=== PATIENT | male | born 1955 | race Caucasian/White ===

== ENCOUNTER 2020-04-18 08:20 | Outpatient (REF) | payer MEDICARE, SELFPAY ==
--- NOTE | 2020-04-18 13:24 | MHC.AU.P13 ---
Adult Audiological Evaluation Date of Visit: 04/18/20 Reason for Appointment: Audiological evaluation due to concerns for decreased hearing, particularly in the right ear. He feels that he is able to hear well most of the time, but notes that he turns the TV louder than his family members and noticed the right ear doesn't hear as well when he's wearing a headset. He also notes concerns for his balance which has been worsening over the past 5 years. Mr. Lee reports that he has been experiencing occasional tinnitus over the past year. Does patient feel they have a hearing loss?: Yes If Yes, Which Ear?: Right Ear When Was Hearing Difficulty First Noticed?: ~ 1 year ago Has hearing been tested previously?: Yes Previous Hearing Test Results: Several years ago, results not available to be reviewed today. He believes his hearing was normal at that time. Hearing Handicap Inventory: HHIE SCORE: 6 Based on HHIE score, patient has: No perceived hearing handicap Ear History: Family History of Hearing Loss?: Yes History of Ear Wax Buildup: Both Ears Bothersome Tinnitus/Ringing/Noises in Ears: Both ears, intermittent, sounds like insect buzzing, happens ~2x per week Medical History: Medical History: Cancer Medical History (Other): Skin cancer removed surgically, Skull fracture at age 3, TURP surgery, neuropathy of the lower extremities. He reports that he has been experiencing in some balance problems and frequently trips, which has resulted in a few falls. Otoscopy: Right Ear: Unremarkable Left Ear: Unremarkable Tympanometry: Right Ear: Hypercompliant Middle Ear System (Type Ad) Left Ear: Could Not Obtain Seal Hearing Evaluation: Transducer(s) Used: Insert Earphones, Bone Conduction Method: Conventional Audiometry Stimuli Used: Pure Tones Right Ear: Description of Hearing: Mild to moderate conductive hearing loss from 250-1000 Hz, mild sensorineural hearing loss at 1500 Hz, normal hearing at 2000 Hz, normal hearing with a 15 dBHL air-bone gap at 3000 Hz, mild conductive hearing loss at 4000 Hz, and a mild hearing loss at 8000 Hz. Left Ear: Description of Hearing: Normal hearing from 250-2000 with a 10-15 dBHL air-bone gap at 250-1000 Hz, sloping to a mild mixed hearing loss at 3000 Hz, a mild conductive hearing loss at 4000 Hz, and a moderate hearing loss at 8000 Hz. Speech Recognition Threshold (SRT): Method Used: Monitored Live Voice Stimuli Used: Spondee Words Right Ear: 30 dBHL Left Ear: 10 dBHL Word Discrimination: Method: Recorded Lists Word Lists Used: NU-6 Right Ear: 92% at 70 dBHL Left Ear: 88% at 50 dBHL Recommendations: Recommendations: Audiological re-evaluation if changes are noted. Audiological re-evaluation in one year. Referral to Ear, Nose, and Throat is recommended. Recommendations (Other): Given asymmetric, conductive hearing loss, recommend a referral to ENT to evaluate. Diagnosis: Primary Diagnosis: H90.6 Mixed Hearing Loss, Bilateral Services Performed: Services Performed: Comprehensive Audiological Evaluation (CPT 82554) Tympanometry (CPT 02717) Signature: Provider: Richard Pinto, CCC-A
== END 2020-04-18 08:21 | disposition home or self-care (01) ==
LOC: HO.SH 08:20
PROVIDERS: PCP Internal Medicine; Visit Provider Internal Medicine
DX: H90.6 Mixed conductive and sensorineural hearing loss, bilateral (principal)
CPT/HCPCS: 92557; 92567

== ENCOUNTER → 2021-06-10 11:28 | Outpatient (BNVA) | payer MEDICARE, SELFPAY | PROVIDERS: PCP Family Medicine; Visit Provider Psychiatry & Neurology Neurology | DX: G20 Parkinson's disease (principal); G25.81 Restless legs syndrome; R26.9 Unspecified abnormalities of gait and mobility; R20.0 Anesthesia of skin; R20.2 Paresthesia of skin | CPT/HCPCS: 99212 ==

== ENCOUNTER 2021-07-08 13:56 | Outpatient (REF) | payer MEDICARE, SELFPAY ==
--- NOTE | ~2021-07-08 | XR_ITS ---
EXAMINATION: XR CERVICAL SPINE CLINICAL INFORMATION: Fall. Pain. COMPARISON: None TECHNIQUE: 3 views of the cervical spine were obtained. FINDINGS: Bone alignment is normal. No fracture or dislocation is seen. There is multilevel degenerative spondylosis and degenerative disc disease from C3-4 to C7-T1, greatest at C4-C5, C5-C6 and C6-C7. There is degenerative spondylosis at C2-C3. There is bilateral facet arthritis. Prevertebral soft tissues are normal. XR/XR cervical spine 3V IMPRESSION: Severe degenerative changes. No fracture or dislocation seen.
--- NOTE | ~2021-07-08 | XR_ITS ---
EXAMINATION: XR LUMBOSACRAL SPINE CLINICAL INFORMATION: Pain. History of fall. COMPARISON: None TECHNIQUE: Three views of the lumbosacral spine. FINDINGS: Bone alignment is normal. No fracture or dislocation is seen. There is multilevel degenerative spondylosis. There is degenerative disc disease at L4-L5 and L5-S1. There is lower lumbar spine facet arthritis. XR/XR lumbar spine 2-3V IMPRESSION: Degenerative changes.
== END 2021-07-08 13:57 | disposition home or self-care (01) ==
LOC: HO.XRAY 13:56
PROVIDERS: Visit Provider Psychiatry & Neurology Neurology
DX: R26.9 Unspecified abnormalities of gait and mobility (principal); R20.0 Anesthesia of skin
CPT/HCPCS: 72040; 72100

== ENCOUNTER 2021-08-29 08:41 | Outpatient (REF) | payer MEDICARE, SELFPAY ==
--- NOTE | 2021-08-29 08:45 | EMG_ITS ---
Bilateral tibial and prone peroneal motor studies were performed. Bilateral superficial peroneal and sural sensory studies were performed. Tibial H reflexes were obtained and paraspinal muscles were tested with a needle. IMPRESSION: This study was quite abnormal suggestive of severe sensorimotor peripheral neuropathy that is likely demyelinating to start with. This type of pattern can be seen in later stages of chronic inflammatory demyelinating polyneuropathy. Appropriate investigations and management are recommended. MD ANA Gonzalez/MARISOL / [id number]
== END 2021-08-29 08:42 | disposition home or self-care (01) ==
LOC: HO.NEURO 08:41
PROVIDERS: Visit Provider Psychiatry & Neurology Neurology
DX: R20.0 Anesthesia of skin (principal); R20.2 Paresthesia of skin; R26.9 Unspecified abnormalities of gait and mobility
CPT/HCPCS: 95886; 95911

== ENCOUNTER → 2021-09-02 09:24 | Outpatient (BNVA) | payer MEDICARE, SELFPAY | PROVIDERS: PCP Family Medicine; Visit Provider Psychiatry & Neurology Neurology | DX: G20 Parkinson's disease (principal); G25.81 Restless legs syndrome; G62.89 Other specified polyneuropathies; R26.9 Unspecified abnormalities of gait and mobility | CPT/HCPCS: 99212 ==

== ENCOUNTER 2021-09-09 11:07 | Outpatient (REF) | payer MEDICARE, SELFPAY ==
[2021-09-09 11:42] LABS: MANUAL DIFF FLAG NO
[2021-09-09 12:23] LABS: Basophils Percent Auto 0.2 % (0-2); Eosinophils Absolute Auto 0.1 X10*3/uL (0.0-0.4); Eosinophils Percent Auto 1.1 % (0-4); Hematocrit 42.1 % (42.0-52.0); Hemoglobin 14.2 g/dl (14.0-18.0); Imm Gran Abs Auto 0.01 X10*3/uL (0.00-0.03); Imm Gran Pct Auto 0.2 % (0.0-0.4); Lymphocytes Absolute Auto 1.7 X10*3/uL (1.2-4.9); Mean Corpuscular HGB Conc 33.7 g/dl (31.0-36.0); Mean Corpuscular Hemoglobin 30.8 pg (27.0-33.0); Mean Corpuscular Volume 91.3 fL (80.0-98.0); Mean Platelet Volume 10.2 fL (9.4-12.4); Monocytes Absolute Auto 0.6 X10*3/uL (0.1-1.2); Monocytes Percent Auto 10.8 % (2-11); Neutrophils Absolute Auto 2.9 x10*3/uL (2.0-8.3); Neutrophils Percent Auto 55.7 % (45-73); Platelet Count 203 X10*3/uL (160-400); Red Blood Count 4.61 X10*6/uL (4.60-5.80); Red Cell Distribution Width 12.8 % (11.0-16.0); White Blood Count 5.3 X10*3/uL (4.8-10.8)
[2021-09-09 13:02] LABS: Alanine Aminotransferase 16 U/L (0-40); Albumin Level 4.1 g/dL (3.5-5.0); Alkaline Phosphatase 61 U/L (39-117); Anion Gap 13 (12-20); Aspartate Amino Transferase 14 U/L (5-37); Bilirubin Total 0.6 mg/dL (0.0-1.0); Blood Urea Nitrogen 15 mg/dL (9-16); C Reactive Protein 0.04 mg/dL (< or = 0.50); Calcium 9.2 mg/dL (8.4-10.2); Carbon Dioxide 27 mmol/L (22-29); Chloride 107 mmol/L (96-108); Estimated Glomerular Filt Rate > 60; Glucose Random 85 mg/dL (60-115); Potassium 4.2 mmol/L (3.3-5.1); Sodium 143 mmol/L (135-145); Total Protein 6.7 g/dL (6.5-8.0)
[2021-09-09 13:26] LABS: Thyroid Stimulating Hormone 1.01 uIU/mL (0.32-4.0)
[2021-09-09 13:29] LABS: Vitamin B12 227 pg/mL (200-900)
[2021-09-10 04:38] LABS: HBS Num1 9.69 mIU/mL (0-7.99); HBc Num1 0.05 S/CO (0.00-0.79); HBsAGNum1 0.21 S/CO (0.00-0.99); Hepatitis B Core Antibody Nonreactive (Nonreactive); Hepatitis B Surface Antigen Negative (Negative); ~HepC Num1 0.09 S/CO (0.00-0.79); ~Hepatitis C Antibody Nonreactive (Nonreactive)
[2021-09-10 05:20] LABS: ~Hepatitis B Surface Antibody GRAYZONE (Nonreactive)
[2021-09-10 21:17] LABS: Lyme Abs Screen <0.90 index
[2021-09-11 04:11] LABS: Hepatitis A Antibody IgM 0.26 Index (0-0.79); ~Hepatitis A Antibody IgM Nonreactive (Nonreactive)
[2021-09-11 23:32] LABS: Anti Nuclear Antibody Pattern Nuclear, Homogeneous; Anti Nuclear Antibody Screen POSITIVE (NEGATIVE); Anti Nuclear Antibody Titer 1:40 titer
[2021-09-12 15:11] LABS: Angiotensin Converting Enzyme 21.4 U/L (9-67)
[2021-09-18 16:51] LABS: Mercury, serum/plasma None Detected mcg/L
== END 2021-09-09 11:08 | disposition home or self-care (01) ==
LOC: HO.LAB 11:07
PROVIDERS: PCP Family Medicine; Visit Provider Psychiatry & Neurology Neurology
DX: G62.89 Other specified polyneuropathies (principal)
CPT/HCPCS: 36415; 80053; 82164; 82607; 82746; 83825; 84443; 85025; 86038; 86039; 86140; 86617; 86618; 86704; 86706; 86709; 86803; 87340

== ENCOUNTER → 2021-11-15 13:24 | Outpatient (BNVA) | payer MEDICARE, SELFPAY | PROVIDERS: PCP Family Medicine; Visit Provider Psychiatry & Neurology Neurology | DX: G20 Parkinson's disease (principal); R26.9 Unspecified abnormalities of gait and mobility; G25.81 Restless legs syndrome; G62.89 Other specified polyneuropathies | CPT/HCPCS: 99212 ==

== ENCOUNTER 2022-01-07 12:03 | Outpatient (REF) | payer MEDICARE, SELFPAY ==
--- NOTE | 2022-01-07 12:09 | ECG_ITS ---
Test Reason : circular symptoms r09.89 Blood Pressure : / mmHG Vent. Rate : 065 BPM Atrial Rate : 065 BPM P-R Int : 174 ms QRS Dur : 098 ms QT Int : 414 ms P-R-T Axes : 079 078 063 degrees QTc Int : 430 ms Sinus rhythm with marked sinus arrhythmia with occasional Premature ventricular complexes Otherwise normal ECG No previous ECGs available Referred By: Aba Soto Electronically Signed By:YOLANDE GONZALEZ
[2022-01-07 13:56] LABS: C Reactive Protein 0.07 mg/dL (< or = 0.50)
[2022-01-07 15:05] LABS: Appearance Urine Cloudy; Color Urine Yellow; Glucose Urine UA Negative (Negative); Leukocyte Esterase Urine Small (1+) (Negative); Nitrite Urine Positive (Negative); Urine Blood Negative (Negative); Urine Ketones Trace mg/dL (Negative); Urine Protein Trace mg/dL (Neg-Trace)
[2022-01-07 15:10] LABS: Bacteria Urine 4+ (None Seen); Hyaline Casts Urine 0-2 /LPF (0-2); RBC Urine 0-2 /HPF (0-2); Squamous Epithelial Cell Urine 0-2 /HPF (0-2)
[2022-01-07 15:28] LABS: Creatinine Urine 123.65 mg/dL; Protein/Creatinine Ratio, Ur 0.12 (<0.2); Total Protein Urine Random 15 mg/dL (<12)
[2022-01-08 12:47] LABS: Anti DNA DS Antibody <1 IU/mL; SM/Ribonucleoprotein Ab <1.0 NEG AI (<1.0 NEG); Smith Protein <1.0 NEG AI (<1.0 NEG)
== END 2022-01-07 12:04 | disposition home or self-care (01) ==
LOC: HO.LAB 12:03
PROVIDERS: PCP Family Medicine; Visit Provider Internal Medicine Rheumatology
DX: G62.89 Other specified polyneuropathies (principal); R09.89 Other specified symptoms and signs involving the circulatory and respiratory systems; R76.8 Other specified abnormal immunological findings in serum
CPT/HCPCS: 36415; 81001; 84156; 86140; 86225; 86235; 93005; 99202

== ENCOUNTER → 2022-02-14 15:27 | Outpatient (BNVA) | payer MEDICARE, SELFPAY | PROVIDERS: PCP Family Medicine; Visit Provider Psychiatry & Neurology Neurology | DX: G20 Parkinson's disease (principal); R26.9 Unspecified abnormalities of gait and mobility; G25.81 Restless legs syndrome; G62.89 Other specified polyneuropathies | CPT/HCPCS: 99212 ==

== ENCOUNTER → 2022-05-19 09:30 | Outpatient (BNVA) | payer MEDICARE, SELFPAY | PROVIDERS: PCP Family Medicine; Visit Provider Psychiatry & Neurology Neurology | DX: G20 Parkinson's disease (principal); R26.9 Unspecified abnormalities of gait and mobility; G25.81 Restless legs syndrome; G61.81 Chronic inflammatory demyelinating polyneuritis | CPT/HCPCS: 99212 ==

== ENCOUNTER 2022-06-09 07:46 | Outpatient (REF) | payer MEDICARE, SELFPAY | END 2022-06-09 07:47 | disposition home or self-care (01) | LOC: HO.MDS 07:46 | PROVIDERS: Visit Provider Psychiatry & Neurology Neurology | DX: G61.81 Chronic inflammatory demyelinating polyneuritis (principal) | CPT/HCPCS: 96365; 96366; J1569 ==

== ENCOUNTER 2022-06-11 07:56 | Outpatient (REF) | payer MEDICARE, SELFPAY | END 2022-06-11 07:57 | disposition home or self-care (01) | LOC: HO.MDS 07:56 | PROVIDERS: Visit Provider Psychiatry & Neurology Neurology | DX: G61.81 Chronic inflammatory demyelinating polyneuritis (principal) | CPT/HCPCS: 96365; 96366; J1569 ==

== ENCOUNTER 2022-06-13 08:04 | Outpatient (REF) | payer MEDICARE, SELFPAY | END 2022-06-13 08:05 | disposition home or self-care (01) | LOC: HO.MDS 08:04 | PROVIDERS: Visit Provider Psychiatry & Neurology Neurology | DX: G61.81 Chronic inflammatory demyelinating polyneuritis (principal) | CPT/HCPCS: 96365; 96366; J1569 ==

== ENCOUNTER 2022-06-18 08:00 | Outpatient (REF) | payer MEDICARE, SELFPAY | END 2022-06-18 08:01 | disposition home or self-care (01) | LOC: HO.MDS 08:00 | PROVIDERS: Visit Provider Psychiatry & Neurology Neurology | DX: G61.81 Chronic inflammatory demyelinating polyneuritis (principal) | CPT/HCPCS: 96365; 96366; J1569 ==

== ENCOUNTER 2022-06-20 08:06 | Outpatient (REF) | payer MEDICARE, SELFPAY | END 2022-06-20 08:07 | disposition home or self-care (01) | LOC: HO.MDS 08:06 | PROVIDERS: Visit Provider Psychiatry & Neurology Neurology | DX: G61.81 Chronic inflammatory demyelinating polyneuritis (principal) | CPT/HCPCS: 96365; 96366; J1569 ==

== ENCOUNTER 2022-07-14 08:06 | Outpatient (REF) | payer MEDICARE, SELFPAY | END 2022-07-14 08:07 | disposition home or self-care (01) | LOC: HO.MDS 08:06 | PROVIDERS: Visit Provider Psychiatry & Neurology Neurology | DX: G61.81 Chronic inflammatory demyelinating polyneuritis (principal) | CPT/HCPCS: 96365; 96366; J1569 ==

== ENCOUNTER 2022-07-16 08:34 | Outpatient (REF) | payer MEDICARE, SELFPAY | END 2022-07-16 08:35 | disposition home or self-care (01) | LOC: HO.MDS 08:34 | PROVIDERS: Visit Provider Psychiatry & Neurology Neurology | DX: G61.81 Chronic inflammatory demyelinating polyneuritis (principal) | CPT/HCPCS: 96365; 96366; J1569 ==

== ENCOUNTER 2022-07-18 08:25 | Outpatient (REF) | payer MEDICARE, SELFPAY | END 2022-07-18 08:26 | disposition home or self-care (01) | LOC: HO.MDS 08:25 | PROVIDERS: Visit Provider Psychiatry & Neurology Neurology | DX: G61.81 Chronic inflammatory demyelinating polyneuritis (principal) | CPT/HCPCS: 96365; 96366; J1569 ==

== ENCOUNTER 2022-07-21 08:36 | Outpatient (REF) | payer MEDICARE, SELFPAY | END 2022-07-21 08:37 | disposition home or self-care (01) | LOC: HO.MDS 08:36 | PROVIDERS: Visit Provider Psychiatry & Neurology Neurology | DX: G61.81 Chronic inflammatory demyelinating polyneuritis (principal) | CPT/HCPCS: 96365; 96366; J1569 ==

== ENCOUNTER 2022-07-25 08:30 | Outpatient (REF) | payer MEDICARE, SELFPAY | END 2022-07-25 08:31 | disposition home or self-care (01) | LOC: HO.MDS 08:30 | PROVIDERS: Visit Provider Psychiatry & Neurology Neurology | DX: G61.81 Chronic inflammatory demyelinating polyneuritis (principal) | CPT/HCPCS: 96365; 96366; J1569 ==

== ENCOUNTER 2022-08-11 08:33 | Outpatient (REF) | payer MEDICARE, SELFPAY | END 2022-08-11 08:34 | disposition home or self-care (01) | LOC: HO.MDS 08:33 | PROVIDERS: Visit Provider Psychiatry & Neurology Neurology | DX: G61.81 Chronic inflammatory demyelinating polyneuritis (principal) | CPT/HCPCS: 96365; 96366; J1569 ==

== ENCOUNTER 2022-08-15 08:34 | Outpatient (REF) | payer MEDICARE, SELFPAY | END 2022-08-15 08:35 | disposition home or self-care (01) | LOC: HO.MDS 08:34 | PROVIDERS: Visit Provider Psychiatry & Neurology Neurology | DX: G61.81 Chronic inflammatory demyelinating polyneuritis (principal) | CPT/HCPCS: 96365; 96366; J1569 ==

== ENCOUNTER 2022-08-22 08:37 | Outpatient (REF) | payer MEDICARE, SELFPAY | END 2022-08-22 08:38 | disposition home or self-care (01) | LOC: HO.MDS 08:37 | PROVIDERS: Visit Provider Psychiatry & Neurology Neurology | DX: G61.81 Chronic inflammatory demyelinating polyneuritis (principal) | CPT/HCPCS: 96365; 96366; 96367; J1569 ==

== ENCOUNTER → 2022-09-01 08:13 | Outpatient (BNVA) | payer MEDICARE, SELFPAY | PROVIDERS: PCP Family Medicine; Visit Provider Psychiatry & Neurology Neurology | DX: G20 Parkinson's disease (principal); R26.9 Unspecified abnormalities of gait and mobility; G25.81 Restless legs syndrome; G62.89 Other specified polyneuropathies | CPT/HCPCS: 99212 ==

== ENCOUNTER 2022-10-06 09:01 | Outpatient (REF) | payer MEDICARE, SELFPAY | END 2022-10-06 09:02 | disposition home or self-care (01) | LOC: HO.MDS 09:01 | PROVIDERS: Visit Provider Psychiatry & Neurology Neurology | DX: G61.81 Chronic inflammatory demyelinating polyneuritis (principal) | CPT/HCPCS: 96365; 96366; J1569 ==

== ENCOUNTER 2022-10-10 08:08 | Outpatient (REF) | payer MEDICARE, SELFPAY | END 2022-10-10 08:09 | disposition home or self-care (01) | LOC: HO.MDS 08:08 | PROVIDERS: Visit Provider Psychiatry & Neurology Neurology | DX: G61.81 Chronic inflammatory demyelinating polyneuritis (principal) | CPT/HCPCS: 96365; 96366; J1569 ==

== ENCOUNTER 2022-10-17 08:04 | Outpatient (REF) | payer MEDICARE, SELFPAY | END 2022-10-17 08:05 | disposition home or self-care (01) | LOC: HO.MDS 08:04 | PROVIDERS: Visit Provider Psychiatry & Neurology Neurology | DX: G61.81 Chronic inflammatory demyelinating polyneuritis (principal) | CPT/HCPCS: 96365; 96366; J1569 ==

== ENCOUNTER 2022-11-11 08:05 | Outpatient (REF) | payer MEDICARE, SELFPAY | END 2022-11-11 08:06 | disposition home or self-care (01) | LOC: HO.MDS 08:05 | PROVIDERS: Visit Provider Psychiatry & Neurology Neurology | DX: G61.81 Chronic inflammatory demyelinating polyneuritis (principal) | CPT/HCPCS: 96365; 96366; J1569 ==

== ENCOUNTER 2022-11-12 08:03 | Outpatient (REF) | payer MEDICARE, SELFPAY | END 2022-11-12 08:04 | disposition home or self-care (01) | LOC: HO.MDS 08:03 | PROVIDERS: Visit Provider Psychiatry & Neurology Neurology | DX: G61.81 Chronic inflammatory demyelinating polyneuritis (principal) | CPT/HCPCS: 96365; 96366; J1569 ==

== ENCOUNTER 2022-11-18 08:08 | Outpatient (REF) | payer MEDICARE, SELFPAY | END 2022-11-18 08:09 | disposition home or self-care (01) | LOC: HO.MDS 08:08 | PROVIDERS: Visit Provider Psychiatry & Neurology Neurology | DX: G61.81 Chronic inflammatory demyelinating polyneuritis (principal) | CPT/HCPCS: 96365; 96366; J1569 ==

== ENCOUNTER 2022-11-19 08:06 | Outpatient (REF) | payer MEDICARE, SELFPAY | END 2022-11-19 08:07 | disposition home or self-care (01) | LOC: HO.MDS 08:06 | PROVIDERS: Visit Provider Psychiatry & Neurology Neurology | DX: G61.81 Chronic inflammatory demyelinating polyneuritis (principal) | CPT/HCPCS: 96365; 96366; J1569 ==

== ENCOUNTER 2022-11-20 07:01 | Outpatient (REF) | payer MEDICARE, SELFPAY | END 2022-11-20 07:02 | disposition home or self-care (01) | LOC: HO.MDS 07:01 | PROVIDERS: Visit Provider Psychiatry & Neurology Neurology | DX: G61.81 Chronic inflammatory demyelinating polyneuritis (principal) | CPT/HCPCS: 96365; 96366; J1569 ==

== ENCOUNTER 2022-12-19 07:59 | Outpatient (REF) | payer MEDICARE, SELFPAY | END 2022-12-19 08:00 | disposition home or self-care (01) | LOC: HO.MDS 07:59 | PROVIDERS: Visit Provider Psychiatry & Neurology Neurology | DX: G61.81 Chronic inflammatory demyelinating polyneuritis (principal) | CPT/HCPCS: 96365; 96366; J1569 ==

== ENCOUNTER 2022-12-23 07:00 | Outpatient (REF) | payer MEDICARE, SELFPAY | END 2022-12-23 07:01 | disposition home or self-care (01) | LOC: HO.MDS 07:00 | PROVIDERS: Visit Provider Psychiatry & Neurology Neurology | DX: G61.81 Chronic inflammatory demyelinating polyneuritis (principal) | CPT/HCPCS: 96365; 96366; J1569 ==

== ENCOUNTER 2022-12-24 08:03 | Outpatient (REF) | payer MEDICARE, SELFPAY | END 2022-12-24 08:04 | disposition home or self-care (01) | LOC: HO.MDS 08:03 | PROVIDERS: Visit Provider Psychiatry & Neurology Neurology | DX: G61.81 Chronic inflammatory demyelinating polyneuritis (principal) | CPT/HCPCS: 96365; 96366; J1569 ==

== ENCOUNTER 2022-12-26 08:00 | Outpatient (REF) | payer MEDICARE, SELFPAY | END 2022-12-26 08:01 | disposition home or self-care (01) | LOC: HO.MDS 08:00 | PROVIDERS: Visit Provider Psychiatry & Neurology Neurology | DX: G61.81 Chronic inflammatory demyelinating polyneuritis (principal) | CPT/HCPCS: 96365; 96366; J1569 ==

== ENCOUNTER 2022-12-30 06:56 | Outpatient (REF) | payer MEDICARE, SELFPAY | END 2022-12-30 06:57 | disposition home or self-care (01) | LOC: HO.MDS 06:56 | PROVIDERS: Visit Provider Psychiatry & Neurology Neurology | DX: G61.81 Chronic inflammatory demyelinating polyneuritis (principal) | CPT/HCPCS: 96365; 96366; J1569 ==

== ENCOUNTER 2023-02-13 07:34 | Outpatient (AMB) | payer MEDICARE, SELFPAY ==
--- NOTE | 2023-02-13 07:38 | A.OFFVIS_ITS ---
Intake Vital Signs 02/13/23 07:42 Weight 178 lb 2 oz BP 130/92 H Blood Pressure Location Rt brachial Position Sitting Pulse 69 Pulse Source Pulse Oximeter Pulse Oximetry (%) 100 Oxygen Delivery Method Room Air Intake Visit Reasons: 4m follow up Parkinson Intake Note: F/U for Parkinsons, patient states he has been tripping more. 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 He is tripping a lot more now and had a few falls. He tripped over a root.Most falls are when he is rushing. His main concern is his leg symptoms , twitching at night. Ropinirole helps but sometimes he has breakthrough episodes at night.He has 2 good nights s a week.He reports muscle spasms.They wake him up and worse in evenings, rest. He did well with IV IG but holding on treatments as he a developed a skin rash- after 12 treatment of Iv Ig . It is mild and recovering. Personal Care Assistant did not think it was IV IG.His last treatment was 2 months ago and he feels an abnormal sensation in his hawa feet. His GERMAN showed hawa basal ganglia decreased uptake c/w Parkinsonism His Parkinsonism is stable. He sees a psyhciatrist. Mood is OK. He reports increased numbness and tingling in hawa feet and left UE when he wakes up. 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 No back pain now. He has h/o chronic constipation- managing . He also reports lightheadedness on climbing stairs . No falls. Memory is OK Neuropsych testing was normal [facility] Medical History Cognitive disorder Back pain Anxiety Depression Hyperlipidemia Non-melanoma skin cancer Surgical History History of ear surgery Family History Father Myocardial infarction Family/Other Cancer Family/Other Breast cancer Mother Skin cancer Social History Household Members: Spouse Housing: House Alcohol intake: current Alcohol intake frequency: holidays/special occasions only Alcohol type: beer and hard liquor Patient Tobacco Use Status: Never used Tobacco e-Cigarette/Vaping Use: Never Used service: No Current occupational status: employed 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 FFM decreased hawa Foot taps decreased hawa DTR 1-2/5 gait , rushes , mild off balance General: patient oriented x3 Assessment & Plan Assessment & Plan (1) Parkinson's disease: Code(s): G20 - Parkinson's disease (2) Gait disorder: Code(s): R26.9 - Unspecified abnormalities of gait and mobility (3) Restless legs syndrome: Code(s): G25.81 - Restless legs syndrome (4) Peripheral demyelinating neuropathy: Comment: CIDP Code(s): G62.89 - Other specified polyneuropathies Plan Switch to Ropinirole XR 2 mg qhs and use ropinirole 0.5 mg 1/2 as needed Vit B 12 and vit D supplementation Orders: Orders NE electromyogram (EMG) Today G62.89 - Other specified polyneuropathies Medications: New ropinirole ER 2 mg PO BEDTIME 30 tabs 6RF ropinirole ER 2 mg PO BEDTIME 30 tabs 6RF Coding Level of Care Code Est Pt Level 4 (09718) Diagnoses Parkinson's disease G20 Gait disorder R26.9 Restless legs syndrome G25.81 Peripheral demyelinating neuropathy G62.89
[2023-02-13 07:42] VITALS: BP 130/92; PULSE 69; O2SAT 100
== END 2023-02-13 08:05 | disposition home or self-care (01) ==
PROVIDERS: Visit Provider Psychiatry & Neurology Neurology
DX: G20.C Parkinsonism, unspecified (principal); R26.9 Unspecified abnormalities of gait and mobility; G25.81 Restless legs syndrome; G62.89 Other specified polyneuropathies
CPT/HCPCS: 99214

== ENCOUNTER → 2023-02-13 07:34 | Outpatient (BNVA) | payer MEDICARE, SELFPAY | PROVIDERS: Visit Provider Psychiatry & Neurology Neurology | DX: G20.A1 Parkinson's disease without dyskinesia, without mention of fluctuations (principal); R26.9 Unspecified abnormalities of gait and mobility; G25.81 Restless legs syndrome; G62.89 Other specified polyneuropathies | CPT/HCPCS: 99212 ==

== ENCOUNTER 2023-02-18 08:38 | Outpatient (REF) | payer MEDICARE, SELFPAY ==
--- NOTE | 2023-02-18 08:41 | EMG_ITS ---
Please see scanned EMG / Nerve Conduction Report. MTDD
== END 2023-02-18 08:39 | disposition home or self-care (01) ==
LOC: HO.NEURO 08:38
PROVIDERS: PCP Family Medicine; Visit Provider Psychiatry & Neurology Neurology
DX: G62.89 Other specified polyneuropathies (principal)
CPT/HCPCS: 95885; 95911

== ENCOUNTER 2024-11-17 08:35 | Outpatient (AMB) | payer MEDICARE, SELFPAY ==
--- OUTSIDE RECORDS SUMMARY | 2024-11-17 08:42 | XMS_ITS | Data Portability ---
Author Organization [facility], Main Office Address [address] [facility] [address] [place] [id number] Care Team Providers Care Skin Toggler Name Role Phone THANIA RODRIGUEZ Media Planner RANDAL MILLARD Primary Care Provider KAREEM HERNANDEZ General Surgeon [phone] Assessment No assessment recorded. Plan of Treatment Reminders Order Date Submit Date Provider Last Modified By Organization Details Last Modified Time Details Appointments None recorded. Lab lipid panel, serum 2017 018 [id number], [address] [place], [address], 8 22:33:50 ALT (alanine aminotrans ferase), serum or plasma 2017 018 [id number], [address] [place], [address], 8 22:33:47 AST/SGOT (aspartate aminotrans ferase), serum or plasma 2017 018 [id number], [address] [place], [address], 8 22:33:48 BMP, serum or plasma 2017 018 [id number], [address] [place], [address], 8 22:33:49 Referral general surgeon referral 2018 019 martina [facility], [address], [address], [place], [address], 9 16:06:43 general surgeon referral - pt wants lipoma removed from upper back 2017 018 rosanne Cronin MD, [address], [address], [place], [address], 8 15:30:07 general surgeon referral - pt has lipoma on left interspina l area and wants it removed 2016 017 rosanne Cronin MD, [address], [address], [place], [address], 7 10:01:34 neurologis t referral - pt notes worsening sx in terms of plantar feet sensitivit y/ and he has noted balance problems/ pt wants to know if he has any other options like Phys tx 2016 017 martina Stephens MD, [address] [place] [address] Dr, [facility] [address], [address], 7 19:42:45 Procedures None recorded. Surgeries None recorded. Imaging None recorded. Medication Orders tadalafil 20 mg tablet 2018 019 [id number], [address] [place], [place], [id number], 9 09:37:27 lovastatin 20 mg tablet 2018 019 [id number], [address] [place], [place], [id number], 9 09:37:27 Bactrim DS 800 mg-160 mg tablet 2017 018 [id number], [address], [place], [id number], 9 08:43:15 Bactrim DS 800 mg-160 mg tablet 2016 017 [facility] 3, [address] [place] [address], [address], 9 08:43:15 Patient TargetsNo targets recorded. Patient Instructions Encounter Date Encounter Id Patient Instructions Last Modified By Organization Details Last Modified Time 08/22/2016 [id number] Medications (OTC, herbal therapies, supplements) reviewed and reconciled with patient and or caregiver, including potential side effects, drug interactions, instructions, and the consequences of not taking medication. Reviewed potential barriers to medication adherence, such as side effects from medication or cost of medication. claritza Not available 08/22/2016 15:01:07 01/28/2017 [id number] rec. take probiotic supplement or saudi arabian yogurt while on abx pmadden Not available 01/28/2017 10:16:38 Follow up if no improvement or if symptoms worsen. I have reviewed the note and agree with the assessment and plan of care. arslan Not available 01/28/2017 10:39:29 04/09/2018 [id number] sitz bath info awychowski Not available 04/09/2018 09:50:36 skin abscess: care instructions awychowski Not available 04/09/2018 09:50:36 cellulitis: care instructions awychowski Not available 04/09/2018 09:50:36 Please apply a warm compress for 20min 4 times daily. awychowski Not available 04/09/2018 09:53:48 05/31/2018 [id number] Medications (OTC, herbal therapies, supplements) reviewed and reconciled with patient and or caregiver, including potential side effects, drug interactions, instructions, and the consequences of not taking medication. Reviewed potential barriers to medication adherence, such as side effects from medication or cost of medication. 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 pt notes worsening sx in terms of plantar feet sensitivity/ and he has noted balance problems/ pt wants to know if he has any other options like Phys tx Referring Physician: Damian Lind, Internal Medicine, Encounter Date: 08/22/2016 General Surgeon Referral for Lipoma of back pt wants lipoma removed from upper back Referring Physician: Damian Lind, Internal Medicine, Encounter Date: 05/28/2017 General Surgeon Referral for Lipoma of back Referring Physician: Randal Millard, Internal Medicine, Encounter Date: 05/31/2018 Results Created Date Observation Date Name Description Value Unit Range Abnormal Flag Note LastModifiedBy Organization Detail LastModifiedTime 01/28/2001/27/2017 BMP, serum or plasm a glucose 100 mg/dL (70-99 ) high Not Available [facility] (Centralized Electronic Ordering - All Locations) Patient Can Go To The Location Of Their Choice, 01/27/2017 11:19:45 01/28/2001/27/2017 BMP, serum or plasm a BUN 11 mg/dL (8-23) Not Available [facility] (Centralized Electronic Ordering - All Locations) Patient Can Go To The Location Of Their Choice, 01/27/2017 11:19:45 01/28/2001/27/2017 BMP, serum or plasm a creatinine 0.9 mg/dL (0.7-1 .2) Not Available [facility] (Centralized Electronic Ordering - All Locations) Patient Can Go To The Location Of Their Choice, 01/27/2017 11:19:45 01/28/2001/27/2017 BMP, serum or plasm a sodium 139 mmol/ L (133-1 45) Not Available [facility] (Centralized Electronic Ordering - All Locations) Patient Can Go To The Location Of Their Choice, 01/27/2017 11:19:45 01/28/2001/27/2017 BMP, serum or plasm a potassium 4.4 mmol/ L (3.6-5 .2) Not Available [facility] (Centralized Electronic Ordering - All Locations) Patient Can Go To The Location Of Their Choice, 01/27/2017 11:19:45 01/28/2001/27/2017 BMP, serum or plasm a chloride 102 mmol/ L (98-10 7) Not Available [facility] (Centralized Electronic Ordering - All Locations) Patient Can Go To The Location Of Their Choice, 01/27/2017 11:19:45 01/28/2001/27/2017 BMP, serum or plasm a bicarbonate 25 mmol/ L (22-29 ) Not Available [facility] (Centralized Electronic Ordering - All Locations) Patient Can Go To The Location Of Their Choice, 01/27/2017 11:19:45 01/28/2001/27/2017 BMP, serum or plasm a anion gap 12 (4-17) Not Available [facility] (Centralized Electronic Ordering - All Locations) Patient Can Go To The Location Of Their Choice, 01/27/2017 11:19:45 01/28/2001/27/2017 BMP, serum or plasm a calcium 8.8 mg/dL (8.6-1 0.5) Not Available [facility] (Centralized Electronic Ordering - All Locations) Patient Can Go To The Location Of Their Choice, 01/27/2017 11:19:45 01/28/2001/27/2017 BMP, serum or plasm a est GFR non 91 mL/mi n/1.7 3_M2 The CKD-E PI creat inine equat ion has not been valid ated in child kailee (<18 years ), pregn ant women , in some racia l or ethni c subgr oups other than Cauca sians and Afric an Ameri cans. Not Available [facility] (Centralized Electronic Ordering - All Locations) Patient Can Go To The Location Of Their Choice, 01/27/2017 11:19:45 01/28/2001/27/2017 BMP, serum or plasm a est GFR 106 mL/mi n/1.7 3_M2 The CKD-E PI creat inine equat ion has not been valid ated in child kailee (<18 years ), pregn ant women , in some racia l or ethni c subgr oups other than Cauca sians and Afric an Ameri cans. Not Available [facility] (Centralized Electronic Ordering - All Locations) Patient Can Go To The Location Of Their Choice, 01/27/2017 11:19:45 01/28/2001/27/2017 corti denzel, serum or plasm a cortisol 14.2 ug/dL Refer ence Range : 6-10 am: 6.0-1 8.4 ug/dL 4-8 pm: 2.7-1 0.5 ug/dL Not Available [facility] (Centralized Electronic Ordering - All Locations) Patient Can Go To The Location Of Their Choice, 01/27/2017 11:32:35 01/28/20 17 01/27/2017 insul in, serum insulin 11.3 uIU/m L (2.6-2 4.9) Not Available [facility] (Centralized Electronic Ordering - All Locations) Patient Can Go To The Location Of Their Choice, 01/27/2017 11:32:36 01/28/20 17 01/27/2017 HbA1c (hemo globi n A1c), blood hemoglobin A1C 5.4 % (4-6) HEMOG LOBIN A1C(% ) GLUCO SE CONTR OL INDEX <6% EXCEL LENT 6-7% VERY GOOD 7-8% GOOD 8-10% FAIR >10% POOR Hemog lobin (Hb) A1c testi ng is perfo rmed by Maira Elidia- quant immun oassa y. Any cause of short ened eryth rocyt e survi pawan will reduc e expos ure of eryth rocyt es to gluco se with a conse quent decre ase in Hb A1c (%). Not Available [facility] (Centralized Electronic Ordering - All Locations) Patient Can Go To The Location Of Their Choice, 01/27/2017 13:26:01 01/28/20 17 01/27/2017 vitam in D, 25-hy droxy , total , serum 25OH vitamin D 33.7 NG/mL (20-50 ) SERUM 25OHD : 20 TO 50 NG/ML : SUFFI CIENT IN VITAM IN D. Refer ence: [facility] Data Brief : No.59 July: Vitam in D Statu s: Unite d State s: 2000- 2005 Not Available [facility] (Centralized Electronic Ordering - All Locations) Patient Can Go To The Location Of Their Choice, 01/27/2017 14:12:33 09/02/19 18 09/01/2017 ALT ([place] ine amino trans feras e), serum or plasm a ALT 21 U/L (0-41) Not Available [facility] (Centralized Electronic Ordering - All Locations) Patient Can Go To The Location Of Their Choice, 09/01/2017 22:33:46 09/02/1909/01/2017 AST/S GOT (aspa rtate amino trans feras e), serum or plasm a AST 15 U/L (0-38) Not Available [facility] (Centralized Electronic Ordering - All Locations) Patient Can Go To The Location Of Their Choice, 09/01/2017 22:33:48 09/02/1909/01/2017 BMP, serum or plasm a glucose 94 mg/dL (70-99 ) Not Available [facility] (Centralized Electronic Ordering - All Locations) Patient Can Go To The Location Of Their Choice, 09/01/2017 22:33:49 09/02/1909/01/2017 BMP, serum or plasm a BUN 12 mg/dL (8-23) Not Available [facility] (Centralized Electronic Ordering - All Locations) Patient Can Go To The Location Of Their Choice, 09/01/2017 22:33:49 09/02/1909/01/2017 BMP, serum or plasm a creatinine 0.9 mg/dL (0.7-1 .2) Not Available [facility] (Centralized Electronic Ordering - All Locations) Patient Can Go To The Location Of Their Choice, 09/01/2017 22:33:49 09/02/1909/01/2017 BMP, serum or plasm a sodium 142 mmol/ L (133-1 45) Not Available [facility] (Centralized Electronic Ordering - All Locations) Patient Can Go To The Location Of Their Choice, 09/01/2017 22:33:49 09/02/1909/01/2017 BMP, serum or plasm a potassium 4.2 mmol/ L (3.6-5 .2) Not Available [facility] (Centralized Electronic Ordering - All Locations) Patient Can Go To The Location Of Their Choice, 09/01/2017 22:33:49 09/02/1909/01/2017 BMP, serum or plasm a chloride 103 mmol/ L (98-10 7) Not Available [facility] (Centralized Electronic Ordering - All Locations) Patient Can Go To The Location Of Their Choice, 09/01/2017 22:33:49 09/02/1909/01/2017 BMP, serum or plasm a bicarbonate 26 mmol/ L (22-29 ) Not Available [facility] (Centralized Electronic Ordering - All Locations) Patient Can Go To The Location Of Their Choice, 09/01/2017 22:33:49 09/02/1909/01/2017 BMP, serum or plasm a anion gap 13 (4-17) Not Available [facility] (Centralized Electronic Ordering - All Locations) Patient Can Go To The Location Of Their Choice, 09/01/2017 22:33:49 09/02/1909/01/2017 BMP, serum or plasm a calcium 8.7 mg/dL (8.6-1 0.5) Not Available [facility] (Centralized Electronic Ordering - All Locations) Patient Can Go To The Location Of Their Choice, 09/01/2017 22:33:49 09/02/1909/01/2017 BMP, serum or plasm a est GFR non 91 mL/mi n/1.7 3_M2 Creat inine based estim ated glome rular filtr ation rate (eGFR ) is calcu lated using the Chron ic Kidne y Disea se Epide miolo gy Colla borat ion (CKD- EPI). The CKD-E PI creat inine equat ion has not been valid ated in child kailee (<18 years ), pregn ant women or in some racia l or ethni c subgr oups other than Cauca sians and Afric an Ameri cans. Not Available [facility] (Centralized Electronic Ordering - All Locations) Patient Can Go To The Location Of Their Choice, 09/01/2017 22:33:49 09/02/1909/01/2017 BMP, serum or plasm a est GFR 106 mL/mi n/1.7 3_M2 Creat inine based estim ated glome rular filtr ation rate (eGFR ) is calcu lated using the Chron ic Kidne y Disea se Epide miolo gy Colla borat ion (CKD- EPI). The CKD-E PI creat inine equat ion has not been valid ated in child kailee (<18 years ), pregn ant women or in some racia l or ethni c subgr oups other than Cauca sians and Afric an Ameri cans. Not Available [facility] (Centralized Electronic Ordering - All Locations) Patient Can Go To The Location Of Their Choice, 09/01/2017 22:33:49 09/02/1909/01/2017 lipid panel , serum cholesterol, total 163 mg/dL (<200) Not Available [facility] (Central[facility] Ordering - All Locations) Patient Can Go To The Location Of Their Choice, 09/01/2017 22:33:50 09/02/1909/01/2017 lipid panel , serum triglyceride 102 mg/dL (<150) Not Available [facility] ([facility] Order[facility] - All Locations) Patient Can Go To The Location Of Their Choice, 09/01/2017 22:33:50 09/02/1909/01/2017 lipid panel , serum HDL chol 62 mg/dL (>39) Not Available [facility] (Centralized Electronic Ordering - All Locations) Patient Can Go To The Location Of Their Choice, 09/01/2017 22:33:50 09/02/1909/01/2017 lipid panel , serum LDL cholesterol, calculated 81 mg/dL (0-130 ) Not Available [facility] (Centralized Electronic Ordering - All Locations) Patient Can Go To The Location Of Their Choice, 09/01/2017 22:33:50 09/02/1909/01/2017 lipid panel , serum non HDL cholesterol (calc) 101 mg/dL (<160) Not Available [facility] ([facility] Ordering - All Locations) Patient Can Go To The Location Of Their Choice, 09/01/2017 22:33:50 05/25/1905/25/2018 CBC w/ auto diff WBC 4.2 K/mm3 (4.0-1 1.0) Not Available [facility] (Centralized Electronic Ordering - All Locations) Patient Can Go To The Location Of Their Choice, 05/25/2018 14:30:08 05/25/1905/25/2018 CBC w/ auto diff RBC 4.59 M/mm3 (4.70- 6.10) low Not Available [facility] (Centralized Electronic Ordering - All Locations) Patient Can Go To The Location Of Their Choice, 05/25/2018 14:30:08 05/25/1905/25/2018 CBC w/ auto diff HGB 13.8 gm/dL (13.7- 16.5) Not Available [facility] (Centralized Electronic Ordering - All Locations) Patient Can Go To The Location Of Their Choice, 05/25/2018 14:30:05/25/1905/25/2018 CBC w/ auto diff HCT 42.2 % (40.5- 48.5) Not Available [facility] (Centralized Electronic Ordering - All Locations) Patient Can Go To The Location Of Their Choice, 05/25/2018 14:30:05/25/1905/25/2018 CBC w/ auto diff MCV 91.9 fL (80.0- 94.0) Not Available [facility] (Centralized Electronic Ordering - All Locations) Patient Can Go To The Location Of Their Choice, 05/25/2018 14:30:05/25/1905/25/2018 CBC w/ auto diff MCH 30.1 pg (27.0- 34.0) Not Available [facility] (Centralized Electronic Ordering - All Locations) Patient Can Go To The Location Of Their Choice, 05/25/2018 14:30:05/25/1905/25/2018 CBC w/ auto diff MCHC 32.7 g/dL (33.0- 37.0) low Not Available [facility] (Centralized Electronic Ordering - All Locations) Patient Can Go To The Location Of Their Choice, 05/25/2018 14:30:05/25/1905/25/2018 CBC w/ auto diff plt 168 K/mm3 (150-4 60) Not Available [facility] (Centralized Electronic Ordering - All Locations) Patient Can Go To The Location Of Their Choice, 05/25/2018 14:30:05/25/1905/25/2018 CBC w/ auto diff RDW-SD 46.1 fL (<47.0 ) Not Available [facility] (Centralized Electronic Ordering - All Locations) Patient Can Go To The Location Of Their Choice, 05/25/2018 14:30:05/25/1905/25/2018 CBC w/ auto diff MPV 11.6 fL (9.4-1 2.4) Not Available [facility] (Centralized Electronic Ordering - All Locations) Patient Can Go To The Location Of Their Choice, 05/25/2018 14:30:08 05/25/19 19 05/25/2018 CBC w/ auto diff automated NRBC 0.0 #/100 _WBC' s Not Available [facility] (Centralized Electronic Ordering - All Locations) Patient Can Go To The Location Of Their Choice, 05/25/2018 14:30:08 05/25/19 19 05/25/2018 CBC w/ auto diff abs. NRBC 0.0 K/mm3 Not Available [facility] (Centralized Electronic Ordering - All Locations) Patient Can Go To The Location Of Their Choice, 05/25/2018 14:30:08 05/25/1905/25/2018 TSH, serum or plasm a TSH 1.56 mIU/m L (0.40- 4.00) Not Available [facility] (Centralized Electronic Ordering - All Locations) Patient Can Go To The Location Of Their Choice, 05/25/2018 17:09:27 05/25/1905/25/2018 CMP, serum or plasm a glucose 104 mg/dL (70-99 ) high Not Available [facility] (Centralized Electronic Ordering - All Locations) Patient Can Go To The Location Of Their Choice, 05/25/2018 17:13:35 05/25/1905/25/2018 CMP, serum or plasm a BUN 12 mg/dL (8-23) Not Available [facility] (Centralized Electronic Ordering - All Locations) Patient Can Go To The Location Of Their Choice, 05/25/2018 17:13:35 05/25/1905/25/2018 CMP, serum or plasm a creatinine 0.9 mg/dL (0.7-1 .2) Not Available [facility] (Centralized Electronic Ordering - All Locations) Patient Can Go To The Location Of Their Choice, 05/25/2018 17:13:35 05/25/1905/25/2018 CMP, serum or plasm a sodium 142 mmol/ L (133-1 45) Not Available [facility] (Centralized Electronic Ordering - All Locations) Patient Can Go To The Location Of Their Choice, 05/25/2018 17:13:35 05/25/1905/25/2018 CMP, serum or plasm a potassium 4.2 mmol/ L (3.6-5 .2) Not Available [facility] (Centralized Electronic Ordering - All Locations) Patient Can Go To The Location Of Their Choice, 05/25/2018 17:13:35 05/25/1905/25/2018 CMP, serum or plasm a chloride 102 mmol/ L (98-10 7) Not Available [facility] (Centralized Electronic Ordering - All Locations) Patient Can Go To The Location Of Their Choice, 05/25/2018 17:13:35 05/25/1905/25/2018 CMP, serum or plasm a bicarbonate 27 mmol/ L (22-29 ) Not Available [facility] (Centralized Electronic Ordering - All Locations) Patient Can Go To The Location Of Their Choice, 05/25/2018 17:13:35 05/25/1905/25/2018 CMP, serum or plasm a anion gap 13 (4-17) Not Available [facility] (Centralized Electronic Ordering - All Locations) Patient Can Go To The Location Of Their Choice, 05/25/2018 17:13:35 05/25/1905/25/2018 CMP, serum or plasm a albumin 4.5 gm/dL (3.4-4 .8) Not Available [facility] (Centralized Electronic Ordering - All Locations) Patient Can Go To The Location Of Their Choice, 05/25/2018 17:13:35 05/25/1905/25/2018 CMP, serum or plasm a calcium 8.8 mg/dL (8.6-1 0.5) Not Available [facility] (Centralized Electronic Ordering - All Locations) Patient Can Go To The Location Of Their Choice, 05/25/2018 17:13:35 05/25/1905/25/2018 CMP, serum or plasm a bilirubin,to swapnil 0.6 mg/dL (0-1.2 ) Not Available [facility] (Centralized Electronic Ordering - All Locations) Patient Can Go To The Location Of Their Choice, 05/25/2018 17:13:35 05/25/1905/25/2018 CMP, serum or plasm a total protein 6.8 gm/dL (6.2-8 .2) Not Available [facility] (Centralized Electronic Ordering - All Locations) Patient Can Go To The Location Of Their Choice, 05/25/2018 17:13:35 05/25/1905/25/2018 CMP, serum or plasm a Ag ratio 2.0 Not Available [facility] (Centralized Electronic Ordering - All Locations) Patient Can Go To The Location Of Their Choice, 05/25/2018 17:13:35 05/25/1905/25/2018 CMP, serum or plasm a AST 20 U/L (0-38) Not Available [facility] (Centralized Electronic Ordering - All Locations) Patient Can Go To The Location Of Their Choice, 05/25/2018 17:13:35 05/25/1905/25/2018 CMP, serum or plasm a alk phos 62 U/L (40-12 9) Not Available [facility] (Centralized Electronic Ordering - All Locations) Patient Can Go To The Location Of Their Choice, 05/25/2018 17:13:35 05/25/1905/25/2018 CMP, serum or plasm a ALT 23 U/L (0-41) Not Available [facility] (Centralized Electronic Ordering - All Locations) Patient Can Go To The Location Of Their Choice, 05/25/2018 17:13:35 05/25/1905/25/2018 CMP, serum or plasm a est GFR non 91 mL/mi n/1.7 3_M2 Creat inine based estim ated glome rular filtr ation rate (eGFR ) is calcu lated using the Chron ic Kidne y Disea se Epide miolo gy Colla borat ion (CKD- EPI). The CKD-E PI creat inine equat ion has not been valid ated in child kailee (<18 years ), pregn ant women or in some racia l or ethni c subgr oups other than Cauca sians and Afric an Ameri cans. Not Available [facility] (Centralized Electronic Ordering - All Locations) Patient Can Go To The Location Of Their Choice, 05/25/2018 17:13:35 05/25/1905/25/2018 CMP, serum or plasm a est GFR 105 mL/mi n/1.7 3_M2 Creat inine based estim ated glome rular filtr ation rate (eGFR ) is calcu lated using the Chron ic Kidne y Disea se Epide miolo gy Colla borat ion (CKD- EPI). The CKD-E PI john blakely ion has not been valid ated in child kailee (<18 years ), pregn ant women or in some racia l or ethni c subgr oups other than Rachael atwood and Afric an Joseeri cans. Not Available [facility] (Centralized Electronic Ordering - All Locations) Patient Can Go To The Location Of Their Choice, [id number] 05/25/2018 17:13:35 05/25/1905/25/2018 lipid panel , serum cholesterol, total 167 mg/dL (<200) Not Available [facility] ([facility] Ordering - All Locations) Patient Can Go To The Location Of Their Choice, 05/25/2018 17:13:37 05/25/1905/25/2018 lipid panel , serum triglyceride 129 mg/dL (<150) Not Available [facility] Order[facility] - All Locations) Patient Can Go To The Location Of Their Choice, 05/25/2018 17:13:37 05/25/1905/25/2018 lipid panel , serum HDL chol 60 mg/dL (>39) Not Available [facility] (Centralized Electronic Ordering - All Locations) Patient Can Go To The Location Of Their Choice, 05/25/2018 17:13:37 05/25/1905/25/2018 lipid panel , serum LDL cholesterol, calculated 81 mg/dL (0-130 ) Not Available [facility] (Centralized Electronic Ordering - All Locations) Patient Can Go To The Location Of Their Choice, 05/25/2018 17:13:37 05/25/1905/25/2018 lipid panel , serum non HDL cholesterol (calc) 107 mg/dL (<160) Not Available [facility] ([facility] Ordering - All Locations) Patient Can Go To The Location Of Their Choice, 05/25/2018 17:13:37 05/25/1905/25/2018 vitam in D, 25-hy droxy , total , serum 25OH vitamin D 27.9 NG/mL (20-50 ) Serum 25OHD : 20 to 50 ng/mL : suffi cient in vitam in D. Refer ence: [facility] Data Brief : No.59 July: Vitam in D Statu s: Unite d State s: [address] As of , Vitam in D, 25-Hy droxy assay has been [facility]. [facility], the new assay may yield a highe r value (up to 15% incre ase) in dinorah rison to the old assay . These incre ases would mainl y be notic eable at value s of great er than 50 ng/ml . Not Available [facility] (Centralized Electronic Ordering - All Locations) Patient Can Go To The Location Of Their Choice, [id number] 05/25/2018 17:17:43 05/25/1905/25/2018 HbA1c (hemo globi n A1c), blood hemoglobin A1C, (diagnostic) 5.5 % (0-5.6 ) RENATO L TEST DIABE [facility], VOLUM E 33, SUPPL EMENT 1, JANLORENZA RY,20 10 Hemog lobin (Hb) A1c testi ng is perfo rmed by Maira Elidia- quant immun oassa y. Any cause of short ened eryth rocyt e survi pawan will reduc e expos ure of eryth rocyt es to gluco se with a conse quent decre ase in Hb A1c (%). Cause s of short ened eryth rocyt e lifet kinjal might be hemol ytic anemi a or other hemol ytic disea ses, prese nce of homoz ygous forms of abnor mal Hb (eg, SS, CC, SC), pregn vu, or recen t signi fican t or chron ic blood loss. Speci mens conta ining Hb F highe r than 10 perce nt of total Hb may resul t in lower than expec leola % Hb A1c. Not Available [facility] (Centralized Electronic Ordering - All Locations) Patient Can Go To The Location Of Their Choice, [id number] 05/25/2018 20:55:44 05/25/1905/26/2018 hepat itis C virus Ab, serum anti-hepatit is C NEGAT ANAM Refer ence range : Negat anam This test was perfo rmed on the Abbot t Archi tect immun oassa y syste m. Not Available [facility] (Centralized Electronic Ordering - All Locations) Patient Can Go To The Location Of Their Choice, [id number] 05/26/2018 08:07:52 08/26/19 17 08/16/2016 XR, cervi kerry spine No observ ation record ed. [email or web address] [address] , [place], [address], 08/25/2016 12:27:16 Result Notes None recorded. 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 Liseth regalado [facility] 6 09:16:08 Infectiv e hepatiti s immuniza tion Completed 200811/15/2013 RECORDED 05/24/19 09 9:24AM BY DAYNA RIOS, NURSE VISIT Liseth regalado [facility] 6 09:16:09 Infectiv e hepatiti s immuniza tion Completed 200812/08/2013 RECORDED 05/24/19 09 9:24AM BY DAYNA RIOS, NURSE VISIT Liseth regalado [facility] 6 09:16:09 Infectiv e hepatiti s immuniza tion Completed 200812/09/2013 RECORDED 05/24/19 09 9:24AM BY DAYNA RIOS, NURSE VISIT Liseth regalado [facility] 6 09:16:09 Influenz a vaccine needed [id number] 06 Completed 200811/15/2013 RECORDED 10/19/19 09 10:09AM BY YUAN GORDILLO MD, ANNOTATI ON/ADDEN DUM Liseth regalado [facility] 6 09:16:08 General examinat ion of patient Completed 200811/15/2013 RECORDED 10/19/19 09 10:09AM BY YUNA GORDILLO MD, ANNOTATI ON/ADDEN DUM Liseth Hooks null, [facility] 6 09:16:09 Influenz a vaccine needed 24184468419 06 Completed 200812/08/2013 RECORDED 10/19/19 09 10:09AM BY YUAN GORDILLO MD, ANNOTATI ON/ADDEN DUM Liseth Hooks null, [facility] 6 09:16:08 General examinat ion of patient Completed 200812/08/2013 RECORDED 10/19/19 09 10:09AM BY YUAN GORDILLO MD, ANNOTATI ON/ADDEN DUM Liseth Hooks null, [facility] 6 09:16:09 Screenin g for malignan t neoplasm of colon Completed 200812/08/2013 RECORDED 10/19/19 09 10:09AM BY YUAN GORDILLO MD, ANNOTATI ON/ADDEN DUM Leslie Ervin [facility] 7 10:10:53 Influenz a vaccine needed 74337056341 06 Completed 200812/09/2013 RECORDED 10/19/19 09 10:09AM BY YUAN GORDILLO MD, ANNOTATI ON/ADDEN DUM Liseth Hooks null, [facility] 6 09:16:09 General examinat ion of patient Completed 200812/09/2013 RECORDED 10/19/19 09 10:09AM BY YUAN GORDILLO MD, ANNOTATI ON/ADDEN DUM Liseth Hooks null, [facility] 6 09:16:09 Screenin g for malignan t neoplasm of colon Completed 200812/09/2013 RECORDED 10/19/19 09 10:09AM BY YUAN GORDILLO MD, ANNOTATI ON/ADDEN DUM Leslie Ervin MA null, [facility] 7 10:10:53 Hyperlip idemia 45009095 Completed 200911/15/2013 RECORDED 09/07/19 10 1:34PM BY ELIANE RIOS MA, ANNOTATI ON/ADDEN DUM Liseth Hooks null, [facility] 6 09:16:08 Acute upper respirat ory infectio n 48523541 Completed 201211/15/2013 RECORDED 07/31/19 13 9:55AM BY KENDRICK HIGHTOWER MA, ANNOTATI ON/ADDEN DUM Leslie Ervin MA null, [facility] 7 10:11:22 Chest pain 74273266 Completed 201211/15/2013 RECORDED 07/31/19 13 9:54AM BY KENDRICK HIGHTOWER MA, ANNOTATI ON/ADDEN DUM Liseth Hooks null, [facility] 6 09:16:08 Screenin g for malignan t neoplasm of colon Completed 201211/15/2013 RECORDED 07/31/19 13 9:55AM BY KENDRICK HIGHTOWER MA, ANNOTATI ON/ADDEN DUM Leslie Ervin MA null, [facility] 7 10:10:53 Risk of exposure to communic able disease 658893394 Completed 201211/15/2013 RECORDED 07/31/19 13 9:55AM BY KENDRICK HIGHTOWER MA, ANNOTLISA ON/ADDEN DUM Liseth Hooks null, [facility] 6 09:16:08 Dysuria 08597454 Completed 201211/15/2013 RECORDED 07/31/19 13 9:55AM BY KENDRICK HIGHTOWER MA, ANNOTATI ON/ADDEN DUM Liseth Hooks null, [facility] 6 09:16:08 Enthesop athy of knee 54180469 Completed 201211/15/2013 RECORDED 07/31/19 13 9:55AM BY KENDRICK HIGHTOWER MA, ANNOTATI ON/ADDEN DUM Liseth Hooks null, [facility] 6 09:16:08 Blood in urine 19938936 Completed 201211/15/2013 RECORDED 07/31/19 13 9:54AM BY KENDRICK HIGHTOWER MA, ANNOTATI ON/ADDEN DUM Liseth Hooks null, [facility] 6 09:16:08 Malaise and fatigue 889486247 Completed 201211/15/2013 RECORDED 07/31/19 13 9:55AM BY KENDRICK HIGHTOWER MA, ANNOTATI ON/ADDEN DUM Liseth Hooks null, [facility] 6 09:16:08 Administ ration of diphther ia and tetanus vaccine Completed 201211/15/2013 RECORDED 07/31/19 13 9:55AM BY KENDRICK HIGHTOWER MA, ANNOTATI ON/ADDEN DUM Liseth Hooks null, [facility] 6 09:16:09 Disorder of skin 13883824 Completed 201211/15/2013 RECORDED 07/31/19 13 9:55AM BY KENDRICK HIGHTOWER MA, ANNOTATI ON/ADDEN DUM Liseth Hooks null, [facility] 6 09:16:08 Sprain of spinal ligament 526546114 Completed 201211/15/2013 RECORDED 07/31/19 13 9:55AM BY KENDRICK HIGHTOWER MA, ANNOTATI ON/ADDEN DUM Liseth Hooks null, [facility] 6 09:16:08 Acute upper respirat ory infectio n 61087778 Completed 201212/08/2013 RECORDED 07/31/19 13 9:55AM BY KENDRICK HIGHTOWER MA, ANNOTATI ON/ADDEN DUM Leslie Bigby WILLY null, [facility] 7 10:11:22 Chest pain 02199852 Completed 201212/08/2013 RECORDED 07/31/19 13 9:54AM BY KENDRICK HIGHTOWER MA, ANNOTATI ON/ADDEN DUM Liseth Hooks null, [facility] 6 09:16:08 Risk of exposure to communic able disease 657187865 Completed 201212/08/2013 RECORDED 07/31/19 13 9:55AM BY KENDRICK HIGHTOWER MA, JEREMIAHATI ON/ADDEN DUM Liseth Hooks null, [facility] 6 09:16:08 Dysuria 53484233 Completed 201212/08/2013 RECORDED 07/31/19 13 9:55AM BY KENDRICK HIGHTOWER MA, ANNOTATI ON/ADDEN DUM Liseth Hooks null, [facility] 6 09:16:08 Enthesop athy of knee 18804872 Completed 201212/08/2013 RECORDED 07/31/19 13 9:55AM BY KENDRICK HIGHTOWER MA, ERMA ON/ADDEN DUM Liseth Hooks null, [facility] 6 09:16:08 Blood in urine 67863811 Completed 201212/08/2013 RECORDED 07/31/19 13 9:54AM BY KENDRICK HIGHTOWER MA, ERMA ON/ADDEN DUM Liseth Hooks null, [facility] 6 09:16:08 Malaise and fatigue 238669609 Completed 201212/08/2013 RECORDED 07/31/19 13 9:55AM BY KENDRICK HIGHTOWER MA, ERMA ON/ADDEN DUM Liseth Hooks null, [facility] 6 09:16:08 Administ ration of diphther ia and tetanus vaccine Completed 201212/08/2013 RECORDED 07/31/19 13 9:55AM BY KENDRICK HIGHTOWER MA, ERMA ON/ADDEN DUM Liseth Hooks null, [facility] 6 09:16:09 Disorder of skin 52634532 Completed 201212/08/2013 RECORDED 07/31/19 13 9:55AM BY KENDRICK HIGHTOWER MA, ANNOTATI ON/ADDEN DUM Liseth Hooks null, [facility] 6 09:16:08 Adult health examinat ion Completed 201212/08/2013 RECORDED 07/31/19 13 9:54AM BY KENDRICK HIGHTOWER MA, ANNOTATI ON/ADDEN DUM Leslie Ervin MA null, [facility] 7 10:10:49 Sprain of spinal ligament 383864689 Completed 201212/08/2013 RECORDED 07/31/19 13 9:55AM BY KENDRICK HIGHTOWER MA, ANNOTATI ON/ADDEN DUM Liseth Hooks null, [facility] 6 09:16:08 Acute upper respirat ory infectio n 02907529 Completed 201212/09/2013 RECORDED 07/31/19 13 9:55AM BY KENDRICK HIGHTOWER MA, ANNOTATI ON/ADDEN DUM Leslie Ervin MA null, [facility] 7 10:11:22 Chest pain 80927873 Completed 201212/09/2013 RECORDED 07/31/19 13 9:54AM BY KENDRICK HIGHTOWER MA, ERMA ON/ADDEN DUM Liseth Jessee null, [facility] 6 09:16:08 Risk of exposure to communic able disease 280172523 Completed 201212/09/2013 RECORDED 07/31/19 13 9:55AM BY KENDRICK HIGHTOWER MA, ANNOTATI ON/ADDEN DUM Liseth Hooks null, [facility] 6 09:16:08 Dysuria 35213496 Completed 201212/09/2013 RECORDED 07/31/19 13 9:55AM BY KENDRICK HIGHTOWER MA, ANNOTATI ON/ADDEN DUM Liseth Hooks null, [facility] 6 09:16:08 Enthesop athy of knee 72884360 Completed 201212/09/2013 RECORDED 07/31/19 13 9:55AM BY KENDRICK HIGHTOWER MA, ANNOTATI ON/ADDEN DUM Liseth Hooks null, [facility] 6 09:16:08 Blood in urine 62679731 Completed 201212/09/2013 RECORDED 07/31/19 13 9:54AM BY KENDRICK HIGHTOWER MA, ANNOTATI ON/ADDEN DUM Liseth Hooks null, [facility] 6 09:16:08 Malaise and fatigue 066595243 Completed 201212/09/2013 RECORDED 07/31/19 13 9:55AM BY KENDRICK HIGHTOWER MA, JEREMIAHATI ON/ADDEN DUM Lisethakshat Hooks null, [facility] 6 09:16:08 Administ ration of diphther ia and tetanus vaccine Completed 201212/09/2013 RECORDED 07/31/19 13 9:55AM BY KENDRICK HIGHTOWER MA, ERMA ON/ADDEN DUM Liseth Hooks null, [facility] 6 09:16:09 Disorder of skin 22151661 Completed 201212/09/2013 RECORDED 07/31/19 13 9:55AM BY KENDRICK HIGHTOWER MA, JEREMIAHATI ON/ADDEN DUM Liseth Hooks null, [facility] 6 09:16:08 Adult health examinat ion Completed 201212/09/2013 RECORDED 07/31/19 13 9:54AM BY KENDRICK HIGHTOWER MA, JEREMIAHATI ON/ADDEN DUM Leslie Ervin MA null, [facility] 7 10:10:49 Sprain of spinal ligament 777994518 Completed 201212/09/2013 RECORDED 07/31/19 13 9:55AM BY KENDRICK HIGHTOWER MA, ANNOTATI ON/ADDEN DUM Liseth Hooks null, [facility] 6 09:16:08 Cellulit is of digit 65455985 Completed 201211/15/2013 IMPRESSI ON: [place]. NEW RX SENT; RECORDED 01/12/20 13 3:25PM BY KENDRICK HIGHTOWER MA, ANNOTATI ON/ADDEN DUM Liseth Hooksakshat regalado, [facility] 6 09:16:08 Cellulit is of digit 48144962 Completed 201212/08/2013 IMPRESSI ON: [place]. NEW RX SENT; RECORDED 01/12/20 13 3:25PM BY KENDRICK HIGHTOWER MA, ANNOTLISA ON/ADDEN DUM Liseth Hooks null, [facility] 6 09:16:08 Cellulit is of digit 60664086 Completed 201212/09/2013 IMPRESSI ON: [place]Y [place]. NEW RX SENT; RECORDED 01/12/20 13 3:25PM BY KENDRICK HIGHTOWER MA, ANNOTATI ON/ADDEN DUM Liseth Hooksakshat regalado, [facility] 6 09:16:08 Conjunct ivitis 4325441 Completed 201211/15/2013 RECORDED 02/02/20 13 11:08AM BY INNA BURCH MA, ANNOTATI ON/ADDEN DUM Lisethakshat regalado [facility] 6 09:16:08 Benign prostati c hyperpla kaela 228516477 Active 2012 Lisethakshat regalado [facility] 6 09:16:09 Lower urinary tract symptoms 553118277 Completed 201205/16/2016 Leslie regalado [facility] 7 10:10:45 Adult health examinat ion Completed 201211/15/2013 RECORDED 02/02/20 13 11:07AM BY INNA BURCH MA, ANNOTATI ON/ADDEN DUM Leslie regalado [facility] 7 10:10:49 Hearing loss 78550426 Completed 201211/15/2013 RECORDED 02/02/20 13 11:08AM BY INNA BURCH MA, ANNOTATI ON/ADDEN DUM Leslie regalado, [facility] 7 10:10:31 Patient status finding 800113027 Completed 201211/15/2013 RECORDED 02/02/20 13 11:07AM BY INNA BURCH MA, ANNOTATI ON/ADDEN DUM Leslie regalado, [facility] 7 10:10:25 Acute upper respirat ory infectio n 53288660 Completed 201205/16/2016 IMPRESSI ON: NORMAL EXAM, REC. SYMPTOMA TIC TX, IBUPROFE N PRN PAIN. RTC IF PERSISTE NT OR WORSENIN G SYMPTOMS .; RECORDED 02/02/20 13 3:56PM BY BK PABLO PA-C, OFFICE VISIT Leslie regalado [facility] 7 10:11:22 Conjunct ivitis 2583835 Completed 201212/08/2013 RECORDED 02/02/20 13 11:08AM BY INNA BURCH MA, ANNOTATI ON/ADDEN DUM Liseth Jessee regalado [facility] 6 09:16:08 Conjunct ivitis 2059945 Completed 201212/09/2013 RECORDED 02/02/20 13 11:08AM BY INNA BURCH MA, ANNOTATI ON/ADDEN DUM Lisethakshat regalado [facility] 6 09:16:08 Patient status finding 276913061 Completed 201305/16/2016 Leslie regalado [facility] 7 10:10:25 Depressi ve disorder 68410442 Active 2013 Leslie regalado [facility] 7 09:13:24 Urinary tract obstruct ion 9877603 Completed 201308/22/2016 Leslie regalado [facility] 7 09:13:25 Hyperlip idemia 51620000 Active 2013 Liseth regalado [facility] 6 09:16:09 Palpitat ions 29418758 Completed 201305/16/2016 Leslie regalado [facility] 7 10:11:12 Sciatica 14073583 Completed 201305/16/2016 STORY: RIGHT LEG PAIN/SAMANTHA ERABLE.; RECORDED 11/15/19 3:03PM BY INNA BURCH MA, OFFICE VISIT Leslie regalado [facility] 7 10:10:28 Vitamin D deficien cy 37070209 Active 2013 Liseth regalado [facility] 6 09:16:09 Screenin g for malignan t neoplasm of colon Completed 201305/16/2016 Leslie regalado [facility] 7 10:10:53 Adult health examinat ion Completed 201305/16/2016 Leslie regalado [facility] 7 10:10:49 Hearing loss 77899784 Completed 201305/16/2016 IMPRESSI ON: AUDIOMET RY ABNORMAL , HE WILL SELF REFER TO ENT; RECORDED 11/15/19 14 11:01PM BY MATTHEW LOVE, OFFICE VISIT Leslie regalado [facility] 7 10:10:31 Skin sensatio n disturba kye 88252546 Completed 201305/16/2016 Leslie regalado [facility] 7 10:11:16 Administ ration of diphther ia, pertussi s, and tetanus vaccine Completed 201305/16/2016 Leslie regalado [facility] 7 10:11:06 Ganglion and cyst of synovium , tendon and bursa Active 2013 Leslie Ervin MA [facility] 7 09:13:16 Primary erectile dysfunct ion 598092450 Active 2016 Damian JimMaiakenna blum [facility] 7 09:06:12 Problem Notes None recorded. Procedures Surgical History Date Name Laterality Status Provider Name and Address Organization Details Recorded Time 9 excision of lipoma of back completed Gloria Money [facility] 04/22/2019 10:32:24 5 Colonoscopy completed Randal Millard PA-C [address] [address], [place], [address], [facility] 05/31/2018 09:23:54 2 Prostate Surgery completed Lesliekristi Lorenzoisidro AGUILERA [facility] 05/16/2016 10:09:36 0 Cancer Surgery completed Leslie Ervin MA [facility] 05/16/2016 10:09:36 3 Orthopedic Surgery completed Lesliekristi Ervin MA [facility] 05/16/2016 10:09:36 Imaging Results None recorded. Procedure Notes None recorded. Medical Equipment None Reported. Allergies No known drug allergies Medications Name Sig Start Date Stop Date Status Note LastModified by Organization Details LastModified Time amphetami ne/dextro amphetami ne 10 mg tabs 05/16 completed Not Available Not Available Not Available bupropion hcl xl 300 mg tb24 05/16 completed Not Available Not Available Not Available ofloxacin 0.3 % soln active Not Available Not Available Not Available bupropion hcl xl 150 mg tb24 05/16 completed Not Available Not Available Not Available lamotrigi ne 200 mg tabs 05/16 completed Not Available Not Available Not Available lamotrigi ne 200 mg tablet TK 1 T PO BID active Not Available Not Available No t Available ibuprofen 800 mg tablet active Not Available Not Available Not Available methylphe nidate 5 mg tablet NEEDED active RECORDED 11/15/19 14 3:33PM BY MATTHEW LOVE, ANNOTATI ON/ADDEN DUM; Not Available Not Available Not Available dextroamp hetamine- amphetami ne 10 mg tablet Take 30 mg every day by oral route. 01/28 completed Not Available Not Available Not Available sildenafi l 100 mg tablet TAKE 1 TABLET BY MOUTH NEEDED active Not Available Not Available No t Available lamotrigi ne 25 mg tablet active Not Available Not Available Not Available ofloxacin 0.3 % ear drops INSTILL 10 DROPS (1.5 MG) INTO AFFECTED EAR BY OTIC ROUTE 2 TIMES PER DAY X 7-10 Days 2014 active Not Available Not Available Not Avai lable gentamici n 0.3 % eye drops TID 04/14 completed RECORDED 06/01/19 08 2:49PM BY DENNIS JADE, MEDICATI ON AUTO-KARRI CTIVATIO N; Not Available Not Available Not Available cephalexi n 500 mg capsule THREE TIMES DAILY active Not Available Not Available No t Available dextroamp hetamine- amphetami ne 20 mg tablet TK 1 T PO BID active Not Available Not Available No t Available polymyxin B sulfate 10,000 unit-trim ethoprim 1 mg/mL eye drops THREE TIMES DAILY 11/13 completed RECORDED 11/14/19 14 10:21PM BY MATTHEW LOVE, ANNOTATI ON/ADDEN DUM; Not Available Not Available Not Available cefadroxi l 1 gram tablet TWO TIMES DAILY 08/06 completed RECORDED 01/09/20 13 11:58AM BY MATTHEW LOVE, MEDICATI ON AUTO-KARRI CTIVATIO N; Not Available Not Available Not Available ergocalci ferol (vitamin D2) 1,250 mcg (50,000 unit) capsule DIRECTED 04/21 completed RECORDED 04/21/20 09 1:21PM BY DAMIAN MESA MD, REFILL REQUEST; THIS ORDER DISCONTI NUED PER [facility]. Not Available Not Available Not Available lovastati n 20 mg tablet TAKE 1 TABLET BY MOUTH EVERY DAY IN THE EVENING active Not Available Not Available No t Available Amphetami ne Salt Combo 10 mg tablet active Not Available Not Available No t Available Bactrim DS 800 mg-160 mg tablet Take 1 tablet every 12 hours by oral route for 7 days. 05/31 completed Not Available Not Available Not Available Vitamin D 50,000 unit capsule ONCE A WEEK 09/06 completed RECORDED 09/07/19 11 8:44AM BY ERMA WEBBER ON/JENSEN DUM;THIS ORDER DISCONTI NUED PER [facility]-SP[facility] N. Not Available Not Available Not Available escitalop hernán 10 mg tablet QD 09/10 completed RECORDED 09/11/19 11 8:36AM BY ELIANE RIOS MA, OFFICE VISIT; Not Available Not Available Not Available bupropion HCl XL 300 mg 24 hr tablet, extended release active Not Available Not Available Not Available bupropion HCl XL 150 mg 24 hr tablet, extended release QD active Not Available Not Available Not Available tadalafil 20 mg tablet Take 1 tablet every day by oral route. active Not Available Not Available No t Available bupropion HCl XL 450 mg 24 hr tablet, extended release Take 450 mg every day by oral route. 04/09 completed Not Available Not Available Not Available Shingrix (PF) 50 mcg/0.5 mL intramusc ular suspensio n, kit active Not Available Not Available Not Available Afluria Qd 2018- (36 mos up)(PF)60 mcg (15 mcg x4)/0.5 mL IM syringe active Not Available Not Available Not Available Vitals Date Recorded Body height Body mass index (BMI) Body weight Oxygen saturation Oxygen saturation in Arterial blood by Pulse oximetry Heart rate Body temperature Provider Name and Address Organization Details Last Updated DateTime 8 182.88 cm 23.9 kg/m2 98312.9 6 g 99 % 99 % 72 /min 98.3 [degF] Leslie Ervin [facility] [place] 8 15:59:46 Date Recorded Body height Body mass index (BMI) Body weight Oxygen saturation Oxygen saturation in Arterial blood by Pulse oximetry Heart rate Body temperature Systolic And Diastolic Provider Name and Address Organization Details Last Updated DateTime 9 182.88 cm 24.4 kg/m2 41159.6 3 g 98 % 98 % 75 /min 97.1 [degF] 107/67 mm[Hg] Leslie Ervin [facility] 9 08:51:16 Date Recorded Body height Body weight Body mass index (BMI) Oxygen saturation Oxygen saturation in Arterial blood by Pulse oximetry Heart rate Body temperature Provider Name and Address Organization Details Last Updated DateTime 7 182.88 cm 52981.9 8 g 14.6 kg/m2 98 % 98 % 73 /min 98.1 [degF] Leslie Ervin [facility] 7 14:25:01 Date Recorded Body height Body mass index (BMI) Body weight Oxygen saturation Oxygen saturation in Arterial blood by Pulse oximetry Heart rate Body temperature Systolic And Diastolic Provider Name and Address Organization Details Last Updated DateTime 7 182.88 cm 23.4 kg/m2 49211.3 2 g 98 % 98 % 72 /min 97.4 [degF] 110/64 mm[Hg] [facility] 7 09:46:31 Date Recorded Body height Body mass index (BMI) Body weight Heart rate Body temperature Oxygen saturation Oxygen saturation in Arterial blood by Pulse oximetry Systolic And Diastolic Provider Name and Address Organization Details Last Updated DateTime 8 182.88 cm 24.4 kg/m2 71478.6 3 g 55 /min 97.1 [degF] 98 % 98 % 103/57 mm[Hg] Leny Herrera MA [facility] 8 09:15:56 Social History Question Answer Notes LastModified by Organizat ion Details LastModified Time Tobacco Smoking Status Never Smoker WILLY Alfredo [facility] 09/26/2014 16:35:57 Do You Have An Advance Directive? Yes Information not available 05/16/2016 Is Blood Transfusion Acceptable In An Emergency? Yes Information not available 11/16/2014 What Is Your Level Of Caffeine Consumption? Moderate Coffee Information not available 11/16/2014 What Type Of Diet Are You Following? VEGETARIAN Information not available 11/16/2014 Which Illicit Or Recreational Drugs Have You Used? N/A Information not available 11/16/2014 Are There Any Guns Present In Your Home? No Information not available 11/16/2014 Live Alone Or With Others? With Others Family/ Lynne Pérez-14 ( Yuliana Age 15 Foster Child Currently Living With Family-2018) Information not available 11/16/2014 Do You Take Precautions To Prevent Distracted Driving? Yes Information not available 05/16/2016 How Often Do You Need To Have Someone Help You When You Read Instructions, Pamphlets, Or Other Written Material From Your Doctor Or Pharmacy? Never Information not available 05/16/2016 Have You Served In The ? No Information not available 05/16/2016 What Was The Date Of Your Most Recent Tobacco Screening? 05/31/2018 Information not available 11/25/2018 How Many Children Do You Have? 1 Information not available 11/16/2014 Do You Use Protection During Sex? No Information not available 05/16/2016 Seat Belts Used Routinely Yes Information not available 11/16/2014 Are You Sexually Active? Yes Information not available 05/16/2016 Smoke Alarm In Home Yes Information not available 05/16/2016 Are You Passively Exposed To Smoke? No Information not available 11/16/2014 How Much Tobacco Do You Smoke? No Information not available 05/16/2016 Do You Use Sunscreen Routinely? Yes Information not available 11/16/2014 Sex: Unknown Functional Status Question Answer Note LastModified by Organizat ion Details LastModified Time What is your level of alcohol consumption? Occasional Information not available 11/16/2014 Are you currently employed? Yes Information not available 11/16/2014 Are you able to care for yourself? 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 Moderate stays active Information not available 11/16/2014 Mental Status None recorded. Family History Relationship Description Onset Age of this Age Resolved Age Notes LastModified by Organization Details LastModified Time Mother Scoliosis deformity of spine 90 [email or web address] Not available 2018 08:42:14 Mother Depressive disorder 46 [email or web address] Not available 2016 10:09:00 Father Coronary arterioscler osis abigby Not available 2018 08:42:14 Father Myocardial infarction 47 [email or web address] Not available 05/31 08:42:14 Father Hypercholest erolemia 42 [email or web address] Not available 2016 10:09:00 Father Heart disease 42 47 [email or web address] Not available 2016 10:09:00 Father Hypertensive disorder 42 [email or web address] Not available 2016 10:09:00 Paternal Grandfather Coronary arterioscler osis 56 [email or web address] Not available 2018 08:42:14 Paternal Grandfather Heart disease abigby Not available 2016 10:09:00 Sister Carcinoma in situ of breast 54 [email or web address] Not available 2018 08:42:14 Sister Depressive disorder 54 [email or web address] Not available 2016 10:09:00 Sister Malignant tumor of breast 54 [email or web address] Not available 2016 10:09:00 Brother Foot-drop 64 periph neuro abigby Not available 05/31/2018 08:42:14 Medical History Condition Response Gout N Other N Kidney Stones N Blood Diseases N Hyperthyroidism N Breast Cancer N COPD N Depression Y Lung Disease N Hypothyroidism N Defects or Inherited Disease N Anesthesia Complications N Headaches/Migraines N Anxiety Disorder N Varicose Veins N Obesity N Vision or Eye Problems N Arthritis N Head Injury/Concussion N Polyps N Infertility N Congenital Anomalies N Acid Reflux (GERD) N Cancer N Stroke N ADHD N Endometriosis N High Cholesterol Y Liver Disease N Fibromyalgia N Kidney Disease N Heart Problems N Ear or Hearing Problems N Hospitalizations N Thyroid Problems N GI Problems N Acne N Eating Disorder N Skin Problems N Anemia N Constipation N Bladder Problems N Mental Illness N Diabetes N Ovarian Cancer N Blood Transfusions N Seizures/Epilepsy N Tuberculosis N AIDS/HIV N Congestive Heart Failure (CHF) N Eczema N Abuse/Domestic Violence N Diverticulitis N Asthma N Allergies N Reflux/GERD N Hepatitis N Pulmonary Embolism N Hypertension N Chicken Pox N Autism Spectrum Disorder (ASD) N Osteoporosis N Immunizations Vaccine Type Date Status Note Provider Nam e and Address Organization Details Recorded Time Tdap 4 completed Not Available [facility] 12/15/2013 08:31:42 Td (adult) 6 completed Liseth Hooks null, [facility] 07/31/2014 11:00:07 zoster live 6 completed Liseth regalado [facility] 10/23/2015 09:16:09 Influenza, split virus, quadrivalent, preservative 8 completed [place] Alfredo, [facility] 04/09/2018 09:14:42 Influenza, split virus, trivalent, preservative 7 completed Not Available [facility] 11/15/2013 13:23:27 Hep B, adult 8 completed Not Available [facility] 11/15/2013 13:23:27 Hep B, adult 8 completed Not Available [facility] 11/15/2013 13:23:27 Hep B, adult 9 completed Not Available [facility] 11/15/2013 13:23:27 Novel [id number] , all formulations 0 completed Not Available [facility] 11/15/2013 13:23:27 Past Encounters Encounter ID Performer Location Encounter Start Date Encounter Closed Date Diagnosis/Indication Diagnosis SNOMED-CT Code Diagnosis ICD10 Code Diagnosis Note [id number] auto[facility]Comm erce [address] [facility] [place] [address] 12/18/2006 00:00:00 [id number] autoEComm erce [address] [facility] [place] [address] 03/18/2007 00:00:00 [id number] autoEComm erce [address] [facility] [place] [address] 04/07/2007 00:00:00 [id number] autoEComm erce [address] [facility] [place] [address] 08/07/2008 00:00:00 [id number] autoEComm erce [address] [facility] [place] [address] 10/18/2008 00:00:00 [id number] autoEComm erce [address] [facility] [place] [address] 09/06/2009 00:00:00 [id number] autoEComm erce [address] [facility] [place] [address] 09/10/2010 00:00:00 [id number] autoEComm erce [address]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
--- NOTE | 2024-11-17 08:47 | A.OFFVIS_ITS ---
Vital Signs 11/17/24 08:59 Height 6 ft Weight 180 lb 1.883 oz BMI 24.4 BP 92/60 Blood Pressure Location Lt brachial Pulse 78 Pulse Source Pulse Oximeter Pulse Oximetry (%) 98 Oxygen Delivery Method Room Air Intake Visit Reasons: JACOB+ Intake Note: Patient presents for JACOB+ follow up. Allergies No Known Allergies Allergy (Verified 11/17/24 08:50) HPI Comments Details: Patient is a 69 y.o. male with hyperlipidemia, Parkinson's disease, anxiety/depression, CIDP, restless legs syndrome and a positive JACOB here today for follow up Interval History: Patient last seen 01/07/22 - Evaluating positive JACOB - No evidence of an autoimmune disease at that time Returns today, - Continues to have neuropathic symptoms - Sees neurology and neuromuscular specialty at [facility] in [place] - Current working diagnosis is CIDP, but according to patient he does not fit the full clinical criteria - Repeat blood work again shows positive JACOB, now 1:80 Denies rashes, photosensitivity, alopecia, oral/nasal ulcers, sicca symptoms, lymphadenopathy, chest pain/shortness of breath, inflammatory type joint pain, foamy urine, lower extremity edema, muscle weakness, Raynaud's Also denies history of seizure, CVA, psychosis, history of kidney problems, history of cytopenias, history of VTE including PE or DVTs Rheumatologic History: Initial history: The patient is seen for evaluation of a positive JACOB. The test was drawn because the patient apparently has been diagnosed with CIDP. He has been occasionally falling over the last few years. There has been intermittent numbness in the feet. He says he is also thought to have Parkinson's disease and possibly multisystem failure. He recent had EMG's done that seem to indicate a severe peripheral neuropathy. 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 He has been running about 3 miles every other day with longer runs on weekends. He had some right knee pain recently and has not run in about a week. There has also been occasio nal pain in the left lateral foot. He thinks this is because of pressure over that area. He does not have any skin rashes although has a history of a basal cell carcinoma removed from the left ear. He has occasional dry eyes for which he uses [id number]-[id number] ocular lubricants. Last year he had lost his sense of smell for about 6 months but it came back. There is no sun sensitivity or Raynaud's symptoms. Current Rheumatology Medication(s): [facility] Medical History Cognitive disorder Back pain Anxiety Depression Hyperlipidemia Non-melanoma skin cancer Surgical History H/O cervical spine surgery History of ear surgery Family History Father Myocardial infarction Family/Other Cancer Family/Other Breast cancer Mother Skin cancer Social History Household Members: Spouse Housing: House Alcohol intake: current Alcohol intake frequency: holidays/special occasions only Alcohol type: beer and hard liquor Patient Tobacco Use Status: Never used Tobacco e-Cigarette/Vaping Use: Never Used service: No Current occupational status: employed 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 Review of Systems Const Details: Review of Systems Constitutional: Denies fever, chills, weight loss ENT: Denies vision changes, eye pain or eye redness, dental caries, dry mouth GI: Denies nausea, vomiting, diarrhea, abdominal pain, change in BM Pulm: Denies SOB, REID, hemoptysis, wheezing Cards: Denies chest pain, palpitations Skin: Denies Raynaud's, rash, nail changes, photosensitivity, NATUROPATHIC DOCTOR: Denies headaches, weakness, paresthesias, recurrent falls MSK: as per HPI All other systems reviewed and are unremarkable except noted above Physical Exam Vital Signs: Last Vital Signs Pulse 78 11/17/24 08:59 BP 92/60 11/17/24 08:59 Pulse Ox 98 11/17/24 08:59 Oxygen Delivery Method Room Air 11/17/24 08:59 BMI result Body Mass Index 24.4 Vital signs reviewed Physical Examination CONSTITUITIONAL Patient alert and cooperative. Well appearing and in no apparent painful distress HEENT Conjunctiva and sclera clear. No lymphadenopathy. CHEST/RESPIRATORY SYSTEM Normal respiratory effort and able to speak in complete sentences. Clear to auscultation bilaterally. No crackles, rales, rhonchi, wheezes heard. CARDIAC SYSTEM Regular rate and rhythm. S1 and S2 heard no murmurs. Radial pulses intact bilaterally MSK Hands * Right Hand: Able to make a fist. No swelling or tenderness to palpation of these joints. * Left Hand: Able to make a fist. No swelling or tenderness to palpation of thes e joints. * OA changes to hands noted Wrists * Right Wrist: Full ROM. 70 degrees of wrist flexion, 80 degrees of wrist extension. No swelling or TTP * Left Wrist: Full ROM. 70 degrees of wrist flexion, 80 degrees of wrist extension. No swelling or TTP Elbows * Right Elbow: Full ROM. No swelling or TTP. No TTP of the medial and lateral epicondyles * Left Elbow: Full ROM. No swelling or TTP. No TTP of the medial and lateral epicondyles Shoulders * Right shoulder: Full ROM. No swelling noted. No TTP of the AC joint, subacromial bursa or posterior shoulder * Left shoulder: Full ROM. No swelling noted. No TTP of the AC joint, subacromial bursa or posterior shoulder Knees * Right knee: Full ROM. No swelling noted. No TTP of the knee joint lie or pes anserine bursa * Left knee: Full ROM. No swelling noted. No TTP of the knee joint lie or pes anserine bursa. Ankles * Right ankle: Good ankle dorsiflexion and plantar flexion. No swelling. No TTP of the ankle joint * Left ankle: Good ankle dorsiflexion and plantar flexion. No swelling. No TTP of the ankle joint Feet * Right foot: Negative squeeze test * Left foot: Negative squeeze test Tender points? * No tenderness to palpation of the bilateral trapezius, supraspinatus, anterior costochondral junctions, bilateral suboccipital muscle insertions SKIN No rashes Results Reviewed Results Reviewed: Laboratory Tests 11/17/24 09:44 WBC 5.1 RBC 4.58 L Hgb 14.0 Hct 40.9 L Plt Count 194 ESR 5 Sodium 145 Potassium 4.3 Chloride 109 H Carbon Dioxide 28 BUN 14 Creatinine 0.97 AST 20 ALT 30 Alkaline Phosphatase 77 C-Reactive Protein < 0.10 Laboratory Tests 09/09/21 01/07/22 11:41 12:35 Angiotensin Convert Enz 21.4 JACOB Screen POSITIVE A JACOB Titer 1:40 H JACOB Pattern Nuclear, Homogeneous A Sm (Hernandez) Antibody <1.0 NEG SM/ENGINEERING DESIGN SUPERVISOR IgG Antibody <1.0 NEG Double Strand DNA Ab <1 Assessment & Plan Assessment & Plan (1) JACOB positive: Code(s): R76.8 - Other specified abnormal immunological findings in serum Category: Medical Plan: #Positive JACOB in the setting of neuropathy Patient is a 69-year-old male with lower extremity neuropathy and a positive JACOB here today for re-evaluation. His review of systems is not consistent with an underlying connective tissue disease with no history of inflammatory arthritis, photosensitivity, oral/nasal ulcers, alopecia or any other concerning connective tissue disease type symptoms. You can have neuropathy in the setting of a diagnosis of Sjogren's although patient denies dry eyes and dry mouth. We will given the concern about an underlying autoimmune phenomenon we will check Sjogren's antibodies, vasculitis antibodies, scleroderma antibodies and complement. If he does have positive SSA/SSB the next step would be to get a sural nerve biopsy to confirm diagnosis of vasculitis secondary to Sjogren's or any other vasculitic or autoimmune disease. Very low suspicion for lupus in his patient. It would be unusual for patient to have peripheral neuropathy in the setting of lupus without any other manifesting symptoms. Discussed with patient that having a low titer JACOB is normal and would not necessarily explain the cause of his neuropathy. We will follow up with patient after we receive the results. Plan I spent 46 minutes reviewing the record and labs, taking a history, examining the patient, discussing the treatment plan, ordering diagnostic work up and documenting in the medical record Orders: Orders Complement C3 Today R76.8 - Other specified abnormal immunological findings in serum Complement C4 Today R76.8 - Other specified abnormal immunological findings in serum Scleroderma 70 Antibody Today R76.8 - Other specified abnormal immunological findings in serum Sjogren's Antibodies Today R76.8 - Other specified abnormal immunological findings in serum Comprehensive Met. Panel Today R76.8 - Other specified abnormal immunological findings in serum ANCA Vasculitides Today R76.8 - Other specified abnormal immunological findings in serum Sm Sm/ENGINEERING DESIGN SUPERVISOR Antibodies Today R76.8 - Other specified abnormal immunological f indings in serum Anti DNA DS Antibody Today R76.8 - Other specified abnormal immunological findings in serum Complete Blood Count Auto Diff Today R76.8 - Other specified abnormal immunological findings in serum C Reactive Protein Today R76.8 - Other specified abnormal immunological findings in serum Erythrocyte Sedimentation Rate Today R76.8 - Other specified abnormal immunological findings in serum Coding Level of Care Code New Pt Level 4 (12371) Complex EM visit Add On G2211 Diagnoses JACOB positive R76.8
[2024-11-17 08:59] VITALS: BP 92/60; PULSE 78; O2SAT 98; BMI 24.4
== END 2024-11-17 09:59 | disposition home or self-care (01) ==
PROVIDERS: PCP Family Medicine; Visit Provider Student in an Organized Health Care Education/Training Program
DX: R76.8 Other specified abnormal immunological findings in serum (principal)
CPT/HCPCS: 99204; G2211

== ENCOUNTER 2024-11-17 08:35 | Outpatient (REF) | payer MEDICARE, SELFPAY ==
[2024-11-17 09:46] LABS: MANUAL DIFF FLAG NO
[2024-11-17 10:41] LABS: Hematocrit 40.9 % (42.0-52.0); Hemoglobin 14.0 g/dl (14.0-18.0); Imm Gran Abs Auto 0.01 X10*3/uL (0.00-0.03); Imm Gran Pct Auto 0.2 % (0.0-0.4); Lymphocytes Absolute Auto 1.8 X10*3/uL (1.2-4.9); Mean Corpuscular HGB Conc 34.2 g/dl (31.0-36.0); Mean Corpuscular Hemoglobin 30.6 pg (27.0-33.0); Mean Corpuscular Volume 89.3 fL (80.0-98.0); NRBC Abs Auto 0.000 X10*3/uL (0.0-0.012); NRBC Pct Auto 0.0 /100WBC (0.0-0.2); Platelet Count 194 X10*3/uL (160-400); Red Blood Count 4.58 X10*6/uL (4.60-5.80); White Blood Count 5.1 X10*3/uL (4.8-10.8)
[2024-11-17 11:39] LABS: Alanine Aminotransferase 30 U/L (0-40); Albumin Level 4.5 g/dL (3.5-5.0); Alkaline Phosphatase 77 U/L (39-117); Anion Gap 12 (12-20); Aspartate Amino Transferase 20 U/L (5-37); Blood Urea Nitrogen 14 mg/dL (9-16); Calcium 9.1 mg/dL (8.4-10.2); Carbon Dioxide 28 mmol/L (22-29); Chloride 109 mmol/L (96-108); Estimated Glomerular Filt Rate > 60; Potassium 4.3 mmol/L (3.3-5.1); Sodium 145 mmol/L (135-145); Total Protein 7.0 g/dL (6.5-8.0)
[2024-11-23 13:33] LABS: Antibody to SS-A Antigen <1.0 NEG AI (<1.0 NEG); Antibody to SS-B Antigen <1.0 NEG AI (<1.0 NEG); Proteinase 3 PR3 Antibodies <1.0 AI; SM/Ribonucleoprotein Ab <1.0 NEG AI (<1.0 NEG); Smith Protein <1.0 NEG AI (<1.0 NEG)
== END 2024-11-17 08:36 | disposition home or self-care (01) ==
LOC: HO.LAB 08:35
PROVIDERS: PCP Family Medicine; Visit Provider Student in an Organized Health Care Education/Training Program
DX: R76.8 Other specified abnormal immunological findings in serum (principal)
CPT/HCPCS: 36415; 80053; 85025; 85652; 86021; 86140; 86160; 86225; 86235; 99202

== ENCOUNTER 2025-01-14 06:06 | Emergency (ER) | payer MEDICARE, SELFPAY ==
--- OUTSIDE RECORDS SUMMARY | 2025-01-12 10:40 | XMS_ITS | Encounter Summary ---
Author Organization [facility] Address [address] [facility] [address] [address] Phone Care Team Providers Care Oyster Farmer Name Role Phone Khadra Romo MD Primary Care Provider [phone] John Chopra MD Unavailable [phone] Lenny Pendleton MD Unavailable Encounter Details Date Type Department Care Team (Latest Contact Info) Description 01/12/2025 10:40 AM EDT Telemedicine [facility] Primary [facility] [address] [facility] [address] [place] [address] Khadra Romo MD 15 [facility] 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 It is intended primarily as jydo-ir-hfra communication. It is written in medical language [...] Description 01/18/2025 1:30 PM EDT Office Visit [facility] 8 [place] [address] Analia Acuña, FELIZ [address] [address] [email or web address] Baxter, PT 8 [place] [address] 03/01/2025 Procedure Pass [facility] Endoscopy Admitting Dept Virtual Department [address] [place] [address] 03/01/2025 9:30 AM EDT Hospital Encounter [facility] Endoscopy Admitting Dept Virtual Department [address] [place] [address] Shai Ayon MD [address] [place] [address] 03/01/2025 9:30 AM EDT - 03/01/2025 10:00 AM EDT Surgery [facility] Endoscopy Admitting Dept Virtual Department 30 [place] [address] Shai Ayon MD 10 [facility] 2 [place] [address] COLONOSCOPY 04/10/2025 11:00 AM EST Office [place] [facility] [place] Neuromuscular [place] [address] [facility], [address] [place] [address] Lenny Pendleton MD [address] [facility] [address] [place] [address] [email or web address] 06/09/2025 1:00 PM EST Office [place] [facility] [place] of Neurology [address] [facility], 8th Floor, [address] [place] [address] John Chopra MD 55 [place] [address] [email or web address] 07/21/2025 8:40 AM EDT Office [facility] Primary Care [address] [facility] [address] [place] [address] Khadra Romo MD 15 [facility] [address] [place] [address] 08/25/2025 11:00 AM EDT Office [place] [facility] [place] 52 [facility], [address] [place] [address] Clementine Brower MD [address] [place] [address] [email or web address] Scheduled Orders Name Type Priority Associated Diagnoses [...] documented as of this encounter Care Teams Oyster Farmer Relationship Specialty Start Date End Date Khadra Romo MD [address] [address] [email or web address] PCP - General Family Medicine 06/12/21 John Chopra MD 55 [place] [address] [email or web address] Neurology 06/17/23 Rai Pendleton-Alonzo Zelaya MD 165 [facility] 820 [place] [address] [email or web address] Neurology 06/17/23 documented as of this encounter Additional Source Comments The information contained in this document represents components of the legal health record. It is not the complete legal health record.[facility]
--- NOTE | ~2025-01-14 | XR_ITS ---
CLINICAL HISTORY: cp sob 2 view chest x-ray Comparison: None provided Findings: Nodular opacities are seen in the lower lung zones symmetrically likely representing nipple shadows. The lungs are otherwise clear. Normal size heart. No acute fracture. IMPRESSION: 1. No acute findings. 2. Likely nipple shadows. Please repeat with nipple markers. This document has been electronically signed by: Lavell Gallegos MD on 01/14/2025 07:15:57
--- NOTE | ~2025-01-14 | XR_ITS ---
CLINICAL HISTORY: ?nipple shadows --- Additional Notes or Special Instructions: please repeat CXR and place nipple markers 1 view chest x-ray Comparison: 01/14/2025 Findings: Study is repeated with nipple markers. No lung nodules are seen. No consolidation or effusion. Normal size heart. No acute fracture. IMPRESSION: 1. No acute findings. No lung nodules noted. This document has been electronically signed by: Lavell Gallegos MD on 01/14/2025 12:56:53
--- NOTE | 2025-01-14 06:10 | ECG_ITS ---
Test Reason : CHEST PAIN Blood Pressure : */* mmHG Vent. Rate : 71 BPM Atrial Rate : 71 BPM P-R Int : 174 ms QRS Dur : 86 ms QT Int : 382 ms P-R-T Axes : 71 53 52 degrees QTcB Int : 415 ms Sinus rhythm with marked sinus arrhythmia Possible Acute pericarditis Abnormal ECG When compared with ECG of 07-Jan-2022 12:09, Premature ventricular complexes are no longer Present ST elevation now present in Inferior leads ST elevation now present in Anterolateral leads Referred By: Generic ED Physician Electronically Signed By: ARMANDO ANDREA MD
[2025-01-14 06:14] VITALS: BP 136/61; PULSE 70; RESP 18; TEMP 36.7; O2SAT 98; BMI 24.2
--- OUTSIDE RECORDS SUMMARY | 2025-01-14 06:30 | XMS_ITS | Encounter Summary ---
Author Organization [facility] Address [address] [facility] [address] [place] [address] Phone Care Team Providers Care Clinical Implementation Specialist Name Role Phone Khadra Romo MD Primary Care Provider [phone] John Chopra MD Unavailable [phone] Lenny Pendleton MD Unavailable Encounter Details Date Type Department Care Team (Late st Contact Info) Description 01/21/2024 Transcribe Orders [facility] Specimen Processing 30 [place] [address] Khadra Romo MD 15 [facility] [address] [place] [address] Social History Tobacco Use Types Packs/Day Years Used Date Smoking Tobacco: Never Smokeless Tobacco: Never Alcohol Use Standard Drinks/Week Comments Yes 0 (1 standard drink = 0.6 oz pure alcohol) only at special events/socially Child or Family Care Answer Date Record ed Do you have problems with on e of the following making it difficult for you to work, study, or receive health care? No 06/17/2023 Education Answer Date Recorded Are you interested in help w ith more adult education (for example, completing high school, GED, job training, learning the Austrian language, technical skills, or developing parenting skills)? No 06/15/2022 Food Answer Date Recorded Within the past 6 months we worried whether our food would run out before we got money to buy more. Never True 06/17/2023 Within the past 6 months the food we bought just didn't last and we didn't have enough money to get more. Never True Residential Stability Answer Date Recor ded What is your housing situation today? I have moise sing 06/17/2023 How many times have you move d in the past 12 months? Zero (I did not move) 06/17/2023 Paying for Meds Answer Date Recorded Do you have trouble paying for medicines? No 06/17/2023 Paying Utility Bills Answer Date Record ed Do you have trouble paying your heating or elect ricity bill? No 06/17/2023 Transportation Answer Date Recorded Has the lack of transportati on kept you from medical appointments or from getting medications? No 06/15/2022 Unemployment Answer Date Recorded Are you currently unemployed or working on a part-time or temporary basis, and looking for work? No 06/15/2022 Digital Access Answer Date Recorded No 06/17/2023 Yes 06/17/2023 Do you have reliable internet access at home? Ye s 06/17/2023 Do you have a device (e.g., phone, tablet, computer) with a working camera? Yes 06/17/2023 Intimate Partner Violence Answer Date R ecorded Are you denied basic needs s uch as food, clothing, or medical care? No 06/17/2023 In the past 12 months have y ou been in a relationship with a person who hurts, threatens, or tries to control you? No 06/17/2023 Are you denied basic needs s uch as food, clothing, or medical care? No 06/17/2023 In the past 12 months have y ou been in a relationship with a person who hurts, threatens, or tries to control you? No 06/17/2023 Sex and Gender Information Value Date Recorded Sex Assigned at Male 06/12/2021 8:00 AM EST Legal Sex Male 11:53 AM EDT Gender Identity Male 06/12/2021 8:00 AM EST Sexual Orientation Bisexual 06/12/2021 8: 00 AM EST documented as of this encounter Plan of Treatment Upcoming Encounters Date Type Department Care Team (Late st Contact Info) Description 01/18/2025 1:30 PM EDT Office Visit [facility] 8 [place] [address] Analia Acuña, BISCUIT MAKER [address] [address] [email or web address] Ariadne Greene, PT 8 [place] [address] 03/01/2025 Procedure Pass [facility] Endoscopy Admitting Dept Virtual Department [address] [place] [address] 03/01/2025 9:30 AM EDT Hospital Encounter [facility] Endoscopy Admitting Dept Virtual Department [address] [place] [address] Shai Ayon MD [address] [address] 03/01/2025 9:30 AM EDT - 03/01/2025 10:00 AM EDT Surgery [facility] Endoscopy Admitting Dept Virtual Department [address] [place] [address] Shai Ayon MD [address] [address] COLONOSCOPY 04/10/2025 11:00 AM EST Office Visit [facility] Neurology Neuromuscular [address], [address] [place] [address] Lenny Pendleton MD [address] [place] [address] 820 [place] [address] [email or web address] 06/09/2025 1:00 PM EST Office Visit [facility] Department of Neurology [address] [facility], 8th Floor, [address] [place] [address] John Chopra MD 55 [place] [address] [email or web address] 07/21/2025 8:40 AM EDT Office Visit [facility] [place] [facility] 15 [facility] [address] [place] [address] Khadra Romo MD 15 [facility] [address] [place] [address] [email or web address] 08/25/2025 11:00 AM EDT Office Visit [facility] Cardiology [facility] [address] [facility], [address] [place] [address] Clementine Brower MD [address] [place] [address] [email or web address] Scheduled Procedures Name Priority Associated Diagnoses Date/Ti la COLONOSCOPY Screen for colon cancer 03/01/2025 9:30 AM EDT documented as of this encounter Visit Diagnoses Not on filedocumented in this encounter Additional Health Concerns Assessment Noted Time PHQ-9 Depression Total Score: 12 024 3:46 PM EST PHQ-2 Depression Total Score: 4 06/23/19 24 11:49 PM EST documented as of this encounter Care Teams Clinical Implementation Specialist Relationship Specialty Start Date End Date Khadra Romo MD 15 [facility] [address] [place] [address] [email or web address] PCP - General Family Medicine 06/12/21 John Chopra MD [address] [place] [address] [email or web address] Neurology 2/14/24 Lenny Pendleton MD [address] [place], [place] [address] [place] [address] [email or web address] Neurology 06/17/23 documented as of this encounter Additional Source Comments The information contained in this document represents components of the legal health record. It is not the complete legal health record.[facility]
--- OUTSIDE RECORDS SUMMARY | 2025-01-14 06:30 | XMS_ITS | Clinical Summary ---
Author Organization [facility] Address [address] [address] Phone Care Team Providers Care Manager Insurance Name Role Phone Khadra Romo MD Primary Care Provider [phone] John Chopra MD Unavailable [phone] Lenny Pendleton MD Unavailable Allergies No known active allergies Medications lamoTRIgine (LAMICTAL) 200 MG IMMEDIATE release tablet Take 200 mg by mouth. 300 mg in the morning and 200 mg bedtime 5 Active sildenafiL (VIAGRA) 100 mg tablet Take 1 tablet (100 mg total) by mouth daily as needed. 30 tablet 2 4 Active dextroamphetamin e-amphetamine (ADDERALL) 20 mg Tab tablet Take 1 tablet by mouth 2 (two) times a day. Active melatonin [address] 1 tablet (5 mg total) under the tongue nightly at bedtime as needed (insomnia). 90 tablet 1 5 03/11/20 25 Active lovastatin (MEVACOR) 20 MG tablet Take 1 tablet (20 mg total) by mouth nightly at bedtime. 90 tablet 3 5 Active rOPINIRole (REQUIP) 2 MG tablet Take 2 mg by mouth nightly at bedtime. Active therapeutic multivitamin tablet Take 1 tablet by mouth daily. Active dextroamphetamin e-amphetamine (ADDERALL) 10 mg Tab tablet 01/13/20 Discontinu ed(No CancelRX) omega-3s/dha/epa /fish oil/D3 (VITAMIN-D + OMEGA-3 ORAL) 01/13/20 25 Discontinu ed(No CancelRX) ergocalciferol (VITAMIN D2) 50,000 unit capsule Take by mouth. 4 01/13/20 25 Discontinu ed(No longer taking) gabapentin (NEURONTIN) 300 MG capsule Take 3 capsules (900 mg total) by mouth nightly at bedtime. 180 capsule 1 5 01/13/20 25 Discontinu ed(No longer taking) Active Problems Problem Noted Date Diagnosed Date Lightheadedness 12/20/2024 Assessment & Plan (12/20/2024 1:53 PM EDT): Still does get lightheaded with exertion from time to time, this does not happen reliably however. When he does have exertional lightheadedness the sensation is transient, he will pause activity for a minute or so, this sensation will pass and then can typically resume activity without any further issues. He has not had any dizziness to the point of being presyncopal he says. His blood pressure responded appropriately to exercise on his exercise stress test. No additional testing at this time. Cold feet 12/20/2024 Assessment & Plan (12/20/2024 2:07 PM EDT): ABIs were normal bilaterally Per Dr. Perry's note he did suspect some element of possible Raynaud's. Given his orthostatic hypotension would be cautious with adding any sort of calcium channel no. No medication changes at this time. Orthostatic hypotension 09/23/2024 Assessment & Plan (12/20/2024 2:06 PM EDT): Endorses a long history of positional orthostatic hypotension with which he he been asymptomatic. Orthostatic vital signs checked in office today as outlined above and were positive however blood pressure did recover very quickly. Again he was completely asymptomatic with this. We discussed that in the future if he were to develop symptoms with his orthostasis he could try counterpressure maneuvers and start using compression devices. Could consider medical therapy such as midodrine if needed. It looks like his neurologist has placed a referral to autonomic cardiology for him to see Dr. Brower in [place] Cervical myelopathy 05/27/2024 Assessment & Plan (01/12/2025 1:21 PM EDT): Urinary incontinence 06/24/2023 Mild neurocognitive disorder 05/04/2023 Overview (06/24/2023): recommend repeat testing 12-18 mos and formal driving eval now Assessment & Plan (06/29/2024 3:18 PM EST): Labs ordered as recommended by the psychologist who performed neurocognitive testing. I do not recommend treating to a vitamin D level of 50. I am not aware of any evidence to support this. I reviewed his prior records which demonstrate that he has already had his B12 level tested a couple of years ago and it was well over 700. I do not see any need to repeat this Orders: 25-OH vitamin D; Future Homocysteine; Future Methylmalonic acid, serum; Future Assessment & Plan (06/24/2023 2:12 PM EST): Encouraged to pursue the driving evaluation as recommended; it can be difficult to know when driving is no longer safe and it is best to find this out before an MVA occurs. Seborrheic dermatitis 06/17/2022 Foot pain, right 11/12/2021 Assessment & Plan (11/12/2021 3:01 PM EDT): R foot pain has been relieved by rest. However, pt is avid runner. Order for x- ray and referral to podiatry placed. Onychomycosis 06/13/2021 Assessment & Plan (06/13/2021 3:59 PM EST): Looks like a fungal infection. Discussed treatment options. He would like to try a topical medication. Parkinsonian syndrome Overview (06/13/2021): Probable PD: new change in sense of taste, very longstanding balance problems, abnormal MRI & GERMAN scan, EMG pending. Neuro Dr Stephens Assessment & Plan (01/12/2025 1:21 PM EDT): Assessment & Plan (10/30/2023 3:14 PM EDT): Given his long quest for a diagnosis which remains outstanding, further follow- up on this reported myelomalacia of the spinal cord is clearly necessary. I am not sure why additional imaging would be needed if it is already imaged and I will leave that decision to his neurologists but I would like him to make sure to bring this to his neurologists' attention Erectile dysfunction Assessment & Plan (06/13/2021 3:59 PM EST): Medications refilled. Restless leg syndrome Overview (06/13/2021): Longstanding, but suddenly much worse in Hyperlipidemia Overview (06/13/2021): Pretreatment LDL 200-250 Assessment & Plan (06/29/2024 3:18 PM EST): His cholesterol looks excellent on his statin. We discussed indications for primary prevention. I suspect his LDL will not be all that high without it but given his age and gender, there is a good chance that his cardiac risk will still be elevated enough that I would recommend a statin anyway. However, he can certainly try coming off it to see if it affects his symptoms at all and we agreed to repeat a lipid panel in 6 weeks Orders: Lipid panel; Future Assessment & Plan (06/13/2021 3:59 PM EST): Due for lipid panel to monitor statin use. Major depression, recurrent, full remission Overview (06/13/2021): Followed by psychiatry Attention deficit hyperactivity disorder (ADHD) Assessment & Plan (04/19/2024 1:02 PM EST): EKG will be faxed to his psychiatrist Orders: ECG 12-LEAD Resolved Problems Problem Noted Date Diagnosed Date Resolved Date Effects of high altitude 10/30/2023 Assessment & Plan (10/30/2023 3:17 PM EDT): I am not entirely sure what happened but it sounds like it was a combination of cerebral edema and hypoxia due to altitude. I strongly recommend against hiking at that altitude ever again for him and, if he chooses to go hiking at elevation in the future, such as a planned trip to [place] that he mentioned, he should make his ascent very slowly and carefully. Clearly he received excellent and appropriate treatment as his new neurologic symptoms have resolved. I explained the pathophysiology of stroke and TIA and that he did not have a stroke as none was visualized on imaging, and he did not have a TIA because the effects lasted much too long. Travel advice encounter 06/24/202306/05 Pilonidal cyst 11/12/2021 06/17/2022 Assessment & Plan (11/12/2021 3:00 PM EDT): No acute infection at today's visit. Likely needs surgical intervention. Referral placed Encounters Date Type Department Care Team Description 01/12/2025 10:40 AM EDT Telemedicine [facility] [address] [place] [address] Khadra Romo MD Hypermagnesemia (Primary Dx); Parkinsonism, unspecified Parkinsonism type; Cervical myelopathy 12/23/2024 Telephone [facility] [address] [place] [address] Khadra Romo MD Labs Only 12/20/2024 1:30 PM EDT Office Visit [facility] [address] Floor, [address] [place] [address] Laura Ayala CNP Orthostatic hypotension (Primary Dx); Lightheadedness; Cold feet 12/08/2024 3:30 PM EDT Telemedicine [facility] Department of Neurology [address] [place] [address], 8th Floor, [address] [place] [address] John Chopra MD Dysautonomia (Primary Dx); Cognitive decline; Restless leg syndrome; REM sleep behavior disorder; Orthostatic hypotension 11/24/2024 Orders Only [facility] [address] [place] [address] Unknown, Unknown, 11/22/2024 7:40 AM EDT - 11/22/2024 11:59 PM EDT Hospital Encounter [facility] [address] [place] [address] Aryan Perry MD Discharge Disposition: Home or Self Care 11/18/2024 Orders Only [facility] [address] [address] Unknown, Unknown, 11/08/2024 8:30 AM EDT Office Visit [facility] [address] [place] [address] Analia Acuña FNP Johndrow, Jennifer, PT Neck pain (Primary Dx) 11/02/2024 1:20 PM EDT - 11/02/2024 11:59 PM EDT Hospital Encounter Non-Invasive Cardiology [address] [place] [address] Aryan Perry MD Discharge Disposition: Home or Self Care 10/21/2024 11:45 AM EDT Office Visit [facility] [address] [place] [address] Analia Acuña FNP Johndrow, Jennifer, PT Neck pain (Primary Dx) 10/14/2024 7:15 AM EDT Office Visit [facility] [address] [place] [address] Analia Acuña FNP Johndrow, Jennifer, PT Neck pain (Primary Dx) from Last 3 Months Immunizations Immunization Administration Dates Next Due [id number] FORMULATION 05/28/2009 Hepatitis A, Adult 08/19/2023 Hepatitis B Adult 05/24/2008,11/22/2007,10/22/19 08 Hepatitis B CpG 09/23/2024 INFLUENZA, SPLIT VIRUS, TRIVALENT PF 12/22/2014 INFLUENZA, SPLIT VIRUS, TRIV ALENT W/ PRESERVATIVE IM 02/16/2014,05/17/2012,03/18/2007 Influenza High-Dose Quadriva lent Preservative Free IM 03/05/2022 Influenza Quadrivalent Adjuv anted Preservative Free IM 02/18/2023,02/28/2021 Influenza Quadrivalent Preservative Free IM 02/01,02/10/2017 Influenza Quadrivalent w/ Preservative IM 2017 Influenza Trivalent Adjuvant ed Preservative free IM 01/27/2024 Pneumococcal conjugate PCV20 06/16/2022 RSV Vaccine (bivalent) 02/18/2023 Td (adult), not adsorbed 05/04/2005 Td (adult),2 Lf Tetanus Toxo id, PF, Adsorbed 06/24/2023 Tdap 11/14/2013 Typhoid, ViCPs 08/18/2023 Zoster live 10/19/2015 Zoster recombinant 09/29/2020,04/18/2020 Family History Medical History Relation Comments Sleep apnea Brother Coronary artery disease Father Depression Mother Skin cancer Mother NOS Coronary artery disease Paternal Grandfather Breast cancer Sister Depression Sister Breast cancer Unspecified Aunt Depression Unspecified Psychiatric disorder Unspecified Substance a buse Colon cancer Neg Hx Diabetes Neg Hx Prostate cancer Neg Hx Relation Status Comments Brother Father (Age 47) Mother Paternal Grandfather (Age fifties) Sister (Age 53) Unspecified Social History Tobacco Use Types Packs/Day Years Used Date Smoking Tobacco: Never Smokeless Tobacco: Never Tobacco Cessation:Counseling Given: Not Answered Alcohol Use Standard Drinks/Week Comments Yes 0 [...] Orientation Bisexual 06/12/2021 8: 00 AM EST Last Filed Vital Signs Vital Sign Reading Time Taken Comments Blood Pressure 128/50 12/20/2024 1:48 PM EDT Pulse 51 12/20/2024 1:25 PM EDT Temperature 36.6 C (97.8 F) 06/10/2024 3:15 AM EST Respiratory Rate 14 06/10/2024 3:15 AM EST Oxygen Saturation 99% 12/20/2024 1:25 PM EDT Inhaled Oxygen Concentration - - Weight 81.6 kg (180 lb) 12/20/2024 1:25 PM EDT Height 182.9 cm (6' 0.01 ) 12/20/2024 1:25 PM ED T Body Mass Index 24.41 12/20/2024 1:25 PM EDT Plan of Treatment Upcoming Encounters Date Type Department Care Team (Late st Contact Info) Description 01/18/2025 1:30 PM EDT Office Visit [facility] [address] [place] [address] Analia Acuña, FELIZ [address] [place] [phone] [email or web address] [place] [address] 03/01/2025 Procedure [facility] Admitting Dept Virtual Department [address] [place] [id number] 03/01/2025 9:30 AM EDT Hospital Encounter [facility] Virtual Department [address] [place] [address] Shai Ayon MD [address] [place] [address] 03/01/2025 9:30 AM EDT - 03/01/2025 10:00 AM EDT Surgery [facility] Admitting Dept Virtual Department [address] [place] [address] Shai Ayon MD 10 [facility] 2 [place] [address] [email or web address] COLONOSCOPY 04/10/2025 11:00 AM EST Office Visit [facility] Neurology Neuromuscular [place] [address] [facility], [address] [place] [address] Lenny Pendleton MD [address] [facility] [address] [place] [address] [email or web address] 06/09/2025 1:00 PM EST Office Visit [facility] Department of Neurology [address] [facility], 8th Floor, [address] [place] [address] John Chopra MD [address] [place] [address] [email or web address] 07/21/2025 8:40 AM EDT Office Visit [facility] [facility] [address] [facility] [address] [place] [address] Khadra Romo MD [address] [facility] [address] [place] [address] 08/25/2025 11:00 AM EDT Office Visit [facility] Cardiology [facility] [address] [facility], [address] [place] [address] Clementine Brower MD [address] [place] [id number] [email or web address] Scheduled Procedures Name Priority Associated Diagnoses Date/Ti me COLONOSCOPY Screen for colon cancer 03/01/2025 9:30 AM EDT Health Maintenance Due Date Last Done Comments COLOGUARD 09/14/1999 COLONOSCOPY 09/14/1999 COLORECTAL CANCER SCREENING 09/14/1999 FIT TEST 09/14/1999 FOBT 09/14/1999 SIGMOIDOSCOPY 09/14/1999 VIRTUAL COLONOSCOPY 09/14/1999 INFLUENZA VACCINE (#1) 2024 , 02/18/2023, 03/05/2022, Additional history exists COVID-19 VACCINE ( season) 2025 01/27/2024, 02/18/2023, 03/05/2022, Additional history exists DEPRESSION SCREENING 06/28/2025 06/28/2024, 06/17/19 24 LIPID PANEL 09/09/2029 09/09/2024, 10/02, 06/16/2022, Additional history exists Adult Td,Tdap Booster 06/24/2033 06/24/2023 , 11/14/2013, 05/04/2005 ZOSTER VACCINES Completed 09/29/2020, 04/03, 10/19/2015 HEPATITIS C SCREENING Completed 06/12/2021 PNEUMOCOCCAL VACCINES (50+ years) Completed 06/16/2022 RSV VACCINE Completed 02/18/2023 HEPATITIS A VACCINES Aged Out 08/19/2023 No long er eligible based on patient's age to complete this topic SMOKING STATUS SCREENING (Once After 26 Yrs) Completed 01/12/2025 HIB VACCINES Aged Out No longer eligi ble based on patient's age to complete this topic MENINGOCOCCAL VACCINES (ACWY) Aged Out No longer eligible based on patient's age to complete this topic MENINGOCOCCAL VACCINES (B) Aged Out N o longer eligible based on patient's age to complete this topic Medical Devices Implanted Type Area [employer] Device Identifier Shelf Expiration Date Model / Serial / Lot Cranial Plate [id number] 20 Hole Bone Mandibular Trauma Adaption Straight Titanium - [id number] Implanted:Qty: 1 on 05/27/2024 by Margoth Velásquez MD at [facility] N/A: Posterior Cervical [employer] 449.020 / / Screw Bone 2x5mm Cortex Titanium Self Drilling Plusdrive Recess Single - [id number] Implanted:Qty: 3 on 05/27/2024 by Margoth Velásquez MD at [facility] N/A: Posterior Cervical [employer] [id number] / / Screw Bone 2x6mm Cranial Cortex Titanium Self Tapping Cruciform Recess [facility] - [id number] Implanted:Qty: 8 on 05/27/2024 by Margoth Velásquez MD at [facility] N/A: Posterior Cervical [employer] 401.063E / / Procedures Procedure Name Priority Date/Time Associated Diagnosis Comments US LOWER EXTREMITY ARTERIES (BEL) PHYSIO COMPLETE BILAT Routine 11/22/2024 8:09 AM EDT Pure hypercholesterolemia Orthostatic hypotension OUTSIDE LAB Routine 11/17/2024 12:28 PM EDT OUTSIDE LAB Routine 11/17/2024 12:02 PM EDT STRESS TEST EXERCISE Routine 11/02/2024 2:21 PM EDT Pure hypercholesterolemia Orthostatic hypotension LIPID PANEL Routine 09/09/2024 10:06 AM EDT Familial hypercholesterolemia HEPATITIS C ANTIBODY, QUALITATIVE Routine 06/12/2021 8:53 AM EST Need for hepatitis C screening test from Last 3 Months or Most Recently Relevant to Health Maintenance Results * US Lower Extremity Arteries (BEL) Physio Complete Bilat (11/22/2024 8:09 AM EDT) Arm 138 mmHg Posterior Tibial 162 mmHg Posterior Tibial Index 1.17 Dorsalis Pedis 158 mmHg Dorsalis Pedis Index 1.14 Posterior Tibial 168 mmHg Posterior Tibial Index 1.22 Dorsalis Pedis 162 mmHg Dorsalis Pedis Index 1.17 Anatomical Region Laterality Modality Ultrasound Narrative 11/22/2024 8:47 AM EDT Impression: Right Side: Ankle/Brachial index on the right side is 1.17, normal indice with a triphasic Doppler waveform. Left Side: Ankle/Brachial index on the left side is 1.21, normal indice with a triphasic Doppler waveform. No prior exam for comparison. Introductory Comments Techniques used for this study included: spectral waveform Doppler. Aryan Perry MD US VASCULAR Final Resul t * Outside Lab (11/17/2024 12:28 PM EDT) Only the most recent of2 resultswithin the time period is included. us Unknown Unknown LAB BLOOD ORDERABLES Edited R esult - Final * STRESS TEST EXERCISE (11/02/2024 2:21 PM EDT) Max Predicted Heart Rate 150 bpm Anatomical Region Laterality Modality Heart Ultrasound Narrative 11/03/2024 4:30 PM EDT ECG Report Pt exercised for 8:13 min on a DONOVAN protocol achieving 10.10 METS. Test terminated due to balance concerns and safety concerns. Baseline resting HR was 63 bpm. Max heart rate achieved was 105 bpm. (MPHR 70%). 1. ECG: Baseline ECG showed sinus arrhythmia. EKGs nondiagnostic due to patient unable to reach 85% MPHR. However there were no ECG changes meeting strict criteria for ischemia. 2. SYMPTOMS: No chest pain and no symptoms concerning for angina. 3. EXERCISE PHYSIOLOGY: High functional capacity for age. Blood pressure: 134/80 at rest, 162/80 with exercise, and 152/78 on discharge from stress lab. 4. ARRHYTHMIAS: Sinus arrhythmia. Occasional isolated PVCs. Occasional isolated PACs. Conclusion: There were no symptoms concerning for angina. There was no EKG changes suggestive for ischemia. Due to Parkinson's disease, the patient was unsteady on the treadmill and the test had to be terminated before they met diagnostic criteria (85% MPHR). Patient's heart rate and blood pressure increased with exercise. His blood pressure did take some time to come down after exercise. Clinical recommendation- correlate clinically if nuclear stress testing is warranted. See attached stress report for full details. Sandra Bentley NP us Aryan Perry MD CV STRESS ORDERABLES Final Result * (ABNORMAL) Lipid panel (09/09/2024 10:06 AM EDT) HDL 54 mg/dL [facility] Comment: Interpretation <40 mg/dL: Low HDL cholesterol (major risk factor for CHD) Greater than or equal to 60 mg/dL: High HDL cholesterol ( negative risk factor for CHD) HDL - cholesterol is affected by a number of factors, e.g. smoking, excerise, hormones, sex and age. CHOLESTEROL 216 0 - 240 mg/dL [facility] TRIGLYCERIDES 142 30 - 160 mg/dL [facility] LDL 134(H) 50 - 129 mg/dL [facility] Comment: LDL levels in terms of risk for coronary heart disease: <100 mg/dL: Optimal 100-129 mg/dL: Near or above optimal 130-159 mg/dL: Borderline high 160-189 mg/dL: High >190 mg/dL: Very High CARDIAC RISK RATIO 4.0 3.4 - 5.0 C [facility] Blood 09/09/2024 10:0 6 AM EDT 09/09/2024 10:13 AM EDT Khadra Romo MD LAB BLOOD ORDERABLES Final R esult Performing Organization Address City/[facility]/ZIP Co de Phone Number [address] [address] * Hepatitis C antibody, qualitative (06/12/2021 8:53 AM EST) HCV NON-REACTIV E NON-REACTI VE [facility] Blood 06/12/2021 8:53 AM EST 06/12/2021 8:54 AM EST Khadra Romo MD LAB BLOOD ORDERABLES Final R esult Performing Organization Address City/[facility] Co de Phone Number [address] [address] from Last 3 Months or Most Recently Relevant to Health Maintenance Insurance [employer] Advance Directives For more information, please contact: [phone] (9AM - 5PM [facility], Thursday-Thursday) Documents on File Type Date Recorded Patient 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 07/22/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 MOLST 06/29/2024 * Full Code (Latest Code Status on File) Date Activated Date Inactivated Comments 05/27/2024 11:53 AM Question Answer Comments Code Status Confirmed With: Other (specify below ) Code Discussion Comments: periop Care Teams Manager Insurance Relationship Specialty Start Date End Date Khadra Romo MD [address] [place] [phone] [email or web address] PCP - General Family Medicine 06/12/21 John Chopra MD [address] [place] [address] [email or web address] 06/17/23 Rai Pendleton-Alonzo Zelaya MD [address] [place] [address] [place] [phone] [email or web address] 06/17/23 Additional Source Comments The information contained in this document represents components of the legal health record. It is not the complete legal health record.[facility]
--- OUTSIDE RECORDS SUMMARY | 2025-01-14 06:30 | XMS_ITS | Encounter Summary ---
Author Organization [facility] Address [address] [place] [address] Phone Care Team Providers Care Sr. Logistics Analyst Name Role Phone Khadra Romo MD Primary Care Provider [phone] John Chopra MD Unavailable [phone] Lneny Pendleton MD Unavailable Encounter Details Date Type Department Care Team (Late st Contact Info) Description 05/27/2024 Procedure Pass [facility] PERIOPERATIVE DEPT [address] [place] [phone] Social History Tobacco Use Types Packs/Day Years Used Date Smoking Tobacco: Never Smokeless Tobacco: Never Alcohol Use Standard Drinks/Week Comments Yes 0 (1 standard drink = 0.6 oz pur e alcohol) Do not drink every week Home Health Assessment: Transportation Answer Date Recorded Lack of Transportation (Medical) No 05/30/2024 Lack of Transportation (Non-Medical) No 05/30/2024 Patient Unable or Declines to Respond No 05/30/2024 Child or Family Care Answer Date Record ed Do you have problems with on e of the following making it difficult for you to work, study, or receive health care? No 06/17/2023 Education Answer Date Recorded Are you interested in help w ith more adult education (for example, completing high school, GED, job training, learning the Vietnamese language, technical skills, or developing parenting skills)? [...] as food, clothing, or medical care? No 05/27/2024 In the past 12 months have y ou been in a relationship with a person who hurts, threatens, or tries to control you? No 05/27/2024 Are you denied basic needs s uch as food, clothing, or medical care? No 05/27/2024 In the past 12 months have y ou been in a relationship with a person who hurts, threatens, or tries to control you? No 05/27/2024 Sex and Gender Information Value Date Recorded Sex Assigned at Male 06/12/2021 8:00 AM EST Legal Sex Male 11:53 AM EDT Gender Identity Male 06/12/2021 8:00 AM EST Sexual Orientation Bisexual 06/12/2021 8: 00 AM EST documented as of this encounter Functional Status * Calculated C-SSRS Risk Score (Lifetime/Recent) Answer Date of Assessment Author No Risk Indicated 05/27/2024 1:00 PM Vonnie Kim RN * [place] Suicide Severity Rating Scale (Screener/Recent Self-Report) Question Answer Date of Assessment Author 1. Wish to be (Past 1 Month) No 05/27/2024 1:00 PM Vonnie Kim RN 2. Non-Specific Active Suici osman Thoughts (Past 1 Month) No 05/27/2024 1:00 PM Jo Kim RN 6. Suicidal Behavior (Lifetime) No 1:00 PM Vonnie Kim RN documented as of this encounter Plan of Treatment Upcoming Encounters Date Type Department Care Team (Late st Contact Info) Description 01/18/2025 1:30 PM EDT Office Visit [facility] Rehabilitation Services 8 [place] [address] Analia Acuña, FELIZ [address] [place] [address] [email or web address] Baxter, PT 8 [place] [address] 03/01/2025 Procedure Pass [facility] Virtual Department [address] [place] [address] 03/01/2025 9:30 AM EDT Hospital Encounter [facility] Virtual Department [address] [place] [address] Shai Ayon MD [address] [place] [address] 03/01/2025 9:30 AM EDT - 03/01/2025 10:00 AM EDT Surgery [facility] Endoscopy Admitting Dept Virtual Department [address] [place] [address] Shai Ayon MD 10 [facility] 2 [place] [address] [email or web address] COLONOSCOPY 04/10/2025 11:00 AM EST Office Visit [facility] Neurology Neuromuscular [address], [address] [place] [address] Lenny Pendleton MD [address] [facility] [address] [place] [address] [email or web address] 06/09/2025 1:00 PM EST Office Visit [facility] Department of Neurology 55 [facility], 8th Floor, [address] [place] [address] John Chopra MD 55 [place] [address] [email or web address] 07/21/2025 8:40 AM EDT Office Visit [facility] [place] [facility] 15 [facility] [address] [place] [address] Khadra Romo MD 15 [facility] Sonny[address] [place] [address] [email or web address] 08/25/2025 11:00 AM EDT Office Visit [facility] Cardiology [facility] [address] [facility], [address] [place] [address] Clementine Brower MD [address] [place] [address] [email or web address] Scheduled Procedures Name Priority Associated Diagnoses Date/Ti tx COLONOSCOPY Screen for colon cancer 03/01/2025 9:30 AM EDT documented as of this encounter Visit Diagnoses Not on filedocumented in this encounter Additional Health Concerns Assessment Noted Time PHQ-9 Depression Total Score: 12 024 3:46 PM EST PHQ-2 Depression Total Score: 4 06/23/19 24 11:49 PM EST documented as of this encounter Care Teams Sr. Logistics Analyst Relationship Specialty Start Date End Date Khadra Romo MD 15 [facility] 201 [place] [address] [email or web address] PCP - General Family Medicine 06/12/21 John Chopra MD [address] [place] [address] [email or web address] Neurology 06/17/23 Rai Pendleton-Alonzo Zelaya MD [address] [place] [address] 820 [place] [address] [email or web address] Neurology 06/17/23 documented as of this encounter Additional Source Comments The information contained in this document represents components of the legal health record. It is not the complete legal health record.[facility]
--- OUTSIDE RECORDS SUMMARY | 2025-01-14 06:30 | XMS_ITS | Encounter Summary ---
Author Organization [facility] Address [address] [facility] [address] [place] [address] Phone Care Team Providers Care Property Claim Rep Name Role Phone Khadra Romo MD Primary Care Provider [phone] John Chopra MD Unavailable [phone] Lenny Pendleton MD Unavailable Reason for Visit * Reason Onset Date Comments Labs Only 12/23/2024 Encounter Details Date Type Department Care Team (Late st Contact Info) Description 12/23/2024 Telephone 80/20 [facility] Primary Care 15 [facility] [address] [place] [address] Khadra Romo MD 15 [facility] [address]ny[address] [place] [address] [email or web address] Labs Only Social History Tobacco Use Types Packs/Day Years [...] Progress Notes * Khadra Romo MD - 01/03/2025 4:33 PM EDT Yes please * Afia Valnecia RN - 12/23/2024 10:[address] Simons psych provider from [facility] stating he has abnormal labs he wants to fax to PCP ( elevated Mg). Looking for fax number which was provided. FYI to PCP re labs documented in this encounter Plan of Treatment Upcoming Encounters Date Type Department Care Team (Late st Contact Info) Description 01/18/2025 1:30 PM EDT Office Visit [facility] Rehabilitation Services 8 [place] [address] Analia Acuña, SETTER [employer] [address] [address] [email or web address] Baxter, PT 8 [place] [address] 03/01/2025 Procedure Pass [facility] Admitting [facility] Virtual Department [address] [place] [address] 03/01/2025 9:30 AM EDT Hospital Encounter [facility] Endoscopy Admitting Dept Virtual Department [address] [place] [address] Shai Ayon MD [address] [place] [address] 03/01/2025 9:30 AM EDT - 03/01/2025 10:00 AM EDT Surgery [facility] Endoscopy Admitting Dept Virtual Department 30 [place] [address] Shai Ayon MD 10 [facility] 2 [place] [address] COLONOSCOPY 04/10/2025 11:00 AM EST Office Visit [facility] Neurology Neuromuscular [place] 52 [facility], [address] [place] [address] Rai Pendleton-Alonzo Zelaya MD 165 [facility] [address] [place] [address] [email or web address] 06/09/2025 1:00 PM EST Office Visit [facility] Department of Neurology 55 [facility], 8th Floor, [address] [place] [address] John Chopra MD 55 [place] [address] [email or web address] 07/21/2025 8:40 AM EDT Office Visit [facility] [place] Primary [facility] 15 [facility] [address] [place] [address] Khadra Romo MD 15 [facility] [address]ny[address] [place] [address] [email or web address] 08/25/2025 11:00 AM EDT Office Visit [facility] Cardiology [facility] 52 [facility], [address] [place] [address] Clementine Brower MD [address] [place] [place] [address] [email or web address] Scheduled Procedures Name Priority Associated Diagnoses Date/Ti ks COLONOSCOPY Screen for colon cancer 03/01/2025 9:30 AM EDT documented as of this encounter Visit Diagnoses Not on filedocumented in this encounter Additional Health Concerns Assessment Noted Time PHQ-9 Depression Total Score: 12 024 3:46 PM EST PHQ-2 Depression Total Score: 1 06/28/19 25 2:08 PM EST documented as of this encounter Care Teams Property Claim Rep Relationship Specialty Start Date End Date Khadra Romo MD 15 [facility] 201 [place] [address] [email or web address] PCP - General Family Medicine 06/12/21 John Chopra MD 55 [place] [address] [email or web address] Neurology 06/17/23 Rai Pendleton-Alonzo Zelaya MD 165 [facility] 820 [place] [address] [email or web address] [email or web address] 06/17/23 documented as of this encounter Additional Source Comments The information contained in this document represents components of the legal health record. It is not the complete legal health record.[facility]
--- OUTSIDE RECORDS SUMMARY | 2025-01-14 06:30 | XMS_ITS | Encounter Summary ---
Author Organization [facility] Address [address] [place] [address] Phone Care Team Providers Care Combiner Name Role Phone Khadra Romo MD Primary Care Provider John Chopra MD Unavailable [phone] Rai Pendleton-Alonzo Zelaya MD Unavailable Encounter Details Date Type Department Care Team (Late st Contact Info) Description 01/06/2024 Procedure Pass [facility] Ct Scan - [address] [address] Social History Tobacco Use Types Packs/Day Years [...] high school, GED, job training, learning the Chilean language, technical skills, or developing parenting skills)? [...] your housing situation today? I have moise zhao 06/17/2023 How many times have you move [...] Description 01/18/2025 1:30 PM EDT Office Visit [facility] [address] [place] [address] [place] [address] Analia Acuña, SUPERVISORY LIFEGUARD 15 [facility] [address] [place] [address] [email or web address] Ramona Ariadne, PT 8 [place] [address] 03/01/2025 Procedure Pass [facility] Admitting [facility] Virtual Department [address] [place] [address] 03/01/2025 9:30 AM EDT Hospital Encounter [facility] Endoscopy Admitting Dept Virtual Department [address] [place] [address] Shai Ayon MD [address] [address] 03/01/2025 9:30 AM EDT - 03/01/2025 10:00 AM EDT Surgery [facility] Endoscopy Admitting Dept Virtual Department [address] [place] [address] Shai Ayon MD [address] [place] [address] [email or web address] COLONOSCOPY 04/10/2025 11:00 AM EST Office [place] [facility] [place] Neuromuscular [address], [address] [place] [address] Lenny Pendleton MD 165 [facility] [address] [place] [address] [email or web address] 06/09/2025 1:00 PM EST Office Visit [facility] Department of Neurology [address] [place] [address], 8th Floor, [address] [place] [address] John Chopra MD 55 [place] [address] [email or web address] 07/21/2025 8:40 AM EDT Office Visit [facility] [place] [facility] 15 [facility] [address] [place] [address] Khadra Romo MD 15 [facility] Sonny. 201 [place] [address] 08/25/2025 11:00 AM EDT Office Visit [facility] [place]iology [address], [address] [place] [address] Clementine Brower MD [address] [place] [address] [email or web address] Scheduled Procedures Name Priority Associated Diagnoses Date/Ti me COLONOSCOPY Screen for colon cancer 03/01/2025 9:30 AM EDT documented as of this encounter Visit Diagnoses Not on filedocumented in this encounter Additional Health Concerns Assessment Noted Time PHQ-9 Depression Total Score: 12 024 3:46 PM EST PHQ-2 Depression Total Score: 4 06/23/19 24 11:49 PM EST documented as of this encounter Care Teams Combiner Relationship Specialty Start Date End Date Khadra Romo MD 15 [facility] [address]ny[address] [place] [address] [email or web address] PCP - General Family Medicine 06/12/21 John Chopra MD 55 [place] [address] [email or web address] Neurology 06/17/23 Lenny Pendleton MD [address] [place] [address] [address] [place] [address] [email or web address] Neurology 06/17/23 documented as of this encounter Additional Source Comments The information contained in this document represents components of the legal health record. It is not the complete legal health record.[facility]
--- OUTSIDE RECORDS SUMMARY | 2025-01-14 06:30 | XMS_ITS | Encounter Summary ---
Author Organization [facility] Address [address] [facility] [address] [place] [address] Phone Care Team Providers Care Sales Promoter Name Role Phone Khadra Romo MD Primary Care Provider [phone] Pcp, Unknown Unavailable Unavailable John Chopar MD Unavailable [phone] Lenny Pendleton MD Unavailable Encounter Details Date Type Department Care Team (Late st Contact Info) Description 11/22/2022 Procedure Pass [facility], [address] [address] Social History Tobacco Use Types Packs/Day Years Used Date Smoking Tobacco: Never Smokeless Tobacco: Never Alcohol Use Standard Drinks/Week Comments Yes 0 (1 standard drink = 0.6 oz pur e alcohol) Child or Family Care Answer Date Record ed Do you have problems with on e of the following making it difficult for you to work, study, or receive health care? No 06/15/2022 Education Answer Date Recorded Are you interested in help w ith more adult education (for example, completing high school, GED, job training, learning the Estonian language, technical skills, or developing parenting skills)? No 06/15/2022 Food Answer Date Recorded Within the past 6 months we worried whether our food would run out before we got money to buy more. Never True 06/15/2022 Within the past 6 months the food we bought just didn't last and we didn't have enough money to get more. Never True Residential Stability Answer Date Recor ded What is your housing situation today? I have moise zhao 06/15/2022 How many times have you move d in the past 12 months? Zero (I did not move) 06/15/2022 Paying for Meds Answer Date Recorded Do you have trouble paying for medicines? No 06/15/2022 Paying Utility Bills Answer Date Record ed Do you have trouble paying your heating or elect ricity bill? No 06/15/2022 Transportation Answer Date Recorded Has the lack of transportati on kept you from medical appointments or from getting medications? No 06/15/2022 Unemployment Answer Date Recorded Are you currently unemployed or working on a part-time or temporary basis, and looking for work? No 06/15/2022 Digital Access Answer Date Recorded No 09/30/2022 No 09/30/2022 Reliable internet access at home? Not on file 09/30/2022 Device with a working camera? Not on file Sex and Gender Information Value Date Recorded Sex Assigned at Male 06/12/2021 8:00 AM EST Legal Sex Male 11:53 AM EDT Gender Identity Male 06/12/2021 8:00 AM EST Sexual Orientation Bisexual 06/12/2021 8: 00 AM EST documented as of this encounter Plan of Treatment Upcoming Encounters Date Type Department Care Team (Late st Contact Info) Description 01/18/2025 1:30 PM EDT Office Visit [facility] Rehabilitation Services [address] [place] [address] Analia Acuña, FELIZ [address] [address] [email or web address] Baxter, PT 8 [place] [address] 03/01/2025 Procedure Pass [facility] Endoscopy Admitting Dept Virtual Department [address] [place] [address] 03/01/2025 9:30 AM EDT Hospital Encounter [facility] Endoscopy Admitting Dept Virtual Department 30 [place] [address] Shai Ayon MD 10 [facility] 2 [place] [address] 03/01/2025 9:30 AM EDT - 03/01/2025 10:00 AM EDT Surgery [facility] Endoscopy Admitting Dept Virtual Department 30 [place] [address] Shai Ayon MD 10 [facility] 2 [place] [address] COLONOSCOPY 04/10/2025 11:00 AM EST Office Visit [facility] Neurology Neuromuscular [address], [address] [place] [address] Rai Pendleton-Alonzo Zelaya MD [address] [place] [address] [address] [place] [address] [email or web address] 06/09/2025 1:00 PM EST Office Visit [facility] Department of Neurology 55 [facility], 8th Floor, [address] [place] [address] John Chopra MD 55 [place] [address] [email or web address] 07/21/2025 8:40 AM EDT Office Visit [facility] [place] [facility] 15 [facility] [address] [place] [address] Khadra Romo MD 15 [facility] [address]ny. 201 [place] [address] 08/25/2025 11:00 AM EDT Office Visit [facility] Cardiology [facility] 52 [facility], [address] [place] [address] Clementine Brower MD [address] [place] [address] [email or web address] Scheduled Procedures Name Priority Associated Diagnoses Date/Ti me COLONOSCOPY Screen for colon cancer 03/01/2025 9:30 AM EDT documented as of this encounter Visit Diagnoses Not on filedocumented in this encounter Additional Health Concerns Assessment Noted Time PHQ-9 Depression Total Score: 13 023 11:10 PM EST PHQ-2 Depression Total Score: 4 06/15/19 23 11:10 PM EST documented as of this encounter Care Teams Sales Promoter Relationship Specialty Start Date End Date Khadra Romo MD [address] [address] [email or web address] PCP - General Family Medicine 06/12/21 Pcp, Unknown 01/28/21 06/16/23 John Chopra MD 55 [place] [address] [email or web address] Neurology 06/17/23 Rai Pendleton-Alonzo Zelaya MD [address] [place] [address] 820 [place] [address] [email or web address] Neurology 06/17/23 documented as of this encounter Additional Source Comments The information contained in this document represents components of the legal health record. It is not the complete legal health record.[facility]
--- OUTSIDE RECORDS SUMMARY | 2025-01-14 06:30 | XMS_ITS | Encounter Summary ---
Author Organization [facility] Address [address] [facility] [address] [place] [address] Phone Care Team Providers Care Package Checker Name Role Phone Khadra Romo MD Primary Care Provider John Chopra MD Unavailable [phone] Lenny Pendleton MD Unavailable Encounter Details Date Type Department Care Team (Late st Contact Info) Description 11/10/2023 Procedure Pass [facility], [address] [address] Social History Tobacco Use Types Packs/Day Years [...] high school, GED, job training, learning the Arabic language, technical skills, or developing parenting skills)? [...] Description 01/18/2025 1:30 PM EDT Office Visit [facility] [address] [place] [address] [place] [address] Analia Acuña, TRAP SETTER 15 [facility] [address] [place] [address] [email or web address] TobiasAriadne horvath, PT 8 [place] [address] 03/01/2025 Procedure Pass [facility] Endoscopy Admitting Dept Virtual Department [address] [place] [address] 03/01/2025 9:30 AM EDT Hospital Encounter [facility] Endoscopy Admitting Dept Virtual Department [address] [place] [address] Shai Ayon MD [address] [address] 03/01/2025 9:30 AM EDT - 03/01/2025 10:00 AM EDT Surgery [facility] Endoscopy Admitting Dept Virtual Department [address] [place] [address] Shai Ayon MD [address] [address] [email or web address] COLONOSCOPY 04/10/2025 11:00 AM EST Office Visit [facility] Neurology Neuromuscular [address], [address] [place] [address] Lenny Pendleton MD [address] [place] [address] [address] [place] [address] [email or web address] 06/09/2025 1:00 PM EST Office Visit [facility] Department of Neurology 55 [facility], 8th Floor, [address] [place] [address] John Chopra MD 55 [place] [address] [email or web address] 07/21/2025 8:40 AM EDT Office Visit [facility] [place] [facility] 15 [facility] [address] [place] [address] Khadra Romo MD 15 [facility] [address]ny. [address] [place] [address] 08/25/2025 11:00 AM EDT Office Visit [facility] Cardiology [address], [address] [place] [address] Clementine Brower MD [address] [place] [address] [email or web address] Scheduled Procedures Name Priority Associated [...] documented as of this encounter Care Teams Package Checker Relationship Specialty Start Date End Date Khadra Romo MD 15 [facility] [address] [place] [address] [email or web address] PCP - General Family Medicine 06/12/21 John Chopra MD 55 [place] [address] [email or web address] Neurology 06/17/23 Lenny Pendleton MD [address] [place] [address] 820 [place] [address] [email or web address] Neurology 06/17/23 documented as of this encounter Additional Source Comments The information contained in this document represents components of the legal health record. It is not the complete legal health record.[facility]
[2025-01-14 06:39] LABS: Hematocrit 39.7 % (42.0-52.0); Hemoglobin 13.7 g/dl (14.0-18.0); Imm Gran Abs Auto 0.05 X10*3/uL (0.00-0.03); Imm Gran Pct Auto 0.4 % (0.0-0.4); Lymphocytes Absolute Auto 2.2 X10*3/uL (1.2-4.9); MANUAL DIFF FLAG SCAN; Mean Corpuscular HGB Conc 34.5 g/dl (31.0-36.0); Mean Corpuscular Hemoglobin 30.4 pg (27.0-33.0); Mean Corpuscular Volume 88.2 fL (80.0-98.0); NRBC Abs Auto 0.000 X10*3/uL (0.0-0.012); NRBC Pct Auto 0.0 /100WBC (0.0-0.2); Platelet Count 161 X10*3/uL (160-400); Red Blood Count 4.50 X10*6/uL (4.60-5.80); SCAN SMEAR FLAG 1; White Blood Count 11.9 X10*3/uL (4.8-10.8)
[2025-01-14 06:53] LABS: Anion Gap 13 (12-20); Blood Urea Nitrogen 12 mg/dL (9-16); Calcium 8.6 mg/dL (8.4-10.2); Carbon Dioxide 24 mmol/L (22-29); Chloride 107 mmol/L (96-108); Creatinine Clr Calc Pharmacy 95.4; Estimated Glomerular Filt Rate > 60; Potassium 4.1 mmol/L (3.3-5.1); Sodium 140 mmol/L (135-145)
[2025-01-14 07:01] LABS: Troponin-I High Sensitivity 5.0 ng/L (<3.5-35.0)
[2025-01-14 07:06] VITALS: BP 118/68; PULSE 66; RESP 18; O2SAT 98
--- NOTE | 2025-01-14 07:37 | ED.CHESTPAIN ---
HPI - Chest Pain General Chief Complaint: Chest Pain Stated Complaint: SOB, chest pain Time Seen by Provider: 01/14/25 07:06 Source: patient, RN notes reviewed and old records reviewed Mode of arrival: ambulatory Limitations: no limitations History of Present Illness ED Provider: CHRISTAL Trinh HPI narrative: 69-year-old male with medical history of anxiety, depression, HLD, synucleinopathy seeing neurologist in [place], orthostatic hypotension, presents to the ED due to 2 days of chest pain. Patient reports yesterday he began noticing right-sided chest pain that developed gradually throughout the day and has been progressively worsening over the past 2 days. Patient states the night before the onset of chest pain you had a difficult time sleeping and did some extensive yoga stretching and thought he may have pulled a muscle in his chest. Patient reports last night the chest pain had expanded from the right into the left side and is in a bandlike pattern located under the nipple line which is worse when patient changes position, and with deep inspiration. Feels as if he has to breath shallowly to prevent pain. Reports experiencing chills last night with an oral TMax of 99.7. Patient reports the pain does not radiate, was not associated with nausea or vomiting, diaphoresis, dizziness, or exertion. Denies recent illness, sick contacts, recent travel, SOB, dizziness, cough, Related Data Home Medications ?Medication ?Instructions ?Recorded ?Confirmed bupropion HCl 300 mg 24 hr tablet, 300 mg PO DAILY 06/10/21 02/13/23 extended release lovastatin 20 mg tablet 20 mg PO DAILY 06/10/21 02/13/23 lamotrigine 250 mg tablet,extended 500 mg PO DAILY 01/07/22 02/13/23 release 24 hr sildenafil 100 mg tablet 100 mg PO DAILY PRN 02/14/22 02/13/23 gabapentin 300 mg capsule 300 mg PO BID 11/17/24 Previous Rx's ?Medication ?Instructions ?Recorded ropinirole 0.5 mg tablet 0.5 mg PO BEDTIME #90 tabs 12/24/22 ropinirole 2 mg tablet,extended 2 mg PO BEDTIME #30 tabs 02/13/23 release 24 hr cholecalciferol (vitamin D3) 50 50 mcg PO DAILY 90 days #90 caps 04/02/23 mcg (2,000 unit) capsule cyanocobalamin (vitamin B-12) 2,500 mcg PO DAILY 90 days #90 tabs 04/02/23 2,500 mcg tablet colchicine 0.6 mg capsule 0.6 mg PO DAILY 6 months #180 caps 01/14/25 colchicine 0.6 mg tablet 0.6 mg PO DAILY 6 months #180 tabs 01/14/25 ibuprofen 800 mg tablet 800 mg PO TID 14 days #42 tabs 01/14/25 omeprazole 20 mg capsule,delayed 20 mg PO BID 2 weeks #28 caps 01/14/25 release Allergies Allergy/AdvReac Type Severity Reaction Status Date / Time No Known Allergies Allergy Verified 01/14/25 06:16 Review of Systems Review of Systems: CONST: Negative for fever, body aches and chills. HENT: Negative for neck pain/stiffness, headache, congestion, sore throat, swelling. EYES: Negative for discharge/pain or vision changes. RESP: Negative for cough/hemoptysis and shortness of breath. POS SOB with inspiration CV: Negative difficulty breathing, palpitations. POS chest pain ABD: Negative pain, nausea, vomiting. : Negative increase frequency, dysuria, blood in urine or stool. MUSC: Negative for muscle aches, edema. SKIN: Negative rash, lesions/sores. NEURO: Negative headache, dizziness, weakness. Yes all other systems are reviewed and are negative PMFSH Past Medical History Attestation statement: The following information was validated with the patient. Source: old records reviewed, obtained from family ( at bedside corroborating history) and nursing notes reviewed Medical History Cognitive disorder Back pain Anxiety Depression Hyperlipidemia Non-melanoma skin cancer Surgical History H/O cervical spine surgery History of ear surgery Family History Family History Father Myocardial infarction Family/Other Cancer Family/Other Breast cancer Mother Skin cancer Social History Social History Household Members: Spouse Housing: House Alcohol intake: current Alcohol intake frequency: holidays/special occasions only Alcohol type: beer and hard liquor Patient Tobacco Use Status: Never used Tobacco e-Cigarette/Vaping Use: Never Used service: No Current occupational status: employed 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 HEENT: ?NC, AT. MMM. EOMI, clear conjunctiva, oropharynx clear. NECK: ?Supple without lymphadenopathy.? No stiffness or restricted ROM. HEART:? Normal rate and regular rhythm, normal S1/S2, no m/r/g, unable to reproduce chest pain when palpating the chest wall LUNGS:? CTAB, moving air well. No crackles or wheezes are heard. ABDOMEN: ?Soft, nontender, nondistended with good bowel sounds heard. BACK: No CVAT, no obvious deformity. EXTREMITIES: ?Without cyanosis, clubbing or edema. NEUROLOGICAL: ?Grossly nonfocal. Alert and oriented, moving all 4 extremities. Observed to ambulate with normal gait. Skin: ?Warm and dry without any rash. Course Course Course Narrative: Attending note, : The patient is a 69-year-old male. His physical appearance is that of a fit looking 69-year-old he is not tachycardic, tachypneic, or hypoxic. He has EKG changes suggestive of pericarditis. His primary symptoms seems to be chest discomfort which has a pleuritic quality and which is also positional. He says the pain was much worse with lying down. The patient had complete relief of symptoms following a dose of ketorolac. Based on his description of the symptoms and his EKG findings I think pericarditis is the likely diagnosis in his case. His previous EKG was normal compared to today's EKG and the difference between the EKGs is consistent with new pericarditis. Although he has pleuritic chest pain my suspicion for a pulmonary embolism in his case would be very low given his normal heart rate, normal respiratory rate, normal oxygen saturation. The physician mailing machine assistant discussed the case with Cardiology and we have followed through with recommendations from Cardiology. Medications Administered Discontinued Medications Generic Name Dose Route Start Last Admin Trade Name Rossy PRN Reason Stop Dose Admin Acetaminophen 1,000 mg in 100 mls @ 400 mls/hr 01/14/25 08:14 01/14/25 08:19 Ofirmev IV 01/14/25 08:28 400 mls/hr ONCE ONE Administration Ketorolac Tromethamine 15 mg 01/14/25 08:14 01/14/25 08:21 Ketorolac Tromethamine 15 Mg/Ml Vial IVPUSH 01/14/25 08:15 15 mg ONCE ONE Administration Procedures Procedure Narrative Procedure Narrative: I was asked to participate in this patient's care only to review and supervise point of care ultrasound echo see the report below. EMERGENCY ULTRASOUND INTERPRETATION-Limited Echocardiography [This study was ordered, performed, and interpreted by myself. The study reveals: Impression: NORMAL LV FUNCTION, NO RV DYSFUNCTION, NO PERICARDIAL EFFUSION] [Emergent Cardiac for Indication: Views Used: PLAX, PSSA, A4, SX, IVC Pericardial Effusion/Tamponade Findings: NONE RV Dilation (> LV diam in 4ch apical): NONE Global LV Fxn: NORMAL Performed by: MD Maya Images were stored CPT:55505] Medical Decision Making Medical Decision Making MDM Narrative: 69-year-old male with medical history of anxiety, depression, HLD, synucleinopathy seeing neurologist in [place], orthostatic hypotension presenting to ED with 2 days of progressively worsening chest pain that started on the right side and has now expanded to the left side in the bandlike pattern, that is worse with deep inspiration, lying down flat, and moving from left to right. Chest pain does not radiate, is not associated with nausea, vomiting, diaphoresis, lightheadedness, exertion. Shortness of breath is due to not being able to take a deep breath in whithout eliciting pain. No recent illnesses or sick contacts, no history of IVDU VS on initial observation-BP 118/68, pulse rate of 66, respiratory rate of 18, afebrile with oral temp of 98?, O2 saturation 98% on room air. On physical exam lungs clear to auscultation bilaterally, cardiac exam reveals normal rate and rhythm without murmurs/rubs/gallops, no distant heart sounds, unable to reproduce chest pain when palpating the chest wall, no overlying skin changes or rashes. Plan: Labs, CXR, EKG, Course 11:47- EKG reveals VA depressions, ST elevations in inferior and anterolateral leads consistent with acute pericarditis, initial troponin WNL at 5, 2nd troponin WNL at 3.9 without delta. Labs revealed leukocytosis of 11.9, H and H stable however slightly decreased with HGB of 13.7, and HCT of 39.7, random serum glucose of 134, no electrolyte abnormality. CRP is elevated at 4.83, ESR WNL at 6. Viral serology negative. CXR negative for acute cardiopulmonary processes. I did reach out to buckle assembler Dr. Putnam who recommended Ibuprofen 800mg TID, and Colchicine 0.6 daily for 6 months for treatment. I will also place cardiology referral. Patient with 2 days of gradually worsening chest pain that is worse when lying flat, when moving onto left or right side, has been feeling ?run down? last 2 days with difficulty sleeping. EKG with VA depressions, ST elevations in inferior and anterolateral leads. Troponins x2 WNL negative for delta changes. Patient was medicated with 1 g IV Tylenol, 15 mg IV Toradol while in department with good effect on his chest pain. Will discharge with treatment for pericarditis and follow up with [facility] [place] cardiology. Patient vital signs have remained stable with BP of 109/63, pulse rate of 60, respiratory rate of 14, afebrile with oral temp of 97.7, O2 saturation 97% on room air. Patient states when he got up to go the bathroom he did have an episode of watery diarrhea, and has a mild headache. I do think patient has viral syndrome due to these symptoms, and 2 days of feeling run down with fatigue. I counseled patient to stay hydrated with sports drinks, Pedialyte, good nutrition, and to follow up with Cardiology and his primary care doctor. Patient feels well enough to go home for self-care, patient and his are in agreement with the plan. Differential Diagnosis Differential Diagnoses: The differential diagnosis associated with the presentation includes ACS Pneumothorax Viral illness Pneumonia Pericarditis Chest wall muscle strain Atypical chest pain Admission/Observation Consideration of admission/observation: Escalation of care including admission/observation considered Lab Data MDM Lab Attestation statement: I reviewed the patient's lab results. 01/14/25 06:32 09/13/25 06:32 Labs: Lab Results 01/14/25 01/14/25 Range/Units 06:32 08:28 WBC 11.9 H (4.8-10.8) X10*3/uL RBC 4.50 L (4.60-5.80) X10*6/uL Hgb 13.7 L (14.0-18.0) g/dl Hct 39.7 L (42.0-52.0) % MCV 88.2 (80.0-98.0) fL MCH 30.4 (27.0-33.0) pg MCHC 34.5 (31.0-36.0) g/dl RDW 13.4 (11.0-16.0) % Plt Count 161 (160-400) X10*3/uL MPV 10.7 (9.4-12.4) fL Immature Gran % (Auto) 0.4 (0.0-0.4) % Neut % (Auto) 67.5 (45-73) % Lymph % (Auto) 18.3 L (20-40) % [place] % (Auto) 13.5 H (2-11) % Eos % (Auto) 0.1 (0-4) % Baso % (Auto) 0.2 (0-2) % Lymph # (Auto) 2.2 (1.2-4.9) X10*3/uL [place] # (Auto) 1.6 H (0.1-1.2) X10*3/uL Eos # (Auto) 0.0 (0.0-0.4) X10*3/uL Baso # (Auto) 0.0 (0.0-0.2) X10*3/uL Abs Immat Gran (auto) 0.05 H (0.00-0.03) X10*3/uL Absolute Neuts (auto) 8.0 (2.0-8.3) x10*3/uL Absolute Nucleated RBC 0.000 (0.0-0.012) X10*3/uL Nucleated RBC % (auto) 0.0 (0.0-0.2) /100WBC Smear Tech's Comments VERIFIED ESR 6 (0-15) MM/HR Sodium 140 (135-145) mmol/L Potassium 4.1 (3.3-5.1) mmol/L Chloride 107 (96-108) mmol/L Carbon Dioxide 24 (22-29) mmol/L Anion Gap 13 (12-20) BUN 12 (9-16) mg/dL Creatinine 0.79 (0.5-1.4) mg/dL Estim Creat Clear Calc 95.4 Estimated GFR > 60 Random Glucose 134 H (60-115) mg/dL Calcium 8.6 (8.4-10.2) mg/dL Troponin I High Sens 5.0 3.9 (<3.5-35.0) ng/L C-Reactive Protein 4.83 H (< or = 0.50) mg/dL COVID-19 ([facility]) Negative (Negative) COVID-19 Clin Com See Note Influenza Type A ([facility]) Negative (Negative) Influenza Type B ([facility]) Negative (Negative) Influenza A & B Note See Note Independent Interpretation I performed an independent interpretation of an: EKG and Plain X-Ray Interpretation: I personally interpreted the EKG which reveals VA depression, ST-elevation in inferior and anterior lateral leads consistent with acute pericarditis Vent. Rate : 71 BPM Atrial Rate : 71 BPM P-R Int : 174 ms QRS Dur : 86 ms QT Int : 382 ms P-R-T Axes : 71 53 52 degrees QTcB Int : 415 ms Sinus rhythm with marked sinus arrhythmia Possible Acute pericarditis Abnormal ECG When compared with ECG of 07-Jan-2022 12:09, Premature ventricular complexes are no longer Present ST elevation now present in Inferior leads ST elevation now present in Anterolateral leads I personally interpreted the CXR which was negative for cardiomegaly, infiltrates, consolidations, does reveal nodular opacities, is probable nipple shadow I agree with the radiologist's interpretation Radiology Impression Discussion of test interpretation with radiology: I have reviewed the radiologist's reading. Radiologist Impression: CXR Findings: Nodular opacities are seen in the lower lung zones symmetrically likely representing nipple shadows. The lungs are otherwise clear. Normal size heart. No acute fracture. IMPRESSION: 1. No acute findings. 2. Likely nipple shadows. Please repeat with nipple markers. This document has been electronically signed by: Lavell Gallegos MD on 01/14/2025 07:15:57 Independent Historian Clinical information obtained from an independent historian. History obtained from or confirmed by: Spouse ( at bedside) External Record Review External record reviewed: Inpatient record, Office record and Outpatient record Chronic Conditions Patient?s care impacted by: Other (Anxiety, depression, HLD, synucleinopathy) Discharge Plan Discharge Clinical Impression: Pericarditis, Viral illness Patient Disposition: Home, Self-Care Instructions: Acute Pericarditis (ED), Viral Syndrome (ED) Additional Instructions: You were evaluated in the ED today due to chest pain, and shortness of breath. Your lab work is significant for a mild increased white blood cell count of 11.9, without electrolyte abnormality your CRP which is an inflammatory marker was elevated at 4.83 this is most likely due to pericarditis, you had a very mild anemia with a hemoglobin of 13.7 and a hematocrit of 39.7. This is nonemergent however you should discuss these findings with your primary care doctor. Your EKG showed evidence of acute pericarditis today. Your troponins which is an enzyme that is elevated in the heart is under damage or stress were both within normal limits. I did speak with the buckle assembler today who agreed on starting you on high dose NSAID therapy and colchicine for treatment of pericarditis, with referral to his office. You need to call their office as they will not call you. Additionally, I believe you have some sort of viral illness, your COVID and flu were negative today however you stated you had an episode of diarrhea with headache while in the department today and have been feeling ?run down? for the past 2 days. You will be discharged with a 2 week course of 800 mg ibuprofen that you will take 3 times daily, and a six-month course of colchicine that you will take daily to control the inflammation of the sac around your heart causing pericarditis. Additionally, you can take 500 mg of Tylenol every 6 hours for pain management. You will also be prescribed a 2 week course of omeprazole that you will take twice daily to protect her stomach while on ibuprofen therapy. DO NOT TAKE ANY OTHER NSAIDS including ibuprofen, Motrin, Aleve, Naprosyn, while on this course of ibuprofen. Please return to the emergency department if you experience fevers over 100.4?, that are not managed by Tylenol, worsening chest pain, shortness of breath, nausea, vomiting or any new/worsening/concerning symptoms. Prescriptions: New ibuprofen 800 mg tablet 800 mg PO TID 14 Days Qty: 42 0RF colchicine 0.6 mg tablet 0.6 mg PO DAILY 180 Days Qty: 180 0RF omeprazole 20 mg capsule,delayed release(DR/EC) 20 mg PO BID 14 Days Qty: 28 0RF colchicine 0.6 mg capsule 0.6 mg PO DAILY 180 Days Qty: 180 0RF No Action ropinirole 0.5 mg tablet 0.5 mg PO BEDTIME Qty: 90 2RF cholecalciferol (vitamin D3) 50 mcg (2,000 unit) capsule 50 mcg PO DAILY 90 Days Qty: 90 1RF cyanocobalamin (vitamin B-12) 2,500 mcg tablet 2,500 mcg PO DAILY 90 Days Qty: 90 1RF bupropion HCl 300 mg tablet extended release 24 hr 300 mg PO DAILY lovastatin 20 mg tablet 20 mg PO DAILY lamotrigine 250 mg tablet extended release 24hr 500 mg PO DAILY sildenafil 100 mg tablet 100 mg PO DAILY PRN ropinirole 2 mg tablet extended release 24 hr 2 mg PO BEDTIME Qty: 30 6RF gabapentin 300 mg capsule 300 mg PO BID Referrals: [facility] [place] [facility] [Provider Group] Referral Note: acute pericarditis Interventions: ED Discharge Assessment Last Done: 01/14/25 13:34 Discharge Date/Time: 01/14/25 13:40 Print Language: Sammarinese
[2025-01-14 09:09] LABS: COVID-19 Test Negative (Negative); IDNOW Serial# 55D5AD1C; IDNOW Serial# 58CA691E; Influenza B2 Negative (Negative)
[2025-01-14 09:21] LABS: Troponin-I High Sensitivity 3.9 ng/L (<3.5-35.0)
[2025-01-14 12:06] VITALS: BP 109/63; PULSE 60; RESP 14; TEMP 36.5; O2SAT 97
[2025-01-14 13:34] VITALS: BP 109/63; PULSE 60; RESP 14; TEMP 36.5; O2SAT 97
== END 2025-01-14 13:40 | disposition home or self-care (01) ==
PROVIDERS: Emergency Provider Emergency Medicine; PCP Family Medicine
DX: I31.9 Disease of pericardium, unspecified (principal); B34.9 Viral infection, unspecified; R07.9 Chest pain, unspecified; R06.02 Shortness of breath; Z79.899 Other long term (current) drug therapy; Z03.818 Encounter for observation for suspected exposure to other biological agents ruled out
CPT/HCPCS: 36415; 71045; 71046; 80048; 84484; 85025; 85652; 86140; 87502; 87635; 93005; 96374; 96375; 99284; 99285; J0131; J1885

== ENCOUNTER → 2025-01-14 06:10 | Outpatient (BNV) | payer MEDICARE, SELFPAY | PROVIDERS: Emergency Provider Emergency Medicine; PCP Family Medicine; Visit Provider Internal Medicine Cardiovascular Disease | DX: I49.9 Cardiac arrhythmia, unspecified (principal) | CPT/HCPCS: 93010 ==

== ENCOUNTER → 2025-01-14 06:41 | Outpatient (BNV) | payer MEDICARE, SELFPAY | PROVIDERS: Emergency Provider Emergency Medicine; PCP Family Medicine; Visit Provider Radiology Diagnostic Radiology | DX: R06.02 Shortness of breath (principal); R07.9 Chest pain, unspecified | CPT/HCPCS: 71045; 71046 ==

== ENCOUNTER 2025-01-17 10:01 | Inpatient (IN) | payer MEDICARE, SELFPAY ==
--- OUTSIDE RECORDS SUMMARY | 2025-01-12 10:40 | XMS_ITS | Encounter Summary ---
Author Organization [facility] Address [address] [place] [address] Phone Care Team Providers Care Bridge Instructor Name Role Phone Khadra Romo MD Primary Care Provider [phone] John Chopra MD Unavailable [phone] Lenny Pendleton MD Unavailable Encounter Details Date Type Department Care Team (Latest Contact Info) Description 01/12/2025 10:40 AM EDT Telemedicine [facility] [address] [facility] [address] [place] [address] Khadra Romo MD 15 [facility] [address] [place] [address] [email or web address] Hypermagnesemia (Primary Dx); Parkinsonism, unspecified Parkinsonism type; Cervical myelopathy Social History Tobacco Use Types Packs/Day Years Used Date Smoking Tobacco: Never Smokeless Tobacco: Never Alcohol Use Standard Drinks/Week Comments Yes 0 (1 standard drink = 0.6 oz pur e alcohol) Do not drink every week Home Health Assessment: Transportation Answer Date Recorded Lack of Transportation (Medical) No 06/10/2024 Lack of Transportation (Non-Medical) No 06/10/2024 Patient Unable or Declines to Respond No 06/10/2024 Child or Family Care Answer Date Record ed Do you have problems with on e of the following making it difficult for you to work, study, or receive health care? No 06/17/2023 Education Answer Date Recorded Are you interested in more education? Not on moshe e 06/15/2024 Are you concerned about learning? Not on file 06/15/2024 No 06/15/2024 No 06/15/2024 Food Answer Date Recorded Within the past 6 months we worried whether our food would run out before we got money to buy more. Never True 05/28/2024 Within the past 6 months the food we bought just didn't last and we didn't have enough money to get more. Never True Residential Stability Answer Date Recor ded What is your housing situation today? I have moise sing 05/28/2024 How many times have you move d in the past 12 months? Zero (I did not move) 05/28/2024 Paying for Meds Answer Date Recorded Do you have trouble paying for medicines? No 05/28/2024 Paying Utility Bills Answer Date Record ed Do you have trouble paying your heating or elect ricity bill? No 05/28/2024 Transportation Answer Date Recorded Has the lack of transportati on kept you from medical appointments or from getting medications? No 05/28/2024 Unemployment Answer Date Recorded Are you currently unemployed or working on a part-time or temporary basis, and looking for work? No 06/15/2022 Digital Access Answer Date Recorded No 05/28/2024 Yes 05/28/2024 Do you have reliable internet access at home? Ye s 05/28/2024 Do you have a device (e.g., phone, tablet, computer) with a working camera? Yes 05/28/2024 Intimate Partner Violence Answer Date R ecorded Are you denied basic needs s uch as food, clothing, or medical care? No 06/28/2024 In the past 12 months have y ou been in a relationship with a person who hurts, threatens, or tries to control you? No 06/28/2024 Are you denied basic needs s uch as food, clothing, or medical care? No 06/28/2024 In the past 12 months have y ou been in a relationship with a person who hurts, threatens, or tries to control you? No 06/28/2024 Sex and Gender Information Value Date Recorded Sex Assigned at Male 06/12/2021 8:00 AM EST Legal Sex Male 11:53 AM EDT Gender Identity Male 06/12/2021 8:00 AM EST Sexual Orientation Bisexual 06/12/2021 8: 00 AM EST documented as of this encounter Progress Notes * Khadra Romo MD - 01/12/2025 10:40 AM EDT Chilo Lee is a 69 y.o. 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 OPERATOR of vit D as well as some magnesium Reports he failed autonomic testing - will see neuro next month to discuss this, meaning that he has insufficient sweating (he is not aware of this) and orthostatic hypotension (definitely this is feeling worse, but he is able to function) Has a referral to a senior commissary agent who specializes in this but not until August Current Outpatient Medications on File Prior to Visit Medication Sig Dispense Refill Last Dispense dextroamphetamine-amphetamine (ADDERALL) 10 mg Tab tablet (Patient not taking: Reported on 12/20/2024) Unknown (patient-reported) dextroamphetamine-amphetamine (ADDERALL) 20 mg Tab tablet Take 1 tablet by mouth 2 (two) times a day. Unknown (patient-reported) ergocalciferol (VITAMIN D2) 50,000 unit capsule Take by mouth. (Patient not taking: Reported on 12/20/2024) Unknown (patient-reported) gabapentin (NEURONTIN) 300 MG capsule Take 3 capsules (900 mg total) by mouth nightly at bedtime. (Patient not taking: Reported on 01/04/2025) 180 capsule 1 Unknown (outside pharmacy) lamoTRIgine (LAMICTAL) 200 MG IMMEDIATE release tablet Take 200 mg by mouth 2 (two) times a day. 300 mg in the morning and 200 mg bedtime Unknown (patient-reported) lovastatin (MEVACOR) 20 MG tablet Take 1 tablet (20 mg total) by mouth nightly at bedtime. 90 tablet 3 Unknown (outside pharmacy) melatonin [address] 1 tablet (5 mg total) under the tongue nightly at bedtime as needed (insomnia). 90 tablet 1 Unknown (outside pharmacy) omega-3s/dha/epa/fish oil/D3 (VITAMIN-D + OMEGA-3 ORAL) (Patient not taking: Reported on 12/20/2024)Unknown (patient-reported) rOPINIRole (REQUIP) 2 MG tablet Take 2 mg by mouth nightly at bedtime. Unknown (patient-reported) sildenafiL (VIAGRA) 100 mg tablet Take 1 tablet (100 mg total) by mouth daily as needed. 30 tablet 2 Unknown (outside pharmacy) No current facility-administered medications on file prior to visit. Review of Systems See HPI Physical Exam: This was a video-only visit. Assessment & Plan Hypermagnesemia Discussed potential clinical impllications including abnormal bone metabolism, cardiac conduction, neuromuscular weakness (this last one already of grave concern for Chilo given known comorbidities). His vit D level was 57 and my guess is these are connected. I question whether he needs supplementation at all. We discussed how easy it can be to accidentally take too much vit D from multiple different supplements. It's also possible he has a parathyroid disorder. I asked him to stop his MVI for 2weeks and then get the below labs drawn. If he wants to take a B complex, I have no objections, although his B12 level is just over 400 which should be perfectly adequate. Orders: Basic metabolic panel; Future Magnesium; Future Parathyroid hormone (PTH); Future Parkinsonism, unspecified Parkinsonism type Cervical myelopathy I have maintained a long-term, longitudinal relationship with this patient, overseeing care of chronic conditions, including the above conditions. This care relationship has significantly influenced my decision-making and treatment plans during today's encounter. A portion of this note may have been written with voice dictation. Please excuse any resulting typographical errors. Note to patient: The Century Cures Act makes medical notes like these available to patients inthe interest of transparency. However, be advised this is a medical document. It is intended primarily as nivq-ys-nlcx communication. It is written in medical language and may contain abbreviations or verbiage that are unfamiliar. It may appear blunt or direct. This is because medical documents areintended to carry relevant information, facts as evident, and the clinical opinion of the practitioner only as of the time of writing. documented in this encounter Miscellaneous Notes * Assessment & Plan Note - Khadra Romo MD - 01/12/2025 10:40 AM EDT Associated Problem(s): Parkinsonian syndrome * Assessment & Plan Note - Khadra Romo MD - 01/12/2025 10:40 AM EDT Associated Problem(s): Cervical myelopathy documented in this encounter Plan of Treatment Upcoming Encounters Date Type Department Care Team (Late st Contact Info) Description 01/18/2025 1:30 PM EDT Office Visit [facility] [address] [place] [address] Analia Acuña, SHACTOR [address] [place] [address] [email or web address] Baxter, PT 8 [place] [address] 01/19/2025 10:40 AM EDT Office Visit [facility] [address] [facility] [address] [place] [address] Khadra Romo MD 15 [facility] [address] [place] [address] 03/01/2025 Procedure Pass [facility] Endoscopy Admitting Dept Virtual Department 30 [place] [address] 03/01/2025 9:30 AM EDT Hospital Encounter [facility] Endoscopy Admitting Dept Virtual Department 30 [place] [address] Shai Ayon MD [address] [address] 03/01/2025 9:30 AM EDT - 03/01/2025 10:00 AM EDT Surgery [facility] Endoscopy Admitting Dept Virtual Department 30 [place] [address] Shai Ayon MD [address] [address] COLONOSCOPY 04/10/2025 11:00 AM EST Office Visit [facility] [place] Neuromuscular [address], [address] [place] [address] Lenny Pendleton MD [address] [place] [address] [address] [place] [address] [email or web address] 06/09/2025 1:00 PM EST Office Visit [facility] [place] Department of Neurology [address] [facility], 8th Floor, [address] [place] [address] John Chopra MD 55 [place] [address] [email or web address] 07/21/2025 8:40 AM EDT Office Visit [facility] [place] [facility] [address] [facility] [address] [place] [address] Khadra Romo MD 15 [facility] [address] [place] [address] 08/25/2025 11:00 AM EDT Office Visit [facility] [place] Cardiology [address], [address] [place] [address] Clementine Brower MD [address] [place] [address] [email or web address] Scheduled Orders Name Type Priority Associated Diagnoses Orde r Schedule Basic metabolic panel Lab Routine Hypermagnesemia Expected: 01/26/2025, Expires: 02/23/2025 Magnesium Lab Routine Hypermagnesemia Expected: 01/26/2025, Expires: 02/23/2025 Parathyroid hormone (PTH) Lab Routine Hypermagnesemia Expected: 01/26/2025, Expires: 02/23/2025 Scheduled Procedures Name Priority Associated Diagnoses Date/Ti me COLONOSCOPY Screen for colon cancer 03/01/2025 9:30 AM EDT documented as of this encounter Visit Diagnoses Diagnosis Hypermagnesemia- Primary Disorders of magnesium metabolism Parkinsonism, unspecified Parkinsonism type Cervical myelopathy Cervical spondylosis with myelopathy Screen for colon cancer Special screening for malignant neoplasms, colon documented in this encounter Additional Health Concerns Assessment Noted Time PHQ-9 Depression Total Score: 12 024 3:46 PM EST PHQ-2 Depression Total Score: 1 06/28/19 25 2:08 PM EST documented as of this encounter Care Teams Bridge Instructor Relationship Specialty Start Date End Date Khadra Romo MD [address] [place] [address] [email or web address] PCP - General Family Medicine 06/12/21 John Chopra MD 55 [place] [address] [email or web address] Neurology 06/17/23 Rai Pendleton-Alonzo Zelaya MD [address] [place] [address] 820 [place] [address] [email or web address] Neurology 06/17/23 documented as of this encounter Additional Source Comments The information contained in this document represents components of the legal health record. It is not the complete legal health record.[facility]
--- NOTE | ~2025-01-17 | MR_ITS ---
CLINICAL HISTORY: TIA MR Brain without gadolinium Comparison: CT/SR - CT HEAD WITHOUT IV CONTRAST STROKE - 01/17/25 10:28 EDT Findings: No significant atrophy. The ventricles are normal in position with no midline shift or herniation. Solitary very small focus of restricted diffusion involving left posterior frontal cortex close to the posterior aspect of left sylvian fissure. Otherwise normal signal brain parenchyma. No territorial infarct. No intra-axial or extra-axial hemorrhage. No focal mass lesion or mass effect on this unenhanced study. Midline structures are grossly normal. Flow voids are maintained within the major vessels of the base of the brain. Orbital contents are unremarkable. The sinuses and mastoid air cells are clear. No focal bone lesion. IMPRESSION: 1. Solitary very small focus of cortical restricted diffusion in posterior aspect left frontal lobe as described consistent with minimal focal acute ischemia. 2. Otherwise no acute intracranial findings. This document has been electronically signed by: Lucrecia Akins MD on 01/17/2025 19:09:29
--- NOTE | ~2025-01-17 | CT_ITS ---
EXAMINATION: CT HEAD WITHOUT CONTRAST CLINICAL INFORMATION: Stroke protocol COMPARISON: None available. TECHNIQUE: Contiguous axial imaging was performed from the skull base to vertex without intravenous administration of contrast. This CT examination was performed using dose optimization techniques as appropriate, variously including the following: *Automated exposure control *Adjustment of mA and/or kV according to patient size (this includes techniques or standardized protocols for targeted exams where dose is matched to indication/reason for exam; i.e. extremities or head) *Use of iterative reconstruction technique DLP: 739 mGY*cm FINDINGS: There is no acute ischemic change. There is no intracranial hemorrhage. There is no mass-effect or midline shift. Basal cisterns and ventricles are within normal limits for age/cerebral volume. Orbits are symmetrical and unremarkable. Paranasal sinuses and mastoid air cells are pneumatized. There are no bony abnormalities. CT/CT head for STROKE IMPRESSION: No acute intracranial abnormality. This critical result was delivered via [facility] text to IBRAHIMA Silva at 10:51 AM eastern time Electronically signed by: Derek Tristan MD 01/17/2025 10:52 AM EDT
--- NOTE | ~2025-01-17 | CT_ITS ---
EXAMINATION: CT ANGIOGRAM HEAD AND NECK CLINICAL INFORMATION: Stroke protocol. COMPARISON: None available. TECHNIQUE: Noncontrast axial imaging of the head was performed. This was followed by test bolus sequences and head and neck intravenous bolus administration 70mL of Omnipaque 350. Helical imaging was performed in the axial plane from the aortic arch to the skull vertex. The data was processed at the computer engineering technologist's workstation for generation of MIP sequences. Angled MIPs and volume rendered reformatted images were also generated at an offline 3D workstation. Stenoses are assessed in accordance with NASCET criteria unless otherwise indicated. This CT examination was performed using dose optimization techniques as appropriate, variously including the following: *Automated exposure control *Adjustment of mA and/or kV according to patient size (this includes techniques or standardized protocols for targeted exams where dose is matched to indication/reason for exam; i.e. extremities or head) *Use of iterative reconstruction technique DLP: 796 mGy*cm FINDINGS: NECK CTA: -AORTIC ARCH: Normal in caliber. Three-vessel branching pattern. -GREAT VESSEL ORIGINS: Widely patent. No stenosis. -RIGHT COMMON CAROTID ARTERY: Normal in course and caliber to the level of the bifurcation. -CERVICAL RIGHT INTERNAL CAROTID ARTERY: Normal opacification without focal stenosis or occlusion. -LEFT COMMON CAROTID ARTERY: Normal in course and caliber to the level of the bifurcation. -CERVICAL LEFT INTERNAL CAROTID ARTERY: Normal opacification without focal stenosis or occlusion. -CERVICAL RIGHT VERTEBRAL ARTERY: Codominant. Normal in course and caliber into the skull base. -CERVICAL LEFT VERTEBRAL ARTERY: Codominant. Normal in course and caliber into the skull base. OTHER, SOFT TISSUES: -No lymphadenopathy or mass. No abnormal fluid collection or soft tissue swelling. -Normal thyroid. -Imaged superior mediastinal structures normal. -Imaged lung apices clear. 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 CTA OF THE BRAIN: -INTRACRANIAL INTERNAL CAROTID ARTERIES: No focal stenosis or occlusion. Mild atherosclerotic calcifications are present in the right greater than left carotid siphon. -RIGHT ANTERIOR CEREBRAL ARTERY: Normal A1 segment.. Normal arborization of the distal segments. -LEFT ANTERIOR CEREBRAL ARTERY: Normal A1 segment.. Normal arborization of the distal segments. -ANTERIOR COMMUNICATING ARTERY: Normal. -RIGHT MIDDLE CEREBRAL ARTERY: Normal M1 segment of the MCA without focal stenosis or occlusion. Normal bifurcation. Normal arborization of the distal segments. -LEFT MIDDLE CEREBRAL ARTERY: Normal M1 segment of the MCA without focal stenosis or occlusion. Normal bifurcation. Normal arborization of the distal segments. -RIGHT VERTEBRAL ARTERY V4: Normal in course and caliber. Normal PICA branch. -LEFT VERTEBRAL ARTERY V4: Normal in course and caliber. Normal PICA branch. -BASILAR ARTERY: Normal without focal stenosis or occlusion. Normal appearance of the proximal superior cerebellar arteries. Normal basilar tip. -RIGHT POSTERIOR CEREBRAL ARTERY: Normal P1 segment. Normal opacification of the distal VIOLIN TUTOR segments. -LEFT POSTERIOR CEREBRAL ARTERY: Normal P1 segment. Normal opacification of the distal VIOLIN TUTOR segments. -POSTERIOR COMMUNICATING ARTERIES: The right is small but present. Left is not clearly identified. Normal opacification of the superior sagittal, straight, transverse, and sigmoid sinuses. No venous thrombosis. No space-occupying hemorrhage or definite evolving infarct. CT/CT angio head neck STROKE IMPRESSION: CTA NECK: No hemodynamically significant stenosis. CTA HEAD: No hemodynamically significant stenosis. Result delivered via [place] text at 11:07 AM Eastern Time to IBRAHIMA Silva Electronically signed by: Derek Tristan MD 01/17/2025 11:08 AM EDT
[2025-01-17 10:14] VITALS: BP 159/74; PULSE 56; RESP 16; TEMP 36.3; O2SAT 96; BMI 26.2
--- NOTE | 2025-01-17 10:24 | ED.NEUROSD ---
HPI - Neuro Symptoms/Deficit General Chief Complaint: Neuro Symptoms/Deficit Stated Complaint: R arm numbness, disoriented Time Seen by Provider: 01/17/25 10:27 Source: patient and old records reviewed Mode of arrival: ambulatory Limitations: no limitations History of Present Illness ED Provider: JANESSA RIVAS Narrative: 69 yo male with PMH of some form of parkinsons, anxiety, depression, HLD, cognitive disorder, peripheral LE demyelinating neuropathy, here with c/o waking up normal at 630am and then around 8am noting that he felt his R arm wasn't working the way it should. He states he couldn't figure out how to tell him to move his R arm and he couldn't work things like his car browne fob and couldn't figure out how to start the car. He denies anyone seeing him and reporting these symptoms. They have resolved. He has never had a stroke before. He states he was just started on colchicine and ibuprofen after treatment for pericarditis on 01/14. He states he is doing better. He denies any other neuro deficits. Onset (ago): hour(s) (8am today) Time: 08:00 Last Observed Normal: 08:00 Timing confirmed by: other Location: right arm History of same: No Quality: improving Relieving factors: none Exacerbating factors: none Context: sudden onset On Anticoagulants: No Associated symptoms: denies other symptoms Treatments Prior to Arrival: none Related Data Home Medications ?Medication ?Instructions ?Recorded ?Confirmed bupropion HCl 300 mg 24 hr tablet, 300 mg PO DAILY 06/10/21 02/13/23 extended release lovastatin 20 mg tablet 20 mg PO DAILY 06/10/21 02/13/23 lamotrigine 250 mg tablet,extended 500 mg PO DAILY 01/07/22 02/13/23 release 24 hr sildenafil 100 mg tablet 100 mg PO DAILY PRN 02/14/22 02/13/23 gabapentin 300 mg capsule 300 mg PO BID 11/17/24 Previous Rx's ?Medication ?Instructions ?Recorded ropinirole 0.5 mg tablet 0.5 mg PO BEDTIME #90 tabs 12/24/22 ropinirole 2 mg tablet,extended 2 mg PO BEDTIME #30 tabs 02/13/23 release 24 hr cholecalciferol (vitamin D3) 50 50 mcg PO DAILY 90 days #90 caps 04/02/23 mcg (2,000 unit) capsule cyanocobalamin (vitamin B-12) 2,500 mcg PO DAILY 90 days #90 tabs 04/02/23 2,500 mcg tablet colchicine 0.6 mg capsule 0.6 mg PO DAILY 6 months #180 caps 01/14/25 colchicine 0.6 mg tablet 0.6 mg PO DAILY 6 months #180 tabs 01/14/25 ibuprofen 800 mg tablet 800 mg PO TID 14 days #42 tabs 01/14/25 omeprazole 20 mg capsule,delayed 20 mg PO BID 2 weeks #28 caps 01/14/25 release Allergies Allergy/AdvReac Type Severity Reaction Status Date / Time No Known Allergies Allergy Verified 01/17/25 10:19 Review of Systems Review of Systems: Constitutional : No Fever, No Chills, No Fatigue ENT/Mouth : No sore throat, No Rhinorrhea Eyes: No Eye Pain, No Swelling, No Redness Cardiovascular : No Chest Pain, No SOB, No Dyspnea on Exertion Respiratory : No Cough, No Sputum Gastrointestinal : No Nausea, No Vomiting, No Diarrhea, No abdominal Pain Genitourinary : No Dysuria, No Urinary Frequency, No Hematuria, Musculoskeletal : No joint pain, No Myalgias, No Joint Swelling Skin : No Skin Lesions, No rash Neuro : No Weakness, No Numbness, No Dizziness, no Headache Psych : No Anxiety/Panic, No Depression All other systems reviewed and are negative [facility] Past Medical History Attestation statement: The following information was validated with the patient. Source: old records reviewed Medical History Cognitive disorder Back pain Anxiety Depression Hyperlipidemia Non-melanoma skin cancer Surgical History H/O cervical spine surgery History of ear surgery Family History Family History Father Myocardial infarction Family/Other Cancer Family/Other Breast cancer Mother Skin cancer Social History Social History Household Members: Spouse Housing: House Alcohol intake: current Alcohol intake frequency: holidays/special occasions only Alcohol type: beer and hard liquor Patient Tobacco Use Status: Never used Tobacco e-Cigarette/Vaping Use: Never Used Advance Directives: No Advance Directives Information Provided: Yes service: No Current occupational status: employed 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 Oriented X3. No acute distress. Eyes: Pupils equal, round and reactive to light. ENT: Pharynx normal. Neck: Normal inspection. Neck supple. CVS: Normal heart rate and rhythm. Pulses normal. Respiratory: No respiratory distress. Breath sounds normal. Abdomen: Soft and nontender. Skin: Skin warm and dry. Normal skin color. Normal skin turgor. Extremities: No lower extremity edema. No calf ttp Neuro: Oriented X 3. No motor deficit. No sensory deficit. CN2-12 intact Course Course Course Narrative: This is an RME: Additional HPI, ROS, PE not included below will be deferred to primary provider. 10:29 AM 01/17/2025 (Sepiedh Thakkar PA-C): RME assessment and note performed by: Sepideh Thakkar PA-C This is a [id number], with a hx of HLD, orthostatic hypotension, peripheral demyelinating neuropathy, who presents to the ED with concerns of episode of weakness to his right arm which started at 8am this morning. Patient states that while he was walking around this morning he felt sudden heaviness to his right arm, and weakness to his right arm, states that he did not know had to use his keep up, and had difficulty getting into his car. He states that the episode lasted for approximately an hour. He states that he is feeling as though he is back to his baseline. No history of TIA or strokes in the past. No recent head trauma. He is not on anticoagulation. NIH stroke scale 0 Plan: Stroke protocol initiated, patient brought back to the main Medications Administered Discontinued Medications Generic Name Dose Route Start Last Admin Trade Name Rolandq PRN Reason Stop Dose Admin Aspirin 81 mg 01/17/25 11:26 01/17/25 12:18 Aspirin 81 Mg Tab.Chew PO 01/17/25 11:27 81 mg ONCE ONE Administration Medical Decision Making Medical Decision Making MDM Narrative: 69 yo male with PMH of some form of parkinsons, anxiety, depression, HLD, cognitive disorder, peripheral LE demyelinating neuropathy, here with c/o resolved R arm inability to use it and felt like he couldn't get his R arm to do what he needed. On arrival NIH 0 and he has no symptoms. He received stroke protocol will start on aspirin and admit. NIH is 0 he is not a candidate for TNK. Differential Diagnosis Differential Diagnoses: The differential diagnosis associated with the presentation includes TIA Admission/Observation Consideration of admission/observation: Escalation of care including admission/observation considered admit for TIA work pu Consult Healthcare Provider Management of the patient was discussed with: Hospitalist (will admit) Lab Data [facility] Lab Attestation statement: I reviewed the patient's lab results. 01/17/25 10:53 01/17/25 10:53 Labs: Lab Results 01/17/25 01/17/25 01/17/25 Range/Units 10:53 11:25 13:03 WBC 5.2 (4.8-10.8) X10*3/uL RBC 3.89 L (4.60-5.80) X10*6/uL Hgb 12.0 L (14.0-18.0) g/dl Hct 34.9 L (42.0-52.0) % MCV 89.7 (80.0-98.0) fL MCH 30.8 (27.0-33.0) pg MCHC 34.4 (31.0-36.0) g/dl RDW 13.8 (11.0-16.0) % Plt Count 167 (160-400) X10*3/uL MPV 10.7 (9.4-12.4) fL Immature Gran % (Auto) 0.2 (0.0-0.4) % Neut % (Auto) 58.3 (45-73) % Lymph % (Auto) 28.0 (20-40) % [place] % (Auto) 10.8 (2-11) % Eos % (Auto) 2.5 (0-4) % Baso % (Auto) 0.2 (0-2) % Lymph # (Auto) 1.5 (1.2-4.9) X10*3/uL [place] # (Auto) 0.6 (0.1-1.2) X10*3/uL Eos # (Auto) 0.1 (0.0-0.4) X10*3/uL Baso # (Auto) 0.0 (0.0-0.2) X10*3/uL Abs Immat Gran (auto) 0.01 (0.00-0.03) X10*3/uL Absolute Neuts (auto) 3.0 (2.0-8.3) x10*3/uL Absolute Nucleated RBC 0.000 (0.0-0.012) X10*3/uL Nucleated RBC % (auto) 0.0 (0.0-0.2) /100WBC PT 11.4 (10.9-12.4) SEC INR 1.0 (0.9-1.1) APTT 27.2 (26.7-34.1) SEC Sodium 143 (135-145) mmol/L Potassium 3.8 (3.3-5.1) mmol/L Chloride 111 H (96-108) mmol/L Carbon Dioxide 25 (22-29) mmol/L Anion Gap 11 L (12-20) BUN 13 (9-16) mg/dL Creatinine 0.90 (0.5-1.4) mg/dL Estim Creat Clear Calc 83.8 Estimated GFR > 60 Random Glucose 86 (60-115) mg/dL Estimat Average Glucose 117 mg/dL Hemoglobin A1c % 5.7 (<6.0) % Calcium 8.5 (8.4-10.2) mg/dL Troponin I High Sens 60.7 H D 56.9 H (<3.5-35.0) ng/L Triglycerides 85 (<150) mg/dL Cholesterol 138 (<200) mg/dL LDL Cholesterol, Calc 75 (<100) mg/dL HDL Cholesterol 46 (>40) mg/dL Urine Color Yellow Urine Appearance Clear Urine pH 7.5 (5.0-9.0) Ur Specific [place] 1.020 (1.005-1.025) Urine Protein Negative (Neg-Trace) mg/dL Urine Glucose (UA) Negative (Negative) mg/dL Urine Ketones Negative (Negative) mg/dL Urine Blood Negative (Negative) Urine Nitrite Negative (Negative) Ur Leukocyte Esterase Negative (Negative) Independent Interpretation I performed an independent interpretation of an: EKG and CT Scan (normal ) Interpretation: Rate: 53 Rhythm: sinus bradycardia [place]: normal Normal P waves. Normal NAILA. Normal QRS complex. ST T wave : qTC: prior studies: The study has been interpreted contemporaneously by me. . Radiology Impression Discussion of test interpretation with radiology: I have reviewed the radiologist's reading. External Record Review External record reviewed: Outpatient record Discharge Plan Discharge Clinical Impression: Transient cerebral ischemia Qualifiers: Transient cerebral ischemia type: unspecified Qualified Code(s): G45.9 - Transient cerebral ischemic attack, unspecified Patient Disposition: Admitted As Inpatient Print Language: Austrian
--- NOTE | 2025-01-17 10:25 | ECG_ITS ---
Test Reason : ?STROKE Blood Pressure : */* mmHG Vent. Rate : 53 BPM Atrial Rate : 53 BPM P-R Int : 156 ms QRS Dur : 86 ms QT Int : 440 ms P-R-T Axes : 81 66 62 degrees QTcB Int : 412 ms Sinus bradycardia Otherwise normal ECG When compared with ECG of 14-Jan-2025 06:16, ST no longer elevated in Anterior leads Referred By: Sepideh Thakkar Electronically Signed By: GARY TAVERAS
[2025-01-17 11:04] LABS: MANUAL DIFF FLAG NO
[2025-01-17 11:07] VITALS: BP 152/71; PULSE 53; RESP 17; TEMP 36.7; O2SAT 99
[2025-01-17 11:11] LABS: Hematocrit 34.9 % (42.0-52.0); Hemoglobin 12.0 g/dl (14.0-18.0); Imm Gran Abs Auto 0.01 X10*3/uL (0.00-0.03); Imm Gran Pct Auto 0.2 % (0.0-0.4); Lymphocytes Absolute Auto 1.5 X10*3/uL (1.2-4.9); Mean Corpuscular HGB Conc 34.4 g/dl (31.0-36.0); Mean Corpuscular Hemoglobin 30.8 pg (27.0-33.0); Mean Corpuscular Volume 89.7 fL (80.0-98.0); NRBC Abs Auto 0.000 X10*3/uL (0.0-0.012); NRBC Pct Auto 0.0 /100WBC (0.0-0.2); Platelet Count 167 X10*3/uL (160-400); Red Blood Count 3.89 X10*6/uL (4.60-5.80); White Blood Count 5.2 X10*3/uL (4.8-10.8)
[2025-01-17 11:26] LABS: INTERNATIONAL NORM RATIO 1.0 (0.9-1.1); Prothrombin Time 11.4 SEC (10.9-12.4)
[2025-01-17 11:29] LABS: Partial Thromboplastin Time 27.2 SEC (26.7-34.1)
[2025-01-17 11:32] LABS: Appearance Urine Clear; Glucose Urine UA Negative (Negative); PH 7.5 (5.0-9.0); Specific Gravity - Urine 1.020 (1.005-1.025)
[2025-01-17 11:35] LABS: Stroke Lab Use COMPLETE
[2025-01-17 11:46] LABS: Troponin-I High Sensitivity 60.7 ng/L (<3.5-35.0)
[2025-01-17 11:59] LABS: Anion Gap 11 (12-20); Blood Urea Nitrogen 13 mg/dL (9-16); Calcium 8.5 mg/dL (8.4-10.2); Carbon Dioxide 25 mmol/L (22-29); Chloride 111 mmol/L (96-108); Cholesterol 138 mg/dL (<200); Creatinine Clr Calc Pharmacy 83.8; Estimated Glomerular Filt Rate > 60; HDL Cholesterol 46 mg/dL (>40); Potassium 3.8 mmol/L (3.3-5.1); Sodium 143 mmol/L (135-145); Triglycerides 85 mg/dL (<150)
[2025-01-17 12:14] LABS: Hemoglobin A1C 125.1009 umol/L; Total Hemoglobin (HGBA1C) 3181.2252 umol/L
[2025-01-17 13:28] VITALS: BP 149/72; PULSE 51; RESP 18; TEMP 36.5; O2SAT 97
[2025-01-17 13:31] LABS: Troponin-I High Sensitivity 56.9 ng/L (<3.5-35.0)
--- NOTE | 2025-01-17 14:52 | PM.IMHP ---
History of Present Illness Date of Service: 01/17/25 Chief Complaint: Weakness 69-year-old man presented to the ER with complaints of confusion and difficulty using his right arm. He reported he went to see his in-laws and suddenly looked at his right arm and right leg and felt like they were not his. He reported that he could still move them but he had this feeling that the arms and not belong to him. He walked to his car and stated that he was fumbling with the browne fob and had trouble remembering what to do. He reported he wanted to call his but he could not remember how to dial his phone. Upon arrival to the ER head CT was negative for any acute abnormality. All vital stable, labs within acceptable limits, negative UA. Plan will be to place patient on observation for further management of possible TIA. Review of Systems Review of Systems: Denies any recent fever chills or decrease in appetite respiratory denies any shortness of breath or cough cardiovascular denies chest pain gastrointestinal denies any dysphagia abdominal pain nausea vomiting or diarrhea genitourinary denies any dysuria frequency or hematuria musculoskeletal denies any joint pain or swelling neuropsych denies any weakness or seizures all other systems reviewed are negative [facility] Medical History Cognitive disorder Back pain Anxiety Depression Hyperlipidemia Non-melanoma skin cancer Family History Father Myocardial infarction Family/Other Cancer Family/Other Breast cancer Mother Skin cancer Surgical History H/O cervical spine surgery History of ear surgery Social History Household Members: Spouse Housing: House Alcohol intake: current Alcohol intake frequency: holidays/special occasions only Alcohol type: beer and hard liquor Patient Tobacco Use Status: Never used Tobacco e-Cigarette/Vaping Use: Never Used Advance Directives: No Advance Directives Information Provided: Yes service: No Current occupational status: employed 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 Allergies Allergy/AdvReac Type Severity Reaction Status Date / Time No Known Allergies Allergy Verified 01/17/25 10:19 Active Medications: Current Medications Acetaminophen (Acetaminophen 325 Mg Tablet) 650 mg PO Q6H PRN PRN Reason: Pain, Mild 1-3,fever,headache Calcium Carbonate (Calcium Carbonate 750 Mg Tab.Chew) 750 mg PO Q4H PRN PRN Reason: Heartburn Magnesium Hydroxide (Milk Of Magnesia 30 Ml Oral.Susp) 30 ml PO DAILY PRN PRN Reason: Constipation Melatonin (Melatonin 3 Mg Tablet) 6 mg PO BEDTIME PRN PRN Reason: Insomnia Home Medications ?Medication ?Instructions ?Recorded ?Confirmed ?Last Taken ?Type lovastatin 20 mg tablet 20 mg PO DAILY 06/10/21 01/17/25 01/17/25 History dextroamphetamine-amphetamine 20 1 tab PO BID@0800,1200 01/17/25 01/17/25 Unknown History mg tablet lamotrigine 100 mg tablet 300 mg PO DAILY 01/17/25 01/17/25 01/17/25 History lamotrigine 200 mg tablet 200 mg PO BEDTIME 01/17/25 01/17/25 01/16/25 History (Lamictal) melatonin 5 mg disintegrating 5 mg PO BEDTIME PRN insomnia 01/17/25 01/17/25 Unknown History tablet omeprazole 20 mg capsule,delayed 20 mg PO BID@0630,1630 01/17/25 01/17/25 01/17/25 History release Physical Exam Vital Signs and Narrative: Vital Signs: Last Vital Signs Temp 97.7 F 01/17/25 13:28 Pulse 51 01/17/25 13:28 Resp 18 01/17/25 13:28 BP 149/72 H 01/17/25 13:28 Pulse Ox 97 01/17/25 13:28 O2 Del Method Room Air 01/17/25 13:28 BMI result Body Mass Index 26.2 Appearing in no acute distress head is normocephalic atraumatic eyes pupils are PERRLA sclera is anicteric mouth throat mucous membranes are intact and moist neck is supple no lymphadenopathy, no JVD noted lung sounds are clear to auscultation heart regular rate rhythm, clear S1, S2 positive bowel sounds, abdomen is soft, nontender neuro patient is alert x3, no focal deficits Results Labs 01/17/25 10:53 01/17/25 10:53 Labs: Laboratory Results - last 24 hr 01/17/25 01/17/25 01/17/25 10:53 11:25 13:03 MCV 89.7 MCH 30.8 MCHC 34.4 RDW 13.8 Plt Count 167 MPV 10.7 Immature Gran % (Auto) 0.2 Neut % (Auto) 58.3 Lymph % (Auto) 28.0 [place] % (Auto) 10.8 Eos % (Auto) 2.5 Baso % (Auto) 0.2 Lymph # (Auto) 1.5 [place] # (Auto) 0.6 Eos # (Auto) 0.1 Baso # (Auto) 0.0 Abs Immat Gran (auto) 0.01 Absolute Neuts (auto) 3.0 Absolute Nucleated RBC 0.000 Nucleated RBC % (auto) 0.0 PT 11.4 INR 1.0 APTT 27.2 Anion Gap 11 L Estim Creat Clear Calc 83.8 Estimated GFR > 60 Random Glucose 86 Estimat Average Glucose 117 Hemoglobin A1c % 5.7 Calcium 8.5 Troponin I High Sens 60.7 H D 56.9 H Triglycerides 85 Cholesterol 138 LDL Cholesterol, Calc 75 HDL Cholesterol 46 Urine Color Yellow Urine Appearance Clear Urine pH 7.5 Ur Specific [place] 1.020 Urine Protein Negative Urine Glucose (UA) Negative Urine Ketones Negative Urine Blood Negative Urine Nitrite Negative Ur Leukocyte Esterase Negative Imaging Radiologist's Impressions: Impressions Head/Neck CTA 01/17/25 10:27 IMPRESSION: CTA NECK: No hemodynamically significant stenosis. CTA HEAD: No hemodynamically significant stenosis. Result delivered via [place] text at 11:07 AM Eastern Time to Sepideh Thakkar PAC Electronically signed by: Derek Tristan MD 01/17/2025 11:08 AM EDT RP Head CT 01/17/25 10:28 IMPRESSION: No acute intracranial abnormality. This critical result was delivered via [place] text to Sepideh Thakkar PAC at 10:51 AM eastern time Electronically signed by: Derek Tristan MD 01/17/2025 10:52 AM EDT RP Assessment and Plan (1) Transient cerebral ischemia: Qualifiers: Transient cerebral ischemia type: unspecified Qualified Code(s): G45.9 - Transient cerebral ischemic attack, unspecified Status: Acute Plan 69 year old man placed on observation for TIA symptoms Arm weakness Possible TIA Head and neck CTA negative for any significant stenosis Monitor on telemetry Neurology consultation Echo, PT/PT, MRI Pericarditis Diagnosed 01/14/2025 Treated with colchicine and ibuprofen echo Parkinson's disease Supportive care GERD Continue PPI Mental health Continue home medications Restless leg syndrome Continue home medications DVT prophylaxis with Lovenox Full code Quality Stroke Does the patient have a stroke diagnosis?: No VTE Prior VTE?: No VTE Risk Level:: Medical - moderate - high VTE Device Contraindication: Treatment Not Indicated VTE Drug Contraindication: N/A - Med Ordered
--- NOTE | 2025-01-17 15:00 | PC.NURSE ---
Patient ambulated out of bed with steady gait. mission coordinator (Roseanne Montenegro) at bedside with patient at this time. Pt denies complaints at this time.
--- NOTE | 2025-01-17 15:14 | MHC.STROKE ---
met with patient in bed 21. Pt awake, alert and oriented x 4 Denies any symptoms presently. Ambulatory to Br, gait steady Stroke Education reviewed Pamphlet provided. All questions answered. Reviewed medical hx, social hx, medications. Awaiting bed assignment Will Assist as needed.
--- OUTSIDE RECORDS SUMMARY | 2025-01-17 15:49 | XMS_ITS | Encounter Summary ---
Author Organization [facility] Address [address] [facility] [address] [place] [phone] Phone Care Team Providers Care Hotel Night Auditor Name Role Phone Khadra Romo MD Primary Care Provider John Chopra MD Unavailable [phone] Lenny Pendleton MD Unavailable Encounter Details Date Type Department Care Team (Late st Contact Info) Description 11/10/2023 Procedure Pass [facility], [address] [address] Social History Tobacco Use Types Packs/Day Years [...] high school, GED, job training, learning the Spanish language, technical skills, or developing parenting skills)? [...] Description 01/18/2025 1:30 PM EDT Office Visit [facility] [address] [place] [address] [place] [address] Analia Acuña, CPC CODER [address] [facility] [address] [place] [address] [email or web address], [email or web address] [address] [place] [address] 01/19/2025 10:40 AM EDT Office Visit [facility] [place] [facility] [address] [facility] [address] [place] [address] Khadra Romo MD 15 [facility] [address] [place] [address] 03/01/2025 Procedure Pass [facility] Admitting Dept Virtual Department [address] [place] [address] 03/01/2025 9:30 AM EDT Hospital Encounter [facility] Admitting [facility] Virtual Department [address] [place] [address] Shai Ayon MD [address] [address] 03/01/2025 9:30 AM EDT - 03/01/2025 10:00 AM EDT Surgery [facility]oscopy Admitting Dept Virtual Department [address] [place] [address] Shai Ayon MD [address] [address] COLONOSCOPY 04/10/2025 11:00 AM EST Office Visit [facility] Neurology Neuromuscular [address], [address] [place] [address] Lenny Pendleton MD [address] [place] [address] [address] [place] [address] [email or web address] 06/09/2025 1:00 PM EST Office Visit [facility] [place] Department of Neurology [address] [facility] 8th Floor, [address] [place] [address] John Chopra MD [address] [place] [address] [email or web address] 07/21/2025 8:40 AM EDT Office Visit [facility] [place] [facility] [address] [facility] [address] [place] [address] Khadra Romo MD 15 [facility] [address] [place] [address] [email or web address] 08/25/2025 11:00 AM EDT Office Visit [facility] [place] Cardiology [facility] [address] [facility], [address] [place] [address] Clementine Brower MD [address] [place] [phone] [email or web address] Scheduled Procedures Name Priority Associated Diagnoses Date/Ti me COLONOSCOPY Screen for colon cancer 03/01/2025 9:30 AM EDT documented as of this encounter Visit Diagnoses Not on filedocumented in this encounter Additional Health Concerns Assessment Noted Time PHQ-9 Depression Total Score: 12 024 3:46 PM EST PHQ-2 Depression Total Score: 4 06/23/19 24 11:49 PM EST documented as of this encounter Care Teams Hotel Night Auditor Relationship Specialty Start Date End Date Khadra Romo MD 15 [facility] [address] [place] [address] [email or web address] PCP - General Family Medicine 06/12/21 John Chopra MD [address] [place] [address] [email or web address] 06/17/23 Lenny Pendleton MD [address] [place] [address] [address] [place] [address] [email or web address] 06/17/23 documented as of this encounter Additional Source Comments The information contained in this document represents components of the legal health record. It is not the complete legal health record.[facility]
--- OUTSIDE RECORDS SUMMARY | 2025-01-17 15:49 | XMS_ITS | Encounter Summary ---
Author Organization [facility] Address [address] [facility] [address] [place] [address] Phone Care Team Providers Care Ginning Operator Name Role Phone Khadra Romo MD Primary Care Provider John Chopra MD Unavailable [phone] Rai Pendleton-Alonzo Zelaya MD Unavailable Encounter Details Date Type Department Care Team (Late st Contact Info) Description 01/16/2025 Orders Only [facility] Family Medicine [address] [place] [address] Unknown, Unknown, Social History Tobacco Use Types Packs/Day Years [...] Visit [facility] 8 [place] [address] Analia Acuña, AUTOMOTIVE DIAGNOSTIC TECHNICIAN [address] [address] [email or web address] Baxter, PT 8 [place] [address] 01/19/2025 10:40 AM EDT Office Visit [facility] [place] Primary [facility] 15 [facility] [address] [place] [address] Khadra Romo MD 15 [facility] [address] [place] [address] 03/01/2025 Procedure Pass [facility] Endoscopy Admitting Dept Virtual Department [address] [place] [address] 03/01/2025 9:30 AM EDT Hospital Encounter [facility] Endoscopy Admitting Dept Virtual Department [address] [place] [address] Shai Ayon MD [address] [address] 03/01/2025 9:30 AM EDT - 03/01/2025 10:00 AM EDT Surgery [facility] Endoscopy Admitting Dept Virtual Department [address] [place] [address] Shai Ayon MD [address] [address] COLONOSCOPY 04/10/2025 11:00 AM EST Office Visit [facility] Neurology Neuromuscular [place] 52 [facility], [address] [place] [address] Lenny Pendleton MD 165 [facility] [address] [place] [address] [email or web address] 06/09/2025 1:00 PM EST Office Visit [facility] Department of Neurology 55 [facility], 8th Floor, [address] [place] [address] John Chopra MD 55 [place] [address] [email or web address] 07/21/2025 8:40 AM EDT Office Visit [facility] Primary Care 15 [facility] [address] [place] [address] Khadra Romo MD 15 [facility] [address] [place] [address] [email or web address] 08/25/2025 11:00 AM EDT Office Visit [facility] Cardiology [facility] 52 [facility], [address] [place] [address] Clementine Brower MD [address] [place] [address] [email or web address] Scheduled Procedures Name Priority Associated Diagnoses Date/Ti me COLONOSCOPY Screen for colon cancer 03/01/2025 9:30 AM EDT documented as of this encounter Procedures Procedure Name Priority Date/Time Associated Diagnosis Comments OUTSIDE IMAGING Routine 01/14/2025 9:50 AM EDT OUTSIDE IMAGING Routine 01/14/2025 9:47 AM EDT documented in this encounter Results * Outside Imaging Report Only (01/14/2025 9:50 AM EDT) us Unknown Unknown MD IMG XR CHEST Edited Result - Final * Outside Imaging Report Only (01/14/2025 9:47 AM EDT) us Unknown Unknown IMG XR CHEST Edited Result - Final documented in this encounter Visit Diagnoses Not on filedocumented in this encounter Additional Health Concerns Assessment Noted Time PHQ-9 Depression Total Score: 12 06/17/ 024 3:46 PM EST PHQ-2 Depression Total Score: 1 06/28/19 25 2:08 PM EST documented as of this encounter Care Teams Ginning Operator Relationship Specialty Start Date End Date Khadra Romo MD 15 [facility] 201 [place] [address] [email or web address] PCP - General Family Medicine 06/12/21 John Chopra MD 55 [place] [address] [email or web address] 06/17/23 Lneny Pendleton MD 165 [facility] 820 [place] [address] [email or web address] [email or web address] 06/17/23 documented as of this encounter Additional Source Comments The information contained in this document represents components of the legal health record. It is not the complete legal health record.[facility]
--- OUTSIDE RECORDS SUMMARY | 2025-01-17 15:49 | XMS_ITS | Encounter Summary ---
Author Organization [facility] Address [address] [facility] [address] [place] [address] Phone Care Team Providers Care Tax Manager Public Name Role Phone Khadra Romo MD Primary Care Provider [phone] John Chopra MD Unavailable [phone] Lenny Pendleton MD Unavailable Reason for Visit * Reason Onset Date Comments Red Call Sudden Altered mental status 01/17/2025 Encounter Details Date Type Department Care Team (Late st Contact Info) Description 01/17/2025 Telephone [employer] [facility] Primary Care 15 [facility] [address] [place] [address] Khadra Romo MD 15 [facility] [address]ny[address] [place] [address] [email or web address] Red Call Sudden Altered mental status Social History Tobacco Use Types Packs/Day Years [...] as of this encounter Progress Notes * Afia Valencia RN - 01/17/2025 11:05 AM EDT Received callback from Ольга GARLAND. Pt is at the [facility] ED at this time. * Afia Valencia RN - 01/17/2025 11:02 AM EDT Received callback from Ольга GARLAND. They have ambulance and cruiser on scene but nobody is answeringthe door. They requested pt and 's phone number, which were provided. * Afia Valencia RN - 01/17/2025 10:37 AM EDT Called pt. Call went directly to voicemail. Advised pt to call 911 immediately as he could be experiencing a stroke. Advised pt not to drive. Also left pt gateway message. Called Ольга GARLAND at [phone]. Unable to determine correct dept. Called 911. Dispatcher transferred t/w to correct department. Advised of below and requested safetycheck. They will check on pt. FYI to PCP. * Jazmin Mark - 01/17/2025 10:30 AM EDT PT lvm on the triage line reports that today he had a sudden onset altermed mental status where he forgot how to use his keys to get in the door, and also has some numbness on his r arm it felt like it was not his arm and hand. Please advise. CSS Agent (Please do not reply to this user, as this inbox is not monitored. Thank you.) Thank you. documented in this encounter Plan of Treatment Upcoming Encounters Date Type Department Care Team (Late st Contact Info) Description 01/18/2025 1:30 PM EDT Office Visit [facility] Rehabilitation Services 8 [place] [address] Analia Acuña, ASSISTANT TO THE PRESIDENT [address] [address] [email or web address] Baxter, PT 8 [place] [address] 01/19/2025 10:40 AM EDT Office Visit [facility] [place] Primary Care 15 [facility] [address] [place] [address] Khadra Romo MD 15 [facility] Sonny. [address] [place] [address] 03/01/2025 Procedure Pass [facility] Endoscopy Admitting Dept Virtual Department [address] [place] [address] 03/01/2025 9:30 AM EDT Hospital Encounter [facility] Endoscopy Admitting Dept Virtual Department 30 [place] [address] Shai Ayon MD [address] [id number] 03/01/2025 9:30 AM EDT - 03/01/2025 10:00 AM EDT Surgery [facility] Endoscopy Admitting Dept Virtual Department [address] [place] [address] Shai Ayon MD 10 [facility] 2 [place] [address] [email or web address] COLONOSCOPY 04/10/2025 11:00 AM EST Office Visit [facility] Neurology Neuromuscular [place] 52 [facility], [address] [place] [address] Lenny Pendleton MD 165 [facility] [address] [place] [address] [email or web address] 06/09/2025 1:00 PM EST Office Visit [facility] Department of Neurology 55 [facility], 8th Floor, [address] [place] [address] John Chopra MD 55 [place] [address] [email or web address] 07/21/2025 8:40 AM EDT Office Visit [facility] [place] Primary Care 15 [facility] [address] [place] [address] Khadra Romo MD 15 [facility] [address]ny[address] 201 [place] [address] 08/25/2025 11:00 AM EDT Office Visit [facility] Cardiology [facility] 52 [facility], [address] [place] [address] Clementine Brower MD [address] [place] [address] [email or web address] Scheduled Procedures Name Priority Associated Diagnoses Date/Ti wi COLONOSCOPY Screen for colon cancer 03/01/2025 9:30 AM EDT documented as of this encounter Visit Diagnoses Not on filedocumented in this encounter Additional Health Concerns Assessment Noted Time PHQ-9 Depression Total Score: 12 06/17/ 024 3:46 PM EST PHQ-2 Depression Total Score: 1 06/28/19 25 2:08 PM EST documented as of this encounter Care Teams Tax Manager Public Relationship Specialty Start Date End Date Khadra Romo MD 15 [facility] 201 [place] [address] [email or web address] PCP - General Family Medicine 06/12/21 John Chopra MD [address] [place] [address] [email or web address] Neurology 06/17/23 Rai Pendleton-Alonzo Zelaya MD [address] [place] [address] 820 [place] [address] [email or web address] 06/17/23 documented as of this encounter Additional Source Comments The information contained in this document represents components of the legal health record. It is not the complete legal health record.[facility]
--- OUTSIDE RECORDS SUMMARY | 2025-01-17 15:49 | XMS_ITS | Encounter Summary ---
Author Organization [facility] Address [address] [facility] [address] [place] [address] Phone Care Team Providers Care Production Control Coordinator Name Role Phone Khadra Romo MD Primary Care Provider [phone] John Chopra MD Unavailable [phone] Lenny Pendleton MD Unavailable Reason for Visit * Reason Onset Date Comments Patient Returned Call 01/16/2025 Encounter Details Date Type Department Care Team (Late st Contact Info) Description 01/16/2025 Telephone [facility] SUPPORT 2 [place], [place] [phone] Maddison Irizarry CNP 2 [place] [address] [email or web address] Patient Returned Call Social History Tobacco Use Types Packs/Day Years [...] as of this encounter Progress Notes * Bev Park LPN - 01/16/2025 2:44 PM EDT S/W Chilo, he is feeling fine currently, no concerns. Has called [facility] cardiology to request appointment, has not heard back yet. Was not happy with [facility] and would like to proceed with [facility]. F/U appt scheduled for 01/19 with PCP. ED notes in Media. * Jazmin Mark - 01/16/2025 2:25 PM EDT PT lvm on the triage line returning phone call to RN CSS Agent (Please do not reply to this user, as this inbox is not monitored. Thank you.) Thank you. * Maddison Irizarry CNP - 01/16/2025 11:52 AM EDT Pt seen in the ED for pericarditis. He was given referral to cardiology at that time, but he shouldalso follow-up with PCP. Can you please schedule follow-up visit for patient over the next week? Thanks, Maddison Irizarry NP Virtual Clinic Support 01/16/25 11:52 AM documented in this encounter Plan of Treatment Upcoming Encounters Date Type Department Care Team (Late st Contact Info) Description 01/18/2025 1:30 PM EDT Office Visit [facility] [address] [place] [address] [place] [address] Analia Acuña FNP [address] [place] [address] [email or web address] Baxter, PT 8 [place] [address] 01/19/2025 10:40 AM EDT Office Visit [facility] [place] Primary Care 15 [facility] [address] [place] [address] Khadra Romo MD 15 [facility] [address]ny. 201 [place] [address] 03/01/2025 Procedure Pass [facility] Endoscopy Admitting Dept Virtual Department [address] [place] [address] 03/01/2025 9:30 AM EDT Hospital Encounter [facility] Endoscopy Admitting Dept Virtual Department [address] [place] [address] Shai Ayon MD [address] [address] 03/01/2025 9:30 AM EDT - 03/01/2025 10:00 AM EDT Surgery [facility] Endoscopy Admitting Dept Virtual Department [address] [place] [address] Shai Ayon MD [address] [address] COLONOSCOPY 04/10/2025 11:00 AM EST Office Visit [facility] Neurology Neuromuscular [address], [address] [place] [address] Lenny Pendleton MD [address] [place] [address] [address] [place] [address] [email or web address] 06/09/2025 1:00 PM EST Office Visit [facility] Department of Neurology 55 [facility], 8th Floor, [address] [place] [address] John Chopra MD 55 [place] [address] [email or web address] 07/21/2025 8:40 AM EDT Office Visit [facility] [place] Primary Care 15 [facility] [address] [place] [address] Khadra Romo MD 15 [facility] [address]ny[address] 201 [place] [address] [email or web address] 08/25/2025 11:00 AM EDT Office Visit [facility] Cardiology [facility] [address] [facility], [address] [place] [address] Clementine Brower MD [address] [place] [address] [email or web address] Scheduled Procedures Name Priority Associated Diagnoses Date/Ti me COLONOSCOPY Screen for colon cancer 03/01/2025 9:30 AM EDT documented as of this encounter Visit Diagnoses Not on filedocumented in this encounter Additional Health Concerns Assessment Noted Time PHQ-9 Depression Total Score: 12 06/17/ 024 3:46 PM EST PHQ-2 Depression Total Score: 1 06/28/19 25 2:08 PM EST documented as of this encounter Care Teams Production Control Coordinator Relationship Specialty Start Date End Date Khadra Romo MD 15 [facility] [address] [place] [address] [email or web address] PCP - General Family Medicine 06/12/21 John Chopra MD 55 [place] [address] [email or web address] [email or web address] 06/17/23 Lenny Pendleton MD [address] [place] [address] [address] [place] [phone] [email or web address] [email or web address] 06/17/23 documented as of this encounter Additional Source Comments The information contained in this document represents components of the legal health record. It is not the complete legal health record.[facility]
--- OUTSIDE RECORDS SUMMARY | 2025-01-17 15:50 | XMS_ITS | Encounter Summary ---
Author Organization [facility] Address 399 [facility] [address] [place] [address] Phone Care Team Providers Care Superintendent Drivers Name Role Phone Khadra Romo MD Primary Care Provider [phone] John Chopra MD Unavailable [phone] Lenny Pendleton MD Unavailable Reason for Visit * Reason Onset Date Comments Labs Only 12/23/2024 Encounter Details Date Type Department Care Team (Late st Contact Info) Description 12/23/2024 Telephone [facility] Primary Care 15 [facility] [address] [place] [address] Khadra Romo MD 15 [facility] [address] [place] [address] [email or web address] Labs Only Social History Tobacco Use Types [...] 4:33 PM EDT Yes please * Afia Valencia RN - 12/23/2024 10:[address] Simons psych provider from [facility] stating he has abnormal labs he wants to fax to PCP ( elevated Mg). Looking for fax number which was provided. FYI to PCP re labs documented in this encounter Plan of Treatment Upcoming Encounters Date Type Department Care Team (Late st Contact Info) Description 01/18/2025 1:30 PM EDT Office Visit [facility] Rehabilitation Services 8 [place] [address] Analia Acuña, GRADE TEACHER [address] [address] [email or web address] Ariadne Greene, PT 8 [place] [address] 01/19/2025 10:40 AM EDT Office Visit [facility] [place] Primary Care 15 [facility] [address] [place] [address] Khadra Romo MD 15 [facility] [address] [place] [address] 03/01/2025 Procedure Pass [facility] Endoscopy Admitting Dept Virtual Department 30 [place] [address] 03/01/2025 9:30 AM EDT Hospital Encounter [facility] Endoscopy Admitting Dept Virtual Department 30 [place] [address] Shai Ayon MD [address] [address] 03/01/2025 9:30 AM EDT - 03/01/2025 10:00 AM EDT Surgery [facility] Endoscopy Admitting Dept Virtual Department 30 [place] [address] Shai Ayon MD [address] [address] COLONOSCOPY 04/10/2025 11:00 AM EST Office Visit [facility] Neurology Neuromuscular [address], [address] [place] [address] Lenny Pendleton MD [address] [place] [address] [address] [place] [address] [email or web address] 06/09/2025 1:00 PM EST Office Visit [facility] Department of Neurology 55 [facility], 8th Floor, [address] [place] [address] John Chopra MD 55 [place] [address] [email or web address] 07/21/2025 8:40 AM EDT Office Visit [facility] [place] Primary Care 15 [facility] [address] [place], [place] [address] Khadra Romo MD 15 [facility] [address] [place] [address] [email or web address] 08/25/2025 11:00 AM EDT Office Visit [facility] Cardiology [facility] 52 [facility], [address] [place] [address] Clementine Brower MD [address] [place] [address] [email or web address] Scheduled Procedures [...] documented as of this encounter Care Teams Superintendent Drivers Relationship Specialty Start Date End Date Khadra Romo MD [address] [place] [address] [address] [place] [address] [email or web address] PCP - General Family Medicine 06/12/21 John Chopra MD 55 [place] [address] [email or web address] Neurology 06/17/23 Lenny Pendleton MD [address] [place] [address] 820 [place] [address] [email or web address] Neurology 06/17/23 documented as of this encounter Additional Source Comments The information contained in this document represents components of the legal health record. It is not the complete legal health record.[facility]
--- OUTSIDE RECORDS SUMMARY | 2025-01-17 15:50 | XMS_ITS | Encounter Summary ---
Author Organization [facility] Address 399 [facility] [address] [place] [address] Phone Care Team Providers Care Online Content Editor Name Role Phone Khadra Romo MD Primary Care Provider [phone] John Chopra MD Unavailable [phone] Lenny Pendleton MD Unavailable Encounter Details Date Type Department Care Team (Late st Contact Info) Description 01/21/2024 Transcribe Orders [facility] Specimen Processing 30 [place] [address] Khadra Romo MD 15 [facility] [address]ny[address] [place] [address] Social History Tobacco Use Types Packs/Day Years [...] high school, GED, job training, learning the Belgian language, technical skills, or developing parenting skills)? [...] Description 01/18/2025 1:30 PM EDT Office Visit [facility] Rehabilitation Services 8 [place] [address] Analia Acuña, FELIZ [address] [address] [email or web address] Baxter, PT 8 [place] [address] 01/19/2025 10:40 AM EDT Office Visit [facility] [place] Primary Care 15 [facility] [address] [place] [address] Khadra Romo MD 15 [facility] [address] [place] [address] 03/01/2025 Procedure Pass [facility] Endoscopy Admitting Dept Virtual Department [address] [place] [address] 03/01/2025 9:30 AM EDT Hospital Encounter [facility] Endoscopy Admitting Dept Virtual Department 30 [place] [address] Shai Ayon MD [address] [address] 03/01/2025 9:30 AM EDT - 03/01/2025 10:00 AM EDT Surgery [facility] Endoscopy Admitting Dept Virtual Department [address] [place] [address] Shai Ayon MD [address] [address] COLONOSCOPY 04/10/2025 11:00 AM EST Office Visit [facility] Neurology Neuromuscular [address] [place] [address] Lenny Pendleton MD 165 [facility] [address] [place] [address] [email or web address] 06/09/2025 1:00 PM EST Office Visit [facility] Department of Neurology 55 [facility], 8th Floor, [address] [place] [address] John Chopra MD 55 [place] [address] [email or web address] 07/21/2025 8:40 AM EDT Office Visit [facility] [place] Primary Care [address] [place] [address] 201 [place] [address] Khdara Romo MD [address] [place] [address] 201 [place] [address] [email or web address] 08/25/2025 11:00 AM EDT Office Visit [facility] Cardiology [facility] 52 [facility], [address] [place] [address] Clementine Brower MD [address] [place] [address] [email or web address] Scheduled Procedures Name Priority Associated Diagnoses Date/Ti ri COLONOSCOPY Screen for colon cancer 03/01/2025 9:30 AM EDT documented as of this encounter Visit Diagnoses Not on filedocumented in this encounter Additional Health Concerns Assessment Noted Time PHQ-9 Depression Total Score: 12 024 3:46 PM EST PHQ-2 Depression Total Score: 4 06/23/19 24 11:49 PM EST documented as of this encounter Care Teams Online Content Editor Relationship Specialty Start Date End Date Khadra Romo MD [address] [place] [address]. 201 [place] [address] [email or web address] PCP - General Family Medicine 06/12/21 John Chopra MD 55 [place] [address] [email or web address] [email or web address] 06/17/23 Rai Pendleton-Alonzo Zelaya MD [address] [place] [address] 820 [place] [address] [email or web address] [email or web address] 06/17/23 documented as of this encounter Additional Source Comments The information contained in this document represents components of the legal health record. It is not the complete legal health record.[facility]
--- OUTSIDE RECORDS SUMMARY | 2025-01-17 15:50 | XMS_ITS | Encounter Summary ---
Author Organization [facility] Address [address] [place] [address] Phone Care Team Providers Care Security Researcher Name Role Phone Khadra Romo MD Primary Care Provider [phone] John Chopra MD Unavailable [phone] Lenny Pendleton MD Unavailable Encounter Details Date Type Department Care Team (Late st Contact Info) Description 05/27/2024 Procedure Pass [facility] PERIOPERATIVE DEPT [address] [place] [phone] Social History Tobacco Use Types Packs/Day Years [...] high school, GED, job training, learning the Serbian language, technical skills, or developing parenting skills)? [...] 05/27/2024 1:00 PM Vonnie Kim RN * [place] Suicide Severity Rating Scale (Screener/Recent Self-Report) Question [...] Description 01/18/2025 1:30 PM EDT Office Visit [facility] Services 8 [place] [address] Analia Acuña FNP [address] [place] [address] [email or web address] Ariadne Greene, PT 8 [place] [address] 01/19/2025 10:40 AM EDT Office Visit [facility] [place] [facility] 15 [facility] [address] [place] [address] Khadra Romo MD 15 [facility] Sonny. [address] [place] [address] 03/01/2025 Procedure Pass [facility] Admitting Dept Virtual Department [address] [place] [address] 03/01/2025 9:30 AM EDT Hospital Encounter [facility] Endoscopy Admitting Dept Virtual Department 30 [place] [address] Shai Ayon MD [address] [place] [address] 03/01/2025 9:30 AM EDT - 03/01/2025 10:00 AM EDT Surgery [facility] Endoscopy Admitting Dept Virtual Department 30 [place] [address] Shai Ayon MD 10 [facility] 2 [place] [address] COLONOSCOPY 04/10/2025 11:00 AM EST Office Visit [facility] Neurology Neuromuscular [address], [address] [place] [address] Lenny Pendleton MD 165 [facility] [address] [place] [address] [email or web address] 06/09/2025 1:00 PM EST Office Visit [facility] Department of Neurology 55 [facility], 8th Floor, [address] [place] [address] John Chopra MD 55 [place] [address] [email or web address] 07/21/2025 8:40 AM EDT Office Visit [facility] [place] [facility] 15 [facility] [address] [place] [address] Khadra Romo MD 15 [facility] Sonny. 201 [place] [address] [email or web address] 08/25/2025 11:00 AM EDT Office Visit [facility] Cardiology [facility] [address] [facility], [address] [place] [address] Clementine Brower MD [address] [place] [address] [email or web address] Scheduled Procedures Name Priority Associated Diagnoses Date/Ti sd COLONOSCOPY Screen for colon cancer 03/01/2025 9:30 AM EDT documented as of this encounter Visit Diagnoses Not on filedocumented in this encounter Additional Health Concerns Assessment Noted Time PHQ-9 Depression Total Score: 12 024 3:46 PM EST PHQ-2 Depression Total Score: 4 06/23/19 24 11:49 PM EST documented as of this encounter Care Teams Security Researcher Relationship Specialty Start Date End Date Khadra Romo MD [address] [address] [email or web address] PCP - General Family Medicine 06/12/21 John Chopra MD 55 [place] [address] [email or web address] 06/17/23 Lenny Pendleton MD [address] [place] [address] [address] [place] [address] [email or web address] 06/17/23 documented as of this encounter Additional Source Comments The information contained in this document represents components of the legal health record. It is not the complete legal health record.[facility]
--- OUTSIDE RECORDS SUMMARY | 2025-01-17 15:50 | XMS_ITS | Encounter Summary ---
Author Organization [employer] [facility] Address [address] [employer] [address] [facility] [place] [address] [place] [address] Phone Care Team Providers Care Heel Pricker Name Role Phone Khadra Romo MD Primary Care Provider [phone] Pcp, Unknown Unavailable Unavailable John Chopra MD Unavailable [phone] Lenny Pendleton MD Unavailable Encounter Details Date Type Department Care Team (Late st Contact Info) Description 11/22/2022 Procedure Pass [facility], [address] [address] Social History Tobacco Use Types Packs/Day Years [...] high school, GED, job training, learning the Mauritian language, technical skills, or developing parenting skills)? [...] Description 01/18/2025 1:30 PM EDT Office Visit [facility] Rehabilitation Services 8 [place] [address] nAalia Acuña, BANQUET CHEF [address] [address] [email or web address] Riley, PT 8 [place] [address] 01/19/2025 10:40 AM EDT Office Visit [facility] [place] [facility] 15 [facility] [address] [place] [address] Khadra Romo MD 15 [facility] Sonny. 201 [place] [address] 03/01/2025 Procedure Pass [facility] Endoscopy Admitting Dept Virtual Department [address] [place] [address] 03/01/2025 9:30 AM EDT Hospital Encounter [facility] Endoscopy Admitting Dept Virtual Department [address] [place] [address] Shai Ayon MD [address] [address] 03/01/2025 9:30 AM EDT - 03/01/2025 10:00 AM EDT Surgery [facility] Endoscopy Admitting Dept Virtual Department [address] [place] [address] Shai Ayon MD [address] [place] [address] [email or web address] COLONOSCOPY 04/10/2025 11:00 AM EST Office Visit [facility] Neurology Neuromuscular [address], [address] [place] [address] Lenny Pendleton MD [address] [place] [address] [address] [place] [address] [email or web address] 06/09/2025 1:00 PM EST Office Visit [facility] Department of Neurology 55 [facility], 8th Floor, [address] [place] [address] John Chopra MD 55 [place] [address] [email or web address] 07/21/2025 8:40 AM EDT Office Visit [facility] [place] [facility] 15 [facility] [address] [place] [address] Khadra Romo MD 15 [facility] 201 [place] [address] [email or web address] 08/25/2025 11:00 AM EDT Office Visit [facility] Cardiology [address], [address] [place] [address] Clementine Brower MD [address] [place] [address] [email or web address] Scheduled Procedures Name Priority [...] documented as of this encounter Care Teams Heel Pricker Relationship Specialty Start Date End Date Khadra Romo MD 15 [facility]. 201 [place] [address] [email or web address] PCP - General Family Medicine 06/12/21 Pcp, Unknown 01/28/21 06/16/23 John Chopra MD [address] [place] [address] [email or web address] Neurology 06/17/23 Rai Pendleton-Alonzo Zelaya MD [address] [place] [address] 820 [place] [address] [email or web address] [email or web address] 06/17/23 documented as of this encounter Additional Source Comments The information contained in this document represents components of the legal health record. It is not the complete legal health record.[facility]
--- OUTSIDE RECORDS SUMMARY | 2025-01-17 15:50 | XMS_ITS | Clinical Summary ---
Author Organization [facility] Address [address] [address] Phone Care Team Providers Care Iron Miner Blasting Name Role Phone Khadra Romo MD Primary Care Provider [phone] John Chopra MD Unavailable [phone] Lenny Pendleton MD Unavailable Allergies No known [...] for him to see Dr. Brower in [place] Cervical myelopathy 05/27/2024 Assessment & Plan (01/12/2025 [...] future, such as a planned trip to [place] that he mentioned, he should make his [...] Encounters Date Type Department Care Team Description 01/17/2025 Telephone [facility] Primary Care [address] [place] [address] [address] [place] [address] Khadra Romo MD Red Call Sudden Altered mental status 01/16/2025 Telephone [facility] SUPPORT 2 [place] [address] Maddison Irizarry, LINDA Patient Returned Call 01/16/2025 Orders Only [facility] Family Medicine [address] [place] [address] [place] [address] Unknown, Unknown, 01/12/2025 10:40 AM EDT Telemedicine [facility] Primary Care [address] [place] [address] [address] [place] [address] Khadra Romo MD Hypermagnesemia (Primary Dx); Parkinsonism, unspecified Parkinsonism type; Cervical myelopathy 12/23/2024 Telephone [facility] Primary Care [address] [place] [address] [address] [place] [address] Khadra Romo MD Labs Only 12/20/2024 1:30 PM EDT Office Visit [facility] [address] 3rd Floor, [address] [place] [address] Laura Ayala CNP Orthostatic hypotension (Primary Dx); Lightheadedness; Cold feet 12/08/2024 3:30 PM EDT Telemedicine [facility] Department of Neurology [address] [facility], 8th Floor, [address] [place] [address] John Chopra MD Dysautonomia (Primary Dx); Cognitive decline; Restless leg syndrome; REM sleep behavior disorder; Orthostatic hypotension 11/24/2024 Orders Only [facility] [address] [place] [address] Unknown, Unknown, 11/22/2024 7:40 AM EDT - 11/22/2024 11:59 PM EDT Hospital Encounter [facility] [address] [place] [address] [place] [address] Aryan Perry MD Discharge Disposition: Home or Self Care 11/18/2024 Orders Only [address] [place] [address] Unknown, Unknown, 11/08/2024 8:30 AM EDT Office Visit [facility] [address] [place] [address] Analia Acuña FNP Johndrow, Jennifer, SIENA Neck pain (Primary Dx) 11/02/2024 1:20 PM EDT - 11/02/2024 11:59 PM EDT Hospital Encounter Non-Invasive Cardiology [address] [place] [address] Aryan Perry MD Discharge Disposition: Home or Self Care 10/21/2024 11:45 AM EDT Office Visit [facility] [address] [place] [address] Analia Acuña FNP Johndrow, Jennifer, PT Neck pain (Primary Dx) from Last 3 Months Immunizations Immunization Administration Dates Next Due [id number] FORMULATION 05/28/2009 Hepatitis A, Adult 08/19/2023 Hepatitis [...] Description 01/18/2025 1:30 PM EDT Office Visit [facility] Rehabilitation Services 8 [place] [address] Analia Acuña, FELIZ [address] [place] [address] [email or web address] Baxter, PT 8 [place] [address] 01/19/2025 10:40 AM EDT Office Visit [facility] [place] [facility] [address] [facility] [address] [place] [address] Khadra Romo MD 15 [facility] Sonny. [address] [place] [address] 03/01/2025 Procedure Pass [facility] Endoscopy Admitting Dept Virtual Department 30 [place] [address] 03/01/2025 9:30 AM EDT Hospital Encounter [facility] Endoscopy Admitting Dept Virtual Department 30 [place] [address] Shai Ayon MD [address] [address] 03/01/2025 9:30 AM EDT - 03/01/2025 10:00 AM EDT Surgery [facility] Endoscopy Admitting Dept Virtual Department 30 [place] [address] Shai Ayon MD [address] [address] COLONOSCOPY 04/10/2025 11:00 AM EST Office Visit [facility] Neurology Neuromuscular [address], [address] [place] [address] Lenny Pendleton MD [address] [place] [address] [address] [place] [address] [email or web address] 06/09/2025 1:00 PM EST Office Visit [facility] Department of Neurology [address] [facility], 8th Floor, [address] [place] [address] John Chopra MD 55 [place] [address] [email or web address] 07/21/2025 8:40 AM EDT Office Visit [facility] [place] [facility] [address] [facility] [address] [place] [address] Khadra Romo MD 15 [facility] Sonny. 201 [place] [address] 08/25/2025 11:00 AM EDT Office Visit [facility] Cardiology [facility] 52 [facility], [address] [place] [address] Clementine Brower MD [address] [place] [address] [email or web address] Scheduled Procedures Name Priority Associated Diagnoses Date/Ti [...] this topic Medical Devices Implanted Type Area Class C Truck Driver Device Identifier Shelf Expiration Date Model / Serial / Lot Cranial Plate [id number] 20 Hole Bone Mandibular Trauma Adaption Straight Titanium - [id number] Implanted:Qty: 1 on 05/27/2024 by Margoth Velásquez MD at [facility] N/A: Posterior Cervical [employer] 449.020 / / Screw Bone 2x5mm Cortex Titanium Self Drilling Plusdrive Recess Single - [id number] Implanted:Qty: 3 on 05/27/2024 by Margoth Velásquez MD at [facility] N/A: Posterior Cervical [employer] 401.062E / / Screw Bone 2x6mm Cranial Cortex Titanium Self Tapping Cruciform Recess Gold - [id number] Implanted:Qty: 8 on 05/27/2024 by Margoth Velásquez MD at [facility] N/A: Posterior Cervical [employer] 401.063E / / Procedures Procedure Name Priority Date/Time Associated Diagnosis Comments OUTSIDE IMAGING Routine 01/14/2025 9:50 AM EDT OUTSIDE IMAGING Routine 01/14/2025 9:47 AM EDT US LOWER EXTREMITY ARTERIES (BEL) PHYSIO COMPLETE [...] Recently Relevant to Health Maintenance Results * Outside Imaging Report Only (01/14/2025 9:50 AM EDT) us Unknown Unknown MD NAVAS XR CHEST Edited Result - Final * Outside Imaging Report Only (01/14/2025 9:47 AM EDT) us Unknown Unknown MD IMG XR CHEST Edited Result - Final * US Lower Extremity Arteries (BEL) Physio [...] for this study included: spectral waveform Doppler. us Aryan Perry MD CV US VASCULAR Final Resul t * Outside Lab (11/17/2024 12:28 PM EDT) Only the most recent of2 resultswithin the time period is included. us Unknown Unknown MD LAB BLOOD ORDERABLES Edited R esult - [...] (09/09/2024 10:06 AM EDT) HDL 54 mg/dL [facility] Comment: Interpretation <40 mg/dL: Low HDL cholesterol (major risk factor for CHD) Greater than or equal to 60 mg/dL: High HDL cholesterol ( negative risk factor for CHD) HDL - cholesterol is affected by a number of factors, e.g. smoking, excerise, hormones, sex and age. CHOLESTEROL 216 0 - 240 mg/dL [facility] TRIGLYCERIDES 142 30 - 160 mg/dL [facility] LDL 134(H) 50 - 129 mg/dL [facility] Comment: LDL levels in terms of risk for coronary heart disease: <100 mg/dL: Optimal 100-129 mg/dL: Near or above optimal 130-159 mg/dL: Borderline high 160-189 mg/dL: High >190 mg/dL: Very High CARDIAC RISK RATIO 4.0 3.4 - 5.0 [facility] Blood 09/09/2024 10:0 6 AM EDT 09/09/2024 10:13 AM EDT us Khadra Romo MD LAB BLOOD ORDERABLES Final R esult [address] [address] * Hepatitis C antibody, qualitative (06/12/2021 8:53 AM EST) HCV NON-REACTIV E NON-REACTI VE [facility] Blood 06/12/2021 8:53 AM EST 06/12/2021 8:54 AM EST us Khadra Romo MD LAB BLOOD ORDERABLES Final R esult Performing Organization Address City/[facility]/ZIP Co de Phone Number [address] [address] from Last 3 Months or Most Recently [...] Advance Directives For more information, please contact: [phone] (9AM - 5PM [place], Thursday-Thursday) Documents on File Type Date Recorded 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 07/22/2024 MOLST 06/29/2024 * Full Code (Latest Code Status on File) Date Activated Date Inactivated Comments 05/27/2024 11:53 AM Question Answer Comments Code Status Confirmed With: Other (specify below ) Code Discussion Comments: periop Care Teams Iron Miner Blasting Relationship Specialty Start Date End Date Khadra Romo MD [address] [address] [email or web address] PCP - General Family Medicine 06/12/21 John Chopra MD 55 [place] [address] [email or web address] Neurology 06/17/23 Lenny Pendleton MD 165 [facility] 820 [place] [address] [email or web address] Neurology 06/17/23 Additional Source Comments The information contained in this document represents components of the legal health record. It is not the complete legal health record.[facility]
--- OUTSIDE RECORDS SUMMARY | 2025-01-17 15:50 | XMS_ITS | Encounter Summary ---
Author Organization [facility] Address [address] [place] [address] Phone Care Team Providers Care Slip Bridge Operator Name Role Phone Khadra Romo MD Primary Care Provider [phone] John Chopra MD Unavailable [phone] Rai Pendleton-Alonzo Zelaya MD Unavailable Encounter Details Date Type Department Care Team (Late st Contact Info) Description 01/06/2024 Procedure Pass [facility], Ct Scan - [address] [address] Social History Tobacco Use Types Packs/Day Years [...] high school, GED, job training, learning the Gibraltarian language, technical skills, or developing parenting skills)? [...] Description 01/18/2025 1:30 PM EDT Office Visit [facility] Services [address] [place] [address] [place] [id number] Analia Acuña, COMPRESSOR HOUSE OPERATOR 15 [facility] [address] [place] [address] [email or web address] Baxternifer, PT 8 [place] [address] 01/19/2025 10:40 AM EDT Office Visit [facility] [place] [facility] [address] [facility] [address] [place] [address] Khadra Romo MD 15 [facility] Sonny. 201 [place] [address] 03/01/2025 Procedure Pass [facility] Admitting Dept Virtual Department [address] [place] [address] 03/01/2025 9:30 AM EDT Hospital Encounter [facility] Endoscopy Admitting Dept Virtual Department [address] [place] [address] Shai Ayon MD [address] [address] 03/01/2025 9:30 AM EDT - 03/01/2025 10:00 AM EDT Surgery [facility] Endoscopy Admitting Dept Virtual Department [address] [place] [address] Shai Ayon MD [address] [address] COLONOSCOPY 04/10/2025 11:00 AM EST Office Visit [facility] Neurology Neuromuscular [address], [address] [place] [address] Lenny Pendleton MD [address] [place] [address] [address] [place] [address] [email or web address] 06/09/2025 1:00 PM EST Office Visit [facility] Department of Neurology 55 [facility], 8th Floor, [address] [place] [address] John Chopra MD 55 [place] [address] [email or web address] 07/21/2025 8:40 AM EDT Office Visit [facility] [place] [facility] 15 [facility] [address] [place] [address] Khadra Romo MD 15 [facility] 201 [place] [address] [email or web address] 08/25/2025 11:00 AM EDT Office Visit [facility] Cardiology [facility] [address] [facility], [address] [place] [address] Clementine Brower MD [address] [place] [address] [email or web address] Scheduled Procedures Name Priority Associated Diagnoses Date/Ti me COLONOSCOPY Screen for colon cancer 03/01/2025 9:30 AM EDT documented as of this encounter Visit Diagnoses Not on filedocumented in this encounter Additional Health Concerns Assessment Noted Time PHQ-9 Depression Total Score: 12 024 3:46 PM EST PHQ-2 Depression Total Score: 4 06/23/19 24 11:49 PM EST documented as of this encounter Care Teams Slip Bridge Operator Relationship Specialty Start Date End Date Khadra Romo MD 15 [facility] Sonny. [address] [place] [address] PCP - General Family Medicine 06/12/21 John Chopra MD 55 [place] [address] [email or web address] Neurology 06/17/23 Lenny Pendleton MD [address] [place] [address] 820 [place] [address] [email or web address] 06/17/23 documented as of this encounter Additional Source Comments The information contained in this document represents components of the legal health record. It is not the complete legal health record.[facility]
--- NOTE | 2025-01-17 15:52 | PHA.MEDREC ---
Addendum entered by Rhonda Pike RPh 01/17/25 16:50: [facility] reviewed Original Note: Pharmacy Consult ? Medication Reconciliation Pharmacy has completed the medication reconciliation. Patient states he is no longer taking Burpropion 300 mg, Vitamin D3 50 mcg, Colchicine 0.6 mg Vitamin B-12, Gabapentin 300 mg and Sildenafil 100 mg. Patient confirmed Lamotrigine 300 mg every morning and 200 mg every evening. Patient had all his morning medications today.
[2025-01-17 16:44] VITALS: BP 137/68; PULSE 50; RESP 18; TEMP 36.8; O2SAT 98
--- NOTE | 2025-01-17 17:33 | PC.NURSE ---
Away for MRI.
[2025-01-17 17:48] VITALS: BMI 25.7
[2025-01-17 19:58] VITALS: BP 138/65; PULSE 46; RESP 20; TEMP 36.8; O2SAT 99
[2025-01-17 23:45] VITALS: BP 148/70; PULSE 55; RESP 20; TEMP 36.6; O2SAT 97
[2025-01-18] VITALS (8 sets, daily range): BP systolic 110–144; BP diastolic 63–74; PULSE 50–60; RESP 16–20; TEMP 36.3–36.6; O2SAT 97–99
--- NOTE | 2025-01-18 07:00 | CA_ITS ---
Transthoracic Echocardiogram Patient (Last, First, Middle): Chilo Lee, Gender: M Date of : 1955 Age: 69 Procedure Date: 01/18/2025 Procedure Type: Transthoracic Echocardiogram Location: [facility] Height: 182.88 cm Weight: 85.73 kg BSA: 2.08 m2 Heart Rate: 56 bpm BP: 142 / 70 mmHg Professional Architect: SB Referring MD: Malou Storey NP Symptoms: possible TIA/recent pericarditis Study Quality: Adequate ECG Rhythm: Bradycardia Conclusions: - The left ventricular systolic function is normal. The calculated ejection fraction is 65% by biplane method. - No obvious valvular pathology seen on this study. Findings Left Ventricle Normal left ventricular cavity size. There is normal left ventricular wall thickness. The left ventricular systolic function is normal. The calculated ejection fraction is 65% by biplane method. There is no evidence of regional wall motion abnormalities. Right Ventricle Normal right ventricular cavity size and systolic function. Atria Both atria are normal in size. Aortic Valve There is a normal trileaflet aortic valve. There is no aortic valve stenosis. There is trace (trivial) aortic valve regurgitation. Mitral Valve The mitral valve appears normal. There is trace mitral valve regurgitation. There is no mitral valve stenosis. Pulmonic Valve The pulmonic valve is likely normal. Tricuspid Valve There is no tricuspid valve regurgitation. Tricuspid regurgitation envelope is inadequate for calculation of right ventricular systolic pressure. Great Vessels The asc aorta is normal in size. Venous The inferior vena cava is normal in size and collapses greater than 50% with inspiration. Pericardium/Pleural There is no evidence of pericardial effusion. Prior Study Comparison No prior study available for comparison. Recommendations, Care & Conclusions No obvious valvular pathology seen on this study. Measurements 2D Linear Measurements IVSd: 0.57 0.6-0.9/0.6-1.0 cm LVIDd: 5.48 3.9-5.3/4.2-5.9 cm LVIDd Index: 2.63 2.4-3.2/2.2-3.1 cm/m2 LVIDs: 3.57 2.0-3.6 cm LVPWd: 0.78 0.7-1.1 cm LA Diam: 3.50 2.7-3.8/3.0-4.0 cm LAIDs Index: 1.68 1.5-2.3 cm/m2 LV Mass: 159.63 67-162/88-224 g LV Mass Index: 76.74 43-95/49-115 g/m2 LVOT Diam: 2.40 3.0+(-)1.3 cm 2D Systolic Function EF 4C: 64.90 >55% EF 2C: 65.40 >55% EF BiP: 65.20 >55% Mitral Valve MV Pk E: 0.70 MV PK A: 0.45 MV Decel Time: 301.00 E/A: 1.60 E'Lateral: 12.00 E'Medial: 9.79 E/E' Med: 7.10 E/E' Lat: 5.80 PHT: 88.00 MVA PHT: 2.50 Decel [place]: 2.32 Aortic Valve AoV Pk Hector: 1.13 AoV Pk Grad: 5.00 ANTHONY: 4.15 LVOT LVOT Pk Hector: 0.96 LVOT Mn Hector: 0.67 LVOT VTI: 0.20 LVOT Pk Grad: 4.00 LVOT Mn Grad: 2.00 LVOT Diam: 2.40 LVOT Area: 4.52 Diastolic Function MV Pk E: 0.70 MV Pk A: 0.45 E/A: 1.60 E'Medial: 9.79 E/E' Med: 7.10 E' Laterial: 12.00 E/E' Lat: 5.80 Right Ventricle TAPSE (mm): 19.40 TVS' Hector: 12.30 Tricuspid Valve RA Press: 3.00 Great Vessels Aorta Sinus of Valsalva: 3.50 2.0-3.5 cm Ao Asc: 3.20 2.1-3.4 cm Pulmonary Veins Pulm Vein S/D 1.40 Pulmonary Valve PV Pk Hector: 0.96 Peak PV Grad: 4.00 RI Pk Hector: 1.76 Updated in Other Vendor System with Status of Final Michael Osorio MD electronically signed on 01/18/2025 11:53:06 AM with status of Final
[2025-01-18 07:18] LABS: MANUAL DIFF FLAG NO
[2025-01-18 07:24] LABS: Hematocrit 36.0 % (42.0-52.0); Hemoglobin 12.5 g/dl (14.0-18.0); Imm Gran Abs Auto 0.01 X10*3/uL (0.00-0.03); Imm Gran Pct Auto 0.2 % (0.0-0.4); Lymphocytes Absolute Auto 1.4 X10*3/uL (1.2-4.9); Mean Corpuscular HGB Conc 34.7 g/dl (31.0-36.0); Mean Corpuscular Hemoglobin 30.7 pg (27.0-33.0); Mean Corpuscular Volume 88.5 fL (80.0-98.0); NRBC Abs Auto 0.000 X10*3/uL (0.0-0.012); NRBC Pct Auto 0.0 /100WBC (0.0-0.2); Platelet Count 175 X10*3/uL (160-400); Red Blood Count 4.07 X10*6/uL (4.60-5.80); White Blood Count 4.6 X10*3/uL (4.8-10.8)
[2025-01-18 07:42] LABS: Anion Gap 11 (12-20); Blood Urea Nitrogen 14 mg/dL (9-16); Calcium 8.7 mg/dL (8.4-10.2); Carbon Dioxide 26 mmol/L (22-29); Chloride 110 mmol/L (96-108); Creatinine Clr Calc Pharmacy 75.4; Estimated Glomerular Filt Rate > 60; Potassium 3.7 mmol/L (3.3-5.1); Sodium 143 mmol/L (135-145)
[2025-01-18 07:44] LABS: Cholesterol 139 mg/dL (<200); HDL Cholesterol 39 mg/dL (>40); Triglycerides 108 mg/dL (<150)
[2025-01-18] MEDS: Amphetamine Mixed Salts 20 MG TABLET PO (09:02)
--- NOTE | 2025-01-18 09:04 | HO.PM.IMPN ---
Subjective Subjective Date of Service: 01/18/25 Interval History: Patient has no new complaints today. Denies paresthesia, numbness, hemiplegia, slurred speech, vision changes. Reports that he feels well, and back to baseline. MRI results reviewed from yesterday, revealing a small CVA of the left frontal lobe; etiology at undetermined. The patient was recently started on high-dose ibuprofen 800 mg t.i.d. for pericarditis. The patient denies palpitations, history of atrial fibrillation. 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 Undetermined etiology at this time. Undergoing workup. We will obtain documentation and notes. The patient's is by bedside, and she was updated on the patient's clinical status, and further workup. Review of Systems Review of Systems: Yes all other systems are reviewed and are negative Physical Exam Exam: Exam: General: A&O x3, oriented to time place person and situation, comfortable, no pain Cardiac: S1, S2 auscultated with no S3/4, no MRG. Well perfused. Respiratory: Normal breath sounds auscultated throughout all lung zones, without wheezing, rales. Normal rate. GI/ : No abdominal pain on palpation, no masses or distentions. MSK: Normal ambulation without pain at bony prominences or musculature Neurological: Normal neurological examination on overview, without obvious CN II-XII abnormalities. Strength 5/5 in upper and lower extremities bilaterally, no new paresthesias. Vital Signs: Vital Signs: Last Vital Signs Temp 97.9 F 01/18/25 04:00 Pulse 55 01/18/25 04:00 Resp 16 01/18/25 04:00 BP 142/70 H 01/18/25 04:00 Pulse Ox 97 01/18/25 04:00 O2 Del Method Room Air 01/18/25 04:00 BMI result Body Mass Index 25.7 Objective Data Active Medications Acetaminophen (Acetaminophen 325 Mg Tablet) 650 mg PO Q6H PRN PRN Reason: Pain, Mild 1-3,fever,headache Amphetamine/Dextroamphetamine (Amphetamine Mixed Salts 20 Mg Tablet) 20 mg PO BID@0800,1200 [facility] Last Admin: 01/18/25 09:02 Dose: 20 mg Documented By: DEONNA Aspirin (Aspirin 81 Mg Tab.Chew) 81 mg PO DAILY [facility] Last Admin: 01/18/25 09:02 Dose: 81 mg Documented By: DEONNA Calcium Carbonate (Calcium Carbonate 750 Mg Tab.Chew) 750 mg PO Q4H PRN PRN Reason: Heartburn Colchicine (Colchicine 0.6 Mg Tablet) 0.6 mg PO DAILY [facility] Last Admin: 01/18/25 09:02 Dose: 0.6 mg Documented By: DEONNA Enoxaparin Sodium (Enoxaparin Sodium 40 Mg/0.4 Ml Syringe) 40 mg SUBCUT Q24H [facility] Last Admin: 01/17/25 19:52 Dose: 40 mg Documented By: EVA Lamotrigine (Lamotrigine 100 Mg Tablet) 200 mg PO BEDTIME [facility] Last Admin: 01/17/25 21:15 Dose: 200 mg Documented By: EVA Lamotrigine (Lamotrigine 100 Mg Tablet) 300 mg PO DAILY [facility] Last Admin: 01/18/25 09:02 Dose: 300 mg Documented By: DEONNA Magnesium Hydroxide (Milk Of Magnesia 30 Ml Oral.Susp) 30 ml PO DAILY PRN PRN Reason: Constipation Melatonin (Melatonin 3 Mg Tablet) 6 mg PO BEDTIME PRN PRN Reason: Insomnia Non-Formulary Medication (Ropinirole) 2 mg PO BEDTIME [facility] Omeprazole (Omeprazole 20 Mg Capsule.Dr) 20 mg PO BID@0630,1630 [facility] Last Admin: 01/18/25 06:36 Dose: 20 mg Documented By: EVA Ondansetron HCl (Ondansetron Hcl 4 Mg/2 Ml Vial) 4 mg IVPUSH Q8H PRN PRN Reason: Nausea and Vomiting Pravastatin Sodium (Pravastatin Sodium 20 Mg Tablet) 20 mg PO DAILY [facility] Last Admin: 01/18/25 09:02 Dose: 20 mg Documented By: DEONNA Labs 01/18/25 06:48 01/18/25 06:48 Labs: Laboratory Results - last 24 hr 01/17/25 01/17/25 01/17/25 10:53 11:25 13:03 MCV 89.7 MCH 30.8 MCHC 34.4 RDW 13.8 Plt Count 167 MPV 10.7 Immature Gran % (Auto) 0.2 Neut % (Auto) 58.3 Lymph % (Auto) 28.0 [place] % (Auto) 10.8 Eos % (Auto) 2.5 Baso % (Auto) 0.2 Lymph # (Auto) 1.5 [place] # (Auto) 0.6 Eos # (Auto) 0.1 Baso # (Auto) 0.0 Abs Immat Gran (auto) 0.01 Absolute Neuts (auto) 3.0 Absolute Nucleated RBC 0.000 Nucleated RBC % (auto) 0.0 PT 11.4 INR 1.0 APTT 27.2 Anion Gap 11 L Estim Creat Clear Calc 83.8 Estimated GFR > 60 Random Glucose 86 Estimat Average Glucose 117 Hemoglobin A1c % 5.7 Calcium 8.5 Troponin I High Sens 60.7 H D 56.9 H Triglycerides 85 Cholesterol 138 LDL Cholesterol, Calc 75 HDL Cholesterol 46 Urine Color Yellow Urine Appearance Clear Urine pH 7.5 Ur Specific Reserve 1.020 Urine Protein Negative Urine Glucose (UA) Negative Urine Ketones Negative Urine Blood Negative Urine Nitrite Negative Ur Leukocyte Esterase Negative 01/18/25 06:48 MCV 88.5 MCH 30.7 MCHC 34.7 RDW 13.2 Plt Count 175 MPV 10.7 Immature Gran % (Auto) 0.2 Neut % (Auto) 54.5 Lymph % (Auto) 29.8 [place] % (Auto) 10.9 Eos % (Auto) 4.4 H Baso % (Auto) 0.2 Lymph # (Auto) 1.4 [place] # (Auto) 0.5 Eos # (Auto) 0.2 Baso # (Auto) 0.0 Abs Immat Gran (auto) 0.01 Absolute Neuts (auto) 2.5 Absolute Nucleated RBC 0.000 Nucleated RBC % (auto) 0.0 PT INR APTT Anion Gap 11 L Estim Creat Clear Calc 75.4 Estimated GFR > 60 Random Glucose 103 Estimat Average Glucose Hemoglobin A1c % Calcium 8.7 Troponin I High Sens Triglycerides 108 Cholesterol 139 LDL Cholesterol, Calc 79 HDL Cholesterol 39 L Urine Color Urine Appearance Urine pH Ur Specific Reserve Urine Protein Urine Glucose (UA) Urine Ketones Urine Blood Urine Nitrite Ur Leukocyte Esterase Assessment and Plan (1) CVA (cerebral vascular accident): Status: Acute (2) JACOB positive: Status: Acute (3) Hyperlipidemia: Status: Acute (4) Peripheral demyelinating neuropathy: Status: Acute (5) Restless legs syndrome: Status: Acute (6) Orthostatic hypertension: Status: Acute Plan 6-year-old male, with a background history of HLD, depression, anxiety, orthostatic hypo/HTN, CIDP, recently diagnosed pericarditis started on high-dose NSAIDs/colchicine, presents with right upper extremity paresthesia and depersonalization with weakness, admitted for acute left frontal lobe CVA identified on MRI. Acute Left frontal lobe CVA HLD Head CT performed without concerning findings MRI brain was performed 01/17 19:00, revealing posterior left frontal lobe small CVA. PLAN - continue aspirin 81mg - permissive HTN - discontinue pravastatin 20 mg and start atorvastatin 80 mg - cardiac telemetry - neurology consultation - echocardiography repeat - ultrasound carotid arteries - neuro checks q.4 hourly Pericarditis Orthostatic hypotension Orthostatic hypotension PLAN - hold Adderall - HOLD IBUPROFEN given increased risk of neurovascular instability - repeat echocardiography - colchicine 0.6 mg OD p.o. - consider cardiology consultation for recommendations post obtaining notes from [facility] regarding pericarditis management CIDP Being evaluated for CIDP by Neurology at [facility]. Obtaining documentation from hospital for consolidation of medical problems. GERD - continue omeprazole 20 mg OD p.o. CHRONIC MEDICAL ISSUES - Restless leg syndrome : Continue ropinirole - ADHD: Hold Adderall [employer] - VTE: Enoxaparin - CODE STATUS: Full code - DIET: Regular diet - DISPOSITION: 1-2 days admission - DC home without services. Total time managing care of this patient today: 45 minutes. Quality Stroke Does the patient have a stroke diagnosis?: No VTE Prior VTE?: No VTE Risk Level:: Medical - moderate - high VTE Device Contraindication: Treatment Not Indicated VTE Drug Contraindication: N/A - Med Ordered
--- NOTE | 2025-01-18 10:40 | PM.NEUROCN ---
History of Present Illness Data of Consult Service Date: 01/18/25 Primary Care Provider: Khadra Romo MD [facility] Reason for consult: Stroke Chilo is a 69-year-old male patient with a past medical history of GERD, ADHD and restless legs syndrome also being followed at [facility] for possible dysautonomia 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 The patient also notes potential for a synuclenopathy though does not have a formal diagnosis that he is aware of. He was also most recently diagnosed with pericarditis and was recently started on high-dose ibuprofen 800 mg 3 times daily and colchicine. He originally presented to the emergency department for reports of awakening with sensation that his right arm was not working ?should?. He felt that his fine motor skills were impaired and he could not figure out how to start the car. These symptoms fully resolved and he was asymptomatic upon arrival to the emergency room. He denies a known history of atrial fibrillation. His workup was significant for an MRI of the brain which showed a small left frontal lobe CVA. He does note that he felt as though his symptoms have returned last night when getting ready for his MRI scan. He had a very brief sensation that his right arm motor skills had diminished while getting his pants on. This lasted less than minute and resolved on its own. He has not had any further recurrence of symptoms. He denies any residual weakness, paresthesias, loss of sensation, visual changes, changes to cognition or speech. Review of Systems Review of Systems: Yes all other systems are reviewed and are negative Neurologic: Denies Sensory deficit (Neuro) PMFSH Past Medical History Medical History Cognitive disorder Back pain Anxiety Depression Hyperlipidemia Non-melanoma skin cancer Family History Family History Father Myocardial infarction Family/Other Cancer Family/Other Breast cancer Mother Skin cancer Surgical History Surgical History H/O cervical spine surgery History of ear surgery Social History Social History Household Members: Spouse Housing: House Do you presently have visiting nurse or other home services: No Alcohol intake: current Alcohol intake frequency: holidays/special occasions only Alcohol type: beer and hard liquor Patient Tobacco Use Status: Never used Tobacco e-Cigarette/Vaping Use: Never Used Have you been hit, kicked, punched, or otherwise hurt by someone within the past year? 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 Allergies Allergy/AdvReac Type Severity Reaction Status Date / Time No Known Allergies Allergy Verified 01/17/25 10:19 Active Medications: Current Medications Acetaminophen (Acetaminophen 325 Mg Tablet) 650 mg PO Q6H PRN PRN Reason: Pain, Mild 1-3,fever,headache Amphetamine/Dextroamphetamine (Amphetamine Mixed Salts 20 Mg Tablet) 20 mg PO BID@0800,1200 [facility] On Hold: 01/18/25 09:15 Last Admin: 01/18/25 09:02 Dose: 20 mg Aspirin (Aspirin 81 Mg Tab.Chew) 81 mg PO DAILY [facility] Last Admin: 01/18/25 09:02 Dose: 81 mg Atorvastatin Calcium (Atorvastatin Calcium 80 Mg Tablet) 80 mg PO BEDTIME JERRY Calcium Carbonate (Calcium Carbonate 750 Mg Tab.Chew) 750 mg PO Q4H PRN PRN Reason: Heartburn Colchicine (Colchicine 0.6 Mg Tablet) 0.6 mg PO DAILY [facility] Last Admin: 01/18/25 09:02 Dose: 0.6 mg Enoxaparin Sodium (Enoxaparin Sodium 40 Mg/0.4 Ml Syringe) 40 mg SUBCUT Q24H [facility] Last Admin: 01/17/25 19:52 Dose: 40 mg Lamotrigine (Lamotrigine 100 Mg Tablet) 200 mg PO BEDTIME [facility] Last Admin: 01/17/25 21:15 Dose: 200 mg Lamotrigine (Lamotrigine 100 Mg Tablet) 300 mg PO DAILY [facility] Last Admin: 01/18/25 09:02 Dose: 300 mg Magnesium Hydroxide (Milk Of Magnesia 30 Ml Oral.Susp) 30 ml PO DAILY PRN PRN Reason: Constipation Melatonin (Melatonin 3 Mg Tablet) 6 mg PO BEDTIME PRN PRN Reason: Insomnia Non-Formulary Medication (Ropinirole) 2 mg PO BEDTIME [facility] Omeprazole (Omeprazole 20 Mg Capsule.) 20 mg PO BID@0630,1630 [facility] Last Admin: 01/18/25 06:36 Dose: 20 mg Ondansetron HCl (Ondansetron Hcl 4 Mg/2 Ml Vial) 4 mg IVPUSH Q8H PRN PRN Reason: Nausea and Vomiting Home Medications ?Medication ?Instructions ?Recorded ?Confirmed ?Last Taken ?Type lovastatin 20 mg tablet 20 mg PO DAILY 06/10/21 01/17/25 01/17/25 History colchicine 0.6 mg tablet 0.6 mg PO DAILY 01/17/25 01/17/25 01/17/25 09:00 History dextroamphetamine-amphetamine 20 1 tab PO BID@0800,1200 01/17/25 01/17/25 Unknown History mg tablet lamotrigine 100 mg tablet 300 mg PO DAILY 01/17/25 01/17/25 01/17/25 History lamotrigine 200 mg tablet 200 mg PO BEDTIME 01/17/25 01/17/25 01/16/25 History (Lamictal) melatonin 5 mg disintegrating 5 mg PO BEDTIME PRN insomnia 01/17/25 01/17/25 Unknown History tablet omeprazole 20 mg capsule,delayed 20 mg PO BID@0630,1630 01/17/25 01/17/25 01/17/25 History release Physical Exam Vital Signs: Vital Signs: Last Vital Signs Temp 97.8 F 01/18/25 08:00 Pulse 60 01/18/25 08:00 Resp 20 01/18/25 08:00 BP 110/66 01/18/25 08:00 Pulse Ox 99 01/18/25 08:00 O2 Del Method Room Air 01/18/25 08:00 BMI result Body Mass Index 25.7 Const: General: cooperative, healthy appearing, comfortable and no acute distress Orientation/consciousness: patient oriented x3 Eyes: Pupils: Equal, round and reactive pupils present Neuro: General: patient oriented x3 and Unable to assess gait Cranial nerves: Yes CN's II-XII intact bilaterally, Yes Equal, round and reactive pupils present, Yes Normal accommodation reflex present, Yes Bilaterally intact EOM present and Yes Nystagmus not present Cognition (Neuro): normal cognition Gait exam (Neuro): Unable to assess gait Motor exam (neuro): 5/5 motor strength present throughout, Pronator motor function not present and no tremor noted Sensory Exam: No Sensory deficit (Neuro) Coordination: pnjblq-[id number] test normal Results Labs 01/18/25 06:48 01/18/25 06:48 Labs: Short CBC 01/17/25 01/18/25 Range/Units 10:53 06:48 WBC 5.2 4.6 L (4.8-10.8) X10*3/uL Hgb 12.0 L 12.5 L (14.0-18.0) g/dl Hct 34.9 L 36.0 L (42.0-52.0) % Plt Count 167 175 (160-400) X10*3/uL BMP 01/17/25 01/18/25 10:53 06:48 Sodium 143 143 Potassium 3.8 3.7 Chloride 111 H 110 H Carbon Dioxide 25 26 BUN 13 14 Creatinine 0.90 1.00 Calcium 8.5 8.7 Urine 01/17/25 Range/Units 11:25 Urine Color Yellow Urine Appearance Clear Urine pH 7.5 (5.0-9.0) Ur Specific [place] 1.020 (1.005-1.025) Urine Protein Negative (Neg-Trace) mg/dL Urine Glucose (UA) Negative (Negative) mg/dL Assessment and Plan (1) CVA (cerebral vascular accident): Status: Acute Plan Chilo is a 69-year-old male patient with a past medical history of GERD, ADHD and restless legs syndrome also being followed at [facility] for possible dysautonomia 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 The patient also notes potential for a synuclenopathy though does not have a formal diagnosis that he is aware of. He was also more recently was diagnosed with pericarditis and was recently started on high-dose ibuprofen 800 mg 3 times daily and colchicine for treatment. His acute symptoms included transient disruption to right upper extremity motor skills. He is currently asymptomatic. MRI findings did reveal a small left frontal lobe CVA with an undetermined etiology. Recent repeat echocardiogram obtained and awaiting results. In the meantime, I agree with continuation of aspirin 81 mg, permissive hypertension, repeat echocardiogram, carotid Doppler, cardiac telemetry, and discontinuation of pravastatin 20 mg and start on atorvastatin 80 mg initiated. Outpatient follow-up with Cardiology should be arranged. He should also follow[facility] with [facility] for his ongoing neurological care, though we are happy to see him outpatient at the [facility] for stroke follow-up. Procedures Date of Service Date of Service: 01/18/25
--- NOTE | 2025-01-18 13:50 | MHC.CM.PN ---
IMM given 01/18. Pt self-care, lives at home with his . Pt will transport himself home at discharge (car is in lot). Pts is his HCP, copy requested. PCP: Dr. Khadra Romo
[2025-01-19 03:45] VITALS: BP 119/61; PULSE 49; RESP 18; TEMP 36.4; O2SAT 97
--- OUTSIDE RECORDS SUMMARY | 2025-01-19 07:42 | XMS_ITS | Encounter Summary ---
Author Organization [facility] Address [address] [facility] [address] [place] [address] Phone Care Team Providers Care Eligibility Worker Name Role Phone Khadra Romo MD Primary Care Provider John Chopra MD Unavailable [phone] Lenny Pendleton MD Unavailable Encounter Details Date Type Department Care Team (Late st Contact Info) Description 11/10/2023 Procedure Pass [facility], [address] [address] Social History Tobacco Use Types Packs/Day Years [...] high school, GED, job training, learning the Tajik language, technical skills, or developing parenting skills)? [...] Care Team (Late st Contact Info) Description 03/01/2025 Procedure Pass [facility] Admitting [facility] Virtual Department [address] [place] [address] 03/01/2025 9:30 AM EDT Hospital Encounter [facility] Virtual Department 30 [place] [address] Shai Ayon MD 10 [facility] 2 [place] [address] 03/01/2025 9:30 AM EDT - 03/01/2025 10:00 AM EDT Surgery [facility] Admitting Dept Virtual Department 30 [place] [address] Shai Ayon MD [address] [address] COLONOSCOPY 04/10/2025 11:00 AM EST Office Visit [facility] Neurology Neuromuscular [address], [address] [place] [address] Lenny Pendleton MD [address] [place] [address] [address] [place] [address] [email or web address] 06/09/2025 1:00 PM EST Office Visit [facility] Department of Neurology [address] [facility], 8th Floor, [address] [place] [address] John Chopra MD 55 [place] [address] [email or web address] 07/21/2025 8:40 AM EDT Office Visit [facility] [address] [facility] [address] [place] [address] Khadra Romo MD 15 [facility] [address] [place] [address] 08/25/2025 11:00 AM EDT Office Visit [facility]iology [facility] [address] [facility], [address] [place] [address] Clementine Brower MD [address] [place] [address] [email or web address] Scheduled Procedures Name Priority Associated Diagnoses Date/Ti me COLONOSCOPY Screen for colon cancer 03/01/2025 9:30 AM EDT documented as of this encounter Visit Diagnoses Not on filedocumented in this encounter Additional Health Concerns Assessment Noted Time PHQ-9 Depression Total Score: 12 024 3:46 PM EST PHQ-2 Depression Total Score: 4 06/23/19 24 11:49 PM EST documented as of this encounter Care Teams Eligibility Worker Relationship Specialty Start Date End Date Khadra Romo MD [address] [address] [email or web address] PCP - General Family Medicine 06/12/21 John Chopra MD 55 [place] [address] [email or web address] 06/17/23 Lenny Pendleton MD [address] [place] [address] 820 [place] [address] [email or web address] 06/17/23 documented as of this encounter Additional Source Comments The information contained in this document represents components of the legal health record. It is not the complete legal health record.[facility]
--- OUTSIDE RECORDS SUMMARY | 2025-01-19 07:42 | XMS_ITS | Encounter Summary ---
Author Organization [facility] Address [address] [facility] [address] [place] [address] Phone Care Team Providers Care Processing Talc And Borate Supervisor Name Role Phone Khadra Romo MD Primary Care Provider Pcp, Unknown Unavailable Unavailable John Chopra MD Unavailable [phone] Lenny Pendleton MD Unavailable Encounter Details Date Type Department Care Team (Late st Contact Info) Description 11/22/2022 Procedure Pass , [address] [address] Social History Tobacco Use Types Packs/Day Years [...] high school, GED, job training, learning the Panamanian language, technical skills, or developing parenting skills)? [...] [facility] Admitting Dept Virtual Department [address] [place] [address] 03/01/2025 9:30 AM EDT Hospital Encounter [facility] Admitting Dept Virtual Department [address] [place] [address] Shai Ayon MD [address] [place] [address] 03/01/2025 9:30 AM EDT - 03/01/2025 10:00 AM EDT Surgery [facility] Endoscopy Admitting Dept Virtual Department [address] [place] [address] Shai Ayon MD 10 [facility] 2 [place] [address] [email or web address] COLONOSCOPY 04/10/2025 11:00 AM EST Office [place] [facility] [place] Neuromuscular [place] [address] [facility], [address] [place] [address] Lenny Pendleton MD [address] [facility] [address] [place] [address] [email or web address] 06/09/2025 1:00 PM EST Office Visit [facility] Department of Neurology [address] [facility], 8th Floor, [address] [place] [address] John Chopra MD 55 [place] [address] [email or web address] 07/21/2025 8:40 AM EDT Office Visit [facility] [address] [facility] [address] [place] [address] Khadra Romo MD 15 [facility] [address] [place] [address] [email or web address] 08/25/2025 11:00 AM EDT Office Visit [facility] [place] [address] [facility], [address] [place] [address] Clementine Brower MD [address] [place] [address] [email or web address] Scheduled Procedures Name Priority Associated Diagnoses Date/Ti mn COLONOSCOPY Screen for colon cancer 03/01/2025 9:30 AM EDT documented as of this encounter Visit Diagnoses Not on filedocumented in this encounter Additional Health Concerns Assessment Noted Time PHQ-9 Depression Total Score: 13 023 11:10 PM EST PHQ-2 Depression Total Score: 4 06/15/19 23 11:10 PM EST documented as of this encounter Care Teams Processing Talc And Borate Supervisor Relationship Specialty Start Date End Date Khadra Romo MD 15 [facility] [address] [place] [address] [email or web address] PCP - General Family Medicine 06/12/21 Pcp, Unknown 01/28/21 06/16/23 John Chopra MD [address] [place] [address] [email or web address] [email or web address] 06/17/23 Rai Pendleton-Alonzo Zelaya MD [address] [place] [address] 820 [place] [address] [email or web address] Neurology 06/17/23 documented as of this encounter Additional Source Comments The information contained in this document represents components of the legal health record. It is not the complete legal health record.[facility]
--- OUTSIDE RECORDS SUMMARY | 2025-01-19 07:42 | XMS_ITS | Encounter Summary ---
Author Organization [facility] Address [address] [facility] [address] [place] [address] Phone Care Team Providers Care Chief Catalyst Operator Name Role Phone Khadra Romo MD Primary Care Provider John Chopra MD Unavailable [phone] Rai Pendleton-Alonzo Zelaya MD Unavailable Encounter Details Date Type Department Care Team (Late st Contact Info) Description 01/16/2025 Orders Only [facility] Family Medicine [address] [place] [address] Unknown, Unknown, Social History Tobacco Use Types [...] Pass [facility] Endoscopy Admitting Dept Virtual Department [address] [place] [address] 03/01/2025 9:30 AM EDT Hospital Encounter [facility] Endoscopy Admitting Dept Virtual Department [address] [place] [address] Shai Ayon MD 10 [facility] 2 [place] [address] 03/01/2025 9:30 AM EDT - 03/01/2025 10:00 AM EDT Surgery [facility] Endoscopy Admitting Dept Virtual Department [address] [place] [address] Shia Ayon MD [address] [address] COLONOSCOPY 04/10/2025 11:00 AM EST Office [place] [facility] [place] Neuromuscular [address], [address] [place] [address] Rai Pendleton-Alonzo Zelaya MD [address] [place] [address] [address] [place] [address] [email or web address] 06/09/2025 1:00 PM EST Office Visit [facility] Department of Neurology [address] [facility], 8th Floor, [address] [place] [address] John Chopra MD 55 [place] [address] [email or web address] 07/21/2025 8:40 AM EDT Office Visit [facility] [address] [facility] [address] [place] [address] Khadra Romo MD 15 [facility] 201 [place] [address] [email or web address] 08/25/2025 11:00 AM EDT Office [place] [facility] [place] [facility] [address] [place] [address], [address] [place] [address] Clementine Brower MD [address] [place] [address] [email or web address] Scheduled Procedures Name Priority Associated Diagnoses Date/Ti [...] documented as of this encounter Care Teams Chief Catalyst Operator Relationship Specialty Start Date End Date Khadra Romo MD 15 [facility] 201 [place] [address] [email or web address] PCP - General Family Medicine 06/12/21 John Chopra MD [address] [place] [address] [email or web address] [email or web address] 06/17/23 Lenny Pendleton MD [address] [place] [address] [address] [place] [address] [email or web address] 06/17/23 documented as of this encounter Additional Source Comments The information contained in this document represents components of the legal health record. It is not the complete legal health record.[facility]
--- OUTSIDE RECORDS SUMMARY | 2025-01-19 07:42 | XMS_ITS | Clinical Summary ---
Author Organization [facility] Address [address] [address] Phone Care Team Providers Care Photovoltaic Installation Technician Name Role Phone Khadra Romo MD Primary Care Provider John Chopra MD Unavailable [phone] Lenny Pendleton MD Unavailable Allergies No known [...] for him to see Dr. Brower in [place] Cervical myelopathy 05/27/2024 Assessment & Plan (01/12/2025 [...] future, such as a planned trip to [place] that he mentioned, he should make his [...] Encounters Date Type Department Care Team Description 01/18/2025 Orders Only [facility] [address] [place] [address] Unknown, MD Beatriz 01/17/2025 Telephone [facility] Primary Care [address] [place] [address] Khadra Romo MD [place] Call Sudden Altered mental status 01/16/2025 Telephone [facility] VIRTUAL CLINIC SUPPORT [address] [place] [address] Maddison Irizarry CNP Patient Returned Call 01/16/2025 Orders Only [facility] [address] [place] [address] Unknown, MD Beatriz 01/12/2025 10:40 AM EDT Telemedicine [facility] Primary Care [address] [place] [address] Khadra Romo MD Hypermagnesemia (Primary Dx); Parkinsonism, unspecified Parkinsonism type; Cervical myelopathy 12/23/2024 Telephone [facility] [address] [place] [address] Khadra Romo MD Labs Only 12/20/2024 1:30 PM EDT Office Visit [facility] [address] 3rd Floor, [address] [place] [address] Laura Ayala CNP Orthostatic hypotension (Primary Dx); Lightheadedness; Cold feet 12/08/2024 3:30 PM EDT Telemedicine [facility] Department of Neurology [address] [facility], 8th Floor, [address] [place] [address] John Chopra MD Dysautonomia (Primary Dx); Cognitive decline; Restless leg syndrome; REM sleep behavior disorder; Orthostatic hypotension 11/24/2024 Orders Only [facility] [address] [place] [address] Unknown, Unknown, 11/22/2024 7:40 AM EDT - 11/22/2024 11:59 PM EDT Hospital Encounter [facility] [address]rd [place] [address] Aryan Perry MD Discharge Disposition: Home or Self Care 11/18/2024 Orders Only [facility] [address] [place] [address] Unknown, Unknown, 11/08/2024 8:30 AM EDT Office Visit [facility] [address] [place] [address] Analia Acuña, MEAT TEAM LEAD Ariadne Greene, PT Neck pain (Primary Dx) 11/02/2024 1:20 PM EDT - 11/02/2024 11:59 PM EDT Hospital Encounter Non-Invasive Cardiology [address] [place] [address] Aryan Perry MD Discharge Disposition: Home or Self Care 10/21/2024 11:45 AM EDT Office Visit [facility] [address] [place] [address] Analia Acuña, MEAT TEAM LEAD Ariadne Greene, PT Neck pain (Primary Dx) from Last 3 Months Immunizations Immunization Administration Dates Next Due [id number] FORMULATION 05/28/2009 Hepatitis A, Adult 08/19/2023 Hepatitis [...] [facility] End[facility] Admitting Dept Virtual Department [address] [place] [address] 03/01/2025 9:30 AM EDT Hospital Encounter [facility] Admitting [facility] Virtual Department [address] [place] [address] Shai Ayon MD [address] [place] [address] 03/01/2025 9:30 AM EDT - 03/01/2025 10:00 AM EDT Surgery [facility] Endoscopy Admitting Dept Virtual Department [address] [place] [address] Shai Ayon MD [address] [place] [address] COLONOSCOPY 04/10/2025 11:00 AM EST Office Visit [facility] Neurology Neuromuscular [place] [address] [facility], [address] [place] [address] Lenny Pendleton MD [address] [facility] [address] [place] [address] [email or web address] 06/09/2025 1:00 PM EST Office Visit [facility] Department of Neurology [address] [facility], 8th Floor, [address] [place] [address] John Chopra MD 55 [place] [address] [email or web address] [email or web address] 07/21/2025 8:40 AM EDT Office Visit [facility] [address] [facility] [address] [place] [address] Khadra Romo MD [address] [facility] [address] [place] [address] 08/25/2025 11:00 AM EDT Office Visit [facility] Cardiology [facility] [address] [facility], [address] [place] [address] Clementine Brower MD [address] [place] [address] [email or web address] Scheduled Procedures Name Priority [...] history exists DEPRESSION SCREENING 06/28/2025 06/28/2024, 06/17/19 LIPID PANEL 09/09/2029 09/09/2024, 10/02, 06/16/2022, Additional [...] this topic Medical Devices Implanted Type Area Medical Donation Professional Device Identifier Shelf Expiration Date Model / Serial / Lot Cranial Plate [id number] 20 Hole Bone Mandibular Trauma Adaption Straight Titanium - [id number] Implanted:Qty: 1 on 05/27/2024 by Margoth Velásquez MD at [facility] N/A: Posterior Cervical [employer] 449.020 / / Screw Bone 2x5mm Cortex Titanium Self Drilling Plusdrive Recess Single - [id number] Implanted:Qty: 3 on 05/27/2024 by Margoth Velásquez MD at [facility] N/A: Posterior Cervical [employer] [id number] / / Screw Bone 2x6mm Cranial Cortex Titanium Self Tapping Cruciform Recess Gold - [id number] Implanted:Qty: 8 on 05/27/2024 by Margoth Velásquez MD at [facility] N/A: Posterior Cervical [employer] [id number] / / Procedures Procedure Name Priority Date/Time Associated Diagnosis Comments OUTSIDE IMAGING Routine 01/17/2025 8:07 AM EDT OUTSIDE IMAGING Routine 01/14/2025 9:50 AM EDT [...] Maintenance Results * Outside Imaging Report Only (01/17/2025 8:07 AM EDT) us Unknown Unknown MD IMG XR CHEST Edited Result - Final * Outside Imaging Report Only (01/14/2025 9:50 [...] report for full details. Sandra Bentley NP Aryan Perry MD CV STRESS ORDERABLES Final Result * (ABNORMAL) Lipid panel (09/09/2024 10:06 AM EDT) Pathologist [facility] HDL 54 mg/dL [facility] Comment: Interpretation <40 mg/dL: Low HDL cholesterol (major risk factor for CHD) Greater than or equal to 60 mg/dL: High HDL cholesterol ( negative risk factor for CHD) HDL - cholesterol is affected by a number of factors, e.g. smoking, excerise, hormones, sex and age. CHOLESTEROL 216 0 - 240 mg/dL [facility] TRIGLYCERIDES 142 30 - 160 mg/dL [facility] LDL 134(H) 50 - 129 mg/dL [facility] Comment: LDL levels in terms of risk for coronary heart disease: <100 mg/dL: Optimal 100-129 mg/dL: Near or above optimal 130-159 mg/dL: Borderline high 160-189 mg/dL: High >190 mg/dL: Very High CARDIAC RISK RATIO 4.0 3.4 - 5.0 C [facility] Blood 09/09/2024 10:0 6 AM EDT 09/09/2024 10:13 AM EDT Khadra Romo MD LAB BLOOD ORDERABLES Final R esult [address] [address] * Hepatitis C antibody, qualitative (06/12/2021 8:53 AM EST) [facility] HCV NON-REACTIV E NON-REACTI VE [facility] Blood 06/12/2021 8:53 AM EST 06/12/2021 8:54 AM EST Khadra Romo MD LAB BLOOD ORDERABLES Final R esult [facility] [address] [place] [address] from Last 3 Months or Most Recently [...] Advance Directives For more information, please contact: [phone] (9AM - 5PM [place], Thursday-Thursday) Documents on File Type Date Recorded Patient Fourdrinier Machine Operator Expl anation Healthcare Proxy 07/22/2024 MOLST 06/29/2024 * Full Code (Latest Code Status on File) Date Activated Date Inactivated Comments 05/27/2024 11:53 AM Question Answer Comments Code Status Confirmed With: Other (specify below ) Code Discussion Comments: periop Care Teams Photovoltaic Installation Technician Relationship Specialty Start Date End Date Khadra Romo MD [address] [address] [email or web address] PCP - General Family Medicine 06/12/21 John Chopra MD [address] [place] [address] [email or web address] [email or web address] 06/17/23 Rai Pendleton-Alonzo Zelaya MD [address] [place] [address] [address] [place] [address] [email or web address] [email or web address] 06/17/23 Additional Source Comments The information contained in this document represents components of the legal health record. It is not the complete legal health record.[facility]
--- OUTSIDE RECORDS SUMMARY | 2025-01-19 07:42 | XMS_ITS | Encounter Summary ---
Author Organization [facility] Address [address] [place] [address] Phone Care Team Providers Care Digital Asset Coordinator Name Role Phone Khadra Romo MD Primary Care Provider John Chopra MD Unavailable [phone] Rai Pendleton-Alonzo Zelaya MD Unavailable Encounter Details Date Type Department Care Team (Late st Contact Info) Description 01/06/2024 Procedure Pass [facility], Ct Scan - [address] [address] Social History Tobacco Use Types Packs/Day Years [...] high school, GED, job training, learning the Venezuelan language, technical skills, or developing parenting skills)? [...] [facility] Endoscopy Admitting Dept Virtual Department [address] [place] [address] 03/01/2025 9:30 AM EDT Hospital Encounter [facility] End[facility] Admitting Dept Virtual Department [address] [place] [address] Shai Ayon MD 10 [facility] 2 [place] [address] 03/01/2025 9:30 AM EDT - 03/01/2025 10:00 AM EDT Surgery [facility] Endoscopy Admitting Dept Virtual Department [address] [place] [address] Shai Ayon MD [address] [address] COLONOSCOPY 04/10/2025 11:00 AM EST Office Visit [facility] Neurology Neuromuscular [address], [address] [place] [address] Lenny Pendleton MD [address] [place] [address] [address] [place] [address] [email or web address] 06/09/2025 1:00 PM EST Office Visit [facility] Department of Neurology [address] [facility], 8th Floor, [address] [place] [address] John Chopra MD 55 [place] [address] [email or web address] 07/21/2025 8:40 AM EDT Office Visit [facility] [address] [facility] [address] [place] [address] Khadra Romo MD [address] [facility] [address] [place] [address] 08/25/2025 11:00 AM EDT Office Visit [facility] Cardiology [facility] [address] [facility], [address] [place] [address] Clementine Brower MD [address] [place] [address] [email or web address] Scheduled Procedures Name Priority Associated Diagnoses Date/Ti me COLONOSCOPY Screen for colon cancer 03/01/2025 9:30 AM EDT documented as of this encounter Visit Diagnoses Not on filedocumented in this encounter Additional Health Concerns Assessment Noted Time PHQ-9 Depression Total Score: 12 024 3:46 PM EST PHQ-2 Depression Total Score: 4 06/23/19 24 11:49 PM EST documented as of this encounter Care Teams Digital Asset Coordinator Relationship Specialty Start Date End Date Khadra Romo MD [address] [address] [email or web address] PCP - General Family Medicine 06/12/21 John Chopra MD 55 [place] [address] [email or web address] Neurology 06/17/23 Lenny Pendleton MD [address] [place] [address] [address] [place] [address] [email or web address] 06/17/23 documented as of this encounter Additional Source Comments The information contained in this document represents components of the legal health record. It is not the complete legal health record.[facility]
--- OUTSIDE RECORDS SUMMARY | 2025-01-19 07:42 | XMS_ITS | Encounter Summary ---
Author Organization [facility] Address [address] [place] [address] Phone Care Team Providers Care Canned Food Reconditioning Inspector Name Role Phone Khadra Romo MD Primary Care Provider [phone] John Chopra MD Unavailable [phone] Lenny Pendleton MD Unavailable Encounter Details Date Type Department Care Team (Late st Contact Info) Description 05/27/2024 Procedure Pass [facility] PERIOPERATIVE DEPT [address] [place] [phone] Social History Tobacco Use Types Packs/Day Years [...] high school, GED, job training, learning the Danish language, technical skills, or developing parenting skills)? [...] Author No Risk Indicated 05/27/2024 1:00 PM EST Vonnie Blackmon RN * [place] Suicide Severity Rating Scale (Screener/Recent Self-Report) Question Answer Date of Assessment Author 1. Wish to be (Past 1 Month) No 05/27/2024 1:00 PM EST Vonnie Blackmon RN 2. Non-Specific Active Suici osman Thoughts (Past 1 Month) No 05/27/2024 1:00 PM EST Jo Blackmon RN 6. Suicidal Behavior (Lifetime) No 1:00 PM Vonnie Kim RN documented as of this encounter Plan of Treatment Upcoming Encounters Date Type Department Care Team (Late st Contact Info) Description 03/01/2025 Procedure Pass [facility] Endoscopy Admitting Dept Virtual Department [address] [place] [address] 03/01/2025 9:30 AM EDT Hospital Encounter [facility] Endoscopy Admitting Dept Virtual Department [address] [place] [address] Shai Ayon MD [address] [address] 03/01/2025 9:30 AM EDT - 03/01/2025 10:00 AM EDT Surgery [facility] Endoscopy Admitting Dept Virtual Department [address] [place] [address] Shai Ayon MD [address] [address] COLONOSCOPY 04/10/2025 11:00 AM EST Office Visit [facility] Neurology Neuromuscular [address], [address] [place] [address] Lenny Pendleton MD [address] [place] [address] [address] [place] [address] [email or web address] 06/09/2025 1:00 PM EST Office Visit [facility] Department of Neurology [address] [facility], 8th Floor, [address] [place] [address] John Chopra MD 55 [place] [address] [email or web address] 07/21/2025 8:40 AM EDT Office Visit [facility] [address] [facility] [address] [place] [address] Khadra Romo MD 15 [facility] [address] [place] [address] [email or web address] 08/25/2025 11:00 AM EDT Office Visit [facility] Cardiology [facility] [address] [facility], [address] [place] [address] Clementine Brower MD [address] [place] [address] [email or web address] Scheduled Procedures Name Priority Associated Diagnoses Date/Ti me COLONOSCOPY Screen for colon cancer 03/01/2025 9:30 AM EDT documented as of this encounter Visit Diagnoses Not on filedocumented in this encounter Additional Health Concerns Assessment Noted Time PHQ-9 Depression Total Score: 12 024 3:46 PM EST PHQ-2 Depression Total Score: 4 06/23/19 24 11:49 PM EST documented as of this encounter Care Teams Canned Food Reconditioning Inspector Relationship Specialty Start Date End Date Khadra Romo MD 15 [facility] [place] [address] [email or web address] PCP - General Family Medicine 06/12/21 John Chopra MD [address] [place] [address] [email or web address] [email or web address] 06/17/23 Lenny Pendleton MD [address] [place] [address] [email or web address] [email or web address] 06/17/23 documented as of this encounter Additional Source Comments The information contained in this document represents components of the legal health record. It is not the complete legal health record.[facility]
--- OUTSIDE RECORDS SUMMARY | 2025-01-19 07:42 | XMS_ITS | Encounter Summary ---
Author Organization [facility] Address [address] [facility] [address] [place] [address] Phone Care Team Providers Care Grain Wafer Machine Operator Name Role Phone Khadra Romo MD Primary Care Provider [phone] John Chopra MD Unavailable Lenny Pendleton MD Unavailable Reason for Visit * Reason Onset Date Comments Labs Only 12/23/2024 Encounter Details Date Type Department Care Team (Late st Contact Info) Description 12/23/2024 Telephone [facility] [address] [facility] [address] [place] [address] Khadra Romo MD [address] [facility] [address] [place] [address] [email or web address] Labs Only Social History Tobacco Use Types [...] AM EDT Dr. Simons psych provider from [facility] stating he has abnormal labs he wants to fax to PCP ( elevated Mg). Looking for fax number which was provided. FYI to PCP re labs documented in this encounter Plan of Treatment Upcoming Encounters Date Type Department Care Team (Late st Contact Info) Description 03/01/2025 Procedure Pass [facility] Admitting [facility] Virtual Department [address] [place] [address] 03/01/2025 9:30 AM EDT Hospital Encounter [facility] Endoscopy Admitting Dept Virtual Department [address] [place] [address] Shai Ayon MD [address] [place] [address] 03/01/2025 9:30 AM EDT - 03/01/2025 10:00 AM EDT Surgery [facility] Endoscopy Admitting Dept Virtual Department [address] [place] [address] Shai Ayon MD [address] [place] [address] COLONOSCOPY 04/10/2025 11:00 AM EST Office [place] [facility] [place] Neuromuscular [place] [address] [facility], [address] [place] [address] Lenny Pendleton MD [address] [facility] [address] [place] [address] [email or web address] 06/09/2025 1:00 PM EST Office Visit [facility] Department of Neurology [address] [facility], 8th Floor, [address] [place] [address] oJhn Chopra MD 55 [place] [address] [email or web address] 07/21/2025 8:40 AM EDT Office Visit [facility] [place] [facility] [address] [facility] [address] [place] [address] Khadra Romo MD 15 [facility] [address] [place] [address] [email or web address] 08/25/2025 11:00 AM EDT Office Visit [facility] 52 [facility], [address] [place] [address] Clementine Brower MD [address] [place] [address] [email or web address] Scheduled Procedures Name Priority Associated Diagnoses Date/Ti me COLONOSCOPY Screen for colon cancer 03/01/2025 9:30 AM EDT documented as of this encounter Visit Diagnoses Not on filedocumented in this encounter Additional Health Concerns Assessment Noted Time PHQ-9 Depression Total Score: 12 06/17/ 024 3:46 PM EST PHQ-2 Depression Total Score: 1 06/28/19 25 2:08 PM EST documented as of this encounter Care Teams Grain Wafer Machine Operator Relationship Specialty Start Date End Date Khadra Romo MD [address] [address] [email or web address] PCP - General Family Medicine 06/12/21 John Chopra MD [address] [place] [address] [email or web address] Neurology 06/17/23 Rai Pendleton-Alonzo Zelaya MD [address] [place] [address] [address] [place] [address] [email or web address] [email or web address] 06/17/23 documented as of this encounter Additional Source Comments The information contained in this document represents components of the legal health record. It is not the complete legal health record.[facility]
--- OUTSIDE RECORDS SUMMARY | 2025-01-19 07:42 | XMS_ITS | Encounter Summary ---
Author Organization [facility] Address [address] [facility] [address] [place] [address] Phone Care Team Providers Care Metal Molder Name Role Phone Khadra Romo MD Primary Care Provider [phone] John Chopra MD Unavailable [phone] Lenny Pendleton MD Unavailable Reason for Visit * Reason Onset Date Comments Patient Returned Call 01/16/2025 Encounter Details Date Type Department Care Team (Late st Contact Info) Description 01/16/2025 Telephone [facility] SUPPORT 2 [place], [place] [id number] Maddison Irizarry CNP 2 [place] [address] [email or web address] Patient Returned Call Social History Tobacco Use [...] feeling fine currently, no concerns. Has called [facility] cardiology to request appointment, has not heard back yet. Was not happy with [facility] and would like to proceed with [facility]. F/U appt scheduled for 01/19 with PCP. [...] Pass [facility] Endoscopy Admitting Dept Virtual Department [address] [place] [address] 03/01/2025 9:30 AM EDT Hospital Encounter [facility] Endoscopy Admitting Dept Virtual Department 30 [place] [address] Shai Ayon MD 10 [facility] 2 [place] [address] [email or web address] 03/01/2025 9:30 AM EDT - 03/01/2025 10:00 AM EDT Surgery [facility] Endoscopy Admitting Dept Virtual Department 30 [place] [address] Shai Ayon MD [address] [address] [email or web address] COLONOSCOPY 04/10/2025 11:00 AM EST Office Visit [facility] Neurology Neuromuscular Platter 52 [facility], [address] [place] [address] Lenny Pendleton MD [address] [place] [address] [address] [place] [address] [email or web address] 06/09/2025 1:00 PM EST Office Visit [facility] Department of Neurology [address] [facility], 8th Floor, [address] [place] [address] John Chopra MD 55 [place] [address] [email or web address] 07/21/2025 8:40 AM EDT Office Visit [facility] Primary [facility] 15 [facility] [address] [place] [address] Khadra Romo MD 15 [facility] Sonny. [address] [place] [address] [email or web address] 08/25/2025 11:00 AM EDT Office Visit [facility] Cardiology [facility] 52 [facility], [address] [place] [address] Clementine Brower MD [address] [place] [address] [email or web address] Scheduled Procedures Name Priority Associated Diagnoses Date/Ti ri COLONOSCOPY Screen for colon cancer 03/01/2025 9:30 AM EDT documented as of this encounter Visit Diagnoses Not on filedocumented in this encounter Additional Health Concerns Assessment Noted Time PHQ-9 Depression Total Score: 12 024 3:46 PM EST PHQ-2 Depression Total Score: 1 06/28/19 25 2:08 PM EST documented as of this encounter Care Teams Metal Molder Relationship Specialty Start Date End Date Khadra Romo MD [address] [address] [email or web address] PCP - General Family Medicine 06/12/21 John Chopra MD 55 [place] [address] [email or web address] [email or web address] 06/17/23 Lenny Pendleton MD [address] [place] [address] 820 [place] [address] [email or web address] Neurology 06/17/23 documented as of this encounter Additional Source Comments The information contained in this document represents components of the legal health record. It is not the complete legal health record.[facility]
--- OUTSIDE RECORDS SUMMARY | 2025-01-19 07:42 | XMS_ITS | Encounter Summary ---
Author Organization [facility] Address [address] [facility] [address] [place] [address] Phone Care Team Providers Care Rn Social Work Name Role Phone Khadra Romo MD Primary Care Provider John Chopra MD Unavailable [phone] Rai Pendleton-Alonzo Zelaya MD Unavailable Encounter Details Date Type Department Care Team (Late st Contact Info) Description 01/18/2025 Orders Only [facility] Family Medicine [address] [place] [address] Unknown, Unknown, Social History Tobacco Use Types [...] Pass [facility] Endoscopy Admitting Dept Virtual Department [address] [place] [address] 03/01/2025 9:30 AM EDT Hospital Encounter [facility] Endoscopy Admitting Dept Virtual Department [address] [place] [address] Shai Ayon MD 10 [facility] 2 [place] [address] 03/01/2025 9:30 AM EDT - 03/01/2025 10:00 AM EDT Surgery [facility] Endoscopy Admitting Dept Virtual Department [address] [place] [address] Shai Ayon MD [address] [address] COLONOSCOPY 04/10/2025 11:00 AM EST Office Visit [facility] Neurology Neuromuscular [address], [address] [place] [address] Rai Pendleton-Alonzo Zelaya MD [address] [place] [address] [address] [place] [address] [email or web address] 06/09/2025 1:00 PM EST Office Visit [facility] Department of Neurology 55 [facility], 8th Floor, [address] [place] [address] John Chopra MD 55 [place] [address] [email or web address] 07/21/2025 8:40 AM EDT Office Visit [facility] Primary Care 15 [facility] [address] [place] [address] Khadra Romo MD [address] [address] [email or web address] 08/25/2025 11:00 AM EDT Office Visit [facility] Cardiology [facility] 52 [facility], [address] [place] [address] Clementine Brower MD [address] [place] [address] [email or web address] Scheduled Procedures Name Priority Associated Diagnoses Date/Ti me COLONOSCOPY Screen for colon cancer 03/01/2025 9:30 AM EDT documented as of this encounter Procedures Procedure Name Priority Date/Time Associated Diagnosis Comments OUTSIDE IMAGING Routine 01/17/2025 8:07 AM EDT documented in this encounter Results * Outside Imaging Report Only (01/17/2025 8:07 AM EDT) us Unknown Unknown IMG XR CHEST Edited Result - Final documented in this encounter Visit Diagnoses Not on filedocumented in this encounter Additional Health Concerns Assessment Noted Time PHQ-9 Depression Total Score: 12 024 3:46 PM EST PHQ-2 Depression Total Score: 1 06/28/19 25 2:08 PM EST documented as of this encounter Care Teams Rn Social Work Relationship Specialty Start Date End Date Khadra Romo MD 15 [facility] 201 [place] [address] [email or web address] PCP - General Family Medicine 06/12/21 John Chopra MD 55 [place] [address] [email or web address] Neurology 06/17/23 Lenny Pendleton MD [address] [place] [address] 820 [place] [address] [email or web address] Neurology 06/17/23 documented as of this encounter Additional Source Comments The information contained in this document represents components of the legal health record. It is not the complete legal health record.[facility]
--- OUTSIDE RECORDS SUMMARY | 2025-01-19 07:42 | XMS_ITS | Encounter Summary ---
Author Organization [facility] Address [address] [facility] [address] [place] [address] Phone Care Team Providers Care Booking Supervisor Name Role Phone Khadra Romo MD Primary Care Provider [phone] John Chopra MD Unavailable [phone] Lenny Pendleton MD Unavailable Reason for Visit * Reason Onset Date Comments Red Call Sudden Altered mental status 01/17/2025 Encounter Details Date Type Department Care Team (Late st Contact Info) Description 01/17/2025 Telephone [facility] Primary Care 15 [facility] [address] [place] [address] Khadra Romo MD 15 [facility] [address] [place] [address] [email or web address] Red Call Sudden Altered mental status Social [...] Progress Notes * Khadra Romo MD - 01/18/2025 7:51 AM EDT Can you please request records from [place]? If admitted, let's follow along to discharge; if sent home, please check in with him today. He has an appointment with me tomorrow so please assess if he will be able to keep that. Thank you * Afia Valencia RN - 01/17/2025 11:05 AM EDT Received callback from Ольга GARLAND. Pt is at the [facility] ED at this time. * Afia Valencia [...] pt gateway message. Called Ольга GARLAND at [phone]. Unable to determine correct dept. Called 911. [...] Pass [facility] Endoscopy Admitting Dept Virtual Department [address] [place] [address] 03/01/2025 9:30 AM EDT Hospital Encounter [facility] Endoscopy Admitting Dept Virtual Department [address] [place] [address] Shai Ayon MD [address] [address] 03/01/2025 9:30 AM EDT - 03/01/2025 10:00 AM EDT Surgery [facility] Endoscopy Admitting Dept Virtual Department [address] [place] [address] Shai Ayon MD [address] [address] COLONOSCOPY 04/10/2025 11:00 AM EST Office Visit [facility] Neurology Neuromuscular [address], [address] [place] [address] Lenny Pendleton MD [address] [place] [address] [address] [place] [address] [email or web address] 06/09/2025 1:00 PM EST Office Visit [facility] Department of Neurology 55 [facility], 8th Floor, [address] [place] [address] John Chopra MD 55 [place] [address] [email or web address] 07/21/2025 8:40 AM EDT Office Visit [facility] Primary Care 15 [facility] [address] [place] [address] Khadra Romo MD 15 [facility] 201 [place] [address] [email or web address] 08/25/2025 11:00 AM EDT Office Visit [facility] Cardiology [facility] 52 [facility], [address] [place] [address] Clementine Brower MD [address] [place] [address] [email or web address] Scheduled Procedures Name Priority Associated Diagnoses Date/Ti me COLONOSCOPY Screen for colon cancer 03/01/2025 9:30 AM EDT documented as of this encounter Visit Diagnoses Not on filedocumented in this encounter Additional Health Concerns Assessment Noted Time PHQ-9 Depression Total Score: 12 024 3:46 PM EST PHQ-2 Depression Total Score: 1 06/28/19 25 2:08 PM EST documented as of this encounter Care Teams Booking Supervisor Relationship Specialty Start Date End Date Khadra Romo MD 15 [facility] [address] [place] [address] [email or web address] PCP - General Family Medicine 06/12/21 John Chopra MD 55 [place] [address] [email or web address] 06/17/23 Lenny Pendleton MD [address] [place] [address] 820 [place] [address] [email or web address] 06/17/23 documented as of this encounter Additional Source Comments The information contained in this document represents components of the legal health record. It is not the complete legal health record.[facility]
--- OUTSIDE RECORDS SUMMARY | 2025-01-19 07:42 | XMS_ITS | Encounter Summary ---
Author Organization [facility] Address [address] [facility] [address] [place] [address] Phone Care Team Providers Care Medical Referral Coordinator Name Role Phone Khadra Romo MD Primary Care Provider [phone] John Chopra MD Unavailable [phone] Lenny Pendleton MD Unavailable Encounter Details Date Type Department Care Team (Late st Contact Info) Description 01/21/2024 Transcribe Orders [facility] Specimen Processing 30 [place] [address] Khadra Romo MD 15 [facility] [address]ny[address] [place] [address] Social History Tobacco Use Types Packs/Day Years [...] high school, GED, job training, learning the Colombian language, technical skills, or developing parenting skills)? [...] Pass [facility] Endoscopy Admitting Dept Virtual Department [address] [place] [address] 03/01/2025 9:30 AM EDT Hospital Encounter [facility] Endoscopy Admitting Dept Virtual Department [address] [place] [address] Shai Ayon MD 10 [facility] 2 [place] [address] 03/01/2025 9:30 AM EDT - 03/01/2025 10:00 AM EDT Surgery [facility] Endoscopy Admitting Dept Virtual Department [address] [place] [address] Shai Ayon MD [address] [address] COLONOSCOPY 04/10/2025 11:00 AM EST Office Visit [facility] Neurology Neuromuscular [address], [address] [place] [address] Lenny Pendleton MD 165 [facility] [address] [place] [address] [email or web address] 06/09/2025 1:00 PM EST Office Visit [facility] Department of Neurology 55 [facility], 8th Floor, [address] [place] [address] John Chopra MD 55 [place] [address] [email or web address] 07/21/2025 8:40 AM EDT Office Visit [facility] [address] [place] [address] Khadra Romo MD 15 [facility] [address] [place] [address] [email or web address] 08/25/2025 11:00 AM EDT Office Visit [facility] Cardiology [facility] 52 [facility], [address] [place] [address] Clementine Brower MD [address] [place] [address] [email or web address] Scheduled Procedures Name Priority Associated Diagnoses Date/Ti me COLONOSCOPY Screen for colon cancer 03/01/2025 9:30 AM EDT documented as of this encounter Visit Diagnoses Not on filedocumented in this encounter Additional Health Concerns Assessment Noted Time PHQ-9 Depression Total Score: 12 024 3:46 PM EST PHQ-2 Depression Total Score: 4 06/23/19 24 11:49 PM EST documented as of this encounter Care Teams Medical Referral Coordinator Relationship Specialty Start Date End Date Khadra Romo MD 15 [facility] [address] [place] [address] [email or web address] PCP - General Family Medicine 06/12/21 John Chopra MD 55 [place] [address] [email or web address] Neurology 06/17/23 Lenny Pendleton MD [address] [place] [address] 820 [place] [address] [email or web address] Neurology 06/17/23 documented as of this encounter Additional Source Comments The information contained in this document represents components of the legal health record. It is not the complete legal health record.[facility]
[2025-01-19 07:56] VITALS: BP 112/69; PULSE 49; RESP 20; TEMP 36.1; O2SAT 99
[2025-01-19 11:19] VITALS: BP 127/72; PULSE 51; RESP 20; TEMP 36.8; O2SAT 96
--- NOTE | 2025-01-19 12:14 | PM.DS ---
DS: Providers Provider Date of Service: 01/19/25 Date of admission: 01/18/25 09:05 Date of discharge: 01/19/25 Primary care physician: Khadra Romo MD Consults: 01/17/25 14:50 Consult to Neurology Routine Consulting Provider: Virginia Childress Reason for consultation: TIA DS: Diagnosis Discharge Diagnosis (1) CVA (cerebral vascular accident): Status: Acute DS: Summary Hospital Course Hospital Course: 69-year-old male, with a background history of HLD, depression, anxiety, orthostatic hypo/HTN, CIDP, recently diagnosed pericarditis started on high-dose NSAIDs/colchicine, presents with right upper extremity paresthesia and depersonalization with weakness, admitted for acute left frontal lobe CVA identified on MRI. Acute Left frontal lobe CVA HLD Head CT performed without concerning findings MRI brain was performed 01/17 19:00, revealing posterior left frontal lobe small CVA. Permissive HTN was allowed for 24 hours, along with optimizing medications. We continued aspirin 81 mg OD p.o., discontinue pravastatin start atorvastatin 80 mg OD p.o. Neurology was consulted, with no further recommendations for interventions. Echocardiogram was repeated, revealing normal LVEF without valvulopathy. CTA head and neck was performed, without evidence of carotid artery stenosis. Neurology has cleared patient for discharge, with close follow up in the outpatient setting. Given recent CVA, and lack of clinical data associating use of Adderall with strokes, would continue to hold for the interim, to avoid labile blood pressures. Furthermore, given his recent CVA, I recommended the patient to discontinue his ibuprofen given increased risk of neurovascular instability, and possible stroke progression. Pericarditis Orthostatic hypotension Orthostatic hypotension PLAN - hold Adderall - HOLD IBUPROFEN given increased risk of neurovascular instability - repeat echocardiography - colchicine 0.6 mg OD p.o. - follow up Cardiology outpatient setting regarding pericarditis CIDP Being evaluated for CIDP by Neurology at [facility]. Obtaining documentation from hospital for consolidation of medical problems. Status at Discharge Functional status at discharge: independent ambulation Overall status at discharge: patient is back to baseline Time Attestation Total time managing care of this patient today: 45 mintues. Discharge Coordination Time (in mins): 15 Quality: Safe Use of Opioids Does Pt have an Active Cancer Diagnosis on the Problem List?: No Quality: Stroke Does the patient have a stroke diagnosis?: Yes Reason for No Anti-thrombotic at DC: N/A - Med Ordered Reason for No Anticoagulant at DC: Not indicated Reason Not Initiating IV-Tpa: Not indicated Reason for No Anti-thrombotic by Day Two: Not indicated Reason for No Statin at DC: N/A - Med Ordered Physical Exam Exam: Exam: General: A&O x3, oriented to time place person and situation, comfortable, no pain Cardiac: S1, S2 auscultated with no S3/4, no MRG. Well perfused. Respiratory: Normal breath sounds auscultated throughout all lung zones, without wheezing, rales. Normal rate. GI/ : No abdominal pain on palpation, no masses or distentions. MSK: Normal ambulation without pain at bony prominences or musculature Neurological: Normal neurological examination on overview, without obvious CN II-XII abnormalities. Vital Signs: Vital Signs: Last Vital Signs Temp 98.2 F 01/19/25 11:19 Pulse 51 01/19/25 11:19 Resp 20 01/19/25 11:19 BP 127/72 01/19/25 11:19 Pulse Ox 96 01/19/25 11:19 O2 Del Method Room Air 01/19/25 11:19 BMI result Body Mass Index 25.7 Discharge Plan Discharge Anticipated Discharge Date/Time: 01/19/25 12:17 Patient Disposition: Home, Self-Care Discharge Diagnosis: Acute CVA Referrals: Khadra Romo MD [Primary Care Provider, [facility]] - 1 Week Discharge Medications: New aspirin 81 mg Tablet,Chewable 81 mg PO DAILY 30 Days Qty: 30 0RF atorvastatin 80 mg Tablet 80 mg PO BEDTIME 30 Days Qty: 30 0RF Continued lamotrigine [Lamictal] 200 mg tablet 200 mg PO BEDTIME lamotrigine 100 mg tablet 300 mg PO DAILY melatonin 5 mg tablet,disintegrating 5 mg PO BEDTIME PRN (Reason: insomnia) omeprazole 20 mg capsule,delayed release(DR/EC) 20 mg PO BID@0630,1630 colchicine 0.6 mg tablet 0.6 mg PO DAILY ropinirole 2 mg tablet extended release 24 hr 2 mg PO BEDTIME Qty: 30 6RF Discontinued ibuprofen 800 mg tablet 800 mg PO TID 14 Days Qty: 42 0RF dextroamphetamine-amphetamine 20 mg tablet 1 tab PO BID@0800,1200 lovastatin 20 mg tablet 20 mg PO DAILY Discharge Orders: Discharge Order (Routine); Ordered 01/19/25 Ordered By: Fani Turpin Diet: Advance to usual diet Activity on Discharge: As tolerated Stand Alone Forms: Patient Portal Discharge page Print Language: Nepalese Care Plan Goals: As above Health Concerns: As above Plan of Treatment: - follow up Neurology outpatient setting - follow up PCP within 1 week of discharge - continue aspirin - continue atorvastatin 80 mg - stop pravastatin - stop Adderall - stop ibuprofen - continue colchicine - follow up outpatient Cardiology for management of pericarditis within 1 week of discharge - follow up PCP within 1 week of discharge Assessment: Patient is hemodynamically stable with no persistent focal neurological deficits, or evidence of acute indicators for continued inpatient admission. Shared decision-making to discharge patient home, with close follow up
--- NOTE | 2025-01-19 12:54 | MHC.CM.PN ---
Patient is discharged to home self care. His car is in the [facility] lot. He states that he feels safe to drive himself home.
== END 2025-01-19 13:15 | disposition home or self-care (01) | DRG 65 ==
LOC: HO.ED 11:37 → HO.IMC 17:09 → HO.EDOVER 01-19 07:40
PROVIDERS: Physician Assistant Medical; Admitting Provider Nurse Practitioner Acute Care; Emergency Provider Emergency Medicine; PCP Family Medicine; Visit Provider Hospitalist
DX: I63.89 Other cerebral infarction (principal); G61.81 Chronic inflammatory demyelinating polyneuritis; G81.91 Hemiplegia, unspecified affecting right dominant side; I31.9 Disease of pericardium, unspecified; K21.9 Gastro-esophageal reflux disease without esophagitis; G25.81 Restless legs syndrome; F90.9 Attention-deficit hyperactivity disorder, unspecified type; I95.1 Orthostatic hypotension; R20.2 Paresthesia of skin; G90.9 Disorder of the autonomic nervous system, unspecified; R29.700 NIHSS score 0; Z79.899 Other long term (current) drug therapy
CPT/HCPCS: 36415; 70450; 70496; 70498; 70551; 80048; 80061; 81003; 83036; 84484; 85025; 85610; 85730; 93005; 93306; 97161; 97165; 99222; 99285; J1650

== ENCOUNTER → 2025-01-17 10:25 | Outpatient (BNV) | payer MEDICARE, SELFPAY | PROVIDERS: Emergency Provider Emergency Medicine; Visit Provider Radiology Diagnostic Radiology | DX: R20.2 Paresthesia of skin (principal); I63.81 Other cerebral infarction due to occlusion or stenosis of small artery | CPT/HCPCS: 70450; 70496; 70498; 70551 ==

== ENCOUNTER → 2025-01-17 10:25 | Outpatient (BNV) | payer MEDICARE, SELFPAY | PROVIDERS: Admitting Provider Nurse Practitioner Acute Care; Emergency Provider Emergency Medicine; PCP Family Medicine; Visit Provider Internal Medicine | DX: R00.1 Bradycardia, unspecified (principal) | CPT/HCPCS: 93010 ==

== ENCOUNTER 2025-01-17 13:55 | Outpatient (BNV) | payer MEDICARE, SELFPAY | END 2025-01-18 07:00 | PROVIDERS: Admitting Provider Nurse Practitioner Acute Care; Emergency Provider Emergency Medicine; PCP Family Medicine; Visit Provider Internal Medicine | DX: R94.31 Abnormal electrocardiogram [ECG] [EKG] (principal) | CPT/HCPCS: 93306 ==

== ENCOUNTER → 2025-01-17 13:55 | Outpatient (BNV) | payer MEDICARE, SELFPAY | PROVIDERS: Admitting Provider Nurse Practitioner Acute Care; Emergency Provider Emergency Medicine; PCP Family Medicine; Visit Provider Nurse Practitioner Acute Care | DX: I63.9 Cerebral infarction, unspecified (principal); R76.8 Other specified abnormal immunological findings in serum; E78.5 Hyperlipidemia, unspecified; G62.89 Other specified polyneuropathies; G25.81 Restless legs syndrome; I10 Essential (primary) hypertension; G45.9 Transient cerebral ischemic attack, unspecified | CPT/HCPCS: 99223; 99233 ==

== ENCOUNTER 2025-02-02 16:59 | Inpatient (IN) | payer MEDICARE, SELFPAY ==
--- NOTE | ~2025-02-02 | CT_ITS ---
CLINICAL HISTORY: ? pe sob no iv 20:10 CT angiography chest with contrast. 3D Postprocessing. Comparison: None provided Findings: Heart size within normal limits. Moderate pericardial effusion up to 1.5 cm in thickness posteriorly. The thoracic aorta is normal caliber. No acute pulmonary embolus. The visualized thyroid and mediastinum are unremarkable. Small bilateral pleural effusions with mild dependent atelectasis both lungs. Trace perisplenic ascites. The bones are intact. IMPRESSION: 1. No acute pulmonary embolus. 2. Small bilateral pleural effusions, moderate pericardial effusion, and trace perisplenic ascites of uncertain etiology. Follow-up as needed. This document has been electronically signed by: Navin Hagan MD on 02/03/2025 00:42:10
--- NOTE | ~2025-02-02 | XR_ITS ---
CLINICAL HISTORY: chest pain 1 view chest x-ray. Comparison: 01/14/2025 Findings: No consolidation No pneumothorax. Heart size normal. No acute fracture. Impression: Lungs are clear. This document has been electronically signed by: Ant Tinsley MD on 02/02/2025 19:04:44
[2025-02-02 17:04] VITALS: BP 158/88; PULSE 89; RESP 20; TEMP 37; O2SAT 99; BMI 24.6
--- NOTE | 2025-02-02 17:10 | ECG_ITS ---
Test Reason : CP Blood Pressure : */* mmHG Vent. Rate : 87 BPM Atrial Rate : 87 BPM P-R Int : 168 ms QRS Dur : 86 ms QT Int : 314 ms P-R-T Axes : 95 70 53 degrees QTcB Int : 377 ms Normal sinus rhythm Nonspecific ST and T wave abnormality Abnormal ECG When compared with ECG of 17-Jan-2025 10:57, Vent. rate has increased by [address] no longer elevated in Lateral leads Nonspecific T wave abnormality, worse in Inferior leads T wave inversion now evident in Lateral leads Referred By: Tj Castañeda Electronically Signed By: GARY TAVERAS
--- NOTE | 2025-02-02 17:12 | ED.GENADULT ---
HPI - General Adult General Chief complaint: General Medical Stated complaint: not feeling well here x2 this wk Time Seen by Provider: 02/02/25 18:25 History of Present Illness HPI narrative: Patient is a 69-year-old male with a history of CVA history of pericarditis the pericarditis was on January 14. The stroke was on January 17. Currently only on aspirin not on any other blood thinners. Has a history of being on colchicine and NSAID for the pericarditis. Patient complaining of generalized malaise weakness shortness of breath. The shortness of breath is worse with deep breath. Mild pain on deep breath. Patient from home. No fever no chills. No coughing or congestion or upper respiratory symptoms. No diaphoresis. Patient is from home feels very weak. Feels nauseous at time. No vomiting no diarrhea. From home. No travel history. Having a difficult time sleeping. Highly anxious. Related Data Home Medications ?Medication ?Instructions ?Recorded ?Confirmed colchicine 0.6 mg tablet 0.6 mg PO DAILY 01/17/25 01/17/25 lamotrigine 100 mg tablet 300 mg PO DAILY 01/17/25 01/17/25 lamotrigine 200 mg tablet 200 mg PO BEDTIME 01/17/25 01/17/25 (Lamictal) melatonin 5 mg disintegrating 5 mg PO BEDTIME PRN insomnia 01/17/25 01/17/25 tablet omeprazole 20 mg capsule,delayed 20 mg PO BID@0630,1630 01/17/25 01/17/25 release Previous Rx's ?Medication ?Instructions ?Recorded ropinirole 2 mg tablet,extended 2 mg PO BEDTIME #30 tabs 02/13/23 release 24 hr aspirin 81 mg chewable tablet 81 mg PO DAILY 30 days #30 tabs 01/19/25 atorvastatin 80 mg tablet 80 mg PO BEDTIME 30 days #30 tabs 01/19/25 Allergies Allergy/AdvReac Type Severity Reaction Status Date / Time No Known Allergies Allergy Verified 02/02/25 17:11 Review of Systems Review of Systems: Positive generalized malaise PMFSH Past Medical History Attestation statement: The following information was validated with the patient. Source: unable to obtain Medical History Cognitive disorder Back pain Anxiety Depression Hyperlipidemia Non-melanoma skin cancer Surgical History H/O cervical spine surgery History of ear surgery Family History Family History Father Myocardial infarction Family/Other Cancer Family/Other Breast cancer Mother Skin cancer Social History Social History Household Members: Spouse Housing: House Do you presently have visiting nurse or other home services: No Alcohol intake: current Alcohol intake frequency: holidays/special occasions only Alcohol type: beer and hard liquor Patient Tobacco Use Status: Never used Tobacco Smoked in Last 30 Days: No e-Cigarette/Vaping Use: Never Used Use of substances other than those prescribed or required for medical reasons: No Advance Directives: No Advance Directives Information Provided: No service: No Current occupational status: employed 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 Oriented X3. No acute distress. Eyes: Pupils equal, round and reactive to light. ENT: Pharynx normal. Neck: Normal inspection. Neck supple. No lymph nodes noted. No crepitus CVS: Normal heart rate and rhythm. Pulses normal. Normal S1 and S2 Respiratory: No respiratory distress. Breath sounds normal. No Wheezing. No rales Abdomen: Soft and nontender. No rigidity. No distention. good BS x4 Skin: Skin warm and dry. Normal skin color. Normal skin turgor. Extremities: No lower extremity edema. Neurovascular intact to all extremities. No Lacerations. No Rash Neuro: Oriented X 3. No motor deficit. No sensory deficit. Moving all extermities. No slurred speech Vital Signs: Vital Signs - 24 hr 02/02/25 17:04 02/02/25 19:32 02/02/25 21:24 Temperature 98.6 F 99.1 F 99.2 F Pulse Rate 89 82 82 Respiratory Rate 20 18 16 Blood Pressure 158/88 H 104/72 136/87 Pulse Oximetry 99 97 97 Oxygen Delivery Method Room Air Room Air Room Air 02/03/25 00:16 Temperature 99.4 F Pulse Rate 72 Respiratory Rate 18 Blood Pressure 105/73 Pulse Oximetry 97 Oxygen Delivery Method Room Air BMI result Body Mass Index 24.6 Course Course Course Narrative: RmE: 69-year-old male with pmh presents to the ED chest pain and not feeling well. had pericarditits two weeks ago. Also stroke two weeks ago. NIH score 0. Labs, EkG ordered. patient denies any neuro symptmos. Medications Administered Discontinued Medications Generic Name Dose Route Start Last Admin Trade Name Rolandq PRN Reason Stop Dose Admin Iohexol 65 ml 02/02/25 23:19 02/02/25 23:19 Iohexol 350 Mg/Ml 100 Ml Infus..Btl IV 02/02/25 23:20 65 ml ONCE ONE Administration Medical Decision Making Medical Decision Making [facility] Narrative: My interpretation patient's EKG shows sinus rhythm heart rate is 70 DC QRS QTC normal there is T-wave inversion over the lateral leads this is new when compared to previous EKGs. Patient troponin is normal. Has a history of pericarditis. CRP and sed rate are elevated. Sed rate at 25 CRP at 17.39. BNP is normal at 231 no signs of failure patient claims his pain is worse with deep breath. No leg swelling no history of blood clots. Will get a CT angio of the chest. Patient's hemoglobin is 13 there is no evidence for anemia. Kidney function is normal creatinine is 0.92. LFTs are normal COVID flu RSV were all negative. My interpretation patient's chest x-ray is grossly negative there is no pneumonia no pneumothorax. CTA of the chest was done. CTA of the chest today per radiology's showed signs of pericardial effusion. There is no evidence for pulmonary emboli there is no pneumonia no pneumothorax. Will review patient's previous cardiology's report including echo done on January 18 at that time there was no pericardial effusion. Will admit for further evaluation likely echo in a.m.. Differential Diagnosis Differential Diagnoses: The differential diagnosis associated with the presentation includes PE, pericardial effusion, pericarditis, myocarditis Admission/Observation Consideration of admission/observation: Escalation of care including admission/observation considered Consult Healthcare Provider Management of the patient was discussed with: Hospitalist and Camp Program Director (Cardiology) Lab Data [facility] Lab Attestation statement: I reviewed the patient's lab results. 02/02/25 17:23 02/02/25 17:23 Labs: Lab Results 02/02/25 Range/Units 17:23 WBC 8.9 (4.8-10.8) X10*3/uL RBC 4.24 L (4.60-5.80) X10*6/uL Hgb 13.1 L (14.0-18.0) g/dl Hct 37.4 L (42.0-52.0) % MCV 88.2 (80.0-98.0) fL MCH 30.9 (27.0-33.0) pg MCHC 35.0 (31.0-36.0) g/dl RDW 13.2 (11.0-16.0) % Plt Count 212 (160-400) X10*3/uL MPV 10.3 (9.4-12.4) fL Immature Gran % (Auto) 0.2 (0.0-0.4) % Neut % (Auto) 73.3 H (45-73) % Lymph % (Auto) 18.6 L (20-40) % Hamblen % (Auto) 7.5 (2-11) % Eos % (Auto) 0.3 (0-4) % Baso % (Auto) 0.1 (0-2) % Lymph # (Auto) 1.7 (1.2-4.9) X10*3/uL Hamblen # (Auto) 0.7 (0.1-1.2) X10*3/uL Eos # (Auto) 0.0 (0.0-0.4) X10*3/uL Baso # (Auto) 0.0 (0.0-0.2) X10*3/uL Abs Immat Gran (auto) 0.02 (0.00-0.03) X10*3/uL Absolute Neuts (auto) 6.5 (2.0-8.3) x10*3/uL Absolute Nucleated RBC 0.000 (0.0-0.012) X10*3/uL Nucleated RBC % (auto) 0.0 (0.0-0.2) /100WBC ESR 25 H (0-15) MM/HR Sodium 133 L (135-145) mmol/L Potassium 4.2 (3.3-5.1) mmol/L Chloride 99 (96-108) mmol/L Carbon Dioxide 26 (22-29) mmol/L Anion Gap 12 (12-20) BUN 17 H (9-16) mg/dL Creatinine 0.92 (0.5-1.4) mg/dL Estim Creat Clear Calc 82.0 Estimated GFR > 60 Random Glucose 167 H (60-115) mg/dL Calcium 8.7 (8.4-10.2) mg/dL Total Bilirubin 1.0 (0.0-1.0) mg/dL AST 17 (5-37) U/L ALT 22 (0-40) U/L Alkaline Phosphatase 63 (39-117) U/L Troponin I High Sens 4.0 D (<3.5-35.0) ng/L C-Reactive Protein 17.39 H (< or = 0.50) mg/dL NT-Pro-B Natriuret Pep 231.0 (<300) pg/mL Total Protein 7.0 (6.5-8.0) g/dL Albumin 4.3 (3.5-5.0) g/dL COVID-19 (LISSETH) Negative (Negative) COVID-19 Clin Com See Note Influenza Type A (KAITLIN) Negative (Negative) Influenza Type B (KAITLIN) Negative (Negative) Influenza A & B Note See Note Independent Interpretation I performed an independent interpretation of an: EKG (Patient's EKG showed a sinus pattern heart rate is 70 DC QRS QTC normal limits there is T-wave inversion over the lateral leads which is new when compared to a previous EKG from 2 weeks ago) and CT Scan (CTA showed no large PE no pneumonia) Radiology Impression Discussion of test interpretation with radiology: I have reviewed the radiologist's reading. External Record Review External record reviewed: Inpatient record Previous echo report Chronic Conditions History of pericarditis history of TIA Social Determinants Patient?s care significantly limited by Social Determinants of Health including: Problems related to primary support group Critical Care Time Critical Care Time Critical Care Time: Yes Total Critical Care Time: 40 Attestation: I have personally provided 40 minutes of critical care time exclusive of time spent on separately billable procedures. ?Time includes review of lab data, radiology results, discussion with consultants, and monitoring for potential decompensation. ?Interventions were performed as documented above Discharge Plan Discharge Clinical Impression: Acute pericardial effusion Patient Disposition: Admitted As Inpatient Print Language: Bulgarian
[2025-02-02 17:28] LABS: MANUAL DIFF FLAG NO
[2025-02-02 17:32] LABS: Hematocrit 37.4 % (42.0-52.0); Hemoglobin 13.1 g/dl (14.0-18.0); Imm Gran Abs Auto 0.02 X10*3/uL (0.00-0.03); Imm Gran Pct Auto 0.2 % (0.0-0.4); Lymphocytes Absolute Auto 1.7 X10*3/uL (1.2-4.9); Mean Corpuscular HGB Conc 35.0 g/dl (31.0-36.0); Mean Corpuscular Hemoglobin 30.9 pg (27.0-33.0); Mean Corpuscular Volume 88.2 fL (80.0-98.0); NRBC Abs Auto 0.000 X10*3/uL (0.0-0.012); NRBC Pct Auto 0.0 /100WBC (0.0-0.2); Platelet Count 212 X10*3/uL (160-400); Red Blood Count 4.24 X10*6/uL (4.60-5.80); White Blood Count 8.9 X10*3/uL (4.8-10.8)
[2025-02-02 17:46] LABS: COVID-19 Test Negative (Negative); IDNOW Serial# 6674DD1D
[2025-02-02 17:52] LABS: Alanine Aminotransferase 22 U/L (0-40); Albumin Level 4.3 g/dL (3.5-5.0); Alkaline Phosphatase 63 U/L (39-117); Anion Gap 12 (12-20); Aspartate Amino Transferase 17 U/L (5-37); Blood Urea Nitrogen 17 mg/dL (9-16); Calcium 8.7 mg/dL (8.4-10.2); Carbon Dioxide 26 mmol/L (22-29); Chloride 99 mmol/L (96-108); Creatinine Clr Calc Pharmacy 82.0; Estimated Glomerular Filt Rate > 60; Potassium 4.2 mmol/L (3.3-5.1); Sodium 133 mmol/L (135-145); Total Protein 7.0 g/dL (6.5-8.0)
[2025-02-02 17:56] LABS: NT Pro B Type Natriuretic Pept 231.0 pg/mL (<300); Troponin-I High Sensitivity 4.0 ng/L (<3.5-35.0)
[2025-02-02 18:05] LABS: IDNOW Serial# 55D5AD1C; Influenza B2 Negative (Negative)
--- OUTSIDE RECORDS SUMMARY | 2025-02-02 18:28 | XMS_ITS | Encounter Summary ---
Author Organization [facility] Address [address] [facility] [address] [place] [address] Phone Care Team Providers Care Gamma Facilities Operator Name Role Phone Khadra Romo MD Primary Care Provider [phone] John Chopra MD Unavailable [phone] Rai Pendleton-Alonzo Zelaya MD Unavailable Encounter Details Date Type Department Care Team (Late st Contact Info) Description 01/21/2024 Transcribe Orders [facility] Specimen Processing 30 [place] [address] Khadra Romo MD 15 [facility] [address] [place] [address] Social History Tobacco Use Types Packs/Day Years [...] [facility] Endoscopy Admitting Dept Virtual Department [address] [place] [address] 03/01/2025 9:30 AM EDT Hospital Encounter [facility] Endoscopy Admitting Dept Virtual Department [address] [place] [address] Shai Ayon MD 10 [facility] 2 [place] [address] 03/01/2025 9:30 AM EDT - 03/01/2025 10:00 AM EDT Surgery [facility] Endoscopy Admitting Dept Virtual Department [address] [place] [address] Shai Ayon MD [address] [address] COLONOSCOPY 04/10/2025 11:00 AM EST Office [place] [facility] [place] Neuromuscular [address], [address] [place] [address] Lenny Pendleton MD [address] [place] [address] [address] [place] [address] [email or web address] 06/09/2025 1:00 PM EST Office Visit [facility] Department of Neurology [address] [facility], 8th Floor, [address] [place] [address] John Chopra MD 55 [facility] 835 [place] [phone] [email or web address] 07/21/2025 8:40 AM EDT Office Visit [facility] Primary Care [address] [facility] [address] [place] [address] Khadra Romo MD 15 [facility] 201 [place] [address] [email or web address] 08/25/2025 11:00 AM EDT Office [place] [facility] [place] [facility] [address] [facility], [address] [place] [address] Clementine Brower MD [address] [place] [address] [email or web address] Scheduled Procedures Name Priority Associated Diagnoses Date/Ti vt COLONOSCOPY Screen for colon cancer 03/01/2025 9:30 AM EDT documented as of this encounter Visit Diagnoses Not on filedocumented in this encounter Additional Health Concerns Assessment Noted Time PHQ-9 Depression Total Score: 12 024 3:46 PM EST PHQ-2 Depression Total Score: 4 06/23/19 24 11:49 PM EST documented as of this encounter Care Teams Gamma Facilities Operator Relationship Specialty Start Date End Date Khadra Romo MD 15 [facility] 201 [place] [address] [email or web address] PCP - General Family Medicine 06/12/21 John Chopra MD [address] [place] [phone] [email or web address] [email or web address] 06/17/23 Lenny Pendleton MD [address] [place] [address] [address] [place] [address] [email or web address] [email or web address] 06/17/23 documented as of this encounter Additional Source Comments The information contained in this document represents components of the legal health record. It is not the complete legal health record.[facility]
--- OUTSIDE RECORDS SUMMARY | 2025-02-02 18:28 | XMS_ITS | Encounter Summary ---
Author Organization [facility] Address [address] [employer] [facility] [address] [place] [address] Phone Care Team Providers Care Kitchen Lead Name Role Phone Khadra Romo MD Primary Care Provider [phone] John Chopra MD Unavailable [phone] Lenny Pendleton MD Unavailable Reason for Visit * Reason Onset Date Comments Patient Returned Call 01/16/2025 Encounter Details Date Type Department Care Team (Late st Contact Info) Description 01/16/2025 Telephone [facility] SUPPORT 2 [place], [place] [phone] Maddison Irizarry CNP 2 [place] [phone] [email or web address] Patient Returned Call Social History Tobacco Use [...] feeling fine currently, no concerns. Has called [facility] cardiology to request appointment, has not heard back yet. Was not happy with [facility] and would like to proceed with [facility]. F/U appt scheduled for 01/19 with PCP. [...] Pass [facility] Endoscopy Admitting Dept Virtual Department [address] [place] [address] 03/01/2025 9:30 AM EDT Hospital Encounter [facility] Endoscopy Admitting Dept Virtual Department 30 [place] [address] Shai Ayon MD 10 [facility] 2 [place] [address] 03/01/2025 9:30 AM EDT - 03/01/2025 10:00 AM EDT Surgery [facility] Endoscopy Admitting Dept Virtual Department 30 [place] [address] Shai Ayon MD [address] [address] [email or web address] COLONOSCOPY 04/10/2025 11:00 AM EST Office Visit [facility] [place] Neuromuscular [place] [address] [facility], [address] [place] [address] Lenny Pendleton MD [address] [place] [address] [address] [place] [address] [email or web address] 06/09/2025 1:00 PM EST Office Visit [facility] Department of Neurology [address] [facility], 8th Floor, [address] [place] [address] John Chopra MD 55 [facility] 835 [place] [address] [email or web address] 07/21/2025 8:40 AM EDT Office Visit [facility] [place] Primary Care [address] [facility] [address] [place] [address] Khadra Romo MD 15 [facility] [address] [place] [address] [email or web address] 08/25/2025 11:00 AM EDT Office Visit [facility] [address] [facility], [address] [place] [address] Clementine Brower MD [address] [place] [phone] [email or web address] Scheduled Procedures Name Priority Associated Diagnoses Date/Ti me COLONOSCOPY Screen for colon cancer 03/01/2025 9:30 AM EDT documented as of this encounter Visit Diagnoses Not on filedocumented in this encounter Additional Health Concerns Assessment Noted Time PHQ-9 Depression Total Score: 12 024 3:46 PM EST PHQ-2 Depression Total Score: 1 06/28/19 25 2:08 PM EST documented as of this encounter Care Teams Kitchen Lead Relationship Specialty Start Date End Date Khadra Romo MD [address] [address] [email or web address] PCP - General Family Medicine 06/12/21 John Chopra MD [address] [place] [phone] [email or web address] 06/17/23 Lenny Pendleton MD [address] [place] [address] [address] [place] [address] [email or web address] 06/17/23 documented as of this encounter Additional Source Comments The information contained in this document represents components of the legal health record. It is not the complete legal health record.[facility]
--- OUTSIDE RECORDS SUMMARY | 2025-02-02 18:28 | XMS_ITS | Encounter Summary ---
Author Organization [facility] Address [address] [facility] [address] [place] [address] Phone Care Team Providers Care Musical Performer Name Role Phone Khadra Romo MD Primary Care Provider [phone] John Chopra MD Unavailable Lenny Pendleton MD Unavailable Encounter Details Date Type Department Care Team (Late st Contact Info) Description 11/10/2023 Procedure Pass [facility], [address] [address] Social History Tobacco Use Types Packs/Day Years [...] high school, GED, job training, learning the Yakut language, technical skills, or developing parenting skills)? [...] [facility] Endoscopy Admitting Dept Virtual Department [address] [place] [address] 03/01/2025 9:30 AM EDT Hospital Encounter [facility] Endoscopy Admitting Dept Virtual Department 30 [place] [address] Shai Ayon MD 10 [facility] 2 [place] [address] 03/01/2025 9:30 AM EDT - 03/01/2025 10:00 AM EDT Surgery [facility] Endoscopy Admitting Dept Virtual Department 30 [place] [address] Shai Ayon MD [address] [address] COLONOSCOPY 04/10/2025 11:00 AM EST Office Visit [facility] [place]rology Neuromuscular [address], [address] [place] [address] Lenny Pendleton MD [address] [place] [address] [address] [place] [address] [email or web address] 06/09/2025 1:00 PM EST Office Visit [facility] Department of Neurology [address] [place] [address], 8th Floor, [address] [place] [address] John Chopra MD 55 [facility] 835 [place] [phone] [email or web address] 07/21/2025 8:40 AM EDT Office [facility] [place] [facility] [address] [facility] [address] [place] [address] Khadra Romo MD 15 [facility] [address] [place] [address] 08/25/2025 11:00 AM EDT Office Visit [facility] [address] [facility], [address] [place] [address] Clementine Brower MD [address] [place] [address] [email or web address] Scheduled Procedures Name Priority Associated Diagnoses Date/Ti id COLONOSCOPY Screen for colon cancer 03/01/2025 9:30 AM EDT documented as of this encounter Visit Diagnoses Not on filedocumented in this encounter Additional Health Concerns Assessment Noted Time PHQ-9 Depression Total Score: 12 024 3:46 PM EST PHQ-2 Depression Total Score: 4 06/23/19 24 11:49 PM EST documented as of this encounter Care Teams Musical Performer Relationship Specialty Start Date End Date Khadra Romo MD [address] [address] [email or web address] PCP - General Family Medicine 06/12/21 John Chopra MD [address] [place] [phone] [email or web address] Neurology 06/17/23 Lenny Pendleton MD [address] [place] [address] [address] [place] [address] [email or web address] 06/17/23 documented as of this encounter Additional Source Comments The information contained in this document represents components of the legal health record. It is not the complete legal health record.[facility]
--- OUTSIDE RECORDS SUMMARY | 2025-02-02 18:28 | XMS_ITS | Encounter Summary ---
Author Organization [facility] Address [address] [facility] [address] [place] [address] Phone Care Team Providers Care Housekeeping Assistant Name Role Phone Khadra Romo MD Primary Care Provider [phone] John Chopra MD Unavailable [phone] Lenny Pendleton MD Unavailable Reason for Visit * Reason Onset Date Comments Labs Only 12/23/2024 Encounter Details Date Type Department Care Team (Late st Contact Info) Description 12/23/2024 Telephone [email or web address] [facility] Primary Care 15 [facility] [address] [place] [address] Khadra Romo MD 15 [facility] [address] [place] [address] [email or web address] Labs Only Social History Tobacco Use Types [...] EDT Dr. Simons psych provider from [facility] stating he has abnormal labs he wants to fax to PCP ( elevated Mg). Looking for fax number which was provided. FYI to PCP re labs documented in this encounter Plan of Treatment Upcoming Encounters Date Type Department Care Team (Late st Contact Info) Description 03/01/2025 Procedure Pass [facility] Admitting Dept Virtual Department [address] [place] [address] 03/01/2025 9:30 AM EDT Hospital Encounter [facility] End[facility] Admitting Dept Virtual Department [address] [place] [address] Shai Ayon MD [address] [place] [address] 03/01/2025 9:30 AM EDT - 03/01/2025 10:00 AM EDT Surgery [facility] Endoscopy Admitting Dept Virtual Department [address] [place] [address] Shai Ayon MD [address] [place] [address] COLONOSCOPY 04/10/2025 11:00 AM EST Office Visit [facility] Neurology Neuromuscular [place] [address] [facility], [address] [place] [address] Lenny Pendleton MD [address] [facility] [address] [place] [address] [email or web address] 06/09/2025 1:00 PM EST Office Visit [facility] Department of Neurology 55 [facility], 8th Floor, [address] [place] [address] John Chopra MD 55 [facility] 835 [place] [phone] [email or web address] 07/21/2025 8:40 AM EDT Office Visit [facility] Primary Care 15 [facility] [address] [place] [address] Khadra Romo MD 15 [facility] [address] [place] [address] [email or web address] 08/25/2025 11:00 AM EDT Office Visit [facility] Cardiology [facility] [address] [facility], [address] [place] [address] Clementine Brower MD 40 [facility], [address] [place] [address] [email or web address] Scheduled Procedures [...] documented as of this encounter Care Teams Housekeeping Assistant Relationship Specialty Start Date End Date Khadra Romo MD 15 [facility] [address] [place] [address] [email or web address] PCP - General Family Medicine 06/12/21 John Chopra MD 55 [facility] [address] [place] [phone] [email or web address] Neurology 06/17/23 Rai Pendleton-Alonzo Zelaya MD 165 [facility] [address] [place] [address] [email or web address] [email or web address] 06/17/23 documented as of this encounter Additional Source Comments The information contained in this document represents components of the legal health record. It is not the complete legal health record.[facility]
--- OUTSIDE RECORDS SUMMARY | 2025-02-02 18:28 | XMS_ITS | Encounter Summary ---
Author Organization [facility] Address [address] [place] [address] Phone Care Team Providers Care Pharmacovigilance Specialist Name Role Phone Khadra Romo MD Primary Care Provider John Chopra MD Unavailable [phone] Lenny Pendleton MD Unavailable Encounter Details Date Type Department Care Team (Late st Contact Info) Description 02/02/2025 Orders Only [facility] Department of Neurology [address] [place] [address], 8th Floor, [address] [place] [address] Debra Stapleton, RN 165 [place] [address] [email or web address] REM sleep behavior disorder (Primary Dx) Social History Tobacco Use Types Packs/Day Years [...] Pass [facility] Endoscopy Admitting Dept Virtual Department [address] [place] [address] 03/01/2025 9:30 AM EDT Hospital Encounter [facility] Endoscopy Admitting Dept Virtual Department [address] [place] [address] Shai Ayon MD [address] [address] 03/01/2025 9:30 AM EDT - 03/01/2025 10:00 AM EDT Surgery [facility] Endoscopy Admitting Dept Virtual Department [address] [place] [address] Shai Ayon MD [address] [place] [address] COLONOSCOPY 04/10/2025 11:00 AM EST Office Visit [facility] Neurology Neuromuscular [address], [address] [place] [address] Lenny Pendleton MD [address] [place] [address] [address] [place] [address] [email or web address] 06/09/2025 1:00 PM EST Office Visit [facility] Department of Neurology 55 [facility], 8th Floor, [address] [place] [address] John Chopra MD 55 [facility] 835 [place] [phone] [email or web address] 07/21/2025 8:40 AM EDT Office Visit [facility] [place] Primary Care 15 [facility] [address] [place] [address] Khadra Romo MD [address] [address] 08/25/2025 11:00 AM EDT Office Visit [facility] Cardiology [facility] 52 [facility], [address] [place] [address] Clementine Brower MD 40 [facility], [address] [place] [phone] [email or web address] Scheduled Procedures Name Priority Associated Diagnoses Date/Ti me COLONOSCOPY Screen for colon cancer 03/01/2025 9:30 AM EDT documented as of this encounter Visit Diagnoses Diagnosis REM sleep behavior disorder- Primary Screen for colon cancer Special screening for malignant neoplasms, colon documented in this encounter Additional Health Concerns Assessment Noted Time PHQ-9 Depression Total Score: 12 024 3:46 PM EST PHQ-2 Depression Total Score: 1 06/28/19 25 2:08 PM EST documented as of this encounter Care Teams Pharmacovigilance Specialist Relationship Specialty Start Date End Date Khadra Romo MD [address] [address] [email or web address] PCP - General Family Medicine 06/12/21 John Chopra MD [address] [place] [address] 835 [place] [address] [email or web address] Neurology 06/17/23 Lenny Pendleton MD [address] [place] [address] 820 [place] [address] [email or web address] Neurology 06/17/23 documented as of this encounter Additional Source Comments The information contained in this document represents components of the legal health record. It is not the complete legal health record.[facility]
--- OUTSIDE RECORDS SUMMARY | 2025-02-02 18:28 | XMS_ITS | Encounter Summary ---
Author Organization [facility] Address [address] [facility] [address] [place] [phone] Phone Care Team Providers Care Clam Digger Name Role Phone Khadra Romo MD Primary Care Provider John Chopra MD Unavailable [phone] Rai Pendleton-Alonzo Zelaya MD Unavailable Encounter Details Date Type Department Care Team (Late st Contact Info) Description 01/16/2025 Orders Only [facility] [place] [address] Unknown, Unknown, Social History Tobacco Use Types [...] Pass [facility] Endoscopy Admitting Dept Virtual Department [address] [place] [address] 03/01/2025 9:30 AM EDT Hospital Encounter [facility] Endoscopy Admitting Dept Virtual Department [address] [place] [address] Shai Ayon MD 10 [facility] 2 [place] [address] 03/01/2025 9:30 AM EDT - 03/01/2025 10:00 AM EDT Surgery [facility] Endoscopy Admitting Dept Virtual Department [address] [place] [address] Shai Ayon MD [address] [address] COLONOSCOPY 04/10/2025 11:00 AM EST Office [facility] Neurology Neuromuscular [address], [address] [place] [address] Rai Pendleton-Alonzo Zelaya MD [address] [place] [address] [address] [place] [address] [email or web address] 06/09/2025 1:00 PM EST Office Visit [facility] Department of Neurology 55 [facility], 8th Floor, [address] [place] [address] John Chopra MD 55 [facility] 835 [place] [phone] [email or web address] 07/21/2025 8:40 AM EDT Office Visit [facility] [place] Primary Care 15 [facility] [address] [place] [address] Khadra Romo MD 15 [facility] 201 [place] [address] [email or web address] 08/25/2025 11:00 AM EDT Office Visit [facility] Cardiology [facility] [address] [facility], [address] [place] [address] Clementine Brower MD [address], [address] [place] [address] [email or web address] Scheduled Procedures Name Priority [...] (01/14/2025 9:50 AM EDT) us Unknown Unknown IMG XR [...] documented as of this encounter Care Teams Clam Digger Relationship Specialty Start Date End Date Khadra Romo MD 15 [facility] 201 [place] [address] [email or web address] PCP - General Family Medicine 06/12/21 John Chopra MD [address] [place] [phone] [email or web address] Neurology 06/17/23 Lenny Pendleton MD [address] [place] [address] 820 [place] [address] [email or web address] Neurology 06/17/23 documented as of this encounter Additional Source Comments The information contained in this document represents components of the legal health record. It is not the complete legal health record.[facility]
--- OUTSIDE RECORDS SUMMARY | 2025-02-02 18:28 | XMS_ITS | Encounter Summary ---
Author Organization [facility] Address [address] [place] [address] Phone Care Team Providers Care Remote Pilot Operator Name Role Phone Khadra Romo MD Primary Care Provider [phone] John Chopra MD Unavailable [phone] Lenny Pendleton MD Unavailable Encounter Details Date Type Department Care Team (Late st Contact Info) Description 05/27/2024 Procedure Pass [facility] PERIOPERATIVE DEPT [address] [place] [phone] Social History Tobacco Use Types Packs/Day Years [...] 1:00 PM EST Vonnie Blackmon RN * [place] Suicide Severity Rating Scale (Screener/Recent Self-Report) Question [...] st Contact Info) Description 03/01/2025 Procedure Pass [facility] Endoscopy Admitting Dept Virtual Department [address] [place] [address] 03/01/2025 9:30 AM EDT Hospital Encounter [facility] Endoscopy Admitting Dept Virtual Department [address] [place] [address] Shai Ayon MD [address] [address] 03/01/2025 9:30 AM EDT - 03/01/2025 10:00 AM EDT Surgery [facility] Endoscopy Admitting Dept Virtual Department [address] [place] [address] Shai Ayon MD [address] [address] COLONOSCOPY 04/10/2025 11:00 AM EST Office Visit [facility] Neurology Neuromuscular [address], [address] [place] [address] Lenny Pendleton MD [address] [place] [address] [address] [place] [address] [email or web address] 06/09/2025 1:00 PM EST Office Visit [facility] Department of Neurology 55 [facility], 8th Floor, [address] [place] [address] John Chopra MD [address] [place] [phone] [email or web address] 07/21/2025 8:40 AM EDT Office Visit [facility] [place] Primary Care 15 [facility] [address] [place] [address] Khadra Romo MD 15 [facility] 201 [place] [address] [email or web address] 08/25/2025 11:00 AM EDT Office Visit [facility] Cardiology [facility] 52 [facility], [address] [place] [address] Clementine Brower MD 40 [facility], [address] [place] [address] [email or web address] Scheduled Procedures Name Priority Associated Diagnoses Date/Ti me COLONOSCOPY Screen for colon cancer 03/01/2025 9:30 AM EDT documented as of this encounter Visit Diagnoses Not on filedocumented in this encounter Additional Health Concerns Assessment Noted Time PHQ-9 Depression Total Score: 12 024 3:46 PM EST PHQ-2 Depression Total Score: 4 06/23/19 24 11:49 PM EST documented as of this encounter Care Teams Remote Pilot Operator Relationship Specialty Start Date End Date Khadra Romo MD 15 [facility] [address] [place] [address] [email or web address] PCP - General Family Medicine 06/12/21 John Chopra MD [address] [place] [address] [place] [phone] [email or web address] Neurology 06/17/23 Lenny Pendleton MD 165 [facility] 820 [place] [address] [email or web address] Neurology 06/17/23 documented as of this encounter Additional Source Comments The information contained in this document represents components of the legal health record. It is not the complete legal health record.[facility]
--- OUTSIDE RECORDS SUMMARY | 2025-02-02 18:28 | XMS_ITS | Encounter Summary ---
Author Organization [facility] Address [address] [facility] [address] [place] [address] Phone Care Team Providers Care Retort Condenser Attendant Name Role Phone Khadra Romo MD Primary Care Provider Pcp, Unknown Unavailable Unavailable John Chopra MD Unavailable [phone] Lenny Pendleton MD Unavailable Encounter Details Date Type Department Care Team (Late st Contact Info) Description 11/22/2022 Procedure Pass [facility], [address] [address] Social History Tobacco Use Types Packs/Day Years [...] high school, GED, job training, learning the [place]ese language, technical skills, or developing parenting skills)? [...] Pass [facility] Endoscopy Admitting Dept Virtual Department [address] [place] [address] 03/01/2025 9:30 AM EDT Hospital Encounter [facility] Endoscopy Admitting Dept Virtual Department [address] [place] [address] Shai Ayon MD [address] [place] [address] 03/01/2025 9:30 AM EDT - 03/01/2025 10:00 AM EDT Surgery [facility] Endoscopy Admitting Dept Virtual Department [address] [place] [address] Shai Ayon MD 10 [facility] 2 [place] [address] [email or web address] COLONOSCOPY 04/10/2025 11:00 AM EST Office Visit [facility] Neurology Neuromuscular [place] [address] [facility], [address] [place] [address] Lenny Pendleton MD 165 [facility] [address] [place] [address] [email or web address] 06/09/2025 1:00 PM EST Office Visit [facility] Department of Neurology 55 [facility], 8th Floor, [address] [place] [address] John Chopra MD 55 [facility] [place] [facility] [address] [place] [phone] [email or web address] 07/21/2025 8:40 AM EDT Office Visit [facility] [place] Primary Care 15 [facility] [address] [place] [address] Khadra Romo MD 15 [facility] [address] [place] [address] [email or web address] 08/25/2025 11:00 AM EDT Office Visit [facility] Cardiology [facility] [address] [facility], [address] [place] [address] Clementine Brower MD [address], [address] [place] [address] [email or web address] Scheduled Procedures Name Priority Associated Diagnoses Date/Ti ky COLONOSCOPY Screen for colon cancer 03/01/2025 9:30 AM EDT documented as of this encounter Visit Diagnoses Not on filedocumented in this encounter Additional Health Concerns Assessment Noted Time PHQ-9 Depression Total Score: 13 023 11:10 PM EST PHQ-2 Depression Total Score: 4 06/15/19 23 11:10 PM EST documented as of this encounter Care Teams Retort Condenser Attendant Relationship Specialty Start Date End Date Khadra Romo MD 15 [facility] [address] [place] [address] [email or web address] PCP - General Family Medicine 06/12/21 Pcp, Unknown 01/28/21 06/16/23 John Chopra MD [address] [place] [phone] [email or web address] Neurology 06/17/23 Lenny Pendleton MD 165 [facility] [address] [place] [address] [email or web address] [email or web address] 06/17/23 documented as of this encounter Additional Source Comments The information contained in this document represents components of the legal health record. It is not the complete legal health record.[facility]
--- OUTSIDE RECORDS SUMMARY | 2025-02-02 18:28 | XMS_ITS | Encounter Summary ---
Author Organization [facility] Address [address] [facility] [address] [place] [address] Phone Care Team Providers Care Systems Manager Name Role Phone Khadra Romo MD Primary Care Provider [phone] John Chopra MD Unavailable Lenny Pendleton MD Unavailable Reason for Visit * Reason Onset Date Comments TCM Visit 01/19/2025 Encounter Details Date Type Department Care Team (Late st Contact Info) Description 01/19/2025 Telephone [facility] [address] [place] [address] [email or web address] TCM Visit Social History Tobacco Use Types Packs/Day Years [...] of this encounter Progress Notes * Bev ParkRUBIA - 01/23/2025 3:26 PM EDT Post Discharge Summary: S/W Chilo, he was discharged from [facility] for CVA on 01/19. He is feeling well with no residual effects. Discharged with no services or devices but is advised to follow up with cardiology for pericarditis and neurology for CVA. He has a cardiology appointment but it isn't scheduled until August 2023, he is waiting to hear back from [facility] neurology re: appointment. He had several med changes including starting ASA and colchicine, changing statin, stopping Adderall and ibuprofen for the time being. He wasable to fruit or nut picker all new medications and has no questions at this time. TCM appointment scheduled for 01/27 with PCP. He will call sooner with any questions or concerns. Post discharge call documentation: Is a post discharge call required?: Yes Please indicate post discharge status: 1st attempt not reached, 2nd attempt not reached, Patient reached - post discharge complete Patient eligible for TCM billing (reached or two unsuccessful attempts within two business days post discharge)?: Yes General: Discharge information: Admit date: 01/18/25 Discharge date: 01/19/25 Discharge from: [facility] Reason for hospitalization: CVA Discharge disposition: Home with outpatient follow up How is the patient feeling since discharge (pain level and other considerations)?: Improving Safety and self care: Does the patient/caregiver have any safety concerns (falls, transfers, stairs, abuse, etc.)?: Yes Is the patient/caregiver able to take care of post discharge needs at home (wound care, medication(s), etc)?: Yes Assistive devices/equipment and home services: Was the patient sent home with any assistive devicesor equipment?: No Was the patient sent home with home services?: No Medication review: Were you able to review the medication list with the patient/caregiver?: Yes Were there any medication changes while the patient was in the hospital (such as anticoagulant dosechanges, insulin, etc)?: Yes What changes?: add ASA, colchicine, change statin to atorvastatin 80mg, stop adderall and ibuprofen Were there any discrepancies during medication review?: No Was the patient/caregiver able to fruit or nut picker all new prescriptions?: Yes Does the patient need any other medications renewed/refilled?: No Does the patient/caregiver have questions regarding their medications or side effects?: No Follow up/conclusion: Was a follow up appointment scheduled with the patient's PCP office?: Yes Date of next appointment with the PCP: 01/27/25 * Jazmin Mark - 01/23/2025 2:42 PM EDT PT lvm on the triage line states that he should be available for the remainder of the day for a call back. CSS Agent (Please do not reply to this user, as this inbox is not monitored. Thank you.) Thank you. * Jazmin Mark - 01/20/2025 4:41 PM EDT PT lvm on the triage line returning phone call to RN. CSS Agent (Please do not reply to this user, as this inbox is not monitored. Thank you.) Thank you. * Bev Park LPN - 01/20/2025 12:59 PM EDT 1ST attempt, patient not reached. Left message requesting call back. Medications in chart reconciled with D/C Summary. TCM put in for 01/27 at 11:20am, will need to confirm with patient. * Kelley Rubio - 01/19/2025 3:46 PM EDT [facility] PEN Top Smart Phrases: Transitional Care Management New Patient: YES/NO: no Hospitalization Name: [facility] Discharge Date: 01/19/25 Reason for Visit+ Diagnosis: Stroke Is the discharge summary in patient chart:YES/NO: no If not did you inform the patient/patient advocate to fax it to the office: YES/NO: yes Please inform the patient/patient advocate to fax and bring a copy to the appt. Appointment Date: N/A Is the appt: N/A Awareness: Appt need to be schedule with in 2 to 14 calendar days from discharge date Additional Note (if applicable): [facility] Call Center CSS Agent (Please do not reply to this user, as this inbox is not monitored. Thank you.) Thank you. documented in this encounter Plan of Treatment Upcoming Encounters Date Type Department Care Team (Late st Contact Info) Description 03/01/2025 Procedure Pass [facility] Endoscopy Admitting Dept Virtual Department [address] [place] [address] 03/01/2025 9:30 AM EDT Hospital Encounter [facility] Endoscopy Admitting Dept Virtual Department [address] [place] [address] Shai Ayon MD [address] [place] [address] [email or web address] 03/01/2025 9:30 AM EDT - 03/01/2025 10:00 AM EDT Surgery [facility] Endoscopy Admitting Dept Virtual Department [address] [place] [address] Shai Ayon MD [address] [place] [address] COLONOSCOPY 04/10/2025 11:00 AM EST Office Visit [facility] Neurology Neuromuscular [address], [address] [place] [address] Lenny Pendleton MD [address] [place] [address] [address] [place] [address] [email or web address] 06/09/2025 1:00 PM EST Office Visit [facility] Department of Neurology [address] [facility], 8th Floor, [address] [place] [address] John Chopra MD [address] [place] [phone] [email or web address] 07/21/2025 8:40 AM EDT Office Visit [facility] [address] [facility] [address] [place] [address] Khadra Romo MD 15 [facility] [address] [place] [address] [email or web address] 08/25/2025 11:00 AM EDT Office Visit [facility] Cardiology [facility] [address] [facility], [address] [place] [address] Clementine Brower MD 40 [facility], [address] [place] [phone] [email or web address] Scheduled Procedures Name Priority [...] documented as of this encounter Care Teams Systems Manager Relationship Specialty Start Date End Date Khadra Romo MD 15 [facility] [address] [place] [address] [email or web address] PCP - General Family Medicine 06/12/21 John Chopra MD [address] [place] [address] [place] [phone] [email or web address] Neurology 06/17/23 Lenny Pendleton MD 165 [facility] [address] [place] [address] [email or web address] Neurology 06/17/23 documented as of this encounter Additional Source Comments The information contained in this document represents components of the legal health record. It is not the complete legal health record.[facility]
--- OUTSIDE RECORDS SUMMARY | 2025-02-02 18:28 | XMS_ITS | Clinical Summary ---
Author Organization [facility] Address [address] [address] Phone Care Team Providers Care Drafting Layout Man Name Role Phone Khadra Romo MD Primary Care Provider John Chopra MD Unavailable Lenny Pendleton MD Unavailable Allergies No known [...] 90 tablet 1 5 03/11/20 25 Active therapeutic multivitamin tablet Take 1 tablet by mouth daily. Active rOPINIRole (REQUIP) 2 MG tablet Take 1 tablet (2 mg total) by mouth nightly at bedtime. 90 tablet 1 5 07/20/19 26 Active colchicine (COLCRYS) 0.6 mg tablet Take 1 tablet by mouth every morning. 5 Active atorvastatin (LIPITOR) 80 MG tablet Take 80 mg by mouth nightly at bedtime. Active aspirin 81 mg chewable tablet Take 81 mg by mouth daily. Active omeprazole (PRILOSEC) 20 MG capsule Take 1 capsule by mouth 2 (two) times a day. 5 Active dextroamphetamin e-amphetamine (ADDERALL) 10 mg Tab tablet 01/13/20 Discontinu ed(No CancelRX) omega-3s/dha/epa /fish oil/D3 (VITAMIN-D + OMEGA-3 ORAL) 01/13/20 Discontinu ed(No CancelRX) ergocalciferol (VITAMIN D2) 50,000 unit capsule Take by mouth. 4 01/13/20 Discontinu ed(No longer taking) lovastatin (MEVACOR) 20 MG tablet Take 1 tablet (20 mg total) by mouth nightly at bedtime. 90 tablet 3 5 01/28/20 Discontinu ed(No longer taking) gabapentin (NEURONTIN) 300 MG capsule Take 3 capsules (900 mg total) by mouth nightly at bedtime. 180 capsule 1 5 01/13/20 Discontinu ed(No longer taking) rOPINIRole (REQUIP) 2 MG tablet Take 2 mg by mouth nightly at bedtime. 01/14/20 Discontinu ed(Reorder ) Active Problems Problem Noted Date Diagnosed Date Ischemic stroke of frontal lobe 01/27/2025 Overview (01/27/2025): L frontal lobe, presented with R arm weakness, cognitive impairment. Sx resolved w/in few hours Assessment & Plan (01/27/2025 2:48 PM EDT): Reports no residual deficits now and had none at time of hospital discharge. Continue baby aspirin, aggressive statin therapy. Referred to neurologist Dr. Jimenes at [facility], whom patient has seen before. Recommend discussing an alert button with his local other services organization Orders: External Referral to Neurology ([facility]) Acute idiopathic pericarditis 01/27/2025 Assessment & Plan (01/27/2025 2:48 PM EDT): - Currently on colchicine for treatment, no issues reported. Okay to engage in physical activity that causes mild discomfort Follow-up with cardiology as planned Lightheadedness 12/20/2024 Assessment & Plan (12/20/2024 1:53 [...] time. Orthostatic hypotension 09/23/2024 Assessment & Plan (01/27/2025 2:48 PM EDT): Rx compression stockings. Explained mechanics of blood pressure and why these are useful. Continue careful attention to hydration and electrolytes. Be sure to have something available to hold onto when rising from a seated position. Follow-up with neurologist who specializes in dysautonomia Orders: Compression stockings Assessment & Plan (12/20/2024 2:06 PM EDT): [...] for him to see Dr. Brower in [place] Cervical myelopathy 05/27/2024 Assessment & Plan (01/12/2025 [...] & GERMAN scan, EMG pending. Neuro Dr Athreya Assessment & Plan (01/12/2025 1:21 PM EDT): [...] future, such as a planned trip to [place] that he mentioned, he should make his [...] Encounters Date Type Department Care Team Description 02/02/2025 Orders Only [facility] Department of Neurology [address] [place] [address], 8th Floor, [address] [place] [phone] Debra Stapleton RN REM sleep behavior disorder (Primary Dx) 01/27/2025 11:20 AM EDT Office Visit [facility] [address] [place] [address] Khadra Romo MD Ischemic stroke of frontal lobe (Primary Dx); Orthostatic hypotension; Acute idiopathic pericarditis 01/19/2025 Telephone [facility] [address] [place] [address] Kelley Rubio TCM Visit 01/18/2025 Orders Only [facility] [address] [place] [address] Unknown, Beatriz, 01/17/2025 Telephone [facility] [address] [place] [address] Khadra Romo MD [place] Sudden Altered mental status 01/16/2025 Telephone [facility] SUPPORT [address] [place] [address] Maddison Irizarry CNP Patient Returned Call 01/16/2025 Orders Only [facility] [address] [place] [address] Unknown, MD Beatriz 01/12/2025 10:40 AM EDT Telemedicine [facility] [address] [place] [address] Khadra Romo MD Hypermagnesemia (Primary Dx); Parkinsonism, unspecified Parkinsonism type; Cervical myelopathy 12/23/2024 Telephone [facility] Primary [address] [place] [address] Khadra Romo MD Labs Only 12/20/2024 1:30 PM EDT Office Visit [facility] [address] [place] [address] 3rd Floor, [address] [place] [address] Laura Ayala CNP Orthostatic hypotension (Primary Dx); Lightheadedness; Cold feet 12/08/2024 3:30 PM EDT Telemedicine [facility] Department of Neurology [address] [facility], 8th Floor, [address] [place] [address] John Chopra MD Dysautonomia (Primary Dx); Cognitive decline; Restless leg syndrome; REM sleep behavior disorder; Orthostatic hypotension 11/24/2024 Orders Only [address] [place] [address] Unknown, MD Beatriz 11/22/2024 7:40 AM EDT - 11/22/2024 11:59 PM EDT Hospital Encounter [facility] [address] 3rd [place] [address] Aryan Perry MD Discharge Disposition: Home or Self Care 11/18/2024 Orders Only [address] [place] [address] Unknown, MD Beatriz 11/08/2024 8:30 AM EDT Office Visit [facility] [address] [place] [address] Analia Acuña, Ariadne Franks, SIENA Neck pain (Primary Dx) 11/02/2024 1:20 PM EDT - 11/02/2024 11:59 PM EDT Hospital Encounter Non-Invasive Cardiology [address] [place] [address] Aryan Peryr MD Discharge Disposition: Home or Self Care from Last 3 Months Immunizations Immunization Administration Dates Next Due [id number] FORMULATION 05/28/2009 Hepatitis A, Adult 08/19/2023 Hepatitis B Adult 05/24/2008,11/22/2007,10/22/19 08 Hepatitis B CpG 09/23/2024 INFLUENZA, SPLIT VIRUS, TRIVALENT PF 12/22/2014 INFLUENZA, SPLIT VIRUS, TRIV ALENT W/ PRESERVATIVE IM 02/16/2014,05/17/2012,03/18/2007 Influenza High-Dose Quadriva lent Preservative Free IM 03/05/2022 Influenza High-Dose Trivalen t Preservative Free IM 01/27/2025 Influenza Quadrivalent Adjuv anted Preservative Free IM [...] Sign Reading Time Taken Comments Blood Pressure 106/64 01/27/2025 11:26 AM EDT Pulse 61 01/27/2025 11:26 AM EDT Temperature 36.3 C (97.3 F) 01/27/2025 11:26 AM EDT Respiratory Rate 14 06/10/2024 3:15 AM EST Oxygen Saturation 97% 01/27/2025 11:26 AM EDT Inhaled Oxygen Concentration - - Weight 80.4 kg (177 lb 3.2 oz) 01/27/2025 11:26 AM EDT Height 182.9 cm (6' 0.01 ) 12/20/2024 1:25 PM ED T Body Mass Index 24.03 12/20/2024 1:25 PM EDT Plan of Treatment Upcoming Encounters Date Type Department Care Team (Late st Contact Info) Description 03/01/2025 Procedure Pass [facility] Endoscopy Admitting Dept Virtual Department [address] [place] [address] 03/01/2025 9:30 AM EDT Hospital Encounter [facility] Endoscopy Admitting Dept Virtual Department [address] [place] [address] Shai Ayon MD [address] [place] [address] 03/01/2025 9:30 AM EDT - 03/01/2025 10:00 AM EDT Surgery [facility] Endoscopy Admitting Dept Virtual Department [address] [place] [address] Shai Ayon MD [address] [address] COLONOSCOPY 04/10/2025 11:00 AM EST Office Visit [facility] Neurology Neuromuscular [place] [address] [facility], [address] [place] [address] Lenny Pendleton MD [address] [facility] [address] [place] [address] [email or web address] 06/09/2025 1:00 PM EST Office Visit [facility] Department of Neurology [address] [facility], 8th Floor, [address] [place] [address] John Chopra MD 55 [facility] [address] [place] [phone] [email or web address] 07/21/2025 8:40 AM EDT Office Visit [facility] [address] [facility] [address] [place] [address] Khadra Romo MD 15 [facility] [address] [place] [address] [email or web address] 08/25/2025 11:00 AM EDT Office Visit [facility] Cardiology [facility] [address] [facility], [address] [place] [address] Clementine Brower MD [address] [place] [phone] [email or web address] Scheduled Procedures Name Priority Associated Diagnoses Date/Ti me COLONOSCOPY Screen for colon cancer 03/01/2025 9:30 AM EDT Health Maintenance Due Date Last Done Comments COLOGUARD 09/14/1999 COLONOSCOPY 09/14/1999 COLORECTAL CANCER SCREENING 09/14/1999 FIT TEST 09/14/1999 FOBT 09/14/1999 SIGMOIDOSCOPY 09/14/1999 VIRTUAL COLONOSCOPY 09/14/1999 COVID-19 VACCINE ( season) 2025 01/27/2024, 02/18/2023, 03/05/2022, Additional history exists DEPRESSION SCREENING 06/28/2025 06/28/2024, 06/17/19 24 Adult Td,Tdap Booster 06/24/2033 06/24/2023 , 11/14/2013, 05/04/2005 ZOSTER VACCINES Completed 09/29/2020, 04/03, 10/19/2015 HEPATITIS C SCREENING Completed 06/12/2021 PNEUMOCOCCAL VACCINES (50+ years) Completed 06/16/2022 RSV VACCINE Completed 02/18/2023 HEPATITIS A VACCINES Aged Out 08/19/2023 No long er eligible based on patient's age to complete this topic INFLUENZA VACCINE Completed 01/27/2025, , 02/18/2023, Additional history exists SMOKING STATUS SCREENING (Once After 26 Yrs) Completed 01/27/2025 HIB VACCINES Aged Out No longer eligi ble based on patient's age to complete this topic MENINGOCOCCAL VACCINES (ACWY) Aged Out No longer eligible based on patient's age to complete this topic MENINGOCOCCAL VACCINES (B) Aged Out N o longer eligible based on patient's age to complete this topic Medical Devices Implanted Type Area Loan Representative Device Identifier Shelf Expiration Date Model / Serial / Lot Cranial Plate [id number] 20 Hole Bone Mandibular Trauma Adaption Straight Titanium - [id number] Implanted:Qty: 1 on 05/27/2024 by Margoth Velásquez MD at [facility] N/A: Posterior Cervical Fwd: [employer] [id number] / / Screw Bone 2x5mm Cortex Titanium Self Drilling Plusdrive Recess Single - [id number] Implanted:Qty: 3 on 05/27/2024 by Margoth Velásquez MD at [facility] N/A: Posterior Cervical DEPUY SY[employer]ES [employer] [id number] / / Screw Bone 2x6mm Cranial Cortex Titanium Self Tapping Cruciform Recess Gold - [id number] Implanted:Qty: 8 on 05/27/2024 by Margoth Velásquez MD at [facility] N/A: Posterior Cervical DEPUY SYNTHES SALES [...] 2:21 PM EDT Pure hypercholesterolemia Orthostatic hypotension HEPATITIS C ANTIBODY, QUALITATIVE Routine 06/12/2021 8:53 [...] MD CV STRESS ORDERABLES Final Result * Hepatitis C antibody, qualitative (06/12/2021 8:53 AM EST) HCV NON-REACTIV E NON-REACTI VE [facility] Blood 06/12/2021 8:53 AM EST 06/12/2021 8:54 AM EST Khadra Romo MD LAB BLOOD ORDERABLES Final R esult [facility] [address] [place], [place] [id number] from Last 3 Months or Most Recently Relevant to Health Maintenance Insurance [employer] REPLACEMENT [employer] [employer] PREFERRED HMO REPLACEMENT [employer] RE[employer] REPLAC[employer] REPLACEMENT [employer] P[employer] REPLACEMENT [employer] REPLAC[employer] REPLAC[employer]ACEMENT Advance Directives For more information, please contact: [phone] (9AM - 5PM [facility], Thursday-Thursday) Documents on File Type Date Recorded Patient Call Center Manager Expl anation Healthcare Proxy 07/22/2024 MOLST 06/29/2024 * Full Code (Latest Code Status on File) Date Activated Date Inactivated Comments 05/27/2024 11:53 AM Question Answer Comments Code Status Confirmed With: Other (specify below ) Code Discussion Comments: periop Care Teams Drafting Layout Man Relationship Specialty Start Date End Date Khadra Romo MD [address] [place] [phone] PCP - General Family Medicine 06/12/21 John Chopra MD [address] [place] [phone] [email or web address] Neurology 06/17/23 Lenny Pendletonwu, MD 165 [facility] [address] [place] [address] [email or web address] [email or web address] 06/17/23 Additional Source Comments The information contained in this document represents components of the legal health record. It is not the complete legal health record.[facility]
--- OUTSIDE RECORDS SUMMARY | 2025-02-02 18:28 | XMS_ITS | Encounter Summary ---
Author Organization [facility] Address [address] [place] [address] Phone Care Team Providers Care Wire Rope Fabrication Supervisor Name Role Phone Khadra Romo MD Primary Care Provider [phone] John Chopra MD Unavailable [phone] Rai Pendleton-Alonzo Zelaya MD Unavailable Encounter Details Date Type Department Care Team (Late st Contact Info) Description 01/06/2024 Procedure Pass [facility], Ct Scan - [address] [address] Social History Tobacco Use Types Packs/Day Years [...] [facility] End[facility] Admitting Dept Virtual Department [address] [place] [address] 03/01/2025 9:30 AM EDT Hospital Encounter [facility] Admitting Dept Virtual Department [address] [place] [address] Shai Ayon MD 10 [facility] 2 [place] [address] [email or web address] 03/01/2025 9:30 AM EDT - 03/01/2025 10:00 AM EDT Surgery [facility] Endoscopy Admitting Dept Virtual Department 30 [place] [address] Shai Ayon MD [address] [address] [email or web address] COLONOSCOPY 04/10/2025 11:00 AM EST Office Visit [facility] Neurology Neuromuscular [address], [address] [place] [address] Lenny Pendleton MD [address] [place] [address] [address] [place] [address] [email or web address] 06/09/2025 1:00 PM EST Office Visit [facility] Department of Neurology [address] [place] [address], 8th Floor, [address] [place] [address] John Chopra MD 55 [facility] 835 [place] [phone] [email or web address] 07/21/2025 8:40 AM EDT Office Visit [facility] [address] [facility] [address] [place] [address] Khadra Romo MD 15 [facility] [address]. [address] [place] [address] 08/25/2025 11:00 AM EDT Office Visit [facility] Cardiology [facility] [address] [facility], [address] [place] [address] Clementine Brower MD [address] [place] [address] [email or web address] Scheduled Procedures Name Priority Associated Diagnoses Date/Ti ar COLONOSCOPY Screen for colon cancer 03/01/2025 9:30 AM EDT documented as of this encounter Visit Diagnoses Not on filedocumented in this encounter Additional Health Concerns Assessment Noted Time PHQ-9 Depression Total Score: 12 024 3:46 PM EST PHQ-2 Depression Total Score: 4 06/23/19 24 11:49 PM EST documented as of this encounter Care Teams Wire Rope Fabrication Supervisor Relationship Specialty Start Date End Date Khadra Romo MD [address] [address] [email or web address] PCP - General Family Medicine 06/12/21 John Chopra MD [address] [phone] [email or web address] 06/17/23 Lenny Pendleton MD [address] [place] [address] 820 [place] [address] [email or web address] 06/17/23 documented as of this encounter Additional Source Comments The information contained in this document represents components of the legal health record. It is not the complete legal health record.[facility]
--- OUTSIDE RECORDS SUMMARY | 2025-02-02 18:29 | XMS_ITS | Encounter Summary ---
Author Organization [facility] Address [address] [facility] [address] [place] [address] Phone Care Team Providers Care Base Filler Name Role Phone Khadra Romo MD Primary Care Provider John Chopra MD Unavailable [phone] Rai Pendleton-Alonzo Zelaya MD Unavailable Encounter Details Date Type Department Care Team (Late st Contact Info) Description 01/18/2025 Orders Only [facility] [place] [address] Unknown, Unknown, Social History Tobacco Use Types [...] Pass [facility] Endoscopy Admitting Dept Virtual Department [address] [place] [address] 03/01/2025 9:30 AM EDT Hospital Encounter [facility] Endoscopy Admitting Dept Virtual Department [address] [place] [address] Shai Ayon MD 10 [facility] 2 [place] [address] 03/01/2025 9:30 AM EDT - 03/01/2025 10:00 AM EDT Surgery [facility] Endoscopy Admitting Dept Virtual Department [address] [place] [address] Shai Ayon MD [address] [address] COLONOSCOPY 04/10/2025 11:00 AM EST Office Visit [facility] [place] Neuromuscular [address], [address] [place] [address] Rai Pendleton-Alonzo Zelaya MD [address] [place] [address] [address] [place] [address] [email or web address] 06/09/2025 1:00 PM EST Office Visit [facility] Department of Neurology [address] [facility], 8th Floor, [address] [place] [address] John Chopra MD 55 [facility] 835 [place] [phone] [email or web address] 07/21/2025 8:40 AM EDT Office Visit [facility] [address] [facility] [address] [place] [address] Khadra Romo MD [address] [address] [email or web address] 08/25/2025 11:00 AM EDT Office Visit [facility] Card[facility] [address] [facility], [address] [place] [address] Clementine Brower MD [address], [address] [place] [address] [email or web address] Scheduled Procedures Name Priority Associated Diagnoses Date/Ti [...] documented as of this encounter Care Teams Base Filler Relationship Specialty Start Date End Date Khadra Romo MD 15 [facility] 201 [place] [address] [email or web address] PCP - General Family Medicine 06/12/21 John Chopra MD [address] [place] [phone] [email or web address] Neurology 06/17/23 Lenny Pendleton MD 165 [facility] 820 [place] [address] [email or web address] Neurology 06/17/23 documented as of this encounter Additional Source Comments The information contained in this document represents components of the legal health record. It is not the complete legal health record.[facility]
--- OUTSIDE RECORDS SUMMARY | 2025-02-02 18:29 | XMS_ITS | Data Portability ---
Author Organization [facility], Main Office Address [address] [facility] [address] [place] [address] Care Team Providers Care Housecleaner Name Role Phone THANIA RODRIGUEZ Pharmacist In Charge Owner JUANCARLOS MILLARD Primary Care Provider KAREEM HERNANDEZ General Surgeon [phone] Assessment No assessment recorded. Plan of Treatment Reminders Order Date Submit Date Provider Last Modified By Organization Details Last Modified Time Details Appointments None recorded. Lab lipid panel, serum 2017 018 [id number], [address] [place], [address], 8 22:33:50 ALT (alanine aminotrans ferase), serum or plasma 2017 018 [id number], [address] [place], [address], 8 22:33:47 AST/SGOT (aspartate aminotrans ferase), serum or plasma 2017 018 [id number], [address] [place], [address], 8 22:33:48 BMP, serum or plasma 2017 018 [id number], [address] [place], [address], 8 22:33:49 Referral general surgeon referral 2018 019 [facility], [address], [address], [place], [address], 9 16:06:43 general surgeon referral - pt wants lipoma removed from upper back 2017 018 rosanne Cronin MD, [address], [address], [place], [address], 8 15:30:07 general surgeon referral - pt has lipoma on left interspina l area and wants it removed 2016 017 rosanne Cronin MD, [address], [address], [place], [address], 7 10:01:34 neurologis t referral - pt notes worsening sx in terms of plantar feet sensitivit y/ and he has noted balance problems/ pt wants to know if he has any other options like Phys tx 2016 017 martina Stephens MD, [address] [place] [address] Dr, [facility] [address], [place], [address], 7 19:42:45 Procedures None recorded. Surgeries None recorded. Imaging None recorded. Medication Orders tadalafil 20 mg tablet 2018 019 [id number], [address], [place], [id number], 9 09:37:27 lovastatin 20 mg tablet 2018 019 [id number], [address], [place], [id number], 9 09:37:27 Bactrim DS 800 mg-160 mg tablet 2017 018 [facility], [address], [place], [id number], 9 08:43:15 Bactrim DS 800 mg-160 mg tablet 2016 017 [facility] 3, [address] [place] [address], [address], 9 08:43:15 Patient TargetsNo targets recorded. Patient Instructions Encounter Date Encounter Id Patient Instructions Last Modified By Organization Details Last Modified Time 08/22/2016 [id number] Medications (OTC, herbal therapies, supplements) reviewed and reconciled with patient and or caregiver, including potential side effects, drug interactions, instructions, and the consequences of not taking medication. Reviewed potential barriers to medication adherence, such as side effects from medication or cost of medication. claritza Not available 08/22/2016 15:01:07 01/28/2017 [id number] rec. take probiotic supplement or ivorian yogurt while on abx pmadden Not available 01/28/2017 10:16:38 Follow up if no improvement or if symptoms worsen. I have reviewed the note and agree with the assessment and plan of care. arslan Not available 01/28/2017 10:39:29 04/09/2018 [id number] sitz bath info awychowski Not available 04/09/2018 09:50:36 skin abscess: care instructions awychowski Not available 04/09/2018 09:50:36 cellulitis: care instructions awychowski Not available 04/09/2018 09:50:36 Please apply a warm compress for 20min 4 times daily. awychowski Not available 04/09/2018 09:53:48 05/31/2018 [id number] Medications (OTC, herbal therapies, supplements) reviewed and [...] Referral for Lipoma of back Referring Physician: Juancarlos Millard, Internal Medicine, Encounter Date: 05/31/2018 Results [...] CIENT IN VITAM IN D. Refer ence: [facility] Data Brief : No.59 July: Vitam in [...] Go To The Location Of Their Choice, [id number] 05/25/2018 17:13:35 05/25/1905/25/2018 lipid panel , serum [...] cient in vitam in D. Refer ence: [facility] Data Brief : No.59 July: Vitam in D Statu s: Unite d [place] s: [id number] As of , Vitam in D, 25-Hy droxy assay has been [facility]. In some [email or web address]a nces, the new assay may yield a highe r value (up to 15% incre ase) in dinorah rison to the old assay . These incre ases would mainl y be notic eable at value s of great er than 50 ng/ml . Not Available [facility] (Centralized Electronic Ordering - All Locations) Patient Can Go To The Location Of Their Choice, [id number] 05/25/2018 17:17:43 05/25/1905/25/2018 HbA1c (hemo globi n [...] Go To The Location Of Their Choice, [id number] 05/25/2018 20:55:44 05/25/1905/26/2018 hepat itis C virus Ab, serum anti-hepatit is C NEGAT ANAM Refer ence range : Negat anam This test was perfo rmed on the Abbot t Archi tect immun oassa y syste m. Not Available [facility] (Centralized Electronic Ordering - All Locations) Patient Can Go To The Location Of Their Choice, [id number] 05/26/2018 08:07:52 08/26/19 17 08/16/2016 XR, cervi kerry spine No observ ation record ed. [facility]dal[facility] [address] , [place], [address], 08/25/2016 12:27:16 Result Notes None recorded. Problems Name Problem SNOMED Code Status Onset Date Resolution Date Notes Provider Name and Address Organization Details Recorded Time Vitamin B12 deficien cy (non anemic) 22073896 Active Liseth regalado [facility] 6 09:16:08 Impacted cerumen 66751569 Completed 05/16/[address] [facility] 7 10:10:34 Otitis externa 7795617 Completed 05/16/[address] 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 6 09:16:08 Infectiv e hepatiti s immuniza tion Completed 200811/15/2013 RECORDED 05/24/19 09 9:24AM BY DAYNA RIOS, NURSE VISIT Liseth regalado [facility] 6 09:16:09 Infectiv e hepatiti s immuniza tion Completed 200812/08/2013 RECORDED 05/24/19 09 9:24AM BY DAYNA RIOS, NURSE VISIT Liseth regalado [facility] 6 09:16:09 Infectiv e hepatiti s immuniza tion Completed 200812/09/2013 RECORDED 05/24/19 09 9:24AM BY DAYNA RIOS, NURSE VISIT Liseth regalado [facility] 6 09:16:09 Influenz a vaccine needed 23538947079 06 Completed 200811/15/2013 RECORDED 10/19/19 09 10:09AM BY RICKI GORDILLO MD, ANNOTATI ON/ADDEN DUM Liseth regalado [facility] 6 09:16:08 General examinat ion of patient Completed 200811/15/2013 RECORDED 10/19/19 09 10:09AM BY RICKI GORDILLO MD, ANNOTATI ON/ADDEN DUM Liseth Hooks null, [facility] 6 09:16:09 Influenz a vaccine needed 29689556174 06 Completed 200812/08/2013 RECORDED 10/19/19 09 10:09AM BY RICKI GORDILLO MD, ANNOTATI ON/ADDEN DUM Liseth Hooks null, [facility] 6 09:16:08 General examinat ion of patient Completed 200812/08/2013 RECORDED 10/19/19 09 10:09AM BY RICKI GORDILLO MD, ANNOTATI ON/ADDEN DUM Liseth Hooks null, [facility] 6 09:16:09 Screenin g for malignan t neoplasm of colon Completed 200812/08/2013 RECORDED 10/19/19 09 10:09AM BY RICKI GORDILLO MD, ANNOTATI ON/ADDEN DUM Leslie Ervin [facility] 7 10:10:53 Influenz a vaccine needed 68395341074 06 Completed 200812/09/2013 RECORDED 10/19/19 09 10:09AM BY RICKI GORDILLO MD, ANNOTATI ON/ADDEN DUM Liseth Hooks null, [facility] 6 09:16:09 General examinat ion of patient Completed 200812/09/2013 RECORDED 10/19/19 09 10:09AM BY RICKI GORDILLO MD, ANNOTATI ON/ADDEN DUM Liseth Hooks null, [facility] 6 09:16:09 Screenin g for malignan t neoplasm of colon Completed 200812/09/2013 RECORDED 10/19/19 09 10:09AM BY RICKI GORDILLO MD, ANNOTATI ON/ADDEN DUM Leslie Ervin MA null, [facility] 7 10:10:53 Hyperlip idemia 33182507 Completed 200911/15/2013 RECORDED 09/07/19 10 1:34PM BY ELIANE RIOS MA, ANNOTATI ON/ADDEN DUM Liseth Hooks null, [facility] 6 09:16:08 Acute upper respirat ory infectio n 30967025 Completed 201211/15/2013 RECORDED 07/31/19 13 9:55AM BY KENDRICK HIGHTOWER MA, ANNOTATI ON/ADDEN DUM Leslie Ervin MA null, [facility] 7 10:11:22 Chest pain 62918476 Completed 201211/15/2013 RECORDED 07/31/19 13 9:54AM BY KENDRICK HIGHTOWER MA, ANNOTATI ON/ADDEN DUM Liseth Hooks null, [facility] 6 09:16:08 Screenin g for malignan t neoplasm of colon Completed 201211/15/2013 RECORDED 07/31/19 13 9:55AM BY KENDRICK HIGHTOWER MA, ANNOTATI ON/ADDEN DUM Leslie Ervin MA null, [facility] 7 10:10:53 Risk of exposure to communic able disease 335991604 Completed 201211/15/2013 RECORDED 07/31/19 13 9:55AM BY KENDRICK HIGHTOWER MA, ANNOTLISA ON/ADDEN DUM Liseth Hooks null, [facility] 6 09:16:08 Dysuria 27967510 Completed 201211/15/2013 RECORDED 07/31/19 13 9:55AM BY KENDRICK HIGHTOWER MA, ANNOTATI ON/ADDEN DUM Liseth Hooks null, [facility] 6 09:16:08 Enthesop athy of knee 87615199 Completed 201211/15/2013 RECORDED 07/31/19 13 9:55AM BY KENDRICK HIGHTOWER MA, ANNOTATI ON/ADDEN DUM Liseth Hooks null, [facility] 6 09:16:08 Blood in urine 83727413 Completed 201211/15/2013 RECORDED 07/31/19 13 9:54AM BY KENDRICK HIGHTOWER MA, ANNOTATI ON/ADDEN DUM Liseth Hooks null, [facility] 6 09:16:08 Malaise and fatigue 906847431 Completed 201211/15/2013 RECORDED 07/31/19 13 9:55AM BY KENDRICK HIGHTOWER MA, ANNOTATI ON/ADDEN DUM Liseth Hooks null, [facility] 6 09:16:08 Administ ration of diphther ia and tetanus vaccine Completed 201211/15/2013 RECORDED 07/31/19 13 9:55AM BY KENDRICK HIGHTOWER MA, ANNOTATI ON/ADDEN DUM Liseth Hooks null, [facility] 6 09:16:09 Disorder of skin 66149350 Completed 201211/15/2013 RECORDED 07/31/19 13 9:55AM BY KENDRICK HIGHTOWER MA, ANNOTATI ON/ADDEN DUM Liseth Hooks null, [facility] 6 09:16:08 Sprain of spinal ligament 527567155 Completed 201211/15/2013 RECORDED 07/31/19 13 9:55AM BY KENDRICK HIGHTOWER MA, ANNOTATI ON/ADDEN DUM Liseth Hooks null, [facility] 6 09:16:08 Acute upper respirat ory infectio n 89640407 Completed 201212/08/2013 RECORDED 07/31/19 13 9:55AM BY KENDRICK HIGHTOWER MA, ANNOTATI ON/ADDEN DUM Leslie Bigby WILLY null, [facility] 7 10:11:22 Chest pain 17841689 Completed 201212/08/2013 RECORDED 07/31/19 13 9:54AM BY KENDRICK HIGHTOWER MA, ANNOTATI ON/ADDEN DUM Liseth Hooks null, [facility] 6 09:16:08 Risk of exposure to communic able disease 869292929 Completed 201212/08/2013 RECORDED 07/31/19 13 9:55AM BY KENDRICK HIGHTOWER MA, JEREMIAHATI ON/ADDEN DUM Liseth Hooks null, [facility] 6 09:16:08 Dysuria 54446204 Completed 201212/08/2013 RECORDED 07/31/19 13 9:55AM BY KENDRICK HIGHTOWER MA, ANNOTATI ON/ADDEN DUM Liseth Hooks null, [facility] 6 09:16:08 Enthesop athy of knee 34044050 Completed 201212/08/2013 RECORDED 07/31/19 13 9:55AM BY KENDRICK HIGHTOWER MA, ERMA ON/ADDEN DUM Liseth Hooks null, [facility] 6 09:16:08 Blood in urine 73261425 Completed 201212/08/2013 RECORDED 07/31/19 13 9:54AM BY KENDRICK HIGHTOWER MA, ERMA ON/ADDEN DUM Liseth Hooks null, [facility] 6 09:16:08 Malaise and fatigue 299268713 Completed 201212/08/2013 RECORDED 07/31/19 13 9:55AM BY KENDRICK HIGHTOWER MA, ERMA ON/ADDEN DUM Liseth Hooks null, [facility] 6 09:16:08 Administ ration of diphther ia and tetanus vaccine Completed 201212/08/2013 RECORDED 07/31/19 13 9:55AM BY KENDRICK HIGHTOWER MA, ERMA ON/ADDEN DUM Liseth Hooks null, [facility] 6 09:16:09 Disorder of skin 17475884 Completed 201212/08/2013 RECORDED 07/31/19 13 9:55AM BY KENDRICK HIGHTOWER MA, ANNOTATI ON/ADDEN DUM Liseth Hooks null, [facility] 6 09:16:08 Adult health examinat ion Completed 201212/08/2013 RECORDED 07/31/19 13 9:54AM BY KENDRICK HIGHTOWER MA, ANNOTATI ON/ADDEN DUM Leslie Ervin MA null, [facility] 7 10:10:49 Sprain of spinal ligament 610626476 Completed 201212/08/2013 RECORDED 07/31/19 13 9:55AM BY KENDRICK HIGHTOWER MA, ANNOTATI ON/ADDEN DUM Liseth Hooks null, [facility] 6 09:16:08 Acute upper respirat ory infectio n 23599149 Completed 201212/09/2013 RECORDED 07/31/19 13 9:55AM BY KENDRICK HIGHTOWER MA, ANNOTATI ON/ADDEN DUM Leslie Ervin MA null, [facility] 7 10:11:22 Chest pain 15841926 Completed 201212/09/2013 RECORDED 07/31/19 13 9:54AM BY KENDRICK HIGHTOWER MA, ERMA ON/ADDEN DUM Liseth Jessee null, [facility] 6 09:16:08 Risk of exposure to communic able disease 853699182 Completed 201212/09/2013 RECORDED 07/31/19 13 9:55AM BY KENDRICK HIGHTOWER MA, ANNOTATI ON/ADDEN DUM Liseth Hooks null, [facility] 6 09:16:08 Dysuria 81148034 Completed 201212/09/2013 RECORDED 07/31/19 13 9:55AM BY KENDRICK HIGHTOWER MA, ANNOTATI ON/ADDEN DUM Liseth Hooks null, [facility] 6 09:16:08 Enthesop athy of knee 27819598 Completed 201212/09/2013 RECORDED 07/31/19 13 9:55AM BY KENDRICK HIGHTOWER MA, ANNOTATI ON/ADDEN DUM Liseth Hooks null, [facility] 6 09:16:08 Blood in urine 37155617 Completed 201212/09/2013 RECORDED 07/31/19 13 9:54AM BY KENDRICK HIGHTOWER MA, ANNOTATI ON/ADDEN DUM Liseth Hooks null, [facility] 6 09:16:08 Malaise and fatigue 158779439 Completed 201212/09/2013 RECORDED 07/31/19 13 9:55AM BY KENDRICK HIGHTOWER MA, JEREMIAHATI ON/ADDEN DUM Lisethakshat Hooks null, [facility] 6 09:16:08 Administ ration of diphther ia and tetanus vaccine Completed 201212/09/2013 RECORDED 07/31/19 13 9:55AM BY KENDRICK HIGHTOWER MA, ERMA ON/ADDEN DUM Liseth Hooks null, [facility] 6 09:16:09 Disorder of skin 63236789 Completed 201212/09/2013 RECORDED 07/31/19 13 9:55AM BY KENDRICK HIGHTOWER MA, JEREMIAHATI ON/ADDEN DUM Liseth Hooks null, [facility] 6 09:16:08 Adult health examinat ion Completed 201212/09/2013 RECORDED 07/31/19 13 9:54AM BY KENDRICK HIGHTOWER MA, JEREMIAHATI ON/ADDEN DUM Leslie Ervin MA null, [facility] 7 10:10:49 Sprain of spinal ligament 604658988 Completed 201212/09/2013 RECORDED 07/31/19 13 9:55AM BY KENDRICK HIGHTOWER MA, ANNOTATI ON/ADDEN DUM Liseth Hooks null, [facility] 6 09:16:08 Cellulit is of digit 55624088 Completed 201211/15/2013 IMPRESSI ON: [place] NEW RX SENT; RECORDED 01/12/20 13 3:25PM BY KENDRICK HIGHTOWER MA, ANNOTATI ON/ADDEN DUM Liseth Hooksakshat regalado, [facility] 6 09:16:08 Cellulit is of digit 67561444 Completed 201212/08/2013 IMPRESSI ON: [place] NEW RX SENT; RECORDED 01/12/20 13 3:25PM BY KENDRICK HIGHTOWER MA, ANNOTLISA ON/ADDEN DUM Liseth Hooks null, [facility] 6 09:16:08 Cellulit is of digit 71207691 Completed 201212/09/2013 IMPRESSI ON: [place] NEW RX SENT; RECORDED 01/12/20 13 3:25PM BY KENDRICK HIGHTOWER MA, ANNOTATI ON/ADDEN DUM Liseth Hooksakshat regalado, [facility] 6 09:16:08 Conjunct ivitis 5970168 Completed 201211/15/2013 RECORDED 02/02/20 13 11:08AM BY INNA BURCH MA, ANNOTATI ON/ADDEN DUM Lisethakshat regalado [facility] 6 09:16:08 Benign prostati c hyperpla kaela 817318175 Active [address] [facility] 6 09:16:09 Lower urinary tract symptoms 495912932 Completed 201205/16/[address] [facility] 7 10:10:45 Adult health examinat ion Completed 201211/15/2013 RECORDED 02/02/20 13 11:07AM BY INNA BURCH MA, ANNOTATI ON/ADDEN DUM Leslie regalado [facility] 7 10:10:49 Hearing loss 00752198 Completed 201211/15/2013 RECORDED 02/02/20 13 11:08AM BY INNA BURCH MA, ANNOTATI ON/ADDEN DUM Leslie regalado, [facility] 7 10:10:31 Patient status finding 100108568 Completed 201211/15/2013 RECORDED 02/02/20 13 11:07AM BY INNA BURCH MA, ANNOTATI ON/ADDEN DUM Leslie regalado, [facility] 7 10:10:25 Acute upper respirat ory infectio n 33000264 Completed 201205/16/2016 IMPRESSI ON: NORMAL EXAM, REC. SYMPTOMA TIC TX, IBUPROFE N PRN PAIN. RTC IF PERSISTE NT OR WORSENIN G SYMPTOMS .; RECORDED 02/02/20 13 3:56PM BY BK PABLO PA-C, OFFICE VISIT Leslie regalado [facility] 7 10:11:22 Conjunct ivitis 1554422 Completed 201212/08/2013 RECORDED 02/02/20 13 11:08AM BY INNA BURCH MA, ANNOTATI ON/ADDEN DUM Liseth Jessee regalado [facility] 6 09:16:08 Conjunct ivitis 5169586 Completed 201212/09/2013 RECORDED 02/02/20 13 11:08AM BY INNA BUCRH MA, ANNOTATI ON/ADDEN DUM Lisethakshat regalado [facility] 6 09:16:08 Patient status finding 089220996 Completed 201305/16/[address] [facility] 7 10:10:25 Depressi ve disorder 07124923 Active [address] [facility] 7 09:13:24 Urinary tract obstruct ion 5508022 Completed 201308/22/[address] [facility] 7 09:13:25 Hyperlip idemia 47160665 Active [address] [facility] 6 09:16:09 Palpitat ions 12155575 Completed 201305/16/[address] [facility] 7 10:11:12 Sciatica 94622668 Completed 201305/16/2016 STORY: RIGHT LEG PAIN/SAMANTHA ERABLE.; RECORDED 11/15/19 3:03PM BY INNA BURCH MA, OFFICE VISIT Leslie regalado [facility] 7 10:10:28 Vitamin D deficien cy 58710311 Active [address] [facility] 6 09:16:09 Screenin g for malignan t neoplasm of colon Completed 201305/16/[address] [facility] 7 10:10:53 Adult health examinat ion Completed 201305/16/[address] [facility] 7 10:10:49 Hearing loss 00304731 Completed 201305/16/2016 IMPRESSI ON: AUDIOMET RY ABNORMAL , HE WILL SELF REFER TO ENT; RECORDED 11/15/19 14 11:01PM BY MATTHEW LOVE, OFFICE VISIT Leslie regalado [facility] 7 10:10:31 Skin sensatio n disturba ale 27849389 Completed 201305/16/[address] [facility] 7 10:11:16 Administ ration of diphther ia, pertussi s, and tetanus vaccine Completed 201305/16/[address] [facility] 7 10:11:06 Ganglion and cyst of synovium , tendon and bursa Active 2013 Leslie Ervin [place] [facility] 7 09:13:16 Primary erectile dysfunct ion 447923157 Active 2016 Damian JimMaiakenna blum [facility] 7 09:06:12 Problem Notes None recorded. Procedures Surgical History Date Name Laterality Status Provider Name and Address Organization Details Recorded Time 9 excision of lipoma of back completed Gloria Money [facility] 04/22/2019 10:32:24 5 Colonoscopy completed Juancarlos Millard PA-C [address] [address], [place], [address], [facility] 05/31/2018 09:23:54 2 Prostate Surgery completed Lesliekristi Lorenzoisidro AGUILERA [facility] 05/16/2016 10:09:36 0 Cancer Surgery completed Leslie Ervin MA [facility] 05/16/2016 10:09:36 3 Orthopedic Surgery completed Lesliekristi Ervin MA [facility] 05/16/2016 10:09:36 Imaging Results None recorded. Procedure [...] REFILL REQUEST; THIS ORDER DISCONTI NUED PER [facility]. Not Available Not Available Not Available [...] Updated DateTime 8 182.88 cm 23.9 kg/m2 50608.9 6 g 99 % 99 % 72 /min 98.3 [degF] Leslie Ervin [facility] [place] 8 15:59:46 Date Recorded Body height Body mass index (BMI) Body weight Oxygen saturation Oxygen saturation in Arterial blood by Pulse oximetry Heart rate Body temperature Systolic And Diastolic Provider Name and Address Organization Details Last Updated DateTime 9 182.88 cm 24.4 kg/m2 86353.6 3 g 98 % 98 % 75 /min 97.1 [degF] 107/67 mm[Hg] Leslie Ervin [facility] 9 08:51:16 Date Recorded Body height Body weight Body mass index (BMI) Oxygen saturation Oxygen saturation in Arterial blood by Pulse oximetry Heart rate Body temperature Provider Name and Address Organization Details Last Updated DateTime 7 182.88 cm 71505.9 8 g 14.6 kg/m2 98 % 98 % 73 /min 98.1 [degF] Leslie Ervin [facility] 7 14:25:01 Date Recorded Body height Body mass index (BMI) Body weight Oxygen saturation Oxygen saturation in Arterial blood by Pulse oximetry Heart rate Body temperature Systolic And Diastolic Provider Name and Address Organization Details Last Updated DateTime 7 182.88 cm 23.4 kg/m2 76231.3 2 g 98 % 98 % 72 /min 97.4 [degF] 110/64 mm[Hg] [facility] 7 09:46:31 Date Recorded Body height Body mass index (BMI) Body weight Heart rate Body temperature Oxygen saturation Oxygen saturation in Arterial blood by Pulse oximetry Systolic And Diastolic Provider Name and Address Organization Details Last Updated DateTime 8 182.88 cm 24.4 kg/m2 86927.6 3 g 55 /min 97.1 [degF] 98 % 98 % 103/57 mm[Hg] Leny Herrera MA [facility] 8 09:15:56 Social History Question Answer Notes LastModified by Organizat ion Details LastModified Time Tobacco Smoking Status Never Smoker WILLY Alfredo [facility] 09/26/2014 16:35:57 Do You Have An [...] 11/16/2014 Are you able to care for yourself independently ? Yes Information not available 11/16/2014 What is [...] abigby Not available 2016 10:09:00 Sister Malignant neoplasm of breast 54 abigby Not available 2016 10:09:00 Brother Foot-drop 63 periph neuro abigby Not available 05/31/2018 08:42:14 Medical History Condition Response Other N Gout N Kidney Stones N Blood Diseases N Hyperthyroidism N Breast Cancer N Depression Y COPD N Lung Disease N Hypothyroidism N Defects or Inherited Disease N Anesthesia Complications N Headaches/Migraines N Varicose Veins N Anxiety Disorder N Obesity N Vision or Eye Problems [...] N Bladder Problems N Mental Illness N Ovarian Cancer N Diabetes N Blood Transfusions N Seizures/Epilepsy N Tuberculosis N AIDS/HIV N Congestive Heart Failure (CHF) N Eczema N Diverticulitis N Abuse/Domestic Violence N Asthma N Allergies N Reflux/GERD N Hepatitis N Pulmonary Embolism N Hypertension N Chicken Pox N Autism Spectrum Disorder (ASD) N Osteoporosis N Immunizations Vaccine Type Date Status Note Provider Nam e and Address Organization Details Recorded Time Tdap 4 completed Not Available [facility] 12/15/2013 08:31:42 Td (adult) 6 completed Liseth Hooks null, [facility] 07/31/2014 11:00:07 zoster live [address] [facility] 10/23/2015 09:16:09 Influenza, split virus, quadrivalent, preservative 8 completed WILLY Alfredo, [facility] 04/09/2018 09:14:42 Influenza, split virus, trivalent, preservative 7 completed Not Available [facility] 11/15/2013 13:23:27 Hep B, adult 8 completed Not Available [facility] 11/15/2013 13:23:27 Hep B, adult 8 completed Not Available [facility] 11/15/2013 13:23:27 Hep B, adult 9 completed Not Available [facility] 11/15/2013 13:23:27 Novel [id number] , all formulations 0 completed Not Available [facility] 11/15/2013 13:23:27 Past Encounters Encounter ID Performer Location Encounter Start Date Encounter Closed Date Diagnosis/Indication Diagnosis SNOMED-CT Code Diagnosis ICD10 Code Diagnosis IMO Codes Diagnosis Note [id number] [employer] er[facility] [address] [facility] [place] [address] 12/18/2006 00:00:00 [id number] autoEComm erce [address] [facility] [place] [address] 03/18/2007 00:00:00 [id number] [employer]Comm erce [address] [facility] [place] [address] 04/07/2007 00:00:00 [id number] autoEComm erce [address] [facility] [place] [address] 08/07/2008 00:00:00 [id number] autoEComm erce [address] [facility] [place] [address] 10/18/2008 00:00:00 [id number] autoEComm erce [address] [facility] [place] [address] 09/06/2009 00:00:00 [id number] autoEComm erce [address] [facility] [place], [place] [address] 09/10/2010 00:00:00 [id number] autoEComm erce [address] [facility] [place], [place] [address] 07/14/2011 00:00:00 [id number] autoEComm erce [address] [facility] [place], [place] [address] 10/13/2011 00:00:00 [id number] autoEComm erce [address] [facility] [place], [place] [address] 07/30/2012 00:00:00 [id number] autoEComm erce [address] [facility] [place] [address] 01/11/2013 00:00:00 [id number] autoEComm erce [address] [facility] [place] [address] 02/01/2013 00:00:00 [id number] autoEComm erce [address] [facility] [place] [address] 11/14/2013 00:00:00 [id number] GUNNAR Horowitz Main Office [address] [address] [place] [address] 09/26/2014 16:26:37 09/26/2014 17:03:32 Impacted cerumen [id number] May use debrox or OTC equivalent weekly to prevent buildup of wax. Otitis externa 1404358 Marnie tis externa left ear, ofloxacin as prescribed x 7-10 days, avoid swimming/ getting water in ear until sx have resolved. 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 see Dr Stephens note from last year [id number] Juancarlos Millard PA-C Main Office [address] [address] [place] [address] 01/28/2017 09:33:38 01/28/2017 10:22:47 Cellulitis of forearm 02462440 L03.114 mild but getting progressiv goldie slightly worse at 1 month out - no h/o DM - also has some occ pus dc - ? mrsa - will rx c bactrim as dir, f/u if no better [id number] Damian blum MD Main Office [address] [address] [place] [address] 05/28/2017 15:53:32 05/28/2017 16:42:45 Adult health examination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
[2025-02-02 19:32] VITALS: BP 104/72; PULSE 82; RESP 18; TEMP 37.3; O2SAT 97
[2025-02-02 21:24] VITALS: BP 136/87; PULSE 82; RESP 16; TEMP 37.3; O2SAT 97
[2025-02-02] MEDS: iohexoL 350 MG/ML 100 ML INFUS..BTL 65 ML IV (23:19)
[2025-02-03] VITALS (28 sets, daily range): BP systolic 79–122; BP diastolic 50–76; PULSE 63–134; RESP 11–22; TEMP 36.1–37.4; O2SAT 95–100; BMI 25.3
--- NOTE | 2025-02-03 | ECG_ITS ---
Test Reason : tachycardic Blood Pressure : */* mmHG Vent. Rate : 133 BPM Atrial Rate : 133 BPM P-R Int : 146 ms QRS Dur : 84 ms QT Int : 272 ms P-R-T Axes : 139 64 242 degrees QTcB Int : 404 ms Probable atrial flutter with rapid rate Abnormal ECG When compared with ECG of 02-Feb-2025 17:16, Rhythm change Vent. rate has increased by 46 bpm Referred By: Fani Turpin Electronically Signed By: GARY TAVERAS
--- NOTE | 2025-02-03 | ECG_ITS ---
Test Reason : change in rhythm Blood Pressure : */* mmHG Vent. Rate : 70 BPM Atrial Rate : 70 BPM P-R Int : 158 ms QRS Dur : 82 ms QT Int : 346 ms P-R-T Axes : 87 68 116 degrees QTcB Int : 373 ms Normal sinus rhythm Nonspecific ST and T wave abnormality Abnormal ECG When compared with ECG of 03-Feb-2025 07:29, Sinus rhythm has replaced Ectopic atrial rhythm Vent. rate has decreased by 63 bpm Referred By: Fani Turpin Electronically Signed By: GARY TAVERAS
--- NOTE | 2025-02-03 02:53 | PM.IMHP ---
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 Patient was diagnosed with an acute CVA and pericarditis previous admission from 01/14 and was discharged on 01/19. Patient was started on aspirin 81 mg daily and his pravastatin was changed to atorvastatin 80 mg at bedtime. Patient was not started on Plavix. Patient also currently complaining of internal chest pain, chest hurting most when laughing or deep breathing. Patient states he just does not feel right and has not again for the last 5 days. Patient was actually scared to be home alone while his was at work during the day. Patient does have CIDP in continues to work with neurologist in the [place] area. This can result in spontaneous falls and patient denies any recent falls or injuries. Patient currently denying any chest pain at rest, shortness of breath at rest or with exertion, dysphagia, abdominal pain, nausea or vomiting. Patient is not having any issues with diarrhea and was experiencing some mild constipation and finally had a bowel movement earlier today. Patient states he is very weak in the lower extremities and denies any myalgias. Patient stated upon arrival to the ED, patient barely made it into the entrance of the ED with walking. Patient is not using an assistive device currently. Workup in the ED included chest x-ray which was negative for acute findings and a chest CTA to rule out PE as patient indicated he was experienced shortness breath to the emergency room provider. CTA negative for PE. Small bilateral pleural effusions with a moderate pericardial effusion and trace perisplenic ascites of uncertain etiology were noted. No evidence of pneumonia noted. Patient has no leukocytosis but a very 0 fever 99.4 max. CRP and sed rate both elevated. UA pending. Patient's COVID, RSV and flu testing were all negative. EKG normal sinus rhythm with no diffuse ST changes. Patient currently hemodynamically stable without evidence of tamponade. Troponins negative and BNP 231. Patient's total CK level was normal at 98. Magnesium 2.3 TSH also normal at 1.84. Emergency room provider reviewed case with Cardiology and recommendation made for admission for pericardial effusion and workup. Review of Systems Review of Systems: Patient currently denies any chest pain at rest, but is having some chest discomfort with laughing or movement. Patient denies any shortness of breath at rest or with exertion currently. Patient is reporting profound weakness in the lower extremities but no myalgia. Patient denies any recent falls. Patient is not having any nausea, vomiting, abdominal pain, constipation or diarrhea. Yes all other systems are reviewed and are negative [facility] Medical History (Updated 02/03/25 @ 03:36 by DEREJE Ng) Pericarditis Peripheral demyelinating neuropathy JACOB positive Orthostatic hypertension Restless legs syndrome CVA (cerebral vascular accident) Cognitive disorder Back pain Anxiety Depression Hyperlipidemia Non-melanoma skin cancer Cognitive capacity: Alert and orientated x3 Functional capacity: independent ambulation (Patient reports muscle fatigue and difficulty walking) Family History Father Myocardial infarction Family/Other Cancer Family/Other Breast cancer Mother Skin cancer Surgical History H/O cervical spine surgery History of ear surgery Social History Household Members: Spouse Housing: House Do you presently have visiting nurse or other home services: No Alcohol intake: current Alcohol intake frequency: holidays/special occasions only Alcohol type: beer and hard liquor Patient Tobacco Use Status: Never used Tobacco Smoked in Last 30 Days: No e-Cigarette/Vaping Use: Never Used Use of substances other than those prescribed or required for medical reasons: No Advance Directives: No Advance Directives Information Provided: No Nutrition Risks: No Nutritional Risk service: No Current occupational status: employed 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 Ebola Risk: Travel/Contact With Anyone From Affected Area/s: No Has Patient Experienced Ebola Symptoms: No Meds Allergies Allergy/AdvReac Type Severity Reaction Status Date / Time No Known Allergies Allergy Verified 02/02/25 17:11 Active Medications: Current Medications Acetaminophen (Acetaminophen 325 Mg Tablet) 650 mg PO Q6H PRN PRN Reason: Pain, Mild 1-3,fever,headache Albuterol/Ipratropium (Albuterol/Iprat 2.5/0.5mg 3 Ml Ampul.Neb) 3 ml INHALE Q4H PRN PRN Reason: Shortness of Breath/Wheezing Calcium Carbonate (Calcium Carbonate 750 Mg Tab.Chew) 750 mg PO Q4H PRN PRN Reason: Heartburn Sodium Chloride (Ns) 1,000 mls @ 100 mls/hr IVCONT .Q10H JERRY Magnesium Hydroxide (Milk Of Magnesia 30 Ml Oral.Susp) 30 ml PO DAILY PRN PRN Reason: Constipation Melatonin (Melatonin 3 Mg Tablet) 6 mg PO BEDTIME PRN PRN Reason: Insomnia Ondansetron HCl (Ondansetron Hcl 4 Mg/2 Ml Vial) 4 mg IVPUSH Q8H PRN PRN Reason: Nausea and Vomiting Polyethylene Glycol (Polyethylene Glycol 3350 17 Gm Powd.Pack) 17 gm PO DAILY PRN PRN Reason: Constipation Senna (Sennosides 8.6 Mg Tablet) 17.2 mg PO BEDTIME JERRY Sodium Chloride (0.9 % Sodium Chloride Flush 3 Ml Syringe) 3 ml IVFLUSH QSHIFT JERRY Home Medications ?Medication ?Instructions ?Recorded ?Confirmed ?Last Taken ?Type colchicine 0.6 mg tablet 0.6 mg PO DAILY 01/17/25 01/17/25 01/17/25 09:00 History lamotrigine 100 mg tablet 300 mg PO DAILY 01/17/25 01/17/25 01/17/25 History lamotrigine 200 mg tablet 200 mg PO BEDTIME 01/17/25 01/17/25 01/16/25 History (Lamictal) melatonin 5 mg disintegrating 5 mg PO BEDTIME PRN insomnia 01/17/25 01/17/25 Unknown History tablet omeprazole 20 mg capsule,delayed 20 mg PO BID@0630,1630 01/17/25 01/17/25 01/17/25 History release Physical Exam Vital Signs and Narrative: Vital Signs: Last Vital Signs Temp 99.4 F 02/03/25 00:16 Pulse 72 02/03/25 00:16 Resp 18 02/03/25 00:16 BP 105/73 02/03/25 00:16 Pulse Ox 97 02/03/25 00:16 O2 Del Method Room Air 02/03/25 00:16 BMI result Body Mass Index 24.6 Alert and orientated X3, able to give good history. Patient in good spirits, Neuro: CN II-X11 intact, no deficits, visual acuity intact EYES: PERRLA, EOM intact, sclerae nonicteric, conjunctiva pink ENT: hearing intact, no issues with swallowing, uvula midline, lips moist, nares patent no epistaxis Cardiac: S1 S2 RRR, no murmur, no JVD, no edema in Lower ext Pulmonary: lungs clear to auscultation B Abdominal: BS active in all 4 quadrants, no guarding, tenderness, rebounding MSK: strength 5/5 upper and lower extremities : no CVA tenderness no bladder distension Extremities: no edema in lower extremities, PT and DP pulses palpable +2 Psych: mood stable, judgement and insight good Skin: No new rashes or lesions Results Labs 02/02/25 17:23 02/02/25 17:23 Labs: Laboratory Results - last 24 hr 02/02/25 17:23 MCV 88.2 MCH 30.9 MCHC 35.0 RDW 13.2 Plt Count 212 MPV 10.3 Immature Gran % (Auto) 0.2 Neut % (Auto) 73.3 H Lymph % (Auto) 18.6 L Childress % (Auto) 7.5 Eos % (Auto) 0.3 Baso % (Auto) 0.1 Lymph # (Auto) 1.7 Childress # (Auto) 0.7 Eos # (Auto) 0.0 Baso # (Auto) 0.0 Abs Immat Gran (auto) 0.02 Absolute Neuts (auto) 6.5 Absolute Nucleated RBC 0.000 Nucleated RBC % (auto) 0.0 ESR 25 H Anion Gap 12 Estim Creat Clear Calc 82.0 Estimated GFR > 60 Random Glucose 167 H Calcium 8.7 Total Bilirubin 1.0 AST 17 ALT 22 Alkaline Phosphatase 63 Troponin I High Sens 4.0 D C-Reactive Protein 17.39 H NT-Pro-B Natriuret Pep 231.0 Total Protein 7.0 Albumin 4.3 COVID-19 ([facility]) Negative COVID-19 Clin Com See Note Influenza Type A ([facility]) Negative Influenza Type B ([facility]) Negative Influenza A & B Note See Note ECG Attestation: I personally reviewed and interpreted this ECG as follows: (Normal sinus rhythm no diffuse ST changes ) Prior ECG tracings: available for review Imaging Radiologist's Impressions: CIMPRESSION: 1. No acute pulmonary embolus. 2. Small bilateral pleural effusions, moderate pericardial effusion, and trace perisplenic ascites of uncertain etiology. 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 Patient found to have a moderate pericardial effusion via CTA. Case reviewed with Cardiology in the ED and recommendation made for admission. Acute pericardial effusion with recent pericardiits and hx of elevated JACOB titer Cardiology consulted Echo ordered for AM Continue colchicine ESR and CRP elevated COVID, flu and RSV all negative Repeat JACOB titer Temp max 99.4, no leukocytosis No evidence of tamponade or diffuse ST changes on ECG COAGS pending Recent Acute CVA Posterior Left frontal Lobe Pt discharged 01/19 Started Atorvastatin 80 and taken off pravastatin - CK level today is normal Pt on ASA 81 mgs daily Neuro exam reassuring Persistent weakness and fatigue x5 days Noted low-grade temp 99.4 degrees PT eval recommended Consider neurological consultation if no improvement Neuro exam reassuring, no indication for further diagnostics including MRI of the brain - do not suspect acute stroke HLD Continue atorvastatin at 80 mg as CK is normal LFTs stable RLS Continue Requip CIDP Follow with specialist in the community Depression/Anxiety Continue Lamotrignine Qtc normal limits DVT prophylaxis: Held secondary to pericardial effusion Med rec pending Full Code status Quality Stroke Does the patient have a stroke diagnosis?: No Reason for No Anti-thrombotic by Day Two: Contraindicated VTE Prior VTE?: No VTE Risk Level:: Medical - moderate - high VTE Device Contraindication: N/A - Device Ordered VTE Drug Contraindication: Treatment Not Indicated
[2025-02-03 03:09] LABS: Magnesium 2.3 mg/dL (1.6-2.6)
[2025-02-03 06:15] LABS: MANUAL DIFF FLAG NO
[2025-02-03 06:24] LABS: Hematocrit 37.2 % (42.0-52.0); Hemoglobin 12.5 g/dl (14.0-18.0); Imm Gran Abs Auto 0.01 X10*3/uL (0.00-0.03); Imm Gran Pct Auto 0.2 % (0.0-0.4); Lymphocytes Absolute Auto 1.4 X10*3/uL (1.2-4.9); Mean Corpuscular HGB Conc 33.6 g/dl (31.0-36.0); Mean Corpuscular Hemoglobin 30.3 pg (27.0-33.0); Mean Corpuscular Volume 90.3 fL (80.0-98.0); NRBC Abs Auto 0.000 X10*3/uL (0.0-0.012); NRBC Pct Auto 0.0 /100WBC (0.0-0.2); Platelet Count 198 X10*3/uL (160-400); Red Blood Count 4.12 X10*6/uL (4.60-5.80); White Blood Count 6.6 X10*3/uL (4.8-10.8)
[2025-02-03 06:26] LABS: INTERNATIONAL NORM RATIO 1.2 (0.9-1.1); Prothrombin Time 13.8 SEC (10.9-12.4)
[2025-02-03 06:29] LABS: Partial Thromboplastin Time 27.6 SEC (26.7-34.1)
[2025-02-03 06:35] LABS: Anion Gap 12 (12-20); Blood Urea Nitrogen 15 mg/dL (9-16); Calcium 8.5 mg/dL (8.4-10.2); Carbon Dioxide 26 mmol/L (22-29); Chloride 104 mmol/L (96-108); Creatinine Clr Calc Pharmacy 85.7; Estimated Glomerular Filt Rate > 60; Potassium 3.8 mmol/L (3.3-5.1); Sodium 138 mmol/L (135-145)
--- NOTE | 2025-02-03 06:43 | HO.NURTONUR ---
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 Patient was diagnosed with an acute CVA and pericarditis previous admission from 01/14 and was discharged on 01/19. Patient was started on aspirin 81 mg daily and his pravastatin was changed to atorvastatin 80 mg at bedtime. Patient was not started on Plavix. Patient also currently complaining of internal chest pain, chest hurting most when laughing or deep breathing. Patient states he just does not feel right and has not again for the last 5 days. Patient was actually scared to be home alone while his was at work during the day. Patient does have CIDP in continues to work with neurologist in the [place] area. This can result in spontaneous falls and patient denies any recent falls or injuries. Patient currently denying any chest pain at rest, shortness of breath at rest or with exertion, dysphagia, abdominal pain, nausea or vomiting. Patient is not having any issues with diarrhea and was experiencing some mild constipation and finally had a bowel movement earlier today. Patient states he is very weak in the lower extremities and denies any myalgias. Patient stated upon arrival to the ED, patient barely made it into the entrance of the ED with walking. Patient is not using an assistive device currently. Workup in the ED included chest x-ray which was negative for acute findings and a chest CTA to rule out PE as patient indicated he was experienced shortness breath to the emergency room provider. CTA negative for PE. Small bilateral pleural effusions with a moderate pericardial effusion and trace perisplenic ascites of uncertain etiology were noted. No evidence of pneumonia noted. Patient has no leukocytosis but a very 0 fever 99.4 max. CRP and sed rate both elevated. UA pending. Patient's COVID, RSV and flu testing were all negative. EKG normal sinus rhythm with no diffuse ST changes. Patient currently hemodynamically stable without evidence of tamponade. Troponins negative and BNP 231. Patient's total CK level was normal at 98. Magnesium 2.3 TSH also normal at 1.84. Emergency room provider reviewed case with Cardiology and recommendation made for admission for pericardial effusion and workup. Plan: Acute pericardial effusion with recent pericardiits and hx of elevated JACOB titer Cardiology consulted Echo ordered for AM PT eval recommended Consider neurological consultation if no improvement Med rec pending
--- NOTE | 2025-02-03 07:33 | PC.NURSE ---
Assumed care of pt. On initial assessment, noted that HR was 130s. Had been in 60-80s prior. Pt denied CP/SOB. EKG obtained and admitting MD notified.
--- NOTE | 2025-02-03 07:53 | CA_ITS ---
Transthoracic Echocardiogram Patient (Last, First, Middle): Chilo Lee, Gender: Male Date of : 1955 Age: 69 Procedure Date: 02/03/2025 Procedure Type: Transthoracic Echocardiogram Location: ER Height: 182.88 cm Weight: 82.1 kg BSA: 2.04 m2 Heart Rate: 130 bpm BP: 102 / 67 mmHg Benefits Assistant: SB Referring MD: Fani Turpin MD Symptoms: tamponade physiology? tachy/ borderline hypoten. Study Quality: Adequate/limited ordered ECG Rhythm: Atrial flutter with rapid rate Conclusions: - [id number] circumferential pericardial effusion noted. No evidence of tamponade. Findings Venous The inferior vena cava is normal in size and collapses greater than 50% with inspiration. Pericardium/Pleural There are no definitive echocardiographic findings of tamponade physiology. Nekhy-bp-[id number] circumferential pericardial effusion noted. No evidence of tamponade. Measurements -upto 1.3cm over Left ventricle; 1.4cm over right ventricle. Prior Study Comparison Changes noted compared to prior study dated: 01/18/2025. Pericardial effusion noted. Measurements 2D Linear Measurements IVSd: 0.92 0.6-0.9/0.6-1.0 cm LVIDd: 3.87 3.9-5.3/4.2-5.9 cm LVIDd Index: 1.90 2.4-3.2/2.2-3.1 cm/m2 LVPWd: 1.17 0.7-1.1 cm LV Mass: 160.01 67-162/88-224 g LV Mass Index: 78.44 43-95/49-115 g/m2 LVOT Diam: 2.00 3.0+(-)1.3 cm Mitral Valve E'Lateral: 17.70 E'Medial: 14.30 LVOT LVOT Pk Hector: 0.86 LVOT Mn Hector: 0.56 LVOT VTI: 0.12 LVOT Pk Grad: 3.00 LVOT Mn Grad: 1.00 LVOT Diam: 2.00 LVOT Area: 3.14 Diastolic Function E'Medial: 14.30 E' Laterial: 17.70 Updated in Other Vendor System with Status of Final Michael Osorio MD electronically signed on 02/03/2025 11:35:25 AM with status of Final
--- NOTE | 2025-02-03 08:16 | PC.NURSE ---
Admitting MD and ED MD at bedside with US. Possible tamponade visualized. Stat bedside ECHO ordered. Pending results. Pt continues to have HR 130s, BP marginal for pt. SBP low 100s. Pt denies CP however endorses pain with deep inspiration. Shallow breathing noted. MD Turpin gave verbal order for 500ml NS bolus. Will continue to monitor closely.
--- NOTE | 2025-02-03 08:25 | P.PNIM_ITS ---
Subjective Subjective Date of Service: 02/03/25 Interval History: Contacted to bedside by RN for tachycardia 130-140 bpm. BP 100/60's Patient symptomatic with dizziness, tachypnoea and weakness. No chest pain, no diaphoresis, no retrosternal pressure, coughing or wheezing. Bedside US performed, raising concerns for possible tamponade physiology. STAT ECHO ordered to bedside for emergent formal evaluation of patient's cardiac physiology. Contacted Cardiology for further reccs and impression. Interventional Radiology was consulted for possible pericardiocentesis; Too high-risk at this time given moderate volume of pericardial effusion. Atrial flutter was addressed with diltiazem, leading to hypotension. MAP >65 Hypotension improved with IV fluid bolus Amiodarone was administered as per Cardiology recommendations 400 mg b.i.d. Review of Systems Review of Systems: Yes all other systems are reviewed and are negative Physical Exam 2 Exam: Exam: General: A&O x3, oriented to time place person and situation, comfortable, no pain Cardiac: S1, S2 auscultated with no S3/4, no MRG. Well perfused. Distant heart sounds. Respiratory: Normal breath sounds auscultated throughout all lung zones, without wheezing, rales. Normal rate. GI/ : No abdominal pain on palpation, no masses or distentions. MSK: Normal ambulation without pain at bony prominences or musculature Neurological: Normal neurological examination on overview, without obvious CN II-XII abnormalities. Vital Signs: Vital Signs: Last Vital Signs Temp 98.7 F 02/03/25 07:51 Pulse 133 H 02/03/25 07:51 Resp 17 02/03/25 07:51 BP 102/68 02/03/25 07:51 Pulse Ox 97 02/03/25 07:51 O2 Del Method Room Air 02/03/25 07:51 BMI result Body Mass Index 24.6 Objective Data Active Medications Acetaminophen (Acetaminophen 325 Mg Tablet) 650 mg PO Q6H PRN PRN Reason: Pain, Mild 1-3,fever,headache Albuterol/Ipratropium (Albuterol/Iprat 2.5/0.5mg 3 Ml Ampul.Neb) 3 ml INHALE Q4H PRN PRN Reason: Shortness of Breath/Wheezing Calcium Carbonate (Calcium Carbonate 750 Mg Tab.Chew) 750 mg PO Q4H PRN PRN Reason: Heartburn Colchicine (Colchicine 0.6 Mg Tablet) 0.6 mg PO DAILY [facility] Sodium Chloride (Ns) 1,000 mls @ 100 mls/hr IVCONT .Q10H [facility] Last Admin: 02/03/25 03:51 Dose: 100 mls/hr Documented By: SAYRA Magnesium Hydroxide (Milk Of Magnesia 30 Ml Oral.Susp) 30 ml PO DAILY PRN PRN Reason: Constipation Melatonin (Melatonin 3 Mg Tablet) 6 mg PO BEDTIME PRN PRN Reason: Insomnia Ondansetron HCl (Ondansetron Hcl 4 Mg/2 Ml Vial) 4 mg IVPUSH Q8H PRN PRN Reason: Nausea and Vomiting Polyethylene Glycol (Polyethylene Glycol 3350 17 Gm Powd.Pack) 17 gm PO DAILY PRN PRN Reason: Constipation Senna (Sennosides 8.6 Mg Tablet) 17.2 mg PO BEDTIME [facility] Sodium Chloride (0.9 % Sodium Chloride Flush 3 Ml Syringe) 3 ml IVFLUSH QSHIFT [facility] Last Admin: 02/03/25 07:40 Dose: Not Given Documented By: BRYANNA Non-Admin Reason: IV Running Labs 02/03/25 05:16 02/03/25 05:16 Labs: Laboratory Results - last 24 hr 02/02/25 02/03/25 02/03/25 17:23 05:15 05:16 MCV 88.2 90.3 MCH 30.9 30.3 MCHC 35.0 33.6 RDW 13.2 13.1 Plt Count 212 198 MPV 10.3 11.2 Immature Gran % (Auto) 0.2 0.2 Neut % (Auto) 73.3 H 57.8 Lymph % (Auto) 18.6 L 21.2 [place] % (Auto) 7.5 19.7 H Eos % (Auto) 0.3 0.9 Baso % (Auto) 0.1 0.2 Lymph # (Auto) 1.7 1.4 [place] # (Auto) 0.7 1.3 H Eos # (Auto) 0.0 0.1 Baso # (Auto) 0.0 0.0 Abs Immat Gran (auto) 0.02 0.01 Absolute Neuts (auto) 6.5 3.8 Absolute Nucleated RBC 0.000 0.000 Nucleated RBC % (auto) 0.0 0.0 ESR 25 H PT 13.8 H D INR 1.2 H APTT 27.6 Anion Gap 12 12 Estim Creat Clear Calc 82.0 85.7 Estimated GFR > 60 > 60 Random Glucose 167 H 113 Lactic Acid 1.0 Calcium 8.7 8.5 Magnesium 2.3 Total Bilirubin 1.0 AST 17 ALT 22 Alkaline Phosphatase 63 Total Creatine Kinase 98 Troponin I High Sens 4.0 D C-Reactive Protein 17.39 H NT-Pro-B Natriuret Pep 231.0 Total Protein 7.0 Albumin 4.3 TSH 1.84 COVID-19 ([facility]) Negative COVID-19 Clin Com See Note Influenza Type A ([facility]) Negative Influenza Type B ([facility]) Negative Influenza A & B Note See Note Assessment and Plan (1) Chronic pericardial effusion: Status: Acute (2) Cardiac tamponade: Status: Acute (3) Atrial flutter with rapid ventricular response: Status: Acute (4) Hypotension: Status: Acute (5) JACOB positive: Status: Acute (6) Acute pericardial effusion: Status: Acute (7) Peripheral demyelinating neuropathy: Status: Acute (8) Numbness and tingling: Status: Acute Plan 69 yo male with PMH pericarditis, recent acute stroke discharge from the hospital 01/19/2025, CIDP managed by neurologist in [place], positive JACOB titer (patient did see a side show entertainer 1 year prior with no recommendations for follow-up), hyperlipidemia, depression and anxiety, orthostatic hypotension came into the emergency department to be seen for worsening overall weakness and fatigue over the last 5 days. Patient found to have a moderate pericardial effusion via CTA. Case reviewed with Cardiology in the ED and recommendation made for admission. Acute pericardial effusion Chronic pericarditis A flutter RVR Hypotension Recent diagnosis of pericarditis, with new increase in CRP representing an acute inflammation. The patient is ibuprofen was held on previous admission 2/2 recent CVA Clinical reasoning for holding ibuprofen was 2/2 recent ischemic CVA; to prevent further plaque instability or progression of hemorrhage. Has elevated JACOB titer PLAN - cardiology recommendations greatly appreciated - amiodarone 400 mg b.i.d. - repeat echocardiography during inpatient (limited to evaluate for tamponade physiology) - IVF 100 cc/hour - bolus IVF NaCl 500 cc for hypotension - interventional Radiology was consulted: High-risk procedure, hold for now unless clinical instability presents - ibuprofen 800 mg - continue colchicine Recent Acute CVA Posterior Left frontal Lobe Pt discharged 01/19 Continue Atorvastatin 80 Pt on ASA 81 mgs daily Neuro exam reassuring Persistent weakness and fatigue x5 days Noted low-grade temp 99.4 degrees PT eval recommended Consider neurological consultation if no improvement Neuro exam reassuring, no indication for further diagnostics including MRI of the brain - do not suspect acute stroke HLD Continue atorvastatin at 80 mg as CK is normal LFTs stable RLS Continue Requip CIDP Follow with specialist in the community Depression/Anxiety Continue Lamotrignine Qtc normal limits [employer] - VTE: SCDs - CODE STATUS: Full code - DIET: Regular Total time managing care of this patient today: 60 minutes. Quality Stroke Does the patient have a stroke diagnosis?: No Reason for No Anti-thrombotic by Day Two: Contraindicated VTE Prior VTE?: No VTE Risk Level:: Medical - moderate - high VTE Device Contraindication: N/A - Device Ordered VTE Drug Contraindication: Treatment Not Indicated
--- NOTE | 2025-02-03 08:40 | PC.NURSE ---
Cardiology and admitting hospitalist at bedside for stat echo. VO from cards to give 10mg IV diltiazem. Med given while MDs at bedside. Pt's HR briefly dropped to 98 but did not sustain at lower rate. Pt became hypotensive. MD ordered 1L NS fluid bolus. C/o left sided chest pain. Denies SOB.
--- NOTE | 2025-02-03 09:24 | PHA.MEDREC ---
Addendum entered by Lucia Person RPh 02/03/25 10:40: MED REC REVIEWED BY [facility] Original Note: Pharmacy Consult ? Medication Reconciliation Pharmacy has completed the medication reconciliation. Spoke with pt and pt at bedside and pt confirmed his medication. Pt just DC'd 01/19 and confirmed the dc meds are up to date and verified the med list with me.
--- NOTE | 2025-02-03 09:59 | P.CONCA_ITS ---
History of Present Illness History of Present Illness Date of Service: 02/03/25 Chief complaint: chest pain, pericardial effusion Narrative: This is a cardiology consultation regarding congestive heart failure. Discussed with patient and and also reviewed the recent chart. Patient has many comorbidities. He has a chronic demyelinating polyneuropathy, recent pericarditis, recent stroke. It seems that he has not been feeling good since the time of discharge. He has been getting some chest pains that are quite pleuritic. Can happen with breathing, sudden body positions. He presented to the ER and found to have a pericardial effusion on CT scan. Additionally, inflammatory markers like CRP were quite high suggesting continuing pericarditis. This morning, he went into atrial fibrillation with rapid rate. Overall, he states he would just does not feel good in general but cannot pinpoint what it is. Still has a pleuritic chest pain. He cannot feel any palpitations. Review of Systems 2 Review of Systems: Yes all other systems are reviewed and are negative Constitutional: Constitutional: Reports as per HPI and Reports no additional constitutional complaints Eyes: Eyes: Reports as per HPI and Denies no additional eye complaints ENT: Denies system reviewed and no additional complaints, except as documented and Reports as per HPI Cardiovascular: Cardiovascular: Reports as per HPI, Reports no additional cardiovascular complaints, Denies acrocyanosis, Denies cool extremities, Reports chest pain, Denies leg edema, Denies lightheadedness, Denies palpitations and Denies dyspnea Respiratory: Respiratory: Reports as per HPI, Denies no additional respiratory complaints and Denies dyspnea Gastrointestinal: Gastrointestinal: Reports as per HPI and Denies no additional gastrointestinal complaints Genitourinary: Genitourinary: Reports no additional male genitourinary complaints and Reports as per HPI Musculoskeletal: Musculoskeletal: Reports no additional musculoskeletal complaints and Reports as per HPI Integumentary/Breasts: Skin/Breast: Reports system reviewed and no additional complaints, except as docu Neurologic: Reports system reviewed and no additional complaints, except as documented and Reports as per HPI Psychiatric: Psychiatric: Reports no additional psychiatric complaints and Reports as per HPI Endocrine: Endocrine: Reports no additional endocrine complaints, Reports as per HPI and Denies palpitations Hematologic/Lymphatic: Hematologic/Lymphatic: Reports no additional hematologic/lymphatic complaints and Reports as per HPI Allergic/Immunologic: Allergic/Immunologic: Reports no additional allergic/immunologic complaints and Reports as per HPI [facility] Past Medical History Medical History (Updated 02/03/25 @ 10:09 by Michael Osorio MD) Pericarditis Peripheral demyelinating neuropathy JACOB positive Orthostatic hypertension Restless legs syndrome CVA (cerebral vascular accident) Cognitive disorder Back pain Anxiety Depression Hyperlipidemia Non-melanoma skin cancer Family History Family History Father Myocardial infarction Family/Other Cancer Family/Other Breast cancer Mother Skin cancer Surgical History Surgical History H/O cervical spine surgery History of ear surgery Social History Social History Household Members: Spouse Housing: House Do you presently have visiting nurse or other home services: No Alcohol intake: current Alcohol intake frequency: holidays/special occasions only Alcohol type: beer and hard liquor Patient Tobacco Use Status: Never used Tobacco Smoked in Last 30 Days: No e-Cigarette/Vaping Use: Never Used Use of substances other than those prescribed or required for medical reasons: No Advance Directives: No Advance Directives Information Provided: No Nutrition Risks: No Nutritional Risk service: No Current occupational status: employed 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 Travel History Ebola Risk: Travel/Contact With Anyone From Affected Area/s: No Has Patient Experienced Ebola Symptoms: No Meds Allergies Allergy/AdvReac Type Severity Reaction Status Date / Time No Known Allergies Allergy Verified 02/02/25 17:11 Active Medications: Current Medications Acetaminophen (Acetaminophen 325 Mg Tablet) 650 mg PO Q6H PRN PRN Reason: Pain, Mild 1-3,fever,headache Albuterol/Ipratropium (Albuterol/Iprat 2.5/0.5mg 3 Ml Ampul.Neb) 3 ml INHALE Q4H PRN PRN Reason: Shortness of Breath/Wheezing Calcium Carbonate (Calcium Carbonate 750 Mg Tab.Chew) 750 mg PO Q4H PRN PRN Reason: Heartburn Colchicine (Colchicine 0.6 Mg Tablet) 0.6 mg PO DAILY [facility] Sodium Chloride (Ns) 1,000 mls @ 100 mls/hr IVCONT .Q10H [facility] Last Admin: 02/03/25 03:51 Dose: 100 mls/hr Ibuprofen (Ibuprofen 800 Mg Tablet) 800 mg PO TIDWM [facility] Last Admin: 02/03/25 09:18 Dose: 800 mg Magnesium Hydroxide (Milk Of Magnesia 30 Ml Oral.Susp) 30 ml PO DAILY PRN PRN Reason: Constipation Melatonin (Melatonin 3 Mg Tablet) 6 mg PO BEDTIME PRN PRN Reason: Insomnia Omeprazole (Omeprazole 40 Mg Capsule.Dr) 40 mg PO DAILY@0630 [facility] Last Admin: 02/03/25 09:18 Dose: 40 mg Ondansetron HCl (Ondansetron Hcl 4 Mg/2 Ml Vial) 4 mg IVPUSH Q8H PRN PRN Reason: Nausea and Vomiting Polyethylene Glycol (Polyethylene Glycol 3350 17 Gm Powd.Pack) 17 gm PO DAILY PRN PRN Reason: Constipation Senna (Sennosides 8.6 Mg Tablet) 17.2 mg PO BEDTIME [facility] Sodium Chloride (0.9 % Sodium Chloride Flush 3 Ml Syringe) 3 ml IVFLUSH QSHIFT [facility] Last Admin: 02/03/25 07:40 Dose: Not Given Home Medications ?Medication ?Instructions ?Recorded ?Confirmed ?Last Taken ?Type colchicine 0.6 mg tablet 0.6 mg PO DAILY 01/17/2507/2602/02/25 History lamotrigine 100 mg tablet 100 mg PO DAILY 01/17/2507/2602/02/25 History lamotrigine 200 mg tablet 200 mg PO BID 01/17/2502/0302/02/25 History (Lamictal) melatonin 5 mg disintegrating 5 mg PO BEDTIME PRN inso mnia 01/17/25 02/03/25 Unknown History tablet Physical Exam 2 Vital Signs: Vital Signs: Last Vital Signs Temp 98.7 F 02/03/25 07:51 Pulse 110 H 02/03/25 09:20 Resp 14 02/03/25 09:20 BP 94/64 02/03/25 09:20 Pulse Ox 98 02/03/25 09:20 O2 Del Method Room Air 02/03/25 09:20 BMI result Body Mass Index 24.6 Const: General: comfortable and no acute distress O rientation/consciousness: patient oriented x3 HEENT: Other: Unremarkable Head: Yes normal to inspection Neck: Neck: Yes normal visual inspection Chest: Chest palpation & inspection: normal inspection of the chest Resp: Auscultation: clear to auscultation bilaterally Cardio: Palpation: normal PMI Heart sounds: S1 normal heart sound present, S2 normal heart sound present, no gallops, no murmurs and no rubs GI: Palpation (GI): Soft to palpation Back/Spine/Pelvis: Other: unremarkable Skin: General skin exam: no rashes or lesions noted Neuro: General: patient oriented x3 Extrem: General: Yes normal to inspection Psych: Mental Status: mental status grossly normal Objective Labs and Meds 02/03/25 05:16 02/03/25 05:16 Lab results: Laboratory Results - last 24 hr 02/02/25 02/03/25 02/03/25 17:23 05:15 05:16 WBC 8.9 6.6 RBC 4.24 L 4.12 L Hgb 13.1 L 12.5 L Hct 37.4 L 37.2 L MCV 88.2 90.3 MCH 30.9 30.3 MCHC 35.0 33.6 RDW 13.2 13.1 Plt Count 212 198 MPV 10.3 11.2 Immature Gran % (Auto) 0.2 0.2 Neut % (Auto) 73.3 H 57.8 Lymph % (Auto) 18.6 L 21.2 [place] % (Auto) 7.5 19.7 H Eos % (Auto) 0.3 0.9 Baso % (Auto) 0.1 0.2 Lymph # (Auto) 1.7 1.4 [place] # (Auto) 0.7 1.3 H Eos # (Auto) 0.0 0.1 Baso # (Auto) 0.0 0.0 Abs Immat Gran (auto) 0.02 0.01 Absolute Neuts (auto) 6.5 3.8 Absolute Nucleated RBC 0.000 0.000 Nucleated RBC % (auto) 0.0 0.0 ESR 25 H PT 13.8 H D INR 1.2 H APTT 27.6 Sodium 133 L 138 Potassium 4.2 3.8 Chloride 99 104 Carbon Dioxide 26 26 Anion Gap 12 12 BUN 17 H 15 Creatinine 0.92 0.88 Estim Creat Clear Calc 82.0 85.7 Estimated GFR > 60 > 60 Random Glucose 167 H 113 Lactic Acid 1.0 Calcium 8.7 8.5 Magnesium 2.3 Total Bilirubin 1.0 AST 17 ALT 22 Alkaline Phosphatase 63 Total Creatine Kinase 98 Troponin I High Sens 4.0 D C-Reactive Protein 17.39 H NT-Pro-B Natriuret Pep 231.0 Total Protein 7.0 Albumin 4.3 TSH 1.84 COVID-19 ([facility]) Negative COVID-19 Clin Com See Note Influenza Type A ([facility]) Negative Influenza Type B ([facility]) Negative Influenza A & B Note See Note ECG Interpretation: Initial EKG shows sinus rhythm at 87/Min; inferior and anterolateral T inversions. That is new compared to the prior EKG from last month. In the repeat EKG, probable atrial flutter Assessment and Plan (1) Acute pericardial effusion: Status: Acute (2) Atrial flutter with rapid ventricular response: Status: Acute (3) Pericarditis: Status: Acute Plan In the recent echocardiogram, no evidence of pericardial effusion. However, on the CAT scan moderate pericardial effusion described with small bilateral pleural effusions. Trace perisplenic ascites. Normal thoracic aortic caliber. Heart size within normal limits. No pulmonary embolus. Bedside echocardiogram also confirms the pericardial effusion and there was no overt evidence of tamponade physiology. CRP is quite high and that is suggests inflammatory etiology for the pericardial effusion. We can start him on high-dose NSAIDs and continue the colchicine. These does not help, may need to do steroids but we will hold that for now. Can also check with Interventional Radiology if there is enough fluid to tap or not. Otherwise, with regard to atrial flutter most likely related to the ongoing inflammation. We can try some diltiazem to slow it down and possibly convert. If not, consider amiodarone. We will hold off on anticoagulation at this time due to increased risk of pericardial bleeding. Discussed with the patient and at the bedside. Discussed with . Procedures Date of Service Date of Service: 02/03/25
--- NOTE | 2025-02-03 10:37 | MHC.CM.PN ---
CM met with Patient and his /HCP/Rachel at bedside, in the ED, and addressed IMM with them, providing Patient with the ordinal and a copy will be placed on the chart. 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 Home self care is Patient's goal and CM has initiated and will follow for dc planning. PCP is Dr. Khadra Romo and Patient's car is here vs to transport at dc.
--- NOTE | 2025-02-03 16:39 | HO.NURTONUR ---
Pt 69M with PMH of pericarditis, recent CVA (no deficits), dc'd from hospital 01/19 and initially felt better at home but then started developing fatigue and weakness. Sharp chest pain with deep inspiration. Pt found to have worsening pericarditis. At the beginning of AM shift pt was found to be in new onset afib 130s-140s. Hospitalist and principal technical architect at bedside for emergent US. No tamponade appreciated however given the pericardial effusion cards recommends IR consult. Pt given diltiazem 10mg IV with some improvement of HR. Pt eventually converted back to HR 70s NSR. BP soft. Pt received 1.5L NS bolus. Afebrile. Chest pain resolved. Pt started on amiodarone PO. Resp clear. Cardiac diet ordered. 20gLFA, 20gRAC. NS@100ml/hr. Voids using urinal at bedside. at bedside. Pt alert and oriented. Calm and cooperative.
--- NOTE | 2025-02-04 00:55 | PC.NURSE ---
Pt alert oriented x4 pleasant. Pt reports bilateral lower chest pain, 1 out 0f 10 numeric pain level and reports pain has improved since given scheduled Ibuprofen. Pt repositioned in bed, heated blankets provided and pt resting comfortably. VSS.
[2025-02-04 03:22] VITALS: BP 115/65; PULSE 58; RESP 18; TEMP 36.9; O2SAT 97
[2025-02-04 03:34] LABS: Appearance Urine Clear; Glucose Urine UA Negative (Negative); PH 6.0 (5.0-9.0); Specific Gravity - Urine 1.020 (1.005-1.025)
[2025-02-04 07:15] VITALS: BP 107/61; PULSE 59; RESP 20; TEMP 36.2; O2SAT 98
--- NOTE | 2025-02-04 10:16 | P.PNCA_ITS ---
Subjective Subjective Date of Service: 02/04/25 Interval history: He looks and feels better. Review of Systems Review of Systems Yes all other systems are reviewed and are negative Constitutional: Reports as per HPI and Reports no additional constitutional complaints Eyes: Reports as per HPI and Denies no additional eye complaints Denies system reviewed and no additional complaints, except as documented and Reports as per HPI Cardiovascular: Reports as per HPI, Reports no additional cardiovascular complaints, Denies acrocyanosis, Denies cool extremities, Denies chest pain, Denies leg edema, Denies lightheadedness, Denies palpitations and Denies dyspnea Respiratory: Reports as per HPI, Denies no additional respiratory complaints and Denies dyspnea Gastrointestinal: Reports as per HPI and Denies no additional gastrointestinal complaints Genitourinary: Reports no additional male genitourinary complaints and Reports as per HPI Musculoskeletal: Reports no additional musculoskeletal complaints and Reports as per HPI Skin/Breast: Reports system reviewed and no additional complaints, except as docu Reports system reviewed and no additional complaints, except as documented and Reports as per HPI Psychiatric: Reports no additional psychiatric complaints and Reports as per HPI Endocrine: Reports no additional endocrine complaints, Reports as per HPI and Denies palpitations Hematologic/Lymphatic: Reports no additional hematologic/lymphatic complaints and Reports as per HPI Allergic/Immunologic: Reports no additional allergic/immunologic complaints and Reports as per HPI Physical Exam Const General: comfortable and no acute distress Orientation/consciousness: patient oriented x3 HEENT Other: Unremarkable Head: Yes normal to inspection Neck Neck: Yes normal visual inspection Chest Chest palpation & inspection: normal inspection of the chest Resp Auscultation: clear to auscultation bilaterally Cardio Palpation: normal PMI Heart sounds: S1 normal heart sound present, S2 normal heart sound present, no gallops, no murmurs and no rubs GI Palpation (GI): Soft to palpation Back/Spine/Pelvis Other: unremarkable Skin General skin exam: no rashes or lesions noted Neuro General: patient oriented x3 Extrem General: Yes normal to inspection Psych Mental Status: mental status grossly normal Objective Labs and Meds 02/03/25 05:16 02/03/25 05:16 Lab results: Laboratory Results - last 24 hr 02/04/25 03:23 Urine Color Yellow Urine Appearance Clear Urine pH 6.0 Ur Specific [place] 1.020 Urine Protein Negative Urine Glucose (UA) Negative Urine Ketones Negative Urine Blood Negative Urine Nitrite Negative Ur Leukocyte Esterase Negative Progress Note: A&P Assessment and plan (1) Acute pericardial effusion: Status: Acute Assessment and Plan: No evidence of any tamponade physiology. Likely all related to the pericardial information. Not enough fluid for drainage. Recheck echocardiogram Thursday. (2) Pericarditis: Status: Acute Assessment and Plan: Plan on NSAIDs/colchicine. Hopefully will resolve with the above therapy. If not, consider steroids. (3) Atrial flutter with rapid ventricular response: Status: Acute Assessment and Plan: Back to normal sinus rhythm and last only for a few hours. We can keep him on short-term amiodarone to prevent any recurring atrial flutter/fibrillation while the pericardium is inflamed. Hold off on anticoagulation as the arrhythmias brief and also to avoid any pericardial bleeding. Time Spent With Patient Time: Total time managing care of this patient today ____ minutes. Progress Note: Quality Stroke Does the patient have a stroke diagnosis?: No Reason for No Anti-thrombotic by Day Two: Contraindicated Procedures Date of Service Date of Service: 02/04/25
[2025-02-04 11:42] VITALS: BP 109/64; PULSE 55; RESP 20; TEMP 36.4; O2SAT 97
--- NOTE | 2025-02-04 14:50 | P.PNIM_ITS ---
Subjective Subjective Date of Service: 02/04/25 Interval History: Feeling overall better today. The patient was able to eat and drink well. Urinating and stooling well. Denies chest pain, palpitations, dizziness diaphoresis. Patient's blood pressure has subjectively improved as compared to yesterday. Avoiding further IV calcium channel blockers and beta blockade for the time being until objective evidence of improvement of pericardial effusion Review of Systems Review of Systems: Yes all other systems are reviewed and are negative Physical Exam 2 Exam: Exam: General: A&O x3, oriented to time place person and situation, comfortable, no pain Cardiac: S1, S2 auscultated with no S3/4, no MRG. Well perfused. Distant heart sounds. Respiratory: Normal breath sounds auscultated throughout all lung zones, without wheezing, rales. Normal rate. GI/ : No abdominal pain on palpation, no masses or distentions. MSK: Normal ambulation without pain at bony prominences or musculature Neurological: Normal neurological examination on overview, without obvious CN II-XII abnormalities. Vital Signs: Vital Signs: Last Vital Signs Temp 97.5 F 02/04/25 11:42 Pulse 55 02/04/25 11:42 Resp 20 02/04/25 11:42 BP 109/64 02/04/25 11:42 Pulse Ox 97 02/04/25 11:42 O2 Del Method Room Air 02/04/25 11:42 BMI result Body Mass Index 25.3 Objective Data Active Medications Acetaminophen (Acetaminophen 325 Mg Tablet) 650 mg PO Q6H PRN PRN Reason: Pain, Mild 1-3,fever,headache Albuterol/Ipratropium (Albuterol/Iprat 2.5/0.5mg 3 Ml Ampul.Neb) 3 ml INHALE Q4H PRN PRN Reason: Shortness of Breath/Wheezing Amiodarone HCl (Amiodarone Hcl 200 Mg Tablet) 400 mg PO BID [facility] Last Admin: 02/04/25 07:44 Dose: 400 mg Documented By: SUNNY Aspirin (Aspirin 81 Mg Tab.Chew) 81 mg PO DAILY [facility] Last Admin: 02/04/25 07:44 Dose: 81 mg Documented By: SUNNY Atorvastatin Calcium (Atorvastatin Calcium 80 Mg Tablet) 80 mg PO BEDTIME [facility] Last Admin: 02/03/25 20:25 Dose: 80 mg Documented By: ALEXIA Calcium Carbonate (Calcium Carbonate 750 Mg Tab.Chew) 750 mg PO Q4H PRN PRN Reason: Heartburn Colchicine (Colchicine 0.6 Mg Tablet) 0.6 mg PO DAILY [facility] Last Admin: 02/04/25 07:45 Dose: 0.6 mg Documented By: SUNNY Sodium Chloride (Ns) 1,000 mls @ 100 mls/hr IVCONT .Q10H [facility] Last Admin: 02/04/25 06:26 Dose: 100 mls/hr Documented By: ANTRONALD Ibuprofen (Ibuprofen 800 Mg Tablet) 800 mg PO Q8H [facility] Lamotrigine (Lamotrigine 100 Mg Tablet) 200 mg PO BID [facility] Last Admin: 02/04/25 07:45 Dose: 200 mg Documented By: SUNNY Lamotrigine (Lamotrigine 100 Mg Tablet) 100 mg PO DAILY [facility] Last Admin: 02/04/25 07:45 Dose: 100 mg Documented By: SUNNY Magnesium Hydroxide (Milk Of Magnesia 30 Ml Oral.Susp) 30 ml PO DAILY PRN PRN Reason: Constipation Melatonin (Melatonin 3 Mg Tablet) 6 mg PO BEDTIME PRN PRN Reason: Insomnia Omeprazole (Omeprazole 40 Mg Capsule.Dr) 40 mg PO DAILY@0630 [facility] Last Admin: 02/04/25 06:25 Dose: 40 mg Documented By: JO Ondansetron HCl (Ondansetron Hcl 4 Mg/2 Ml Vial) 4 mg IVPUSH Q8H PRN PRN Reason: Nausea and Vomiting Polyethylene Glycol (Polyethylene Glycol 3350 17 Gm Powd.Pack) 17 gm PO DAILY PRN PRN Reason: Constipation Ropinirole HCl (Ropinirole Hcl 2 Mg Tablet) 2 mg PO BEDTIME [facility] Last Admin: 02/03/25 20:24 Dose: 2 mg Documented By: ALEXIA Senna (Sennosides 8.6 Mg Tablet) 17.2 mg PO BEDTIME [facility] Last Admin: 02/03/25 21:03 Dose: Not Given Documented By: ALEXIA Non-Admin Reason: Patient Refused Sodium Chloride (0.9 % Sodium Chloride Flush 3 Ml Syringe) 3 ml IVFLUSH QSHIFT [facility] Last Admin: 02/04/25 07:46 Dose: Not Given Documented By: HO.ARTING Non-Admin Reason: IV Running Labs 02/03/25 05:16 02/03/25 05:16 Labs: Laboratory Results - last 24 hr 02/04/25 03:23 Urine Color Yellow Urine Appearance Clear Urine pH 6.0 Ur Specific [place] 1.020 Urine Protein Negative Urine Glucose (UA) Negative Urine Ketones Negative Urine Blood Negative Urine Nitrite Negative Ur Leukocyte Esterase Negative Assessment and Plan (1) Hypotension: Status: Acute (2) Cardiac tamponade: Status: Acute (3) Atrial flutter with rapid ventricular response: Status: Acute (4) Pericarditis: Status: Acute (5) Acute pericardial effusion: Status: Acute (6) Chronic pericardial effusion: Status: Acute (7) Hyperlipidemia: Status: Acute (8) JACOB positive: Status: Acute (9) Peripheral demyelinating neuropathy: Status: Acute (10) Numbness and tingling: Status: Acute Plan 69 yo male with PMH pericarditis, recent acute stroke discharge from the hospital 01/19/2025, 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 Patient found to have a moderate pericardial effusion via CTA. Case reviewed with Cardiology in the ED and recommendation made for admission. Acute pericardial effusion Chronic pericarditis A flutter RVR Hypotension Recent diagnosis of pericarditis, with new increase in CRP representing an acute inflammation. The patient is ibuprofen was held on previous admission 2/2 recent CVA Clinical reasoning for holding ibuprofen was 2/2 recent ischemic CVA; to prevent further plaque instability or progression of hemorrhage. Has elevated JACOB titer PLAN - cardiology recommendations greatly appreciated - amiodarone 400 mg b.i.d. - repeat echocardiography during inpatient (limited to evaluate for tamponade physiology) - IVF 100 cc/hour - bolus IVF NaCl 500 cc for hypotension - interventional Radiology was consulted: High-risk procedure, hold for now unless clinical instability presents - ibuprofen 800 mg - continue colchicine Recent Acute CVA Posterior Left frontal Lobe Pt discharged 01/19 Continue Atorvastatin 80 Pt on ASA 81 mgs daily Neuro exam reassuring Persistent weakness and fatigue x5 days Noted low-grade temp 99.4 degrees PT eval recommended Consider neurological consultation if no improvement Neuro exam reassuring, no indication for further diagnostics including MRI of the brain - do not suspect acute stroke HLD Continue atorvastatin at 80 mg as CK is normal LFTs stable RLS Continue Requip CIDP Follow with specialist in the community Depression/Anxiety Continue Lamotrignine Qtc normal limits [employer] [employer] - VTE: SCDs - CODE STATUS: Full code - DIET: Regular Total time managing care of this patient today: 35 minutes. Quality Stroke Does the patient have a stroke diagnosis?: No Reason for No Anti-thrombotic by Day Two: Contraindicated VTE Prior VTE?: No VTE Risk Level:: Medical - moderate - high VTE Device Contraindication: N/A - Device Ordered VTE Drug Contraindication: Treatment Not Indicated
--- NOTE | 2025-02-04 14:55 | MHC.CM.PN ---
Pt. provided HCP form, naming Rachel and Brittney, and MOLST form, full code status. Both were uploaded to EMR and hard copies added to chart.
[2025-02-04 15:41] VITALS: BP 116/68; PULSE 59; RESP 20; TEMP 36.2; O2SAT 99
[2025-02-04 19:59] VITALS: BP 119/68; PULSE 59; RESP 18; TEMP 36.3; O2SAT 97
[2025-02-04 20:45] VITALS: PULSE 67
[2025-02-05] VITALS (7 sets, daily range): BP systolic 101–146; BP diastolic 59–76; PULSE 54–59; RESP 17–18; TEMP 36.2–36.6; O2SAT 96–98
[2025-02-05] MEDS: 0.9 % Sodium Chloride Flush 3 ML SYRINGE IVFLUSH ×3 (08:47→21:41)
[2025-02-05 09:29] LABS: MANUAL DIFF FLAG NO
[2025-02-05 09:36] LABS: Hematocrit 34.3 % (42.0-52.0); Hemoglobin 11.1 g/dl (14.0-18.0); Imm Gran Abs Auto 0.01 X10*3/uL (0.00-0.03); Imm Gran Pct Auto 0.2 % (0.0-0.4); Lymphocytes Absolute Auto 1.1 X10*3/uL (1.2-4.9); Mean Corpuscular HGB Conc 32.4 g/dl (31.0-36.0); Mean Corpuscular Hemoglobin 29.7 pg (27.0-33.0); Mean Corpuscular Volume 91.7 fL (80.0-98.0); NRBC Abs Auto 0.000 X10*3/uL (0.0-0.012); NRBC Pct Auto 0.0 /100WBC (0.0-0.2); Platelet Count 191 X10*3/uL (160-400); Red Blood Count 3.74 X10*6/uL (4.60-5.80); White Blood Count 4.7 X10*3/uL (4.8-10.8)
[2025-02-05 09:59] LABS: Alanine Aminotransferase 29 U/L (0-40); Albumin Level 3.7 g/dL (3.5-5.0); Alkaline Phosphatase 65 U/L (39-117); Anion Gap 10 (12-20); Aspartate Amino Transferase 25 U/L (5-37); Blood Urea Nitrogen 12 mg/dL (9-16); Calcium 8.2 mg/dL (8.4-10.2); Carbon Dioxide 25 mmol/L (22-29); Chloride 109 mmol/L (96-108); Creatinine Clr Calc Pharmacy 92.0; Estimated Glomerular Filt Rate > 60; Potassium 3.8 mmol/L (3.3-5.1); Sodium 140 mmol/L (135-145); Total Protein 6.0 g/dL (6.5-8.0)
--- NOTE | 2025-02-05 10:53 | PM.PNCARD ---
Subjective Subjective Date of Service: 02/05/25 Interval history: He states he is feeling much better. Review of Systems Review of Systems Yes all other systems are reviewed and are negative Constitutional: Reports as per HPI and Reports no additional constitutional complaints Eyes: Reports as per HPI and Denies no additional eye complaints Denies system reviewed and no additional complaints, except as documented and Reports as per HPI Cardiovascular: Reports as per HPI, Reports no additional cardiovascular complaints, Denies acrocyanosis, Denies cool extremities, Denies chest pain, Denies leg edema, Denies lightheadedness, Denies palpitations and Denies dyspnea Respiratory: Reports as per HPI, Denies no additional respiratory complaints and Denies dyspnea Gastrointestinal: Reports as per HPI and Denies no additional gastrointestinal complaints Genitourinary: Reports no additional male genitourinary complaints and Reports as per HPI Musculoskeletal: Reports no additional musculoskeletal complaints and Reports as per HPI Skin/Breast: Reports system reviewed and no additional complaints, except as docu Reports system reviewed and no additional complaints, except as documented and Reports as per HPI Psychiatric: Reports no additional psychiatric complaints and Reports as per HPI Endocrine: Reports no additional endocrine complaints, Reports as per HPI and Denies palpitations Hematologic/Lymphatic: Reports no additional hematologic/lymphatic complaints and Reports as per HPI Allergic/Immunologic: Reports no additional allergic/immunologic complaints and Reports as per HPI Physical Exam Vital Signs: Last Vital Signs Temp 97.5 F 02/05/25 07:33 Pulse 54 02/05/25 07:33 Resp 17 02/05/25 07:33 BP 111/61 02/05/25 07:33 Pulse Ox 97 02/05/25 07:33 O2 Del Method Room Air 02/05/25 07:33 BMI result Body Mass Index 25.3 Const General: comfortable and no acute distress Orientation/consciousness: patient oriented x3 HEENT Other: Unremarkable Head: Yes normal to inspection Neck Neck: Yes normal visual inspection Chest Chest palpation & inspection: normal inspection of the chest Resp Auscultation: clear to auscultation bilaterally Cardio Palpation: normal PMI Heart sounds: S1 normal heart sound present, S2 normal heart sound present, no gallops, no murmurs and no rubs GI Palpation (GI): Soft to palpation Back/Spine/Pelvis Other: unremarkable Skin General skin exam: no rashes or lesions noted Neuro General: patient oriented x3 Extrem General: Yes normal to inspection Psych Mental Status: mental status grossly normal Objective Labs and Meds 02/05/25 09:04 02/05/25 09:04 Lab results: Laboratory Results - last 24 hr 02/05/25 09:04 WBC 4.7 L RBC 3.74 L Hgb 11.1 L Hct 34.3 L MCV 91.7 MCH 29.7 MCHC 32.4 RDW 13.2 Plt Count 191 MPV 11.0 Immature Gran % (Auto) 0.2 Neut % (Auto) 61.9 Lymph % (Auto) 22.5 [place] % (Auto) 13.3 H Eos % (Auto) 1.9 Baso % (Auto) 0.2 Lymph # (Auto) 1.1 L [place] # (Auto) 0.6 Eos # (Auto) 0.1 Baso # (Auto) 0.0 Abs Immat Gran (auto) 0.01 Absolute Neuts (auto) 2.9 Absolute Nucleated RBC 0.000 Nucleated RBC % (auto) 0.0 Sodium 140 Potassium 3.8 Chloride 109 H Carbon Dioxide 25 Anion Gap 10 L BUN 12 Creatinine 0.82 Estim Creat Clear Calc 92.0 Estimated GFR > 60 Random Glucose 101 Calcium 8.2 L Total Bilirubin 0.6 AST 25 ALT 29 Alkaline Phosphatase 65 Total Protein 6.0 L Albumin 3.7 Progress Note: A&P Assessment and plan (1) Acute pericardial effusion: Status: Acute Assessment and Plan: No evidence of any tamponade physiology. Likely all related to the pericardial inflammation. Hopefully, should have improved with the NSAIDs. We will recheck echocardiogram, limited study Thursday. (2) Pericarditis: Status: Acute Assessment and Plan: Plan on NSAIDs/colchicine. Hopefully will resolve with the above therapy. If not, consider steroids. (3) Atrial flutter with rapid ventricular response: Status: Acute Assessment and Plan: Back to normal sinus rhythm and last only for a few hours. Short-term amiodarone for loading dose only should be okay. Most likely because of the pericardial information. Hold off any anticoagulation. Time Spent With Patient Time: Total time managing care of this patient today ____ minutes. Progress Note: Quality Stroke Does the patient have a stroke diagnosis?: No Reason for No Anti-thrombotic by Day Two: Contraindicated Procedures Date of Service Date of Service: 02/05/25
--- NOTE | 2025-02-05 11:21 | P.PNIM_ITS ---
Subjective Subjective Date of Service: 02/05/25 Interval History: Feels well today. Patient and the family were updated by bedside. No new complaints overall, except for persistent dizziness. This has improved and is relatively subsided compared to yesterday Review of Systems Review of Systems: Yes all other systems are reviewed and are negative Physical Exam 2 Exam: Exam: General: A&O x3, oriented to time place person and situation, comfortable, no pain Cardiac: S1, S2 auscultated with no S3/4, no MRG. Well perfused. Distant heart sounds. Respiratory: Normal breath sounds auscultated throughout all lung zones, without wheezing, rales. Normal rate. GI/ : No abdominal pain on palpation, no masses or distentions. MSK: Normal ambulation without pain at bony prominences or musculature Neurological: Normal neurological examination on overview, without obvious CN II-XII abnormalities. Vital Signs: Vital Signs: Last Vital Signs Temp 97.5 F 02/05/25 07:33 Pulse 54 02/05/25 07:33 Resp 17 02/05/25 07:33 BP 111/61 02/05/25 07:33 Pulse Ox 97 02/05/25 07:33 O2 Del Method Room Air 02/05/25 07:33 BMI result Body Mass Index 25.3 Objective Data Active Medications Acetaminophen (Acetaminophen 325 Mg Tablet) 650 mg PO Q6H PRN PRN Reason: Pain, Mild 1-3,fever,headache Albuterol/Ipratropium (Albuterol/Iprat 2.5/0.5mg 3 Ml Ampul.Neb) 3 ml INHALE Q4H PRN PRN Reason: Shortness of Breath/Wheezing Amiodarone HCl (Amiodarone Hcl 200 Mg Tablet) 400 mg PO BID [facility] Last Admin: 02/05/25 08:44 Dose: 400 mg Documented By: FLORIN Aspirin (Aspirin 81 Mg Tab.Chew) 81 mg PO DAILY [facility] Last Admin: 02/05/25 08:46 Dose: 81 mg Documented By: FLORIN Atorvastatin Calcium (Atorvastatin Calcium 80 Mg Tablet) 80 mg PO BEDTIME [facility] Last Admin: 02/04/25 20:42 Dose: 80 mg Documented By: ALEXIA Calcium Carbonate (Calcium Carbonate 750 Mg Tab.Chew) 750 mg PO Q4H PRN PRN Reason: Heartburn Colchicine (Colchicine 0.6 Mg Tablet) 0.6 mg PO DAILY [facility] Last Admin: 02/05/25 08:46 Dose: 0.6 mg Documented By: FLORIN Ibuprofen (Ibuprofen 800 Mg Tablet) 800 mg PO Q8H [facility] Last Admin: 02/05/25 08:45 Dose: 800 mg Documented By: FLORIN Lamotrigine (Lamotrigine 100 Mg Tablet) 200 mg PO BID [facility] Last Admin: 02/05/25 08:45 Dose: 200 mg Documented By: FLORIN Lamotrigine (Lamotrigine 100 Mg Tablet) 100 mg PO DAILY [facility] Last Admin: 02/05/25 08:45 Dose: 100 mg Documented By: FLORIN Magnesium Hydroxide (Milk Of Magnesia 30 Ml Oral.Susp) 30 ml PO DAILY PRN PRN Reason: Constipation Melatonin (Melatonin 3 Mg Tablet) 6 mg PO BEDTIME PRN PRN Reason: Insomnia Omeprazole (Omeprazole 40 Mg Capsule.Dr) 40 mg PO DAILY@0630 [facility] Last Admin: 02/05/25 05:48 Dose: 40 mg Documented By: ZOË Ondansetron HCl (Ondansetron Hcl 4 Mg/2 Ml Vial) 4 mg IVPUSH Q8H PRN PRN Reason: Nausea and Vomiting Polyethylene Glycol (Polyethylene Glycol 3350 17 Gm Powd.Pack) 17 gm PO DAILY PRN PRN Reason: Constipation Ropinirole HCl (Ropinirole Hcl 2 Mg Tablet) 2 mg PO BEDTIME [facility] Last Admin: 02/04/25 20:43 Dose: 2 mg Documented By: ALEXIA Senna (Sennosides 8.6 Mg Tablet) 17.2 mg PO BEDTIME [facility] Last Admin: 02/04/25 20:43 Dose: Not Given Documented By: ALEXIA Non-Admin Reason: Patient Refused Sodium Chloride (0.9 % Sodium Chloride Flush 3 Ml Syringe) 3 ml IVFLUSH QSHIFT [facility] Last Admin: 02/05/25 08:47 Dose: 3 ml Documented By: FLORIN Labs 02/05/25 09:04 02/05/25 09:04 Labs: Laboratory Results - last 24 hr 02/05/25 09:04 MCV 91.7 MCH 29.7 MCHC 32.4 RDW 13.2 Plt Count 191 MPV 11.0 Immature Gran % (Auto) 0.2 Neut % (Auto) 61.9 Lymph % (Auto) 22.5 [place] % (Auto) 13.3 H Eos % (Auto) 1.9 Baso % (Auto) 0.2 Lymph # (Auto) 1.1 L [place] # (Auto) 0.6 Eos # (Auto) 0.1 Baso # (Auto) 0.0 Abs Immat Gran (auto) 0.01 Absolute Neuts (auto) 2.9 Absolute Nucleated RBC 0.000 Nucleated RBC % (auto) 0.0 Anion Gap 10 L Estim Creat Clear Calc 92.0 Estimated GFR > 60 Random Glucose 101 Calcium 8.2 L Total Bilirubin 0.6 AST 25 ALT 29 Alkaline Phosphatase 65 Total Protein 6.0 L Albumin 3.7 Assessment and Plan (1) Hypotension: Status: Acute (2) Cardiac tamponade: Status: Acute (3) Atrial flutter with rapid ventricular response: Status: Acute (4) Pericarditis: Status: Acute (5) Acute pericardial effusion: Status: Acute (6) Hyperlipidemia: Status: Acute (7) Chronic pericardial effusion: Status: Acute (8) Depression: Status: Acute (9) Anxiety: Status: Acute (10) JACOB positive: Status: Acute (11) Peripheral demyelinating neuropathy: Status: Acute (12) Numbness and tingling: Status: Acute Plan 69 yo male with PMH pericarditis, recent acute stroke discharge from the hospital 01/19/2025, 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 Patient found to have a moderate pericardial effusion via CTA. Case reviewed with Cardiology in the ED and recommendation made for admission. Acute pericardial effusion Chronic pericarditis A flutter RVR Hypotension Recent diagnosis of pericarditis, with new increase in CRP representing an acute inflammation. The patient is ibuprofen was held on previous admission 2/2 recent CVA Clinical reasoning for holding ibuprofen was 2/2 recent ischemic CVA; to prevent further plaque instability or progression of hemorrhage. Has elevated JACOB titer PLAN - cardiology recommendations greatly appreciated - amiodarone 400 mg b.i.d. - repeat echocardiography during inpatient (limited to evaluate for tamponade physiology) - IVF 100 cc/hour - bolus IVF NaCl 500 cc for hypotension - interventional Radiology was consulted: High-risk procedure, hold for now unless clinical instability presents - ibuprofen 800 mg q8hrly - continue colchicine Recent Acute CVA Posterior Left frontal Lobe Pt discharged 01/19 Continue Atorvastatin 80 Pt on ASA 81 mgs daily Neuro exam reassuring Persistent weakness and fatigue x5 days Noted low-grade temp 99.4 degrees PT eval recommended Consider neurological consultation if no improvement Neuro exam reassuring, no indication for further diagnostics including MRI of the brain - do not suspect acute stroke HLD Continue atorvastatin at 80 mg as CK is normal LFTs stable RLS Continue Requip CIDP Follow with specialist in the community Depression/Anxiety Continue Lamotrignine Qtc normal limits [employer] - VTE: SCDs - CODE STATUS: Full code - DIET: Regular Total time managing care of this patient today: 35 minutes. Quality Stroke Does the patient have a stroke diagnosis?: No Reason for No Anti-thrombotic by Day Two: Contraindicated VTE Prior VTE?: No VTE Risk Level:: Medical - moderate - high VTE Device Contraindication: N/A - Device Ordered VTE Drug Contraindication: Treatment Not Indicated
[2025-02-06 03:21] VITALS: BP 115/55; PULSE 51; RESP 18; TEMP 36.6; O2SAT 94
[2025-02-06 06:53] LABS: MANUAL DIFF FLAG NO
[2025-02-06 06:55] LABS: Hematocrit 30.5 % (42.0-52.0); Hemoglobin 10.5 g/dl (14.0-18.0); Imm Gran Abs Auto 0.01 X10*3/uL (0.00-0.03); Imm Gran Pct Auto 0.2 % (0.0-0.4); Lymphocytes Absolute Auto 1.1 X10*3/uL (1.2-4.9); Mean Corpuscular HGB Conc 34.4 g/dl (31.0-36.0); Mean Corpuscular Hemoglobin 30.8 pg (27.0-33.0); Mean Corpuscular Volume 89.4 fL (80.0-98.0); NRBC Abs Auto 0.000 X10*3/uL (0.0-0.012); NRBC Pct Auto 0.0 /100WBC (0.0-0.2); Platelet Count 195 X10*3/uL (160-400); Red Blood Count 3.41 X10*6/uL (4.60-5.80); White Blood Count 4.5 X10*3/uL (4.8-10.8)
--- NOTE | 2025-02-06 07:00 | CA_ITS ---
Transthoracic Echocardiogram Patient (Last, First, Middle): Chilo Lee, Gender: Male Date of : 1955 Age: 69 Procedure Date: 02/06/2025 Procedure Type: Transthoracic Echocardiogram Location[place] [facility] [place] Height: 182.88 cm Weight: 84.37 kg BSA: 2.07 m2 Heart Rate: 51 bpm BP: 130 / 64 mmHg Equipment [employer]: SB Referring MD: Fani Turpin MD Regulatory Consultant: Don Putnam MD Symptoms: Interval evaluation of pericardial effusion Study Quality: Adequate/limited ordered ECG Rhythm: Bradycardia Conclusions: - [id number] pericardial effusion without tamponade Findings Left Ventricle Normal left ventricular size, thickness, and systolic function. Pericardium/Pleural hroul-[id number]-fuukrnjg pericardial effusion noted, circumferential without clear evidence of tamponade Prior Study Comparison No significant change compared to prior study dated: 02/03/2025. Measurements 2D Linear Measurements IVSd: 0.79 0.6-0.9/0.6-1.0 cm LVIDd: 5.07 3.9-5.3/4.2-5.9 cm LVIDd Index: 2.45 2.4-3.2/2.2-3.1 cm/m2 LVIDs: 3.24 2.0-3.6 cm LVPWd: 0.88 0.7-1.1 cm LV Mass: 182.61 67-162/88-224 g LV Mass Index: 88.22 43-95/49-115 g/m2 Mitral Valve MV Pk E: 0.89 MV PK A: 0.56 MV Decel Time: 182.00 E/A: 1.60 E'Lateral: 8.16 E'Medial: 8.27 E/E' Med: 10.80 E/E' Lat: 10.90 PHT: 53.00 MVA PHT: 4.15 Decel [place]: 4.90 Diastolic Function MV Pk E: 0.89 MV Pk A: 0.56 E/A: 1.60 E'Medial: 8.27 E/E' Med: 10.80 E' Laterial: 8.16 E/E' Lat: 10.90 Tricuspid Valve RA Press: 15.00 Updated in Other Vendor System with Status of Final Don Putnam MD electronically signed on 02/06/2025 11:48:29 AM with status of Final
[2025-02-06 07:12] LABS: Alanine Aminotransferase 25 U/L (0-40); Albumin Level 3.6 g/dL (3.5-5.0); Alkaline Phosphatase 65 U/L (39-117); Anion Gap 10 (12-20); Aspartate Amino Transferase 21 U/L (5-37); Blood Urea Nitrogen 10 mg/dL (9-16); Calcium 8.2 mg/dL (8.4-10.2); Carbon Dioxide 24 mmol/L (22-29); Chloride 111 mmol/L (96-108); Creatinine Clr Calc Pharmacy 87.7; Estimated Glomerular Filt Rate > 60; Potassium 3.9 mmol/L (3.3-5.1); Sodium 141 mmol/L (135-145); Total Protein 5.9 g/dL (6.5-8.0)
[2025-02-06 07:51] VITALS: BP 130/64; PULSE 50; RESP 16; TEMP 36.4; O2SAT 97
[2025-02-06] MEDS: 0.9 % Sodium Chloride Flush 3 ML SYRINGE IVFLUSH ×2 (07:58→15:04)
[2025-02-06 11:42] VITALS: BP 121/61; PULSE 54; RESP 16; TEMP 36.4; O2SAT 96
--- NOTE | 2025-02-06 12:30 | P.PNCA_ITS ---
Subjective Subjective Date of Service: 02/06/25 Principal diagnosis: Pericarditis, atrial flutter transient Interval history: No overnight arrhythmias. Patient says chest pain is much improved although still had chest pain when he laid on the right side and with very deep inspiration still gets some discomfort. Tolerating his medications well. He does mentioned that last month he was admitted to the ED with transient right arm weakness and subsequent MRI findings consistent with left frontotemporal ischemic area. Review of Systems Constitutional: Reports no additional constitutional complaints Cardiovascular: Reports chest pain at rest (With position), Denies leg edema, Denies lightheadedness, Denies Loss of Consciousness and Denies palpitations Respiratory: Reports pain on inspiration Gastrointestinal: Reports no additional gastrointestinal complaints Genitourinary: Reports no additional male genitourinary complaints Musculoskeletal: Reports no additional musculoskeletal complaints Endocrine: Denies palpitations Physical Exam Vital Signs: Last Vital Signs Temp 97.6 F 02/06/25 11:42 Pulse 54 02/06/25 11:42 Resp 16 02/06/25 11:42 BP 121/61 02/06/25 11:42 Pulse Ox 96 02/06/25 11:42 O2 Del Method Room Air 02/06/25 11:42 BMI result Body Mass Index 25.3 Const General: comfortable and no acute distress Orientation/consciousness: patient oriented x3 HEENT Other: Unremarkable Head: Yes normal to inspection Neck Neck: Yes normal visual inspection Chest Chest palpation & inspection: normal inspection of the chest Resp Auscultation: clear to auscultation bilaterally Cardio Palpation: normal PMI Heart sounds: S1 normal heart sound present, S2 normal heart sound present, no gallops, no murmurs and no rubs GI Palpation (GI): Soft to palpation Back/Spine/Pelvis Other: unremarkable Skin General skin exam: no rashes or lesions noted Neuro General: patient oriented x3 Extrem General: Yes normal to inspection Psych Mental Status: mental status grossly normal Objective Labs and Meds 02/06/25 06:24 02/06/25 06:24 Lab results: Laboratory Results - last 24 hr 02/06/25 06:24 WBC 4.5 L RBC 3.41 L Hgb 10.5 L Hct 30.5 L MCV 89.4 MCH 30.8 MCHC 34.4 RDW 13.0 Plt Count 195 MPV 11.0 Immature Gran % (Auto) 0.2 Neut % (Auto) 56.0 Lymph % (Auto) 24.7 [place] % (Auto) 16.5 H Eos % (Auto) 2.4 Baso % (Auto) 0.2 Lymph # (Auto) 1.1 L [place] # (Auto) 0.7 Eos # (Auto) 0.1 Baso # (Auto) 0.0 Abs Immat Gran (auto) 0.01 Absolute Neuts (auto) 2.5 Absolute Nucleated RBC 0.000 Nucleated RBC % (auto) 0.0 Sodium 141 Potassium 3.9 Chloride 111 H Carbon Dioxide 24 Anion Gap 10 L BUN 10 Creatinine 0.86 Estim Creat Clear Calc 87.7 Estimated GFR > 60 Random Glucose 99 Calcium 8.2 L Total Bilirubin 0.5 AST 21 ALT 25 Alkaline Phosphatase 65 Total Protein 5.9 L Albumin 3.6 Progress Note: A&P Assessment and plan (1) Pericarditis: Status: Acute Assessment and Plan: Acute pericarditis with a [id number] pericardial effusion which has remained stable. Continue aggressive medical therapy including nonsteroidals for 2 weeks at high dose, ibuprofen 800 mg t.i.d. or indomethacin 50 mg b.i.d. with GI prophylaxis in addition to colchicine 0.6 mg b.i.d. for 6 months. Will follow up with limited echocardiogram and inflammatory markers in near future. (2) Atrial flutter with rapid ventricular response: Status: Acute Assessment and Plan: Atrial flutter noted recently incidentally. Patient has no symptoms. About a month ago he was admitted after his 1st bout with pericarditis with ischemic event. This raises concern for possibility of atrial flutter related ischemic event. Would start on Eliquis 5 mg b.i.d.. Follow-up limited echocardiogram as above. Follow-up Holter monitor in 1 week time. Would hold off on amiodarone therapy. Will follow up in the clinic in 2 weeks time, sooner PRN. Thank you for allowing me to partake in his care Time Spent With Patient Time: Total time managing care of this patient today ____ minutes. Progress Note: Quality Stroke Does the patient have a stroke diagnosis?: No Reason for No Anti-thrombotic by Day Two: Contraindicated Procedures Date of Service Date of Service: 02/06/25
--- NOTE | 2025-02-06 13:28 | P.DS_ITS ---
DS: Providers Provider Date of Service: 02/06/25 Date of admission: 02/03/25 01:09 Date of discharge: 02/06/25 Primary care physician: Khadra Romo MD Consults: 02/03/25 02:50 Consult to Cardiology Routine Consulting Provider: [facility] Reason for consultation: new moderate pericardial effusion Has provider been notified: No DS: Diagnosis Discharge Diagnosis (1) Pericarditis: Status: Acute (2) Atrial flutter with rapid ventricular response: Status: Acute (3) Recent cerebrovascular accident: Status: Acute DS: Summary Hospital Course Hospital Course: From the history and physical by the admitting hospitalist, Keanu Andrade, 02/03/25: Pt is a 69 yo male with PMH pericarditis, recent acute stroke discharge from the hospital 01/19/2025, 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 Patient was diagnosed with an acute CVA and pericarditis previous admission from 01/14 and was discharged on 01/19. Patient was started on aspirin 81 mg daily and his pravastatin was changed to atorvastatin 80 mg at bedtime. Patient was not started on Plavix. Patient also currently complaining of internal chest pain, chest hurting most when laughing or deep breathing. Patient states he just does not feel right and has not again for the last 5 days. Patient was actually scared to be home alone while his was at work during the day. Patient does have CIDP in continues to work with neurologist in the [place] area. This can result in spontaneous falls and patient denies any recent falls or injuries. Patient currently denying any chest pain at rest, shortness of breath at rest or with exertion, dysphagia, abdominal pain, nausea or vomiting. Patient is not having any issues with diarrhea and was experiencing some mild constipation and finally had a bowel movement earlier today. Patient states he is very weak in the lower extremities and denies any myalgias. Patient stated upon arrival to the ED, patient barely made it into the entrance of the ED with walking. Patient is not using an assistive device currently. Workup in the ED included chest x-ray which was negative for acute findings and a chest CTA to rule out PE as patient indicated he was experienced shortness br eath to the emergency room provider. CTA negative for PE. Small bilateral pleural effusions with a moderate pericardial effusion and trace perisplenic ascites of uncertain etiology were noted. No evidence of pneumonia noted. Patient has no leukocytosis but a very 0 fever 99.4 max. CRP and sed rate both elevated. UA pending. Patient's COVID, RSV and flu testing were all negative. EKG normal sinus rhythm with no diffuse ST changes. Patient currently hemodynamically stable without evidence of tamponade. Troponins negative and BNP 231. Patient's total CK level was normal at 98. Magnesium 2.3 TSH also normal at 1.84. 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 Patient found to have a moderate pericardial effusion via CTA. Case reviewed with Cardiology in the ED and recommendation made for admission. He was admitted to the telemetry unit with Cardiology consultation. TTE on admission and discharge with small-moderate circumferential effusion without tamponade. Brief episode of atrial flutter with rapid ventricular response on admission and he was started on amiodarone but per Cardiology, not continued on discharge. To repeat echocardiogram, inflammatory markers, and obtain Holter monitor in 1-2 weeks with close Cardiology follow-up. Started on apixaban given the atrial flutter with recent stroke. Symptoms improved markedly with near-resolution ofdyspnea and chest pain and resolution of hypotension. Time Attestation Discharge Coordination Time (in mins): 45 Quality: Safe Use of Opioids Does Pt have an Active Cancer Diagnosis on the Problem List?: No Quality: Stroke Does the patient have a stroke diagnosis?: No Physical Exam Vital Signs: Vital Signs: Last Vital Signs Temp 97.6 F 02/06/25 11:42 Pulse 54 02/06/25 11:42 Resp 16 02/06/25 11:42 BP 121/61 02/06/25 11:42 Pulse Ox 96 02/06/25 11:42 O2 Del Method Room Air 02/06/25 11:42 BMI result Body Mass Index 25.3 Gen: in no acute distress HEENT: sclera anicteric, moist mucus membranes Neck: supple Lungs: clear to auscultation bilaterally Heart: regular rate and rhythm, no murmurs Abd: soft, non-tender, non-distended Ext: no edema Skin: warm/well-perfused Neuro: alert and oriented x3, no focal findings Psych: appropriate affect DS: Data Data Completed and Pending Completed studies during hospitalization [Text1]: Laboratory Results WBC 4.5 X10*3/uL (4.8-10.8) L 02/06/25 06:24 RBC 3.41 X10*6/uL (4.60-5.80) L 02/06/25 06:24 Hgb 10.5 g/dl (14.0-18.0) L 02/06/25 06:24 Hct 30.5 % (42.0-52.0) L 02/06/25 06:24 MCV 89.4 fL (80.0-98.0) 02/06/25 06:24 MCH 30.8 pg (27.0-33.0) 02/06/25 06:24 MCHC 34.4 g/dl (31.0-36.0) 02/06/25 06:24 RDW 13.0 % (11.0-16.0) 02/06/25 06:24 Plt Count 195 X10*3/uL (160-400) 02/06/25 06:24 MPV 11.0 fL (9.4-12.4) 02/06/25 06:24 Immature Gran % (Auto) 0.2 % (0.0-0.4) 02/06/25 06:24 Neut % (Auto) 56.0 % (45-73) 02/06/25 06:24 Lymph % (Auto) 24.7 % (20-40) 02/06/25 06:24 [place] % (Auto) 16.5 % (2-11) H 02/06/25 06:24 Eos % (Auto) 2.4 % (0-4) 02/06/25 06:24 Baso % (Auto) 0.2 % (0-2) 02/06/25 06:24 Lymph # (Auto) 1.1 X10*3/uL (1.2-4.9) L 02/06/25 06:24 [place] # (Auto) 0.7 X10*3/uL (0.1-1.2) 02/06/25 06:24 Eos # (Auto) 0.1 X10*3/uL (0.0-0.4) 02/06/25 06:24 Baso # (Auto) 0.0 X10*3/uL (0.0-0.2) 02/06/25 06:24 Abs Immat Gran (auto) 0.01 X10*3/uL (0.00-0.03) 02/06/25 06:24 Absolute Neuts (auto) 2.5 x10*3/uL (2.0-8.3) 02/06/25 06:24 Absolute Nucleated RBC 0.000 X10*3/uL (0.0-0.012) 02/06/25 06:24 Nucleated RBC % (auto) 0.0 /100WBC (0.0-0.2) 02/06/25 06:24 ESR 25 MM/HR (0-15) H 02/02/25 17:23 PT 13.8 SEC (10.9-12.4) H D 02/03/25 05:16 INR 1.2 (0.9-1.1) H 02/03/25 05:16 APTT 27.6 SEC (26.7-34.1) 02/03/25 05:16 Sodium 141 mmol/L (135-145) 02/06/25 06:24 Potassium 3.9 mmol/L (3.3-5.1) 02/06/25 06:24 Chloride 111 mmol/L (96-108) H 02/06/25 06:24 Carbon Dioxide 24 mmol/L (22-29) 02/06/25 06:24 Anion Gap 10 (12-20) L 02/06/25 06:24 BUN 10 mg/dL (9-16) 02/06/25 06:24 Creatinine 0.86 mg/dL (0.5-1.4) 02/06/25 06:24 Estim Creat Clear Calc 87.7 02/06/25 06:24 Estimated GFR > 60 02/06/25 06:24 Random Glucose 99 mg/dL (60-115) 02/06/25 06:24 Lactic Acid 1.0 mmol/L (0.5-2.0) 02/03/25 05:15 Calcium 8.2 mg/dL (8.4-10.2) L 02/06/25 06:24 Magnesium 2.3 mg/dL (1.6-2.6) 02/02/25 17:23 Total Bilirubin 0.5 mg/dL (0.0-1.0) 02/06/25 06:24 AST 21 U/L (5-37) 02/06/25 06:24 ALT 25 U/L (0-40) 02/06/25 06:24 Alkaline Phosphatase 65 U/L (39-117) 02/06/25 06:24 Total Creatine Kinase 98 U/L (38-174) 02/02/25 17:23 Troponin I High Sens 4.0 ng/L (<3.5-35.0) D 02/02/25 17:23 C-Reactive Protein 17.39 mg/dL (< or = 0.50) H 02/02/25 17:23 NT-Pro-B Natriuret Pep 231.0 pg/mL (<300) 02/02/25 17:23 Total Protein 5.9 g/dL (6.5-8.0) L 02/06/25 06:24 Albumin 3.6 g/dL (3.5-5.0) 02/06/25 06:24 TSH 1.84 uIU/mL (0.32-4.0) 02/02/25 17:23 Urine Color Yellow 02/04/25 03:23 Urine Appearance Clear 02/04/25 03:23 Urine pH 6.0 (5.0-9.0) 02/04/25 03:23 Ur Specific [place] 1.020 (1.005-1.025) 02/04/25 03:23 Urine Protein Negative mg/dL (Neg-Trace) 02/04/25 03:23 Urine Glucose (UA) Negative mg/dL (Negative) 02/04/25 03:23 Urine Ketones Negative mg/dL (Negative) 02/04/25 03:23 Urine Blood Negative (Negative) 02/04/25 03:23 Urine Nitrite Negative (Negative) 02/04/25 03:23 Ur Leukocyte Esterase Negative (Negative) 02/04/25 03:23 COVID-19 ([place]H) Negative (Negative) 02/02/25 17:23 COVID-19 Clin Com See Note 02/02/25 17:23 Influenza Type A ([place]) Negative (Negative) 02/02/25 17:23 Influenza Type B ([place]) Negative (Negative) 02/02/25 17:23 Influenza A & B Note See Note 02/02/25 17:23 Discharge Plan Discharge Anticipated Discharge Date/Time: 02/06/25 13:21 Patient Disposition: Home, Self-Care Discharge Diagnosis: pericarditis atrial fibrillation, recent stroke Referrals: Khadra Romo MD [Primary Care Provider, Family Practice] - 1 Week Michael Osorio MD [Physician, Cardiology] - 2 Weeks Discharge Medications: New omeprazole 40 mg Capsule,Delayed Release(Dr/Ec) 40 mg PO DAILY@0630 Qty: 30 0RF apixaban 5 mg tablet 5 mg PO BID Qty: 60 0RF ibuprofen 800 mg tablet 800 mg PO TID Qty: 42 0RF Continued lamotrigine [Lamictal] 200 mg tablet 200 mg PO BID lamotrigine 100 mg tablet 100 mg PO DAILY melatonin 5 mg tablet,disintegrating 5 mg PO BEDTIME PRN (Reason: insomnia) colchicine 0.6 mg tablet 0.6 mg PO DAILY atorvastatin 80 mg Tablet 80 mg PO BEDTIME 30 Days Qty: 30 0RF ropinirole 2 mg tablet 2 mg PO BEDTIME Discontinued aspirin 81 mg Tablet,Chewable 81 mg PO DAILY 30 Days Qty: 30 0RF Discharge Orders: Discharge Order (Routine); Ordered 02/06/25 Ordered By: Sole Gabriel Diet: Advance to usual diet Activity on Discharge: As tolerated Stand Alone Forms: Patient Portal Discharge page Print Language: Indonesian Other Ambulatory Orders: C Reactive Protein (Routine) Timeframe: 1 Week Facility: [facility] - Location: Laboratory Ordered By: Sole Gabriel Erythrocyte Sedimentation Rate (Routine) Timeframe: 1 Week Facility: [facility] - Location: Laboratory Ordered By: Sole Gabriel Care Plan Goals: cardiac health, stroke prevention Health Concerns: pericarditis atrial fibrillation, recent stroke Plan of Treatment: colchicine 0.6 mg daily for 6 months ibuprofen 800 mg 3x a day for 2 weeks omeprazole 40 mg daily for GI protection apixaban [Eliquis] 5 mg twice daily see Cardiology in 2 weeks; to arrange Holter monitor, repeat echocardiogram recheck ESR and CRP in 1 week Please follow up with your primary care doctor within 1 week. Return to the hospital if you experience recurrent or worsening symptoms. Assessment: See Discharge Summary.
--- NOTE | 2025-02-06 14:32 | MHC.CM.PN ---
IMM 02/06/25 DELIVERED TO BEDSIDE, PT MEDICALLY CLEARED FOR DC HOME SELF-CARE, PT'S STARTED ON ELIQUIS AND HAS BEEN PROVIDED AN ELIQUIS 30DAY COUPON CARD, PT REPORTS HIS WILL TRANSPORT HIM HOME.
--- NOTE | 2025-02-06 14:45 | MHC.CM.PN ---
EMR REVIEWED, PT W/NSTEMI, P.T. RECOMMENDING STR, PREFERRED SNF [facility] SENT UPDATED CLINICAL/PT EVAL VIA [facility] AND AWARE PT WILL LIKELY BE READY FOR DC TOMORROW 02/07, CM WILL CONT TO FOLLOW DC NEEDS.
[2025-02-13 14:13] LABS: Anti Nuclear Antibody Pattern Nuclear, Homogeneous; Anti Nuclear Antibody Screen POSITIVE (NEGATIVE); Anti Nuclear Antibody Titer 1:80 titer
== END 2025-02-06 15:37 | disposition home or self-care (01) | DRG 315 ==
LOC: HO.ED 02-03 01:12 → HO.EDOVER 02-03 01:12 → HO.IMC 02-03 16:06
PROVIDERS: Hospitalist; Nurse Practitioner Family; Physician Assistant; Admitting Provider Internal Medicine; Emergency Provider Emergency Medicine Emergency Medical Services; PCP Family Medicine; Visit Provider Family Medicine
DX: I30.9 Acute pericarditis, unspecified (principal); G61.81 Chronic inflammatory demyelinating polyneuritis; I48.92 Unspecified atrial flutter; G25.81 Restless legs syndrome; I31.9 Disease of pericardium, unspecified; Z20.822 Contact with and (suspected) exposure to COVID-19; F41.9 Anxiety disorder, unspecified; F32.A Depression, unspecified; I95.2 Hypotension due to drugs; T46.1X5A Adverse effect of calcium-channel blockers, initial encounter; Z86.73 Personal history of transient ischemic attack (TIA), and cerebral infarction without residual deficits; Z79.899 Other long term (current) drug therapy
CPT/HCPCS: 36415; 71045; 71275; 80048; 80053; 81003; 82550; 83605; 83735; 83880; 84443; 84484; 85025; 85610; 85652; 85730; 86038; 86039; 86140; 87502; 87635; 93005; 93308; 99285; J1163; Q9967

== ENCOUNTER → 2025-02-02 17:10 | Outpatient (BNV) | payer MEDICARE, SELFPAY | PROVIDERS: Emergency Provider Emergency Medicine Emergency Medical Services; PCP Family Medicine; Visit Provider Radiology Diagnostic Radiology | DX: J90 Pleural effusion, not elsewhere classified (principal); I31.39 Other pericardial effusion (noninflammatory) | CPT/HCPCS: 71045; 71275 ==

== ENCOUNTER → 2025-02-02 17:10 | Outpatient (BNV) | payer MEDICARE, SELFPAY | PROVIDERS: Admitting Provider Internal Medicine; Emergency Provider Emergency Medicine Emergency Medical Services; PCP Family Medicine; Visit Provider Internal Medicine | DX: R94.31 Abnormal electrocardiogram [ECG] [EKG] (principal); R00.0 Tachycardia, unspecified | CPT/HCPCS: 93010 ==

== ENCOUNTER 2025-02-03 01:09 | Outpatient (BNV) | payer MEDICARE, SELFPAY | END 2025-02-06 07:00 | PROVIDERS: Admitting Provider Internal Medicine; Emergency Provider Emergency Medicine Emergency Medical Services; PCP Family Medicine; Visit Provider Internal Medicine Cardiovascular Disease | DX: I31.39 Other pericardial effusion (noninflammatory) (principal) | CPT/HCPCS: 93308 ==

== ENCOUNTER → 2025-02-03 01:09 | Outpatient (BNV) | payer MEDICARE, SELFPAY | PROVIDERS: Admitting Provider Internal Medicine; Emergency Provider Emergency Medicine Emergency Medical Services; PCP Family Medicine; Visit Provider Hospitalist | DX: I31.39 Other pericardial effusion (noninflammatory) (principal); I48.92 Unspecified atrial flutter; Z86.73 Personal history of transient ischemic attack (TIA), and cerebral infarction without residual deficits | CPT/HCPCS: 99239 ==

== ENCOUNTER → 2025-02-03 01:09 | Outpatient (BNV) | payer MEDICARE, SELFPAY | PROVIDERS: Admitting Provider Internal Medicine; Emergency Provider Emergency Medicine Emergency Medical Services; PCP Family Medicine; Visit Provider Internal Medicine | DX: I30.9 Acute pericarditis, unspecified (principal); I48.92 Unspecified atrial flutter; I31.39 Other pericardial effusion (noninflammatory) | CPT/HCPCS: 93308; 99223; 99233 ==

== ENCOUNTER 2025-02-09 20:35 | Emergency (ER) | payer MEDICARE, SELFPAY ==
--- NOTE | ~2025-02-09 | XR_ITS ---
CLINICAL HISTORY: fever 2 view chest x-ray Comparison: CR - XR CHEST 1V - 02/02/25 18:09 EDT Findings: Small bilateral pleural effusions have developed, slightly larger on the left. Small patchy opacity left lower lobe posteriorly. Cardiomegaly. No acute fracture. IMPRESSION: 1. New small bilateral pleural effusions. 2. Suspected pneumonia in the left lower lobe. This document has been electronically signed by: Navin Hagan MD on 02/10/2025 00:08:53
[2025-02-09 20:46] VITALS: BP 151/70; PULSE 70; RESP 20; TEMP 37.3; O2SAT 97; BMI 22.8
[2025-02-09 21:17] LABS: MANUAL DIFF FLAG NO
[2025-02-09 21:19] LABS: Hematocrit 33.2 % (42.0-52.0); Hemoglobin 10.8 g/dl (14.0-18.0); Imm Gran Abs Auto 0.01 X10*3/uL (0.00-0.03); Imm Gran Pct Auto 0.2 % (0.0-0.4); Lymphocytes Absolute Auto 1.0 X10*3/uL (1.2-4.9); Mean Corpuscular HGB Conc 32.5 g/dl (31.0-36.0); Mean Corpuscular Hemoglobin 29.7 pg (27.0-33.0); Mean Corpuscular Volume 91.2 fL (80.0-98.0); NRBC Abs Auto 0.000 X10*3/uL (0.0-0.012); NRBC Pct Auto 0.0 /100WBC (0.0-0.2); Platelet Count 180 X10*3/uL (160-400); Red Blood Count 3.64 X10*6/uL (4.60-5.80); White Blood Count 5.7 X10*3/uL (4.8-10.8)
[2025-02-09 21:35] LABS: Alanine Aminotransferase 30 U/L (0-40); Albumin Level 3.9 g/dL (3.5-5.0); Alkaline Phosphatase 93 U/L (39-117); Anion Gap 12 (12-20); Aspartate Amino Transferase 27 U/L (5-37); Blood Urea Nitrogen 14 mg/dL (9-16); Calcium 8.4 mg/dL (8.4-10.2); Carbon Dioxide 23 mmol/L (22-29); Chloride 108 mmol/L (96-108); Creatinine Clr Calc Pharmacy 96.5; Estimated Glomerular Filt Rate > 60; Lipase 10 U/L (8-78); Potassium 3.9 mmol/L (3.3-5.1); Sodium 139 mmol/L (135-145); Total Protein 6.3 g/dL (6.5-8.0)
[2025-02-09 21:38] LABS: IDNOW Serial# 152EDE1D; Influenza B2 Negative (Negative)
[2025-02-09 21:39] LABS: COVID-19 Test Negative (Negative); IDNOW Serial# 16C4AD1C
--- NOTE | 2025-02-09 22:39 | ECG_ITS ---
Test Reason : PAIN Blood Pressure : */* mmHG Vent. Rate : 63 BPM Atrial Rate : 63 BPM P-R Int : 170 ms QRS Dur : 86 ms QT Int : 382 ms P-R-T Axes : 85 57 169 degrees QTcB Int : 390 ms Normal sinus rhythm T wave abnormality, consider lateral ischemia Abnormal ECG When compared with ECG of 03-Feb-2025 10:22, No significant change was found Referred By: Bay Parker Electronically Signed By: ARMANDO ANDREA MD
[2025-02-09 23:51] LABS: Appearance Urine Clear; Glucose Urine UA Negative (Negative); PH 7.0 (5.0-9.0); Specific Gravity - Urine 1.020 (1.005-1.025)
[2025-02-09 23:59] LABS: Other Crystals Urine Present
--- NOTE | 2025-02-10 00:28 | ED.GENADULT ---
HPI - General Adult General Chief complaint: General Medical Stated complaint: fever, chills, ?reaction to Eliquis Time Seen by Provider: 02/09/25 22:17 Source: patient, RN notes reviewed and old records reviewed Mode of arrival: ambulatory Limitations: no limitations History of Present Illness ED Provider: Keith RIVAS narrative: 69-year-old male past medical history significant for atrial flutter on Eliquis, recent CVA a month ago, pericarditis, Parkinson's disease, anxiety, depression, hyperlipidemia presents for evaluation of fevers and chills. Patient reports developing fevers and chills yesterday. He reports feeling somewhat unbalanced as well but does have a history of gait instability He denies any headache, cough, shortness of breath, chest pain pain Denies any abdominal pain, nausea vomiting. Denies any urinary complaints He has not noticed any rashes He has no other complaints or concerns at this time Related Data Home Medications ?Medication ?Instructions ?Recorded ?Confirmed colchicine 0.6 mg tablet 0.6 mg PO DAILY 01/17/25 02/03/25 lamotrigine 100 mg tablet 100 mg PO DAILY 01/17/25 02/03/25 lamotrigine 200 mg tablet 200 mg PO BID 01/17/25 02/03/25 (Lamictal) melatonin 5 mg disintegrating 5 mg PO BEDTIME PRN insomnia 01/17/25 02/03/25 tablet ropinirole 2 mg tablet 2 mg PO BEDTIME 02/03/25 02/03/25 Previous Rx's ?Medication ?Instructions ?Recorded atorvastatin 80 mg tablet 80 mg PO BEDTIME 30 days #30 tabs 01/19/25 apixaban 5 mg tablet 5 mg PO BID #60 tabs 02/06/25 ibuprofen 800 mg tablet 800 mg PO TID #42 tabs 02/06/25 omeprazole 40 mg capsule,delayed 40 mg PO DAILY@0630 #30 caps 02/06/25 release azithromycin 250 mg tablet 250 mg PO DAILY 4 days #4 tabs 02/10/25 doxycycline hyclate 100 mg tablet 100 mg PO BID #13 tabs 02/10/25 Allergies Allergy/AdvReac Type Severity Reaction Status Date / Time No Known Allergies Allergy Verified 02/09/25 20:52 Review of Systems Constitutional: Constitutional: Reports body ache(s), Reports chills, Reports fever(s) and Denies headache(s) Eyes: Eyes: Denies blurry vision ENT: Denies vertigo and Denies headache(s) Cardiovascular: Cardiovascular: Denies chest pain and Denies dyspnea on exertion Respiratory: Respiratory: Denies cough and Denies dyspnea on exertion Gastrointestinal: Gastrointestinal: Denies abdominal pain, Denies nausea and Denies vomiting Musculoskeletal: Musculoskeletal: Denies back pain Integumentary/Breasts: Skin/Breast: Denies rash Neurologic: Denies vertigo and Denies headache(s) [facility] Past Medical History Medical History (Updated 02/10/25 @ 00:30 by Bay Parker) Pericarditis Peripheral demyelinating neuropathy JACOB positive Orthostatic hypertension Restless legs syndrome CVA (cerebral vascular accident) Cognitive disorder Back pain Anxiety Depression Hyperlipidemia Non-melanoma skin cancer Surgical History H/O cervical spine surgery History of ear surgery Family History Family History Father Myocardial infarction Family/Other Cancer Family/Other Breast cancer Mother Skin cancer Social History Social History Household Members: Spouse Housing: House Do you presently have visiting nurse or other home services: Yes Alcohol intake: current Alcohol intake frequency: holidays/special occasions only Alcohol type: beer and hard liquor Comment: Pt declining bed alarm at this time. 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 Physical Exam ED Vital Signs: Vital Signs - 24 hr 02/09/25 20:46 Temperature 99.2 F Pulse Rate 70 Respiratory Rate 20 Blood Pressure 151/70 H Pulse Oximetry 97 Oxygen Delivery Method Room Air BMI result Body Mass Index 22.8 Const General: healthy appearing, comfortable, no acute distress, alert and awake Nutritional Appearance: well nourished Orientation/consciousness: patient oriented x3 HENMT Head: Yes normocephalic and Yes atraumatic Eyes Eyelids: Yes eyelids normal Conjunctivae: conjunctivae normal Sclerae: sclerae normal Corneas: corneas normal Pupils: Equal, round and reactive pupils present EOM: EOMs intact bilaterally Neck Neck: Yes full ROM Resp Effort & Inspection: normal respiratory effort, able to speak in complete sentences, no audible wheezes and not labored Auscultation: clear to auscultation bilaterally Cardio Rate: regular rate Rhythm: regular rhythm GI Inspection: No distended Palpation (GI): Soft to palpation, not firm, nontender, no guarding and not rigid Skin General skin exam: no rashes or lesions noted and elasticity normal Neuro General: patient oriented x3 Cranial nerves: Yes CN's II-XII intact bilaterally, Yes Equal, round and reactive pupils present and Yes Bilaterally intact EOM present Cognition (Neuro): normal cognition Extrem Other: Moving all extremities well without any obvious deformities Medications Administered Discontinued Medications Generic Name Dose Route Start Last Admin Trade Name Freq PRN Reason Stop Dose Admin Acetaminophen 975 mg 02/09/25 22:52 02/09/25 23:21 Acetaminophen 325 Mg Tablet PO 02/09/25 22:53 975 mg ONCE ONE Administration Medical Decision Making Medical Decision Making [facility] Narrative: 69-year-old male presents for evaluation of fevers. His temp in the ER when I rechecked it was 100.3, he has no leukocytosis. He is quite well appearing, he is not tachycardic or hypotensive. He is not meet sepsis criteria. His fever may be related to his pericarditis diagnosis. We will get a chest x-ray, urinalysis. He has no abdominal tenderness on exam. Will defer CT scan at this time. Viral swabs negative. I did order blood cultures. With the patient does have a history of peritonitis, he had an echocardiogram 3 days ago that showed pericardial effusion without evidence of tamponade, I still have a low suspicion attempted on as the patient is not hypotensive, tachycardic. He has no chest pain or back pain. He is able to lie flat comfortably. Differential Diagnosis Differential Diagnoses: The differential diagnosis associated with the presentation includes Viral syndrome Pancreatitis Pneumonia UTI COVID-19 Influenza Admission/Observation Consideration of admission/observation: Escalation of care including admission/observation considered Lab Data [facility] Lab Attestation statement: I reviewed the patient's lab results. No leukocytosis. The patient has a chronic anemia. Normal platelet count. No significant electrolyte abnormalities warranting imaging. Lactic acid within normal limits 02/09/25 21:09 02/09/25 21:09 Labs: Lab Results 02/09/25 02/09/25 02/09/25 Range/Units 21:09 23:23 23:38 WBC 5.7 (4.8-10.8) X10*3/uL RBC 3.64 L (4.60-5.80) X10*6/uL Hgb 10.8 L (14.0-18.0) g/dl Hct 33.2 L (42.0-52.0) % MCV 91.2 (80.0-98.0) fL MCH 29.7 (27.0-33.0) pg MCHC 32.5 (31.0-36.0) g/dl RDW 13.1 (11.0-16.0) % Plt Count 180 (160-400) X10*3/uL MPV 10.8 (9.4-12.4) fL Immature Gran % (Auto) 0.2 (0.0-0.4) % Neut % (Auto) 65.1 (45-73) % Lymph % (Auto) 17.0 L (20-40) % [place] % (Auto) 16.6 H (2-11) % Eos % (Auto) 0.9 (0-4) % Baso % (Auto) 0.2 (0-2) % Lymph # (Auto) 1.0 L (1.2-4.9) X10*3/uL [place] # (Auto) 1.0 (0.1-1.2) X10*3/uL Eos # (Auto) 0.1 (0.0-0.4) X10*3/uL Baso # (Auto) 0.0 (0.0-0.2) X10*3/uL Abs Immat Gran (auto) 0.01 (0.00-0.03) X10*3/uL Absolute Neuts (auto) 3.7 (2.0-8.3) x10*3/uL Absolute Nucleated RBC 0.000 (0.0-0.012) X10*3/uL Nucleated RBC % (auto) 0.0 (0.0-0.2) /100WBC ESR 34 H (0-15) MM/HR Sodium 139 (135-145) mmol/L Potassium 3.9 (3.3-5.1) mmol/L Chloride 108 (96-108) mmol/L Carbon Dioxide 23 (22-29) mmol/L Anion Gap 12 (12-20) BUN 14 (9-16) mg/dL Creatinine 0.88 (0.5-1.4) mg/dL Estim Creat Clear Calc 96.5 Estimated GFR > 60 Random Glucose 135 H (60-115) mg/dL Lactic Acid 1.0 (0.5-2.0) mmol/L Calcium 8.4 (8.4-10.2) mg/dL Total Bilirubin 0.5 (0.0-1.0) mg/dL Direct Bilirubin 0.3 (0.0-0.5) mg/dL AST 27 (5-37) U/L ALT 30 (0-40) U/L Alkaline Phosphatase 93 (39-117) U/L C-Reactive Protein 10.58 H (< or = 0.50) mg/dL Total Protein 6.3 L (6.5-8.0) g/dL Albumin 3.9 (3.5-5.0) g/dL Lipase 10 (8-78) U/L Urine Color Yellow Urine Appearance Clear Urine pH 7.0 (5.0-9.0) Ur Specific [place] 1.020 (1.005-1.025) Urine Protein Trace (Neg-Trace) mg/dL Urine Glucose (UA) Negative (Negative) mg/dL Urine Ketones Negative (Negative) mg/dL Urine Blood Negative (Negative) Urine Nitrite Negative (Negative) Ur Leukocyte Esterase Negative (Negative) Urine RBC 0-2 (0-2) /HPF Urine WBC 0-5 (0-5) /HPF Ur Squamous Epith Cells 0-2 (0-2) /HPF Other Crystals Present Urine Bacteria None Seen (None Seen) Hyaline Casts 0-2 (0-2) /LPF COVID-19 (LISSETH) Negative (Negative) COVID-19 Clin Com See Note Influenza Type A (KAITLIN) Negative (Negative) Influenza Type B (KAITLIN) Negative (Negative) Influenza A & B Note See Note Independent Interpretation I performed an independent interpretation of an: EKG (Normal sinus rhythm with a rate of [address] segment elevations or depressions) and Plain X-Ray Interpretation: Agree with Radiology interpretation Radiology Impression Discussion of test interpretation with radiology: I have reviewed the radiologist's reading. Radiologist Impression: Findings: Small bilateral pleural effusions have developed, slightly larger on the left. Small patchy opacity left lower lobe posteriorly. Cardiomegaly. No acute fracture. IMPRESSION: 1. New small bilateral pleural effusions. 2. Suspected pneumonia in the left lower lobe. This document has been electronically signed by: Navin Hagan MD on 02/10/2025 00:08:53 Discharge Plan Discharge Clinical Impression: Left lower lobe pneumonia Patient Disposition: Home, Self-Care Instructions: Pneumonia (ED) Additional Instructions: Your blood tests were reassuring, there were blood cultures pending. Your x-ray shows maybe a left lower lobe pneumonia. We are going to treat this as if it is a pneumonia this to be have no other source of your fever. The pericarditis or virus that caused a pericarditis may also be contributing to your fever Take both antibiotics as prescribed. Follow up with your primary doctor, return for new or worsening symptoms Prescriptions: New azithromycin 250 mg tablet 250 mg PO DAILY 4 Days Qty: 4 0RF Rx Instructions: start on day 2 of therapy doxycycline hyclate 100 mg tablet 100 mg PO BID Qty: 13 0RF No Action lamotrigine [Lamictal] 200 mg tablet 200 mg PO BID lamotrigine 100 mg tablet 100 mg PO DAILY melatonin 5 mg tablet,disintegrating 5 mg PO BEDTIME PRN (Reason: insomnia) colchicine 0.6 mg tablet 0.6 mg PO DAILY atorvastatin 80 mg Tablet 80 mg PO BEDTIME 30 Days Qty: 30 0RF ropinirole 2 mg tablet 2 mg PO BEDTIME omeprazole 40 mg Capsule,Delayed Release(Dr/Ec) 40 mg PO DAILY@0630 Qty: 30 0RF apixaban 5 mg tablet 5 mg PO BID Qty: 60 0RF ibuprofen 800 mg tablet 800 mg PO TID Qty: 42 0RF Print Language: Jordanian
--- NOTE | 2025-02-10 00:30 | PC.NURSE ---
Assumed care of pt, presents with chills/fever and has been feeling a little off balance lately, pt was recently d/c from pericarditis, aaox4, nad, is at bedside
[2025-02-10 01:27] VITALS: BP 145/73; PULSE 75; RESP 20; TEMP 36.8; O2SAT 97
[2025-02-10 09:23] LABS: Chlamydia pneumoniae PCR Not Detected (Not Detect.); Coronavirus 229E PCR Not Detected (Not Detect.); Coronavirus HKU1 PCR Not Detected (Not Detect.); Coronavirus NL63 PCR Not Detected (Not Detect.); Coronavirus OC43 PCR Not Detected (Not Detect.); RSV PCR Not Detected (Not Detect.); Rhino/Enterovirus PCR Not Detected (Not Detect.); SARS-CoV-2 PCR Not Detected (Not Detect.)
[2025-02-10 09:42] LABS: Influenza A H1 PCR Not Detected (Not Detect.); Influenza A H1-2009 PCR Not Detected (Not Detect.); Influenza A H3 PCR Not Detected (Not Detect.)
== END 2025-02-10 01:40 | disposition home or self-care (01) ==
PROVIDERS: Physician Assistant; Emergency Provider Emergency Medicine; PCP Family Medicine
DX: J18.1 Lobar pneumonia, unspecified organism (principal); I31.9 Disease of pericardium, unspecified; I48.92 Unspecified atrial flutter; G20.A1 Parkinson's disease without dyskinesia, without mention of fluctuations; Z86.73 Personal history of transient ischemic attack (TIA), and cerebral infarction without residual deficits; Z79.01 Long term (current) use of anticoagulants
CPT/HCPCS: 36415; 71046; 80048; 80076; 81001; 83605; 83690; 85025; 85652; 86140; 87040; 87502; 87633; 87635; 93005; 99284; 99285

== ENCOUNTER → 2025-02-09 22:39 | Outpatient (BNV) | payer MEDICARE, SELFPAY | PROVIDERS: Emergency Provider Emergency Medicine; PCP Family Medicine; Visit Provider Internal Medicine Cardiovascular Disease | DX: R94.31 Abnormal electrocardiogram [ECG] [EKG] (principal) | CPT/HCPCS: 93010 ==

== ENCOUNTER → 2025-02-09 22:52 | Outpatient (BNV) | payer MEDICARE, SELFPAY | PROVIDERS: Emergency Provider Emergency Medicine; PCP Family Medicine; Visit Provider Radiology Diagnostic Radiology | DX: J90 Pleural effusion, not elsewhere classified (principal) | CPT/HCPCS: 71046 ==

== ENCOUNTER 2025-02-19 00:52 | Emergency (ER) | payer MEDICARE, SELFPAY ==
--- NOTE | ~2025-02-19 | XR_ITS ---
CLINICAL HISTORY: sob 2 view chest x-ray Comparison: CR - XR CHEST 2V - 02/09/25 23:30 EDT Findings: Small bilateral pleural effusions. Slightly increased since the prior exam. No consolidation. Cardiomegaly. No acute fracture. IMPRESSION: Slightly increased small bilateral pleural effusions. This document has been electronically signed by: Navin Hagan MD on 02/19/2025 03:37:21
--- NOTE | ~2025-02-19 | CT_ITS ---
CLINICAL HISTORY: abdominal distention, elvated LFTS CT abdomen and pelvis with contrast Comparison: None provided Findings: There are bilateral pleural effusions with lower lobe consolidation, possible pneumonia or atelectasis. There is a pericardial effusion with maximum thickness of 1.8 cm. Unremarkable gallbladder and solid organs. No urolithiasis. No bowel obstruction, pneumoperitoneum, or pneumatosis. Pelvic contents unremarkable. Normal appendix. The bones are intact. IMPRESSION: 1. Pericardial effusion. 2. Bilateral lower lobe consolidation with pleural effusions, differential considerations noted. This document has been electronically signed by: Saurav Prieto MD on 02/19/2025 09:25:44
[2025-02-19 01:12] VITALS: BP 126/63; PULSE 75; RESP 22; TEMP 36.1; O2SAT 97; BMI 24.7
--- NOTE | 2025-02-19 01:22 | ECG_ITS ---
Test Reason : SOB Blood Pressure : */* mmHG Vent. Rate : 76 BPM Atrial Rate : 76 BPM P-R Int : 142 ms QRS Dur : 92 ms QT Int : 402 ms P-R-T Axes : 90 62 216 degrees QTcB Int : 452 ms Normal sinus rhythm T wave abnormality, consider lateral ischemia Abnormal ECG When compared with ECG of 09-Feb-2025 22:51, QT has lengthened Referred By: Generic ED Physician Electronically Signed By: Seven Kapoor
[2025-02-19 01:55] LABS: MANUAL DIFF FLAG NO
[2025-02-19 02:02] LABS: Hematocrit 29.4 % (42.0-52.0); Hemoglobin 9.8 g/dl (14.0-18.0); Imm Gran Abs Auto 0.03 X10*3/uL (0.00-0.03); Imm Gran Pct Auto 0.5 % (0.0-0.4); Lymphocytes Absolute Auto 0.8 X10*3/uL (1.2-4.9); Mean Corpuscular HGB Conc 33.3 g/dl (31.0-36.0); Mean Corpuscular Hemoglobin 29.4 pg (27.0-33.0); Mean Corpuscular Volume 88.3 fL (80.0-98.0); NRBC Abs Auto 0.000 X10*3/uL (0.0-0.012); NRBC Pct Auto 0.0 /100WBC (0.0-0.2); Platelet Count 257 X10*3/uL (160-400); Red Blood Count 3.33 X10*6/uL (4.60-5.80); SCAN SMEAR FLAG 1; White Blood Count 5.9 X10*3/uL (4.8-10.8)
[2025-02-19 02:13] LABS: IDNOW Serial# 152EDE1D; Influenza B2 Negative (Negative)
[2025-02-19 02:17] LABS: COVID-19 Test Negative (Negative); IDNOW Serial# 16C4AD1C
[2025-02-19 02:23] LABS: Alanine Aminotransferase 43 U/L (0-40); Albumin Level 3.6 g/dL (3.5-5.0); Alkaline Phosphatase 153 U/L (39-117); Anion Gap 15 (12-20); Aspartate Amino Transferase 47 U/L (5-37); Blood Urea Nitrogen 16 mg/dL (9-16); Calcium 8.6 mg/dL (8.4-10.2); Carbon Dioxide 22 mmol/L (22-29); Chloride 106 mmol/L (96-108); Creatinine Clr Calc Pharmacy 92.0; Estimated Glomerular Filt Rate > 60; Lipase 34 U/L (8-78); Magnesium 2.3 mg/dL (1.6-2.6); NT Pro B Type Natriuretic Pept 448.7 pg/mL (<300); Potassium 3.7 mmol/L (3.3-5.1); Sodium 139 mmol/L (135-145); Total Protein 6.5 g/dL (6.5-8.0); Troponin-I High Sensitivity 3.0 ng/L (<3.5-35.0)
[2025-02-19 03:20] VITALS: BP 127/69; PULSE 97; RESP 18; TEMP 36.7; O2SAT 97
--- OUTSIDE RECORDS SUMMARY | 2025-02-19 03:39 | XMS_ITS | Encounter Summary ---
Author Organization [facility] Address [address] [facility] [address] [place] [phone] Phone Care Team Providers Care Configuration Consultant Name Role Phone Khadra Romo MD Primary Care Provider [phone] John Chopra MD Unavailable [phone] Rai Pendleton-Alonzo Zelaya MD Unavailable Encounter Details Date Type Department Care Team (Late st Contact Info) Description 01/16/2025 Orders Only [facility] [place] [address] Unknown, Unknown, Social History Tobacco Use Types [...] [facility] Endoscopy Admitting Dept Virtual Department [address] [place] [address] 03/01/2025 9:30 AM EDT Hospital Encounter [facility] Endoscopy Admitting Dept Virtual Department [address] [place] [address] Shai Ayon MD 10 [facility] 2 [place] [address] [email or web address] 03/01/2025 9:30 AM EDT - 03/01/2025 10:00 AM EDT Surgery [facility] Endoscopy Admitting Dept Virtual Department [address] [place] [address] Shai Ayon MD 10 [facility] 2 [place] [address] [email or web address] COLONOSCOPY 03/15/2025 3:00 PM EST Office [place] [facility] [place] [address] [facility], 8th Floor, [address] [place] [address] Luanne Rodríguez MD 55 [facility] [address] [place] [address] [email or web address] 04/10/2025 11:00 AM EST Office Visit [facility] [place]rology Neuromuscular [address], [address] [place] [address] Lenny Pendleton MD [address] [facility] [address] [place] [address] [email or web address] 06/09/2025 1:00 PM EST Office Visit [facility] [place] of [place]rology [address] [facility], 8th Floor, [address] [place] [address] John Chopra MD [address] [place] [phone] [email or web address] 07/21/2025 8:40 AM EDT Office Visit [facility] [place] [facility] [address] [facility] [address] [place] [address] Khadra Romo MD 15 [facility] [address] [place] [address] [email or web address] 08/25/2025 11:00 AM EDT Office Visit [facility] [place] [facility] [address] [facility], [address] [place] [address] Clementine Brower MD [address] [facility], [address] [place] [address] [email or web address] Scheduled Procedures [...] Noted Time PHQ-9 Depression Total Score: 12 14/2 024 3:46 PM EST PHQ-2 Depression Total Score: 1 06/28/19 25 2:08 PM EST documented as of this encounter Care Teams Configuration Consultant Relationship Specialty Start Date End Date Khadra Romo MD 15 [facility] 201 [place] [address] [email or web address] PCP - General Family Medicine 06/12/21 John Chopra MD [address] [place] [address] [place] [phone] [email or web address] 06/17/23 Rai Pendleton-Alonzo Zelaya MD 165 [facility] [address] [place] [address] [email or web address] 06/17/23 documented as of this encounter Additional Source Comments The information contained in this document represents components of the legal health record. It is not the complete legal health record.[facility]
--- OUTSIDE RECORDS SUMMARY | 2025-02-19 03:39 | XMS_ITS | Encounter Summary ---
Author Organization [facility] Address [address] [facility] [address] [place] [address] Phone Care Team Providers Care Pedodontist Name Role Phone Khadra Romo MD Primary Care Provider John Chopra MD Unavailable [phone] Rai Pendleton-Alonzo Zelaya MD Unavailable Encounter Details Date Type Department Care Team (Late st Contact Info) Description 02/03/2025 Orders Only [facility] [place] [address] Provider, MD Ramona [address] [place] [address] Social History Tobacco Use Types Packs/Day Years [...] Pass [facility] Endoscopy Admitting Dept Virtual Department [address] [place] [address] 03/01/2025 9:30 AM EDT Hospital Encounter [facility] Endoscopy Admitting Dept Virtual Department [address] [place] [address] Shai Ayon MD [address] [address] 03/01/2025 9:30 AM EDT - 03/01/2025 10:00 AM EDT Surgery [facility] Endoscopy Admitting Dept Virtual Department [address] [place] [address] Shai Ayon MD [address] [address] COLONOSCOPY 03/15/2025 3:00 PM EST Office Visit [facility] Department of Neurology [address] [place] [address], 8th Floor, [address] [place] [address] Luanne Rodríguez MD 55 [facility] 720 [place] [address] [email or web address] 04/10/2025 11:00 AM EST Office Visit [facility] Neurology Neuromuscular [address], [address] [place] [address] Lenny Pendleton MD [address] [place] [address] [address] [place] [address] [email or web address] 06/09/2025 1:00 PM EST Office Visit [facility] Department of Neurology [address] [facility], 8th Floor, [address] [place] [address] John Chopra MD 55 [facility] 835 [place] [phone] [email or web address] 07/21/2025 8:40 AM EDT Office [facility] [place] [facility] [address] [facility] [address] [place] [address] Khadra Romo MD 15 [facility] [address] [place] [address] [email or web address] 08/25/2025 11:00 AM EDT Office Visit [facility] Cardiology [facility] [address] [facility], [address] [place] [address] Clementine Brower MD 40 [facility], [address] [place] [address] [email or web address] Scheduled Procedures Name Priority Associated Diagnoses Date/Ti ny COLONOSCOPY Screen for colon cancer 03/01/2025 9:30 AM EDT documented as of this encounter Procedures Procedure Name Priority Date/Time Associated Diagnosis Comments OUTSIDE IMAGING Routine 02/02/2025 10:18 AM EDT documented in this encounter Results * Outside Imaging Report Only (02/02/2025 10:18 AM EDT) us Historical Provider MD [facility] XR CHEST Final Res ult documented in this encounter Visit Diagnoses Not on filedocumented in this encounter Additional Health Concerns Assessment Noted Time PHQ-9 Depression Total Score: 12 06/17/ 024 3:46 PM EST PHQ-2 Depression Total Score: 1 06/28/19 25 2:08 PM EST documented as of this encounter Care Teams Pedodontist Relationship Specialty Start Date End Date Khadra Romo MD 15 [facility] [address] [place] [address] [email or web address] PCP - General Family Medicine 06/12/21 Jhon Chopra MD [address] [place] [address] [place] [phone] [email or web address] 06/17/23 Rai Pendleton-Alonzo Zelaya MD [address] [place] [address] 820 [place] [address] [email or web address] 06/17/23 documented as of this encounter Additional Source Comments The information contained in this document represents components of the legal health record. It is not the complete legal health record.[facility]
--- OUTSIDE RECORDS SUMMARY | 2025-02-19 03:39 | XMS_ITS | Encounter Summary ---
Author Organization [facility] Address [address] [employer] [facility] [address] [place] [address] Phone Care Team Providers Care Lime Kiln And Recausticizing Operator Name Role Phone Khadra Romo MD Primary Care Provider [phone] John Chopra MD Unavailable [phone] Lenny Pendleton MD Unavailable Reason for Visit * Reason Onset Date Comments Patient Returned Call 01/16/2025 Encounter Details Date Type Department Care Team (Late st Contact Info) Description 01/16/2025 Telephone [facility] SUPPORT 2 [place], [place] [phone] Maddison Irizarry CNP 2 [place] [phone] [email or web address] Patient Returned Call Social History Tobacco Use [...] feeling fine currently, no concerns. Has called [facility] cardiology to request appointment, has not heard back yet. Was not happy with [facility] and would like to proceed with [facility]. F/U appt scheduled for 01/19 with PCP. [...] Pass [facility] Endoscopy Admitting Dept Virtual Department [address] [place] [address] 03/01/2025 9:30 AM EDT Hospital Encounter [facility] Endoscopy Admitting Dept Virtual Department 30 [place] [address] Shai Ayon MD 10 [facility] 2 [place] [address] [email or web address] 03/01/2025 9:30 AM EDT - 03/01/2025 10:00 AM EDT Surgery [facility] Endoscopy Admitting Dept Virtual Department 30 [place] [address] Shai Ayon MD 10 [facility] 2 [place] [address] [email or web address] COLONOSCOPY 03/15/2025 3:00 PM EST Office Visit [facility] Department of Neurology 55 [facility], 8th Floor, [address] [place] [address] Luanne Rodríguez MD [address] [address] [email or web address] 04/10/2025 11:00 AM EST Office Visit [facility] Neurology Neuromuscular [address], [address] [place] [address] Lenny Pendleton MD [address] [place] [address] [address] [place] [address] [email or web address] 06/09/2025 1:00 PM EST Office Visit [facility] Department of Neurology [address] [facility], 8th Floor, [address] [place] [address] John Chopra MD 55 [facility] 835 [place] [phone] [email or web address] 07/21/2025 8:40 AM EDT Office Visit [facility] Primary Care 15 [facility] 201 [place] [address] Khadra Romo MD [address] [address] [email or web address] 08/25/2025 11:00 AM EDT Office Visit [facility] Cardiology [facility] [address], [address] [place] [address] Clementine Brower MD [address] [place] [address] [email or web address] Scheduled Procedures Name Priority Associated Diagnoses Date/Ti me COLONOSCOPY Screen for colon cancer 03/01/2025 9:30 AM EDT documented as of this encounter Visit Diagnoses Not on filedocumented in this encounter Additional Health Concerns Assessment Noted Time PHQ-9 Depression Total Score: 12 024 3:46 PM EST PHQ-2 Depression Total Score: 1 06/28/19 25 2:08 PM EST documented as of this encounter Care Teams [employer] Recausticizing Operator Relationship Specialty Start Date End Date Khadra Romo MD [address] [address] [email or web address] PCP - General Family Medicine 06/12/21 John Chopra MD [address] [place] [address] [place] [phone] [email or web address] 06/17/23 Lenny Pendleton MD [address] [place] [address] 820 [place] [address] [email or web address] 06/17/23 documented as of this encounter Additional Source Comments The information contained in this document represents components of the legal health record. It is not the complete legal health record.[facility]
--- OUTSIDE RECORDS SUMMARY | 2025-02-19 03:40 | XMS_ITS | Encounter Summary ---
Author Organization [facility] Address [address] [facility] [address] [place] [address] Phone Care Team Providers Care Communications Senior Associate Name Role Phone Khadra Romo MD Primary Care Provider John Chopra MD Unavailable [phone] Rai Pendleton-Alonzo Zelaya MD Unavailable Encounter Details Date Type Department Care Team (Late st Contact Info) Description 02/10/2025 Orders Only [facility] [place] [id number] Provider, MD Ramona [address] [place] [address] Social History Tobacco Use Types Packs/Day [...] [facility] Endoscopy Admitting Dept Virtual Department [address] [place] [address] 03/01/2025 9:30 AM EDT Hospital Encounter [facility] End[facility] Admitting Dept Virtual Department [address] [place] [address] Shai Ayon MD [address] [address] 03/01/2025 9:30 AM EDT - 03/01/2025 10:00 AM EDT Surgery [facility] Endoscopy Admitting Dept Virtual Department [address] [place] [address] Shai Ayon MD [address] [address] COLONOSCOPY 03/15/2025 3:00 PM EST Office Visit [facility] Department of Neurology [address] [place] [address], 8th Floor, [address] [place] [address] Luanne Rodríguez MD 55 [facility] 720 [place] [address] [email or web address] 04/10/2025 11:00 AM EST Office Visit [facility] Neurology Neuromuscular [address], [address] [place] [address] Lenny Pendleton MD [address] [place] [address] [address] [place] [address] [email or web address] 06/09/2025 1:00 PM EST Office Visit [facility] Department of Neurology 55 [facility], 8th Floor, [address] [place] [address] John Chopra MD 55 [facility] 835 [place] [phone] [email or web address] 07/21/2025 8:40 AM EDT Office [facility] [address] [facility] [address] [place] [address] Khadra Romo MD [address] [facility] [address] [place] [address] [email or web address] 08/25/2025 11:00 AM EDT Office Visit [facility] [address] [facility], [address] [place] [address] Clementine Brower MD 40 [facility], [address] [place] [address] [email or web address] Scheduled Procedures Name Priority Associated Diagnoses Date/Ti nh COLONOSCOPY Screen for colon cancer 03/01/2025 9:30 AM EDT documented as of this encounter Procedures Procedure Name Priority Date/Time Associated Diagnosis Comments OUTSIDE IMAGING Routine 02/09/2025 10:51 AM EDT documented in this encounter Results * Outside Imaging Report Only (02/09/2025 10:51 AM EDT) us Historical Provider MD NAVAS XR CHEST Final Res ult documented in this encounter Visit Diagnoses Not on filedocumented in this encounter Additional Health Concerns Assessment Noted Time PHQ-9 Depression Total Score: 12 06/17/ 024 3:46 PM EST PHQ-2 Depression Total Score: 1 06/28/19 25 2:08 PM EST documented as of this encounter Care Teams Communications Senior Associate Relationship Specialty Start Date End Date Khadra Romo MD [address] [facility] [address] [place] [address] [email or web address] PCP - General Family Medicine 06/12/21 John Chopra MD [address] [place] [address] [place] [phone] [email or web address] 06/17/23 Rai Pendleton-Alonzo Zelaya MD [address] [place] [address] [address] [place] [address] [email or web address] [email or web address] 06/17/23 documented as of this encounter Additional Source Comments The information contained in this document represents components of the legal health record. It is not the complete legal health record.[facility]
--- OUTSIDE RECORDS SUMMARY | 2025-02-19 03:41 | XMS_ITS | Data Portability ---
Author Organization MATTHEW [facility] [address] Address [address] [place] [address] Assessment No assessment recorded. Plan of Treatment Reminders Order Date Submit Date Provider Last Modified By Organization Details Last Modified Time Details Appointments None recorded. Lab None recorded. Referral None recorded. Procedures removal impacted cerumen using irrigatio n/lavage (PROC) 2021 022 [email or web address] Not available 09:13:49 Surgeries None recorded. Imaging None recorded. Medication Orders None recorded. Patient TargetsNo targets recorded. Patient Instructions Encounter Date Encounter Id Patient Instructions Last Modified By Organization Details Last Modified Time 04/19/2022 [id number] earwax blockage: care instructions [email or web address] Not available 04/19/2022 16:26:46 earwax blockage: care instructions [email or web address] Not available 04/19/2022 16:26:46 You should follow-up with your PCP in days, or at any time if your condition does not improve or worsens. Any acute change should prompt a visit to the nearest Emergency Department. Increase oral fluids, rest while you are ill, ER if needed for worsening symptoms [email or web address] Not available 04/19/2022 16:35:08 Reason for Referral None Reported. Problems Name Problem SNOMED Code Status Onset Date Resolution Date Notes Provider Name and Address Organization Details Recorded Time Hyperlipidemia 65089775 Active 2021 MATTHEW Varela [facility] 2 15:42:16 Depressive disorder 57952513 Active 2021 MATTHEW Varela [facility] 2 15:43:04 Problem Notes None recorded. Procedures Surgical History Date Name Laterality Status Provider Name and Address Organization Details Recorded Time 04/19/20 Cerumen Removal by Irrigation completed NASIR HANCOCKRON PA - [facility] 04/19/2022 16:19:33 excision of basal cell carcinoma completed NASIRSHELLEY MENDEZ PA - [facility] 04/19/2022 15:44:44 transurethral prostatectomy completed NASIRSHELLEY MENDEZ PA - [facility] 04/19/2022 15:44:51 Imaging Results None recorded. Procedure Notes None recorded. Medical Equipment None Reported. Allergies No known drug allergies Medications Name Sig Start Date Stop Date Status Note LastModified by Organization Details LastModified Time lamotrigine active Not Available Not A vailable Not Available Vitamin D active Not Available Not Belgica ilable Not Available lovastatin active Not Available Not Av ailable Not Available bupropion HCl active Not Available Not Available Not Available Vitamin B12 active Not Available Not A vailable Not Available dextroamphetamine active Not Available Not Available Not Available Vitals Date Recorded Body height Body mass index (BMI) Body weight Respiratory rate Pain severity - 0-10 verbal numeric rating [Score] - Reported Oxygen saturation Oxygen saturation in Arterial blood by Pulse oximetry Heart rate Body temperature Systolic And Diastolic Provider Name and Address Organization Details Last Updated DateTime 2 182.88 cm 23.6 kg/m2 34761.0 7 g 18 /min 0 100 % 100 % 54 /min 98.8 [degF] 132/70 mm[Hg] NASIR HANCOCKRON PA - [facility] 15:45:46 Social History Question Answer Notes LastModified by [employer] Details LastModified Time Tobacco Smoking Status Never Smoker NASIR HANCOCKRON regalado PA - [facility] 04/19/2022 15:44:21 Have You Recently Traveled Abroad? No Information not available 04/19/2022 Sex: Unknown Functional Status Question Answer Note LastModified by [employer] Details LastModified Time Do you use any illicit or recreational drugs? No Information not available 04/19/2022 Do you or have you ever used any other forms of tobacco or nicotine? No Information not available 04/19/2022 What is your level of alcohol consumption? None Information not available 04/19/2022 Mental Status None recorded. Family History Relationship Description Onset Age of this Age Resolved Age Notes LastModified by Organization Details LastModified Time Father Coronary arterioscler osis [email or web address] Not available 2021 15:43:53 Sister Malignant neoplasm of breast [email or web address] Not available 2021 15:44:06 Mother Malignant neoplasm of skin [email or web address] Not available 2021 15:44:14 Medical History No medical history recorded. Immunizations Vaccine Type Date Status Note Provider Nam e and Address Organization Details Recorded Time COVID-19, mRNA, LNP-S, PF, 30 mcg/0.3 mL dose 1 completed NASIR MACHNACZ null, PA - [facility] 04/19/2022 15:41:42 Influenza, split virus, quadrivalent, PF 7 completed NASIR MACHNACZ null, PA - [facility] 04/19/2022 15:41:42 Influenza, split virus, trivalent, preservative 7 completed NASIR MACHNACZ null, PA - [facility] 04/19/2022 15:41:42 Novel Lgzyqavnb-[id number], all formulations 0 completed NASIR MACHNACZ null, PA - [facility] 04/19/2022 15:41:42 Influenza, split virus, trivalent, preservative 4 completed NASIR MACHNACZ null, PA - [facility] 04/19/2022 15:41:42 zoster recombinant 1 completed NASIR MACHNACZ null, PA - [facility] 04/19/2022 15:41:42 Tdap 4 completed NASIR MACHNACZ null, PA - [facility] 04/19/2022 15:41:42 Hep B, adult 8 completed NASIR MACHNACZ null, PA - [facility] 04/19/2022 15:41:42 zoster recombinant 0 completed NASIR MACHNACZ null, PA - [facility] 04/19/2022 15:41:42 Influenza, split virus, trivalent, PF 5 completed NASIR MACHNACZ null, PA - [facility] 04/19/2022 15:41:42 Influenza, split virus, trivalent, preservative 3 completed NASIR MACHNACZ null, PA - [facility] 04/19/2022 15:41:42 Hep B, adult 9 completed NASIR MACHNACZ null, PA - [facility] 04/19/2022 15:41:42 COVID-19, mRNA, LNP-S, PF, 100 mcg/0.5mL dose or 50 mcg/0.25mL dose 0 completed NASIR MACHNACZ null, PA - [facility] 04/19/2022 15:41:42 zoster live 6 completed NASIR MACHNACZ null, PA - [facility] 04/19/2022 15:41:42 COVID-19, mRNA, LNP-S, PF, 100 mcg/0.5mL dose or 50 mcg/0.25mL dose 1 completed NASIR MACHNACZ null, PA - [facility] 04/19/2022 15:41:42 COVID-19, mRNA, LNP-S, bivalent, PF, 50 mcg/0.5 mL or 25mcg/0.25 mL dose 2 completed NASIR MACHNACZ null, PA - [facility] 04/19/2022 15:41:42 Influenza, high-dose, quadrivalent, PF 2 completed NASIR MACHNACZ null, PA - [facility] 04/19/2022 15:41:42 Influenza, split virus, quadrivalent, PF 9 completed NASIR MACHNACZ null, PA - [facility] 04/19/2022 15:41:42 Hep B, adult 8 completed NASIR MACHNACZ null, PA - [facility] 04/19/2022 15:41:42 Influenza, adjuvanted, quadrivalent, PF 1 completed NASIR MACHNACZ null, PA - [facility] 04/19/2022 15:41:42 Influenza, split virus, quadrivalent, preservative 8 completed NASIR MACHNACZ null, PA - [facility] 04/19/2022 15:41:42 Td (adult) 6 completed NASIR MACHNACZ null, PA - [facility] 04/19/2022 15:41:42 Past Encounters Encounter ID Performer Location Encounter Start Date Encounter Closed Date Diagnosis/Indication Diagnosis SNOMED-CT Code Diagnosis ICD10 Code Diagnosis IMO Codes Diagnosis Note [id number] [facility] [address] [address] 08/16/2016 16:58:42 08/16/2016 18:27:26 [id number] Eugne[place] [address] [address] 04/19/2022 15:23:51 04/19/2022 16:28:37 Impacted cerumen of bilateral ears 7514116820 745346 H61.23 Health Concerns Section Related Observation LastModified by Organization Detai ls LastModified Time None Recorded Concern Status LastModified by Organization Details LastModified Time None Recorded Advance Directives Directive None Recorded Payers Insurance Date Sequence Insurance Name Policy Number Policy Tellez Covered Member ID Tellez Member ID Guarantor Name 04/19/2022 1 [employer] [place] [id number] Danny Lee [id number] Danny Lee 04/19/[address] [facility] - MEDICARE PREFERRED (MEDICARE REPLACEMENT HMO) [facility] Dannymurtaza Lee [id number] Danny Lee Notes Date Note Type Note Provider Name and Address Organization Details Recorded Time 04/19/20 22 text/htm l Ear problem UCReported by PatientHPIFor quality, patient reportscloggedanddecreased hearing. For severity, patient reportsmoderate. For source of patient information, patient reportsinformation obtained from patientandpatient arrived at urgent care ambulatory. For location, patient reportsbilateral. For duration, patient reports3 weeks. For context, patient reportsno sick contacts. For modifying factors, patient reportsdoes not hurt to lie on, or pull on ear,does not hurt to chew, andoften has wax accumulation. Eugenia Bearden MD [address] [place] [address] [facility] [place], [place], [address], [place] - [facility] 04/19/2022 16:36:46
--- OUTSIDE RECORDS SUMMARY | 2025-02-19 03:41 | XMS_ITS | Encounter Summary ---
Author Organization [facility] Address [email or web address] [place] [address] Phone Care Team Providers Care Audio Visual Aids Director Name Role Phone Khadra Romo MD Primary Care Provider [phone] John Chopra MD Unavailable [phone] Rai Pendleton-Alonzo Zelaya MD Unavailable Encounter Details Date Type Department Care Team (Late st Contact Info) Description 01/06/2024 Procedure Pass [facility], Ct Scan - [address] [address] Social History Tobacco Use Types Packs/Day Years [...] high school, GED, job training, learning the [place] language, technical skills, or developing parenting skills)? [...] [facility] Endoscopy Admitting Dept Virtual Department [address] [place] [address] 03/01/2025 9:30 AM EDT Hospital Encounter [facility] Endoscopy Admitting Dept Virtual Department [address] [place] [address] Shai Ayon MD [address] [address] [email or web address] 03/01/2025 9:30 AM EDT - 03/01/2025 10:00 AM EDT Surgery [facility] Endoscopy Admitting Dept Virtual Department [address] [place] [address] Shai Ayon MD [address] [address] [email or web address] COLONOSCOPY 03/15/2025 3:00 PM EST Office Visit [facility] Department of Neurology [address] [facility], 8th Floor, [address] [place] [address] Luanne Rodríguez MD 55 [facility] 720 [place] [address] [email or web address] 04/10/2025 11:00 AM EST Office Visit [facility] Neurology Neuromuscular [address], [address] [place] [address] Lenny Pendleton MD [address] [facility] [address] [place] [address] [email or web address] 06/09/2025 1:00 PM EST Office Visit [facility] Department of Neurology [address] [facility], 8th Floor, [address] [place] [address] John Chopra MD 55 [facility] [address] [place] [phone] [email or web address] 07/21/2025 8:40 AM EDT Office Visit [facility] [place] [facility] [address] [facility] [address] [place] [address] Khadra Romo MD 15 [facility] 201 [place] [address] 08/25/2025 11:00 AM EDT Office Visit [facility] Cardiology [facility] [address] [facility], [address] [place] [address] Clementine Brower MD 40 [facility], [address] [place] [phone] [email or web address] Scheduled Procedures Name Priority Associated Diagnoses Date/Ti me COLONOSCOPY Screen for colon cancer 03/01/2025 9:30 AM EDT documented as of this encounter Visit Diagnoses Not on filedocumented in this encounter Additional Health Concerns Assessment Noted Time PHQ-9 Depression Total Score: 12 024 3:46 PM EST PHQ-2 Depression Total Score: 4 06/23/19 24 11:49 PM EST documented as of this encounter Care Teams Audio Visual Aids Director Relationship Specialty Start Date End Date Khadra Romo MD 15 [facility] 201 [place] [address] [email or web address] PCP - General Family Medicine 06/12/21 John Chopra MD [address] [place] [address] [address] [place] [phone] [email or web address] Neurology 06/17/23 Rai Pendleton-Alonzo Zelaya MD [address] [place] [address] [address] [place] [address] [email or web address] 06/17/23 documented as of this encounter Additional Source Comments The information contained in this document represents components of the legal health record. It is not the complete legal health record.[facility]
--- OUTSIDE RECORDS SUMMARY | 2025-02-19 03:41 | XMS_ITS | Data Portability ---
Author Organization [place] [facility] Address [address] [place] [phone] Care Team Providers Care Morgue Librarian Name Role Phone [facility]) Primary Care Provider Assessment Encounter Date Assessment Date Assessment LastModified by Organization Details LastModified Time 01/12/2019 01/12/2019 Overview/History : 63 yo male with PMH of ADHD, depression, HLD who presents with complain for right great toe swelling, erythema, and discharge X6 days. Patient denies trauma, states that he noted small cut on the area around the nail that is swollen, red, tender to touch, with small amount of purulent discharge oozing. Patient reports soaking affected toe in warm water with vinegar and applying bacitracin. States symptoms are worsening. Denies fever, chills, or any other symptoms Exam: very pleasant older age male, well appearing, no acute distress, non-toxic appearance; alert and oriented X4; ambulates independently without difficulty Heart sounds are regular rate and rhythm; no audible murmurs, rubs, or gallops No signs of respiratory distress. Lungs are clear to auscultation in all fileds Erythema surrounding nail of the right great toe; erythema extends approximately 1cm from the nail; area in tender to touch and mildly swollen; small amount of yellow/green purulent discharge noted coming out of the small superficial open skin area DDx considered, but not limited to: paronychia of toe - most likely dx based on clinical presentation wound cellulitis gout - unlikely; pain is mild, purulent discharge is present septic joint - unlikely osteomyelitis - unlikely Work up/Results: wound culture - pending Plan/Discussion: - based on clinical presentation toe paronychia is the most likely dx at this time - symptoms are present for 6 days and are worsening with conservative tx; start keflex 500mg PO BID X5d; first dose given on scene; culture pending - continue with warm water soaks and bacitracin; keep area clen and dry - follow up with PCP as needed if symptoms worsen or do not improve with abx treatment - advised when to seek immediate medical attention/911/ED - patient expressed understanding and agreed to tx plan In order to obtain further information and compare any laboratory results/values, I have accessed patient records on the [employer]. This information was pertinent in my medical decision making today. Time On Scene with Patient: 00:16:43 carlo Not available 01/13/2019 01:50:34 Plan of Treatment Reminders Order Date Submit Date Provider Last Modified By Organization Details Last Modified Time Details Appointments None recorded. Lab culture, michelleicia l wound 2018 019 [facility] [place] [facility] (Centralized Electronic Ordering - All Locations), Patient Can Go To The Location Of Their Choice, [address] 11:21:29 Referral None recorded. Procedures None recorded. Surgeries None recorded. Imaging None recorded. Medication Orders Keflex 500 mg capsule 2018 019 INTERFACE [id number], [address] [place], [place], [id number], 19:43:24 cephalexin 500 mg capsule 2018 019 [id number], [address], [place], [phone], 19:43:14 Patient TargetsNo targets recorded. Patient Instructions Encounter Date Encounter Id Patient Instructions Last Modified By Organization Details Last Modified Time 01/12/2019 [id number] YOU WERE SEEN FOR WOUND ON YOUR TOE THE WOUND IS INFECTED ANTIBIOTICS WERE SEND TO YOUR PHARMACY, PLEASE TAKE PRESCRIBED CONTINUE WARM SOAKS EVERY NIGHT AND APPLY BACITRACIN FOLLOW UP WITH YOUR PRIMARY CARE DOCTOR NEEDED SEEK IMMEDIATE MEDICAL ATTENTION OR CALL 911 IF YOU DEVELOP ANY NEW CONCERNING SYMPTOMS Thank you for your visit with [facility] today. You were seen today for treatment of a wound. Please seek immediate medical attention if you develop increased pain, redness, or swelling of your wound. Also, you should be evaluated if the wound becomes warm to the touch, or if there is a cloudy, yellow-brown discharge from the wound. There is always the possibility of a hidden tendon injury or foreign object in the wound. If you have problems moving your arm or leg, or if you see red streaks up the arm or leg, seek immediate medical attention. If you develop any new or worsening symptoms and need after hours care, please go to nearest ER and/or call 911. If you have additional concerns or develop a change in your condition between 8am-10pm, please call [facility] at [phone] to help navigate your care. [email or web address] Not available 01/12/2019 19:43:12 Reason for Referral None Reported. Results Created Date Observation Date Name Description Value Unit Range Abnormal Flag Note LastModifiedBy Organization Detail LastModifiedTime 01/13/2001/13/2019 melody redavina ficia l wound specimen description SWAB PARONY FRANCHESCA OF TOE Not Available [facility] (Centralized Electronic Ordering - All Locations) Patient Can Go To The Location Of Their Choice, 01/15/2019 11:21:29 01/13/2001/13/2019 culttabby re super ficia l wound special requests NONE Not Available [facility] (Centralized Electronic Ordering - All Locations) Patient Can Go To The Location Of Their Choice, 01/15/2019 11:21:29 01/13/2001/13/2019 culttabby re super ficia l wound gram stain 1+ POLYM ORPHO NUCLE AR LEUKO CYTES 2+ GRAM NEGAT ANAM RODS 1+ GRAM POSIT ANAM COCCI Not Available [facility] (Centralized Electronic Ordering - All Locations) Patient Can Go To The Location Of Their Choice, 01/15/2019 11:21:29 01/13/2001/15/2019 cultu re super ficia l wound culture abnormal 4+ PSEUD OMONA S AERUG INOSA 4+ BASIL TIA JULIA SCENS Not Available [facility] (Centralized Electronic Ordering - All Locations) Patient Can Go To The Location Of Their Choice, 01/15/2019 11:21:29 01/13/2001/15/2019 culttabby re super ficia l wound report status FINAL 2018 Not Available [facility] (Centralized Electronic Ordering - All Locations) Patient Can Go To The Location Of Their Choice, 01/15/2019 11:21:29 01/13/2001/15/2019 cultu re, super ficia l wound organism ORGANI SM 4+ PSEUDO MONAS AERUGI NOSA Not Available [facility] (Centralized Electronic Ordering - All Locations) Patient Can Go To The Location Of Their Choice, 01/15/2019 11:21:29 01/13/2001/15/2019 cultu re, super ficia l wound method METHOD MIN. INHIB. CONC. (MCG/M L) Not Available [facility] (Centralized Electronic Ordering - All Locations) Patient Can Go To The Location Of Their Choice, 01/15/2019 11:21:29 01/13/2001/15/2019 cultu re, super ficia l wound cefepime CEFEPI ME SUSCEP TIBLE susceptib le Not Available [facility] (Centralized Electronic Ordering - All Locations) Patient Can Go To The Location Of Their Choice, 01/15/2019 11:21:29 01/13/2001/15/2019 cultu re, super ficia l wound ceftazidime CEFTAZ IDIME SUSCEP TIBLE susceptib le Not Available [facility] (Centralized Electronic Ordering - All Locations) Patient Can Go To The Location Of Their Choice, 01/15/2019 11:21:29 01/13/2001/15/2019 cultu re, super ficia l wound ciprofloxaci n CIPROF LOXACI N SUSCEP TIBLE susceptib le Not Available [facility] (Centralized Electronic Ordering - All Locations) Patient Can Go To The Location Of Their Choice, 01/15/2019 11:21:29 01/13/2001/15/2019 cultu re, super ficia l wound gentamicin GENTAM ICIN SUSCEP TIBLE susceptib le Not Available [facility] (Centralized Electronic Ordering - All Locations) Patient Can Go To The Location Of Their Choice, 01/15/2019 11:21:29 01/13/2001/15/2019 cultu re, super ficia l wound levofloxacin LEVOFL OXACIN SUSCEP TIBLE susceptib le Not Available [facility] (Centralized Electronic Ordering - All Locations) Patient Can Go To The Location Of Their Choice, 01/15/2019 11:21:29 01/13/2001/15/2019 cultu re, super ficia l wound meropenem MEROPE NEM SUSCEP TIBLE susceptib le Not Available [facility] (Centralized Electronic Ordering - All Locations) Patient Can Go To The Location Of Their Choice, 01/15/2019 11:21:29 01/13/2001/15/2019 cultu re, super ficia l wound piperacillin /tazobactam PIPERA CILLIN /TAZOB AC SUSCEP TIBLE susceptib le Not Available [facility] (Centralized Electronic Ordering - All Locations) Patient Can Go To The Location Of Their Choice, 01/15/2019 11:21:29 01/13/2001/15/2019 cultu re, super ficia l wound organism ORGANI SM 4+ SERRAT IA MARCES CENS Not Available [facility] (Centralized Electronic Ordering - All Locations) Patient Can Go To The Location Of Their Choice, 01/15/2019 11:21:29 01/13/2001/15/2019 cultu re, super ficia l wound method METHOD MIN. INHIB. CONC. (MCG/M L) Not Available [facility] (Centralized Electronic Ordering - All Locations) Patient Can Go To The Location Of Their Choice, 01/15/2019 11:21:29 01/13/2001/15/2019 cultu re, super ficia l wound ampicillin AMPICI LLIN RESIST ANT resistant Not Available [facility] (Centralized Electronic Ordering - All Locations) Patient Can Go To The Location Of Their Choice, 01/15/2019 11:21:29 01/13/2001/15/2019 cultu re, super ficia l wound ampicillin/s ulbactam AMPICI LLIN/S ULBACT AM RESIST ANT resistant Not Available [facility] (Centralized Electronic Ordering - All Locations) Patient Can Go To The Location Of Their Choice, 01/15/2019 11:21:29 01/13/2001/15/2019 cultu re, super ficia l wound amoxicillin/ clavulanic acid AMOXIC ILLIN/ CLAVUL AN RESIST ANT resistant Not Available [facility] (Centralized Electronic Ordering - All Locations) Patient Can Go To The Location Of Their Choice, 01/15/2019 11:21:01/13/2001/15/2019 cultu re, super ficia l wound cefazolin CEFAZO BLOSSOM RESIST ANT resistant Not Available [facility] (Centralized Electronic Ordering - All Locations) Patient Can Go To The Location Of Their Choice, 01/15/2019 11:21:29 01/13/2001/15/2019 cultu re, super ficia l wound cefepime CEFEPI ME SUSCEP TIBLE susceptib le Not Available [facility] (Centralized Electronic Ordering - All Locations) Patient Can Go To The Location Of Their Choice, 01/15/2019 11:21:29 01/13/2001/15/2019 cultu re, super ficia l wound ceftriaxone CEFTRI AXONE SUSCEP TIBLE susceptib le Not Available [facility] (Centralized Electronic Ordering - All Locations) Patient Can Go To The Location Of Their Choice, 01/15/2019 11:21:29 01/13/2001/15/2019 cultu re, super ficia l wound ciprofloxaci n CIPROF LOXACI N SUSCEP TIBLE susceptib le Not Available [facility] (Centralized Electronic Ordering - All Locations) Patient Can Go To The Location Of Their Choice, 01/15/2019 11:21:29 01/13/2001/15/2019 cultu re, super ficia l wound gentamicin GENTAM ICIN SUSCEP TIBLE susceptib le Not Available [facility] (Centralized Electronic Ordering - All Locations) Patient Can Go To The Location Of Their Choice, 01/15/2019 11:21:29 01/13/2001/15/2019 cultu re, super ficia l wound levofloxacin LEVOFL OXACIN SUSCEP TIBLE susceptib le Not Available [facility] (Centralized Electronic Ordering - All Locations) Patient Can Go To The Location Of Their Choice, 01/15/2019 11:21:29 01/13/2001/15/2019 cultu re, super ficia l wound meropenem MEROPE NEM SUSCEP TIBLE susceptib le Not Available [facility] (Centralized Electronic Ordering - All Locations) Patient Can Go To The Location Of Their Choice, 01/15/2019 11:21:29 01/13/2001/15/2019 cultu re, super ficia l wound piperacillin /tazobactam PIPERA CILLIN /TAZOB AC SUSCEP TIBLE susceptib le Not Available [facility] (Centralized Electronic Ordering - All Locations) Patient Can Go To The Location Of Their Choice, [id number] 01/15/2019 11:21:29 01/13/2001/15/2019 cultu re, super ficia l wound trimeth/sulf amethox TRIMET H/SULF AMETHO X SUSCEP TIBLE susceptib le Not Available [facility] (Centralized Electronic Ordering - All Locations) Patient Can Go To The Location Of Their Choice, 01/15/2019 11:21:29 01/13/2001/15/2019 cultu re, super ficia l wound tetracycline TETRAC YCLINE RESIST ANT resistant Not Available [facility] (Centralized Electronic Ordering - All Locations) Patient Can Go To The Location Of Their Choice, 01/15/2019 11:21:29 Result Notes None recorded. Medical Equipment None Reported. Allergies No known drug allergies Medications Name Sig Start Date Stop Date Status Note LastModified by Organization Details LastModified Time lamotrigine 200 mg tablet active Not Available Not Available Not Available sildenafil 100 mg tablet 01/12 completed Not Available Not Available Not Available cephalexin 500 mg capsule 500 mg PO administe red on scene. Time administe red: 1932018 active Not Available Not Available Not Avai lable dextroamphe tamine-amph etamine 20 mg tablet active Not Available Not Available No t Available lovastatin 20 mg tablet active Not Available Not Available Not Available bupropion HCl XL 300 mg 24 hr tablet, extended release active Not Available Not Available Not Available bupropion HCl XL 150 mg 24 hr tablet, extended release 01/12 completed Not Available Not Available Not Available tadalafil 20 mg tablet 01/12 completed Not Available Not Available Not Available Vitals Date Recorded Heart rate Oxygen saturation Oxygen saturation in Arterial blood by Pulse oximetry Body temperature Respiratory rate Systolic And Diastolic Provider Name and Address Organization Details Last Updated DateTime 9 64 /min 98 % 98 % 98.3 [degF] 16 /min 142/82 mm[Hg] Not Available [facility] 9 19:27:33 Social History None recorded. Functional Status None recorded. Mental Status None recorded. Family History Nothing Reported. Medical History Condition Response Diabetes N Coronary Artery Disease N Cancer N Stroke N Asthma N COPD N Depression Y High Cholesterol Y Pulmonary Embolism N Hypertension N Kidney Disease N Past Encounters Encounter ID Performer Location Encounter Start Date Encounter Closed Date Diagnosis/Indication Diagnosis SNOMED-CT Code Diagnosis ICD10 Code Diagnosis IMO Codes Diagnosis Note [id number] MATTHEW VENEGAS [facility] [address] [place] [address] 01/12/2019 19:26:41 01/13/2019 01:55:49 Paronychia of toe 079804215 L03.039 Wound cellulitis 1501947 03 L03.90 Health Concerns Section Related Observation LastModified by Organization Detai ls LastModified Time None Recorded Concern Status LastModified by Organization Details LastModified Time None Recorded Advance Directives Directive None Recorded Payers Insurance Date Sequence Insurance Name Policy Number Policy Tellez Covered Member ID Tellez Member ID Guarantor Name 01/13/2019 1 [facility] [id number] Chilo Lee [id number] Chilomurtaza Lee 01/10/2019 1 *SELF PAY* Chilo Lee [id number] Chilomurtaza Lee 01/13/2019 1 [facility] [id number] Chilo Lee [id number] Chilo Lee Notes Date Note Type Note Provider Name and Address Organization Details Recorded Time 01/12/2019 text/html Mr. Lee is a 63 yo male new to and this provider who presents with complain for right great toe swelling, erythema, and discharge X6 days. Patient denies trauma, states that he noted small cut on the area around the nail that is swollen, red, tender to touch, with small amount of purulent discharge oozing. Patient reports soaking affected toe in warm water with vinegar and applying bacitracin. States symptoms are worsening. Denies fever, chills, or any other symptomsComorbid ities: ADHD, depression, HLD MATTHEW VENEGAS [address], [place], [address], [place] [facility] 01/13/2019 01:50:39
--- OUTSIDE RECORDS SUMMARY | 2025-02-19 03:41 | XMS_ITS | Encounter Summary ---
Author Organization [employer] Address [address] [facility] [address] [place] [phone] Phone Care Team Providers Care Doctor Of Naturopathic Medicine Name Role Phone Khadra Romo MD Primary Care Provider [phone] Pcp, Unknown Unavailable Unavailable John Chopra MD Unavailable [phone] Lenny Pendleton MD Unavailable Encounter Details Date Type Department Care Team (Late st Contact Info) Description 11/22/2022 Procedure Pass [facility], [address] [address] Social History Tobacco Use Types Packs/Day Years [...] high school, GED, job training, learning the Congolese language, technical skills, or developing parenting skills)? [...] [facility] Endoscopy Admitting Dept Virtual Department [address] [place] [id number] 03/01/2025 9:30 AM EDT Hospital Encounter [facility]mitting [facility] Virtual Department [address] [place] [address] Shai Ayon MD [address] [place] [id number] 03/01/2025 9:30 AM EDT - 03/01/2025 10:00 AM EDT Surgery [facility] Endoscopy Admitting Dept Virtual Department [address] [place] [address] Shai Ayon MD [address] [facility] 2 [place] [address] [email or web address] COLONOSCOPY 03/15/2025 3:00 PM EST Office Visit [facility] Department of Neurology [address] [facility], 8th [address], [address] [place] [address] Luanne Rodríguez MD [address] [facility] [address] [place] [address] [email or web address] 04/10/2025 11:00 AM EST Office Visit [facility] Neurology Neuromuscular [place] [address] [facility], [address] [place] [address] Lenny Pendleton MD [address] [facility] [address] [place] [address] [email or web address] 06/09/2025 1:00 PM EST Office Visit [facility] Department of Neurology [address] [facility], 8th [address], [address] [place] [address] John Chopra MD [address] [facility] 8[address] [place] [phone] [email or web address] 07/21/2025 8:40 AM EDT Office Visit [facility] [address] [facility] [address] [place] [address] Khadra Romo MD 15 [facility]. [address] [place] [address] [email or web address] 08/25/2025 11:00 AM EDT Office Visit [facility] Cardiology [facility] [address] [facility], [address] [place] [address] Clemetnine Brower MD [address] [place] [address] [email or web address] Scheduled Procedures Name Priority Associated [...] documented as of this encounter Care Teams Doctor Of Naturopathic Medicine Relationship Specialty Start Date End Date Khadra Romo MD [address] [address] [email or web address] PCP - General Family Medicine 06/12/21 Pcp, Unknown 01/28/21 06/16/23 John Chopra MD [address] [place] [address] [address] [place] [phone] [email or web address] [email or web address] 06/17/23 Lenny Pendleton MD [address] [place] [address] 820 [place] [address] [email or web address] [email or web address] 06/17/23 documented as of this encounter Additional Source Comments The information contained in this document represents components of the legal health record. It is not the complete legal health record.[facility]
--- OUTSIDE RECORDS SUMMARY | 2025-02-19 03:41 | XMS_ITS | Encounter Summary ---
Author Organization [facility] Address [address] [facility] [address] [place] [address] Phone Care Team Providers Care Hospital Admissions Clerk Name Role Phone Khadra Romo MD Primary Care Provider [phone] John Chopra MD Unavailable [phone] Rai Pendleton-Alonzo Zelaya MD Unavailable Encounter Details Date Type Department Care Team (Late st Contact Info) Description 01/21/2024 Transcribe Orders [facility] Specimen Processing 30 [place] [address] Khadra Romo MD 15 [facility] [place] [address] Social History Tobacco Use Types Packs/Day Years [...] high school, GED, job training, learning the Swedish language, technical skills, or developing parenting skills)? [...] Pass [facility] Endoscopy Admitting Dept Virtual Department [address] [place] [address] 03/01/2025 9:30 AM EDT Hospital Encounter [facility] Endoscopy Admitting Dept Virtual Department [address] [place] [address] Shai Ayon MD 10 [facility] 2 [place] [address] 03/01/2025 9:30 AM EDT - 03/01/2025 10:00 AM EDT Surgery [facility] Endoscopy Admitting Dept Virtual Department [address] [place] [address] Shai Ayon MD [address] [address] [email or web address] COLONOSCOPY 03/15/2025 3:00 PM EST Office Visit [facility] Department of Neurology [address] [facility], 8th Floor, [address] [place] [address] Luanne Rodríguez MD [facility] [address] [place] [address] [email or web address] 04/10/2025 11:00 AM EST Office Visit [facility] Neurology Neuromuscular [address], [address] [place] [address] Lenny Pendleton MD [address] [facility] [address] [place] [address] [email or web address] 06/09/2025 1:00 PM EST Office Visit [facility] Department of Neurology [address] [facility], 8th Floor, [address] [place] [address] John Chopra MD [address] [place] [phone] [email or web address] 07/21/2025 8:40 AM EDT Office Visit [facility] 15 [facility] 201 [place] [address] Khadra Romo MD [address] [address] 08/25/2025 11:00 AM EDT Office Visit [facility] Cardiology [facility] [address] [facility], [address] [place] [address] Clementine Brower MD 40 [facility], [address] [place] [phone] [email or web address] Scheduled Procedures Name Priority Associated [...] documented as of this encounter Care Teams Hospital Admissions Clerk Relationship Specialty Start Date End Date Khadra Romo MD [address] [address] PCP - General Family Medicine 06/12/21 John Chopra MD [address] [place] [phone] [email or web address] Neurology 06/17/23 Lenny Pendleton, MD 165 [facility] [address] [place] [id number] [email or web address] [email or web address] 06/17/23 documented as of this encounter Additional Source Comments The information contained in this document represents components of the legal health record. It is not the complete legal health record.[facility]
--- OUTSIDE RECORDS SUMMARY | 2025-02-19 03:41 | XMS_ITS | Encounter Summary ---
Author Organization [facility] Address [address] [place] [phone] Phone Care Team Providers Care Director Network Development Name Role Phone Khadra Romo MD Primary Care Provider [phone] John Chopra MD Unavailable [phone] Lenny Pendleton MD Unavailable Encounter Details Date Type Department Care Team (Late st Contact Info) Description 05/27/2024 Procedure Pass [facility] PERIOPERATIVE DEPT [address] [place] [phone] Social History Tobacco Use Types Packs/Day Years [...] high school, GED, job training, learning the [place] language, technical skills, or developing parenting skills)? [...] 1:00 PM EST Vonnie Blackmon RN * Wright Suicide Severity Rating Scale (Screener/Recent Self-Report) Question [...] Info) Description 03/01/2025 Procedure Pass [facility] Endoscopy Admitting Dept Virtual Department [address] [place] [phone] 03/01/2025 9:30 AM EDT Hospital Encounter [facility] Endoscopy Admitting Dept Virtual Department [address] [place] [address] Shai Ayon MD [address] [address] [email or web address] 03/01/2025 9:30 AM EDT - 03/01/2025 10:00 AM EDT Surgery [facility] Endoscopy Admitting Dept Virtual Department [address] [place] [address] Shai Ayon MD [address] [address] COLONOSCOPY 03/15/2025 3:00 PM EST Office Visit [facility] Department of Neurology [address] [place] [address], 8th Floor, [address] [place] [address] Luanne Rodríguez MD [address] [place] [address] [address] [place] [address] [email or web address] 04/10/2025 11:00 AM EST Office Visit [facility] Neurology Neuromuscular [place] [address] [facility], [address] [place] [address] Lenny Pendleton MD [address] [facility] [address] [place] [address] [email or web address] 06/09/2025 1:00 PM EST Office Visit [facility] Department of Neurology [address] [place] [address], 8th Floor, [address] [place] [address] John Chopra MD 55 [facility] [address] [place] [phone] [email or web address] 07/21/2025 8:40 AM EDT Office Visit [facility] [place] [facility] [address] [facility] [address] [place] [address] Khadra Romo MD 15 [facility] [address] [place] [address] [email or web address] 08/25/2025 11:00 AM EDT Office Visit [facility] Cardiology [facility] [address] [facility], [address] [place] [address] Clementine Brower MD [address] [facility], [address] [place] [address] [email or web address] Scheduled Procedures Name Priority Associated Diagnoses Date/Ti ky COLONOSCOPY Screen for colon cancer 03/01/2025 9:30 AM EDT documented as of this encounter Visit Diagnoses Not on filedocumented in this encounter Additional Health Concerns Assessment Noted Time PHQ-9 Depression Total Score: 12 024 3:46 PM EST PHQ-2 Depression Total Score: 4 06/23/19 24 11:49 PM EST documented as of this encounter Care Teams Director Network Development Relationship Specialty Start Date End Date Khadra Romo MD 15 [facility] [address] [place] [address] [email or web address] PCP - General Family Medicine 06/12/21 John Chopra MD [address] [place] [address] [place] [phone] [email or web address] 06/17/23 Lenny Pendleton MD 165 [facility] [address] [place] [address] [email or web address] 06/17/23 documented as of this encounter Additional Source Comments The information contained in this document represents components of the legal health record. It is not the complete legal health record.[facility]
--- OUTSIDE RECORDS SUMMARY | 2025-02-19 03:41 | XMS_ITS | Encounter Summary ---
Author Organization [facility] Address [address] [facility] [address] [place] [phone] Phone Care Team Providers Care It Security Manager Name Role Phone Khadra Romo MD Primary Care Provider [phone] John Chopra MD Unavailable [phone] Lenny Pendleton MD Unavailable Encounter Details Date Type Department Care Team (Late st Contact Info) Description 11/10/2023 Procedure Pass [facility], [address] [address] Social History Tobacco Use Types Packs/Day Years [...] high school, GED, job training, learning the Occitan language, technical skills, or developing parenting skills)? [...] Pass [facility] Endoscopy Admitting Dept Virtual Department [address] [place] [address] 03/01/2025 9:30 AM EDT Hospital Encounter [facility] Endoscopy Admitting Dept Virtual Department [address] [place] [address] Shai Ayon MD [address] [address] [email or web address] 03/01/2025 9:30 AM EDT - 03/01/2025 10:00 AM EDT Surgery [facility] Endoscopy Admitting Dept Virtual Department [address] [place] [address] Shai Ayon MD [address] [address] [email or web address] COLONOSCOPY 03/15/2025 3:00 PM EST Office Visit [facility] Department of Neurology [address] [facility], 8th Floor, [address] [place] [address] Luanne Rodríguez MD 55 [facility] [address] [place] [address] [email or web address] 04/10/2025 11:00 AM EST Office Visit [facility] Neurology Neuromuscular [address], [address] [place] [address] Lenny Pendleton MD 165 [facility] [address] [place] [address] [email or web address] 06/09/2025 1:00 PM EST Office Visit [facility] Department of Neurology [address] [facility], 8th Floor, [address] [place] [address] John Chopra MD 55 [facility] [address] [place] [phone] [email or web address] 07/21/2025 8:40 AM EDT Office Visit [facility] [place] [facility] [address] [facility] [address] [place] [address] Khadra Romo MD 15 [facility]. [address] [place] [address] 08/25/2025 11:00 AM EDT Office Visit [facility] Cardiology [facility] [address] [facility], [address] [place] [address] Clementine Brower MD 40 [facility], [address] [place] [phone] [email or web address] Scheduled Procedures Name Priority Associated Diagnoses Date/Ti me COLONOSCOPY Screen for colon cancer 03/01/2025 9:30 AM EDT documented as of this encounter Visit Diagnoses Not on filedocumented in this encounter Additional Health Concerns Assessment Noted Time PHQ-9 Depression Total Score: 12 024 3:46 PM EST PHQ-2 Depression Total Score: 4 06/23/19 24 11:49 PM EST documented as of this encounter Care Teams It Security Manager Relationship Specialty Start Date End Date Khadra Romo MD 15 [facility] [address] [place] [address] [email or web address] PCP - General Family Medicine 06/12/21 John Chopra MD [address] [place] [address] [address] [place] [phone] [email or web address] Neurology 06/17/23 Rai Pendleton-Alonzo Zelaya MD [address] [place] [address] [address] [place] [address] [email or web address] 06/17/23 documented as of this encounter Additional Source Comments The information contained in this document represents components of the legal health record. It is not the complete legal health record.[facility]
--- OUTSIDE RECORDS SUMMARY | 2025-02-19 03:41 | XMS_ITS | Clinical Summary ---
Author Organization [facility] Address [address] [employer] [address] [address] Phone Care Team Providers Care Lapeler Name Role Phone Khadra Romo MD Primary Care Provider [phone] John Chopra MD Unavailable [phone] Rai Pendleton-Alonzo Zelaya MD Unavailable Allergies No known active allergies Medications lamoTRIgine (LAMICTAL) 200 MG IMMEDIATE release tablet Take 200 mg by mouth. 300 mg in the morning and 200 mg bedtime 5 Active sildenafiL (VIAGRA) 100 mg tablet Take 1 tablet (100 mg total) by mouth daily as needed. 30 tablet 2 4 Active melatonin [address] 1 [...] 80 mg by mouth nightly at bedtime. 5 Active omeprazole (PRILOSEC) 20 MG capsule Take 1 capsule by mouth 2 (two) times a day. Active ibuprofen (ADVIL,MOTRIN) 800 MG tablet Take 800 mg by mouth 3 (three) times a day. Active omeprazole (PRILOSEC) 40 MG capsule Take 40 mg by mouth daily. Active apixaban (ELIQUIS) 5 mg tablet Take 5 mg by mouth 2 (two) times a day. Active azithromycin (ZITHROMAX) 250 MG tablet Take 250 mg by mouth daily. Active doxycycline hyclate (DORYX) 100 MG tablet Take 100 mg by mouth 2 (two) times a day. Active dextroamphetamine -amphetamine (ADDERALL) 20 mg Tab tablet Take 1 tablet by mouth 2 (two) times a day. 02/11/20 Discontinu ed(No CancelRX) lovastatin (MEVACOR) 20 MG tablet Take 1 tablet (20 mg total) by mouth nightly at bedtime. 90 tablet 3 5 01/28/20 Discontinu ed(No longer taking) aspirin 81 mg chewable tablet Take 81 mg by mouth daily. 02/11/20 Discontinu ed(No CancelRX) Active Problems Problem Noted Date Diagnosed Date Atrial fibrillation with RVR 02/10/2025 Assessment & Plan (02/10/2025 3:22 PM EDT): I discussed the pathophysiology of A-fib and its natural history (paroxysmal versus permanent) and potential adverse outcomes. Although there is no way to know what happened in the past, I do wonder if his A-fib started earlier and was the causative agent for his recent stroke - Discussed potential need for rhythm control agents if rate control medications are not tolerated due to impact on blood pressure. - Currently on Eliquis to prevent another stroke. Holter monitor will help to identify A-fib burden and whether indefinite anticoagulation may be indicated. I do not have any particular reason to suspect this is only a temporary condition. - Appointment with associate school psychologist on 02/20/2025 for further evaluation, including blood work, echocardiogram, and Holter monitor. Discussed that ablation can sometimes obviate the need for rate or rhythm control agents. If blood thinners are not tolerated or safe (in light of his regular falls), a Watchman procedure may be indicated. I encouraged him to speak with his associate school psychologist about whether these procedures may be appropriate or indicated for him, and explained that the timeline for these would not be quick. Pneumonia of left lower lobe due to infectious o rganism 02/10/2025 Assessment & Plan (02/10/2025 3:22 PM EDT): - Prescribed antibiotics to be filled today. - Avoid strenuous activities such as hiking until fully recovered. Advised to expect that full recovery may take several weeks. Ischemic stroke of frontal lobe 01/27/2025 Overview (01/27/2025): L frontal lobe, presented with R arm weakness, cognitive impairment. Sx resolved w/in few hours Assessment & Plan (02/10/2025 3:22 PM EDT): - Ref[place] [facility] [place] appointment on 03/15/2025. - Emphasized importance of managing atrial fibrillation to prevent further cerebrovascular events. - Continuation of Eliquis to prevent another stroke. Assessment & Plan (01/27/2025 2:48 PM EDT): Reports no residual deficits now and had none at time of hospital discharge. Continue baby aspirin, aggressive statin therapy. Referred to neurologist Dr. Jimenes at [facility], whom patient has seen before. Recommend discussing an alert button with his local other services organization Orders: External Referral to Neurology ([facility]) Acute idiopathic [...] for him to see Dr. Brower in [place] Cervical myelopathy 05/27/2024 Assessment & Plan (01/12/2025 [...] future, such as a planned trip to [place] that he mentioned, he should make his [...] Encounters Date Type Department Care Team Description 02/10/2025 10:40 AM EDT Office Visit [facility] [address] [place] [address] [address] [place] [address] Khadra Romo MD Atrial fibrillation with RVR (Primary Dx); Ischemic stroke of frontal lobe; Pneumonia of left lower lobe due to infectious organism 02/10/2025 Orders Only [address] [place] [address] Ramona Rodriguez MD 02/09/2025 9:47 AM EDT - 02/09/2025 11:59 PM EDT Hospital Encounter [facility] [address] [place] [address] Khadra Romo MD Discharge Disposition: Home or Self Care 02/07/2025 Telephone [facility] [address] [place] [address] Khadra Romo MD TCM Visit ([facility] + Unable to Schedule) 02/03/2025 Telephone [facility] [address] [place] [address] [address] [place] [address] Khadra Romo MD Chest Pain 02/03/2025 Orders Only [address] [place] [address] Ramona Rodriguez MD 02/02/2025 Orders Only [facility] Department of Neurology [address] [facility], 8th Floor, [address] [place] [address] Debra Stapleton RN REM sleep behavior disorder (Primary Dx) 01/27/2025 11:20 AM EDT Office Visit [facility] [address] [place] [address] Khadra Romo MD Ischemic stroke of frontal lobe (Primary Dx); Orthostatic hypotension; Acute idiopathic pericarditis 01/19/2025 Telephone [facility] [address] [place] [address] Kelley Rubio TCM Visit 01/18/2025 Orders Only [facility] [address] [place] [address] Unknown, Unknown, 01/17/[address] [place] [address] Khadra Romo MD [place] Sudden Altered mental status 01/16/2025 Telephone [facility] [address] [place] [address] Maddison Irizarry CNP Patient Returned Call 01/16/2025 Orders Only [facility] [address] [place] [address] Unknown, Unknown, 01/12/2025 10:40 AM EDT Telemedicine [facility] [address] [place] [address] Khadra Romo MD Hypermagnesemia (Primary Dx); Parkinsonism, unspecified Parkinsonism type; Cervical myelopathy 12/23/2024 Telephone [facility] [address] [place] [address] Khadra Romo MD Labs Only 12/20/2024 1:30 PM EDT Office Visit [facility] [address] Floor, [address] [place] [address] Laura Ayala CNP Orthostatic hypotension (Primary Dx); Lightheadedness; Cold feet 12/08/2024 3:30 PM EDT Telemedicine [facility] Department of Neurology [address] [facility], 8th Floor, [address] [place] [address] John Chopra MD Dysautonomia (Primary Dx); Cognitive decline; Restless leg syndrome; REM sleep behavior disorder; Orthostatic hypotension 11/24/2024 Orders Only [facility] [address] [place] [address] Unknown, Unknown, 11/22/2024 7:40 AM EDT - 11/22/2024 11:59 PM EDT Hospital Encounter [facility] [address] 3rd [place] [address] Aryan Perry MD Discharge Disposition: Home or Self Care from Last 3 Months Immunizations Immunization Administration Dates Next Due [id number] FORMULATION 05/28/2009 Hepatitis A, Adult 08/19/2023 Hepatitis [...] Sign Reading Time Taken Comments Blood Pressure 128/66 02/10/2025 10:34 AM EDT Pulse 66 02/10/2025 10:34 AM EDT Temperature 36.3 C (97.3 F) 01/27/2025 11:26 AM EDT Respiratory Rate 14 06/10/2024 3:15 AM EST Oxygen Saturation 98% 02/10/2025 10:34 AM EDT Inhaled Oxygen Concentration - - Weight 80.4 kg (177 lb 3.2 oz) 01/27/2025 11:26 AM EDT Height 182.9 cm (6' 0.01 ) 12/20/2024 1:25 PM ED T Body Mass Index 24.03 12/20/2024 1:25 PM EDT Plan of Treatment Upcoming Encounters Date Type Department Care Team (Late st Contact Info) Description 03/01/2025 Procedure Pass [facility] Admitting Dept Virtual Department [address] [place] [address] 03/01/2025 9:30 AM EDT Hospital Encounter [facility] Admitting Dept Virtual Department [address] [place] [address] Shai Ayon MD 10 [facility] 2 [place] [address] [email or web address] 03/01/2025 9:30 AM EDT - 03/01/2025 10:00 AM EDT Surgery [facility] Admitting Dept Virtual Department [address] [place] [address] Shai Ayon MD [address] [address] [email or web address] COLONOSCOPY 03/15/2025 3:00 PM EST Office Visit [facility] Department of Neurology [address] [place] [address], 8th Floor, [address] [place] [address] Luanne Rodríguez MD [address] [place] [address] [email or web address] 04/10/2025 11:00 AM EST Office Visit [facility] Neurology Neuromuscular [address], [address] [place] [address] Lenny Pendleton MD [address] [place] [address] [address] [place] [address] [email or web address] 06/09/2025 1:00 PM EST Office Visit [facility] Department of Neurology [address] [place] [address], 8th Floor, [address] [place] [address] John Chopra MD [address] [place] [address] [address] [place] [phone] [email or web address] 07/21/2025 8:40 AM EDT Office Visit [facility] [address] [facility] [address] [place] [address] Khadra Romo MD 15 [facility] [address] [place] [address] [email or web address] 08/25/2025 11:00 AM EDT Office Visit [facility]iology [facility] [address] [facility], [address] [place] [address] Clementine Brower MD [address] [place] [address] [email or web address] Scheduled Procedures Name Priority Associated Diagnoses Date/Ti me COLONOSCOPY Screen for colon cancer 03/01/2025 9:30 AM EDT Health Maintenance Due Date Last Done Comments COLOGUARD 09/14/1999 COLONOSCOPY 09/14/1999 COLORECTAL CANCER SCREENING 09/14/1999 FIT TEST 09/14/1999 FOBT 09/14/1999 SIGMOIDOSCOPY 09/14/1999 VIRTUAL COLONOSCOPY 09/14/1999 COVID-19 VACCINE ( season) 2025 01/27/2024, 02/18/2023, 03/05/2022, Additional history exists DEPRESSION SCREENING 06/28/2025 06/28/2024, 06/17/19 24 CREATININE LEVEL 02/09/2026 02/09/2025, , 05/28/2024, Additional history exists Adult Td,Tdap Booster 06/24/2033 [...] STATUS SCREENING (Once After 26 Yrs) Completed 02/10/2025 HIB VACCINES Aged Out No longer eligi ble based on patient's age to complete this topic MENINGOCOCCAL VACCINES (ACWY) Aged Out No longer eligible based on patient's age to complete this topic MENINGOCOCCAL VACCINES (B) Aged Out N o longer eligible based on patient's age to complete this topic Medical Devices Implanted Type Area Container Washer Machine Device Identifier Shelf Expiration Date Model / Serial / Lot Cranial Plate [id number] 20 Hole Bone Mandibular Trauma Adaption Straight Titanium - [id number] Implanted:Qty: 1 on 05/27/2024 by Margoth Velásquez MD at [facility] N/A: Posterior Cervical [employer] 449.020 / / Screw Bone 2x5mm Cortex Titanium Self Drilling Plusdrive Recess Single - [id number] Implanted:Qty: 3 on 05/27/2024 by Margoth Velásquez MD at [facility] N/A: Posterior Cervical [employer] [id number] / / Screw Bone 2x6mm Cranial Cortex Titanium Self Tapping Cruciform Recess Gold - [id number] Implanted:Qty: 8 on 05/27/2024 by Margoth Velásquez MD at [facility] N/A: Posterior Cervical [employer] [id number] / / Procedures Procedure Name Priority Date/Time Associated Diagnosis Comments OUTSIDE IMAGING Routine 02/09/2025 10:51 AM EDT BASIC METABOLIC PANEL Routine 02/09/2025 10:01 AM EDT Hypermagnesemia MAGNESIUM Routine 02/09/2025 10:01 AM EDT Hypermagnesemia PARATHYROID HORMONE (PTH) Routine 02/09/2025 10:01 AM EDT Hypermagnesemia OUTSIDE IMAGING Routine 02/02/2025 10:18 AM EDT OUTSIDE IMAGING Routine 01/17/2025 8:07 AM EDT OUTSIDE IMAGING Routine 01/14/2025 9:50 AM EDT OUTSIDE IMAGING Routine 01/14/2025 9:47 AM EDT US LOWER EXTREMITY ARTERIES (BEL) PHYSIO COMPLETE BILAT Routine 11/22/2024 8:09 AM EDT Pure hypercholesterolemia Orthostatic hypotension HEPATITIS C ANTIBODY, QUALITATIVE Routine 06/12/2021 8:53 AM EST Need for hepatitis C screening test from Last 3 Months or Most Recently Relevant to Health Maintenance Results * Outside Imaging Report Only (02/09/2025 10:51 AM EDT) us Historical Provider IMG XR CHEST Final Res ult * Parathyroid hormone (PTH) (02/09/2025 10:01 AM EDT) PARATHYROID HORMONE 42 15 - 65 pg/mL [facility] Blood 02/09/2025 10:0 1 AM EDT 02/09/2025 10:06 AM EDT Khadra Romo MD LAB BLOOD ORDERABLES Final R esult Performing Organization Address City/[facility]/ZIP Co de Phone Number [address] [address] * Magnesium (02/09/2025 10:01 AM EDT) Pathologist [facility] MAGNESIUM 2.2 1.6 - 2.6 mg/dL [facility] Blood 02/09/2025 10:0 1 AM EDT 02/09/2025 10:06 AM EDT Khadra Romo MD LAB BLOOD ORDERABLES Final R esult [address] [address] * (ABNORMAL) Basic metabolic panel (02/09/2025 10:01 AM EDT) SODIUM 138 133 - 146 mmol/L [facility] CHLORIDE 103 96 - 108 mmol/L [facility] POTASSIUM 4.1 3.3 - 5.1 mmol/L [facility] CO2 24 21 - 35 mmol/L [facility] BUN 15 6 - 19 mg/dL [facility] CREATININE 0.80 0.5 - 1.5 mg/dL [facility] GLUCOSE 104(H) 70 - 99 mg/dL [facility] CALCIUM 8.2(L) 8.4 - 10.3 mg/dL [facility] EGFR 95 >59 mL/min/1.7 3m2 [facility] Comment:Estimated glomerular filtration rate calculated using the CKD-EPI refit equation. ANION GAP 15 10 - 20 mmol/L [facility] Blood 02/09/2025 10:0 1 AM EDT 02/09/2025 10:06 AM EDT us Khadra Romo MD LAB BLOOD ORDERABLES Final R esult Performing Organization Address City/State/[facility] Co de Phone Number [address] [address] * Outside Imaging Report Only (02/02/2025 10:18 AM EDT) us Historical Provider IMG XR CHEST Final Res ult * Outside Imaging Report Only (01/17/2025 8:07 [...] CV US VASCULAR Final Resul t * Hepatitis C antibody, qualitative (06/12/2021 8:53 AM EST) HCV NON-REACTIV E NON-REACTI VE [facility] Blood 06/12/2021 8:53 AM EST 06/12/2021 8:54 AM EST us Khadra Romo MD LAB BLOOD ORDERABLES Final R esult [facility] [address] [place], [place] [id number] from Last 3 Months or Most Recently [...] Advance Directives For more information, please contact: [phone] (9AM - 5PM [facility], Thursday-Thursday) Documents on File Type Date Recorded 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 MOLST 06/29/2024 * Full Code (Latest Code Status on File) Date Activated Date Inactivated Comments 05/27/2024 11:53 AM Question Answer Comments Code Status Confirmed With: Other (specify below ) Code Discussion Comments: periop Care Teams Lapeler Relationship Specialty Start Date End Date Khadra Romo MD [address] [place] [address] PCP - General Family Medicine 06/12/21 John Chopra MD [address] [place] [phone] [email or web address] Neurology 06/17/23 KeerthiLenny suarez MD [address] [facility] [address] [place] [address] [email or web address] [email or web address] 06/17/23 Additional Source Comments The information contained in this document represents components of the legal health record. It is not the complete legal health record.[facility]
--- OUTSIDE RECORDS SUMMARY | 2025-02-19 03:41 | XMS_ITS | Encounter Summary ---
Author Organization [facility] Address [address] [facility] [address] [place] [address] Phone Care Team Providers Care High School Band Teacher Name Role Phone Khadra Romo MD Primary Care Provider [phone] John Chopra MD Unavailable [phone] Lenny Pendleton MD Unavailable Reason for Visit * Reason Onset Date Comments TCM Visit 01/19/2025 Encounter Details Date Type Department Care Team (Late st Contact Info) Description 01/19/2025 Telephone [employer] [facility] [address] [place] [address] Kelley [email or web address] TCM Visit Social History Tobacco Use Types [...] Summary: S/W Chilo, he was discharged from [facility] for CVA on 01/19. He is feeling well with no residual effects. Discharged with no services or devices but is advised to follow up with cardiology for pericarditis and neurology for CVA. He has a cardiology appointment but it isn't scheduled until August 2023, he is waiting to hear back from [facility] neurology re: appointment. He had several med changes including starting ASA and colchicine, changing statin, stopping Adderall and ibuprofen for the time being. He wasable to sisal picker all new medications and has no [...] date: 01/18/25 Discharge date: 01/19/25 Discharge from: [facility] Reason for hospitalization: CVA Discharge disposition: Home [...] review?: No Was the patient/caregiver able to sisal picker all new prescriptions?: Yes Does the [...] Management New Patient: YES/NO: no Hospitalization Name: [facility] Discharge Date: 01/19/25 Reason for Visit+ Diagnosis: [...] from discharge date Additional Note (if applicable): [facility] Call Center CSS Agent (Please do not reply to this user, as this inbox is not monitored. Thank you.) Thank you. documented in this encounter Plan of Treatment Upcoming Encounters Date Type Department Care Team (Late st Contact Info) Description 03/01/2025 Procedure Pass [facility] Admitting Dept Virtual Department [address] [place] [address] 03/01/2025 9:30 AM EDT Hospital Encounter [facility] Admitting Dept Virtual Department [address] [place] [address] Shai Ayon MD [address] [address] [email or web address] 03/01/2025 9:30 AM EDT - 03/01/2025 10:00 AM EDT Surgery [facility] Admitting Dept Virtual Department [address] [place] [address] Shai Ayon MD [address] [address] [email or web address] COLONOSCOPY 03/15/2025 3:00 PM EST Office [place] [facility] [place] of Neurology [address] [place] [address], 8th Floor, [address] [place] [address] Luanne Rodríguez MD [address] [place] [address] [facility] [address] [place] [address] [email or web address] 04/10/2025 11:00 AM EST Office Visit [facility] Neurology Neuromuscular [place] [address] [facility], [address] [place] [address] Lenny Pendleton MD 165 [facility] [address] [place] [address] [email or web address] 06/09/2025 1:00 PM EST Office Visit [facility] Department of Neurology [address] [place] [address], 8th Floor, [address] [place] [address] John Chopra MD 55 [facility] [address] [place] [phone] [email or web address] 07/21/2025 8:40 AM EDT Office Visit [facility] [address] [facility] [address] [place] [address] Khadra Romo MD [address] [facility] [address] [place] [address] [email or web address] 08/25/2025 11:00 AM EDT Office Visit [facility] [place] [address] [facility], [address] [place] [address] Clementine Brower MD [address] [place] [address] [email or web address] Scheduled Procedures Name Priority Associated Diagnoses Date/Ti id COLONOSCOPY Screen for colon cancer 03/01/2025 9:30 AM EDT documented as of this encounter Visit Diagnoses Not on filedocumented in this encounter Additional Health Concerns Assessment Noted Time PHQ-9 Depression Total Score: 12 06/17/2 024 3:46 PM EST PHQ-2 Depression Total Score: 1 06/28/19 25 2:08 PM EST documented as of this encounter Care Teams High School Band Teacher Relationship Specialty Start Date End Date Khadra Romo MD 15 [facility] [address] [place] [address] [email or web address] PCP - General Family Medicine 06/12/21 John Chopra MD [address] [place] [address] [place] [phone] [email or web address] [email or web address] 06/17/23 Lenny Pendleton MD 165 [facility] [address] [place] [address] [email or web address] [email or web address] 06/17/23 documented as of this encounter Additional Source Comments The information contained in this document represents components of the legal health record. It is not the complete legal health record.[facility]
--- OUTSIDE RECORDS SUMMARY | 2025-02-19 03:42 | XMS_ITS | Encounter Summary ---
Author Organization [facility] Address [address] [facility] [address] [place] [phone] Phone Care Team Providers Care Dimethylaniline Sulfator Operator Name Role Phone Khadra Romo MD Primary Care Provider John Chopra MD Unavailable [phone] Rai Pendleton-Alonzo Zelaya MD Unavailable Encounter Details Date Type Department Care Team (Late st Contact Info) Description 01/18/2025 Orders Only [facility] [place] [address] Unknown, Unknown, Social History Tobacco Use Types [...] [facility] Endoscopy Admitting Dept Virtual Department [address] [place] [address] 03/01/2025 9:30 AM EDT Hospital Encounter [facility] Admitting [facility] Virtual Department [address] [place] [address] Shai Ayon MD 10 [facility] 2 [place] [address] [email or web address] 03/01/2025 9:30 AM EDT - 03/01/2025 10:00 AM EDT Surgery [facility] Endoscopy Admitting Dept Virtual Department [address] [place] [address] Shai Ayon MD 10 [facility] 2 [place] [address] [email or web address] 03/15/2025 3:00 PM EST Office Visit [facility] Department of Neurology [address] [facility], 8th Floor, [address] [place] [address] Luanne Rodríguez MD 55 [facility] [address] [place] [address] [email or web address] 04/10/2025 11:00 AM EST Office Visit [facility] Neurology Neuromuscular [address], [address] [place] [address] Lenny Pendleton MD [address] [facility] [address] [place] [address] [email or web address] 06/09/2025 1:00 PM EST Office Visit [facility] Department of Neurology [address] [facility], 8th Floor, [address] [place] [address] John Chopra MD [address] [place] [phone] [email or web address] 07/21/2025 8:40 AM EDT Office Visit [facility] [address] [facility] [address] [place] [address] Khadra Romo MD [address] [facility] [address] [place] [address] 08/25/2025 11:00 AM EDT Office Visit [facility] Cardiology [facility] [address] [facility], [address] [place] [address] Clementine Brower MD 40 [facility], [address] [place] [address] [email or web address] Scheduled Procedures Name Priority Associated [...] documented as of this encounter Care Teams Dimethylaniline Sulfator Operator Relationship Specialty Start Date End Date Khadra Romo MD [address] [facility] [address] [place] [address] PCP - General Family Medicine 06/12/21 John Chopra MD [address] [place] [address] [place] [phone] [email or web address] 06/17/23 Lenny Pendleton MD [address] [place] [address] [address] [place] [address] [email or web address] 06/17/23 documented as of this encounter Additional Source Comments The information contained in this document represents components of the legal health record. It is not the complete legal health record.[facility]
--- OUTSIDE RECORDS SUMMARY | 2025-02-19 03:42 | XMS_ITS | Data Portability ---
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 Plan of Treatment Reminders Order Date Submit Date Provider Last Modified By Organization Details Last Modified Time Details Appointments None recorded. Lab lipid panel, serum 2017 018 [id number], [address] [place], [address], 8 22:33:50 ALT (alanine aminotrans ferase), serum or plasma 2017 018 [id number], [address] [place], [address], 8 22:33:47 AST/SGOT (aspartate aminotrans ferase), serum or plasma 2017 018 [id number], [address] [place], [address], 8 22:33:48 BMP, serum or plasma 2017 018 [id number], [address] [place], [address], 8 22:33:49 Referral general surgeon referral 2018 019 martina [facility], [address], [address], [place], [address], 9 16:06:43 general surgeon referral - pt wants lipoma removed from upper back 2017 018 rosanne Cronin MD, [address], [address], [place], [address], 8 15:30:07 general surgeon referral - pt has lipoma on left interspina l area and wants it removed 2016 017 rosanne Cronin MD, [address], [address], [place], [address], 7 10:01:34 neurologis t referral - pt notes worsening sx in terms of plantar feet sensitivit y/ and he has noted balance problems/ pt wants to know if he has any other options like Phys tx 2016 017 martina Stephens MD, [address] [place] [address] Dr, [facility] [address], [address], 7 19:42:45 Procedures None recorded. Surgeries None recorded. Imaging None recorded. Medication Orders tadalafil 20 mg tablet 2018 019 [id number], [address] [place], [place], [id number], 9 09:37:27 lovastatin 20 mg tablet 2018 019 [id number], [address] [place], [place], [id number], 9 09:37:27 Bactrim DS 800 mg-160 mg tablet 2017 018 [id number], [address] [place], [place], [id number], 9 08:43:15 Bactrim DS 800 mg-160 mg tablet 2016 017 [facility] 3, [address] [place] [address], [address], 9 08:43:15 Patient TargetsNo targets recorded. Patient Instructions Encounter Date Encounter Id Patient Instructions Last Modified By Organization Details Last Modified Time 08/22/2016 [id number] Medications (OTC, herbal therapies, supplements) reviewed and reconciled with patient and or caregiver, including potential side effects, drug interactions, instructions, and the consequences of not taking medication. Reviewed potential barriers to medication adherence, such as side effects from medication or cost of medication. claritza Not available 08/22/2016 15:01:07 01/28/2017 [id number] rec. take probiotic supplement or south korean yogurt while on abx pmadden Not available 01/28/2017 10:16:38 Follow up if no improvement or if symptoms worsen. I have reviewed the note and agree with the assessment and plan of care. arslan Not available 01/28/2017 10:39:29 04/09/2018 [id number] sitz bath info awychowski Not available 04/09/2018 09:50:36 skin abscess: care instructions awychowski Not available 04/09/2018 09:50:36 cellulitis: care instructions awychowski Not available 04/09/2018 09:50:36 Please apply a warm compress for 20min 4 times daily. awychowski Not available 04/09/2018 09:53:48 05/31/2018 [id number] Medications (OTC, herbal therapies, supplements) reviewed and [...] CIENT IN VITAM IN D. Refer ence: [facility] Data Brief : No.59 July: Vitam in [...] Go To The Location Of Their Choice, [id number] 05/25/2018 17:13:35 05/25/1905/25/2018 lipid panel , serum [...] cient in vitam in D. Refer ence: [facility] Data Brief : No.59 July: Vitam in D Statu s: [place]ite [place] s: [id number] As of , Vitam in D, 25-Hy droxy assay has been [facility]. In some [facility], the new assay may yield a highe r value (up to 15% incre ase) in dinorah rison to the old assay . These incre ases would mainl y be notic eable at value s of great er than 50 ng/ml . Not Available [facility] (Centralized Electronic Ordering - All Locations) Patient Can Go To The Location Of Their Choice, [id number] 05/25/2018 17:17:43 05/25/1905/25/2018 HbA1c (hemo globi n [...] Go To The Location Of Their Choice, [id number] 05/25/2018 20:55:44 05/25/1905/26/2018 hepat itis C virus Ab, serum anti-hepatit is C NEGAT ANAM Refer ence range : Negat anam This test was perfo rmed on the Abbot t Archi tect immun oassa y syste m. Not Available [facility] (Centralized Electronic Ordering - All Locations) Patient Can Go To The Location Of Their Choice, [id number] 05/26/2018 08:07:52 08/26/19 17 08/16/2016 XR, cervi kerry spine No observ ation record ed. [email or web address] [facility] [address] , [place], [address], 08/25/2016 12:27:16 Result Notes None recorded. 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 Liseth regalado [facility] 6 09:16:08 Infectiv e hepatiti s immuniza tion Completed 200811/15/2013 RECORDED 05/24/19 09 9:24AM BY DAYNA RIOS, NURSE VISIT Liseth regalado [facility] 6 09:16:09 Infectiv e hepatiti s immuniza tion Completed 200812/08/2013 RECORDED 05/24/19 09 9:24AM BY DAYNA RIOS, NURSE VISIT Liseth regalado [facility] 6 09:16:09 Infectiv e hepatiti s immuniza tion Completed 200812/09/2013 RECORDED 05/24/19 09 9:24AM BY DAYNA RIOS, NURSE VISIT Liseth regalado [facility] 6 09:16:09 Influenz a vaccine needed 47938328929 06 Completed 200811/15/2013 RECORDED 10/19/19 09 10:09AM BY RICKI GORDILLO MD, ANNOTATI ON/ADDEN DUM Liseth regalado [facility] 6 09:16:08 General examinat ion of patient Completed 200811/15/2013 RECORDED 10/19/19 09 10:09AM BY RICKI GORDILLO MD, ANNOTATI ON/ADDEN DUM Liseth Hooks null, [facility] 6 09:16:09 Influenz a vaccine needed [id number] 06 Completed 200812/08/2013 RECORDED 10/19/19 09 10:09AM BY RICKI GORDILLO MD, ANNOTATI ON/ADDEN DUM Liseth Hooks null, [facility] 6 09:16:08 General examinat ion of patient Completed 200812/08/2013 RECORDED 10/19/19 09 10:09AM BY RICKI GORDILLO MD, ANNOTATI ON/ADDEN DUM Liseth Hooks null, [facility] 6 09:16:09 Screenin g for malignan t neoplasm of colon Completed 200812/08/2013 RECORDED 10/19/19 09 10:09AM BY RICKI GORDILLO MD, ANNOTATI ON/ADDEN DUM Leslie Ervin [facility] 7 10:10:53 Influenz a vaccine needed [id number] 06 Completed 200812/09/2013 RECORDED 10/19/19 09 10:09AM BY RICKI GORDILLO MD, ANNOTATI ON/ADDEN DUM Liseth Hooks null, [facility] 6 09:16:09 General examinat ion of patient Completed 200812/09/2013 RECORDED 10/19/19 09 10:09AM BY RICKI GORDILLO MD, ANNOTATI ON/ADDEN DUM Liseth Hooks null, [facility] 6 09:16:09 Screenin g for malignan t neoplasm of colon Completed 200812/09/2013 RECORDED 10/19/19 09 10:09AM BY RICKI GORDILLO MD, ANNOTATI ON/ADDEN DUM Leslie Ervin MA null, [facility] 7 10:10:53 Hyperlip idemia 83745440 Completed 200911/15/2013 RECORDED 09/07/19 10 1:34PM BY ELIANE RIOS MA, ANNOTATI ON/ADDEN DUM Liseth Hooks null, [facility] 6 09:16:08 Acute upper respirat ory infectio n 71195796 Completed 201211/15/2013 RECORDED 07/31/19 13 9:55AM BY KENDRICK HIGHTOWER MA, ANNOTATI ON/ADDEN DUM Leslie Ervin MA null, [facility] 7 10:11:22 Chest pain 86981724 Completed 201211/15/2013 RECORDED 07/31/19 13 9:54AM BY KENDRICK HIGHTOWER MA, ANNOTATI ON/ADDEN DUM Liseth Hooks null, [facility] 6 09:16:08 Screenin g for malignan t neoplasm of colon Completed 201211/15/2013 RECORDED 07/31/19 13 9:55AM BY KENDRICK HIGHTOWER MA, ANNOTATI ON/ADDEN DUM Leslie Ervin MA null, [facility] 7 10:10:53 Risk of exposure to communic able disease 114195913 Completed 201211/15/2013 RECORDED 07/31/19 13 9:55AM BY KENDRICK HIGHTOWER MA, ANNOTLISA ON/ADDEN DUM Liseth Hooks null, [facility] 6 09:16:08 Dysuria 05718673 Completed 201211/15/2013 RECORDED 07/31/19 13 9:55AM BY KENDRICK HIGHTOWER MA, ANNOTATI ON/ADDEN DUM Liseth Hooks null, [facility] 6 09:16:08 Enthesop athy of knee 55235289 Completed 201211/15/2013 RECORDED 07/31/19 13 9:55AM BY KENDRICK HIGHTOWER MA, ANNOTATI ON/ADDEN DUM Liseth Hooks null, [facility] 6 09:16:08 Blood in urine 69181660 Completed 201211/15/2013 RECORDED 07/31/19 13 9:54AM BY KENDRICK HIGHTOWER MA, ANNOTATI ON/ADDEN DUM Liseth Hooks null, [facility] 6 09:16:08 Malaise and fatigue 881322339 Completed 201211/15/2013 RECORDED 07/31/19 13 9:55AM BY KENDRICK HIGHTOWER MA, ANNOTATI ON/ADDEN DUM Liseth Hooks null, [facility] 6 09:16:08 Administ ration of diphther ia and tetanus vaccine Completed 201211/15/2013 RECORDED 07/31/19 13 9:55AM BY KENDRICK HIGHTOWER MA, ANNOTATI ON/ADDEN DUM Liseth Hooks null, [facility] 6 09:16:09 Disorder of skin 58471647 Completed 201211/15/2013 RECORDED 07/31/19 13 9:55AM BY KENDRICK HIGHTOWER MA, ANNOTATI ON/ADDEN DUM Liseth Hooks null, [facility] 6 09:16:08 Sprain of spinal ligament 547404050 Completed 201211/15/2013 RECORDED 07/31/19 13 9:55AM BY KENDRICK HIGHTOWER MA, ANNOTATI ON/ADDEN DUM Liseth Hooks null, [facility] 6 09:16:08 Acute upper respirat ory infectio n 01990193 Completed 201212/08/2013 RECORDED 07/31/19 13 9:55AM BY KENDRICK HIGHTOWER MA, ANNOTATI ON/ADDEN DUM Leslie Bigby WILLY null, [facility] 7 10:11:22 Chest pain 98298195 Completed 201212/08/2013 RECORDED 07/31/19 13 9:54AM BY KENDRICK HIGHTOWER MA, ANNOTATI ON/ADDEN DUM Liseth Hooks null, [facility] 6 09:16:08 Risk of exposure to communic able disease 821969599 Completed 201212/08/2013 RECORDED 07/31/19 13 9:55AM BY KENDRICK HIGHTOWER MA, JEREMIAHATI ON/ADDEN DUM Liseth Hooks null, [facility] 6 09:16:08 Dysuria 39260278 Completed 201212/08/2013 RECORDED 07/31/19 13 9:55AM BY KENDRICK HIGHTOWER MA, ANNOTATI ON/ADDEN DUM Liseth Hooks null, [facility] 6 09:16:08 Enthesop athy of knee 70563322 Completed 201212/08/2013 RECORDED 07/31/19 13 9:55AM BY KENDRICK HIGHTOWER MA, ERMA ON/ADDEN DUM Liseth Hooks null, [facility] 6 09:16:08 Blood in urine 33788760 Completed 201212/08/2013 RECORDED 07/31/19 13 9:54AM BY KENDRICK HIGHTOWER MA, ERMA ON/ADDEN DUM Liseth Hooks null, [facility] 6 09:16:08 Malaise and fatigue 435803075 Completed 201212/08/2013 RECORDED 07/31/19 13 9:55AM BY KENDRICK HIGHTOWER MA, ERMA ON/ADDEN DUM Liseth Hooks null, [facility] 6 09:16:08 Administ ration of diphther ia and tetanus vaccine Completed 201212/08/2013 RECORDED 07/31/19 13 9:55AM BY KENDRICK HIGHTOWER MA, ERMA ON/ADDEN DUM Liseth Hooks null, [facility] 6 09:16:09 Disorder of skin 79260683 Completed 201212/08/2013 RECORDED 07/31/19 13 9:55AM BY KENDRICK HIGHTOWER MA, ANNOTATI ON/ADDEN DUM Liseth Hooks null, [facility] 6 09:16:08 Adult health examinat ion Completed 201212/08/2013 RECORDED 07/31/19 13 9:54AM BY KENDRICK HIGHTOWER MA, ANNOTATI ON/ADDEN DUM Leslie Ervin MA null, [facility] 7 10:10:49 Sprain of spinal ligament 785124610 Completed 201212/08/2013 RECORDED 07/31/19 13 9:55AM BY KENDRICK HIGHTOWER MA, ANNOTATI ON/ADDEN DUM Liseth Hooks null, [facility] 6 09:16:08 Acute upper respirat ory infectio n 45978967 Completed 201212/09/2013 RECORDED 07/31/19 13 9:55AM BY KENDRICK HIGHTOWER MA, ANNOTATI ON/ADDEN DUM Leslie Ervin MA null, [facility] 7 10:11:22 Chest pain 02813235 Completed 201212/09/2013 RECORDED 07/31/19 13 9:54AM BY KENDRICK HIGHTOWER MA, ERMA ON/ADDEN DUM Liseth Jessee null, [facility] 6 09:16:08 Risk of exposure to communic able disease 215277608 Completed 201212/09/2013 RECORDED 07/31/19 13 9:55AM BY KENDRICK HIGHTOWER MA, ANNOTATI ON/ADDEN DUM Liseth Hooks null, [facility] 6 09:16:08 Dysuria 76254112 Completed 201212/09/2013 RECORDED 07/31/19 13 9:55AM BY KENDRICK HIGHTOWER MA, ANNOTATI ON/ADDEN DUM Liseth Hooks null, [facility] 6 09:16:08 Enthesop athy of knee 12227699 Completed 201212/09/2013 RECORDED 07/31/19 13 9:55AM BY KENDRICK HIGHTOWER MA, ANNOTATI ON/ADDEN DUM Liseth Hooks null, [facility] 6 09:16:08 Blood in urine 30204896 Completed 201212/09/2013 RECORDED 07/31/19 13 9:54AM BY KENDRICK HIGHTOWER MA, ANNOTATI ON/ADDEN DUM Liseth Hooks null, [facility] 6 09:16:08 Malaise and fatigue 423758641 Completed 201212/09/2013 RECORDED 07/31/19 13 9:55AM BY KENDRICK HIGHTOWER MA, JEREMIAHATI ON/ADDEN DUM Lisethakshat Hooks null, [facility] 6 09:16:08 Administ ration of diphther ia and tetanus vaccine Completed 201212/09/2013 RECORDED 07/31/19 13 9:55AM BY KENDRICK HIGHTOWER MA, ERMA ON/ADDEN DUM Liseth Hooks null, [facility] 6 09:16:09 Disorder of skin 65849443 Completed 201212/09/2013 RECORDED 07/31/19 13 9:55AM BY KENDRICK HIGHTOWER MA, JEREMIAHATI ON/ADDEN DUM Liseth Hooks null, [facility] 6 09:16:08 Adult health examinat ion Completed 201212/09/2013 RECORDED 07/31/19 13 9:54AM BY KENDRICK HIGHTOWER MA, JEREMIAHATI ON/ADDEN DUM Leslie Ervin MA null, [facility] 7 10:10:49 Sprain of spinal ligament 081218374 Completed 201212/09/2013 RECORDED 07/31/19 13 9:55AM BY KENDRICK HIGHTOWER MA, ANNOTATI ON/ADDEN DUM Liseth Hooks null, [facility] 6 09:16:08 Cellulit is of digit 99593033 Completed 201211/15/2013 IMPRESSI ON: [place]. NEW RX SENT; RECORDED 01/12/20 13 3:25PM BY KENDRICK HIGHTOWER MA, ANNOTATI ON/ADDEN DUM Liseth Hooksakshat regalado, [facility] 6 09:16:08 Cellulit is of digit 08817146 Completed 201212/08/2013 IMPRESSI ON: [place] NEW RX SENT; RECORDED 01/12/20 13 3:25PM BY KENDRICK HIGHTOWER MA, ANNOTLISA ON/ADDEN DUM Liseth Hooks null, [facility] 6 09:16:08 Cellulit is of digit 69069144 Completed 201212/09/2013 IMPRESSI ON: [place]. NEW RX SENT; RECORDED 01/12/20 13 3:25PM BY KENDRICK HIGHTOWER MA, ANNOTATI ON/ADDEN DUM Liseth Hooksakshat regalado, [facility] 6 09:16:08 Conjunct ivitis 5815940 Completed 201211/15/2013 RECORDED 02/02/20 13 11:08AM BY INNA BURCH MA, ANNOTATI ON/ADDEN DUM Lisethakshat regalado [facility] 6 09:16:08 Benign prostati c hyperpla kaela 003447408 Active 2012 Lisethakshat regalado [facility] 6 09:16:09 Lower urinary tract symptoms 709369538 Completed 201205/16/2016 Leslie regalado [facility] 7 10:10:45 Adult health examinat ion Completed 201211/15/2013 RECORDED 02/02/20 13 11:07AM BY INNA BURCH MA, ANNOTATI ON/ADDEN DUM Leslie regalado [facility] 7 10:10:49 Hearing loss 22033892 Completed 201211/15/2013 RECORDED 02/02/20 13 11:08AM BY INNA BURCH MA, ANNOTATI ON/ADDEN DUM Leslie regalado, [facility] 7 10:10:31 Patient status finding 766661373 Completed 201211/15/2013 RECORDED 02/02/20 13 11:07AM BY INNA BURCH MA, ANNOTATI ON/ADDEN DUM Leslie regalado, [facility] 7 10:10:25 Acute upper respirat ory infectio n 36589879 Completed 201205/16/2016 IMPRESSI ON: NORMAL EXAM, REC. SYMPTOMA TIC TX, IBUPROFE N PRN PAIN. RTC IF PERSISTE NT OR WORSENIN G SYMPTOMS .; RECORDED 02/02/20 13 3:56PM BY BK PABLO PA-C, OFFICE VISIT Leslie regalado [facility] 7 10:11:22 Conjunct ivitis 9844002 Completed 201212/08/2013 RECORDED 02/02/20 13 11:08AM BY INNA BURCH MA, ANNOTATI ON/ADDEN DUM Liseth Jessee regalado [facility] 6 09:16:08 Conjunct ivitis 3644808 Completed 201212/09/2013 RECORDED 02/02/20 13 11:08AM BY INNA BURCH MA, ANNOTATI ON/ADDEN DUM Lisethakshat rgealado [facility] 6 09:16:08 Patient status finding 165096290 Completed 201305/16/2016 Leslie regalado [facility] 7 10:10:25 Depressi ve disorder 50241218 Active 2013 Leslie regalado [facility] 7 09:13:24 Urinary tract obstruct ion 3587392 Completed 201308/22/2016 Leslie regalado [facility] 7 09:13:25 Hyperlip idemia 44242690 Active 2013 Liseth regalado [facility] 6 09:16:09 Palpitat ions 42485402 Completed 201305/16/2016 Leslie regalado [facility] 7 10:11:12 Sciatica 41092121 Completed 201305/16/2016 STORY: RIGHT LEG PAIN/SAMANTHA ERABLE.; RECORDED 11/15/19 3:03PM BY INNA BURCH MA, OFFICE VISIT Leslie regalado [facility] 7 10:10:28 Vitamin D deficien cy 43221939 Active 2013 Liseth regalado [facility] 6 09:16:09 Screenin g for malignan t neoplasm of colon Completed 201305/16/2016 Leslie regalado [facility] 7 10:10:53 Adult health examinat ion Completed 201305/16/2016 Leslie regalado [facility] 7 10:10:49 Hearing loss 68683025 Completed 201305/16/2016 IMPRESSI ON: AUDIOMET RY ABNORMAL , HE WILL SELF REFER TO ENT; RECORDED 11/15/19 14 11:01PM BY MATTHEW LOVE, OFFICE VISIT Leslie regalado [facility] 7 10:10:31 Skin sensatio n disturba mne 40578030 Completed 201305/16/2016 Leslie regalado [facility] 7 10:11:16 Administ ration of diphther ia, pertussi s, and tetanus vaccine Completed 201305/16/2016 Leslie regalado [facility] 7 10:11:06 Ganglion and cyst of synovium , tendon and bursa Active 2013 Leslie Ervin MA [facility] 7 09:13:16 Primary erectile dysfunct ion 589968907 Active 2016 Damian JimMaiakenna blum [facility] 7 09:06:12 Problem Notes None recorded. Procedures Surgical History Date Name Laterality Status Provider Name and Address Organization Details Recorded Time 9 excision of lipoma of back completed Gloria Money [facility] 04/22/2019 10:32:24 5 Colonoscopy completed Juancarlos Millard PA-C [address] [address], [place], [id number], [facility] 05/31/2018 09:23:54 2 Prostate Surgery completed Lesliekristi Lorenzoisidro AGUILERA [facility] 05/16/2016 10:09:36 0 Cancer Surgery completed Leslie Ervin MA [facility] 05/16/2016 10:09:36 3 Orthopedic Surgery completed Lesliekristi Ervin MA [facility] 05/16/2016 10:09:36 Imaging Results None recorded. Procedure [...] REFILL REQUEST; THIS ORDER DISCONTI NUED PER [facility]. Not Available Not Available Not Available [...] Updated DateTime 8 182.88 cm 23.9 kg/m2 58588.9 6 g 99 % 99 % 72 /min 98.3 [degF] Leslie Ervin [facility] [place] 8 15:59:46 Date Recorded Body height Body mass index (BMI) Body weight Oxygen saturation Oxygen saturation in Arterial blood by Pulse oximetry Heart rate Body temperature Systolic And Diastolic Provider Name and Address Organization Details Last Updated DateTime 9 182.88 cm 24.4 kg/m2 87439.6 3 g 98 % 98 % 75 /min 97.1 [degF] 107/67 mm[Hg] Leslie Ervin [facility] 9 08:51:16 Date Recorded Body height Body weight Body mass index (BMI) Oxygen saturation Oxygen saturation in Arterial blood by Pulse oximetry Heart rate Body temperature Provider Name and Address Organization Details Last Updated DateTime 7 182.88 cm 05534.9 8 g 14.6 kg/m2 98 % 98 % 73 /min 98.1 [degF] Leslie Ervin [facility] 7 14:25:01 Date Recorded Body height Body mass index (BMI) Body weight Oxygen saturation Oxygen saturation in Arterial blood by Pulse oximetry Heart rate Body temperature Systolic And Diastolic Provider Name and Address Organization Details Last Updated DateTime 7 182.88 cm 23.4 kg/m2 94851.3 2 g 98 % 98 % 72 /min 97.4 [degF] 110/64 mm[Hg] [facility] 7 09:46:31 Date Recorded Body height Body mass index (BMI) Body weight Heart rate Body temperature Oxygen saturation Oxygen saturation in Arterial blood by Pulse oximetry Systolic And Diastolic Provider Name and Address Organization Details Last Updated DateTime 8 182.88 cm 24.4 kg/m2 73801.6 3 g 55 /min 97.1 [degF] 98 % 98 % 103/57 mm[Hg] Leny Herrera MA [facility] 8 09:15:56 Social History Question Answer Notes LastModified by Organizat ion Details LastModified Time Tobacco Smoking Status Never Smoker WILLY Alfredo [facility] 09/26/2014 16:35:57 Do You Have An [...] Diseases N Hyperthyroidism N Breast Cancer N Lung Disease N COPD N Depression Y Hypothyroidism N Defects or Inherited Disease N [...] Problems N GI Problems N Acne N Skin Problems N Eating Disorder N Anemia N Constipation N Bladder Problems N Mental Illness N Ovarian Cancer N Diabetes N Blood Transfusions N Seizures/Epilepsy N Tuberculosis N AIDS/HIV N Congestive Heart Failure (CHF) N Eczema N Diverticulitis N Abuse/Domestic Violence N Asthma N Allergies N Reflux/GERD N Hepatitis N Pulmonary Embolism N Hypertension N Osteoporosis N Chicken Pox N Autism Spectrum Disorder (ASD) N Immunizations Vaccine Type Date Status Note Provider Nam e and Address Organization Details Recorded Time Tdap 4 completed Not Available [facility] 12/15/2013 08:31:42 Td (adult) 6 completed Liseth Hooks null, [facility] 07/31/2014 11:00:07 zoster live 6 completed Liseth regalado [facility] 10/23/2015 09:16:09 Influenza, split virus, quadrivalent, preservative 8 completed WILLY Alfredo, [facility] 04/09/2018 09:14:42 Influenza, split virus, trivalent, preservative 7 completed Not Available [facility] 11/15/2013 13:23:27 Hep B, adult 8 completed Not Available [facility] 11/15/2013 13:23:27 Hep B, adult 8 completed Not Available [facility] 11/15/2013 13:23:27 Hep B, adult 9 completed Not Available [facility] 11/15/2013 13:23:27 Novel [id number] , all formulations 0 completed Not Available [facility] 11/15/2013 13:23:27 Past Encounters Encounter ID Performer Location Encounter Start Date Encounter Closed Date Diagnosis/Indication Diagnosis SNOMED-CT Code Diagnosis ICD10 Code Diagnosis IMO Codes Diagnosis Note [id number] [facility] [address] [facility] [place] [address] 12/18/2006 00:00:00 [id number] auto[facility] erce [address] [facility] [place] [address] 03/18/2007 00:00:00 [id number] auto[facility] erce [address] [facility] [place] [address] 04/07/2007 00:00:00 [id number] auto[facility] erce [address] [facility] [place] [address] 08/07/2008 00:00:00 [id number] auto[facility]Comm erce [address] [facility] [place] [address] 10/18/2008 00:00:00 [id number] auto[facility] erce [address] [facility] [place] [address] 09/06/2009 00:00:00 [id number] auto[facility] erce [address] [facility] [place], [place] [address] 09/10/2010 00:00:00 [id number] auto[facility] erce [address] [facility] [place], [place] [address] 07/14/2011 00:00:00 [id number] auto[facility] erce [address] [facility] [place], [place] [address] 10/13/2011 00:00:00 [id number] auto[facility] er[facility] [address] [facility] [place] [address] 07/30/2012 00:00:00 [id number] auto[facility] erce [address] [facility] [place], [place] [address] 01/11/2013 00:00:00 [id number] auto[facility]Comm erce [address] [facility] [place] [address] 02/01/2013 00:00:00 [id number] auto[facility]Comm erce [address] [facility] [place] [address] 11/14/2013 00:00:00 [id number] GUNNAR Horowitz Main Office [address] [address] [place] [address] 09/26/2014 16:26:37 09/26/2014 17:03:32 Impacted cerumen [id number] May use debrox or OTC equivalent weekly to prevent buildup of wax. Otitis externa [id number] Marnie tis externa left ear, ofloxacin as prescribed x 7-10 days, avoid swimming/ getting water in ear until sx have resolved. 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 see Dr Stephens note from last year [id number] Juancarlos Millard PA-C Main Office [address] [address] [place] [address] 01/28/2017 09:33:38 01/28/2017 10:22:47 Cellulitis of forearm 56942066 L03.114 mild but getting progressiv goldie slightly worse at 1 month out - no h/o DM - also has some occ pus dc - ? mrsa - will rx c bactrim as dir, f/u if no better [id number] Damian blum MD Main Office [address] [address] [place] [address] 05/28/2017 15:53:32 05/28/2017 16:42:45 Adult health examination 906237744 Z00.00 Hyperlipidemia 46546853 E78.5 Lipoma of back 896291958 D17.1 [id number] Clarke Estevez MD Main Office [address] [address] [place] [address] 04/09/2018 08:52:12 04/09/2018 09:49:35 Cellulitis and abscess of buttock 550447417 L02.31 Will cover for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
[2025-02-19 06:12] VITALS: BP 114/66; PULSE 69; RESP 17; TEMP 36.8; O2SAT 92
--- NOTE | 2025-02-19 06:42 | ED.GENADULT ---
HPI - General Adult General Chief complaint: General Medical Stated complaint: sob, vomting Time Seen by Provider: 02/19/25 06:07 Source: patient Mode of arrival: ambulatory Limitations: no limitations History of Present Illness ED Provider: HPI narrative: 69-year-old male past medical history significant for atrial flutter on Eliquis, recent CVA a month ago, pericarditis, Parkinson's disease, anxiety, depression, hyperlipidemia has had few ER visits since January, had a small stroke, then diagnosed with pericarditis without tamponade, and then presumptively treated for community-acquired pneumonia, presenting with as he reports shortness of breath and abdominal distention which is intermittent, continues to take colchicine. No fevers or chills at this time, no hematuria dysuria. No obstipation reported Related Data Home Medications ?Medication ?Instructions ?Recorded ?Confirmed colchicine 0.6 mg tablet 0.6 mg PO DAILY 01/17/25 02/03/25 lamotrigine 100 mg tablet 100 mg PO DAILY 01/17/25 02/03/25 lamotrigine 200 mg tablet 200 mg PO BID 01/17/25 02/03/25 (Lamictal) melatonin 5 mg disintegrating 5 mg PO BEDTIME PRN insomnia 01/17/25 02/03/25 tablet ropinirole 2 mg tablet 2 mg PO BEDTIME 02/03/25 02/03/25 Previous Rx's ?Medication ?Instructions ?Recorded atorvastatin 80 mg tablet 80 mg PO BEDTIME 30 days #30 tabs 01/19/25 apixaban 5 mg tablet 5 mg PO BID #60 tabs 02/06/25 ibuprofen 800 mg tablet 800 mg PO TID #42 tabs 02/06/25 omeprazole 40 mg capsule,delayed 40 mg PO DAILY@0630 #30 caps 02/06/25 release azithromycin 250 mg tablet 250 mg PO DAILY 4 days #4 tabs 02/10/25 doxycycline hyclate 100 mg tablet 100 mg PO BID #13 tabs 02/10/25 Allergies Allergy/AdvReac Type Severity Reaction Status Date / Time No Known Allergies Allergy Verified 02/19/25 01:19 Review of Systems Constitutional: Constitutional: Reports as per [facility] Past Medical History Medical History (Updated 02/19/25 @ 10:38 by Kumar Jensen, ) Chronic pericardial effusion Acute pericardial effusion Numbness and tingling Pericarditis Peripheral demyelinating neuropathy JACOB positive Orthostatic hypertension Restless legs syndrome CVA (cerebral vascular accident) Cognitive disorder Back pain Anxiety Depression Hyperlipidemia Non-melanoma skin cancer Surgical History H/O cervical spine surgery History of ear surgery Family History Family History Father Myocardial infarction Family/Other Cancer Family/Other Breast cancer Mother Skin cancer Social History Social History Household Members: Spouse Housing: House Do you presently have visiting nurse or other home services: Yes Alcohol intake: current Alcohol intake frequency: holidays/special occasions only Alcohol type: beer and hard liquor Comment: Pt declining bed alarm at this time. 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 ?PERRLA, EOMI, MMM, no scleral icterus ? Neck: Supple, no LAD ? ?CV: RRR, no obvious murmurs appreciated ? ?Resp: ?No wheezing rales rhonchi no stridor moving air well ? Abd: ?Bowel sounds are present, no tenderness no rebound no rigidity ? ?MSK: FROM, strength 5/5 all extremities ? Skin: Warm, dry, intact, no jaundice ? ?Neuro: ?Alert and oriented x3, moving upper and lower extremities symmetrically, no obvious facial asymmetry noted, cranial nerves 2-12 intact Medications Administered Discontinued Medications Generic Name Dose Route Start Last Admin Trade Name Rossy PRN Reason Stop Dose Admin Iohexol 100 ml 02/19/25 08:13 02/19/25 08:13 Iohexol 350 Mg/Ml 100 Ml Infus..Btl IV 02/19/25 08:14 85 ml ONCE ONE Administration Medical Decision Making Medical Decision Making [facility] Narrative: 6:59 AM 02/19/2025 (Dr. Kumar Jensen): Patient is presenting with what he describes as abdominal distention episodes of nausea and vomiting, has fairly benign abdominal exam, blood work reveals elevations of the AST and ALT, given the fact that patient has had multiple visits and has had some acute findings on his prior workup we will obtain CT abdomen and pelvis today to evaluate for any intra-abdominal sources of infection or any findings that would necessitate further imaging such as ultrasound of the gallbladder, I suspect he is likely having symptoms to combination of factors colchicine can elevate your LFTs but also he was discharged home on antibiotics azithromycin and doxycycline this is on February 10, he was also taking 800 mg of ibuprofen 3 times daily as I am noting on the February 06 discharge instructions, all these combinations can cause intra-abdominal issues and I do not suspect this is leading to perforation, overall vital signs are reassuring he is nonfebrile we will add on inflammatory markers to see if there is any consideration that the pericarditis getting worse 10:27 AM 02/19/2025 (Dr. Kumar Jensen): I spoke with the patient regarding CT findings, he has seen welding technician and neurologist tomorrow, I noted that he is going to have echo for monitoring of pericarditis, I am going to list some of the questions to discuss with Cardiology tomorrow, wondering whether colchicine continues to be the best option with slight elevation of LFTs or at least that they need to be monitored and I did discuss this with the patient, as far as his GI upset there was no evidence for underlying infectious etiology, he continues to have CRP elevation, slight pleural effusions, and pericardial effusion it was measured 1.5 cm posteriorly on CTA it was measured 1.8 today, his BNP slightly elevated he had negative PE on CTA in the beginning of this month, he has not had any pleurisy or hemoptysis and on blood thinners, he is definitely anxious I did not note that he became slightly tachycardic, however has not been symptomatic/hypotensive and we had a lengthy discussion regarding follow up Differential Diagnosis Differential Diagnoses: The differential diagnosis associated with the presentation includes (Colchicine side effect, worsening pericardial effusion, pneumonia, SBO, cholangitis, cholecystitis, hepatitis) Admission/Observation Consideration of admission/observation: Escalation of care including admission/observation considered Lab Data MDM Lab Attestation statement: I reviewed the patient's lab results. 02/19/25 01:50 02/19/25 01:50 Labs: Lab Results 02/19/25 Range/Units 01:50 WBC 5.9 (4.8-10.8) X10*3/uL RBC 3.33 L (4.60-5.80) X10*6/uL Hgb 9.8 L (14.0-18.0) g/dl Hct 29.4 L (42.0-52.0) % MCV 88.3 (80.0-98.0) fL MCH 29.4 (27.0-33.0) pg MCHC 33.3 (31.0-36.0) g/dl RDW 13.8 (11.0-16.0) % Plt Count 257 D (160-400) X10*3/uL MPV 10.6 (9.4-12.4) fL Immature Gran % (Auto) 0.5 H (0.0-0.4) % Neut % (Auto) 63.9 (45-73) % Lymph % (Auto) 13.6 L (20-40) % [place] % (Auto) 21.4 H (2-11) % Eos % (Auto) 0.3 (0-4) % Baso % (Auto) 0.3 (0-2) % Lymph # (Auto) 0.8 L (1.2-4.9) X10*3/uL [place] # (Auto) 1.3 H (0.1-1.2) X10*3/uL Eos # (Auto) 0.0 (0.0-0.4) X10*3/uL Baso # (Auto) 0.0 (0.0-0.2) X10*3/uL Abs Immat Gran (auto) 0.03 (0.00-0.03) X10*3/uL Absolute Neuts (auto) 3.8 (2.0-8.3) x10*3/uL Absolute Nucleated RBC 0.000 (0.0-0.012) X10*3/uL Nucleated RBC % (auto) 0.0 (0.0-0.2) /100WBC Sodium 139 (135-145) mmol/L Potassium 3.7 (3.3-5.1) mmol/L Chloride 106 (96-108) mmol/L Carbon Dioxide 22 (22-29) mmol/L Anion Gap 15 (12-20) BUN 16 (9-16) mg/dL Creatinine 0.82 (0.5-1.4) mg/dL Estim Creat Clear Calc 92.0 Estimated GFR > 60 Random Glucose 122 H (60-115) mg/dL Calcium 8.6 (8.4-10.2) mg/dL Magnesium 2.3 (1.6-2.6) mg/dL Total Bilirubin 0.9 (0.0-1.0) mg/dL Direct Bilirubin 0.5 (0.0-0.5) mg/dL AST 47 H (5-37) U/L ALT 43 H (0-40) U/L Alkaline Phosphatase 153 H (39-117) U/L Troponin I High Sens 3.0 (<3.5-35.0) ng/L C-Reactive Protein 18.58 H (< or = 0.50) mg/dL NT-Pro-B Natriuret Pep 448.7 H (<300) pg/mL Total Protein 6.5 (6.5-8.0) g/dL Albumin 3.6 (3.5-5.0) g/dL Lipase 34 (8-78) U/L COVID-19 ([facility]H) Negative (Negative) COVID-19 Clin Com See Note Influenza Type A ([facility]) Negative (Negative) Influenza Type B ([facility]) Negative (Negative) Influenza A & B Note See Note Independent Interpretation I performed an independent interpretation of an: EKG (76 beats per minute otherwise normal ECG without dysrhythmia, AV emigdio blocks or new ST-T changes to suspect underlying ACS he has T-wave inversion in the lateral leads which is similar to prior, no electrical alternans noted) and Plain X-Ray (minimal effusions bilaterally) Radiology Impression Discussion of test interpretation with radiology: I have reviewed the radiologist's reading. (IMPRESSION: Slightly increased small bilateral pleural effusions.) Tests considered The following testing was considered but not selected: CT angio chest Chronic Conditions Patient?s care impacted by: Hypertension Discharge Plan Discharge Clinical Impression: Abdominal distension, Community acquired pneumonia, Pericarditis Patient Disposition: Home, Self-Care Additional Instructions: As discussed your medical therapy is fairly optimized however these of the following questions I have for cardiology when you have follow up 1. You had marginal elevation in your LFTs, we will have some abdominal discomfort, consideration to continue colchicine 0.6 mg twice a day which is fairly low or switching to steroids 2. I understand you were taking ibuprofen but you are also taking Eliquis, I am just wondering about a bleeding risk , again possibly switching to steroids may be a better option Continue antibiotics both azithromycin and doxycycline, as discussed antibiotics we will give you some stomach issues, just make sure you take these with food this may augment some of the side effects. Your BNP which has a heart failure markers also slightly elevated at 448 Your CRP which is inflammatory marker was down to 10 back up to 18, in the setting of the diagnosis and being on colchicine and anti-inflammatories I am not sure what is the clinical relevance of this as otherwise you are doing well, but these markers including heart failure marker need to be monitored Prescriptions: No Action azithromycin 250 mg tablet 250 mg PO DAILY 4 Days Qty: 4 0RF Rx Instructions: start on day 2 of therapy doxycycline hyclate 100 mg tablet 100 mg PO BID Qty: 13 0RF lamotrigine [Lamictal] 200 mg tablet 200 mg PO BID lamotrigine 100 mg tablet 100 mg PO DAILY melatonin 5 mg tablet,disintegrating 5 mg PO BEDTIME PRN (Reason: insomnia) colchicine 0.6 mg tablet 0.6 mg PO DAILY atorvastatin 80 mg Tablet 80 mg PO BEDTIME 30 Days Qty: 30 0RF ropinirole 2 mg tablet 2 mg PO BEDTIME omeprazole 40 mg Capsule,Delayed Release(Dr/Ec) 40 mg PO DAILY@0630 Qty: 30 0RF apixaban 5 mg tablet 5 mg PO BID Qty: 60 0RF ibuprofen 800 mg tablet 800 mg PO TID Qty: 42 0RF Print Language: St Helen[place]
--- NOTE | 2025-02-19 07:56 | PC.NURSE ---
Assumed care of patient. Placed 20G IV in LAC for patient to go to CT. CT notified pt is ready. No vomitting and patient sts no pain just some distention and not being able to keep food down. A+Ox4, calm, cooperative.
[2025-02-19] MEDS: iohexoL 350 MG/ML 100 ML INFUS..BTL IV (08:13)
[2025-02-19 09:21] VITALS: BP 129/83; PULSE 113; RESP 18; O2SAT 96
[2025-02-19 11:13] VITALS: BP 131/88; PULSE 100; RESP 12; O2SAT 99
[2025-02-19 11:14] VITALS: BP 131/88; PULSE 100; RESP 12; TEMP -17.7; TEMP 0; O2SAT 99
== END 2025-02-19 11:16 | disposition home or self-care (01) ==
PROVIDERS: Emergency Provider Emergency Medicine; PCP Family Medicine
DX: J18.9 Pneumonia, unspecified organism (principal); I31.9 Disease of pericardium, unspecified; R06.02 Shortness of breath; I48.92 Unspecified atrial flutter; R14.0 Abdominal distension (gaseous); Z79.01 Long term (current) use of anticoagulants; Z79.899 Other long term (current) drug therapy
CPT/HCPCS: 36415; 71046; 74177; 80053; 82248; 83690; 83735; 83880; 84484; 85025; 86140; 87502; 87635; 93005; 99284; Q9967

== ENCOUNTER → 2025-02-19 01:22 | Outpatient (BNV) | payer MEDICARE, SELFPAY | PROVIDERS: PCP Family Medicine; Visit Provider Radiology Diagnostic Radiology | DX: R14.0 Abdominal distension (gaseous) (principal); R79.89 Other specified abnormal findings of blood chemistry; I31.39 Other pericardial effusion (noninflammatory); J90 Pleural effusion, not elsewhere classified | CPT/HCPCS: 71046; 74177 ==

== ENCOUNTER → 2025-02-19 01:22 | Outpatient (BNV) | payer MEDICARE, SELFPAY | PROVIDERS: Emergency Provider Emergency Medicine; PCP Family Medicine; Visit Provider Internal Medicine Cardiovascular Disease | DX: I48.92 Unspecified atrial flutter (principal); I44.1 Atrioventricular block, second degree | CPT/HCPCS: 93010 ==

== ENCOUNTER 2025-02-20 08:31 | Outpatient (AMB) | payer MEDICARE, SELFPAY ==
--- NOTE | 2025-02-20 08:36 | MHC.OFFVIS ---
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 I saw him in the hospital on 01/18/2025 following a left frontal lobe CVA. At the time of his January admission, he had recently been diagnosed with pericarditis and was started on high-dose ibuprofen and colchicine. He had noticed his right arm had not been working as it ?should . He had difficulty with fine motor skills on the right side and had some difficulty with performing day-to-day tasks such as figuring out how to ?start the car ?. At the time, he denied any known history of atrial fibrillation. At the time of his January hospital visit, I recommended he continue with aspirin 81 mg, permissive hypertension, and repeat echocardiogram, carotid Doppler, telemetry, and escalation in statin care. He presents to the hospital again on 02/02/2025 for general malaise and shortness of breath. During this admission, cardiology notes reflect that atrial flutter has been identified incidentally during hospitalization. He has been asymptomatic at the time though because of this finding, it did raise concern for possible atrial flutter related ischemic event. The recommendation by Cardiology was to start on Eliquis 5 mg twice daily and follow-up with an echocardiogram. Findings on repeat echocardiogram on 02/06/2025 for reassuring and stable compared to prior study on 02/03/2025 notable for small to moderate pericardial effusions without evidence of tamponade. He is here today for a stroke follow up. He tells me that since the time of his last visit, he has not had any new arising neurological symptoms aside from some weakness of his lower extremities which he feels is new but has been present only since he has been acutely ill with pneumonia and pericarditis. He has been taking his Eliquis and atorvastatin as prescribed without any issues. He does note that his blood pressure and heart rate fluctuate due to his dysautonomia. He has been intermittently short of breath since his pericarditis and pneumonia diagnosis but otherwise has been doing relatively well in terms of neurological health. He does have follow up with Cardiology today for some concerns with concurrent use of Eliquis and the ibuprofen in terms of bleeding risk. He also has follow up with his Neurology team in [place] and does plan to move out to the [place] area in the coming months. He has no concerns for me today. I did answer some questions in regards to use of Eliquis and reduction in stroke risk as well as caution on bleeding risks moving forward and when to seek medical attention for example with head strikes on the anti coagulation COUNTS INCLUDE 234 BEDS AT THE [facility] Medical History (Updated 02/20/25 @ 09:03 by Leanna Catherine CNP) Recent cerebrovascular accident Chronic pericardial effusion Acute pericardial effusion Numbness and tingling Pericarditis Peripheral demyelinating neuropathy JACOB positive Orthostatic hypertension Restless legs syndrome CVA (cerebral vascular accident) Cognitive disorder Back pain Anxiety Depression Hyperlipidemia Non-melanoma skin cancer Surgical History H/O cervical spine surgery History of ear surgery Family History Father Myocardial infarction Family/Other Cancer Family/Other Breast cancer Mother Skin cancer Social History Household Members: Spouse Housing: House Do you presently have visiting nurse or other home services: Yes Alcohol intake: current Alcohol intake frequency: holidays/special occasions only Alcohol type: beer and hard liquor Comment: Pt declining bed alarm at this time. 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 Review of Systems Const All systems reviewed & are unremarkable except as noted in HPI and below Neuro Denies Sensory deficit (Neuro) Physical Exam Const General: cooperative, healthy appearing, comfortable and no acute distress Orientation/consciousness: patient oriented x3 Eyes Pupils: Equal, round and reactive pupils present Neuro General: patient oriented x3 and Unable to assess gait Cranial nerves: Yes CN's II-XII intact bilaterally, Yes Equal, round and reactive pupils present, Yes Normal accommodation reflex present, Yes Bilaterally intact EOM present and Yes Nystagmus not present Cognition (Neuro): normal cognition Gait exam (Neuro): Normal gait present and Unable to assess gait Motor exam (neuro): 5/5 motor strength present throughout, Pronator motor function not present, no tremor noted and no pronator drift noted Sensory Exam: No Sensory deficit (Neuro) Deep tendon reflexes (DTR's): Right triceps reflex intensity grade: 1+, Left triceps reflex intensity grade: 1+, Rt Biceps (C5, C6): 1+, Left biceps reflex intensity grade: 1+, Right brachioradialis reflex intensity grade: 1+, Left brachioradialis reflex intensity grade: 1+, Right patellar reflex intensity grade: 2+, Left patellar reflex intensity grade: 2+, Right ankle reflex intensity grade: 1+ and Left ankle reflex intensity grade: 1+ Coordination: [id number] test normal Assessment & Plan Assessment & Plan (1) Recent cerebrovascular accident: Code(s): Z86.73 - Personal history of transient ischemic attack (TIA), and cerebral infarction without residual deficits Category: Medical Plan Chilo is a 69-year-old male patient with a past medical history of GERD, ADHD and restless legs syndrome also being followed at [facility] for possible dysautonomia, synucleinopathy, 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 He is here today for stroke follow up. Since the time I saw him in the hospital, it was found somewhat incidentally that he has atrial fibrillation/flutter making it more likely that his ischemic event was related to his cardiac arrhythmia. He is now anticoagulated and tolerating the anticoagulation well. There was some concern with Eliquis and concurrent use of high-dose ibuprofen. He does have follow up with Cardiology today and we will discuss this. He plans to follow up with his Neurology team in [place] moving forward as he does plan to move out to the [place] area and then it coming months. He has no concerns for me today and does not have any new arising neurological symptoms. His exam was reassuring. Coding Level of Care Code Est Pt Level 3 (38872) Diagnoses Recent cerebrovascular accident Z86.73
[2025-02-20 08:46] VITALS: BP 107/74; PULSE 125; RESP 16; O2SAT 99; BMI 25.2
--- OUTSIDE RECORDS SUMMARY | 2025-02-20 09:02 | XMS_ITS | Encounter Summary ---
Author Organization [facility] Address [address] [facility] [address] [place] [address] Phone Care Team Providers Care Ladle Builder Name Role Phone Khadra Romo MD Primary Care Provider John Chopra MD Unavailable [phone] Rai Pendleton-Alonzo Zelaya MD Unavailable Encounter Details Date Type Department Care Team (Late st Contact Info) Description 01/16/2025 Orders Only [facility] [place] [address] Unknown, Unknown, Social History Tobacco Use Types [...] Pass [facility] Endoscopy Admitting Dept Virtual Department [address] [place] [address] 03/01/2025 9:30 AM EDT Hospital Encounter [facility] Endoscopy Admitting Dept Virtual Department [address] [place] [address] Shai Ayon MD 10 [facility] 2 [place] [address] [email or web address] 03/01/2025 9:30 AM EDT - 03/01/2025 10:00 AM EDT Surgery [facility] Endoscopy Admitting Dept Virtual Department [address] [place] [address] Shai Ayon MD 10 [facility] 2 [place] [address] [email or web address] COLONOSCOPY 03/15/2025 3:00 PM EST Office Visit [facility] Department of Neurology 55 [facility], 8th Floor, [address] [place] [address] Luanne Rodríguez MD 55 [facility] [address] [place] [address] [email or web address] 04/10/2025 11:00 AM EST Office Visit [facility] Neurology Neuromuscular [address], [address] [place] [address] Lenny Pendleton MD 165 [facility] [address] [place] [address] [email or web address] 06/09/2025 1:00 PM EST Office Visit [facility] Department of Neurology [address] [facility], 8th Floor, [address] [place] [address] John Chopra MD [address] [place] [phone] [email or web address] 07/21/2025 8:40 AM EDT Office Visit [facility] [address] [facility] [address] [place] [address] Khadra Romo MD 15 [facility] [address] [place] [address] [email or web address] 08/25/2025 11:00 AM EDT Office Visit [facility] Cardiology [facility] [address] [facility], [address] [place] [address] Clementine Brower MD 40 [facility], [address] [place] [address] [email or web address] Scheduled Procedures Name Priority Associated Diagnoses Date/Ti [...] documented as of this encounter Care Teams Ladle Builder Relationship Specialty Start Date End Date Khadra Romo MD 15 [facility] 201 [place] [address] [email or web address] PCP - General Family Medicine 06/12/21 John Chopra MD [address] [place] [address] [place] [phone] [email or web address] [email or web address] 06/17/23 Rai Pendleton-Alonzo Zelaya MD 165 [facility] 820 [place] [address] [email or web address] Neurology 06/17/23 documented as of this encounter Additional Source Comments The information contained in this document represents components of the legal health record. It is not the complete legal health record.[facility]
--- OUTSIDE RECORDS SUMMARY | 2025-02-20 09:02 | XMS_ITS | Encounter Summary ---
Author Organization [facility] Address [address] [facility] [address] [place] [address] Phone Care Team Providers Care Toggler Name Role Phone Khadra Romo MD Primary Care Provider [phone] John Chopra MD Unavailable [phone] Lenny Pendleton MD Unavailable Reason for Visit * Reason Onset Date Comments Patient Returned Call 01/16/2025 Encounter Details Date Type Department Care Team (Late st Contact Info) Description 01/16/2025 Telephone [facility] 2 [place], [place] [phone] Maddison Irizarry CNP 2 [place] [phone] [email or web address] Patient Returned Call Social History Tobacco Use [...] feeling fine currently, no concerns. Has called [facility] cardiology to request appointment, has not heard back yet. Was not happy with [facility] and would like to proceed with [facility]. F/U appt scheduled for 01/19 with PCP. [...] [facility] Endoscopy Admitting Dept Virtual Department [address] [place] [address] 03/01/2025 9:30 AM EDT Hospital Encounter [facility] Endoscopy Admitting Dept Virtual Department 30 [place] [address] Shai Ayon MD 10 [facility] 2 [place] [address] [email or web address] 03/01/2025 9:30 AM EDT - 03/01/2025 10:00 AM EDT Surgery [facility] Endoscopy Admitting Dept Virtual Department [address] [place] [address] Shai Ayon MD 10 [facility] 2 [place] [address] [email or web address] COLONOSCOPY 03/15/2025 3:00 PM EST Office Visit [facility] Department of Neurology [address] [facility], 8th Floor, [address] [place] [address] Luanne Rodríguez MD [address] [address] [email or web address] 04/10/2025 11:00 AM EST Office Visit [facility] Neurology Neuromuscular [address], [address] [place] [address] Lenny Pendleton MD [address] [place] [address] [address] [place] [address] [email or web address] 06/09/2025 1:00 PM EST Office Visit [facility] Department of Neurology [address] [facility], 8th Floor, [address] [place] [address] John Chopra MD 55 [facility] 835 [place] [phone] [email or web address] 07/21/2025 8:40 AM EDT Office Visit [facility] 15 [facility] 201 [place] [address] Khadra Romo MD [address] [address] [email or web address] 08/25/2025 11:00 AM EDT Office Visit [facility] Cardiology [facility] [address] [facility], [address] [place] [address] Clementine Brower MD [address], [address] [place] [address] [email or web address] Scheduled Procedures Name Priority Associated Diagnoses Date/Ti me COLONOSCOPY Screen for colon cancer 03/01/2025 9:30 AM EDT documented as of this encounter Visit Diagnoses Not on filedocumented in this encounter Additional Health Concerns Assessment Noted Time PHQ-9 Depression Total Score: 12 024 3:46 PM EST PHQ-2 Depression Total Score: 1 06/28/19 25 2:08 PM EST documented as of this encounter Care Teams Toggler Relationship Specialty Start Date End Date Khadra Romo MD [address] [address] [email or web address] PCP - General Family Medicine 06/12/21 John Chopra MD [address] [place] [address] [place] [phone] [email or web address] [email or web address] 06/17/23 Lenny Pendleton MD [address] [place] [address] 820 [place] [address] [email or web address] [email or web address] 06/17/23 documented as of this encounter Additional Source Comments The information contained in this document represents components of the legal health record. It is not the complete legal health record.[facility]
--- OUTSIDE RECORDS SUMMARY | 2025-02-20 09:03 | XMS_ITS | Encounter Summary ---
Author Organization [facility] Address [address] [facility] [address] [place] [address] Phone Care Team Providers Care Letterset Press Set Up Operator Name Role Phone Khadra Romo MD Primary Care Provider [phone] John Chopra MD Unavailable [phone] Rai Pendleton-Alonzo Zelaya MD Unavailable Encounter Details Date Type Department Care Team (Late st Contact Info) Description 01/21/2024 Transcribe Orders [facility] Specimen Processing 30 [place] [address] Khadra Romo MD 15 [facility] [address]ny[address] [place] [address] Social History Tobacco Use Types Packs/Day Years [...] high school, GED, job training, learning the Thai language, technical skills, or developing parenting skills)? [...] Pass [facility] Endoscopy Admitting Dept Virtual Department [address] [place] [address] 03/01/2025 9:30 AM EDT Hospital Encounter [facility] Endoscopy Admitting Dept Virtual Department [address] [place] [address] Shai Ayon MD 10 [facility] 2 [place] [address] 03/01/2025 9:30 AM EDT - 03/01/2025 10:00 AM EDT Surgery [facility] Endoscopy Admitting Dept Virtual Department [address] [place] [address] Shai Ayon MD [address] [address] [email or web address] COLONOSCOPY 03/15/2025 3:00 PM EST Office [place] [facility] Department of Neurology 55 [facility], 8th Floor, [address] [place] [address] Luanne Rodríguez MD [address] [facility] 720 [place] [address] [email or web address] 04/10/2025 11:00 AM EST Office Visit [facility] Neurology Neuromuscular [address], [address] [place] [address] Lenny Pendleton MD 165 [facility] [address] [place] [address] [email or web address] 06/09/2025 1:00 PM EST Office Visit [facility] Department of Neurology 55 [facility], 8th Floor, [address] [place] [address] John Chopra MD [address] [place] [phone] [email or web address] 07/21/2025 8:40 AM EDT Office Visit [facility] [place] [facility] 15 [facility] 201 [place] [address] Khadra Romo MD [address] [address] 08/25/2025 11:00 AM EDT Office Visit [facility] Card[facility] 52 [facility], [address] [place] [address] Clementine Brower MD 40 [facility], [address] [place] [phone] [email or web address] Scheduled Procedures Name Priority Associated Diagnoses Date/Ti me COLONOSCOPY Screen for colon cancer 03/01/2025 9:30 AM EDT documented as of this encounter Visit Diagnoses Not on filedocumented in this encounter Additional Health Concerns Assessment Noted Time PHQ-9 Depression Total Score: 12 024 3:46 PM EST PHQ-2 Depression Total Score: 4 06/23/19 24 11:49 PM EST documented as of this encounter Care Teams Letterset Press Set Up Operator Relationship Specialty Start Date End Date Kahdra Romo MD [address] [address] PCP - General Family Medicine 06/12/21 John Chopra MD [address] [place] [phone] [email or web address] Neurology 06/17/23 Lenny Pendleton, MD 165 [facility] 820 [place] [phone] [email or web address] [email or web address] 06/17/23 documented as of this encounter Additional Source Comments The information contained in this document represents components of the legal health record. It is not the complete legal health record.[facility]
--- OUTSIDE RECORDS SUMMARY | 2025-02-20 09:03 | XMS_ITS | Encounter Summary ---
Author Organization [facility] Address [address] [employer] [facility] [address] [place] [address] Phone Care Team Providers Care Sharebroker Name Role Phone Khadra Romo MD Primary Care Provider [phone] John Chopra MD Unavailable [phone] Lenny Pendleton MD Unavailable Encounter Details Date Type Department Care Team (Late st Contact Info) Description 11/10/2023 Procedure Pass [facility], [address] [address] Social History Tobacco Use Types Packs/Day Years [...] high school, GED, job training, learning the Korean language, technical skills, or developing parenting skills)? [...] [facility] Endoscopy Admitting Dept Virtual Department [address] [place] [address] 03/01/2025 9:30 AM EDT Hospital Encounter [facility] Endoscopy Admitting Dept Virtual Department 30 [place] [address] Shai Ayon MD [address] [address] [email or web address] 03/01/2025 9:30 AM EDT - 03/01/2025 10:00 AM EDT Surgery [facility] Endoscopy Admitting Dept Virtual Department 30 [place] [address] Shai Ayon MD [address] [address] [email or web address] COLONOSCOPY 03/15/2025 3:00 PM EST Office Visit [facility] Department of Neurology 55 [facility], 8th Floor, [address] [place] [address] Luanne Rodríguez MD 55 [facility] 720 [place] [address] [email or web address] 04/10/2025 11:00 AM EST Office Visit [facility] Neurology Neuromuscular [address], [address] [place] [address] Lenny Pendleton MD 165 [facility] [address] [place] [address] [email or web address] 06/09/2025 1:00 PM EST Office Visit [facility] Department of Neurology 55 [facility], 8th Floor, [address] [place] [address] John Chopra MD 55 [facility] 835 [place] [phone] [email or web address] 07/21/2025 8:40 AM EDT Office Visit [facility] [place] [facility] 15 [facility] [address] [place] [address] Khadra Romo MD 15 [facility] 201 [place] [address] 08/25/2025 11:00 AM EDT Office Visit [facility] Cardiology [facility] 52 [facility], [address] [place] [address] Clementine Brower MD 40 [facility], [address] [place] [phone] [email or web address] Scheduled Procedures Name Priority Associated [...] documented as of this encounter Care Teams Sharebroker Relationship Specialty Start Date End Date Khadra Romo MD 15 [facility] 201 [place] [address] [email or web address] PCP - General Family Medicine 06/12/21 John Chopra MD [address] [place] [address] 835 [place] [phone] [email or web address] Neurology 06/17/23 Rai Pendleton-Alonzo Zelaya MD [address] [place] [address] 820 [place] [address] [email or web address] [email or web address] 06/17/23 documented as of this encounter Additional Source Comments The information contained in this document represents components of the legal health record. It is not the complete legal health record.[facility]
--- OUTSIDE RECORDS SUMMARY | 2025-02-20 09:03 | XMS_ITS | Clinical Summary ---
Author Organization [facility] Address [address] [address] Phone Care Team Providers Care Junior Project Manager Name Role Phone Khadra Romo MD Primary Care Provider John Chopra MD Unavailable [phone] Rai Pendleton-Alonzo Zelaya MD Unavailable Allergies No [...] only a temporary condition. - Appointment with color making supervisor on 02/20/2025 for further evaluation, including blood work, echocardiogram, and Holter monitor. Discussed that ablation can sometimes obviate the need for rate or rhythm control agents. If blood thinners are not tolerated or safe (in light of his regular falls), a Watchman procedure may be indicated. I encouraged him to speak with his color making supervisor about whether these procedures may be appropriate [...] EDT): - Referred to stroke clinic at [facility] with appointment on 03/15/2025. - Emphasized importance of managing atrial fibrillation to prevent further cerebrovascular events. - Continuation of Eliquis to prevent another stroke. Assessment & Plan (01/27/2025 2:48 PM EDT): Reports no residual deficits now and had none at time of hospital discharge. Continue baby aspirin, aggressive statin therapy. Referred to neurologist Dr. Jimenes at [facility], whom patient has seen before. Recommend discussing an alert button with his local other services organization Orders: External Referral to Neurology ([facility] and [facility] Sleep) Acute idiopathic pericarditis [...] for him to see Dr. Brower in [place] Cervical myelopathy 05/27/2024 Assessment & Plan (01/12/2025 [...] future, such as a planned trip to [place] that he mentioned, he should make his [...] Description 02/10/2025 10:40 AM EDT Office Visit [facility] [address] [place] [address] [address] [place] [address] Khadra Romo MD Atrial fibrillation with RVR (Primary Dx); Ischemic stroke of frontal lobe; Pneumonia of left lower lobe due to infectious organism 02/10/2025 Orders Only [address] [place] [address] Ramona Rodriguez MD 02/09/2025 9:47 AM EDT - 02/09/2025 11:59 PM EDT Hospital Encounter [facility] [address] [place] [address] Khadra Romo MD Discharge Disposition: Home or Self Care 02/07/2025 Telephone [facility] [address] [place] [address] Khadra Romo MD TCM Visit ([facility] + Unable to Schedule) 02/03/2025 Telephone [facility] [address] [place] [address] [address] [place] [address] Khadra Romo MD Chest Pain 02/03/2025 Orders Only [address] [place] [address] Ramona Rodriguez MD 02/02/2025 Orders Only [facility] Department of Neurology [address] [facility], 8th Floor, [address] [place] [address] Debra Stapleton RN REM sleep behavior disorder (Primary Dx) 01/27/2025 11:20 AM EDT Office Visit [facility] [address] [place] [address] Khadra Romo MD Ischemic stroke of frontal lobe (Primary Dx); Orthostatic hypotension; Acute idiopathic pericarditis 01/19/2025 Telephone [facility] [address] [place] [address] Kelley Rubio TCM Visit 01/18/2025 Orders Only [facility] [address] [place] [address] Unknown, Unknown, 01/17/[address] [place] [address] Khadra Romo MD Red Call Sudden Altered mental status 01/16/2025 Telephone [facility] [address] [place] [address] Maddison Irizarry CNP Patient Returned Call 01/16/2025 Orders Only [facility] [address] [place] [address] Unknown, Unknown, 01/12/2025 10:40 AM EDT Telemedicine [facility] [address] [place] [address] Khadra Romo MD Hypermagnesemia (Primary Dx); Parkinsonism, unspecified Parkinsonism type; Cervical myelopathy 12/23/2024 Telephone [facility] [address] [place] [address] Khadra Romo MD Labs Only 12/20/2024 1:30 PM EDT Office Visit [facility] [address] 3rd Floor, [address] [place] [address] Laura Ayala CNP Orthostatic hypotension (Primary Dx); Lightheadedness; Cold feet 12/08/2024 3:30 PM EDT Telemedicine [facility] Department of Neurology [address] [facility], 8th Floor, [address] [place] [address] John Chopra MD Dysautonomia (Primary Dx); Cognitive decline; Restless leg syndrome; REM sleep behavior disorder; Orthostatic hypotension 11/24/2024 Orders Only [facility] [address] [place] [address] Unknown, Unknown, 11/22/2024 7:40 AM EDT - 11/22/2024 11:59 PM EDT Hospital Encounter [facility] [address] 3rd [place] [address] Aryan Perry MD Discharge Disposition: Home or Self Care from Last 3 Months Immunizations Immunization Administration Dates Next Due [id number] FORMULATION 05/28/2009 Hepatitis A, Adult 08/19/2023 Hepatitis [...] [facility] Endoscopy Admitting Dept Virtual Department [address] [place] [address] 03/01/2025 9:30 AM EDT Hospital Encounter [facility] Admitting Dept Virtual Department [address] [place] [address] Shai Ayon MD 10 [facility] 2 [place] [address] [email or web address] 03/01/2025 9:30 AM EDT - 03/01/2025 10:00 AM EDT Surgery [facility] Endoscopy Admitting Dept Virtual Department [address] [place] [address] Shai Ayon MD [address] [address] [email or web address] COLONOSCOPY 03/15/2025 3:00 PM EST Office Visit [facility] Department of Neurology [address] [place] [address], 8th Floor, [address] [place] [address] Luanne Rodríguez MD [address] [place] [address] [email or web address] 04/10/2025 11:00 AM EST Office Visit [facility] Neurology Neuromuscular [address], [address] [place] [address] Lenny Pendleton MD [address] [place] [address] [address] [place] [address] [email or web address] 06/09/2025 1:00 PM EST Office Visit [facility] Department of Neurology [address] [place] [address], 8th Floor, [address] [place] [address] John Chopra MD [address] [place] [address] [address] [place] [phone] [email or web address] 07/21/2025 8:40 AM EDT Office Visit [facility] [place] [facility] [address] [facility] [address] [place] [address] Khadra Romo MD 15 [facility] [address] [place] [address] [email or web address] 08/25/2025 11:00 AM EDT Office Visit [facility] Cardiology [facility] [address] [facility], [address] [place] [address] Clementine Brower MD [address] [place] [address] [email or web address] Scheduled Procedures Name Priority Associated Diagnoses Date/Ti [...] this topic Medical Devices Implanted Type Area Contracts Intern Device Identifier Shelf Expiration Date Model / Serial / Lot Cranial Plate [id number] 20 Hole Bone Mandibular Trauma Adaption Straight Titanium - [id number] Implanted:Qty: 1 on 05/27/2024 by Margoth Velásquez MD at [facility] N/A: Posterior Cervical [employer] 449.020 / / Screw Bone 2x5mm Cortex Titanium Self Drilling Plusdrive Recess Single - [id number] Implanted:Qty: 3 on 05/27/2024 by Margoth Velásquez MD at [facility] N/A: Posterior Cervical [employer] 401.062E / / Screw Bone 2x6mm Cranial Cortex Titanium Self Tapping Cruciform Recess Gold - [id number] Implanted:Qty: 8 on 05/27/2024 by Margoth Velásquez MD at [facility] N/A: Posterior Cervical [employer] [...] PARATHYROID HORMONE 42 15 - 65 pg/mL [facility] Blood 02/09/2025 10:0 1 AM EDT 02/09/2025 10:06 AM EDT Khadra Romo MD LAB BLOOD ORDERABLES Final R esult Performing Organization Address City/[facility]/ZIP Co de Phone Number [address] [address] * Magnesium (02/09/2025 10:01 AM EDT) Pathologist [facility] MAGNESIUM 2.2 1.6 - 2.6 mg/dL [facility] Blood 02/09/2025 10:0 1 AM EDT 02/09/2025 10:06 AM EDT Khadra Romo MD LAB BLOOD ORDERABLES Final R esult [address] [address] * (ABNORMAL) Basic metabolic panel (02/09/2025 10:01 AM EDT) SODIUM 138 133 - 146 mmol/L [facility] CHLORIDE 103 96 - 108 mmol/L [facility] POTASSIUM 4.1 3.3 - 5.1 mmol/L [facility] CO2 24 21 - 35 mmol/L [facility] BUN 15 6 - 19 mg/dL [facility] CREATININE 0.80 0.5 - 1.5 mg/dL [facility] GLUCOSE 104(H) 70 - 99 mg/dL [facility] CALCIUM 8.2(L) 8.4 - 10.3 mg/dL [facility] EGFR 95 >59 mL/min/1.7 3m2 [facility] Comment:Estimated glomerular filtration rate calculated using the CKD-EPI refit equation. ANION GAP 15 10 - 20 mmol/L [facility] Blood 02/09/2025 10:0 1 AM EDT 02/09/2025 10:06 AM EDT us Khadra Romo MD LAB BLOOD ORDERABLES Final R esult Performing Organization Address City/State/[facility] Co de Phone Number [address] [address] * Outside Imaging Report Only (02/02/2025 10:18 [...] AM EST) HCV NON-REACTIV E NON-REACTI VE [facility] Blood 06/12/2021 8:53 AM EST 06/12/2021 8:54 AM EST us Khadra Romo MD LAB BLOOD ORDERABLES Final R esult [facility] [address] [employer] [place], [place] [id number] from Last 3 Months or Most Recently [...] Advance Directives For more information, please contact: [phone] (9AM - 5PM [facility], Thursday-Thursday) Documents on File Type Date Recorded Patient Scallop Shucker Expl anation Healthcare Proxy 07/22/2024 MOLST 06/29/2024 * Full Code (Latest Code Status on File) Date Activated Date Inactivated Comments 05/27/2024 11:53 AM Question Answer Comments Code Status Confirmed With: Other (specify below ) Code Discussion Comments: periop Care Teams Junior Project Manager Relationship Specialty Start Date End Date Khadra Romo MD [address] [place] [address] PCP - General Family Medicine 06/12/21 John Chopra MD [address] [place] [phone] [email or web address] Neurology 06/17/23 KeerthiLenny suarez MD [address] [facility] [address] [place] [address] [email or web address] Neurology 06/17/23 Additional Source Comments The information contained in this document represents components of the legal health record. It is not the complete legal health record.[facility]
--- OUTSIDE RECORDS SUMMARY | 2025-02-20 09:03 | XMS_ITS | Encounter Summary ---
Author Organization [facility] Address [address] [facility] [address] [place] [address] Phone Care Team Providers Care Corn Husker Name Role Phone Khadra Romo MD Primary Care Provider John Chopra MD Unavailable [phone] Rai Pendleton-Alonzo Zelaya MD Unavailable Encounter Details Date Type Department Care Team (Late st Contact Info) Description 02/10/2025 Orders Only [facility] Family [place] [address] Provider, MD Ramona [address] [place] [address] Social History Tobacco Use Types Packs/Day [...] Pass [facility] End[facility] Admitting Dept Virtual Department [address] [place] [address] 03/01/2025 9:30 AM EDT Hospital Encounter [facility] Admitting Dept Virtual Department [address] [place] [address] Shai Ayon MD [address] [address] 03/01/2025 9:30 AM EDT - 03/01/2025 10:00 AM EDT Surgery [facility] Endoscopy Admitting Dept Virtual Department [address] [place] [address] Shai Ayon MD [address] [address] COLONOSCOPY 03/15/2025 3:00 PM EST Office Visit [facility] Department of Neurology [address] [place] [address], 8th Floor, [address] [place] [address] Luanne Rodríguez MD [address] [place] [address] [place] [address] [email or web address] 04/10/2025 11:00 AM EST Office Visit [facility] Neurology Neuromuscular [address], [address] [place] [address] Lenny Pendleton MD [address] [place] [address] [address] [place] [address] [email or web address] 06/09/2025 1:00 PM EST Office Visit [facility] Department of Neurology [address] [facility], 8th Floor, [address] [place] [address] John Chopra MD 55 [facility] [address]35 [place] [phone] [email or web address] 07/21/2025 8:40 AM EDT [facility] [place] [facility] [address] [facility] [address] [place] [address] Khadra Romo MD 15 [facility] [address] [place] [address] [email or web address] 08/25/2025 11:00 AM EDT Office Visit [facility] Cardiology [facility] [address] [facility], [address] [place] [address] Clementine Brower MD 40 [facility], [address] [place] [address] [email or web address] Scheduled Procedures Name Priority Associated Diagnoses Date/Ti nc COLONOSCOPY Screen for colon cancer 03/01/2025 9:30 [...] documented as of this encounter Care Teams Corn Husker Relationship Specialty Start Date End Date Khadra Romo MD 15 [facility] [address] [place] [address] [email or web address] PCP - General Family Medicine 06/12/21 John Chopra MD [address] [place] [address] [place] [phone] [email or web address] [email or web address] 06/17/23 Rai Pendleton-Alonzo Zelaya MD [address] [place] [address] 820 [place] [address] [email or web address] [email or web address] 06/17/23 documented as of this encounter Additional Source Comments The information contained in this document represents components of the legal health record. It is not the complete legal health record.[facility]
--- OUTSIDE RECORDS SUMMARY | 2025-02-20 09:03 | XMS_ITS | Encounter Summary ---
Author Organization [facility] Address [address] [place] [address] Phone Care Team Providers Care Health And Safety Coordinator Name Role Phone Khadra Romo MD Primary Care Provider [phone] John Chopra MD Unavailable [phone] Rai Pendleton-Alonzo Zelaya MD Unavailable Encounter Details Date Type Department Care Team (Late st Contact Info) Description 01/06/2024 Procedure Pass [facility] Ct Scan - [address] [address] Social History Tobacco Use Types Packs/Day Years [...] high school, GED, job training, learning the [place] language, technical skills, or developing parenting skills)? [...] [facility] Endoscopy Admitting Dept Virtual Department [address] [place] [address] 03/01/2025 9:30 AM EDT Hospital Encounter [facility]oscopy Admitting Dept Virtual Department [address] [place] [address] Shai Ayon MD [address] [address] [email or web address] 03/01/2025 9:30 AM EDT - 03/01/2025 10:00 AM EDT Surgery [facility] End[facility] Admitting Dept Virtual Department [address] [place] [address] Shai Ayon MD [address] [address] [email or web address] COLONOSCOPY 03/15/2025 3:00 PM EST Office Visit [facility] Department of Neurology [address] [facility], 8th Floor, [address] [place] [address] Luanne Rodríguez MD 55 [facility] [address] [place] [address] [email or web address] 04/10/2025 11:00 AM EST Office Visit [facility] Neurology Neuromuscular [address], [address] [place] [address] Lenny Pendleton MD [address] [facility] [address] [place] [address] [email or web address] 06/09/2025 1:00 PM EST Office Visit [facility] Department of Neurology [address] [facility], 8th Floor, [address] [place] [address] John Chopra MD 55 [facility] [address] [place] [phone] [email or web address] 07/21/2025 8:40 AM EDT Office Visit [facility] [place] [facility] [address] [facility] [address] [place] [address] Khadra Romo MD 15 [facility] 201 [place] [address] 08/25/2025 11:00 AM EDT Office Visit [facility] Cardiology [facility] [address] [facility], [address] [place] [address] Clementine Brower MD 40 [facility], [address] [place] [phone] [email or web address] Scheduled Procedures Name Priority Associated [...] documented as of this encounter Care Teams Health And Safety Coordinator Relationship Specialty Start Date End Date Khadra Romo MD 15 [facility] [address] [place] [address] [email or web address] PCP - General Family Medicine 06/12/21 John Chopra MD [address] [place] [address] [address] [place] [phone] [email or web address] Neurology 06/17/23 Rai Pendleton-Alonzo Zelaya MD [address] [place] [address] [address] [place] [address] [email or web address] 06/17/23 documented as of this encounter Additional Source Comments The information contained in this document represents components of the legal health record. It is not the complete legal health record.[facility]
--- OUTSIDE RECORDS SUMMARY | 2025-02-20 09:04 | XMS_ITS | Encounter Summary ---
Author Organization [facility] Address [address] [facility] [address] [place] [address] Phone Care Team Providers Care Photoengraving Retoucher Name Role Phone Khadra Romo MD Primary Care Provider [phone] John Chopra MD Unavailable [phone] Lenny Pendleton MD Unavailable Reason for Visit * Reason Onset Date Comments TCM Visit 01/19/2025 Encounter Details Date Type Department Care Team (Late st Contact Info) Description 01/19/2025 Telephone [facility] [address] [place] [address] [email or web address] TCM Visit Social History Tobacco Use Types [...] Summary: S/W Chilo, he was discharged from [facility] for CVA on 01/19. He is feeling well with no residual effects. Discharged with no services or devices but is advised to follow up with cardiology for pericarditis and neurology for CVA. He has a cardiology appointment but it isn't scheduled until August 2023, he is waiting to hear back from [facility] neurology re: appointment. He had several med changes including starting ASA and colchicine, changing statin, stopping Adderall and ibuprofen for the time being. 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 and has no questions [...] date: 01/18/25 Discharge date: 01/19/25 Discharge from: [facility] Reason for hospitalization: CVA Discharge disposition: Home [...] review?: No Was the patient/caregiver able to picking table worker all new prescriptions?: Yes Does the patient [...] Management New Patient: YES/NO: no Hospitalization Name: [facility] Discharge Date: 01/19/25 Reason for Visit+ Diagnosis: [...] from discharge date Additional Note (if applicable): [facility] Call Center CSS Agent (Please do not reply to this user, as this inbox is not monitored. Thank you.) Thank you. documented in this encounter Plan of Treatment Upcoming Encounters Date Type Department Care Team (Late st Contact Info) Description 03/01/2025 Procedure Pass [facility] Admitting Dept Virtual Department [address] [place] [address] 03/01/2025 9:30 AM EDT Hospital Encounter [facility] Admitting Dept Virtual Department [address] [place] [address] Shai Ayon MD [address] [address] [email or web address] 03/01/2025 9:30 AM EDT - 03/01/2025 10:00 AM EDT Surgery [facility] Endoscopy Admitting Dept Virtual Department [address] [place] [address] Shai Ayon MD [address] [address] [email or web address] COLONOSCOPY 03/15/2025 3:00 PM EST Office Visit [facility] Department of Neurology [address] [place] [address], 8th Floor, [address] [place] [address] Luanne Rodríguez MD [address] [place] [address] [facility] [address] [place] [address] [email or web address] 04/10/2025 11:00 AM EST Office Visit [facility] Neurology Neuromuscular [place] [address] [facility], [address] [place] [address] Lenny Pendleton MD 165 [facility] [address] [place] [address] [email or web address] 06/09/2025 1:00 PM EST Office Visit [facility] Department of Neurology [address] [place] [address], 8th Floor, [address] [place] [address] John Chopra MD 55 [facility] 835 [place] [phone] [email or web address] 07/21/2025 8:40 AM EDT Office Visit [facility] [place] [facility] [address] [facility] [address] [place] [address] Khadra Romo MD 15 [facility] [address] [place] [address] [email or web address] 08/25/2025 11:00 AM EDT Office Visit [facility] Cardiology [facility] [address] [facility], [address] [place] [address] Clementine Brower MD [address] [place] [address] [email or web address] Scheduled Procedures Name Priority Associated Diagnoses Date/Ti md COLONOSCOPY Screen for colon cancer 03/01/2025 9:30 AM EDT documented as of this encounter Visit Diagnoses Not on filedocumented in this encounter Additional Health Concerns Assessment Noted Time PHQ-9 Depression Total Score: 12 06/17/2 024 3:46 PM EST PHQ-2 Depression Total Score: 1 06/28/19 25 2:08 PM EST documented as of this encounter Care Teams Photoengraving Retoucher Relationship Specialty Start Date End Date Khadra Romo MD 15 [facility] [address] [place] [address] [email or web address] PCP - General Family Medicine 06/12/21 John Chopra MD [address] [place] [address] [place] [phone] [email or web address] Neurology 06/17/23 Lenny Pendleton MD 165 [facility] [address] [place] [address] [email or web address] 06/17/23 documented as of this encounter Additional Source Comments The information contained in this document represents components of the legal health record. It is not the complete legal health record.[facility]
--- OUTSIDE RECORDS SUMMARY | 2025-02-20 09:04 | XMS_ITS | Encounter Summary ---
Author Organization [facility] Address [address] [place] [address] Phone Care Team Providers Care Respiratory Care Technician Name Role Phone Khadra Romo MD Primary Care Provider [phone] John Chopra MD Unavailable [phone] Lenny Pendleton MD Unavailable Encounter Details Date Type Department Care Team (Late st Contact Info) Description 05/27/2024 Procedure Pass [facility] PERIOPERATIVE DEPT [address] [place] [phone] Social History Tobacco Use Types Packs/Day Years [...] high school, GED, job training, learning the [place] language, technical skills, or developing parenting skills)? [...] 1:00 PM EST Vonnie Blackmon RN * [place] Suicide Severity Rating Scale (Screener/Recent Self-Report) Question [...] st Contact Info) Description 03/01/2025 Procedure Pass [facility] Endoscopy Admitting Dept Virtual Department [address] [place] [address] 03/01/2025 9:30 AM EDT Hospital Encounter [facility] Endoscopy Admitting Dept Virtual Department [address] [place] [address] Shai Ayon MD [address] [address] [email or web address] 03/01/2025 9:30 AM EDT - 03/01/2025 10:00 AM EDT Surgery [facility] Endoscopy Admitting Dept Virtual Department [address] [place] [address] Shai Ayon MD [address] [address] COLONOSCOPY 03/15/2025 3:00 PM EST Office Visit [facility] Department of Neurology [address] [place] [address], 8th Floor, [address] [place] [address] Luanne Rodríguez MD [address] [place] [address] [facility] [address] [place] [address] [email or web address] 04/10/2025 11:00 AM EST Office Visit [facility] Neurology Neuromuscular [place] [address] [facility], [address] [place] [address] Lenny Pendleton MD 165 [facility] [address] [place] [address] [email or web address] 06/09/2025 1:00 PM EST Office Visit [facility] Department of Neurology [address] [place] [address], 8th Floor, [address] [place] [address] John Chopra MD 55 [facility] [address] [place] [phone] [email or web address] 07/21/2025 8:40 AM EDT Office Visit [facility] [place] [facility] [address] [facility] [address] [place] [address] Khadra Romo MD 15 [facility] [address] [place] [address] [email or web address] 08/25/2025 11:00 AM EDT Office Visit [facility] Cardiology [facility] [address] [facility], [address] [place] [address] Clementine Brower MD [address] [facility], [address] [place] [address] [email or web address] Scheduled Procedures Name Priority Associated Diagnoses Date/Ti nj COLONOSCOPY Screen for colon cancer 03/01/2025 9:30 AM EDT documented as of this encounter Visit Diagnoses Not on filedocumented in this encounter Additional Health Concerns Assessment Noted Time PHQ-9 Depression Total Score: 12 024 3:46 PM EST PHQ-2 Depression Total Score: 4 06/23/19 24 11:49 PM EST documented as of this encounter Care Teams Respiratory Care Technician Relationship Specialty Start Date End Date Khadra Romo MD 15 [facility] [address] [place] [address] [email or web address] PCP - General Family Medicine 06/12/21 John Chopra MD [address] [place] [address] [place] [phone] [email or web address] Neurology 06/17/23 Lenny Pendleton MD 165 [facility] [address] [place] [address] [email or web address] 06/17/23 documented as of this encounter Additional Source Comments The information contained in this document represents components of the legal health record. It is not the complete legal health record.[facility]
--- OUTSIDE RECORDS SUMMARY | 2025-02-20 09:04 | XMS_ITS | Encounter Summary ---
Author Organization [facility] Address [address] [facility] [address] [place] [address] Phone Care Team Providers Care Cat And Dog Bather Name Role Phone Khadra Romo MD Primary Care Provider Pcp, Unknown Unavailable Unavailable John Chopra MD Unavailable [phone] Lenny Pendleton MD Unavailable Encounter Details Date Type Department Care Team (Late st Contact Info) Description 11/22/2022 Procedure Pass [facility], [address] [address] Social History Tobacco Use Types Packs/Day Years [...] high school, GED, job training, learning the [place] language, technical skills, or developing parenting skills)? [...] Pass [facility] Endoscopy Admitting Dept Virtual Department [address] [place] [address] 03/01/2025 9:30 AM EDT Hospital Encounter [facility]oscopy Admitting Dept Virtual Department [address] [place] [address] Shai Ayon MD [address] [place] [address] 03/01/2025 9:30 AM EDT - 03/01/2025 10:00 AM EDT Surgery [facility] Endoscopy Admitting Dept Virtual Department [address] [place] [address] Shai Ayon MD 10 [facility] 2 [place] [address] [email or web address] COLONOSCOPY 03/15/2025 3:00 PM EST Office Visit [facility] [place] of Neurology [address] [facility], 8th Floor, [address] [place] [address] Luanne Rodríguez MD 55 [facility] [address] [place] [address] [email or web address] 04/10/2025 11:00 AM EST Office Visit [facility] Neurology Neuromuscular [place] 52 [facility], [address] [place] [address] Lenny Pendleton MD [address] [employer] [facility] [address] [place] [address] [email or web address] 06/09/2025 1:00 PM EST Office Visit [facility] Department of Neurology [address] [facility], 8th Floor, [address] [place] [address] John Chopra MD 55 [facility] 835 [place] [phone] [email or web address] 07/21/2025 8:40 AM EDT Office Visit [facility] [place] [facility] [address] [facility] [address] [place] [address] Khadra Romo MD 15 [facility]. [address] [place] [address] [email or web address] 08/25/2025 11:00 AM EDT Office Visit [facility] Cardiology [facility] 52 [facility], [address] [place] [address] Clementine Brower MD [address] [place] [address] [email or web address] Scheduled Procedures Name Priority Associated [...] documented as of this encounter Care Teams Cat And Dog Bather Relationship Specialty Start Date End Date Khadra Romo MD [address] [address] [email or web address] PCP - General Family Medicine 06/12/21 Pcp, Unknown 01/28/21 06/16/23 John Chopra MD [address] [place] [address] 835 [place] [phone] [email or web address] Neurology 06/17/23 Lenny Pendleton MD [address] [place] [address] 820 [place] [address] [email or web address] [email or web address] 06/17/23 documented as of this encounter Additional Source Comments The information contained in this document represents components of the legal health record. It is not the complete legal health record.[facility]
--- OUTSIDE RECORDS SUMMARY | 2025-02-20 09:05 | XMS_ITS | Encounter Summary ---
Author Organization [facility] Address [address] [facility] [address] [place] [address] Phone Care Team Providers Care Wood Tank Builder Name Role Phone Khadra Romo MD Primary Care Provider John Chopra MD Unavailable [phone] Rai Pendleton-Alonzo Zelaya MD Unavailable Encounter Details Date Type Department Care Team (Late st Contact Info) Description 01/18/2025 Orders Only [facility] Family [place] [address] Unknown, Unknown, Social History Tobacco Use Types [...] Pass [facility] Endoscopy Admitting Dept Virtual Department [address] [place] [address] 03/01/2025 9:30 AM EDT Hospital Encounter [facility] Endoscopy Admitting Dept Virtual Department [address] [place] [address] Shai Ayon MD 10 [facility] 2 [place] [address] [email or web address] 03/01/2025 9:30 AM EDT - 03/01/2025 10:00 AM EDT Surgery [facility] Endoscopy Admitting Dept Virtual Department [address] [place] [address] Shai Ayon MD 10 [facility] 2 [place] [address] [email or web address] COLONOSCOPY 03/15/2025 3:00 PM EST Office [place] [facility] [place] of [place]rology 55 [facility], 8th Floor, [address] [place] [address] Luanne Rodríguez MD 55 [facility] [address] [place] [address] [email or web address] 04/10/2025 11:00 AM EST Office Visit [facility]rology Neuromuscular [address], [address] [place] [address] Lenny Pendleton MD 165 [facility] [address] [place] [address] [email or web address] 06/09/2025 1:00 PM EST Office [place] [facility] [place] of Neurology 55 [facility], 8th Floor, [address] [place] [address] John Chopra MD [address] [place] [phone] [email or web address] 07/21/2025 8:40 AM EDT Office Visit [facility] 15 [facility] [address] [place] [address] Khadra Romo MD 15 [facility] [address] [place] [address] 08/25/2025 11:00 AM EDT Office Visit [facility] 52 [facility], [address] [place] [address] Clementine Brower MD 40 [facility], [address] [place] [address] [email or web address] Scheduled Procedures Name Priority Associated Diagnoses Date/Ti [...] documented as of this encounter Care Teams Wood Tank Builder Relationship Specialty Start Date End Date Khadra Romo MD 15 [facility] [address] [place] [address] PCP - General Family Medicine 06/12/21 John Chopra MD [address] [place] [address] [place] [phone] [email or web address] Neurology 06/17/23 Lenny Pendleton MD [address] [place] [address] [address] [place] [address] [email or web address] [email or web address] 06/17/23 documented as of this encounter Additional Source Comments The information contained in this document represents components of the legal health record. It is not the complete legal health record.[facility]
--- OUTSIDE RECORDS SUMMARY | 2025-02-20 09:05 | XMS_ITS | Data Portability ---
Author Organization [facility], Main Office Address [address] [facility] [address] [place] [address] Care Team Providers Care Lieutenant Shift Supervisor Name Role Phone THANIA RODRIGUEZ Fibrous Plasterer JUANCARLOS MILLARD Primary Care Provider [phone] KAREEM HERNANDEZ General Surgeon [phone] Assessment No assessment recorded. Plan of Treatment Reminders Order Date Submit Date Provider Last Modified By Organization Details Last Modified Time Details Appointments None recorded. Lab lipid panel, serum 2017 018 [id number], [address] [place], [address], 8 22:33:50 ALT (alanine aminotrans ferase), serum or plasma 2017 018 [id number], [address] [place], [address], 8 22:33:47 AST/SGOT (aspartate aminotrans ferase), serum or plasma 2017 018 [id number], [address] [place], [address], 8 22:33:48 BMP, serum or plasma 2017 018 [id number], [address] [place], [address], 8 22:33:49 Referral general surgeon referral 2018 019 martina [facility], [address], [address], [place], [address], 9 16:06:43 general surgeon referral - pt wants lipoma removed from upper back 2017 018 rosanne Cronin MD, [address], [address], [place], [address], 8 15:30:07 general surgeon referral - pt has lipoma on left interspina l area and wants it removed 2016 017 rosanne Cronin MD, [address], [address], [place], [address], 7 10:01:34 neurologis t referral - pt notes worsening sx in terms of plantar feet sensitivit y/ and he has noted balance problems/ pt wants to know if he has any other options like Phys tx 2016 017 martina Stephens MD, [address] [place] [address] Dr, [facility] [address], [address], 7 19:42:45 Procedures None recorded. Surgeries None recorded. Imaging None recorded. Medication Orders tadalafil 20 mg tablet 2018 019 [id number] [address], [place], [id number], 9 09:37:27 lovastatin 20 mg tablet 2018 019 [id number], [address], [place], [phone], 9 09:37:27 Bactrim DS 800 mg-160 mg tablet 2017 018 [id number], [address], [place], [id number], 9 08:43:15 Bactrim DS 800 mg-160 mg tablet 2016 017 [facility], [address] [place] [address], [address], 9 08:43:15 Patient TargetsNo targets recorded. Patient Instructions Encounter Date Encounter Id Patient Instructions Last Modified By Organization Details Last Modified Time 08/22/2016 [id number] Medications (OTC, herbal therapies, supplements) reviewed and reconciled with patient and or caregiver, including potential side effects, drug interactions, instructions, and the consequences of not taking medication. Reviewed potential barriers to medication adherence, such as side effects from medication or cost of medication. claritza Not available 08/22/2016 15:01:07 01/28/2017 [id number] rec. take probiotic supplement or moldovan yogurt while on abx pmadden Not available 01/28/2017 10:16:38 Follow up if no improvement or if symptoms worsen. I have reviewed the note and agree with the assessment and plan of care. arslan Not available 01/28/2017 10:39:29 04/09/2018 [id number] sitz bath info awychowski Not available 04/09/2018 09:50:36 skin abscess: care instructions awychowski Not available 04/09/2018 09:50:36 cellulitis: care instructions awychowski Not available 04/09/2018 09:50:36 Please apply a warm compress for 20min 4 times daily. awychowski Not available 04/09/2018 09:53:48 05/31/2018 [id number] Medications (OTC, herbal therapies, supplements) reviewed and [...] CIENT IN VITAM IN D. Refer ence: [facility] Data Brief : No.[id number] July: Vitam [...] Go To The Location Of Their Choice, [address] 05/25/2018 17:13:35 05/25/1905/25/2018 lipid panel , serum [...] cient in vitam in D. Refer ence: [facility] Data Brief : No.59 July: Vitam in D Statu s: [place]ite [place] s: [id number] As of , Vitam in D, 25-Hy droxy assay has been [facility]. In some [facility], the new assay may yield a highe r value (up to 15% incre ase) in dinorah rison to the old assay . These incre ases would mainl y be notic eable at value s of great er than 50 ng/ml . Not Available [facility] (Centralized Electronic Ordering - All Locations) Patient Can Go To The Location Of Their Choice, [address] 05/25/2018 17:17:43 05/25/1905/25/2018 HbA1c (hemo globi n [...] Go To The Location Of Their Choice, [address] 05/25/2018 20:55:44 05/25/1905/26/2018 hepat itis C virus Ab, serum anti-hepatit is C NEGAT ANAM Refer ence range : Negat anam This test was perfo rmed on the Abbot t Archi tect immun oassa y syste m. Not Available [facility] (Centralized Electronic Ordering - All Locations) Patient Can Go To The Location Of Their Choice, [address] 05/26/2018 08:07:52 08/26/19 17 08/16/2016 XR, cervi kerry spine No observ ation record ed. [email or web address] [facility] [address] , [place], [address], 08/25/2016 12:27:16 Result Notes None recorded. 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 Liseth regalado [facility] 6 09:16:08 Infectiv e hepatiti s immuniza tion Completed 200811/15/2013 RECORDED 05/24/19 09 9:24AM BY DAYNA RIOS, NURSE VISIT Liseth regalado [facility] 6 09:16:09 Infectiv e hepatiti s immuniza tion Completed 200812/08/2013 RECORDED 05/24/19 09 9:24AM BY DAYNA RIOS, NURSE VISIT Liseth regalado [facility] 6 09:16:09 Infectiv e hepatiti s immuniza tion Completed 200812/09/2013 RECORDED 05/24/19 09 9:24AM BY DAYNA RIOS, NURSE VISIT Liseth regalado [facility] 6 09:16:09 Influenz a vaccine needed 38776848677 06 Completed 200811/15/2013 RECORDED 10/19/19 09 10:09AM BY RICKI GORDILLO MD, ANNOTATI ON/ADDEN DUM Liseth regalado [facility] 6 09:16:08 General examinat ion of patient Completed 200811/15/2013 RECORDED 10/19/19 09 10:09AM BY RICKI GORDILLO MD, ANNOTATI ON/ADDEN DUM Liseth Hooks null, [facility] 6 09:16:09 Influenz a vaccine needed 82798768935 06 Completed 200812/08/2013 RECORDED 10/19/19 09 10:09AM BY RICKI GORDILLO MD, ANNOTATI ON/ADDEN DUM Liseth Hooks null, [facility] 6 09:16:08 General examinat ion of patient Completed 200812/08/2013 RECORDED 10/19/19 09 10:09AM BY RICKI GORDILLO MD, ANNOTATI ON/ADDEN DUM Liseth Hooks null, [facility] 6 09:16:09 Screenin g for malignan t neoplasm of colon Completed 200812/08/2013 RECORDED 10/19/19 09 10:09AM BY RICKI GORDILLO MD, ANNOTATI ON/ADDEN DUM Leslie Ervin [facility] 7 10:10:53 Influenz a vaccine needed 50082648402 06 Completed 200812/09/2013 RECORDED 10/19/19 09 10:09AM BY RICKI GORDILLO MD, ANNOTATI ON/ADDEN DUM Liseth Hooks null, [facility] 6 09:16:09 General examinat ion of patient Completed 200812/09/2013 RECORDED 10/19/19 09 10:09AM BY RICKI GORDILLO MD, ANNOTATI ON/ADDEN DUM Liseth Hooks null, [facility] 6 09:16:09 Screenin g for malignan t neoplasm of colon Completed 200812/09/2013 RECORDED 10/19/19 09 10:09AM BY RICKI GORDILLO MD, ANNOTATI ON/ADDEN DUM Leslie Ervin MA null, [facility] 7 10:10:53 Hyperlip idemia 07620865 Completed 200911/15/2013 RECORDED 09/07/19 10 1:34PM BY ELIANE RIOS MA, ANNOTATI ON/ADDEN DUM Liseth Hooks null, [facility] 6 09:16:08 Acute upper respirat ory infectio n 84689887 Completed 201211/15/2013 RECORDED 07/31/19 13 9:55AM BY KENDRICK HIGHTOWER MA, ANNOTATI ON/ADDEN DUM Leslie Ervin MA null, [facility] 7 10:11:22 Chest pain 59557682 Completed 201211/15/2013 RECORDED 07/31/19 13 9:54AM BY KENDRICK HIGHTOWER MA, ANNOTATI ON/ADDEN DUM Liseth Hooks null, [facility] 6 09:16:08 Screenin g for malignan t neoplasm of colon Completed 201211/15/2013 RECORDED 07/31/19 13 9:55AM BY KENDRICK HIGHTOWER MA, ANNOTATI ON/ADDEN DUM Leslie Ervin MA null, [facility] 7 10:10:53 Risk of exposure to communic able disease 421756114 Completed 201211/15/2013 RECORDED 07/31/19 13 9:55AM BY KENDRICK HIGHTOWER MA, ANNOTLISA ON/ADDEN DUM Liseth Hooks null, [facility] 6 09:16:08 Dysuria 31636179 Completed 201211/15/2013 RECORDED 07/31/19 13 9:55AM BY KENDRICK HIGHTOWER MA, ANNOTATI ON/ADDEN DUM Liseth Hooks null, [facility] 6 09:16:08 Enthesop athy of knee 21378923 Completed 201211/15/2013 RECORDED 07/31/19 13 9:55AM BY KENDRICK HIGHTOWER MA, ANNOTATI ON/ADDEN DUM Liseth Hooks null, [facility] 6 09:16:08 Blood in urine 71290988 Completed 201211/15/2013 RECORDED 07/31/19 13 9:54AM BY KENDRICK HIGHTOWER MA, ANNOTATI ON/ADDEN DUM Liseth Hooks null, [facility] 6 09:16:08 Malaise and fatigue 999183366 Completed 201211/15/2013 RECORDED 07/31/19 13 9:55AM BY KENDRICK HIGHTOWER MA, ANNOTATI ON/ADDEN DUM Liseth Hooks null, [facility] 6 09:16:08 Administ ration of diphther ia and tetanus vaccine Completed 201211/15/2013 RECORDED 07/31/19 13 9:55AM BY KENDRICK HIGHTOWER MA, ANNOTATI ON/ADDEN DUM Liseth Hooks null, [facility] 6 09:16:09 Disorder of skin 51494557 Completed 201211/15/2013 RECORDED 07/31/19 13 9:55AM BY KENDRICK HIGHTOWER MA, ANNOTATI ON/ADDEN DUM Liseth Hooks null, [facility] 6 09:16:08 Sprain of spinal ligament 465050510 Completed 201211/15/2013 RECORDED 07/31/19 13 9:55AM BY KENDRICK HIGHTOWER MA, ANNOTATI ON/ADDEN DUM Liseth Hooks null, [facility] 6 09:16:08 Acute upper respirat ory infectio n 50649264 Completed 201212/08/2013 RECORDED 07/31/19 13 9:55AM BY KENDRICK HIGHTOWER MA, ANNOTATI ON/ADDEN DUM Leslie Bigby WILLY null, [facility] 7 10:11:22 Chest pain 83752376 Completed 201212/08/2013 RECORDED 07/31/19 13 9:54AM BY KENDRICK HIGHTOWER MA, ANNOTATI ON/ADDEN DUM Liseth Hooks null, [facility] 6 09:16:08 Risk of exposure to communic able disease 150641887 Completed 201212/08/2013 RECORDED 07/31/19 13 9:55AM BY KENDRICK HIGHTOWER MA, JEREMIAHATI ON/ADDEN DUM Liseth Hooks null, [facility] 6 09:16:08 Dysuria 14277029 Completed 201212/08/2013 RECORDED 07/31/19 13 9:55AM BY KENDRICK HIGHTOWER MA, ANNOTATI ON/ADDEN DUM Liseth Hooks null, [facility] 6 09:16:08 Enthesop athy of knee 50498058 Completed 201212/08/2013 RECORDED 07/31/19 13 9:55AM BY KENDRICK HIGHTOWER MA, ERMA ON/ADDEN DUM Liseth Hooks null, [facility] 6 09:16:08 Blood in urine 88717645 Completed 201212/08/2013 RECORDED 07/31/19 13 9:54AM BY KENDRICK HIGHTOWER MA, ERMA ON/ADDEN DUM Liseth Hooks null, [facility] 6 09:16:08 Malaise and fatigue 780602041 Completed 201212/08/2013 RECORDED 07/31/19 13 9:55AM BY KENDRICK HIGHTOWER MA, ERMA ON/ADDEN DUM Liseth Hooks null, [facility] 6 09:16:08 Administ ration of diphther ia and tetanus vaccine Completed 201212/08/2013 RECORDED 07/31/19 13 9:55AM BY KENDRICK HIGHTOWER MA, ERMA ON/ADDEN DUM Liseth Hooks null, [facility] 6 09:16:09 Disorder of skin 44414979 Completed 201212/08/2013 RECORDED 07/31/19 13 9:55AM BY KENDRICK HIGHTOWER MA, ANNOTATI ON/ADDEN DUM Liseth Hooks null, [facility] 6 09:16:08 Adult health examinat ion Completed 201212/08/2013 RECORDED 07/31/19 13 9:54AM BY KENDRICK HIGHTOWER MA, ANNOTATI ON/ADDEN DUM Leslie Erivn MA null, [facility] 7 10:10:49 Sprain of spinal ligament 846657629 Completed 201212/08/2013 RECORDED 07/31/19 13 9:55AM BY KENDRICK HIGHTOWER MA, ANNOTATI ON/ADDEN DUM Liseth Hooks null, [facility] 6 09:16:08 Acute upper respirat ory infectio n 92594799 Completed 201212/09/2013 RECORDED 07/31/19 13 9:55AM BY KENDRICK HIGHTOWER MA, ANNOTATI ON/ADDEN DUM Leslie Ervin MA null, [facility] 7 10:11:22 Chest pain 62280111 Completed 201212/09/2013 RECORDED 07/31/19 13 9:54AM BY KENDRICK HIGHTOWER MA, ERMA ON/ADDEN DUM Liseth Jessee null, [facility] 6 09:16:08 Risk of exposure to communic able disease 562064616 Completed 201212/09/2013 RECORDED 07/31/19 13 9:55AM BY KENDRICK HIGHTOWER MA, ANNOTATI ON/ADDEN DUM Liseth Hooks null, [facility] 6 09:16:08 Dysuria 35322977 Completed 201212/09/2013 RECORDED 07/31/19 13 9:55AM BY KENDRICK HIGHTOWER MA, ANNOTATI ON/ADDEN DUM Liseth Hooks null, [facility] 6 09:16:08 Enthesop athy of knee 29457597 Completed 201212/09/2013 RECORDED 07/31/19 13 9:55AM BY KENDRICK HIGHTOWER MA, ANNOTATI ON/ADDEN DUM Liseth Hooks null, [facility] 6 09:16:08 Blood in urine 41141651 Completed 201212/09/2013 RECORDED 07/31/19 13 9:54AM BY KENDRICK HIGHTOWER MA, ANNOTATI ON/ADDEN DUM Liseth Hooks null, [facility] 6 09:16:08 Malaise and fatigue 572930055 Completed 201212/09/2013 RECORDED 07/31/19 13 9:55AM BY KENDRICK HIGHTOWER MA, JEREMIAHATI ON/ADDEN DUM Lisethakshat Hooks null, [facility] 6 09:16:08 Administ ration of diphther ia and tetanus vaccine Completed 201212/09/2013 RECORDED 07/31/19 13 9:55AM BY KENDRICK HIGHTOWER MA, ERMA ON/ADDEN DUM Liseth Hooks null, [facility] 6 09:16:09 Disorder of skin 27914886 Completed 201212/09/2013 RECORDED 07/31/19 13 9:55AM BY KENDRICK HIGHTOWER MA, JEREMIAHATI ON/ADDEN DUM Liseth Hooks null, [facility] 6 09:16:08 Adult health examinat ion Completed 201212/09/2013 RECORDED 07/31/19 13 9:54AM BY KENDRICK HIGHTOWER MA, JEREMIAHATI ON/ADDEN DUM Leslie Ervin MA null, [facility] 7 10:10:49 Sprain of spinal ligament 224294430 Completed 201212/09/2013 RECORDED 07/31/19 13 9:55AM BY KENDRICK HIGHTOWER MA, ANNOTATI ON/ADDEN DUM Liseth Hooks null, [facility] 6 09:16:08 Cellulit is of digit 89207047 Completed 201211/15/2013 IMPRESSI ON: [place] NEW RX SENT; RECORDED 01/12/20 13 3:25PM BY KENDRICK HIGHTOWER MA, ANNOTATI ON/ADDEN DUM Liseth Hooksakshat regalado, [facility] 6 09:16:08 Cellulit is of digit 43638636 Completed 201212/08/2013 IMPRESSI ON: [place]. NEW RX SENT; RECORDED 01/12/20 13 3:25PM BY KENDRICK HIGHTOWER MA, ANNOTLISA ON/ADDEN DUM Liseth Hooks null, [facility] 6 09:16:08 Cellulit is of digit 97190536 Completed 201212/09/2013 IMPRESSI ON: [place]. NEW RX SENT; RECORDED 01/12/20 13 3:25PM BY KENDRICK HIGHTOWER MA, ANNOTATI ON/ADDEN DUM Liseth Hooksakshat regalado, [facility] 6 09:16:08 Conjunct ivitis 8041102 Completed 201211/15/2013 RECORDED 02/02/20 13 11:08AM BY INNA BURCH MA, ANNOTATI ON/ADDEN DUM Lisethakshat regalado [facility] 6 09:16:08 Benign prostati c hyperpla kaela 481019938 Active 2012 Lisethakshat regalado [facility] 6 09:16:09 Lower urinary tract symptoms 296440331 Completed 201205/16/2016 Leslie regalado [facility] 7 10:10:45 Adult health examinat ion Completed 201211/15/2013 RECORDED 02/02/20 13 11:07AM BY INNA BURCH MA, ANNOTATI ON/ADDEN DUM Leslie regalado [facility] 7 10:10:49 Hearing loss 52067815 Completed 201211/15/2013 RECORDED 02/02/20 13 11:08AM BY INNA BURCH MA, ANNOTATI ON/ADDEN DUM Leslie regalado, [facility] 7 10:10:31 Patient status finding 789884516 Completed 201211/15/2013 RECORDED 02/02/20 13 11:07AM BY INNA BURCH MA, ANNOTATI ON/ADDEN DUM Leslie regalado, [facility] 7 10:10:25 Acute upper respirat ory infectio n 21068981 Completed 201205/16/2016 IMPRESSI ON: NORMAL EXAM, REC. SYMPTOMA TIC TX, IBUPROFE N PRN PAIN. RTC IF PERSISTE NT OR WORSENIN G SYMPTOMS .; RECORDED 02/02/20 13 3:56PM BY BK PABLO PA-C, OFFICE VISIT Leslie regalado [facility] 7 10:11:22 Conjunct ivitis 5479062 Completed 201212/08/2013 RECORDED 02/02/20 13 11:08AM BY INNA BURCH MA, ANNOTATI ON/ADDEN DUM Liseth Jessee regalado [facility] 6 09:16:08 Conjunct ivitis 9178147 Completed 201212/09/2013 RECORDED 02/02/20 13 11:08AM BY INNA BURCH MA, ANNOTATI ON/ADDEN DUM Lisethakshat regalado [facility] 6 09:16:08 Patient status finding 200897768 Completed 201305/16/2016 Leslie regalado [facility] 7 10:10:25 Depressi ve disorder 26639044 Active 2013 Leslie regalado [facility] 7 09:13:24 Urinary tract obstruct ion 7637105 Completed 201308/22/2016 Leslie regalado [facility] 7 09:13:25 Hyperlip idemia 02954202 Active 2013 Liseth regalado [facility] 6 09:16:09 Palpitat ions 83374170 Completed 201305/16/2016 Leslie regalado [facility] 7 10:11:12 Sciatica 56818861 Completed 201305/16/2016 STORY: RIGHT LEG PAIN/SAMANTHA ERABLE.; RECORDED 11/15/19 3:03PM BY INNA BURCH MA, OFFICE VISIT Leslie regalado [facility] 7 10:10:28 Vitamin D deficien cy 90571597 Active 2013 Liseth regalado [facility] 6 09:16:09 Screenin g for malignan t neoplasm of colon Completed 201305/16/2016 Leslie regalado [facility] 7 10:10:53 Adult health examinat ion Completed 201305/16/2016 Leslie regalado [facility] 7 10:10:49 Hearing loss 32092360 Completed 201305/16/2016 IMPRESSI ON: AUDIOMET RY ABNORMAL , HE WILL SELF REFER TO ENT; RECORDED 11/15/19 14 11:01PM BY MATTHEW LOVE, OFFICE VISIT Leslie regalado [facility] 7 10:10:31 Skin sensatio n disturba aze 32438597 Completed 201305/16/2016 Leslie regalado [facility] 7 10:11:16 Administ ration of diphther ia, pertussi s, and tetanus vaccine Completed 201305/16/2016 Leslie regalado [facility] 7 10:11:06 Ganglion and cyst of synovium , tendon and bursa Active 2013 Leslie Ervin MA [facility] 7 09:13:16 Primary erectile dysfunct ion 856245785 Active 2016 Damian JimMaiakenna blum [facility] 7 09:06:12 Problem Notes None recorded. Procedures Surgical History Date Name Laterality Status Provider Name and Address Organization Details Recorded Time 9 excision of lipoma of back completed Gloria Money [facility] 04/22/2019 10:32:24 5 Colonoscopy completed Juancarlos Millard PA-C [address] [address], [place], [address], [facility] 05/31/2018 09:23:54 2 Prostate Surgery completed Lesliekristi Lorenzoisidro AUGILERA [facility] 05/16/2016 10:09:36 0 Cancer Surgery completed Leslie Ervin MA [facility] 05/16/2016 10:09:36 3 Orthopedic Surgery completed Lesliekristi Ervin MA [facility] 05/16/2016 10:09:36 Imaging Results None recorded. Procedure [...] REFILL REQUEST; THIS ORDER DISCONTI NUED PER [facility]. Not Available Not Available Not Available [...] Updated DateTime 8 182.88 cm 23.9 kg/m2 59377.9 6 g 99 % 99 % 72 /min 98.3 [degF] Leslie Ervin [facility] [place] 8 15:59:46 Date Recorded Body height Body mass index (BMI) Body weight Oxygen saturation Oxygen saturation in Arterial blood by Pulse oximetry Heart rate Body temperature Systolic And Diastolic Provider Name and Address Organization Details Last Updated DateTime 9 182.88 cm 24.4 kg/m2 83259.6 3 g 98 % 98 % 75 /min 97.1 [degF] 107/67 mm[Hg] Leslie Ervin [facility] 9 08:51:16 Date Recorded Body height Body weight Body mass index (BMI) Oxygen saturation Oxygen saturation in Arterial blood by Pulse oximetry Heart rate Body temperature Provider Name and Address Organization Details Last Updated DateTime 7 182.88 cm 82162.9 8 g 14.6 kg/m2 98 % 98 % 73 /min 98.1 [degF] [facility] 7 14:25:01 Date Recorded Body height Body mass index (BMI) Body weight Oxygen saturation Oxygen saturation in Arterial blood by Pulse oximetry Heart rate Body temperature Systolic And Diastolic Provider Name and Address Organization Details Last Updated DateTime 7 182.88 cm 23.4 kg/m2 48609.3 2 g 98 % 98 % 72 /min 97.4 [degF] 110/64 mm[Hg] [facility] 7 09:46:31 Date Recorded Body height Body mass index (BMI) Body weight Heart rate Body temperature Oxygen saturation Oxygen saturation in Arterial blood by Pulse oximetry Systolic And Diastolic Provider Name and Address Organization Details Last Updated DateTime 8 182.88 cm 24.4 kg/m2 57223.6 3 g 55 /min 97.1 [degF] 98 % 98 % 103/57 mm[Hg] Leny Herrera MA [facility] 8 09:15:56 Social History Question Answer Notes LastModified by Organizat ion Details LastModified Time Tobacco Smoking Status Never Smoker WILLY Alfredo [facility] 09/26/2014 16:35:57 Do You [...] Td (adult) 6 completed Liseth Hooks null, [facility] 07/31/2014 11:00:07 zoster live 6 completed Liseth regalado [facility] 10/23/2015 09:16:09 Influenza, split virus, quadrivalent, preservative 8 completed WILLY Alfredo, [facility] 04/09/2018 09:14:42 Influenza, split virus, trivalent, preservative 7 completed Not Available [facility] 11/15/2013 13:23:27 Hep B, adult 8 completed Not Available [facility] 11/15/2013 13:23:27 Hep B, adult 8 completed Not Available [facility] 11/15/2013 13:23:27 Hep B, adult 9 completed Not Available [facility] 11/15/2013 13:23:27 Novel [id number] , all formulations 0 completed Not Available [facility] 11/15/2013 13:23:27 Past Encounters Encounter ID Performer Location Encounter Start Date Encounter Closed Date Diagnosis/Indication Diagnosis SNOMED-CT Code Diagnosis ICD10 Code Diagnosis IMO Codes Diagnosis Note [id number] [facility] [id number] [facility] [place] [address] 12/18/2006 00:00:00 [id number] autoEComm erce [address] [facility] [place] [address] 03/18/2007 00:00:00 [id number] auto[employer]Comm erce [address] [facility] [place] [address] 04/07/2007 00:00:00 [id number] autoEComm erce [address] [facility] [place] [address] 08/07/2008 00:00:00 [id number] auto[facility]Comm erce [address] [facility] [place] [address] 10/18/2008 00:00:00 [id number] auto[facility] erce [address] [facility] [place] [address] 09/06/2009 00:00:00 [id number] auto[employer]Comm erce [address] [facility] [place], [place] [address] 09/10/2010 00:00:00 [id number] auto[employer]Comm erce [address] [facility] [place], [place] [address] 07/14/2011 00:00:00 [id number] autoEComm erce [address] [facility] [place], [place] [address] 10/13/2011 00:00:00 [id number] autoEComm erce [address] [facility] [place], [place] [address] 07/30/2012 00:00:00 [id number] autoEComm erce [address] [facility] [place], [place] [address] 01/11/2013 00:00:00 [id number] autoEComm erce [address] [facility] [place] [address] 02/01/2013 00:00:00 [id number] autoEComm erce [address] [facility] [place] [address] 11/14/2013 00:00:00 [id number] GUNNAR Horowitz Main Office [address] [address] [place] [address] 09/26/2014 16:26:37 09/26/2014 17:03:32 Impacted cerumen 73536721 May use debrox or OTC equivalent weekly to prevent buildup of wax. Otitis externa 8071059 Marnie tis externa left ear, ofloxacin as prescribed x 7-10 days, avoid swimming/ getting water in ear until sx have resolved. 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 see Dr Stephens note from last year [id number] Damian blum MD Main Office [address] [address] [place] [address] 05/16/2016 09:56:16 05/16/2016 11:28:51 Adult health examination 096197965 Z00.00 Palpitations 19664994 R0 0.2 Major depr essive disorder [id number] F32.9 psych provider/i s Dr Hutchins/ continue meds Hyperlipidemia [id number] E78.5 Primary er ectile dysfunction [id number] N52.9 [id number] Damian blum MD Main Office [address] [address] [place] [address] 08/22/2016 14:20:21 08/22/2016 15:20:38 Lipoma of back [id number] D17.1 Peripheral motor neuropathy [id number] G62.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 see Dr Stephens note from last year [id number] Juancarlos Millard PA-C Main Office [address] [address] [place] [address] 01/28/2017 09:33:38 01/28/2017 10:22:47 Cellulitis of forearm [id number] L03.114 mild but getting progressiv goldie slightly worse at 1 month out - no h/o DM - also has some occ pus dc - ? mrsa - will rx c bactrim as dir, f/u if no better [id number] Damian blum MD Main Office [address] [address] [place] [address] 05/28/2017 15:53:32 05/28/2017 16:42:45 Adult health examination [id number] Z00.00 Hyperlipidemia 77995029 E78.5 Lipoma of back [id number] D17.1 [id number] Clarke Estevez MD Main Office [address] [address] [place] [address] 04/09/2018 08:52:12 04/09/2018 09:49:35 Cellulitis and abscess of buttock [id number] L02.31 Will cover for enteric and skin devan. Pt advised to call with any problems on abx or if lesion does not drain spontaneou sly with abx and warm compress. [id number] Clarke Estevez MD Main Office [address] [facility] [address] [facility] [place], [place] [address] 05/31/2018 08:39:00 05/31/2018 09:43:53 Adult health examination [id number] Z00.00 rev labs c pt, he got a flu shot thru his pharmacy Primary er ectile dysfunction [id number] N52.9 pt would like to try generic cialis Lipoma of back [id number] D17.1 pt never went last yr - will re-try Impaired f asting glycemia [id number] R73.01 no evidence of pre-dm c a1c 5.5 Hyperlipidemia 72290058 E78.5 Depressive disorder [id number] [id number] F32.9 cont f/u c psych q 3 months - gets meds thru psych Attention deficit hyperactivity disorder, 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
== END 2025-02-20 08:59 | disposition home or self-care (01) ==
LOC: HO.HSM 08:31
PROVIDERS: PCP Family Medicine; Visit Provider Nurse Practitioner
DX: Z86.73 Personal history of transient ischemic attack (TIA), and cerebral infarction without residual deficits (principal)
CPT/HCPCS: 99213

== ENCOUNTER → 2025-02-20 08:31 | Outpatient (BNVA) | payer MEDICARE, SELFPAY | PROVIDERS: PCP Family Medicine; Visit Provider Nurse Practitioner | DX: I48.92 Unspecified atrial flutter (principal); I31.39 Other pericardial effusion (noninflammatory); G61.81 Chronic inflammatory demyelinating polyneuritis | CPT/HCPCS: 99212 ==

== ENCOUNTER 2025-02-20 10:15 | Outpatient (AMB) | payer MEDICARE, SELFPAY ==
[2025-02-20 10:17] VITALS: BP 100/56; PULSE 118; BMI 24.5
--- NOTE | 2025-02-20 10:17 | A.OFFVIS_ITS ---
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 He was recently seen in the hospital in consultation. Many comorbidities including demyelinating polyneuropathy. Issues during hospitalization included pericarditis, pericardial effusion, stroke as well as atrial flutter. He was put on anti-inflammatories as well as anticoagulation and discharged home. Today, he comes for follow-up. He is in atrial flutter with rapid rate. He states he is extremely weak and cannot walk and actually requesting a wheelchair. Various other symptoms like feeling short of breath and nonspecific feeling of being unwell. [facility] Medical History Recent cerebrovascular accident Chronic pericardial effusion Acute pericardial effusion Numbness and tingling Pericarditis Peripheral demyelinating neuropathy JACOB positive Orthostatic hypertension Restless legs syndrome CVA (cerebral vascular accident) Cognitive disorder Back pain Anxiety Depression Hyperlipidemia Non-melanoma skin cancer Surgical History H/O cervical spine surgery History of ear surgery Family History Father Myocardial infarction Family/Other Cancer Family/Other Breast cancer Mother Skin cancer Social History Household Members: Spouse Housing: House Do you presently have visiting nurse or other home services: Yes Alcohol intake: current Alcohol intake frequency: holidays/special occasions only Alcohol type: beer and hard liquor Comment: Pt declining bed alarm at this time. 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 Review of Systems Const Denies daytime sleepiness, Denies difficulty sleeping, Denies snoring, Denies stops breathing during sleep and Denies weakness Card Denies chest pain, Denies rapid heart rate, Denies irregular heart rhythm, Denies claudication, Denies leg edema, Denies lightheadedness, Denies palpitations, Reports dyspnea, Denies dyspnea on exertion, Denies orthopnea, Denies paroxysmal nocturnal dyspnea and Denies slow heart rate Resp Denies cough, Reports dyspnea, Denies dyspnea on exertion and Denies snoring GI Reports no additional complaints, Denies hematochezia, Denies change in stool character and Denies dyspepsia Musc Denies abnormal gait, Denies muscle weakness and Denies numbness Neuro Denies abnormal gait, Denies numbness and Denies weakness Endo Denies palpitations Physical Exam Vital Signs: Last Vital Signs Pulse 118 H 02/20/25 10:17 BP 100/56 L 02/20/25 10:17 BMI result Body Mass Index 24.5 Const General: comfortable and no acute distress Orientation/consciousness: patient oriented x3 HEENT Other: Unremarkable Head: Yes normal to inspection Neck Neck: Yes normal visual inspection Chest Chest palpation & inspection: normal inspection of the chest Resp Auscultation: clear to auscultation bilaterally Cardio Palpation: normal PMI Heart sounds: S1 normal heart sound present, S2 normal heart sound present, no gallops, no murmurs and no rubs GI Palpation (GI): Soft to palpation Back/Spine/Pelvis Other: unremarkable Skin General skin exam: no rashes or lesions noted Neuro General: patient oriented x3 Extrem General: Yes normal to inspection Psych Mental Status: mental status grossly normal Office Procedures EKG Details: EKG with atrial flutter at a rate of 118/Min. [id number], Complete Assessment & Plan Assessment & Plan (1) Atrial flutter with rapid ventricular response: Code(s): I48.92 - Unspecified atrial flutter Category: Medical (2) Pericardial effusion: Code(s): I31.39 - Other pericardial effusion (noninflammatory) Category: Medical Plan He is in atrial flutter with rapid rate, with low blood pressure and short of breath with severe generalized weakness requiring a wheelchair. This cannot be handled as an outpatient and he will need to be transported to the emergency room for workup. Discussed with the patient and he is agreeable. Also discussed with the ER physician and patient was transported to the ER. Coding Level of Care Code Est Pt Level 5 (94548) Complex EM visit Add On G2211 Diagnoses Atrial flutter with rapid ventricular response I48.92 Pericardial effusion I31.39 CPT Codes EKG - CPT: 87031-[id number], Complete ([id number])
== END 2025-02-20 10:46 | disposition home or self-care (01) ==
LOC: HO.HCS 10:16
PROVIDERS: PCP Family Medicine; Visit Provider Internal Medicine
DX: I48.92 Unspecified atrial flutter (principal); I31.39 Other pericardial effusion (noninflammatory)
CPT/HCPCS: 93010; 99215; G2211

== ENCOUNTER 2025-02-20 10:48 | Inpatient (IN) | payer MEDICARE, SELFPAY ==
[2025-02-20] VITALS (10 sets, daily range): BP systolic 86–112; BP diastolic 61–81; PULSE 115–123; RESP 12–22; TEMP 36.6–36.9; O2SAT 96–100; BMI 24.4
--- NOTE | ~2025-02-20 | XR_ITS ---
EXAMINATION: XR CHEST 1 VIEW HISTORY: pleural effusion COMPARISON: Comparison is made with the prior examination dated 02/20/2025. FINDINGS: A single AP portable view of the chest performed at 10:38 AM is submitted. There is a small left pleural effusion and a trace right pleural effusion. There is subsegmental atelectasis at the left lung base. There is no pneumothorax or pulmonary vascular congestion. The heart is normal in size. There is degenerative disc disease of the spine. XR/XR chest 1V IMPRESSION: Small left pleural effusion and trace right pleural effusion. Subsegmental atelectasis at the left lung base. Electronically signed by: Jose Noel MD 02/27/2025 11:07 AM EDT
--- NOTE | ~2025-02-20 | MR_ITS ---
EXAMINATION: MR BRAIN WITHOUT IV CONTRAST HISTORY: ?CVA TECHNIQUE: Sagittal T1, and axial T1, FLAIR, T2, gradient echo, and diffusion weighted MR images of the brain were obtained. COMPARISON: Comparison is made with the prior examination dated 01/17/2025. FINDINGS: The pituitary is normal in size. The cerebellar tonsils are normally located. There is mild prominence of the ventricular system and cortical sulci, consistent with atrophy. A few scattered periventricular and subcortical white matter hyperintensities are noted on the FLAIR and T2-weighted images which are nonspecific, but often seen in the setting of small vessel ischemic disease. There is no mass effect or midline shift. No intra or extra-axial fluid collections are identified. There are no foci of restricted diffusion. Normal vascular flow voids are noted in the basilar and carotid arteries. The visualized paranasal sinuses are clear. MR/MR head/brain wo con IMPRESSION: No acute intracranial abnormality. No evidence of an acute infarct. Electronically signed by: Jose Noel MD 02/24/2025 12:34 PM EDT
--- NOTE | ~2025-02-20 | XR_ITS ---
EXAMINATION: XR CHEST CLINICAL INFORMATION: dyspnea, orthopnea COMPARISON: February 19, 2025. TECHNIQUE: Frontal view of the chest was obtained. FINDINGS: Limited due to the exclusion of the lower thorax. Blunting of the costophrenic angles bilaterally. Mild prominence of the interstitial markings. No pneumothorax. Heart silhouette appears prominent, unchanged. Multilevel thoracic spondylosis. Degenerative changes in the shoulders, right greater and left side. XR/XR chest 1V IMPRESSION: Bilateral small pleural effusions and mild interstitial edema in the correct clinical settings. Electronically signed by: Lucho Marmolejo MD 02/20/2025 12:12 PM EDT
--- NOTE | ~2025-02-20 | CT_ITS ---
CLINICAL HISTORY: Pericardial effusion PROCEDURES: 1. Limited preprocedure CT of the chest. Permanent images saved in PACS. 2. CT-guided drainage of pericardial effusion 3. Limited post procedure CT of the chest. Permanent images saved in PACS. MEDICATIONS: -Versed , Fentanyl and lidocaine 1% -Antibiotics: None -For additional details, please see nursing flowsheet. COMPLICATIONS: None ESTIMATED BLOOD LOSS: < 5 ml CONTRAST: None SPECIMENS: A specimen was sent for culture. MODERATE SEDATION TIME: 30 min Radiation dose: DLP 908 PROCEDURE NOTE: The procedure, risks, benefits, and alternatives were carefully explained to the patient and written informed consent was obtained. The patient was placed supine on the CT table. A timeout was performed. A limited CT of the chest was performed to localize the moderate pericardial effusion and choose appropriate needle entry and trajectory. The patient was prepped and draped in usual sterile fashion. The skin and subcutaneous tissues were anesthetized with lidocaine. Under CT guidance, a 4 Upper Sor[place] 8aweek centesis catheter was used to access the pericardial space using a left of midline approach. Serosanguineous fluid was encountered. A 6 Upper Sor[place] pigtail drainage catheter was placed. A total of 200 ml of fluid was removedThe catheter was secured to the skin with a 2-0 nylon suture. A PHILIPPE bulb was then attached to the drainage catheter. A limited postprocedure CT was then obtained demonstrating catheter in place with persistent but decreased pericardial effusion. The patient was stable after the procedure and was transferred to the monitored unit. The procedure was done under moderate sedation with a dedicated nurse for monitoring of vital signs. CT/CT Drain Pericardiocentesis Impression: CT guided placement of pericardial drainage catheter Electronically signed by: Cameron Stearns MD 02/23/2025 04:06 PM EDT
--- NOTE | ~2025-02-20 | US_ITS ---
EXAMINATION: US ABDOMEN LIMITED CLINICAL INFORMATION: Right upper quadrant abdominal pain. Abnormal LFTs.. COMPARISON: Correlated to CT dated February 19, 2025. TECHNIQUE: Real-time ultrasound right upper quadrant abdomen/gallbladder using grayscale and color Doppler technique. FINDINGS: Gallbladder is fluid-filled prominent. No pericholecystic fluid collection or gallbladder wall thickening. No intraluminal abnormality. Common bile duct measures 5 mm. No gross ascites. Prominent intrahepatic segment of the IVC with flow on color Doppler interrogation. US/US abdomen limited IMPRESSION: No cholelithiasis. No gross choledocholithiasis. Please refer to the CT abdomen pelvis findings. Electronically signed by: Lucho Marmolejo MD 02/20/2025 12:57 PM EDT
--- NOTE | ~2025-02-20 | CT_ITS ---
EXAMINATION: CT HEAD WITHOUT CONTRAST CLINICAL INFORMATION: transient memory issues, leg weakness COMPARISON: January 17, 2025 Correlated to MRI brain dated January 17, 2025. TECHNIQUE: Contiguous axial imaging was performed from the skull base to vertex without intravenous administration of contrast. This CT examination was performed using dose optimization techniques as appropriate, variously including the following: *Automated exposure control *Adjustment of mA and/or kV according to patient size (this includes techniques or standardized protocols for targeted exams where dose is matched to indication/reason for exam; i.e. extremities or head) *Use of iterative reconstruction technique DLP: 747 mGy-cm FINDINGS: No acute intracranial hemorrhage, mass effect, midline shift, hydrocephalus or herniation. Romero-white matter differentiation is normal. Posterior cranial fossa contents demonstrated no acute hemorrhage or mass effect. Sellar/suprasellar region demonstrated no gross masses. Craniocervical junction is intact with normal position of the cerebellar tonsils. Mucosal thickening, ethmoid air cells and sphenoid sinus. Poor pneumatization of the frontal sinuses. Tympanic cavities and mastoid cells are aerated. CT/CT head/brain wo IV con IMPRESSION: No acute intracranial hemorrhage. Electronically signed by: Lucho Marmolejo MD 02/20/2025 02:04 PM EDT
--- NOTE | 2025-02-20 10:51 | ECG_ITS ---
Test Reason : AFIB Blood Pressure : */* mmHG Vent. Rate : 120 BPM Atrial Rate : 240 BPM P-R Int : * ms QRS Dur : 84 ms QT Int : 328 ms P-R-T Axes : 90 70 243 degrees QTcB Int : 463 ms Atrial flutter with 2:1 A-V conduction ST & T wave abnormality, consider anterolateral ischemia Abnormal ECG When compared with ECG of 19-Feb-2025 01:41, Atrial flutter has replaced Sinus rhythm Vent. rate has increased by 44 bpm Non-specific change in ST segment in Inferior leads ST more depressed Anterior leads Referred By: Bay Parker Electronically Signed By: ARMANDO ANDREA MD
--- NOTE | 2025-02-20 11:16 | ED.ARRPALP ---
HPI - Arrhythmia/Palpitations General Chief Complaint: Arrhythmia/Palpitations Stated Complaint: low bp, afib Time Seen by Provider: 02/20/25 11:02 Source: patient, old records reviewed and other Mode of arrival: wheelchair Limitations: no limitations History of Present Illness ED Provider: JANESSA RIVAS narrative: 69 yo male with PMH of Parkinsons, CIDP managed in [place], afib on eliquis, recent stroke 01/17, he has had pericarditis (stable small to moderate pericardial effusion) managed on motrin/colchicine, recent pneumonia completed his antibiotics. He notes on Thursday he had upper abdominal pain and n/v he was seen in the ED had CT scan done 02/19 showing bilateral pleural effusions with lower lobe consolidation, his pericardial effusion measured 1.8cm. No other abnormality noted. He is compliant with all medications. He had multiple outpatient provider appointments - when he woke up at 6am he felt weak, his legs wouldn't work well and his had to use a WC to get him to appointments. On arrival to the ED today he also couldn't remember his phone number or 's name. That has resolved. He was referred to the ED from cardiology for afib with RVR/leg weakness. He has had a cough, orthopnea, no leg edema. No known fevers. MD complaint: palpitations and irregular heart beat Onset (ago): day(s) Duration: intermittent Severity: moderate Context: occurred during rest and other Arrhythmia history: atrial fibrillation Associated symptoms: shortness of breath and other (weakness, recent n/v) Related Data Home Medications ?Medication ?Instructions ?Recorded ?Confirmed colchicine 0.6 mg tablet 0.6 mg PO DAILY 01/17/25 02/20/25 ropinirole 2 mg tablet 2 mg PO BEDTIME 02/03/25 02/20/25 lamotrigine 100 mg tablet 300 mg PO .QAM 02/20/25 02/20/25 lamotrigine 200 mg tablet 200 mg PO .At BEDTIME 02/20/25 02/20/25 (Lamictal) Previous Rx's ?Medication ?Instructions ?Recorded atorvastatin 80 mg tablet 80 mg PO BEDTIME 30 days #30 tabs 01/19/25 apixaban 5 mg tablet 5 mg PO BID #60 tabs 02/06/25 ibuprofen 800 mg tablet 800 mg PO TID #42 tabs 02/06/25 omeprazole 40 mg capsule,delayed 40 mg PO DAILY@0630 #30 caps 02/06/25 release Allergies Allergy/AdvReac Type Severity Reaction Status Date / Time No Known Allergies Allergy Verified 02/20/25 11:09 Review of Systems Review of Systems: Constitutional : No Weight loss, No Fever, pos Chills ENT/Mouth : No sore throat, No Rhinorrhea Eyes: No Swelling, No Redness Cardiovascular : No Chest Pain, pos SOB, NoEdema Respiratory : pos Cough, No Sputum, No Wheezing Gastrointestinal : Positive Nausea, no Vomiting, no Diarrhea, positive abdominal Pain, No Hematochezia, No Melena Genitourinary : No Dysuria, No Urinary Frequency, No Hematuria, No Urgency Musculoskeletal : No joint pain, No Myalgias, No Joint Swelling Skin : No Skin Lesions, No rash Neuro : pos Weakness, No Numbness, No Dizziness, No Headache Psych : No Anxiety/Panic, No Depression Heme/Lymph: No Bruising, No Lymphadenopathy Endocrine : No Polyuria, No Polydipsia All other systems reviewed and are negative. [facility] Past Medical History Attestation statement: The following information was validated with the patient. Source: old records reviewed Medical History Recent cerebrovascular accident Chronic pericardial effusion Acute pericardial effusion Numbness and tingling Pericarditis Peripheral demyelinating neuropathy JACOB positive Orthostatic hypertension Restless legs syndrome CVA (cerebral vascular accident) Cognitive disorder Back pain Anxiety Depression Hyperlipidemia Non-melanoma skin cancer Surgical History H/O cervical spine surgery History of ear surgery Family History Family History Father Myocardial infarction Family/Other Cancer Family/Other Breast cancer Mother Skin cancer Social History Social History Household Members: Spouse Housing: House Do you presently have visiting nurse or other home services: Yes Alcohol intake: current Alcohol intake frequency: holidays/special occasions only Alcohol type: beer and hard liquor Comment: Pt declining bed alarm at this time. 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 Oriented X3. No acute distress. Eyes: Pupils equal, round and reactive to light. ENT: Pharynx normal. Neck: Normal inspection. Neck supple. CVS:tachycardic heart rate and rhythm. Pulses normal. Respiratory: No respiratory distress. Breath sounds diminished and rales at both bases. Abdomen: Soft and nontender. Skin: Skin warm and dry. Normal skin color. Normal skin turgor. Extremities: No lower extremity edema. Neuro: Oriented X 3. No motor deficit. No sensory deficit. Course Course Course Narrative: Marisel Dawkins, DO 02/20/25 1221 transient hypotension due to 2.5mg lopressor, will hold fluids hypotension, elevated bili due to aflutter and hepatic congestion with CHF - not due to infection or severe sepsis tachycardia due to aflutter and not infection or severe sepsis BP transient hypotension resolved without any intervention JANESSA 02/20/25 1250pm Medications Administered Discontinued Medications Generic Name Dose Route Start Last Admin Trade Name Freq PRN Reason Stop Dose Admin Metoprolol Tartrate 2.5 mg 02/20/25 11:35 02/20/25 11:44 Metoprolol Tartrate 5 Mg/5 Ml Vial IVPUSH 02/20/25 11:36 2.5 mg ONCE ONE Administration Protocol Medical Decision Making Medical Decision Making MDM Narrative: 69 yo male with PMH of Parkinsons, CIDP managed in [place], afib on eliquis, recent stroke 01/17, he has had pericarditis (stable small to moderate pericardial effusion) managed on motrin/colchicine, recent pneumonia now here with aflutter and overall not feeling well. He also reports a TIA like episode - but NIH 0 on arrival. He will get labs, infl markers, CXR, UA, bedside ECHO for tamponade. Will rate control with low dose lopressor. Will hold fluids at this time - he has rales on exam, plethoric IVC as well. Suspect CHF. He took his eliquis this AM. He just has abdominal CT scan. I suspect his LFTs/bili are due to hepatic congestion and not infection or severe sepsis. Differential Diagnosis Differential Diagnoses: The differential diagnosis associated with the presentation includes aflutter, CHF, TIA Admission/Observation Consideration of admission/observation: Escalation of care including admission/observation considered admit for IV diuresis and cardioversion Consult Healthcare Provider Management of the patient was discussed with: Hospitalist and Bus Dispatcher [address] Dr. Osorio - get admitted for cardioversion then gentle diuresis. Lab Data MDM Lab Attestation statement: I reviewed the patient's lab results. 02/20/25 11:23 02/20/25 11:24 Labs: Lab Results 02/20/25 02/20/25 02/20/25 Range/Units 11:14 11:23 11:24 WBC 7.2 (4.8-10.8) X10*3/uL RBC 3.70 L (4.60-5.80) X10*6/uL Hgb 10.7 L (14.0-18.0) g/dl Hct 32.7 L (42.0-52.0) % MCV 88.4 (80.0-98.0) fL MCH 28.9 (27.0-33.0) pg MCHC 32.7 (31.0-36.0) g/dl RDW 13.7 (11.0-16.0) % Plt Count 311 (160-400) X10*3/uL MPV 10.8 (9.4-12.4) fL Immature Gran % (Auto) 0.6 H (0.0-0.4) % Neut % (Auto) 66.7 (45-73) % Lymph % (Auto) 12.0 L (20-40) % [place] % (Auto) 20.5 H (2-11) % Eos % (Auto) 0.1 (0-4) % Baso % (Auto) 0.1 (0-2) % Lymph # (Auto) 0.9 L (1.2-4.9) X10*3/uL [place] # (Auto) 1.5 H (0.1-1.2) X10*3/uL Eos # (Auto) 0.0 (0.0-0.4) X10*3/uL Baso # (Auto) 0.0 (0.0-0.2) X10*3/uL Abs Immat Gran (auto) 0.04 H (0.00-0.03) X10*3/uL Absolute Neuts (auto) 4.8 (2.0-8.3) x10*3/uL Absolute Nucleated RBC 0.000 (0.0-0.012) X10*3/uL Nucleated RBC % (auto) 0.0 (0.0-0.2) /100WBC Smear Tech's Comments VERIFIED ESR 48 H (0-15) MM/HR PT 31.3 H D (10.9-12.4) SEC INR 2.7 H (0.9-1.1) Sodium 138 (135-145) mmol/L Potassium 3.5 (3.3-5.1) mmol/L Chloride 103 (96-108) mmol/L Carbon Dioxide 22 (22-29) mmol/L Anion Gap 17 (12-20) BUN 18 H (9-16) mg/dL Creatinine 0.89 (0.5-1.4) mg/dL Estim Creat Clear Calc 84.7 Estimated GFR > 60 POC Glucose 135 H (60-115) mg/dL Random Glucose 122 H (60-115) mg/dL Lactic Acid 2.0 (0.5-2.0) mmol/L Calcium 8.5 (8.4-10.2) mg/dL Magnesium 2.3 (1.6-2.6) mg/dL Total Bilirubin 1.1 H (0.0-1.0) mg/dL AST 55 H (5-37) U/L ALT 52 H (0-40) U/L Alkaline Phosphatase 167 H (39-117) U/L Troponin I High Sens 6.7 D (<3.5-35.0) ng/L C-Reactive Protein 20.94 H (< or = 0.50) mg/dL NT-Pro-B Natriuret Pep 3516.5 H (<300) pg/mL Total Protein 6.6 (6.5-8.0) g/dL Albumin 3.6 (3.5-5.0) g/dL Independent Interpretation I performed an independent interpretation of an: EKG, Plain X-Ray (effusions noted), Ultrasound (normal GB) and CT Scan (no ICH) Interpretation: Rate: 120 Rhythm: aflutter [place]: normal Normal QRS complex. ST T wave : flutter waves no JESE qTC: 463 prior studies: changed The study has been interpreted contemporaneously by me. . Radiology Impression Discussion of test interpretation with radiology: I have reviewed the radiologist's reading. Independent Historian Clinical information obtained from an independent historian. History obtained from or confirmed by: Spouse External Record Review External record reviewed: Inpatient record, Outpatient record, Prior outpatient labs and Prior outpatient radiology Procedures Procedure Narrative Procedure Narrative: EMERGENCY ULTRASOUND INTERPRETATION-Limited Echocardiography? The study reveals:? Impression: decreased LV FUNCTION, NO RV DYSFUNCTION, moderate pericardial effusion Emergent Cardiac for Indication:? Views Used: PLAX, PSSA, A4, SX, IVC Pericardial Effusion/Tamponade Findings: yes but no tamponade RV Dilation (> LV diam in 4ch apical):? NONE Global LV Fxn: decreased but patient in aflutter IVC Dilation and Resp Variation: plethoric Performed by: JANESSA Date:02/20/25 Time: 1224pm CPT:81150; Reference Codes? [email or web address]://bit.ly/[email or web address]] Discharge Plan Discharge Clinical Impression: Chronic pericardial effusion, Pleural effusion Atrial flutter Qualifiers: Atrial flutter type: typical Qualified Code(s): I48.3 - Typical atrial flutter Patient Disposition: Admitted As Inpatient Print Language: Chinese
[2025-02-20 11:17] LABS: Glucose, Whole Blood 135 mg/dL (60-115)
[2025-02-20 11:34] LABS: Hematocrit 32.7 % (42.0-52.0); Hemoglobin 10.7 g/dl (14.0-18.0); Imm Gran Abs Auto 0.04 X10*3/uL (0.00-0.03); Imm Gran Pct Auto 0.6 % (0.0-0.4); Lymphocytes Absolute Auto 0.9 X10*3/uL (1.2-4.9); MANUAL DIFF FLAG SCAN; Mean Corpuscular HGB Conc 32.7 g/dl (31.0-36.0); Mean Corpuscular Hemoglobin 28.9 pg (27.0-33.0); Mean Corpuscular Volume 88.4 fL (80.0-98.0); NRBC Abs Auto 0.000 X10*3/uL (0.0-0.012); NRBC Pct Auto 0.0 /100WBC (0.0-0.2); Platelet Count 311 X10*3/uL (160-400); Red Blood Count 3.70 X10*6/uL (4.60-5.80); SCAN SMEAR FLAG 1; White Blood Count 7.2 X10*3/uL (4.8-10.8)
[2025-02-20 11:46] LABS: Alanine Aminotransferase 52 U/L (0-40); Albumin Level 3.6 g/dL (3.5-5.0); Alkaline Phosphatase 167 U/L (39-117); Anion Gap 17 (12-20); Aspartate Amino Transferase 55 U/L (5-37); Blood Urea Nitrogen 18 mg/dL (9-16); Calcium 8.5 mg/dL (8.4-10.2); Carbon Dioxide 22 mmol/L (22-29); Chloride 103 mmol/L (96-108); Creatinine Clr Calc Pharmacy 84.7; Estimated Glomerular Filt Rate > 60; Magnesium 2.3 mg/dL (1.6-2.6); Potassium 3.5 mmol/L (3.3-5.1); Sodium 138 mmol/L (135-145); Total Protein 6.6 g/dL (6.5-8.0)
[2025-02-20 11:51] LABS: NT Pro B Type Natriuretic Pept 3516.5 pg/mL (<300); Troponin-I High Sensitivity 6.7 ng/L (<3.5-35.0)
[2025-02-20 11:59] LABS: INTERNATIONAL NORM RATIO 2.7 (0.9-1.1); Prothrombin Time 31.3 SEC (10.9-12.4)
--- NOTE | 2025-02-20 12:13 | PC.NURSE ---
patient arrived to ED after appt with cardilogy, patient noted to be in aflutter rate in the 120s, patient is awake and alert, states that he had difficulty remembering his spouses name at check in. patient diagnosed 2 weeks ago with pneumonia, has hx of pericarditis. patient recently diagnosed with afib and is on eliquis. patient states that patient has hx of cva, with no deficits. patient brought to ED 4, placed on tele, noted to be in aflutter on the monitor, rate 118-120s, #20 placed in the Left upper arm, labs and cultures obtained. patient medicated per JUL with IVP metoprolol, patient became hypotensive, ED provider notified and at bedside at this time.
--- NOTE | 2025-02-20 13:40 | PC.NURSE ---
patient bp now stable, going to CT of head. patient at bedside, remains in aflutter rate 110s.
--- NOTE | 2025-02-20 14:23 | PM.IMHP ---
History of Present Illness Date of Service: 02/20/25 Chief Complaint: Outpatient Cardiology noted him to be in Aflutter, sent him for further wor Patient is a 69-year-old male with PMH notable for demyelinating polyneuropathy, pericarditis, pericardial effusion, stroke, atrial flutter. He was noted to have atrial flutter with rapid ventricular rate and was sent to the ED for further workup/possible cardioversion in the a.m. as this can not be handled outpatient. He reports his only symptom was feeling a little more frail and otherwise had no sick contacts no further concerns. He was also being worked up for autoimmune diseases. In the ER they trialed a low dose of 2.5 mg IV metoprolol with significant drop in blood pressure to the low 70s with quick improvement on fluid resuscitation. Hence patient is being admitted for possible cardioversion in the a.m.. Other than EKG revealing atrial flutter with RVR, mildly elevated pro BNP workup unrevealing. Cardiology consulted Review of Systems Review of Systems: Yes all other systems are reviewed and are negative [facility] Medical History Recent cerebrovascular accident Chronic pericardial effusion Acute pericardial effusion Numbness and tingling Pericarditis Peripheral demyelinating neuropathy JACOB positive Orthostatic hypertension Restless legs syndrome CVA (cerebral vascular accident) Cognitive disorder Back pain Anxiety Depression Hyperlipidemia Non-melanoma skin cancer Family History Father Myocardial infarction Family/Other Cancer Family/Other Breast cancer Mother Skin cancer Surgical History H/O cervical spine surgery History of ear surgery Social History Household Members: Spouse Housing: House Do you presently have visiting nurse or other home services: Yes Alcohol intake: current Alcohol intake frequency: holidays/special occasions only Alcohol type: beer and hard liquor Comment: Pt declining bed alarm at this time. 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 Allergies Allergy/AdvReac Type Severity Reaction Status Date / Time No Known Allergies Allergy Verified 02/20/25 11:09 Home Medications ?Medication ?Instructions ?Recorded ?Confirmed ?Last Taken ?Type colchicine 0.6 mg tablet 0.6 mg PO DAILY 01/17/25 02/20/25 02/20/25 History ropinirole 2 mg tablet 2 mg PO BEDTIME 02/03/25 02/20/25 02/19/25 History lamotrigine 100 mg tablet 100 mg PO DAILY 02/20/25 02/20/25 02/20/25 History lamotrigine 200 mg tablet 200 mg PO BID 02/20/25 02/20/25 02/20/25 History (Lamictal) Physical Exam Vital Signs and Narrative: Vital Signs: Last Vital Signs Temp 97.8 F 02/20/25 11:50 Pulse 120 H 02/20/25 13:41 Resp 20 02/20/25 12:50 BP 102/75 02/20/25 12:50 Pulse Ox 99 02/20/25 12:50 O2 Del Method Room Air 02/20/25 12:50 BMI result Body Mass Index 24.4 General: AOx3, no acute distress Resp: CTA bilaterally CVS: S1, S2, RRR GI: +BS, NT, no distention Skin: Warm, dry Neuro: Motor grossly intact bilaterally Extremities: No edema Psych: Appropriate affect Results Labs 02/20/25 11:23 02/20/25 11:24 Labs: Laboratory Results - last 24 hr 02/20/25 02/20/25 02/20/25 11:14 11:23 11:24 MCV 88.4 MCH 28.9 MCHC 32.7 RDW 13.7 Plt Count 311 MPV 10.8 Immature Gran % (Auto) 0.6 H Neut % (Auto) 66.7 Lymph % (Auto) 12.0 L [place] % (Auto) 20.5 H Eos % (Auto) 0.1 Baso % (Auto) 0.1 Lymph # (Auto) 0.9 L [place] # (Auto) 1.5 H Eos # (Auto) 0.0 Baso # (Auto) 0.0 Abs Immat Gran (auto) 0.04 H Absolute Neuts (auto) 4.8 Absolute Nucleated RBC 0.000 Nucleated RBC % (auto) 0.0 Smear Tech's Comments VERIFIED ESR 48 H PT 31.3 H D INR 2.7 H Anion Gap 17 Estim Creat Clear Calc 84.7 Estimated GFR > 60 POC Glucose 135 H Random Glucose 122 H Lactic Acid 2.0 Calcium 8.5 Magnesium 2.3 Total Bilirubin 1.1 H AST 55 H ALT 52 H Alkaline Phosphatase 167 H Troponin I High Sens 6.7 D C-Reactive Protein 20.94 H NT-Pro-B Natriuret Pep 3516.5 H Total Protein 6.6 Albumin 3.6 Imaging Radiologist's Impressions: Impressions Chest X-Ray 02/20/25 11:57 IMPRESSION: Bilateral small pleural effusions and mild interstitial edema in the correct clinical settings. Electronically signed by: Lucho Marmolejo MD 02/20/2025 12:12 PM EDT RP Abdomen Ultrasound 02/20/25 12:26 IMPRESSION: No cholelithiasis. No gross choledocholithiasis. Please refer to the CT abdomen pelvis findings. Electronically signed by: Lucho Marmolejo MD 02/20/2025 12:57 PM EDT RP Head CT 02/20/25 13:38 IMPRESSION: No acute intracranial hemorrhage. Electronically signed by: Lucho Marmolejo MD 02/20/2025 02:04 PM EDT RP Assessment and Plan (1) Atrial flutter with rapid ventricular response: Status: Acute Plan Patient is a 69-year-old male with PMH notable for demyelinating polyneuropathy, pericarditis, pericardial effusion, stroke, atrial flutter. He was noted to have atrial flutter with rapid ventricular rate and was sent to the ED for further workup/possible cardioversion in the a.m. as this can not be handled outpatient. He reports his only symptom was feeling a little more frail and otherwise had no sick contacts no further concerns. He was also being worked up for autoimmune diseases. In the ER they trialed a low dose of 2.5 mg IV metoprolol with significant drop in blood pressure to the low 70s with quick improvement on fluid resuscitation. Hence patient is being admitted for possible cardioversion in the a.m.. Other than EKG revealing atrial flutter with RVR, mildly elevated pro BNP workup unrevealing. Cardiology consulted Atrial flutter with RVR-unknown duration Patient is anticoagulated, not on any rate control medication Cardiology consulted We will monitor on telemetry Troponin NPO from midnight for possible cardioversion in the a.m. Pericardial boytqrkx-jptq-wp-moderate-chronic Continue Motrin Restless leg syndrome Continue ropinirole Continue home Lamictal for possible seizure Patient needs admission for possible cardioversion in the a.m., needing telemetry monitoring and specialist consult This note is constructed using voice recognition software. While every effort has been made to ensure accuracy, supervisor water treatment plant errors may have been included. Quality Stroke Does the patient have a stroke diagnosis?: No VTE Prior VTE?: No VTE Risk Level:: Medical - moderate - high VTE Device Contraindication: N/A - Device Ordered VTE Drug Contraindication: N/A - Med Ordered
--- NOTE | 2025-02-20 14:51 | HO.NURTONUR ---
Chilo is a pleasant 69M who presented to the ED from cardiologists office with increased with weakness and aflutter with rapid rate. patient states he has been having lower leg weakness and needed a wheelchair to get to his appt with his . patient placed on tele monitor and ekg completed. patient is in a flutter rate 110s, IV placed in right upper bicep. CT scan head is negative, CXR shows bilat small pleural effusions and mild interstitial edema. patient recently dx with pericariditis and pneumonia and finished home abx. patient is alert and oriented x3, ambulatory without devices at baseline.
--- NOTE | 2025-02-20 15:17 | PHA.MEDREC ---
Addendum entered by Matilda Ahn RPh 02/20/25 15:52: REVIEWED BY PHARMACIST Original Note: Pharmacy Consult ? Medication Reconciliation Pharmacy has completed the medication reconciliation. Spoke with pt and he has a list on hand we read through to confirm med rec. Pt no longer takes Asprin 81mg tabs and switched to Eliquis 5mg BID, he no longer takes Gabapentin 300mg caps and switched to Ropinerol 2mg tabs at bedtime; he no longer takes Melatonin due to not it not helping him sleep when taking it and he stopped Lovastatin and is now taking Atorvastatin 80mg at bedtime.
[2025-02-20 17:14] LABS: Appearance Urine Cloudy; Glucose Urine UA Negative (Negative); PH 5.5 (5.0-9.0); Specific Gravity - Urine >= 1.030 (1.005-1.025); UMIC TRIGGER UACC YES
--- NOTE | 2025-02-20 19:28 | PC.NURSE ---
this RN assumed care of this pt @1900, pt noted to be lying semi conley's, eyes closed, connected to cardiac monitoring, HR 122, SPO2 95% RA, RR 20, medicated per MAR
[2025-02-21] VITALS (14 sets, daily range): BP systolic 82–115; BP diastolic 44–81; PULSE 116–122; RESP 13–23; TEMP 36.4–36.7; O2SAT 91–100; BMI 24.1
[2025-02-21 05:06] LABS: MANUAL DIFF FLAG NO
[2025-02-21 05:09] LABS: Hematocrit 29.1 % (42.0-52.0); Hemoglobin 9.6 g/dl (14.0-18.0); Imm Gran Abs Auto 0.01 X10*3/uL (0.00-0.03); Imm Gran Pct Auto 0.1 % (0.0-0.4); Lymphocytes Absolute Auto 1.2 X10*3/uL (1.2-4.9); Mean Corpuscular HGB Conc 33.0 g/dl (31.0-36.0); Mean Corpuscular Hemoglobin 28.7 pg (27.0-33.0); Mean Corpuscular Volume 87.1 fL (80.0-98.0); NRBC Abs Auto 0.000 X10*3/uL (0.0-0.012); NRBC Pct Auto 0.0 /100WBC (0.0-0.2); Platelet Count 264 X10*3/uL (160-400); Red Blood Count 3.34 X10*6/uL (4.60-5.80); White Blood Count 6.8 X10*3/uL (4.8-10.8)
[2025-02-21 05:25] LABS: Alanine Aminotransferase 60 U/L (0-40); Albumin Level 3.2 g/dL (3.5-5.0); Alkaline Phosphatase 161 U/L (39-117); Anion Gap 12 (12-20); Aspartate Amino Transferase 70 U/L (5-37); Blood Urea Nitrogen 20 mg/dL (9-16); Calcium 8.3 mg/dL (8.4-10.2); Carbon Dioxide 23 mmol/L (22-29); Chloride 106 mmol/L (96-108); Creatinine Clr Calc Pharmacy 99.2; Estimated Glomerular Filt Rate > 60; Potassium 3.8 mmol/L (3.3-5.1); Sodium 137 mmol/L (135-145); Total Protein 6.0 g/dL (6.5-8.0)
--- NOTE | 2025-02-21 08:19 | PC.NURSE ---
Pt resting quietly. C/o weakness only. no CP. Appears to be in ST on monitor. Awaits Cardiology. Ate well. unlabored resp.
--- NOTE | 2025-02-21 09:08 | PM.CNCAR ---
History of Present Illness History of Present Illness Date of Service: 02/21/25 Requesting physician: Jenifer Valladares Consult reason: congestive heart failure and other (Atrial flutter with rapid ventricular response) Chief complaint: AFLUTTER Narrative: I was consulted to see Chilo in cardiology consultation today for recurrent atrial flutter with rapid ventricular response difficult control rate with worsening shortness of breath with minimal exertion, seen yesterday in the office by Dr. Osorio and because of his symptoms was referred to the emergency room for further treatment. He remains in atrial flutter with rapid ventricular response with 2 is to 1 conduction. He said over the last week or so he has been getting progressively more and more short of breath doing minimal exertion. He said when he is exerting himself also he notice that his abdominal gets really really hard. He has not noticed any significant leg edema. Denies any rapid heart rate. He is just worried about his shortness of breath and abdominal distention. Since he has been here he has only got 1 dose of IV metoprolol. He has been continue apixaban. He was recently admitted with recent chest pain, was diagnose pericarditis. At that time he had developed atrial flutter with rapid ventricular response but this was paroxysmal. He was then started on oral anticoagulation therapy with Eliquis because of his recent stroke which I think was suspected related to his atrial flutter. Patient also has neurologic diagnose of CIDP, positive JACOB titer, hyperlipidemia, depression anxiety as well as orthostatic hypotension. Patient was recently in the emergency room with abdominal distension and discharged home. he has antiplatelet BNP is 3516. He has not received any IV diuretics as per the chart. He is says that he is still gets short of breath doing minimal exertion including in bed. No clear orthopnea. No lightheadedness, syncope. Review of Systems Constitutional: Constitutional: Reports weakness Eyes: Eyes: Reports no additional eye complaints Cardiovascular: Cardiovascular: Reports Abdominal Distension, Denies chest pain, Reports rapid heart rate, Denies lightheadedness, Denies Loss of Consciousness, Denies palpitations and Reports dyspnea on exertion Respiratory: Respiratory: Reports no additional respiratory complaints and Reports dyspnea on exertion Gastrointestinal: Gastrointestinal: Reports no additional gastrointestinal complaints Genitourinary: Genitourinary: Reports no additional male genitourinary complaints Musculoskeletal: Musculoskeletal: Reports no additional musculoskeletal complaints Integumentary/Breasts: Skin/Breast: Reports system reviewed and no additional complaints, except as docu Neurologic: Reports system reviewed and no additional complaints, except as documented and Reports weakness Psychiatric: Psychiatric: Reports no additional psychiatric complaints Endocrine: Endocrine: Denies palpitations PMFSH Past Medical History Medical History Recent cerebrovascular accident Chronic pericardial effusion Acute pericardial effusion Numbness and tingling Pericarditis Peripheral demyelinating neuropathy JACOB positive Orthostatic hypertension Restless legs syndrome CVA (cerebral vascular accident) Cognitive disorder Back pain Anxiety Depression Hyperlipidemia Non-melanoma skin cancer Family History Family History Father Myocardial infarction Family/Other Cancer Family/Other Breast cancer Mother Skin cancer Surgical History Surgical History H/O cervical spine surgery History of ear surgery Social History Social History Household Members: Spouse Housing: House Do you presently have visiting nurse or other home services: Yes Alcohol intake: current Alcohol intake frequency: holidays/special occasions only Alcohol type: beer and hard liquor Comment: Pt declining bed alarm at this time. 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 Allergies Allergy/AdvReac Type Severity Reaction Status Date / Time No Known Allergies Allergy Verified 02/20/25 11:09 Active Medications: Current Medications Acetaminophen (Acetaminophen 325 Mg Tablet) 650 mg PO Q6H PRN PRN Reason: Pain, Mild 1-3,fever,headache Apixaban (Apixaban 5 Mg Tablet) 5 mg PO BID JERRY Last Admin: 02/20/25 20:44 Dose: 5 mg Atorvastatin Calcium (Atorvastatin Calcium 80 Mg Tablet) 80 mg PO BEDTIME JERRY Last Admin: 02/20/25 20:44 Dose: 80 mg Calcium Carbonate (Calcium Carbonate 750 Mg Tab.Chew) 750 mg PO Q4H PRN PRN Reason: Heartburn Colchicine (Colchicine 0.6 Mg Tablet) 0.6 mg PO DAILY JERRY Ibuprofen (Ibuprofen 800 Mg Tablet) 800 mg PO TID [facility] Last Admin: 02/20/25 20:44 Dose: 800 mg Lamotrigine (Lamotrigine 100 Mg Tablet) 200 mg PO BID [facility] Last Admin: 02/20/25 20:44 Dose: 200 mg Lamotrigine (Lamotrigine 100 Mg Tablet) 100 mg PO DAILY [facility] Magnesium Hydroxide (Milk Of Magnesia 30 Ml Oral.Susp) 30 ml PO DAILY PRN PRN Reason: Constipation Melatonin (Melatonin 3 Mg Tablet) 6 mg PO BEDTIME PRN PRN Reason: Insomnia Omeprazole (Omeprazole 40 Mg Capsule.Dr) 40 mg PO DAILY@0630 [facility] Last Admin: 02/21/25 06:28 Dose: 40 mg Ropinirole HCl (Ropinirole Hcl 2 Mg Tablet) 2 mg PO BEDTIME [facility] Last Admin: 02/20/25 20:44 Dose: 2 mg Sodium Chloride (0.9 % Sodium Chloride Flush 3 Ml Syringe) 3 ml IVFLUSH QSHIFT [facility] Last Admin: 02/21/25 00:00 Dose: 3 ml Home Medications ?Medication ?Instructions ?Recorded ?Confirmed ?Last Taken ?Type colchicine 0.6 mg tablet 0.6 mg PO DAILY 01/17/25 02/20/25 02/20/25 History ropinirole 2 mg tablet 2 mg PO BEDTIME 02/03/25 02/20/25 02/19/25 History lamotrigine 100 mg tablet 100 mg PO DAILY 02/20/25 02/20/25 02/20/25 History lamotrigine 200 mg tablet 200 mg PO BID 02/20/25 02/20/25 02/20/25 History (Lamictal) Physical Exam Vital Signs: Vital Signs: Last Vital Signs Temp 97.7 F 02/21/25 08:08 Pulse 116 H 02/21/25 08:08 Resp 18 02/21/25 08:08 BP 107/44 L 02/21/25 08:08 Pulse Ox 97 02/21/25 08:08 O2 Del Method Room Air 02/21/25 08:08 BMI result Body Mass Index 24.4 Const: General: cooperative, comfortable, no acute distress, alert and awake Nutritional Appearance: average body habitus Orientation/consciousness: patient oriented x3 HEENT: Head: Yes normocephalic and Yes atraumatic Neck: Neck: Yes trachea midline, Yes supple and Yes JVD Resp: Effort & Inspection: normal respiratory effort Auscultation: rales bilateral at the base Cardio: Jugular venous distension: JVD Rate: tachycardic Rhythm: abnormal rhythm Heart sounds: S1 normal heart sound present, S2 normal heart sound present, no click, no gallops and no murmurs GI: Auscultation: normal bowel sounds Skin: General skin exam: no rashes or lesions noted Neuro: General: patient oriented x3 and no focal motor deficits Extrem: General: Yes no clubbing, cyanosis or edema Objective Labs and Meds 02/21/25 04:13 02/21/25 04:13 Lab results: Laboratory Results - last 24 hr 02/20/25 02/20/25 02/20/25 11:14 11:23 11:24 WBC 7.2 RBC 3.70 L Hgb 10.7 L Hct 32.7 L MCV 88.4 MCH 28.9 MCHC 32.7 RDW 13.7 Plt Count 311 MPV 10.8 Immature Gran % (Auto) 0.6 H Neut % (Auto) 66.7 Lymph % (Auto) 12.0 L [place] % (Auto) 20.5 H Eos % (Auto) 0.1 Baso % (Auto) 0.1 Lymph # (Auto) 0.9 L [place] # (Auto) 1.5 H Eos # (Auto) 0.0 Baso # (Auto) 0.0 Abs Immat Gran (auto) 0.04 H Absolute Neuts (auto) 4.8 Absolute Nucleated RBC 0.000 Nucleated RBC % (auto) 0.0 Smear Tech's Comments VERIFIED ESR 48 H PT 31.3 H D INR 2.7 H Sodium 138 Potassium 3.5 Chloride 103 Carbon Dioxide 22 Anion Gap 17 BUN 18 H Creatinine 0.89 Estim Creat Clear Calc 84.7 Estimated GFR > 60 POC Glucose 135 H Random Glucose 122 H Lactic Acid 2.0 Calcium 8.5 Magnesium 2.3 Total Bilirubin 1.1 H AST 55 H ALT 52 H Alkaline Phosphatase 167 H Troponin I High Sens 6.7 D C-Reactive Protein 20.94 H NT-Pro-B Natriuret Pep 3516.5 H Total Protein 6.6 Albumin 3.6 Urine Color Urine Appearance Urine pH Ur Specific [place] Urine Protein Urine Glucose (UA) Urine Ketones Urine Blood Urine Nitrite Ur Leukocyte Esterase Urine RBC Urine WBC Ur Squamous Epith Cells Calcium Oxalate Crystal Urine Bacteria Hyaline Casts 02/20/25 02/21/25 17:08 04:13 WBC 6.8 RBC 3.34 L Hgb 9.6 L Hct 29.1 L MCV 87.1 MCH 28.7 MCHC 33.0 RDW 14.1 Plt Count 264 MPV 11.3 Immature Gran % (Auto) 0.1 Neut % (Auto) 61.9 Lymph % (Auto) 18.3 L [place] % (Auto) 19.3 H Eos % (Auto) 0.3 Baso % (Auto) 0.1 Lymph # (Auto) 1.2 [place] # (Auto) 1.3 H Eos # (Auto) 0.0 Baso # (Auto) 0.0 Abs Immat Gran (auto) 0.01 Absolute Neuts (auto) 4.2 Absolute Nucleated RBC 0.000 Nucleated RBC % (auto) 0.0 Smear Tech's Comments ESR PT INR Sodium 137 Potassium 3.8 Chloride 106 Carbon Dioxide 23 Anion Gap 12 BUN 20 H Creatinine 0.76 Estim Creat Clear Calc 99.2 Estimated GFR > 60 POC Glucose Random Glucose 120 H Lactic Acid Calcium 8.3 L Magnesium Total Bilirubin 0.9 AST 70 H ALT 60 H Alkaline Phosphatase 161 H Troponin I High Sens C-Reactive Protein NT-Pro-B Natriuret Pep Total Protein 6.0 L Albumin 3.2 L Urine Color Dark Yellow Urine Appearance Cloudy Urine pH 5.5 Ur Specific [place] >= 1.030 H Urine Protein 100 (2+) H Urine Glucose (UA) Negative Urine Ketones Trace Urine Blood Negative Urine Nitrite Negative Ur Leukocyte Esterase Trace H Urine RBC 0-2 Urine WBC 0-5 Ur Squamous Epith Cells 6-10 Calcium Oxalate Crystal Present Urine Bacteria None Seen Hyaline Casts - Imaging Radiologist's impression: Impressions Chest X-Ray 02/20/25 11:57 IMPRESSION: Bilateral small pleural effusions and mild interstitial edema in the correct clinical settings. Electronically signed by: Lucho Marmolejo MD 02/20/2025 12:12 PM EDT Abdomen Ultrasound 02/20/25 12:26 IMPRESSION: No cholelithiasis. No gross choledocholithiasis. Please refer to the CT abdomen pelvis findings. Electronically signed by: Lucho Marmolejo MD 02/20/2025 12:57 PM EDT RP Head CT 02/20/25 13:38 IMPRESSION: No acute intracranial hemorrhage. Electronically signed by: Lucho Marmolejo MD 02/20/2025 02:04 PM EDT RP Assessment and Plan (1) Decompensated heart failure: Status: Acute patient appears to be in decompensated congestive heart failure based on chest x-ray finding, elevated BNP as well as symptoms of progressive shortness of breath with minimal exertion as well as abdominal distention which is most suggestive of right heart failure. At this point time in needs to be diuresed. I would start him on Lasix 20 mg IV push b.i.d.. Will follow up on echocardiogram done yesterday. Strict intake and output chart needs to be pursued. Continue to monitor electrolytes and renal function as well as BNP. Most likely cause of his heart failure seems to be his atrial flutter with rapid ventricular response which is uncontrolled. Will need rhythm control approach. Will pursue the same. (2) Atrial flutter with rapid ventricular response: Status: Acute Atrial flutter with rapid ventricular response most likely responsible was recent symptoms. At this point time he is on full oral anticoagulation only for 2 weeks. Will need BARRY guided synchronized cardioversion if his breathing remained stable by tomorrow. Will need anesthesia help for his cardioversion. Will schedule him tentatively for tomorrow. Please keep him NPO past midnight. Once he is cardioverted, will need most likely antiarrhythmic drug support with amiodarone. Continue full oral anticoagulation. Can use rate control with low-dose Lopressor 2.5 mg q.6 hours PRN for heart rate although he has history of orthostatic hypotension and closely follow his blood pressure. (3) Pericarditis: Status: Acute Recent pericarditis. Currently on colchicine and continued ibuprofen. Has more than 2 weeks. Can consider stopping ibuprofen at this point time to reduce complications. Usual therapy for nonsteroidals about 2 weeks as he is not having any chest pain syndrome. Can check CRP. Will follow up on echocardiogram. Will have to land colchicine therapy if he had going to started loading him with amiodarone. Will follow with you. Thank you for allowing me to partake in his care Procedures Date of Service Date of Service: 02/21/25
--- NOTE | 2025-02-21 10:42 | MHC.CM.PN ---
CM met with Patient at bedside, in the ED, and addressed GARCIA with him, providing Patient with the original and a copy will be placed on the chart. Patient lives in a house with his and he required no services nor DME TWISTER IN. Home self care is the goal and CM has initiated and will follow for dc planning. PCP is Dr. Khadra Romo nd will transport to home at time of dc.
[2025-02-21] MEDS: Furosemide 20 MG/2 ML VIAL IVPUSH ×2 (10:47→18:12)
--- NOTE | 2025-02-21 12:43 | PC.NURSE ---
Pt reports feeling well. NAD.
--- NOTE | 2025-02-21 15:53 | HO.NURTONUR ---
Pt came to ED for increasing SOB and gen weakness. Found to be in A fib with RVR and maintains this rhythm in 120's. BP's have been soft but patient states this is baseline due to a type of orthostatic hypotension. When seated (even for a long time) BP drops to 80/60's. Pt has been started on eliquis and lasix. Plan is for cardioversion after fluid overload (ro BNP is 3,516) gets under control. Pt also has pericarditis.
--- NOTE | 2025-02-21 17:06 | HO.PM.IMPN ---
Subjective Subjective Date of Service: 02/21/25 Interval History: Reports feels slightly better, but only at rest Feels weak and SOB with ambulation Heart rate continues to be in the 110s to 120s Has not been hungry, limited p.o. intake Continues to complain of abdominal discomfort and bloating Denies chest pain/pressure No palpitations Review of Systems Review of Systems: Yes all other systems are reviewed and are negative Physical Exam Exam: Exam: General: AOx3, no acute distress Resp: Bibasilar crackles CVS: Irregularly irregular rhythm, tachycardic GI: +BS, NT, soft, no distention Skin: Warm, dry Neuro: Cranial nerves II-XII grossly intact bilaterally. Motor grossly intact bilaterally Extremities: No edema Psych: Appropriate affect Vital Signs: Vital Signs: Last Vital Signs Temp 97.8 F 02/21/25 12:46 Pulse 120 H 02/21/25 16:54 Resp 18 02/21/25 16:54 BP 107/81 02/21/25 16:54 Pulse Ox 97 02/21/25 16:54 O2 Del Method Room Air 02/21/25 16:54 BMI result Body Mass Index 24.4 Objective Data Active Medications Acetaminophen (Acetaminophen 325 Mg Tablet) 650 mg PO Q6H PRN PRN Reason: Pain, Mild 1-3,fever,headache Apixaban (Apixaban 5 Mg Tablet) 5 mg PO BID [facility] Last Admin: 02/21/25 09:59 Dose: 5 mg Documented By: ANGELINA Atorvastatin Calcium (Atorvastatin Calcium 80 Mg Tablet) 80 mg PO BEDTIME [facility] Last Admin: 02/20/25 20:44 Dose: 80 mg Documented By: SAYRA Calcium Carbonate (Calcium Carbonate 750 Mg Tab.Chew) 750 mg PO Q4H PRN PRN Reason: Heartburn Colchicine (Colchicine 0.6 Mg Tablet) 0.6 mg PO DAILY [facility] Last Admin: 02/21/25 10:47 Dose: 0.6 mg Documented By: ANGELINA Furosemide (Furosemide 20 Mg/2 Ml Vial) 20 mg IVPUSH BID@0900,1800 [facility]; Protocol Last Admin: 02/21/25 10:47 Dose: 20 mg Documented By: ANGELINA Ibuprofen (Ibuprofen 800 Mg Tablet) 800 mg PO TID [facility] Last Admin: 02/21/25 15:48 Dose: 800 mg Documented By: ANGELINA Lamotrigine (Lamotrigine 100 Mg Tablet) 300 mg PO DAILY JERRY Lamotrigine (Lamotrigine 100 Mg Tablet) 200 mg PO BEDTIME [facility] Magnesium Hydroxide (Milk Of Magnesia 30 Ml Oral.Susp) 30 ml PO DAILY PRN PRN Reason: Constipation Melatonin (Melatonin 3 Mg Tablet) 6 mg PO BEDTIME PRN PRN Reason: Insomnia Omeprazole (Omeprazole 40 Mg Capsule.Dr) 40 mg PO DAILY@0630 [facility] Last Admin: 02/21/25 06:28 Dose: 40 mg Documented By: SAYRA Ropinirole HCl (Ropinirole Hcl 2 Mg Tablet) 2 mg PO BEDTIME [facility] Last Admin: 02/20/25 20:44 Dose: 2 mg Documented By: SAYRA Sodium Chloride (0.9 % Sodium Chloride Flush 3 Ml Syringe) 3 ml IVFLUSH QSHIFT [facility] Last Admin: 02/21/25 15:31 Dose: Not Given Documented By: ANGELINA Non-Admin Reason: Med Not Available Labs 02/21/25 04:13 02/21/25 04:13 Labs: Laboratory Results - last 24 hr 02/20/25 02/21/25 17:08 04:13 MCV 87.1 MCH 28.7 MCHC 33.0 RDW 14.1 Plt Count 264 MPV 11.3 Immature Gran % (Auto) 0.1 Neut % (Auto) 61.9 Lymph % (Auto) 18.3 L [place] % (Auto) 19.3 H Eos % (Auto) 0.3 Baso % (Auto) 0.1 Lymph # (Auto) 1.2 [place] # (Auto) 1.3 H Eos # (Auto) 0.0 Baso # (Auto) 0.0 Abs Immat Gran (auto) 0.01 Absolute Neuts (auto) 4.2 Absolute Nucleated RBC 0.000 Nucleated RBC % (auto) 0.0 Anion Gap 12 Estim Creat Clear Calc 99.2 Estimated GFR > 60 Random Glucose 120 H Calcium 8.3 L Total Bilirubin 0.9 AST 70 H ALT 60 H Alkaline Phosphatase 161 H Total Protein 6.0 L Albumin 3.2 L Urine Color Dark Yellow Urine Appearance Cloudy Urine pH 5.5 Ur Specific [place] >= 1.030 H Urine Protein 100 (2+) H Urine Glucose (UA) Negative Urine Ketones Trace Urine Blood Negative Urine Nitrite Negative Ur Leukocyte Esterase Trace H Urine RBC 0-2 Urine WBC 0-5 Ur Squamous Epith Cells 6-10 Calcium Oxalate Crystal Present Urine Bacteria None Seen Hyaline Casts 11-20 Microbiology Microbiology Results: Microbiology 02/20/25 11:32 Blood Culture - Preliminary Blood - Venous No growth after 24 hours. 02/20/25 11:23 Blood Culture - Preliminary Blood - Venous No growth after 24 hours. Assessment and Plan (1) Decompensated heart failure: Status: Acute Assessment and Plan: Patient is a 69-year-old male with PMH notable for demyelinating polyneuropathy, pericarditis, pericardial effusion, stroke, atrial flutter. He was noted to have atrial flutter with rapid ventricular rate and was sent to the ED for further workup/possible cardioversion in the a.m. as this can not be handled outpatient. He reports his only symptom was feeling a little more frail and otherwise had no sick contacts no further concerns. He was also being worked up for autoimmune diseases. Patient is being admitted for possible cardioversion in the a.m.. Other than EKG revealing atrial flutter with RVR, mildly elevated pro BNP workup unrevealing. Cardiology consulted Atrial flutter with RVR-unknown duration Patient is anticoagulated, not on any rate control medication Cardiology consulted, plan on cardioversion on 02/22 with BARRY in the OR Hold on rate control meds as ED trialed a low dose of 2.5 mg IV metoprolol with significant drop in blood pressure to the low 70s with quick improvement on fluid resuscitation We will monitor on telemetry Troponin WNL NPO from midnight for possible cardioversion in the a.m. Acute CHF exacerbation CXR showing bilateral small pleural effusions and mild interstitial edema BNP 448.7-->3516.5 Lasix 20mg IV bid Follow lytes, I/O, SCr, daily weight Pericardial [id number] Noted on limited echos on 02/03 and 02/06 Continue colchicine Stop Motrin Trend CRP Abd distention/discomfort Pt reports ongoing x2 weeks Unclear etiology: CT of abd/pelvis negative for acute abd, U/S negative for ascites Monitor, treat as above with diuretics Restless leg syndrome Continue ropinirole Continue home Lamictal for possible seizure Pt continues to need hospitalization for persistent symptomatic atrial flutter that will require cardioversion in the morning in the OR. (2) Atrial flutter with rapid ventricular response: Status: Acute Quality Stroke Does the patient have a stroke diagnosis?: No VTE Prior VTE?: No VTE Risk Level:: Medical - moderate - high VTE Device Contraindication: N/A - Device Ordered VTE Drug Contraindication: N/A - Med Ordered
[2025-02-21] MEDS: 0.9 % Sodium Chloride Flush 3 ML SYRINGE IVFLUSH ×2 (20:17)
[2025-02-22] VITALS (9 sets, daily range): BP systolic 92–123; BP diastolic 65–83; PULSE 117–123; RESP 17–18; TEMP 36–37.1; O2SAT 94–98; BMI 24.9
[2025-02-22 07:35] LABS: MANUAL DIFF FLAG NO
[2025-02-22 07:45] LABS: Hematocrit 29.3 % (42.0-52.0); Hemoglobin 9.7 g/dl (14.0-18.0); Imm Gran Abs Auto 0.02 X10*3/uL (0.00-0.03); Imm Gran Pct Auto 0.4 % (0.0-0.4); Lymphocytes Absolute Auto 1.1 X10*3/uL (1.2-4.9); Mean Corpuscular HGB Conc 33.1 g/dl (31.0-36.0); Mean Corpuscular Hemoglobin 28.7 pg (27.0-33.0); Mean Corpuscular Volume 86.7 fL (80.0-98.0); NRBC Abs Auto 0.000 X10*3/uL (0.0-0.012); NRBC Pct Auto 0.0 /100WBC (0.0-0.2); Platelet Count 287 X10*3/uL (160-400); Red Blood Count 3.38 X10*6/uL (4.60-5.80); White Blood Count 5.6 X10*3/uL (4.8-10.8)
[2025-02-22 08:01] LABS: Alanine Aminotransferase 72 U/L (0-40); Albumin Level 3.2 g/dL (3.5-5.0); Alkaline Phosphatase 177 U/L (39-117); Anion Gap 11 (12-20); Aspartate Amino Transferase 77 U/L (5-37); Blood Urea Nitrogen 23 mg/dL (9-16); Calcium 8.3 mg/dL (8.4-10.2); Carbon Dioxide 26 mmol/L (22-29); Chloride 105 mmol/L (96-108); Creatinine Clr Calc Pharmacy 95.4; Estimated Glomerular Filt Rate > 60; Potassium 3.4 mmol/L (3.3-5.1); Sodium 139 mmol/L (135-145); Total Protein 6.1 g/dL (6.5-8.0)
--- NOTE | 2025-02-22 08:11 | MHC.CM.PN ---
Patient was changed to INPATIENT yesterday. CM met with Patient this morning and addressed IMM with him, providing Patient with the original and a copy has been placed on the chart.
[2025-02-22] MEDS: Furosemide 20 MG/2 ML VIAL IVPUSH (08:51)
[2025-02-22] MEDS: 0.9 % Sodium Chloride Flush 3 ML SYRINGE IVFLUSH ×2 (08:52→20:13)
--- NOTE | 2025-02-22 09:14 | HO.ANESPROP2 ---
Documented by User: Jasmyne Eduardo NP 02/22/25 09:23 HPI - Anesthesia Eval Consult details Narrative: 69 yr old male for cardioversion, BARRY Atrial flutter with RVR-unknown duration: on eliquis, not on rate control as metoprolol caused hypotension Acute CHF exacerbation: CXR showing bilateral small pleural effusions and mild interstitial edema; BNP 448.7-->3516.5; given Lasix; 20mg IV bid CVA: 01/2025, brain MRI showed Solitary very small focus of cortical restricted diffusion in posterior aspect left frontal lobe as described consistent with minimal focal acute ischemia. CIDP: follows with neurologist in [facility] Active Problems Active Problems: All Active Problems Decompensated heart failure (Acute) Pleural effusion (Acute) Chronic pericardial effusion (Acute) Atrial flutter (Acute) Pericardial effusion (Acute) Recent cerebrovascular accident (Acute) Pericarditis (Acute) Atrial flutter with rapid ventricular response (Acute) Pyuria (Acute) Cognitive disorder (Acute) Gait disorder (Acute) Parkinson's disease (Acute) Past Medical History Medical History Recent cerebrovascular accident Chronic pericardial effusion Acute pericardial effusion Numbness and tingling Pericarditis Peripheral demyelinating neuropathy JACOB positive Orthostatic hypertension Restless legs syndrome CVA (cerebral vascular accident) Cognitive disorder Back pain Anxiety Depression Hyperlipidemia Non-melanoma skin cancer Family History Family History Father Myocardial infarction Family/Other Cancer Family/Other Breast cancer Mother Skin cancer Surgical History Surgical History H/O cervical spine surgery History of ear surgery Social History Social History Household Members: Spouse Housing: House Are you a primary direct care professional to a significant other at home: No Do you presently have visiting nurse or other home services: No Alcohol intake: current Alcohol intake frequency: holidays/special occasions only Alcohol type: beer and hard liquor Comment: Pt declining bed alarm at this time. 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 Allergies Allergy/AdvReac Type Severity Reaction Status Date / Time No Known Allergies Allergy Verified 02/20/25 11:09 Active Medications: Current Medications Acetaminophen (Acetaminophen 325 Mg Tablet) 650 mg PO Q6H PRN PRN Reason: Pain, Mild 1-3,fever,headache Apixaban (Apixaban 5 Mg Tablet) 5 mg PO BID [facility] Last Admin: 02/22/25 08:49 Dose: 5 mg Atorvastatin Calcium (Atorvastatin Calcium 80 Mg Tablet) 80 mg PO BEDTIME [facility] Last Admin: 02/21/25 20:16 Dose: 80 mg Calcium Carbonate (Calcium Carbonate 750 Mg Tab.Chew) 750 mg PO Q4H PRN PRN Reason: Heartburn Colchicine (Colchicine 0.6 Mg Tablet) 0.6 mg PO DAILY [facility] Last Admin: 02/22/25 08:50 Dose: 0.6 mg Furosemide (Furosemide 20 Mg/2 Ml Vial) 20 mg IVPUSH BID@0900,1800 [facility]; Protocol Last Admin: 02/22/25 08:51 Dose: 20 mg Lamotrigine (Lamotrigine 100 Mg Tablet) 300 mg PO DAILY [facility] Last Admin: 02/22/25 08:50 Dose: 300 mg Lamotrigine (Lamotrigine 100 Mg Tablet) 200 mg PO BEDTIME [facility] Last Admin: 02/21/25 20:17 Dose: 200 mg Magnesium Hydroxide (Milk Of Magnesia 30 Ml Oral.Susp) 30 ml PO DAILY PRN PRN Reason: Constipation Melatonin (Melatonin 3 Mg Tablet) 6 mg PO BEDTIME PRN PRN Reason: Insomnia Omeprazole (Omeprazole 40 Mg Capsule.Dr) 40 mg PO DAILY@0630 [facility] Last Admin: 02/22/25 06:06 Dose: 40 mg Ropinirole HCl (Ropinirole Hcl 2 Mg Tablet) 2 mg PO BEDTIME [facility] Last Admin: 02/21/25 20:16 Dose: 2 mg Sodium Chloride (0.9 % Sodium Chloride Flush 3 Ml Syringe) [facility] Last Admin: 02/22/25 08:52 Dose: 3 ml Home Medications ?Medication ?Instructions ?Recorded ?Confirmed ?Last Taken ?Type colchicine 0.6 mg tablet 0.6 mg PO DAILY 01/17/25 02/20/25 02/20/25 History ropinirole 2 mg tablet 2 mg PO BEDTIME 02/03/25 02/20/25 02/19/25 History lamotrigine 100 mg tablet 100 mg PO DAILY 02/20/25 02/20/25 02/20/25 History lamotrigine 200 mg tablet 200 mg PO BID 02/20/25 02/20/25 02/20/25 History (Lamictal) Exam Height,Weight and Vital Signs: Height 6 ft Weight 83.2 kg Last Vital Signs Temp 97.9 F 02/22/25 08:00 Pulse 120 H 02/22/25 08:00 Resp 17 02/22/25 08:00 BP 98/68 02/22/25 08:00 Pulse Ox 95 02/22/25 08:00 O2 Del Method Room Air 02/22/25 08:00 Pertinent Lab Results Pertinent Lab Results: Laboratory Tests 02/20/25 02/20/25 02/20/25 11:14 11:23 11:24 WBC 7.2 RBC 3.70 L Hgb 10.7 L Hct 32.7 L MCV 88.4 MCH 28.9 MCHC 32.7 RDW 13.7 Plt Count 311 MPV 10.8 Immature Gran % (Auto) 0.6 H Neut % (Auto) 66.7 Lymph % (Auto) 12.0 L [place] % (Auto) 20.5 H Eos % (Auto) 0.1 Baso % (Auto) 0.1 Lymph # (Auto) 0.9 L [place] # (Auto) 1.5 H Eos # (Auto) 0.0 Baso # (Auto) 0.0 Abs Immat Gran (auto) 0.04 H Absolute Neuts (auto) 4.8 Absolute Nucleated RBC 0.000 Nucleated RBC % (auto) 0.0 Smear Tech's Comments VERIFIED ESR 48 H PT 31.3 H D INR 2.7 H Sodium 138 Potassium 3.5 Chloride 103 Carbon Dioxide 22 Anion Gap 17 BUN 18 H Creatinine 0.89 Estim Creat Clear Calc 84.7 Estimated GFR > 60 POC Glucose 135 H Random Glucose 122 H Lactic Acid 2.0 Calcium 8.5 Magnesium 2.3 Total Bilirubin 1.1 H AST 55 H ALT 52 H Alkaline Phosphatase 167 H Troponin I High Sens 6.7 D C-Reactive Protein 20.94 H NT-Pro-B Natriuret Pep 3516.5 H Total Protein 6.6 Albumin 3.6 Urine Color Urine Appearance Urine pH Ur Specific [place] Urine Protein Urine Glucose (UA) Urine Ketones Urine Blood Urine Nitrite Ur Leukocyte Esterase Urine RBC Urine WBC Ur Squamous Epith Cells Calcium Oxalate Crystal Urine Bacteria Hyaline Casts 02/20/25 02/21/25 02/22/25 17:08 04:13 07:14 WBC 6.8 5.6 RBC 3.34 L 3.38 L Hgb 9.6 L 9.7 L Hct 29.1 L 29.3 L MCV 87.1 86.7 MCH 28.7 28.7 MCHC 33.0 33.1 RDW 14.1 14.1 Plt Count 264 287 MPV 11.3 11.2 Immature Gran % (Auto) 0.1 0.4 Neut % (Auto) 61.9 59.1 Lymph % (Auto) 18.3 L 20.5 Moore % (Auto) 19.3 H 18.9 H Eos % (Auto) 0.3 0.9 Baso % (Auto) 0.1 0.2 Lymph # (Auto) 1.2 1.1 L [place] # (Auto) 1.3 H 1.1 Eos # (Auto) 0.0 0.1 Baso # (Auto) 0.0 0.0 Abs Immat Gran (auto) 0.01 0.02 Absolute Neuts (auto) 4.2 3.3 Absolute Nucleated RBC 0.000 0.000 Nucleated RBC % (auto) 0.0 0.0 Smear Tech's Comments ESR PT INR Sodium 137 139 Potassium 3.8 3.4 Chloride 106 105 Carbon Dioxide 23 26 Anion Gap 12 11 L BUN 20 H 23 H Creatinine 0.76 0.79 Estim Creat Clear Calc 99.2 95.4 Estimated GFR > 60 > 60 POC Glucose Random Glucose 120 H 108 Lactic Acid Calcium 8.3 L 8.3 L Magnesium Total Bilirubin 0.9 0.8 AST 70 H 77 H ALT 60 H 72 H Alkaline Phosphatase 161 H 177 H Troponin I High Sens C-Reactive Protein 17.33 H NT-Pro-B Natriuret Pep 1991.2 H Total Protein 6.0 L 6.1 L Albumin 3.2 L 3.2 L Urine Color Dark Yellow Urine Appearance Cloudy Urine pH 5.5 Ur Specific [place] >= 1.030 H Urine Protein 100 (2+) H Urine Glucose (UA) Negative Urine Ketones Trace Urine Blood Negative Urine Nitrite Negative Ur Leukocyte Esterase Trace H Urine RBC 0-2 Urine WBC 0-5 Ur Squamous Epith Cells 6-10 Calcium Oxalate Crystal Present Urine Bacteria None Seen Hyaline Casts 11-20 Narrative Narrative: Limited echos done 02/03, 02/06 Procedure Date: 02/06/2025 Procedure Type: [place]ansthoracic [place] [facility] [place]: 182.88 cm Weight: 84.37 kg BSA: 2.07 m2 Heart Rate: 51 bpm BP: 130 / 64 mmHg Lpc: SHYLA Referring MD: Fani Turpin MD Synthetic Filament Extruder: Don Putnam MD Symptoms: Interval evaluation of pericardial effusion Study Quality: Adequate/limited ordered ECG Rhythm: Bradycardia Conclusions: - [id number] pericardial effusion without tamponade EKG 02/20/25 Vent. Rate : 120 BPM Atrial Rate : 240 BPM P-R Int : * ms QRS Dur : 84 ms QT Int : 328 ms P-R-T Axes : 90 70 243 degrees QTcB Int : 463 ms Atrial flutter with 2:1 A-V conduction ST & T wave abnormality, consider anterolateral ischemia Abnormal ECG When compared with ECG of 19-Feb-2025 01:41, Atrial flutter has replaced Sinus rhythm Vent. rate has increased by 44 bpm Non-specific change in ST segment in Inferior leads ST more depressed Anterior leads Documented by User: Hoa Valle MD 02/22/25 13:41 [facility] Past Medical History Medical History Recent cerebrovascular accident Chronic pericardial effusion Acute pericardial effusion Numbness and tingling Pericarditis Peripheral demyelinating neuropathy JACOB positive Orthostatic hypertension Restless legs syndrome CVA (cerebral vascular accident) Cognitive disorder Back pain Anxiety Depression Hyperlipidemia Non-melanoma skin cancer Family History Family History Father Myocardial infarction Family/Other Cancer Family/Other Breast cancer Mother Skin cancer Surgical History Surgical History H/O cervical spine surgery History of ear surgery History of Problems with Anesthesia: No Social History Social History Household Members: Spouse Housing: House Are you a primary direct care professional to a significant other at home: No Do you presently have visiting nurse or other home services: No Alcohol intake: current Alcohol intake frequency: holidays/special occasions only Alcohol type: beer and hard liquor Comment: Pt declining bed alarm at this time. 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 Allergies Allergy/AdvReac Type Severity Reaction Status Date / Time No Known Allergies Allergy Verified 02/20/25 11:09 Home Medications ?Medication ?Instructions ?Recorded ?Confirmed ?Last Taken ?Type colchicine 0.6 mg tablet 0.6 mg PO DAILY 01/17/25 02/20/25 02/20/25 History ropinirole 2 mg tablet 2 mg PO BEDTIME 02/03/25 02/20/25 02/19/25 History lamotrigine 100 mg tablet 100 mg PO DAILY 02/20/25 02/20/25 02/20/25 History lamotrigine 200 mg tablet 200 mg PO BID 02/20/25 02/20/25 02/20/25 History (Lamictal) Exam Airway Mallampati Class: III TM Dist: >3cm Neck ROM: Full Loose/Missing/Broken Teeth: No Heart: RRR Lungs: CTA Assessment and Plan Assessment Anesthesia Assessment: Anesthesia Plan Discussed and Chart Reviewed Final Anesthetic Review History of Problems with Anesthesia: No NPO: Yes ASA Class: III Final Preanesthetic Review: Meds/Allgs Chart Reviewed, Consent Obtained/Reviewed and Anes Risks/Benef Reviewed Patient Risk: Intermediate Procedure Risk: Intermediate Anesthetic Plan Anesthetic Plan: MAC: Disposition: Standard PACU
--- NOTE | 2025-02-22 11:35 | P.PNCA_ITS ---
Subjective Subjective Date of Service: 02/22/25 Principal diagnosis: CHF, persistent atrial flutter. Interval history: Patient remains with persistent tachycardia at 120 beats per minute consistent with atrial flutter. Has diuresed about 1 L. BNP is downtrending. His breathing has improved although still short of breath. However his blood pressures been on lower side and he has not been able to get much rate lowering medications at this point in time. Yesterday his blood pressures in the 60s. He also was lightheaded and felt weak. Remains NPO. Review of Systems Constitutional: Reports weakness Eyes: Reports no additional eye complaints Cardiovascular: Denies chest pain, Reports rapid heart rate, Denies leg edema, Reports lightheadedness and Reports dyspnea on exertion Respiratory: Reports no additional respiratory complaints and Reports dyspnea on exertion Gastrointestinal: Reports no additional gastrointestinal complaints Musculoskeletal: Reports no additional musculoskeletal complaints Reports weakness Physical Exam Vital Signs: Last Vital Signs Temp 97.9 F 02/22/25 08:00 Pulse 120 H 02/22/25 08:00 Resp 17 02/22/25 08:00 BP 98/68 02/22/25 08:00 Pulse Ox 95 02/22/25 08:00 O2 Del Method Room Air 02/22/25 08:00 BMI result Body Mass Index 24.9 Const General: cooperative, comfortable, no acute distress, alert and awake Nutritional Appearance: average body habitus Orientation/consciousness: patient oriented x3 HEENT Head: Yes normocephalic and Yes atraumatic Neck Neck: Yes trachea midline, Yes supple and Yes no JVD Resp Effort & Inspection: normal respiratory effort Auscultation: diminished lung sounds Cardio Jugular venous distension: JVD Rate: tachycardic Rhythm: abnormal rhythm Heart sounds: S1 normal heart sound present, S2 normal heart sound present, no click, no gallops and no murmurs GI Auscultation: normal bowel sounds Skin General skin exam: no rashes or lesions noted Neuro General: patient oriented x3 and no focal motor deficits Extrem General: Yes no clubbing, cyanosis or edema Objective Labs and Meds 02/22/25 07:14 02/22/25 07:14 Lab results: Laboratory Results - last 24 hr 02/22/25 07:14 WBC 5.6 RBC 3.38 L Hgb 9.7 L Hct 29.3 L MCV 86.7 MCH 28.7 MCHC 33.1 RDW 14.1 Plt Count 287 MPV 11.2 Immature Gran % (Auto) 0.4 Neut % (Auto) 59.1 Lymph % (Auto) 20.5 [place] % (Auto) 18.9 H Eos % (Auto) 0.9 Baso % (Auto) 0.2 Lymph # (Auto) 1.1 L [place] # (Auto) 1.1 Eos # (Auto) 0.1 Baso # (Auto) 0.0 Abs Immat Gran (auto) 0.02 Absolute Neuts (auto) 3.3 Absolute Nucleated RBC 0.000 Nucleated RBC % (auto) 0.0 Sodium 139 Potassium 3.4 Chloride 105 Carbon Dioxide 26 Anion Gap 11 L BUN 23 H Creatinine 0.79 Estim Creat Clear Calc 95.4 Estimated GFR > 60 Random Glucose 108 Calcium 8.3 L Total Bilirubin 0.8 AST 77 H ALT 72 H Alkaline Phosphatase 177 H C-Reactive Protein 17.33 H NT-Pro-B Natriuret Pep 1991.2 H Total Protein 6.1 L Albumin 3.2 L Progress Note: A&P Assessment and plan (1) Atrial flutter with rapid ventricular response: Status: Acute Assessment and Plan: Persistent atrial flutter in this elderly gentleman which is most likely cause for his symptoms with low blood pressure. 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 Most likely will require antiarrhythmic drug therapy and most likely most effective will be amiodarone. Will need to check with pharmacy about interaction with other drug such as colchicine and propranolol. Continue full oral anticoagulation with Eliquis. (2) Decompensated heart failure: Status: Acute Assessment and Plan: Symptoms suggestive of decompensated congestive heart failure with improving BNP with diuresis. His diuretic output has been slowing. His blood pressure is on the lower side. Not much room to uptitrate medications at this point time. Continue strict intake and output chart. Continue monitor renal function as well as BNP. Pursue synchronized cardioversion as above and maintain rhythm to help his overall cardiac condition. Also check for pericardial effusion by BARRY. Will follow with you Time Spent With Patient Time: Total time managing care of this patient today ____ minutes. Progress Note: Quality Stroke Does the patient have a stroke diagnosis?: No Procedures Date of Service Date of Service: 02/22/25
--- NOTE | 2025-02-22 11:38 | CA_ITS ---
Transthoracic Echocardiogram Patient (Last, First, Middle): Chilo Lee, Gender: Male Date of : 1955 Age: 69 Procedure Date: 02/22/2025 Procedure Type: Transthoracic Echocardiogram Location: [facility] [place] Height: 182.88 cm Weight: 83.01 kg BSA: 2.05 m2 Heart Rate: 119 bpm Steward/Stewardess Smoke Room: AC Referring MD: Don Putnam MD Sharepoint Solutions Architect: Don Putnam MD Symptoms: Pericardial effusion Study Quality: Adequate/limited ordered ECG Rhythm: Atrial flutter Conclusions: - Large pericardial effusion present with IVC plethora and RV diastolic compression. Findings Pericardium/Pleural There is a large circumferential pericardial effusion. The inferior vena cava is dilated with reduced respiratory variability. No discernable variation of the mitral valve and tricuspid valve Doppler velocities with respiration. Diastolic collapse of the right ventricle is seen. Prior Study Comparison Changes noted compared to prior study dated: 02/06/2025. Pericardial effusion in his large Measurements Tricuspid Valve RA Press: 15.00 Updated in Other Vendor System with Status of Final Don Putnam MD electronically signed on 02/22/2025 3:20:33 PM with status of Final
--- NOTE | 2025-02-22 14:36 | PM.EVENT ---
Event Note Date of Service: 02/22/25 Event Note: Patient was brought to the OR for BARRY/cardioversion. However prior to performing sedation we did a bedside limited transthoracic echocardiogram to see presence of pericardial effusion. This is showed large pericardial effusion especially in his subcostal view around the right-sided chambers with early RV diastolic collapse with IVC was plethoric.. Surprisingly there was no significant respiratory variation. Although we did cancel the BARRY cardioversion for now and will pursue pericardiocentesis. Discussed with Dr. Stearns who will perform this procedure tomorrow. Post procedure on Thursday if his pericardial effusion has improved and he remains in atrial flutter will pursue BARRY cardioversion on Thursday. Please discontinue his Lasix and hold his Eliquis for today. Keep him NPO past midnight. Case discussed with hospitalist team Time Spent With Patient Time: Total time managing care of this patient today ____ minutes.
--- NOTE | 2025-02-22 16:13 | MHC.CM.PN ---
EMR REVIEWED AND PER MD ROUNDS, PATIENT IS NOT MEDICALLY CLEARED FOR DISCHARGE DUE TO MANAGEMENT OF ATRIAL FLUTTER WITH RVR, PLAN WAS FOR CARDIOVERSION TODAY, HOWEVER IT WAS CANCELLED DUE TO THE DISCOVERY OF PERICARDIAL EFFUSION, PATIENT NOW NEEDS PERICARDIOCENTESIS.
--- NOTE | 2025-02-22 16:23 | HO.PM.IMPN ---
Subjective Subjective Date of Service: 02/22/25 Interval History: Continues to be tachycardic with aflutter in the 120s Diuresed approx 1L Still feels weak, SOB Occasional lightheadedness No chest pain Some palpitations Was set to have cardioversion in the afternoon but was aborted as pt was noted to have large pericardial effusion on pre-op limited echo Plan is to have IR perform pericardiocentesis tomorrow afternoon Review of Systems Review of Systems: Yes all other systems are reviewed and are negative Physical Exam Exam: Exam: General: AOx3, no acute distress Resp: CTA bilaterally CVS: Irregularly irregular rhythm, tachycardic GI: +BS, NT, no distention Skin: Warm, dry Neuro: Cranial nerves II-XII grossly intact bilaterally. Motor grossly intact bilaterally Extremities: No edema Psych: Anxious Vital Signs: Vital Signs: Last Vital Signs Temp 98.1 F 02/22/25 15:50 Pulse 120 H 02/22/25 15:50 Resp 18 02/22/25 15:50 BP 96/70 02/22/25 15:50 Pulse Ox 98 02/22/25 15:50 O2 Del Method Room Air 02/22/25 15:50 BMI result Body Mass Index 24.9 Objective Data Active Medications Acetaminophen (Acetaminophen 325 Mg Tablet) 650 mg PO Q6H PRN PRN Reason: Pain, Mild 1-3,fever,headache Apixaban (Apixaban 5 Mg Tablet) 5 mg PO BID JERRY On Hold: 02/22/25 15:57 Last Admin: 02/22/25 08:49 Dose: 5 mg Documented By: BRYAN Atorvastatin Calcium (Atorvastatin Calcium 80 Mg Tablet) 80 mg PO BEDTIME [facility] Last Admin: 02/21/25 20:16 Dose: 80 mg Documented By: JAVED Calcium Carbonate (Calcium Carbonate 750 Mg Tab.Chew) 750 mg PO Q4H PRN PRN Reason: Heartburn Colchicine (Colchicine 0.6 Mg Tablet) 0.6 mg PO DAILY [facility] Last Admin: 02/22/25 08:50 Dose: 0.6 mg Documented By: BRYAN Furosemide (Furosemide 20 Mg/2 Ml Vial) 20 mg IVPUSH BID@0900,1800 [facility]; Protocol On Hold: 02/22/25 15:57 Last Admin: 02/22/25 08:51 Dose: 20 mg Documented By: BRYAN Lamotrigine (Lamotrigine 100 Mg Tablet) 300 mg PO DAILY [facility] Last Admin: 02/22/25 08:50 Dose: 300 mg Documented By: BRYAN Lamotrigine (Lamotrigine 100 Mg Tablet) 200 mg PO BEDTIME [facility] Last Admin: 02/21/25 20:17 Dose: 200 mg Documented By: JAVED Magnesium Hydroxide (Milk Of Magnesia 30 Ml Oral.Susp) 30 ml PO DAILY PRN PRN Reason: Constipation Melatonin (Melatonin 3 Mg Tablet) 6 mg PO BEDTIME PRN PRN Reason: Insomnia Naloxone HCl (Naloxone Hcl 0.4 Mg/Ml Vial) 0.04 mg IVPUSH Q5M PRN PRN Reason: Excessive sedation or RR < 8 Omeprazole (Omeprazole 40 Mg Capsule.Dr) 40 mg PO DAILY@0630 [facility] Last Admin: 02/22/25 06:06 Dose: 40 mg Documented By: JAVED Ropinirole HCl (Ropinirole Hcl 2 Mg Tablet) 2 mg PO BEDTIME [facility] Last Admin: 02/21/25 20:16 Dose: 2 mg Documented By: JAVED Sodium Chloride (0.9 % Sodium Chloride Flush 3 Ml Syringe) 3 ml IVFLUSH QSHIFT [facility] Last Admin: 02/22/25 08:52 Dose: 3 ml Documented By: BRYAN Labs 02/22/25 07:14 02/22/25 07:14 Labs: Laboratory Results - last 24 hr 02/22/25 07:14 MCV 86.7 MCH 28.7 MCHC 33.1 RDW 14.1 Plt Count 287 MPV 11.2 Immature Gran % (Auto) 0.4 Neut % (Auto) 59.1 Lymph % (Auto) 20.5 [place] % (Auto) 18.9 H Eos % (Auto) 0.9 Baso % (Auto) 0.2 Lymph # (Auto) 1.1 L [place] # (Auto) 1.1 Eos # (Auto) 0.1 Baso # (Auto) 0.0 Abs Immat Gran (auto) 0.02 Absolute Neuts (auto) 3.3 Absolute Nucleated RBC 0.000 Nucleated RBC % (auto) 0.0 Anion Gap 11 L Estim Creat Clear Calc 95.4 Estimated GFR > 60 Random Glucose 108 Calcium 8.3 L Total Bilirubin 0.8 AST 77 H ALT 72 H Alkaline Phosphatase 177 H C-Reactive Protein 17.33 H NT-Pro-B Natriuret Pep 1991.2 H Total Protein 6.1 L Albumin 3.2 L Microbiology Microbiology Results: Microbiology 02/20/25 11:32 Blood Culture - Preliminary Blood - Venous No growth after 48 hours. 02/20/25 11:23 Blood Culture - Preliminary Blood - Venous No growth after 48 hours. Assessment and Plan (1) Atrial flutter with rapid ventricular response: Status: Acute (2) Pericardial effusion: Status: Acute Plan Patient is a 69-year-old male with PMH notable for demyelinating polyneuropathy, pericarditis, pericardial effusion, stroke, atrial flutter. He was noted to have atrial flutter with rapid ventricular rate and was sent to the ED for further workup/possible cardioversion in the a.m. as this can not be handled outpatient. He reports his only symptom was feeling a little more frail and otherwise had no sick contacts no further concerns. He was also being worked up for autoimmune diseases. Patient is being admitted for possible cardioversion in the a.m.. Other than EKG revealing atrial flutter with RVR, mildly elevated pro BNP workup unrevealing. Cardiology consulted Symptomatic atrial flutter with RVR-unknown duration Patient anticoagulated, not previously on any rate control medication due to orthostatic hypotension Cardiology consulted, BARRY guided cardioversion on 02/22 aborted due to large pericardial effusion Hold on rate control meds as ED trialed a low dose of 2.5 mg IV metoprolol with significant drop in blood pressure to the low 70s with quick improvement on fluid resuscitation We will monitor on telemetry Troponins WNL Plan for possible cardioversion on Thursday, 02/24 Hold Eliquis due to pericardiocentesis Pericardial effusion [id number] effusion noted on limited echos on 02/03 and 02/06 Pre-op limited echo showed effusion now large, cardioversion aborted Plan on pericardiocentesis by IR on 02/23 Check pericardial fluid studies Continue colchicine, stop Motrin Trend CRP Acute CHF exacerbation CXR showing bilateral small pleural effusions and mild interstitial edema BNP 448.7-->3516.5-->1991.2 Hold Lasix 20mg IV bid for now Follow lytes, I/O, SCr, daily weight Abd distention/discomfort Pt reports ongoing x2 weeks Unclear etiology: CT of abd/pelvis negative for acute abd, U/S negative for ascites Monitor, treat as above with diuretics Restless leg syndrome Continue ropinirole Continue home Lamictal for possible seizure Pt continues to need hospitalization for persistent symptomatic atrial flutter and large pericardial effusion that will require pericardialcentesis in the morning and possilbe cardioversion the following day. Quality Stroke Does the patient have a stroke diagnosis?: No VTE Prior VTE?: No VTE Risk Level:: Medical - moderate - high VTE Device Contraindication: N/A - Device Ordered VTE Drug Contraindication: N/A - Med Ordered
[2025-02-22] MEDS: Potassium Chloride Packet 20 MEQ PACKET 40 MEQ PO (20:11)
[2025-02-23] VITALS (14 sets, daily range): BP systolic 108–134; BP diastolic 66–93; PULSE 108–118; RESP 16–20; TEMP 36.4–37.2; O2SAT 93–99; BMI 24.9
[2025-02-23 06:48] LABS: MANUAL DIFF FLAG NO
[2025-02-23 07:03] LABS: Hematocrit 31.5 % (42.0-52.0); Hemoglobin 10.2 g/dl (14.0-18.0); Imm Gran Abs Auto 0.03 X10*3/uL (0.00-0.03); Imm Gran Pct Auto 0.4 % (0.0-0.4); Lymphocytes Absolute Auto 1.3 X10*3/uL (1.2-4.9); Mean Corpuscular HGB Conc 32.4 g/dl (31.0-36.0); Mean Corpuscular Hemoglobin 28.5 pg (27.0-33.0); Mean Corpuscular Volume 88.0 fL (80.0-98.0); NRBC Abs Auto 0.000 X10*3/uL (0.0-0.012); NRBC Pct Auto 0.0 /100WBC (0.0-0.2); Platelet Count 308 X10*3/uL (160-400); Red Blood Count 3.58 X10*6/uL (4.60-5.80); White Blood Count 7.5 X10*3/uL (4.8-10.8)
[2025-02-23 07:52] LABS: NT Pro B Type Natriuretic Pept 1449.8 pg/mL (<300)
[2025-02-23 07:54] LABS: Alanine Aminotransferase 107 U/L (0-40); Albumin Level 3.4 g/dL (3.5-5.0); Alkaline Phosphatase 209 U/L (39-117); Aspartate Amino Transferase 121 U/L (5-37); Blood Urea Nitrogen 26 mg/dL (9-16); Calcium 8.6 mg/dL (8.4-10.2); Creatinine Clr Calc Pharmacy 93.1; Estimated Glomerular Filt Rate > 60; Total Protein 6.5 g/dL (6.5-8.0)
[2025-02-23 08:02] LABS: Anion Gap 13 (12-20); Carbon Dioxide 26 mmol/L (22-29); Chloride 104 mmol/L (96-108); Potassium 4.7 mmol/L (3.3-5.1); Sodium 138 mmol/L (135-145)
[2025-02-23] MEDS: 0.9 % Sodium Chloride Flush 3 ML SYRINGE IVFLUSH (08:06)
--- NOTE | 2025-02-23 11:41 | PM.PNCARD ---
Subjective Subjective Date of Service: 02/23/25 Principal diagnosis: CHF, persistent atrial flutter, pericardial effusion Interval history: Patient is still feels weak and tired, lowish blood pressure. Remains in atrial flutter with rapid ventricular response. Not moving out much. Jarod cardioversion was canceled yesterday due to presence of large pericardial effusion with some early tamponade physiology. His Eliquis and Lasix has been withheld and is planned to undergo pericardiocentesis today Review of Systems Constitutional: Reports weakness Eyes: Reports no additional eye complaints Cardiovascular: Denies chest pain, Reports rapid heart rate, Reports lightheadedness, Reports Loss of Consciousness and Reports dyspnea on exertion Respiratory: Reports dyspnea on exertion Gastrointestinal: Reports no additional gastrointestinal complaints Musculoskeletal: Reports no additional musculoskeletal complaints Reports system reviewed and no additional complaints, except as documented and Reports weakness Physical Exam Vital Signs: Last Vital Signs Temp 97.6 F 02/23/25 11:03 Pulse 115 H 02/23/25 11:03 Resp 18 02/23/25 11:03 BP 113/74 02/23/25 11:03 Pulse Ox 95 02/23/25 11:03 O2 Del Method Room Air 02/23/25 11:03 BMI result Body Mass Index 24.9 Const General: cooperative, comfortable, no acute distress, alert and awake Nutritional Appearance: average body habitus Orientation/consciousness: patient oriented x3 HEENT Head: Yes normocephalic and Yes atraumatic Neck Neck: Yes trachea midline, Yes supple and Yes no JVD Resp Effort & Inspection: normal respiratory effort Auscultation: diminished lung sounds Cardio Jugular venous distension: JVD Rate: tachycardic Rhythm: abnormal rhythm Heart sounds: S1 normal heart sound present, S2 normal heart sound present, no click, no gallops and no murmurs GI Auscultation: normal bowel sounds Skin General skin exam: no rashes or lesions noted Neuro General: patient oriented x3 and no focal motor deficits Extrem General: Yes no clubbing, cyanosis or edema Objective Labs and Meds 02/23/25 06:34 02/23/25 06:34 Lab results: Laboratory Results - last 24 hr 02/23/25 06:34 WBC 7.5 RBC 3.58 L Hgb 10.2 L Hct 31.5 L MCV 88.0 MCH 28.5 MCHC 32.4 RDW 14.2 Plt Count 308 MPV 11.1 Immature Gran % (Auto) 0.4 Neut % (Auto) 66.0 Lymph % (Auto) 17.6 L [place] % (Auto) 15.7 H Eos % (Auto) 0.3 Baso % (Auto) 0.0 Lymph # (Auto) 1.3 [place] # (Auto) 1.2 Eos # (Auto) 0.0 Baso # (Auto) 0.0 Abs Immat Gran (auto) 0.03 Absolute Neuts (auto) 4.9 Absolute Nucleated RBC 0.000 Nucleated RBC % (auto) 0.0 Sodium 138 Potassium 4.7 D Chloride 104 Carbon Dioxide 26 Anion Gap 13 BUN 26 H Creatinine 0.81 Estim Creat Clear Calc 93.1 Estimated GFR > 60 Random Glucose 112 Calcium 8.6 Total Bilirubin 1.0 AST 121 H ALT 107 H Alkaline Phosphatase 209 H NT-Pro-B Natriuret Pep 1449.8 H Total Protein 6.5 Albumin 3.4 L Progress Note: A&P Assessment and plan (1) Pericardial effusion: Status: Acute Assessment and Plan: Pericardial effusion which appears to be large by echocardiogram with early tamponade physiology. He is scheduled to undergo pericardiocentesis today. I would put her pericardial drainage catheter in as well. I think this should improve his hemodynamics in his heart failure symptoms significantly. See below. Once pericardial drain has been placed I would consider restarting oral anticoagulation therapy if possible. Discus with IR about the same. 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 (2) Atrial flutter with rapid ventricular response: Status: Acute Assessment and Plan: Atrial flutter with rapid ventricular response, currently pursuing no therapy and watching the response to pericardiocentesis. If he converts back to sinus rhythm on in his own will pursue rhythm control approach with help of amiodarone. Otherwise will pursue JAROD guided synchronized cardioversion if that has no recollection of pericardial effusion by a limited echocardiogram tomorrow. Keep him NPO past midnight. Will tentatively schedule him for JAROD guided cardioversion. (3) Decompensated heart failure: Status: Acute Assessment and Plan: Decompensated congestive heart failure most likely due to rapid atrial flutter with tamponade physiology. I would hold off on diuretic regimen at this point in time. Follow closely response to bradycardia centesis which should lead to improvement in his symptoms. Will follow with you Time Spent With Patient Time: Total time managing care of this patient today ____ minutes. Progress Note: Quality Stroke Does the patient have a stroke diagnosis?: No Procedures Date of Service Date of Service: 02/23/25
--- NOTE | 2025-02-23 15:49 | P.PNIM_ITS ---
Subjective Subjective Date of Service: 02/23/25 Interval History: Pt reports had some nausea and vomiting after potassium drink Otherwise reports feels ?okay? Continues to experience SOB with exertion Denies chest pain or pressure No tachycardia Abdominal pain better Review of Systems Review of Systems: Yes all other systems are reviewed and are negative Physical Exam 2 Exam: Exam: General: AOx3, no acute distress Resp: Left basilar rales CVS: Irregularly irregular rhythm, tachycardic GI: +BS, NT, no distention Skin: Warm, dry Neuro: Cranial nerves II-XII grossly intact bilaterally. Motor grossly intact bilaterally Extremities: No edema Psych: Anxious Vital Signs: Vital Signs: Last Vital Signs Temp 97.6 F 02/23/25 11:03 Pulse 109 H 02/23/25 15:42 Resp 20 02/23/25 15:42 BP 117/80 02/23/25 15:42 Pulse Ox 99 02/23/25 15:42 O2 Del Method Nasal Cannula 02/23/25 15:42 O2 Flow Rate 2 02/23/25 15:42 BMI result Body Mass Index 24.9 Objective Data Active Medications Acetaminophen (Acetaminophen 325 Mg Tablet) 650 mg PO Q6H PRN PRN Reason: Pain, Mild 1-3,fever,headache Apixaban (Apixaban 5 Mg Tablet) 5 mg PO BID [facility] On Hold: 02/22/25 15:57 Last Admin: 02/22/25 08:49 Dose: 5 mg Documented By: BRYAN Atorvastatin Calcium (Atorvastatin Calcium 80 Mg Tablet) 80 mg PO BEDTIME [facility] Last Admin: 02/22/25 20:11 Dose: 80 mg Documented By: JAVED Calcium Carbonate (Calcium Carbonate 750 Mg Tab.Chew) 750 mg PO Q4H PRN PRN Reason: Heartburn Colchicine (Colchicine 0.6 Mg Tablet) 0.6 mg PO DAILY [facility] Last Admin: 02/23/25 08:04 Dose: 0.6 mg Documented By: BRYAN Furosemide (Furosemide 20 Mg/2 Ml Vial) 20 mg IVPUSH BID@0900,1800 [facility]; Protocol On Hold: 02/22/25 15:57 Last Admin: 02/22/25 08:51 Dose: 20 mg Documented By: BRYAN Lamotrigine (Lamotrigine 100 Mg Tablet) 300 mg PO DAILY [facility] Last Admin: 02/23/25 08:04 Dose: 300 mg Documented By: BRYAN Lamotrigine (Lamotrigine 100 Mg Tablet) 200 mg PO BEDTIME [facility] Last Admin: 02/22/25 20:11 Dose: 200 mg Documented By: JAVED Magnesium Hydroxide (Milk Of Magnesia 30 Ml Oral.Susp) 30 ml PO DAILY PRN PRN Reason: Constipation Melatonin (Melatonin 3 Mg Tablet) 6 mg PO BEDTIME PRN PRN Reason: Insomnia Naloxone HCl (Naloxone Hcl 0.4 Mg/Ml Vial) 0.04 mg IVPUSH Q5M PRN PRN Reason: Excessive sedation or RR < 8 Omeprazole (Omeprazole 40 Mg Capsule.Dr) 40 mg PO DAILY@0630 [facility] Last Admin: 02/23/25 06:21 Dose: 40 mg Documented By: JAVED Ondansetron HCl (Ondansetron Hcl 4 Mg/2 Ml Vial) 4 mg IVPUSH Q8H PRN PRN Reason: Nausea and Vomiting Ropinirole HCl (Ropinirole Hcl 2 Mg Tablet) 2 mg PO BEDTIME [facility] Last Admin: 02/22/25 20:11 Dose: 2 mg Documented By: JAVED Sodium Chloride (0.9 % Sodium Chloride Flush 3 Ml Syringe) 3 ml IVFLUSH QSHIFT [facility] Last Admin: 02/23/25 08:06 Dose: 3 ml Documented By: BRYAN Labs 02/23/25 06:34 02/23/25 06:34 Labs: Laboratory Results - last 24 hr 02/23/25 06:34 MCV 88.0 MCH 28.5 MCHC 32.4 RDW 14.2 Plt Count 308 MPV 11.1 Immature Gran % (Auto) 0.4 Neut % (Auto) 66.0 Lymph % (Auto) 17.6 L [place] % (Auto) 15.7 H Eos % (Auto) 0.3 Baso % (Auto) 0.0 Lymph # (Auto) 1.3 [place] # (Auto) 1.2 Eos # (Auto) 0.0 Baso # (Auto) 0.0 Abs Immat Gran (auto) 0.03 Absolute Neuts (auto) 4.9 Absolute Nucleated RBC 0.000 Nucleated RBC % (auto) 0.0 Anion Gap 13 Estim Creat Clear Calc 93.1 Estimated GFR > 60 Random Glucose 112 Calcium 8.6 Total Bilirubin 1.0 AST 121 H ALT 107 H Alkaline Phosphatase 209 H NT-Pro-B Natriuret Pep 1449.8 H Total Protein 6.5 Albumin 3.4 L Microbiology Microbiology Results: Microbiology 02/20/25 11:32 Blood Culture - Preliminary Blood - Venous No growth after 48 hours. 02/20/25 11:23 Blood Culture - Preliminary Blood - Venous No growth after 48 hours. Assessment and Plan (1) Atrial flutter with rapid ventricular response: Status: Acute (2) Pericardial effusion: Status: Acute Plan Patient is a 69-year-old male with PMH notable for demyelinating polyneuropathy, pericarditis, pericardial effusion, stroke, atrial flutter. He was noted to have atrial flutter with rapid ventricular rate and was sent to the ED for further workup/possible cardioversion in the a.m. as this can not be handled outpatient. He reports his only symptom was feeling a little more frail and otherwise had no sick contacts no further concerns. He was also being worked up for autoimmune diseases. Patient is being admitted for possible cardioversion in the a.m.. Other than EKG revealing atrial flutter with RVR, mildly elevated pro BNP workup unrevealing. Cardiology consulted Symptomatic atrial flutter with RVR-unknown duration Patient anticoagulated, not previously on any rate control medication due to orthostatic hypotension Cardiology consulted, planned BARRY guided cardioversion on 02/22 aborted due to large pericardial effusion Hold on rate control meds as ED trialed a low dose of 2.5 mg IV metoprolol with significant drop in blood pressure to the low 70s with quick improvement on fluid resuscitation Monitor on telemetry Troponins WNL Plan for possible cardioversion on Thursday, 02/24 Hold Eliquis due to pericardiocentesis Pericardial effusion [id number] effusion noted on limited echos on 02/03 and 02/06 Pre-op limited echo showed effusion now large, cardioversion aborted Plan on pericardiocentesis by IR later today Check pericardial fluid studies, cytology Continue colchicine, stop Motrin Trend CRP Acute CHF exacerbation CXR showing bilateral small pleural effusions and mild interstitial edema BNP 448.7-->3516.5-->1991.2 Hold Lasix 20mg IV bid for now Follow lytes, I/O, SCr, daily weight Abd distention/discomfort Pt reports ongoing x2 weeks Unclear etiology: CT of abd/pelvis negative for acute abd, U/S negative for ascites Monitor, treat as above with diuretics Restless leg syndrome Continue ropinirole Continue home Lamictal for possible seizure Pt continues to need hospitalization for persistent symptomatic atrial flutter and large pericardial effusion that will require pericardialcentesis later today and possibles cardioversion the following day. Quality Stroke Does the patient have a stroke diagnosis?: No VTE Prior VTE?: No VTE Risk Level:: Medical - moderate - high VTE Device Contraindication: N/A - Device Ordered VTE Drug Contraindication: N/A - Med Ordered
--- NOTE | 2025-02-23 17:45 | ECG_ITS ---
Test Reason : Monitor for AFlutter Blood Pressure : */* mmHG Vent. Rate : 112 BPM Atrial Rate : 224 BPM P-R Int : * ms QRS Dur : 100 ms QT Int : 328 ms P-R-T Axes : * 49 238 degrees QTcB Int : 447 ms Atrial flutter with 2:1 A-V conduction ST & T wave abnormality, consider lateral ischemia Abnormal ECG When compared with ECG of 20-Feb-2025 10:56, No significant change was found Referred By: Jenifer Valladares Electronically Signed By: ARMANDO ANDREA MD
[2025-02-23 18:12] LABS: BF Shift QC OK YES; Man Diluent Bkgrd OK YES; WBC Pericardial Fluid 3600 MM*3
[2025-02-23 18:18] LABS: Lymphs Pericardial Fl 26 %; Monocytes Pericard Fl 18 %; Neutrophils Pericardial Fluid 19 %; Other Pericard Fl 37 %
[2025-02-23] MEDS: Metoprolol Tartrate 12.5 MG HALFTAB PO (20:21)
[2025-02-24] VITALS (9 sets, daily range): BP systolic 93–114; BP diastolic 58–79; PULSE 107–113; RESP 16–20; TEMP 36.5–36.9; O2SAT 96–98; BMI 24.8
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
[2025-02-24] MEDS: Metoprolol Tartrate 12.5 MG HALFTAB PO ×2 (01:35→20:33)
[2025-02-24] MEDS: 0.9 % Sodium Chloride Flush 3 ML SYRINGE IVFLUSH ×4 (01:38→23:10)
[2025-02-24 07:05] LABS: MANUAL DIFF FLAG NO
[2025-02-24 07:13] LABS: Hematocrit 30.9 % (42.0-52.0); Hemoglobin 10.1 g/dl (14.0-18.0); Imm Gran Abs Auto 0.01 X10*3/uL (0.00-0.03); Imm Gran Pct Auto 0.2 % (0.0-0.4); Lymphocytes Absolute Auto 1.0 X10*3/uL (1.2-4.9); Mean Corpuscular HGB Conc 32.7 g/dl (31.0-36.0); Mean Corpuscular Hemoglobin 28.6 pg (27.0-33.0); Mean Corpuscular Volume 87.5 fL (80.0-98.0); NRBC Abs Auto 0.000 X10*3/uL (0.0-0.012); NRBC Pct Auto 0.0 /100WBC (0.0-0.2); Platelet Count 314 X10*3/uL (160-400); Red Blood Count 3.53 X10*6/uL (4.60-5.80); White Blood Count 4.7 X10*3/uL (4.8-10.8)
[2025-02-24 07:22] LABS: Albumin Pericardial Fluid 2.5; Total Protein Pericardial Flui 4.6; pH Pericardial Fluid 7.39
[2025-02-24 07:33] LABS: Alanine Aminotransferase 124 U/L (0-40); Albumin Level 3.2 g/dL (3.5-5.0); Alkaline Phosphatase 188 U/L (39-117); Anion Gap 13 (12-20); Aspartate Amino Transferase 135 U/L (5-37); Blood Urea Nitrogen 22 mg/dL (9-16); Calcium 8.3 mg/dL (8.4-10.2); Carbon Dioxide 25 mmol/L (22-29); Chloride 105 mmol/L (96-108); Creatinine Clr Calc Pharmacy 81.1; Estimated Glomerular Filt Rate > 60; Potassium 4.3 mmol/L (3.3-5.1); Sodium 139 mmol/L (135-145); Total Protein 6.2 g/dL (6.5-8.0)
[2025-02-24] MEDS: Lactated Ringers 500 ML 250 ML IV (09:18)
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
[2025-02-24 10:49] LABS: Ammonia 28 umol/L (13-55)
--- NOTE | 2025-02-24 11:23 | PM.NEUROCN ---
History of Present Illness Data of Consult Service Date: 02/24/25 Primary Care Provider: MD EVELYN Chao Reason for consult: Possible stroke 69 years old man who apparently has a complicated underlying neurological syndrome impacting his peripheral and central nervous systems. 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 He was anticoagulated for stroke prevention with diagnosis of atrial flutter. Anticoagulation apparently was stopped few days ago for a procedure. All today he was noted to be complaining of not able to see and this consultation was requested. Status stroke protocol was initiated. I saw him few minutes after. There was no witnessing of any convulsion or seizure-like activity. Review of Systems Review of Systems: No chest pain or palpitation at this time. No headache. No physical discomfort. No seizure-like activity. [facility] Past Medical History Medical History Recent cerebrovascular accident Chronic pericardial effusion Acute pericardial effusion Numbness and tingling Pericarditis Peripheral demyelinating neuropathy JACOB positive Orthostatic hypertension Restless legs syndrome CVA (cerebral vascular accident) Cognitive disorder Back pain Anxiety Depression Hyperlipidemia Non-melanoma skin cancer Family History Family History Father Myocardial infarction Family/Other Cancer Family/Other Breast cancer Mother Skin cancer Surgical History Surgical History H/O cervical spine surgery History of ear surgery Social History Social History Household Members: Spouse Housing: House Are you a primary home care aide to a significant other at home: No Do you presently have visiting nurse or other home services: No Alcohol intake: current Alcohol intake frequency: holidays/special occasions only Alcohol type: beer and hard liquor Comment: Pt declining bed alarm at this time. Gait and balance are steady Patient Tobacco Use Status: Never used Tobacco e-Cigarette/Vaping Use: Never Used Currently Displaying Signs/Symptoms of Drug Intoxication Withdrawal: No Have you been hit, kicked, punched, or otherwise hurt by someone within the past year? 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 Allergies Allergy/AdvReac Type Severity Reaction Status Date / Time No Known Allergies Allergy Verified 02/20/25 11:09 Active Medications: Current Medications Acetaminophen (Acetaminophen 325 Mg Tablet) 650 mg PO Q6H PRN PRN Reason: Pain, Mild 1-3,fever,headache Apixaban (Apixaban 5 Mg Tablet) 5 mg PO BID JERRY On Hold: 02/22/25 15:57 Last Admin: 02/22/25 08:49 Dose: 5 mg Atorvastatin Calcium (Atorvastatin Calcium 80 Mg Tablet) 80 mg PO BEDTIME JERRY Last Admin: 02/23/25 20:21 Dose: 80 mg Calcium Carbonate (Calcium Carbonate 750 Mg Tab.Chew) 750 mg PO Q4H PRN PRN Reason: Heartburn Colchicine (Colchicine 0.6 Mg Tablet) 0.6 mg PO DAILY [facility] Last Admin: 02/24/25 07:59 Dose: 0.6 mg Digoxin (Digoxin 0.5 Mg/2 Ml Ampul) 0.25 mg IVPUSH Q6H JERRY; Protocol Stop: 02/24/25 22:31 Last Admin: 02/24/25 10:45 Dose: 0.25 mg Furosemide (Furosemide 20 Mg/2 Ml Vial) 20 mg IVPUSH BID@0900,1800 JERRY; Protocol On Hold: 02/22/25 15:57 Last Admin: 02/22/25 08:51 Dose: 20 mg Lamotrigine (Lamotrigine 100 Mg Tablet) 300 mg PO DAILY JERRY Last Admin: 02/24/25 07:58 Dose: 300 mg Lamotrigine (Lamotrigine 100 Mg Tablet) 200 mg PO BEDTIME JERRY Last Admin: 02/23/25 20:22 Dose: 200 mg Magnesium Hydroxide (Milk Of Magnesia 30 Ml Oral.Susp) 30 ml PO DAILY PRN PRN Reason: Constipation Melatonin (Melatonin 3 Mg Tablet) 6 mg PO BEDTIME PRN PRN Reason: Insomnia Metoprolol Tartrate (Metoprolol Tartrate 12.5 Mg Halftab) 12.5 mg PO Q6H JERRY; Protocol Last Admin: 02/24/25 07:59 Dose: Not Given Naloxone HCl (Naloxone Hcl 0.4 Mg/Ml Vial) 0.04 mg IVPUSH Q5M PRN PRN Reason: Excessive sedation or RR < 8 Omeprazole (Omeprazole 40 Mg Capsule.Dr) 40 mg PO DAILY@0630 [facility] Last Admin: 02/24/25 05:34 Dose: Not Given Ondansetron HCl (Ondansetron Hcl 4 Mg/2 Ml Vial) 4 mg IVPUSH Q8H PRN PRN Reason: Nausea and Vomiting Last Admin: 02/24/25 08:55 Dose: 4 mg Ropinirole HCl (Ropinirole Hcl 2 Mg Tablet) 2 mg PO BEDTIME [facility] Last Admin: 02/23/25 20:21 Dose: 2 mg Sodium Chloride (0.9 % Sodium Chloride Flush 3 Ml Syringe) 3 ml IVFLUSH QSHIFT [facility] Last Admin: 02/24/25 07:59 Dose: 3 ml Home Medications ?Medication ?Instructions ?Recorded ?Confirmed ?Last Taken ?Type colchicine 0.6 mg tablet 0.6 mg PO DAILY 01/17/25 02/20/25 02/20/25 History ropinirole 2 mg tablet 2 mg PO BEDTIME 02/03/25 02/20/25 02/19/25 History lamotrigine 100 mg tablet 100 mg PO DAILY 02/20/25 02/20/25 02/20/25 History lamotrigine 200 mg tablet 200 mg PO BID 02/20/25 02/20/25 02/20/25 History (Lamictal) Physical Exam Vital Signs: Vital Signs: Last Vital Signs Temp 98.4 F 02/24/25 07:00 Pulse 110 H 02/24/25 07:00 Resp 18 02/24/25 07:00 BP 108/73 02/24/25 08:58 Pulse Ox 97 02/24/25 07:00 O2 Del Method Room Air 02/24/25 07:00 O2 Flow Rate 2 02/23/25 15:45 BMI result Body Mass Index 24.8 Neuro: Other: Mental Status: He is alert and awake with normal spontaneity and fluency of speech, comprehension and naming. He was very anxious and nervous. Cranial Nerves: CN II: Visual tripp full to confrontation, visual acuity intact. CN III, IV, : Pupils equal, round, reactive to light and accommodation. Extraocular movements are normal. CN V: Facial sensation is normal. CN VII: Facial movements symmetrical. CN VIII: Hearing intact to bedside conversation is normal. CN IX, X: Palate elevates symmetrically. CN XI: Shoulder shrug and head turn symmetrical. CN XII: Tongue midline without atrophy or fasciculations. Motor: Deep tendon reflexes were absent. [id number] testing revealed mild ataxia bilaterally. Plantars were flexor. Extrapyramidal: Full facial expressions and blinking. No rigidity. Movements are appropriate with no tremor or abnormality. Speech: Soft. Results Labs 02/24/25 06:16 02/24/25 06:16 Labs: Short CBC 02/24/25 Range/Units 06:16 WBC 4.7 L (4.8-10.8) X10*3/uL Hgb 10.1 L (14.0-18.0) g/dl Hct 30.9 L (42.0-52.0) % Plt Count 314 (160-400) X10*3/uL BMP 02/24/25 06:16 Sodium 139 Potassium 4.3 Chloride 105 Carbon Dioxide 25 BUN 22 H Creatinine 0.93 Calcium 8.3 L Liver Function 02/24/25 Range/Units 06:16 Total Bilirubin 0.9 (0.0-1.0) mg/dL AST 135 H (5-37) U/L ALT 124 H (0-40) U/L Alkaline Phosphatase 188 H (39-117) U/L Albumin 3.2 L (3.5-5.0) g/dL His MRI in January revealed a tiny area of restricted diffusion in left frontal cortical area suggestive of a small embolic infarct. Otherwise, rest of the MRI did not reveal significant pathology. CTA did not reveal any large vessel disease. Microbiology Microbiology Results: Microbiology 02/23/25 15:45 Pericardial Fluid Gram Stain - Final 02/23/25 15:45 Pericardial Fluid Anaerobic Culture - Preliminary No growth to date. 02/23/25 15:45 Pericardial Fluid Body Fluid Culture - Preliminary No growth to date. 02/20/25 11:32 Blood - Venous Blood Culture - Preliminary No growth after 48 hours. 02/20/25 11:23 Blood - Venous Blood Culture - Preliminary No growth after 48 hours. Assessment and Plan (1) Change in mental status: Qualifiers: Altered mental status type: unspecified Qualified Code(s): R41.82 - Altered mental status, unspecified Status: Acute 69 years old man with complex underlying neurological condition with diagnosis of severe demyelinating peripheral neuropathy and a parkinsonian/dysautonomia syndrome suggestive of multisystem atrophy. He also suffered from atrial fibrillation/flutter and was anticoagulated, which was stopped for a procedure. He had sudden change in mental status today with complain of difficulty with vision. On my examination there was no overt visual field defect or blindness. He was very anxious and nervous with mild tremulous and chronic features of peripheral neuropathy. Because of his cardiac condition, embolic cerebral ischemia was always risk but because of no definitive deficit, I do not recommend treating him with TNK. I recommend a noncontrast MRI of brain to see if there is any such evidence. If not, an EEG is also recommended to rule out seizure disorder. Procedures Date of Service Date of Service: 02/24/25
--- NOTE | 2025-02-24 12:00 | CA_ITS ---
Transthoracic Echocardiogram Patient (Last, First, Middle): Chilo Lee, Gender: Male Date of : 1955 Age: 69 Procedure Date: 02/24/2025 Procedure Type: Transthoracic Echocardiogram [place] [facility] [place]: 182.88 cm Weight: 81.65 kg BSA: 2.04 m2 Heart Rate: bpm BP: 118 / 60 mmHg Information Support Project Manager: Referring MD: Jenifer CASTRO Honing Machine Operator Tool: Don Putnam MD Symptoms: Post pericardiocentesis Study Quality: Technically Difficult ECG Rhythm: Atrial Fibrillation Conclusions: - 1. Small pericardial effusion 2. Low normal LV ejection fraction of 50-55% Findings Left Ventricle The left ventricular systolic function is low normal. The visually estimated ejection fraction is between 50-55%. Venous The inferior vena cava is severely dilated. Pericardium/Pleural There is a small circumferential pericardial effusion. Prior Study Comparison Significant changes compared to prior study dated: 02/22/2025. pericardial effusion has significantly improved Measurements 2D Linear Measurements IVSd: 1.12 0.6-0.9/0.6-1.0 cm LVIDd: 3.75 3.9-5.3/4.2-5.9 cm LVIDd Index: 1.84 2.4-3.2/2.2-3.1 cm/m2 LVIDs: 2.81 2.0-3.6 cm LVPWd: 1.08 0.7-1.1 cm LV Mass: 164.23 67-162/88-224 g LV Mass Index: 80.50 43-95/49-115 g/m2 2D Systolic Function EF 4C: 50.70 >55% EF 2C: 53.80 >55% EF BiP: 52.70 >55% Updated in Other Vendor System with Status of Final Don Putnam MD electronically signed on 02/24/2025 1:22:57 PM with status of Final
--- NOTE | 2025-02-24 15:32 | HO.RADPN ---
RADIOLOGY Narrative Narrative: Patient status post pericardial drainage catheter placement with IR on 02/23 for pericardial effusion. 200 cc of fluid was aspirated at time of procedure and catheter was maintained to eduardo bulb. Catheter output as diminished and is now minimal. Per cardiology Dr. Putnam, echo shows minimal residual fluid and catheter may be removed. The catheter was removed at bedside without incident and a dressing was applied IR signing off. Please re-consult IR as needed.
--- NOTE | 2025-02-24 15:51 | MHC.CM.PN ---
EMR REVIEWED AND PER MD ROUNDS, PATIENT IS NOT MEDICALLY CLEARED FOR DISCHARGE DUE TO MANAGEMENT OF NEUROLOGICAL CONCERNS, MRI OBTAINED, AND NEUROLOGY CONSULTED.
--- NOTE | 2025-02-24 17:43 | HO.PM.IMPN ---
Subjective Subjective Date of Service: 02/24/25 Interval History: Pt had pericardiocentesis last night with 200 cc pericardial fluid were aspirated at time of procedure PHILIPPE drain placed, additional 100 cc emptying yesterday and overnight; no significant output during the day Pt seen and evaluated this morning where has a change in mental status Reports change in vision is if he has seeing vertical ?flames? Pt also reports upper extremity tremors Denies chest pain or pressure No hemiparesis Has hx of panic attacks, reports does not feel like one Review of Systems Review of Systems: Yes all other systems are reviewed and are negative Physical Exam Exam: Exam: General: AOx3, anxious, mildly confused Resp: CTA bilaterally CVS: S1, S2, tachycardic GI: +BS, NT, no distention Skin: Warm, dry Neuro: Mild upper extremity intentional tremors noted. Visual tripp full. No focal deficits noted. Negative pronator drift. Face full and symmetric. Strength symmetric and preserved of upper and lower extremities. Sensation to light touch intact bilaterally. Extremities: No edema Psych: Anxious Vital Signs: Vital Signs: Last Vital Signs Temp 97.7 F 02/24/25 15:37 Pulse 112 H 02/24/25 15:35 Resp 20 02/24/25 15:37 BP 98/72 02/24/25 15:35 Pulse Ox 98 02/24/25 15:37 O2 Del Method Room Air 02/24/25 15:37 O2 Flow Rate 2 02/23/25 15:45 BMI result Body Mass Index 24.8 Objective Data Active Medications Acetaminophen (Acetaminophen 325 Mg Tablet) 650 mg PO Q6H PRN PRN Reason: Pain, Mild 1-3,fever,headache Apixaban (Apixaban 5 Mg Tablet) 5 mg PO BID JERRY On Hold: 02/22/25 15:57 Last Admin: 02/22/25 08:49 Dose: 5 mg Documented By: BRYAN Atorvastatin Calcium (Atorvastatin Calcium 80 Mg Tablet) 80 mg PO BEDTIME [facility] Last Admin: 02/23/25 20:21 Dose: 80 mg Documented By: RUI Calcium Carbonate (Calcium Carbonate 750 Mg Tab.Chew) 750 mg PO Q4H PRN PRN Reason: Heartburn Colchicine (Colchicine 0.6 Mg Tablet) 0.6 mg PO DAILY [facility] Last Admin: 02/24/25 07:59 Dose: 0.6 mg Documented By: ADRI Digoxin (Digoxin 0.5 Mg/2 Ml Ampul) 0.25 mg IVPUSH Q6H [facility]; Protocol Stop: 02/24/25 22:31 Last Admin: 02/24/25 16:05 Dose: 0.25 mg Documented By: ADRI Furosemide (Furosemide 20 Mg/2 Ml Vial) 20 mg IVPUSH BID@0900,1800 [facility]; Protocol On Hold: 02/22/25 15:57 Last Admin: 02/22/25 08:51 Dose: 20 mg Documented By: BRYAN Lamotrigine (Lamotrigine 100 Mg Tablet) 300 mg PO DAILY [facility] Last Admin: 02/24/25 07:58 Dose: 300 mg Documented By: ADRI Lamotrigine (Lamotrigine 100 Mg Tablet) 200 mg PO BEDTIME [facility] Last Admin: 02/23/25 20:22 Dose: 200 mg Documented By: RUI Magnesium Hydroxide (Milk Of Magnesia 30 Ml Oral.Susp) 30 ml PO DAILY PRN PRN Reason: Constipation Melatonin (Melatonin 3 Mg Tablet) 6 mg PO BEDTIME PRN PRN Reason: Insomnia Metoprolol Tartrate (Metoprolol Tartrate 12.5 Mg Halftab) 12.5 mg PO Q6H [facility]; Protocol Last Admin: 02/24/25 15:36 Dose: Not Given Documented By: ADRI Non-Admin Reason: Physician Held Med Naloxone HCl (Naloxone Hcl 0.4 Mg/Ml Vial) 0.04 mg IVPUSH Q5M PRN PRN Reason: Excessive sedation or RR < 8 Omeprazole (Omeprazole 40 Mg Capsule.Dr) 40 mg PO DAILY@0630 [facility] Last Admin: 02/24/25 05:34 Dose: Not Given Documented By: RUI Non-Admin Reason: npo Ondansetron HCl (Ondansetron Hcl 4 Mg/2 Ml Vial) 4 mg IVPUSH Q8H PRN PRN Reason: Nausea and Vomiting Last Admin: 02/24/25 08:55 Dose: 4 mg Documented By: ADRI Ropinirole HCl (Ropinirole Hcl 2 Mg Tablet) 2 mg PO BEDTIME [facility] Last Admin: 02/23/25 20:21 Dose: 2 mg Documented By: HO.[email or web address] Sodium Chloride (0.9 % Sodium Chloride Flush 3 Ml Syringe) 3 ml IVFLUSH QSHIFT [facility] Last Admin: 02/24/25 16:06 Dose: 3 ml Documented By: ADRI Labs 02/24/25 06:16 02/24/25 06:16 Labs: Laboratory Results - last 24 hr 02/23/25 02/24/25 02/24/25 15:45 06:16 10:26 MCV 87.5 MCH 28.6 MCHC 32.7 RDW 14.5 Plt Count 314 MPV 11.2 Immature Gran % (Auto) 0.2 Neut % (Auto) 61.0 Lymph % (Auto) 20.5 [place] % (Auto) 17.7 H Eos % (Auto) 0.4 Baso % (Auto) 0.2 Lymph # (Auto) 1.0 L [place] # (Auto) 0.8 Eos # (Auto) 0.0 Baso # (Auto) 0.0 Abs Immat Gran (auto) 0.01 Absolute Neuts (auto) 2.9 Absolute Nucleated RBC 0.000 Nucleated RBC % (auto) 0.0 Anion Gap 13 Estim Creat Clear Calc 81.1 Estimated GFR > 60 Random Glucose 111 Calcium 8.3 L Total Bilirubin 0.9 AST 135 H ALT 124 H Alkaline Phosphatase 188 H Ammonia 28 Total Protein 6.2 L Albumin 3.2 L [place] pH 7.39 [place] WBC 3600 [place] RBC 173302 [place] Neutrophils 19 [place] Lymphocytes 26 [place] Monocytes 18 [place] Other Cells 37 [place] Total Protein 4.6 Pericardial Albumin 2.5 Microbiology Microbiology Results: Microbiology 02/23/25 15:45 Gram Stain - Final Pericardial Fluid Anaerobic Culture - Preliminary No growth to date. Body Fluid Culture - Preliminary No growth to date. Assessment and Plan (1) Atrial flutter with rapid ventricular response: Status: Acute (2) Pericardial effusion: Status: Acute Plan Patient is a 69-year-old male with PMH notable for demyelinating polyneuropathy, pericarditis, pericardial effusion, stroke, atrial flutter. He was noted to have atrial flutter with rapid ventricular rate and was sent to the ED for further workup/possible cardioversion in the a.m. as this can not be handled outpatient. He reports his only symptom was feeling a little more frail and otherwise had no sick contacts no further concerns. He was also being worked up for autoimmune diseases. Patient is being admitted for possible cardioversion in the a.m.. Other than EKG revealing atrial flutter with RVR, mildly elevated pro BNP workup unrevealing. Cardiology consulted Symptomatic atrial flutter with RVR-unknown duration Patient anticoagulated, not previously on any rate control medication due to orthostatic hypotension and autonomic dysfunction; Troponins WNL Cardiology consulted, planned BARRY guided cardioversion on 02/22 aborted due to large pericardial effusion Cardioversion on hold due to hemorrhagic pericardial fluid Metoprolol 12.5 mg q.6 hours, digoxin 25 mg IV q.6 x3 Continue to hold Eliquis due to pericardiocentesis Monitor on telemetry Pericardial effusion [id number] effusion noted on limited echos on 02/03 and 02/06 Pre-op limited echo showed effusion now large, cardioversion aborted IR CT-guided pericardiocentesis on 02/23 with 200 cc drained at time of procedure PHILIPPE drain in place with additional 100 cc of bloody output last evening and overnight; no significant drainage today Check pericardial fluid studies, cytology Repeat limited echo today showed small pericardial effusion with low LVEF of 50-55% Continue colchicine, stop Motrin Altered mentation Pt appeared mildly confused and complained of lightheadedness, vision changes, and tremors Concerning for possible CVA vs seizure vs panic attack We will get MRI of head and EEG Pt is not a candidate for TNK Neurology consult Acute CHF exacerbation CXR showing bilateral small pleural effusions and mild interstitial edema BNP 448.7-->3516.5-->1991.2 Hold Lasix 20mg IV bid for now due to soft BP Follow lytes, I/O, SCr, daily weight Abd distention/discomfort Pt reports ongoing x2 weeks Unclear etiology: CT of abd/pelvis negative for acute abd, U/S negative for ascites Monitor, treat as above with diuretics Restless leg syndrome Continue ropinirole Continue home Lamictal for possible seizure Pt continues to need hospitalization for persistent symptomatic atrial flutter and pericardial effusion that requires pericardialcentesis. Pt needs continued cardiac and neurological monitoring. Quality Stroke Does the patient have a stroke diagnosis?: No VTE Prior VTE?: No VTE Risk Level:: Medical - moderate - high VTE Device Contraindication: N/A - Device Ordered VTE Drug Contraindication: N/A - Med Ordered
[2025-02-25] VITALS (7 sets, daily range): BP systolic 89–117; BP diastolic 54–78; PULSE 108–116; RESP 16–19; TEMP 36.4–36.7; O2SAT 94–99; BMI 24.2
[2025-02-25 08:11] LABS: MANUAL DIFF FLAG NO
[2025-02-25 08:18] LABS: Hematocrit 34.3 % (42.0-52.0); Hemoglobin 10.7 g/dl (14.0-18.0); Imm Gran Abs Auto 0.01 X10*3/uL (0.00-0.03); Imm Gran Pct Auto 0.2 % (0.0-0.4); Lymphocytes Absolute Auto 1.2 X10*3/uL (1.2-4.9); Mean Corpuscular HGB Conc 31.2 g/dl (31.0-36.0); Mean Corpuscular Hemoglobin 27.6 pg (27.0-33.0); Mean Corpuscular Volume 88.4 fL (80.0-98.0); NRBC Abs Auto 0.000 X10*3/uL (0.0-0.012); NRBC Pct Auto 0.0 /100WBC (0.0-0.2); Platelet Count 342 X10*3/uL (160-400); Red Blood Count 3.88 X10*6/uL (4.60-5.80); White Blood Count 4.5 X10*3/uL (4.8-10.8)
[2025-02-25 08:40] LABS: Alanine Aminotransferase 114 U/L (0-40); Albumin Level 3.2 g/dL (3.5-5.0); Alkaline Phosphatase 192 U/L (39-117); Anion Gap 10 (12-20); Aspartate Amino Transferase 98 U/L (5-37); Blood Urea Nitrogen 15 mg/dL (9-16); Calcium 8.3 mg/dL (8.4-10.2); Carbon Dioxide 27 mmol/L (22-29); Chloride 107 mmol/L (96-108); Creatinine Clr Calc Pharmacy 83.8; Estimated Glomerular Filt Rate > 60; Potassium 4.4 mmol/L (3.3-5.1); Sodium 140 mmol/L (135-145); Total Protein 6.2 g/dL (6.5-8.0)
[2025-02-25] MEDS: 0.9 % Sodium Chloride Flush 3 ML SYRINGE IVFLUSH ×2 (08:42→19:49)
--- NOTE | 2025-02-25 10:57 | PM.PNCARD ---
Subjective Subjective Date of Service: 02/25/25 Principal diagnosis: CHF, persistent atrial flutter, pericardial effusion Interval history: Patient feels better. Denies any neurologic symptoms. Denies any lightheadedness. He has neurologic symptoms has been transient. His neurologic workup yesterday was without issues. His echocardiogram yesterday showed small pericardial effusion in his drain was discontinued. He has not worsening. Remains in atrial flutter with difficult control rate. Has got digoxin load yesterday. Review of Systems Constitutional: Reports weakness Eyes: Reports no additional eye complaints Cardiovascular: Denies chest pain, Reports rapid heart rate, Denies lightheadedness, Denies Loss of Consciousness and Denies dyspnea Respiratory: Reports no additional respiratory complaints and Denies dyspnea Gastrointestinal: Reports no additional gastrointestinal complaints Skin/Breast: Reports system reviewed and no additional complaints, except as docu Reports system reviewed and no additional complaints, except as documented, Reports confusion and Reports weakness Psychiatric: Reports confusion Physical Exam Vital Signs: Last Vital Signs Temp 97.7 F 02/25/25 08:00 Pulse 112 H 02/25/25 08:00 Resp 18 02/25/25 08:00 BP 93/54 L 02/25/25 08:00 Pulse Ox 97 02/25/25 08:00 O2 Del Method Room Air 02/25/25 08:00 O2 Flow Rate 2 02/23/25 15:45 BMI result Body Mass Index 24.2 Const General: cooperative, comfortable and confusion Nutritional Appearance: average body habitus Orientation/consciousness: confusion Neck Neck: Yes trachea midline, Yes supple and Yes no JVD Resp Auscultation: clear to auscultation bilaterally Cardio Rate: tachycardic Heart sounds: S1 normal heart sound present, S2 normal heart sound present, no click, no gallops and no murmurs GI Auscultation: normal bowel sounds Neuro General: moves all extremities, confusion and other (Imbalance) Objective Labs and Meds 02/25/25 07:33 02/25/25 07:33 Lab results: Laboratory Results - last 24 hr 02/25/25 07:33 WBC 4.5 L RBC 3.88 L Hgb 10.7 L Hct 34.3 L MCV 88.4 MCH 27.6 MCHC 31.2 RDW 14.2 Plt Count 342 MPV 10.8 Immature Gran % (Auto) 0.2 Neut % (Auto) 55.0 Lymph % (Auto) 26.2 [place] % (Auto) 16.0 H Eos % (Auto) 2.4 Baso % (Auto) 0.2 Lymph # (Auto) 1.2 [place] # (Auto) 0.7 Eos # (Auto) 0.1 Baso # (Auto) 0.0 Abs Immat Gran (auto) 0.01 Absolute Neuts (auto) 2.5 Absolute Nucleated RBC 0.000 Nucleated RBC % (auto) 0.0 Sodium 140 Potassium 4.4 Chloride 107 Carbon Dioxide 27 Anion Gap 10 L BUN 15 Creatinine 0.90 Estim Creat Clear Calc 83.8 Estimated GFR > 60 Random Glucose 96 Calcium 8.3 L Total Bilirubin 0.6 AST 98 H ALT 114 H Alkaline Phosphatase 192 H Total Protein 6.2 L Albumin 3.2 L Imaging Radiologist's impression: Impressions Brain MRI 02/24/25 12:00 IMPRESSION: No acute intracranial abnormality. No evidence of an acute infarct. Electronically signed by: Jose Noel MD 02/24/2025 12:34 PM EDT Progress Note: A&P Assessment and plan (1) Atrial flutter with rapid ventricular response: Status: Acute Assessment and Plan: Atrial flutter with rapid ventricular response which was difficult control. Despite digoxin load yesterday. His blood pressure in the lower side so can not give him much metoprolol. I think he would most benefit from BARRY guided cardioversion which currently can not be performed due to his pericardial effusion which was suspected to be hemorrhagic. At this point time would hold off on Eliquis therapy. Risk of stroke was discussed with him. Started on p.o. digoxin 0.25 mg daily. Oral hydration should be pushed. (2) Pericardial effusion: Status: Acute Assessment and Plan: Pericardial effusion status post drain which has been removed after echocardiogram yesterday. Repeat limited echocardiogram Thursday morning. If that has no significant further worsening of pericardial effusion and he can be restarted on Eliquis therapy will pursue BARRY guided cardioversion on Thursday. Continue colchicine therapy for pericarditis. Hold off on Lasix as well as Eliquis therapy. Will follow with you Time Spent With Patient Time: Total time managing care of this patient today ____ minutes. Progress Note: Quality Stroke Does the patient have a stroke diagnosis?: No Procedures Date of Service Date of Service: 02/25/25
--- NOTE | 2025-02-25 17:04 | HO.PM.IMPN ---
Subjective Subjective Date of Service: 02/25/25 Interval History: Feels better No repeat episodes of altered vision or shaking No chest pain or palpitations Continues to have a flutter and tachycardia EEG negative for seizure disorder Review of Systems Review of Systems: Yes all other systems are reviewed and are negative Physical Exam Exam: Exam: General: AOx3, no acute distress Resp: Lungs CTA CVS: Irregularly irregular rhythm, tachycardic GI: +BS, NT, no distention Skin: Warm, dry Neuro: Cranial nerves II-XII grossly intact bilaterally. Motor grossly intact bilaterally Extremities: No edema Psych: Calm, cooperative Vital Signs: Vital Signs: Last Vital Signs Temp 98.0 F 02/25/25 15:46 Pulse 113 H 02/25/25 15:46 Resp 19 02/25/25 15:46 BP 100/60 02/25/25 15:46 Pulse Ox 98 02/25/25 15:46 O2 Del Method Room Air 02/25/25 15:46 O2 Flow Rate 2 02/23/25 15:45 BMI result Body Mass Index 24.2 Objective Data Active Medications Acetaminophen (Acetaminophen 325 Mg Tablet) 650 mg PO Q6H PRN PRN Reason: Pain, Mild 1-3,fever,headache Apixaban (Apixaban 5 Mg Tablet) 5 mg PO BID [facility] On Hold: 02/22/25 15:57 Last Admin: 02/22/25 08:49 Dose: 5 mg Documented By: BRYAN Atorvastatin Calcium (Atorvastatin Calcium 80 Mg Tablet) 80 mg PO BEDTIME [facility] Last Admin: 02/24/25 20:33 Dose: 80 mg Documented By: JOHN Calcium Carbonate (Calcium Carbonate 750 Mg Tab.Chew) 750 mg PO Q4H PRN PRN Reason: Heartburn Colchicine (Colchicine 0.6 Mg Tablet) 0.6 mg PO DAILY [facility] Last Admin: 02/25/25 08:36 Dose: 0.6 mg Documented By: BRYAN Digoxin (Digoxin 0.25 Mg Tablet) 0.25 mg PO DAILY [facility]; Protocol Last Admin: 02/25/25 12:01 Dose: 0.25 mg Documented By: BRYAN Furosemide (Furosemide 20 Mg/2 Ml Vial) 20 mg IVPUSH BID@0900,1800 [facility]; Protocol On Hold: 02/22/25 15:57 Last Admin: 02/22/25 08:51 Dose: 20 mg Documented By: BRYAN Lamotrigine (Lamotrigine 100 Mg Tablet) 300 mg PO DAILY [facility] Last Admin: 02/25/25 08:36 Dose: 300 mg Documented By: BRYAN Lamotrigine (Lamotrigine 100 Mg Tablet) 200 mg PO BEDTIME [facility] Last Admin: 02/24/25 20:33 Dose: 200 mg Documented By: JOHN Magnesium Hydroxide (Milk Of Magnesia 30 Ml Oral.Susp) 30 ml PO DAILY PRN PRN Reason: Constipation Melatonin (Melatonin 3 Mg Tablet) 6 mg PO BEDTIME PRN PRN Reason: Insomnia Metoprolol Tartrate (Metoprolol Tartrate 12.5 Mg Halftab) 12.5 mg PO Q6H [facility]; Protocol On Hold: 02/25/25 10:37 Last Admin: 02/25/25 08:39 Dose: Not Given Documented By: BRYAN Non-Admin Reason: Decreased Blood Pressure Naloxone HCl (Naloxone Hcl 0.4 Mg/Ml Vial) 0.04 mg IVPUSH Q5M PRN PRN Reason: Excessive sedation or RR < 8 Omeprazole (Omeprazole 40 Mg Capsule.Dr) 40 mg PO DAILY@0630 [facility] Last Admin: 02/25/25 06:32 Dose: 40 mg Documented By: BEATRIZ Ondansetron HCl (Ondansetron Hcl 4 Mg/2 Ml Vial) 4 mg IVPUSH Q8H PRN PRN Reason: Nausea and Vomiting Last Admin: 02/24/25 08:55 Dose: 4 mg Documented By: ADRI Ropinirole HCl (Ropinirole Hcl 2 Mg Tablet) 2 mg PO BEDTIME [facility] Last Admin: 02/24/25 20:33 Dose: 2 mg Documented By: JOHN Sodium Chloride (0.9 % Sodium Chloride Flush 3 Ml Syringe) 3 ml IVFLUSH QSHIFT [facility] Last Admin: 02/25/25 16:23 Dose: Not Given Documented By: BRYAN Non-Admin Reason: Previously Administered Labs 02/25/25 07:33 02/25/25 07:33 Labs: Laboratory Results - last 24 hr 02/25/25 07:33 MCV 88.4 MCH 27.6 MCHC 31.2 RDW 14.2 Plt Count 342 MPV 10.8 Immature Gran % (Auto) 0.2 Neut % (Auto) 55.0 Lymph % (Auto) 26.2 [place]field % (Auto) 16.0 H Eos % (Auto) 2.4 Baso % (Auto) 0.2 Lymph # (Auto) 1.2 [place]field # (Auto) 0.7 Eos # (Auto) 0.1 Baso # (Auto) 0.0 Abs Immat Gran (auto) 0.01 Absolute Neuts (auto) 2.5 Absolute Nucleated RBC 0.000 Nucleated RBC % (auto) 0.0 Anion Gap 10 L Estim Creat Clear Calc 83.8 Estimated GFR > 60 Random Glucose 96 Calcium 8.3 L Total Bilirubin 0.6 AST 98 H ALT 114 H Alkaline Phosphatase 192 H Total Protein 6.2 L Albumin 3.2 L Microbiology Microbiology Results: Microbiology 02/20/25 11:32 Blood Culture - Final Blood - Venous No growth after 5 days. 02/20/25 11:23 Blood Culture - Final Blood - Venous No growth after 5 days. 02/23/25 15:45 Gram Stain - Final Pericardial Fluid Anaerobic Culture - Preliminary No growth to date. Body Fluid Culture - Final No growth after 2 days Assessment and Plan (1) Atrial flutter with rapid ventricular response: Status: Acute (2) Pericardial effusion: Status: Acute Plan Patient is a 69-year-old male with PMH notable for demyelinating polyneuropathy, pericarditis, pericardial effusion, stroke, atrial flutter. He was noted to have atrial flutter with rapid ventricular rate and was sent to the ED for further workup/possible cardioversion in the a.m. as this can not be handled outpatient. He reports his only symptom was feeling a little more frail and otherwise had no sick contacts no further concerns. He was also being worked up for autoimmune diseases. Patient is being admitted for possible cardioversion in the a.m.. Other than EKG revealing atrial flutter with RVR, mildly elevated pro BNP workup unrevealing. Cardiology consulted Symptomatic atrial flutter with RVR-unknown duration Patient anticoagulated, not previously on any rate control medication due to orthostatic hypotension and autonomic dysfunction; Troponins WNL Cardiology consulted, planned BARRY guided cardioversion on 02/22 aborted due to large pericardial effusion Cardioversion on hold due to hemorrhagic pericardial fluid Pt's BP could not tolerate metoprolol 12.5 mg q.6 hours Received digoxin 25 mg IV q.6 x3; now on maintenance of digoxin 25 mg po daily Continue to hold Eliquis due to hemorrhagic pericardiocentesis Plan on attempting cardioversion again on Thursday Monitor on telemetry Pericardial effusion [id number] effusion noted on limited echos on 02/03 and 02/06 Pre-op limited echo showed effusion now large; cardioversion aborted IR CT-guided pericardiocentesis on 02/23 with 200 cc drained at time of procedure PHILIPPE drain in place with additional 100 cc of bloody output during the evening and overnight; no significant drainage during the day Pericardial fluid studies negative; cytology pending Repeat limited echo today showed small pericardial effusion with low LVEF of 50-55% Continue colchicine, stop Motrin Plan is to repeat limited echo on Thursday morning to evaluate for effusion Altered mentation Pt appeared mildly confused and complained of lightheadedness, vision changes, and tremors on morning of 02/24 Concerning for possible CVA vs seizure vs panic attack MRI negative for acute abnormality; EEG showed mild generalized slowing with no evidence of seizure disorder Pt denies hx of panic attacks Likely in the setting of chronic neurological disorders, including previous stroke, severe demyelinating neuropathy not responsive to IVIG, and parkinsonism syndrome Neurology consulted Acute CHF exacerbation CXR showing bilateral small pleural effusions and mild interstitial edema BNP 448.7-->3516.5-->1991.2 Hold Lasix 20mg IV bid for now due to soft BP Follow lytes, I/O, SCr, daily weight Abd distention/discomfort Pt reports ongoing x2 weeks Unclear etiology: CT of abd/pelvis negative for acute abd, U/S negative for ascites Monitor, treat as above with diuretics Restless leg syndrome Continue ropinirole Continue home Lamictal for possible seizure Pt continues to need hospitalization for persistent symptomatic atrial flutter and pericardial effusion that required pericardialcentesis. Pt needs continued cardiac and neurological monitoring. Plan is to attempt cardioversion again on Thursday. Quality Stroke Does the patient have a stroke diagnosis?: No VTE Prior VTE?: No VTE Risk Level:: Medical - moderate - high VTE Device Contraindication: N/A - Device Ordered VTE Drug Contraindication: N/A - Med Ordered
[2025-02-26 02:58] VITALS: BP 98/76; PULSE 117; RESP 16; TEMP 37.1; O2SAT 96
[2025-02-26 06:00] VITALS: BMI 24.8
[2025-02-26 07:58] VITALS: BP 116/70; PULSE 114; RESP 16; TEMP 35.9; O2SAT 97
--- NOTE | 2025-02-26 10:50 | PM.PNCARD ---
Subjective Subjective Date of Service: 02/26/25 Principal diagnosis: CHF, persistent atrial flutter, pericardial effusion Interval history: Remains in atrial flutter with rapid ventricular response. No worsening shortness of breath. Was walking around the room. No lightheadedness, syncope. Blood pressure is stable. Has diuresed and negative balance of weight 100 cc without getting any diuretic regimen. Review of Systems Review of Systems Yes all other systems are reviewed and are negative Constitutional: Reports weakness Eyes: Reports no additional eye complaints Reports system reviewed and no additional complaints, except as documented Cardiovascular: Reports no additional cardiovascular complaints and Reports dyspnea on exertion Respiratory: Reports no additional respiratory complaints and Reports dyspnea on exertion Gastrointestinal: Reports no additional gastrointestinal complaints Reports weakness Physical Exam Vital Signs: Last Vital Signs Temp 96.7 F L 02/26/25 07:58 Pulse 114 H 02/26/25 07:58 Resp 16 02/26/25 07:58 BP 116/70 02/26/25 07:58 Pulse Ox 97 02/26/25 07:58 O2 Del Method Room Air 02/26/25 07:58 O2 Flow Rate 2 02/23/25 15:45 BMI result Body Mass Index 24.8 Const General: cooperative and comfortable Nutritional Appearance: average body habitus Orientation/consciousness: patient oriented x3 Neck Neck: Yes trachea midline, Yes supple and Yes no JVD Resp Auscultation: clear to auscultation bilaterally Cardio Rate: tachycardic Heart sounds: S1 normal heart sound present, S2 normal heart sound present, no click, no gallops and no murmurs GI Auscultation: normal bowel sounds Neuro General: patient oriented x3, moves all extremities and other (Imbalance) Objective Labs and Meds 02/25/25 07:33 02/25/25 07:33 Progress Note: A&P Assessment and plan (1) Atrial flutter with rapid ventricular response: Status: Acute Assessment and Plan: Atrial flutter with difficult control rate with variable blood pressure and complicated by pericardial effusion with bloody effusion. See below. 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 If that has no significant worsening of his pericardial effusion and/or improvement and can be started on Eliquis therapy will pursue BARRY guided cardioversion hopefully tomorrow depending on the scheduling in the OR. For now continue digoxin. Please add low-dose Lopressor 12.5 mg q.6 and closely flutter blood pressure. If his heart rate gets improved with medical regimen that would push off cardioversion into future. Hold Eliquis for now (2) Pericardial effusion: Status: Acute Assessment and Plan: Pericardial effusion related to pericarditis and possibly initiation of Eliquis therapy. Continue colchicine therapy. Clinically does not have any pericarditis symptoms at this point time. Follow-up limited echocardiogram as above and will follow. Will continue to follow with you Time Spent With Patient Time: Total time managing care of this patient today ____ minutes. Progress Note: Quality Stroke Does the patient have a stroke diagnosis?: No Procedures Date of Service Date of Service: 02/26/25
[2025-02-26 12:00] VITALS: BP 117/68; PULSE 116; RESP 18; TEMP 36.6; O2SAT 99
[2025-02-26] MEDS: Metoprolol Tartrate 12.5 MG HALFTAB PO ×2 (12:06→20:19)
[2025-02-26 15:37] VITALS: BP 105/63; PULSE 114; RESP 18; TEMP 36.8; O2SAT 97
--- NOTE | 2025-02-26 16:22 | HO.PM.IMPN ---
Subjective Subjective Date of Service: 02/26/25 Interval History: Reports episode of nausea and vomiting after breakfast; no abd pain Otherwise feeling better today Has been OOB and walking in the [place] Some SOB with ambulation Denies chest pain or palpitations Continues to be in a flutter in the 110s Review of Systems Review of Systems: Yes all other systems are reviewed and are negative Physical Exam Exam: Exam: General: AOx3, no acute distress Resp: Lungs CTA CVS: Irregularly irregular rhythm, tachycardic GI: +BS, NT, no distention Skin: Warm, dry Neuro: Cranial nerves II-XII grossly intact bilaterally. Motor grossly intact bilaterally Extremities: No edema Psych: Calm, cooperative Vital Signs: Vital Signs: Last Vital Signs Temp 98.3 F 02/26/25 15:37 Pulse 114 H 02/26/25 15:37 Resp 18 02/26/25 15:37 BP 105/63 02/26/25 15:37 Pulse Ox 97 02/26/25 15:37 O2 Del Method Room Air 02/26/25 15:37 O2 Flow Rate 2 02/23/25 15:45 BMI result Body Mass Index 24.8 Objective Data Active Medications Acetaminophen (Acetaminophen 325 Mg Tablet) 650 mg PO Q6H PRN PRN Reason: Pain, Mild 1-3,fever,headache Apixaban (Apixaban 5 Mg Tablet) 5 mg PO BID [facility] On Hold: 02/22/25 15:57 Last Admin: 02/22/25 08:49 Dose: 5 mg Documented By: BRYAN Atorvastatin Calcium (Atorvastatin Calcium 80 Mg Tablet) 80 mg PO BEDTIME [facility] Last Admin: 02/25/25 19:48 Dose: 80 mg Documented By: BEATRIZ Calcium Carbonate (Calcium Carbonate 750 Mg Tab.Chew) 750 mg PO Q4H PRN PRN Reason: Heartburn Carbamide Peroxide (Carbamide Peroxide 6.5% Otic 15 Ml Drpbtl) 5 drop EAR-BOTH BID PRN PRN Reason: Ear wax Stop: 03/02/25 10:11 Colchicine (Colchicine 0.6 Mg Tablet) 0.6 mg PO DAILY [facility] Last Admin: 02/26/25 07:57 Dose: 0.6 mg Documented By: IZZY Digoxin (Digoxin 0.25 Mg Tablet) 0.25 mg PO DAILY [facility]; Protocol Last Admin: 02/26/25 07:57 Dose: 0.25 mg Documented By: IZZY Furosemide (Furosemide 20 Mg/2 Ml Vial) 20 mg IVPUSH BID@0900,1800 [facility]; Protocol On Hold: 02/22/25 15:57 Last Admin: 02/22/25 08:51 Dose: 20 mg Documented By: BRYAN Lamotrigine (Lamotrigine 100 Mg Tablet) 300 mg PO DAILY [facility] Last Admin: 02/26/25 07:57 Dose: 300 mg Documented By: IZZY Lamotrigine (Lamotrigine 100 Mg Tablet) 200 mg PO BEDTIME [facility] Last Admin: 02/25/25 19:49 Dose: 200 mg Documented By: BEATRIZ Magnesium Hydroxide (Milk Of Magnesia 30 Ml Oral.Susp) 30 ml PO DAILY PRN PRN Reason: Constipation Melatonin (Melatonin 3 Mg Tablet) 6 mg PO BEDTIME PRN PRN Reason: Insomnia Metoprolol Tartrate (Metoprolol Tartrate 12.5 Mg Halftab) 12.5 mg PO Q6H [facility]; Protocol On Hold: 02/25/25 10:37 Last Admin: 02/25/25 08:39 Dose: Not Given Documented By: BRYAN Non-Admin Reason: Decreased Blood Pressure Metoprolol Tartrate (Metoprolol Tartrate 12.5 Mg Halftab) 12.5 mg PO BID [facility]; Protocol Last Admin: 02/26/25 12:06 Dose: 12.5 mg Documented By: IZZY Naloxone HCl (Naloxone Hcl 0.4 Mg/Ml Vial) 0.04 mg IVPUSH Q5M PRN PRN Reason: Excessive sedation or RR < 8 Omeprazole (Omeprazole 40 Mg Capsule.Dr) 40 mg PO DAILY@0630 [facility] Last Admin: 02/26/25 06:44 Dose: 40 mg Documented By: BEATRIZ Ondansetron HCl (Ondansetron Hcl 4 Mg/2 Ml Vial) 4 mg IVPUSH Q8H PRN PRN Reason: Nausea and Vomiting Last Admin: 02/26/25 09:43 Dose: 4 mg Documented By: IZZY Ropinirole HCl (Ropinirole Hcl 2 Mg Tablet) 2 mg PO BEDTIME [facility] Last Admin: 02/25/25 19:49 Dose: 2 mg Documented By: BEATRIZ Sodium Chloride (0.9 % Sodium Chloride Flush 3 Ml Syringe) 3 ml IVFLUSH QSHIFT [facility] Last Admin: 02/26/25 08:33 Dose: Not Given Documented By: IZZY Non-Admin Reason: Med not scanning Labs 02/25/25 07:33 02/25/25 07:33 Microbiology Microbiology Results: Microbiology 02/23/25 15:45 Gram Stain - Final Pericardial Fluid Anaerobic Culture - Preliminary No growth to date. Body Fluid Culture - Final No growth after 2 days 02/20/25 11:32 Blood Culture - Final Blood - Venous No growth after 5 days. 02/20/25 11:23 Blood Culture - Final Blood - Venous No growth after 5 days. Assessment and Plan (1) Atrial flutter: Status: Acute (2) Pericardial effusion: Status: Acute Plan Patient is a 69-year-old male with PMH notable for demyelinating polyneuropathy, pericarditis, pericardial effusion, stroke, atrial flutter. He was noted to have atrial flutter with rapid ventricular rate and was sent to the ED for further workup/possible cardioversion in the a.m. as this can not be handled outpatient. He reports his only symptom was feeling a little more frail and otherwise had no sick contacts no further concerns. He was also being worked up for autoimmune diseases. Patient is being admitted for possible cardioversion in the a.m.. Other than EKG revealing atrial flutter with RVR, mildly elevated pro BNP workup unrevealing. Cardiology consulted Symptomatic atrial flutter with RVR-unknown duration Patient anticoagulated, not previously on any rate control medication due to orthostatic hypotension and autonomic dysfunction; Troponins WNL Cardiology consulted, planned BARRY guided cardioversion on 02/22 aborted due to large pericardial effusion Pt's BP has been low, but now better: will try metoprolol 12.5 mg bid Received digoxin 25 mg IV q.6 x3; now on maintenance of digoxin 25 mg po daily Continue to hold Eliquis due to hemorrhagic pericardiocentesis Plan on attempting cardioversion again on Thursday if no return of pericardial effusion; NPO after midnight Monitor on telemetry Pericardial effusion [id number] effusion noted on limited echos on 02/03 and 02/06 Pre-op limited echo on 02/22 showed effusion had grown; cardioversion aborted IR CT-guided pericardiocentesis on 02/23 with 200 cc drained at time of procedure PHILIPPE drain in place with additional 100 cc of bloody output during the evening and overnight; no significant drainage during the day; drain pulled by IR Pericardial fluid studies negative; cytology pending Repeat limited echo on 02/24 showed small pericardial effusion with low LVEF of 50-55% Continue colchicine, Motrin stopped Plan is to repeat limited echo on Thursday morning to evaluate for effusion; cardioversion can commence if effusion has not returned Altered mentation Pt appeared mildly confused and complained of lightheadedness, vision changes, and tremors on morning of 02/24 Concerning for possible CVA vs seizure vs panic attack MRI negative for acute abnormality; EEG showed mild generalized slowing with no evidence of seizure disorder Pt denies hx of panic attacks Likely in the setting of chronic neurological disorders, including previous stroke, severe demyelinating neuropathy not responsive to IVIG, and parkinsonism syndrome Acute CHF exacerbation CXR showing bilateral small pleural effusions and mild interstitial edema BNP 448.7-->3516.5-->1991.2 Hold Lasix 20mg IV bid for now due to soft BP Follow lytes, I/O, SCr, daily weight Abd distention/discomfort Pt reports ongoing x2 weeks Unclear etiology: CT of abd/pelvis negative for acute abd, U/S negative for ascites Monitor, treat as above with diuretics Restless leg syndrome Continue ropinirole Continue home Lamictal for possible seizure Pt continues to need hospitalization for persistent symptomatic atrial flutter and pericardial effusion that required pericardialcentesis. Pt needs continued cardiac and neurological monitoring. Plan is to attempt cardioversion again on Thursday. Quality Stroke Does the patient have a stroke diagnosis?: No VTE Prior VTE?: No VTE Risk Level:: Medical - moderate - high VTE Device Contraindication: N/A - Device Ordered VTE Drug Contraindication: N/A - Med Ordered
[2025-02-26] MEDS: 0.9 % Sodium Chloride Flush 3 ML SYRINGE IVFLUSH ×2 (16:50→21:38)
[2025-02-26 20:00] VITALS: BP 120/78; PULSE 64; RESP 18; TEMP 36.3; O2SAT 98
[2025-02-26 23:34] VITALS: BP 110/67; PULSE 110; TEMP 36.8; O2SAT 96
[2025-02-27 03:57] VITALS: BP 115/64; PULSE 114; RESP 20; TEMP 36.6; O2SAT 96
--- NOTE | 2025-02-27 07:00 | CA_ITS ---
Transthoracic Echocardiogram Patient (Last, First, Middle): Chilo Lee, Gender: Male Date of : 1955 Age: 69 Procedure Date: 02/27/2025 Procedure Type: Transthoracic Echocardiogram Location: [facility] [place] Height: 182.88 cm Weight: 82.56 kg BSA: 2.05 m2 Heart Rate: 114 bpm BP: 115 / 64 mmHg Software Architect: Referring MD: Jenifer CASTRO Symptoms: Evaluate for pericardial effusion Study Quality: Adequate/limited for pericardial effusion f/u ECG Rhythm: Atrial flutter with rapid ventricular rate Conclusions: - No significant pericardial effusion. - There is a pleural effusion. Findings Left Ventricle The left ventricular systolic function is low normal. The visually estimated ejection fraction is between 50-55%. Venous The inferior vena cava is dilated and collapses less than 50% with inspiration. Pericardium/Pleural There is a pleural effusion. No significant pericardial effusion. Prior Study Comparison No significant change compared to prior study dated: 02/24/2025. Measurements 2D Linear Measurements IVSd: 0.99 0.6-0.9/0.6-1.0 cm LVIDd: 3.91 3.9-5.3/4.2-5.9 cm LVIDd Index: 1.91 2.4-3.2/2.2-3.1 cm/m2 LVIDs: 2.81 2.0-3.6 cm LVPWd: 0.99 0.7-1.1 cm LV Mass: 150.88 67-162/88-224 g LV Mass Index: 73.60 43-95/49-115 g/m2 2D Systolic Function EF 4C: 60.40 >55% EF 2C: 51.40 >55% EF BiP: 55.80 >55% Right Ventricle TVS' Hector: 9.36 Tricuspid Valve RA Press: 15.00 Updated in Other Vendor System with Status of Final Michael Osorio MD electronically signed on 02/27/2025 10:30:32 AM with status of Final
[2025-02-27 08:00] VITALS: BP 111/73; PULSE 117; RESP 18; TEMP 36.6; O2SAT 97
[2025-02-27 08:11] VITALS: BMI 23.3
[2025-02-27] MEDS: 0.9 % Sodium Chloride Flush 3 ML SYRINGE IVFLUSH ×3 (08:19→23:48)
[2025-02-27] MEDS: Metoprolol Tartrate 12.5 MG HALFTAB PO ×2 (08:20→21:43)
--- NOTE | 2025-02-27 08:34 | PC.NURSE ---
Pt alert and orientedx4. Resting in bed. Provider gave permission to administer PO meds with water this morning, otherwise, NPO. No comlaints other than weakness. Pt currently undergoing Echo, awaiting possible cardioversion today. at bedside, they are very knowledgeable about his condition and care.
[2025-02-27 09:53] LABS: Hematocrit 35.4 % (42.0-52.0); Hemoglobin 11.3 g/dl (14.0-18.0); Mean Corpuscular HGB Conc 31.9 g/dl (31.0-36.0); Mean Corpuscular Hemoglobin 28.2 pg (27.0-33.0); Mean Corpuscular Volume 88.3 fL (80.0-98.0); NRBC Abs Auto 0.000 X10*3/uL (0.0-0.012); NRBC Pct Auto 0.0 /100WBC (0.0-0.2); Platelet Count 359 X10*3/uL (160-400); Red Blood Count 4.01 X10*6/uL (4.60-5.80); White Blood Count 4.8 X10*3/uL (4.8-10.8)
--- NOTE | 2025-02-27 09:59 | PM.PNCARD ---
Subjective Subjective Date of Service: 02/27/25 Principal diagnosis: CHF, persistent atrial flutter, pericardial effusion Interval history: Events of hospitalization reviewed. He has undergone a pericardiocentesis and after that, he states he is actually much better. Shortness of breath is improved. He is ambulating in the hallway without any issues. Still remains in atrial flutter however. Review of Systems Review of Systems Yes all other systems are reviewed and are negative Constitutional: Reports as per HPI and Reports no additional constitutional complaints Eyes: Reports as per HPI and Denies no additional eye complaints Denies system reviewed and no additional complaints, except as documented and Reports as per HPI Cardiovascular: Reports as per HPI, Reports no additional cardiovascular complaints, Denies acrocyanosis, Denies cool extremities, Denies chest pain, Denies leg edema, Denies lightheadedness, Denies palpitations and Denies dyspnea Respiratory: Reports as per HPI, Denies no additional respiratory complaints and Denies dyspnea Gastrointestinal: Reports as per HPI and Denies no additional gastrointestinal complaints Genitourinary: Reports no additional male genitourinary complaints and Reports as per HPI Musculoskeletal: Reports no additional musculoskeletal complaints and Reports as per HPI Skin/Breast: Reports system reviewed and no additional complaints, except as docu Reports system reviewed and no additional complaints, except as documented and Reports as per HPI Psychiatric: Reports no additional psychiatric complaints and Reports as per HPI Endocrine: Reports no additional endocrine complaints, Reports as per HPI and Denies palpitations Hematologic/Lymphatic: Reports no additional hematologic/lymphatic complaints and Reports as per HPI Allergic/Immunologic: Reports no additional allergic/immunologic complaints and Reports as per HPI Physical Exam Vital Signs: Last Vital Signs Temp 97.9 F 02/27/25 08:00 Pulse 117 H 02/27/25 08:00 Resp 18 02/27/25 08:00 BP 111/73 02/27/25 08:00 Pulse Ox 97 02/27/25 08:00 O2 Del Method Room Air 02/27/25 08:00 O2 Flow Rate 2 02/23/25 15:45 BMI result Body Mass Index 23.3 Const General: comfortable and no acute distress Orientation/consciousness: patient oriented x3 HEENT Other: Unremarkable Head: Yes normal to inspection Neck Neck: Yes normal visual inspection Chest Chest palpation & inspection: normal inspection of the chest Resp Auscultation: clear to auscultation bilaterally Cardio Palpation: normal PMI Heart sounds: S1 normal heart sound present, S2 normal heart sound present, no gallops, no murmurs and no rubs GI Palpation (GI): Soft to palpation Back/Spine/Pelvis Other: unremarkable Skin General skin exam: no rashes or lesions noted Neuro General: patient oriented x3 Extrem General: Yes normal to inspection Psych Mental Status: mental status grossly normal Objective Labs and Meds 02/27/25 09:44 02/25/25 07:33 Lab results: Laboratory Results - last 24 hr 02/27/25 09:44 WBC 4.8 RBC 4.01 L Hgb 11.3 L Hct 35.4 L MCV 88.3 MCH 28.2 MCHC 31.9 RDW 14.3 Plt Count 359 MPV 10.5 Absolute Nucleated RBC 0.000 Nucleated RBC % (auto) 0.0 Imaging Radiologist's impression: Impressions CT Scanning Biopsy/Drainage 02/23/25 15:05 Impression: CT guided placement of pericardial drainage catheter Electronically signed by: Cameron Stearns MD 02/23/2025 04:06 PM EDT Progress Note: A&P Assessment and plan (1) Atrial flutter with rapid ventricular response: Status: Acute Assessment and Plan: He was supposed to get a transesophageal echocardiogram/cardioversion but canceled last week because of pericardial effusion and need for stopping Eliquis. It seems that he probably has continued inflammation based on the inflammatory markers. If indeed goes for cardioversion, then he will need uninterrupted anticoagulation for the next month but there is still a risk for recurring hemorrhagic effusion. We discussed about this issue at length and may have to take this conservatively. Probably re-attempt Eliquis and as long as he takes it safely then could consider cardioversion in 4 weeks or so. No definitive plan as yet. For now, remain on Metoprolol, Digoxin. (2) Pericardial effusion: Status: Acute Assessment and Plan: On the bedside echocardiogram seems improved. In the recent immunology workup, JACOB reported as positive-nuclear/homogeneous that could be associated with lupus. I am not clear if he actually has lupus or not but he states he was told he did not have it in the past. Any case, as he had continued high inflammatory markers in spite of colchicine/NSAIDs, maybe worthwhile trying short course of prednisone. Discussed with the hospitalist about this. We will review the echocardiogram from today. Recheck ESR/CRP. Time Spent With Patient Time: Total time managing care of this patient today ____ minutes. Progress Note: Quality Stroke Does the patient have a stroke diagnosis?: No Procedures Date of Service Date of Service: 02/27/25
--- NOTE | 2025-02-27 10:04 | HO.PM.IMPN ---
Subjective Subjective Date of Service: 02/27/25 Interval History: no new complaints Physical Exam Exam: Exam: General: AO X 3, no acute distress Resp: CTA bilateral, no accessory muscles used CVS: S1,S2,RRR GI: soft, non tender, non distended Neuro: motor grossly intact, alert Psych: appropriate affect, appropriate insight Vital Signs: Vital Signs: Last Vital Signs Temp 97.9 F 02/27/25 08:00 Pulse 117 H 02/27/25 08:00 Resp 18 02/27/25 08:00 BP 111/73 02/27/25 08:00 Pulse Ox 97 02/27/25 08:00 O2 Del Method Room Air 02/27/25 08:00 O2 Flow Rate 2 02/23/25 15:45 BMI result Body Mass Index 23.3 Objective Data Active Medications Acetaminophen (Acetaminophen 325 Mg Tablet) 650 mg PO Q6H PRN PRN Reason: Pain, Mild 1-3,fever,headache Apixaban (Apixaban 5 Mg Tablet) 5 mg PO BID JERRY On Hold: 02/22/25 15:57 Last Admin: 02/22/25 08:49 Dose: 5 mg Documented By: BRYAN Atorvastatin Calcium (Atorvastatin Calcium 80 Mg Tablet) 80 mg PO BEDTIME JERRY Last Admin: 02/26/25 20:19 Dose: 80 mg Documented By: MATTHEW Calcium Carbonate (Calcium Carbonate 750 Mg Tab.Chew) 750 mg PO Q4H PRN PRN Reason: Heartburn Carbamide Peroxide (Carbamide Peroxide 6.5% Otic 15 Ml Drpbtl) 5 drop EAR-BOTH BID PRN PRN Reason: Ear wax Stop: 03/02/25 10:11 Colchicine (Colchicine 0.6 Mg Tablet) 0.6 mg PO DAILY [facility] Last Admin: 02/27/25 08:19 Dose: 0.6 mg Documented By: SINCERE Digoxin (Digoxin 0.25 Mg Tablet) 0.25 mg PO DAILY [facility]; Protocol Last Admin: 02/27/25 08:21 Dose: 0.25 mg Documented By: SINCERE Furosemide (Furosemide 20 Mg/2 Ml Vial) 20 mg IVPUSH BID@0900,1800 [facility]; Protocol On Hold: 02/22/25 15:57 Last Admin: 02/22/25 08:51 Dose: 20 mg Documented By: BRYAN Lamotrigine (Lamotrigine 100 Mg Tablet) 300 mg PO DAILY [facility] Last Admin: 02/27/25 08:20 Dose: 300 mg Documented By: SINCERE Lamotrigine (Lamotrigine 100 Mg Tablet) 200 mg PO BEDTIME [facility] Last Admin: 02/26/25 20:19 Dose: 200 mg Documented By: MATTHEW Magnesium Hydroxide (Milk Of Magnesia 30 Ml Oral.Susp) 30 ml PO DAILY PRN PRN Reason: Constipation Melatonin (Melatonin 3 Mg Tablet) 6 mg PO BEDTIME PRN PRN Reason: Insomnia Metoprolol Tartrate (Metoprolol Tartrate 12.5 Mg Halftab) 12.5 mg PO BID [facility]; Protocol Last Admin: 02/27/25 08:20 Dose: 12.5 mg Documented By: SINCERE Naloxone HCl (Naloxone Hcl 0.4 Mg/Ml Vial) 0.04 mg IVPUSH Q5M PRN PRN Reason: Excessive sedation or RR < 8 Omeprazole (Omeprazole 40 Mg Capsule.Dr) 40 mg PO DAILY@0630 [facility] Last Admin: 02/27/25 06:08 Dose: Not Given Documented By: MATTHEW Non-Admin Reason: NPO Ondansetron HCl (Ondansetron Hcl 4 Mg/2 Ml Vial) 4 mg IVPUSH Q8H PRN PRN Reason: Nausea and Vomiting Last Admin: 02/26/25 09:43 Dose: 4 mg Documented By: IZZY Prednisone (Prednisone 20 Mg Tablet) 40 mg PO DAILY [facility] Ropinirole HCl (Ropinirole Hcl 2 Mg Tablet) 2 mg PO BEDTIME [facility] Last Admin: 02/26/25 20:18 Dose: 2 mg Documented By: MATTHEW Sodium Chloride (0.9 % Sodium Chloride Flush 3 Ml Syringe) 3 ml IVFLUSH QSHIFT [facility] Last Admin: 02/27/25 08:19 Dose: 3 ml Documented By: SINCERE Labs 02/27/25 09:44 02/25/25 07:33 Labs: Laboratory Results - last 24 hr 02/27/25 09:44 MCV 88.3 MCH 28.2 MCHC 31.9 RDW 14.3 Plt Count 359 MPV 10.5 Absolute Nucleated RBC 0.000 Nucleated RBC % (auto) 0.0 Microbiology Microbiology Results: Microbiology 02/23/25 15:45 Gram Stain - Final Pericardial Fluid Anaerobic Culture - Preliminary No growth to date. Body Fluid Culture - Final No growth after 2 days Assessment and Plan (1) Pericarditis: Status: Acute Plan 69M PMH demyelinating polyneuropathy, pericarditis, pericardial effusion, CVA, paroxysmal atrial flutter was sent to ED for cardioversion but found to have hemorrhagic pericardial effusion. Paroxysmal atrial flutter with rapid ventricular response Deferring BARRY cardioversion due to hemorrhagic pericardial effusion Continue digoxin and metoprolol Hemorrhagic pericardial effusion Status post pericardiocentesis Follow up pathology Immune workup with 80:1 positive JACOB ?sle Starting prednisone, continue colchicine Outpatient Rheumatology follow up Follow up repeat limited echo Transaminitis ? Autoimmune versus congestion Liver function appears intact DVT prophylaxis-mechanical due to hemorrhagic pericardial effusion Full code reason for continued hospitalization: Still in rapid a flutter Quality Stroke Does the patient have a stroke diagnosis?: No VTE Prior VTE?: No VTE Risk Level:: Medical - moderate - high VTE Device Contraindication: N/A - Device Ordered VTE Drug Contraindication: N/A - Med Ordered
[2025-02-27 10:06] LABS: Anion Gap 12 (12-20); Blood Urea Nitrogen 12 mg/dL (9-16); Calcium 8.7 mg/dL (8.4-10.2); Carbon Dioxide 26 mmol/L (22-29); Chloride 107 mmol/L (96-108); Creatinine Clr Calc Pharmacy 79.4; Estimated Glomerular Filt Rate > 60; Potassium 4.2 mmol/L (3.3-5.1); Sodium 141 mmol/L (135-145)
--- NOTE | 2025-02-27 11:20 | P.CDIM_ITS ---
PROVIDER RESPONSE TEXT: To clarify, the appropriate diagnosis supported by the clinical indicators: Diastolic: acute QUERY TEXT: PHYSICIAN'S DOCUMENTATION REQUEST Date of Query: 02/27/2025 11:07 AM EDT Patient Name: Chilo Lee Admit Date: 02/21/2025 Dear Ulisses Joaquin MD, A review of the medical record indicates additional documentation may be needed. Please review below and update the documentation accordingly. Clinical Indicators: Cardiology note 02/27/25 - Principal diagnosis: CHF, persistent atrial flutter, pericardial effusion LVEF 50-55%, BNP [id number] Hold Lasix Progress note 02/26/25 - Acute CHF exacerbation. CXR showing bilateral small pleural effusions and mild interstitial edema. Follow lytes, I/O, SCr, daily weights. Please provide further specificity regarding the most likely type and acuity of CHF you are evaluating, treating, or monitoring. Systolic Please specify if Acute, Chronic, or Acute on chronic, or Unable to determine Diastolic Please specify if Acute, Chronic, or Acute on chronic, or Unable to determine Combined Systolic/Diastolic Please specify if Acute, Chronic, or Acute on chronic, or Unable to determine Other (explain) Clinically unable to determine (explain) Thank you, Kassidy Garcia, CCS, CDIS Use of terms such as suspected, likely, concern for, or probable (associated with a specific diagnosis that is being evaluated, monitored, or treated as if it exists) are acceptable and can be coded in the inpatient setting, when documented at the time of discharge. Please use your independent medical judgment in providing your response. THIS QUERY IS PART OF THE PERMANENT MEDICAL RECORD
[2025-02-27 12:00] VITALS: BP 103/62; PULSE 116; RESP 16; TEMP 36.4; O2SAT 98
--- NOTE | 2025-02-27 12:43 | PC.NURSE ---
Addendum entered by Ariadne Capellan RN 02/27/25 18:25: Debrox was helpful. He reports his hearing improved after administration. Original Note: Reports that his right ear feels plugged. Requesting an ear wash. notified.
[2025-02-27] MEDS: Carbamide Peroxide 6.5% Otic 15 ML DRPBTL 5 DROP EAR-RIGHT (13:47)
--- NOTE | 2025-02-27 15:20 | MHC.CM.PN ---
EMR REVIEWED AND PER MD ROUNDS, PATIENT IS NOT MEDICALLY CLEARED FOR DISCHARGE DUE TO MANAGEMENT OF ATRIAL FLUTTER W/ RVR.
--- NOTE | 2025-02-27 15:37 | PC.NURSE ---
Pt voices concerns about transferring his care to [facility] after discharge. He and his family will be moving to [place] in a couple of weeks. He has neurology/stroke clinic appointments at [facility] already.
[2025-02-27 15:46] VITALS: BP 106/68; PULSE 118; RESP 18; TEMP 36.6; O2SAT 95
[2025-02-27 20:00] VITALS: BP 115/64; PULSE 119; RESP 18; TEMP 36.4; O2SAT 96
[2025-02-27 23:41] VITALS: BP 103/59; PULSE 120; RESP 18; TEMP 36.5; O2SAT 96
[2025-02-28 03:16] VITALS: BP 118/64; PULSE 106; RESP 18; TEMP 36.4; O2SAT 94
[2025-02-28 06:00] VITALS: BMI 24.0
[2025-02-28 07:38] VITALS: BP 106/61; PULSE 99; RESP 20; TEMP 36.2; O2SAT 97
[2025-02-28] MEDS: Metoprolol Tartrate 12.5 MG HALFTAB PO (09:18)
[2025-02-28] MEDS: 0.9 % Sodium Chloride Flush 3 ML SYRINGE IVFLUSH (09:19)
--- NOTE | 2025-02-28 09:51 | P.DS_ITS ---
DS: Providers Provider Date of Service: 02/28/25 Date of admission: 02/21/25 15:01 Date of discharge: 02/28/25 Primary care physician: Khadra Romo MD Consults: 02/20/25 17:15 Consult to Cardiology Routine Consulting Provider: [facility] Reason for consultation: cardioversion 02/24/25 10:35 Consult to Neurology Stat Consulting Provider: [facility] Reason for consultation: AMS DS: Diagnosis Discharge Diagnosis (1) Pericarditis: Status: Acute (2) Atrial flutter with rapid ventricular response: Status: Acute DS: Summary Hospital Course Hospital Course: from initial hpi: Chief Complaint: Outpatient Cardiology noted him to be in Aflutter, sent him for further wor Patient is a 69-year-old male with PMH notable for demyelinating polyneuropathy, pericarditis, pericardial effusion, stroke, atrial flutter. He was noted to have atrial flutter with rapid ventricular rate and was sent to the ED for further workup/possible cardioversion in the a.m. as this can not be handled outpatient. He reports his only symptom was feeling a little more frail and otherwise had no sick contacts no further concerns. He was also being worked up for autoimmune diseases. In the ER they trialed a low dose of 2.5 mg IV metoprolol with significant drop in blood pressure to the low 70s with quick improvement on fluid resuscitation. Hence patient is being admitted for possible cardioversion in the a.m.. Other than EKG revealing atrial flutter with RVR, mildly elevated pro BNP workup unrevealing. Cardiology consulted hospital course: Patient was admitted for paroxysmal atrial flutter with rapid ventricular response. Initially plan for BARRY and cardioversion however noted to have alek cardial effusion with concern for tamponade physiology. Underwent pericardiocentesis which revealed hemorrhagic effusion. Eliquis was held. Pathology is still pending and should be followed up. Immune workup showed intermediate JACOB positivity. Was started on prednisone taper and will follow up with Rheumatology as outpatient. Repeat echo showed resolution. For atrial flutter was started on metoprolol 12.5 mg b.i.d. and digoxin. Patient is feeling better and will be discharged home. Time Attestation Discharge Coordination Time (in mins): 35 Quality: Safe Use of Opioids Does Pt have an Active Cancer Diagnosis on the Problem List?: No Quality: Stroke Does the patient have a stroke diagnosis?: No Physical Exam Exam: Exam: General: AO X 3, no acute distress Resp: CTA bilateral, no accessory muscles used CVS: S1,S2,RRR GI: soft, non tender, non distended Neuro: motor grossly intact, alert Psych: appropriate affect, appropriate insight Vital Signs: Vital Signs: Last Vital Signs Temp 97.2 F 02/28/25 07:38 Pulse 99 02/28/25 07:38 Resp 20 02/28/25 07:38 BP 106/61 02/28/25 07:38 Pulse Ox 97 02/28/25 07:38 O2 Del Method Room Air 02/28/25 07:38 O2 Flow Rate 2 02/23/25 15:45 BMI result Body Mass Index 24.0 DS: Data Data Completed and Pending Pending studies at discharge: Pending at discharge 02/23/25 16:00 Cytology [PTH] Routine Labs on day of discharge: Laboratory Results - last 24 hr 02/27/25 09:44 WBC 4.8 RBC 4.01 L Hgb 11.3 L Hct 35.4 L MCV 88.3 MCH 28.2 MCHC 31.9 RDW 14.3 Plt Count 359 MPV 10.5 Absolute Nucleated RBC 0.000 Nucleated RBC % (auto) 0.0 ESR 25 H Sodium 141 Potassium 4.2 Chloride 107 Carbon Dioxide 26 Anion Gap 12 BUN 12 Creatinine 0.95 Estim Creat Clear Calc 79.4 Estimated GFR > 60 Random Glucose 104 Calcium 8.7 C-Reactive Protein 3.64 H Discharge Plan Discharge Anticipated Discharge Date/Time: 02/28/25 09:46 Patient Disposition: Home Health Service Discharge Diagnosis: pericarditis, aflutter Referrals: Khadra Romo MD [Primary Care Provider, Family Practice] - 1 Week Yung Allan MD [Physician, Rheumatology] - 1 Week Referral Note: pericarditis, ?positive JACOB Discharge Medications: New digoxin 250 mcg (0.25 mg) Tablet 0.25 mg PO DAILY 90 Days Qty: 90 0RF Protocol: Hold for HR <: HOLD for HR < : 60 metoprolol tartrate 25 mg tablet 12.5 mg PO BID 90 Days Qty: 90 0RF prednisone 20 mg tablet 40 mg PO DAILY Qty: 21 0RF Rx Instructions: 40mg daily for 7 days then 20mg daily for 7 days Continued colchicine 0.6 mg tablet 0.6 mg PO DAILY atorvastatin 80 mg Tablet 80 mg PO BEDTIME 30 Days Qty: 30 0RF lamotrigine [Lamictal] 200 mg tablet 200 mg PO BID lamotrigine 100 mg tablet 100 mg PO DAILY ropinirole 2 mg tablet 2 mg PO BEDTIME omeprazole 40 mg Capsule,Delayed Release(Dr/Ec) 40 mg PO DAILY@0630 Qty: 30 0RF apixaban 5 mg tablet 5 mg PO BID Qty: 60 0RF Discontinued ibuprofen 800 mg tablet 800 mg PO TID Qty: 42 0RF Discharge Orders: Discharge Order (Routine); Ordered 02/28/25 Ordered By: Ulisses Joaquin Diet: Advance to usual diet Activity on Discharge: As tolerated Stand Alone Forms: Patient Portal Discharge page Print Language: Faroese Other Ambulatory Orders: Complete Blood Count no Diff (Routine) Timeframe: 1 Week Facility: [facility] - Location: Laboratory Ordered By: Ulisses Blanco Panel (Routine) Timeframe: 1 Week Facility: [facility] - Location: Laboratory Ordered By: Ulisses Joaquin Digoxin (Routine) Timeframe: 1 Week Facility: [facility] - Location: Laboratory Ordered By: Ulisses Joaquin Care Plan Goals: Recovery Health Concerns: A flutter and pericardial effusion Plan of Treatment: Start digoxin, metoprolol, follow up labs Prednisone taper and follow up with Rheumatology Assessment: See above
--- NOTE | 2025-02-28 10:30 | P.F2F_ITS ---
Service Date Service Date: 02/28/25 Encounter Date of encounter: 02/28/25 Reasons for Services Signs and symptoms assessed: Weakness and tachycardia and ambulation Reason for senior living: medication management, medication treatment and teach disease management Homebound: Leaving the home is medically contraindicated at this time without the asist of a device and/or another person due th the listed conditions above and below. Reason homebound: unsteady gait / fall risk and weakness related to hospital stay Certification: Based on the above findings, I certify that this patient is confined to the home and needs intermittent senior living care, physical therapy and/or speech therapy, or continues to need occupational therapy. The patient is under my care, and I have initiated the establishment of the plan of care. The patient will be followed by a physician who will periodically review the plan of care. Time Spent With Patient Time: Total time managing care of this patient today ____ minutes.
--- NOTE | 2025-02-28 11:20 | PM.PNCARD ---
Subjective Subjective Date of Service: 02/28/25 Principal diagnosis: CHF, persistent atrial flutter, pericardial effusion Interval history: He was seen about 09:00. He states he was feeling good. He was eating breakfast. No shortness of breath or in fact any complaints. Heart rate is around 100-105/Min on telemetry. Overnight, in the 80s. In atrial flutter. Review of Systems Review of Systems Yes all other systems are reviewed and are negative Constitutional: Reports as per HPI and Reports no additional constitutional complaints Eyes: Reports as per HPI and Denies no additional eye complaints Denies system reviewed and no additional complaints, except as documented and Reports as per HPI Cardiovascular: Reports as per HPI, Reports no additional cardiovascular complaints, Denies acrocyanosis, Denies cool extremities, Denies chest pain, Denies leg edema, Denies lightheadedness, Denies palpitations and Denies dyspnea Respiratory: Reports as per HPI, Denies no additional respiratory complaints and Denies dyspnea Gastrointestinal: Reports as per HPI and Denies no additional gastrointestinal complaints Genitourinary: Reports no additional male genitourinary complaints and Reports as per HPI Musculoskeletal: Reports no additional musculoskeletal complaints and Reports as per HPI Skin/Breast: Reports system reviewed and no additional complaints, except as docu Reports system reviewed and no additional complaints, except as documented and Reports as per HPI Psychiatric: Reports no additional psychiatric complaints and Reports as per HPI Endocrine: Reports no additional endocrine complaints, Reports as per HPI and Denies palpitations Hematologic/Lymphatic: Reports no additional hematologic/lymphatic complaints and Reports as per HPI Allergic/Immunologic: Reports no additional allergic/immunologic complaints and Reports as per HPI Physical Exam Vital Signs: Last Vital Signs Temp 97.2 F 02/28/25 07:38 Pulse 99 02/28/25 07:38 Resp 20 02/28/25 07:38 BP 106/61 02/28/25 07:38 Pulse Ox 97 02/28/25 07:38 O2 Del Method Room Air 02/28/25 07:38 O2 Flow Rate 2 02/23/25 15:45 BMI result Body Mass Index 24.0 Const General: comfortable and no acute distress Orientation/consciousness: patient oriented x3 HEENT Other: Unremarkable Head: Yes normal to inspection Neck Neck: Yes normal visual inspection Chest Chest palpation & inspection: normal inspection of the chest Resp Auscultation: clear to auscultation bilaterally Cardio Palpation: normal PMI Heart sounds: S1 normal heart sound present, S2 normal heart sound present, no gallops, no murmurs and no rubs GI Palpation (GI): Soft to palpation Back/Spine/Pelvis Other: unremarkable Skin General skin exam: no rashes or lesions noted Neuro General: patient oriented x3 Extrem General: Yes normal to inspection Psych Mental Status: mental status grossly normal Objective Labs and Meds 02/27/25 09:44 02/27/25 09:44 Progress Note: A&P Assessment and plan (1) Atrial flutter with rapid ventricular response: Status: Acute Assessment and Plan: Originally, plan was for BARRY/cardioversion last week but not performed because of large pericardial effusion noticed immediately before the study. Currently, rate is reasonably well controlled. Would prefer that peak pericarditis is well controlled before re-attempted this as it is a high chance of going back into atrial flutter/fibrillation and additionally need to ensure that he can safely take the anticoagulation without recollection of pericardial effusion. Hence he can continue the rate control meds as currently on. Trial of Eliquis and this was started yesterday. It maybe just reasonable to see EP in an expedited fashion and if able, pursue ablation directly. I am not clear if he is a good candidate for antiarrhythmics post cardioversion especially considering history of neuropathy and other neurological issues. (2) Pericardial effusion: Status: Acute Assessment and Plan: Recent pericarditis which has been difficult to resolve and in spite of being on NSAIDs/colchicine in the inflammatory markers went rather up but they are getting better. Reasonable to just do short course of steroids with a taper. Other option would be an agent like Rilonacept in future. He had also see rheumatology to ensure any autoimmune causes her addressed as the JACOB is reported positive with homogeneous pattern. Plan Discussed with at the bedside. Advised to avoid any strenuous activity as it might push with a heart rate of. Ideally, rest at home with minimal to mild activity. If in case there are any concerns, to contact us immediately or seek emergency care/return to ER. Time Spent With Patient Time: Total time managing care of this patient today ____ minutes. Progress Note: Quality Stroke Does the patient have a stroke diagnosis?: No Procedures Date of Service Date of Service: 02/28/25
--- NOTE | 2025-02-28 11:42 | MHC.CM.PN ---
Addendum entered by Mariella Mendoza 02/28/25 13:56: [facility]IENT. Original Note: SECOND IMM GIVEN 02/28. PATIENT IS MEDICALLY CLEARED FOR DISCHARGE HOME WITH NEW [facility] SERVICES, AWAITING [facility] AGENCY ACCEPTANCE. PATIENTS WILL TRANSPORT HIM HOME TODAY.
== END 2025-02-28 11:02 | disposition home health service (06) | DRG 314 ==
LOC: HO.ED 13:02 → HO.EDOVER 17:35 → HO.IMC 02-21 15:28
PROVIDERS: Internal Medicine Cardiovascular Disease; Student in an Organized Health Care Education/Training Program; Admitting Provider Student in an Organized Health Care Education/Training Program; Emergency Provider Emergency Medicine; PCP Family Medicine; Visit Provider Internal Medicine
PROC: (CPT 93312; principal; 2025-02-22 14:00)
PROC: 5A2204Z Restoration of Cardiac Rhythm, Single (ICD-10-PCS; 2025-02-22 14:00)
PROC: 0W9D30Z Drainage of Pericardial Cavity with Drainage Device, Percutaneous Approach (ICD-10-PCS; principal; 2025-02-23 14:00)
DX: I31.9 Disease of pericardium, unspecified (principal); I50.31 Acute diastolic (congestive) heart failure; I48.92 Unspecified atrial flutter; G62.89 Other specified polyneuropathies; G90.9 Disorder of the autonomic nervous system, unspecified; G20.A1 Parkinson's disease without dyskinesia, without mention of fluctuations; G25.81 Restless legs syndrome; Z79.01 Long term (current) use of anticoagulants; Z79.899 Other long term (current) drug therapy
CPT/HCPCS: 33016; 36415; 70450; 70551; 71045; 71046; 74177; 76705; 80048; 80053; 81001; 82042; 82140; 82248; 82947; 83605; 83690; 83735; 83880; 83986; 84157; 84484; 85025; 85027; 85610; 85652; 86140; 87040; 87070; 87073; 87205; 87502; 87635; 88112; 88305; 89051; 92960; 93005; 93308; 95819; 99152; 99212; 99222; 99284; 99285; C1729; J0616; J1160; J1938; J2003; J2250; J2405; J2704; J3010; J7120; Q9967

== ENCOUNTER → 2025-02-20 11:38 | Outpatient (BNV) | payer MEDICARE, SELFPAY | PROVIDERS: Emergency Provider Emergency Medicine; PCP Family Medicine; Visit Provider Radiology Diagnostic Radiology | DX: G45.4 Transient global amnesia (principal); R10.11 Right upper quadrant pain; R06.00 Dyspnea, unspecified | CPT/HCPCS: 70450; 71045; 76705 ==

== ENCOUNTER → 2025-02-20 17:16 | Outpatient (BNV) | payer MEDICARE, SELFPAY | PROVIDERS: Admitting Provider Student in an Organized Health Care Education/Training Program; Emergency Provider Emergency Medicine; PCP Family Medicine; Visit Provider Student in an Organized Health Care Education/Training Program | DX: I48.92 Unspecified atrial flutter (principal) | CPT/HCPCS: 99222; 99233 ==

== ENCOUNTER → 2025-02-20 17:16 | Outpatient (BNV) | payer MEDICARE, SELFPAY | PROVIDERS: Admitting Provider Student in an Organized Health Care Education/Training Program; Emergency Provider Emergency Medicine; PCP Family Medicine; Visit Provider Internal Medicine Cardiovascular Disease | DX: I48.92 Unspecified atrial flutter (principal); I31.39 Other pericardial effusion (noninflammatory) | CPT/HCPCS: 99222; 99233; 99499 ==

== ENCOUNTER 2025-02-21 15:01 | Outpatient (BNV) | payer MEDICARE, SELFPAY | END 2025-02-24 12:00 | PROVIDERS: Admitting Provider Student in an Organized Health Care Education/Training Program; Emergency Provider Emergency Medicine; PCP Family Medicine; Visit Provider Internal Medicine Cardiovascular Disease | DX: I31.39 Other pericardial effusion (noninflammatory) (principal) | CPT/HCPCS: 93308 ==

== ENCOUNTER 2025-02-21 15:01 | Outpatient (BNV) | payer MEDICARE, SELFPAY | END 2025-02-23 08:00 | PROVIDERS: Admitting Provider Student in an Organized Health Care Education/Training Program; Emergency Provider Emergency Medicine; PCP Family Medicine; Visit Provider Student in an Organized Health Care Education/Training Program | DX: Z46.82 Encounter for fitting and adjustment of non-vascular catheter (principal); I31.39 Other pericardial effusion (noninflammatory) | CPT/HCPCS: 33016 ==

== ENCOUNTER 2025-02-21 15:01 | Outpatient (BNV) | payer MEDICARE, SELFPAY | END 2025-02-24 12:00 | PROVIDERS: Admitting Provider Student in an Organized Health Care Education/Training Program; Emergency Provider Emergency Medicine; PCP Family Medicine; Visit Provider Radiology Diagnostic Radiology | DX: R41.82 Altered mental status, unspecified (principal) | CPT/HCPCS: 70551 ==

== ENCOUNTER 2025-02-21 15:01 | Outpatient (BNV) | payer MEDICARE, SELFPAY | END 2025-02-22 11:38 | PROVIDERS: Admitting Provider Student in an Organized Health Care Education/Training Program; Emergency Provider Emergency Medicine; PCP Family Medicine; Visit Provider Internal Medicine Cardiovascular Disease | DX: I31.39 Other pericardial effusion (noninflammatory) (principal) | CPT/HCPCS: 93308 ==

== ENCOUNTER 2025-02-21 15:01 | Outpatient (BNV) | payer MEDICARE, SELFPAY | END 2025-02-23 17:45 | PROVIDERS: Admitting Provider Student in an Organized Health Care Education/Training Program; Emergency Provider Emergency Medicine; PCP Family Medicine; Visit Provider Internal Medicine Cardiovascular Disease | DX: I48.92 Unspecified atrial flutter (principal); I44.1 Atrioventricular block, second degree | CPT/HCPCS: 93010 ==

== ENCOUNTER 2025-02-21 15:01 | Outpatient (BNV) | payer MEDICARE, SELFPAY | END 2025-02-27 10:48 | PROVIDERS: Admitting Provider Student in an Organized Health Care Education/Training Program; Emergency Provider Emergency Medicine; PCP Family Medicine; Visit Provider Radiology Diagnostic Radiology | DX: J90 Pleural effusion, not elsewhere classified (principal); J98.11 Atelectasis | CPT/HCPCS: 71045 ==

== ENCOUNTER 2025-02-21 15:01 | Outpatient (BNV) | payer MEDICARE, SELFPAY | END 2025-02-27 07:00 | PROVIDERS: Admitting Provider Student in an Organized Health Care Education/Training Program; Emergency Provider Emergency Medicine; PCP Family Medicine; Visit Provider Internal Medicine | DX: J90 Pleural effusion, not elsewhere classified (principal); I48.92 Unspecified atrial flutter | CPT/HCPCS: 93308 ==

== ENCOUNTER 2025-02-21 15:01 | Outpatient (BNV) | payer MEDICARE, SELFPAY | END 2025-02-24 13:00 | PROVIDERS: Admitting Provider Student in an Organized Health Care Education/Training Program; Emergency Provider Emergency Medicine; PCP Family Medicine; Visit Provider Psychiatry & Neurology Neurology | DX: R41.0 Disorientation, unspecified (principal) | CPT/HCPCS: 95819 ==

== ENCOUNTER → 2025-02-21 15:01 | Outpatient (BNV) | payer MEDICARE, SELFPAY | PROVIDERS: Admitting Provider Student in an Organized Health Care Education/Training Program; Emergency Provider Emergency Medicine; PCP Family Medicine; Visit Provider Psychiatry & Neurology Neurology | DX: R41.82 Altered mental status, unspecified (principal) | CPT/HCPCS: 99222 ==

== ENCOUNTER 2025-03-08 12:00 | Outpatient (REF) | payer MEDICARE, SELFPAY ==
--- OUTSIDE RECORDS SUMMARY | 2025-03-03 09:40 | XMS_ITS | Encounter Summary ---
Author Organization [facility] Address [address] [place] [address] Phone Care Team Providers Care Insurance Agency Sales Manager Name Role Phone Khadra Romo MD Primary Care Provider [phone] John Chopra MD Unavailable [phone] Rai Pendleton-Alonzo Zelaya MD Unavailable Reason for Referral * Consultation (Within 2 weeks) - New Request Specialty Diagnoses / Procedures Referred By Senthil wise Referred To Contact Cardiology Diagnoses Atrial fibrillation with RVR Acute idiopathic pericarditis Khadra Romo MD [address] [facility] [address] [place] [address] Phone: tel: fax: mailto:[email or web address] Referral ID Status Reason Start Date Expiration Date V isits Requested Visits Authorized [id number] New Request 03/03/2025 03/03/2026 1 1 Reason for Visit * Reason Comments Hospital Follow-up 02/28 - discharge lopez mmary in media Heart Problem Encounter Details Date Type Department Care Team (Late st Contact Info) Description 03/03/2025 10:40 AM EDT Office Visit [facility] [place] [facility] [address] [facility] [address] [place] [address] Khadra Romo MD [address] [place] [address] [address] [place] [address] [email or web address] Atrial fibrillation with RVR (Primary Dx); Acute idiopathic pericarditis; Ischemic stroke of frontal lobe; Orthostatic hypotension; Parkinsonism, unspecified Parkinsonism type Social History Tobacco Use Types Packs/Day Years Used Date Smoking Tobacco: Never Smokeless Tobacco: Never Alcohol Use Standard Drinks/Week Comments Yes 0 (1 standard drink = 0.6 oz pur e alcohol) Do not drink every week Home Health Assessment: Transportation Answer Date Recorded Lack of Transportation (Medical) No 03/02/2025 Lack of Transportation (Non-Medical) No 03/02/2025 Patient Unable or Declines to Respond No 03/02/2025 Child or Family Care Answer Date Record [...] is your housing situation today? I have moisetabby zhao 05/28/2024 How many times have you move [...] AM EST documented as of this encounter Last Filed Vital Signs Vital Sign Reading Time Taken Comments Blood Pressure 126/62 03/03/2025 10:33 AM EDT Pulse 117 03/03/2025 10:33 AM EDT Temperature - - Respiratory Rate - - Oxygen Saturation 98% 03/03/2025 10:33 AM EDT Inhaled Oxygen Concentration - - Weight - - Height - - Body Mass Index - - documented in this encounter Progress Notes * Khadra Romo MD - 03/03/2025 10:40 AM EDT Chilo Lee is a 69 y.o. male here with cc: Chief Complaint Patient presents with Hospital Follow-up 02/28 - discharge summary in media Heart Problem Chilo Lee was admitted to [facility] on 02/21/2025 for pericarditis with tamponade and a flutter with RVR and discharged to home on 02/28. The patient was contacted by office staff on 03/01 and scheduled for today's [id number] visit, requiring high complexity medical decision making. History of Present Illness Atrial Flutter - Diagnosed with atrial flutter - Currently on metoprolol 25 mg and digoxin. Unable to tolerate higher doses of antihypertensive medication - Scheduled for blood work for one week post-discharge with his wick tender, presumably including a dig level - Advised to undergo ablation therapy. He and I discussed this on 02/10 after his previous hospitalization for atrial fibrillation. His wick tender did not raise the subject until this more recent hospitalization. He wants to know why this potentially permanent solution was not discussed previously. Pericarditis - General improvement following successful pericardiocentesis - Shift in breathing pattern towards mouth breathing, particularly after exertion - Heart rate fluctuating between 115 and 127 beats per minute - Decrease in heart rate to the low 100s upon waking, lasting for approximately 30 minutes - No palpitations or lightheadedness - Currently on a high dose of NSAIDs, switched to prednisone upon discharge Stroke Suffered an ischemic stroke of the left frontal lobe in late January - Appointment with stroke neurologist on 03/15/2025 - Someone told him that this was inappropriate and he would like my opinion - Experiencing balance issues attributed to pre-existing neurological condition (parkinsonian syndrome,? CIDP) - Using a walker for mobility, discontinued use yesterday, resulting in increased balance difficulties Orthostatic Hypotension - Diagnosed with orthostatic hypotension - Blood pressure rises when sitting down - Keeping a log of blood pressure readings, which have been normal during hospital stay - Noticed fluctuations in heart rate He expresses concern about his wick tender's recommendation to discontinue Lipitor due to potential liver function issues. His transaminases danish to about 3X ULN during his hospital stay but nobody mentioned this at the time. Instead, when he went to [facility] his refill, he was told it had been denied because of the transaminases. He has an upcoming appointment with his wick tender in about a week and is considering centralizing his care at [facility]. [place] to the [place] area [place] the [place]. He and his closed on a house in [place] and are now making plans to put theirhouse here on the market. They will move soon as it is sold. Current Outpatient Medications on File Prior to Visit Medication Sig Dispense Refill Last Dispense apixaban (ELIQUIS) 5 mg tablet Take 5 mg by mouth 2 (two) times a day. Unknown (patient-reported) colchicine (COLCRYS) 0.6 mg tablet Take 1 tablet by mouth every morning. Unknown (patient-reported) digoxin (LANOXIN) 250 mcg (0.25 mg) tablet Take 250 mcg by mouth daily. Hold for HR <60 Unknown (patient-reported) lamoTRIgine (LAMICTAL) 200 MG IMMEDIATE release tablet Take 200 mg by mouth. 300 mg in the morning and 200 mg bedtime Unknown (patient-reported) metoprolol tartrate (LOPRESSOR) 25 MG tablet Take 12.5 mg by mouth 2 (two) times a day. Unknown (patient-reported) omeprazole (PRILOSEC) 40 MG capsule Take 40 mg by mouth daily. Unknown (patient-reported) predniSONE (DELTASONE) 20 MG tablet Take 40 mg by mouth daily. 40mg daily x 7 days then 20mg daily x 7 days Unknown (patient-reported) rOPINIRole (REQUIP) 2 MG tablet Take 1 tablet (2 mg total) by mouth nightly at bedtime. 90 tablet 1Unknown (outside pharmacy) atorvastatin (LIPITOR) 80 MG tablet Take 80 mg by mouth nightly at bedtime. Unknown (patient-reported) [DISCONTINUED] aspirin 81 mg chewable tablet Take 81 mg by mouth daily. (Patient not taking: Reported on 02/10/2025) Unknown (patient-reported) [DISCONTINUED] azithromycin (ZITHROMAX) 250 MG tablet Take 250 mg by mouth daily. (Patient not taking: Reported on 03/01/2025) Unknown (patient-reported) [DISCONTINUED] dextroamphetamine-amphetamine (ADDERALL) 20 mg Tab tablet Take 1 tablet by mouth 2 (two) times a day. (Patient not taking: Reported on 02/10/2025) Unknown (patient-reported) [DISCONTINUED] doxycycline hyclate (DORYX) 100 MG tablet Take 100 mg by mouth 2 (two) times a day. Unknown (patient-reported) [DISCONTINUED] ibuprofen (ADVIL,MOTRIN) 800 MG tablet Take 800 mg by mouth 3 (three) times a day. Unknown (patient-reported) [DISCONTINUED] melatonin [address] 1 tablet (5 mg total) under the tongue nightly at bedtime as needed (insomnia). 90 tablet 1 Unknown (outside pharmacy) [DISCONTINUED] omeprazole (PRILOSEC) 20 MG capsule Take 1 capsule by mouth 2 (two) times a day. (Patient not taking: Reported on 03/01/2025) Unknown (patient-reported) [DISCONTINUED] sildenafiL (VIAGRA) 100 mg tablet Take 1 tablet (100 mg total) by mouth daily as needed. 30 tablet 2 Unknown (outside pharmacy) [DISCONTINUED] therapeutic multivitamin tablet Take 1 tablet by mouth daily. Unknown (patient-reported) No current facility-administered medications on file prior to visit. Review of Systems See HPI BP 126/62 Pulse (!) 117 SpO2 98% Physical Exam General Appearance: WNWD, NAD. Cardiovascular: Irregularly irregular rhythm, tachycardic. No murmurs, rubs, or gallops. 2+ peripheral pulses. Skin: Warm and dry, no rash. Neurological: Slow but otherwise normal gait Psychiatric: A&O x 3, full affect. Assessment & Plan Atrial fibrillation with RVR Currently on 25 mg of metoprolol and digoxin. Risks and benefits of continuing digoxin discussed; advised to monitor for visual disturbances such as seeing green, indicating digoxin toxicity. - Referral to [facility] for further evaluation and management. - Discussed possibility of ablation procedure to potentially alleviate atrial flutter. Orders: Ambulatory referral to [facility] Cardiology - Employed Practices Acute idiopathic pericarditis Continue colchicine Orders: Ambulatory referral to [facility] Cardiology - Employed Practices Ischemic stroke of frontal lobe Deficits from the stroke have happily been rather minimal. Preventing another stroke is of paramount importance. Unless there is new evidence that I am not aware of, my understanding is that statins,while known to cause transaminitis, do not cause actual liver damage. Continuing his statin is veryimportant in preventing another stroke. He may at some point need a workup for his transaminitis tosee if there is another secondary cause. I defer to his wick tender but I do not think this is a magallon course. Orthostatic hypotension Follow-up as scheduled with Dr. Brower Parkinsonism, unspecified Parkinsonism type There are many reasons for him to feel unsteady on his feet right now but I encouraged him to use awalker whenever he feels that he is not 100%. I suggested he might benefit from a handicap placard which he agrees with. He should fill at the top portion including his signature and send it to me sothat I can complete it and send it to the [facility]. I offered him a shower chair as he reports that justtaking a shower tiring him out but he declined. I emphasized that I do not want him doing any of the labor of packing up his house prior to moving. I have maintained a long-term, longitudinal relationship with this patient, overseeing care of chronic conditions, including the above conditions. This care relationship has significantly influenced my decision-making and treatment plans during today's encounter. I obtained verbal consent from the patient or their proxy to record this visit for purposes of producing a draft of the encounter documentation. A portion of this note may have been written with voice dictation. Please excuse any resulting typographical errors. Note to patient: The Cures Act makes medical notes like these available to patients inthe interest of transparency. However, be advised this is a medical document. It is intended primarily as zgxk-cl-ifid communication. It is written in medical language [...] Plan Note - Khadra Romo MD - 03/03/2025 10:40 AM EDT Associated Problem(s): Atrial fibrillation with RVR Currently on 25 mg of metoprolol and digoxin. Risks and benefits of continuing digoxin discussed; advised to monitor for visual disturbances such as seeing green, indicating digoxin toxicity. - Referral to [facility] for further evaluation and management. - Discussed possibility of ablation procedure to potentially alleviate atrial flutter. Orders: Ambulatory referral to [facility] Cardiology - Employed Practices * Assessment & Plan Note - Khadra Romo MD - 03/03/2025 10:40 AM EDT Associated Problem(s): Acute idiopathic pericarditis Continue colchicine Orders: Ambulatory referral to [facility] Cardiology - Employed Practices * Assessment & Plan Note - Khadra Romo MD - 03/03/2025 10:40 AM EDT Associated Problem(s): Ischemic stroke of frontal lobe Deficits from the stroke have happily been rather minimal. Preventing another stroke is of paramount importance. Unless there is new evidence that I am not aware of, my understanding is that statins,while known to cause transaminitis, do not cause actual liver damage. Continuing his statin is veryimportant in preventing another stroke. He may at some point need a workup for his transaminitis tosee if there is another secondary cause. I defer to his wick tender but I do not think this is a magallon course. * Assessment & Plan Note - Khadra Romo MD - 03/03/2025 10:40 AM EDT Associated Problem(s): Orthostatic hypotension Follow-up as scheduled with Dr. Brower * Assessment & Plan Note - Khadra Romo MD - 03/03/2025 10:40 AM EDT Associated Problem(s): Parkinsonian syndrome There are many reasons for him to feel unsteady on his feet right now but I encouraged him to use awalker whenever he feels that he is not 100%. I suggested he might benefit from a handicap placard which he agrees with. He should fill at the top portion including his signature and send it to me sothat I can complete it and send it to the [facility]. I offered him a shower chair as he reports that justtaking a shower tiring him out but he declined. I emphasized that I do not want him doing any of the labor of packing up his house prior to moving. documented in this encounter Plan of Treatment Upcoming Encounters Date Type Department Care Team (Late st Contact Info) Description 03/09/2025 1:00 AM EST Appointment [facility] [address] [place] [phone] Yuliana Givens RN [address] [place] [address] 03/13/2025 Appointment [facility] [address] [place], [place] [phone] Yuliana Givens RN [address] [place] [address] 03/15/2025 3:00 PM EST Office Visit [facility] Department of Neurology [address] [place] [address], 8th Floor, [address] [place] [address] Luanne Rodríguez MD [address] [facility] [address] [place] [address] [email or web address] 03/16/2025 2:00 AM EST Appointment [facility] [address] [place], [place] [phone] Yuliana Givens RN [address] [place] [address] 04/10/2025 11:00 AM EST Office Visit [facility] Neurology Neuromuscular [address], [address] [place] [address] Lenny Pendleton MD [address] [facility] [address] [place] [address] [email or web address] 04/28/2025 1:00 AM EST Appointment [facility] [address] [place], [place] [phone] Yuliana Givens RN [address] [place] [address] 06/09/2025 1:00 PM EST Office Visit [facility] Department of Neurology [address] [place] [address], 8th Floor, [address] [place] [address] John Chopra MD [address] [place] [address] [address] [place] [phone] [email or web address] 07/21/2025 8:40 AM EDT Office Visit [facility] [place] [facility] [address] [facility] [address] [place] [address] Khadra Romo MD [address] [facility] [address] [place] [address] [email or web address] 08/25/2025 11:00 AM EDT Office Visit [facility] Cardiology [facility] [address] [facility], [address] [place] [address] Clementine Brower MD [address] [facility], [address] [place] [phone] [email or web address] Scheduled Referrals Name Type Priority Associated Diagnoses Orde r Schedule Ambulatory referral to [facility] Cardiology - Employed Practices Outpatient Referral Routine Atrial fibrillation with RVR Acute idiopathic pericarditis Ordered: 03/03/2025 documented as of this encounter Visit Diagnoses Diagnosis Atrial fibrillation with RVR- Primary Acute idiopathic pericarditis Ischemic stroke of frontal lobe Orthostatic hypotension Parkinsonism, unspecified Parkinsonism type documented in this encounter Additional Health Concerns Assessment Noted Time PHQ-9 Depression Total Score: 12 06/17/ 024 3:46 PM EST PHQ-2 Depression Total Score: 1 06/28/19 25 2:08 PM EST documented as of this encounter Care Teams Insurance Agency Sales Manager Relationship Specialty Start Date End Date Khadra Romo MD [address] [facility] [address] [place] [address] [email or web address] PCP - General Family Medicine 06/12/21 John Chopra MD [address] [place] [address] [place] [phone] [email or web address] 06/17/23 Lenny Pendleton MD [address] [place] [address] [address] [place] [address] [email or web address] 06/17/23 documented as of this encounter Additional Source Comments The information contained in this document represents components of the legal health record. It is not the complete legal health record.[facility]
[2025-03-08 12:44] LABS: Hematocrit 38.8 % (42.0-52.0); Hemoglobin 12.4 g/dl (14.0-18.0); Mean Corpuscular HGB Conc 32.0 g/dl (31.0-36.0); Mean Corpuscular Hemoglobin 28.4 pg (27.0-33.0); Mean Corpuscular Volume 89.0 fL (80.0-98.0); NRBC Abs Auto 0.000 X10*3/uL (0.0-0.012); NRBC Pct Auto 0.0 /100WBC (0.0-0.2); Platelet Count 278 X10*3/uL (160-400); Red Blood Count 4.36 X10*6/uL (4.60-5.80); White Blood Count 9.2 X10*3/uL (4.8-10.8)
[2025-03-08 13:21] LABS: Alanine Aminotransferase 56 U/L (0-40); Albumin Level 3.8 g/dL (3.5-5.0); Alkaline Phosphatase 111 U/L (39-117); Anion Gap 11 (12-20); Aspartate Amino Transferase 23 U/L (5-37); Blood Urea Nitrogen 29 mg/dL (9-16); Calcium 8.5 mg/dL (8.4-10.2); Carbon Dioxide 28 mmol/L (22-29); Chloride 107 mmol/L (96-108); Estimated Glomerular Filt Rate > 60; Potassium 4.3 mmol/L (3.3-5.1); Sodium 142 mmol/L (135-145); Total Protein 6.2 g/dL (6.5-8.0)
[2025-03-08 13:32] LABS: Digoxin 1.3 ng/mL (0.8-2.0)
--- OUTSIDE RECORDS SUMMARY | 2025-03-08 14:41 | XMS_ITS | Encounter Summary ---
Author Organization [facility] Address [address] [place] [address] Phone Care Team Providers Care Cloth Spreader Screen Printing Name Role Phone Khadra Romo MD Primary Care Provider [phone] John Chopra MD Unavailable [phone] Lenny Pendleton MD Unavailable Encounter Details Date Type Department Care Team (Late st Contact Info) Description 03/01/2025 Procedure Pass [facility]oscopy Admitting Dept Virtual Department [address] [place], [place] [phone] Social History Tobacco Use Types Packs/Day Years [...] Info) Description 03/09/2025 1:00 AM EST Appointment [facility] [address] [place] [phone] Yuliana Givens RN [address] [place] [address] [email or web address] 03/13/2025 Appointment [facility] [address] [place], [place] [phone] Yuliana Givens RN [address] [place] [address] 03/15/2025 3:00 PM EST Office Visit [facility] Department of Neurology [address] [place] [address], 8th Floor, [address] [place] [address] Luanne Rodríguez MD 55 [facility] [address] [place] [address] [email or web address] 03/16/2025 2:00 AM EST Appointment [facility] [address] [place], [place] [phone] Yuliana Givens RN [address] [place] [address] [email or web address] 04/10/2025 11:00 AM EST Office Visit [facility] Neurology Neuromuscular [address], [address] [place] [address] Lenny Pendleton MD [address] [facility] [address] [place] [address] [email or web address] 04/28/2025 1:00 AM EST Appointment [facility] [address] [place], [place] [phone] Yuliana Givens RN [address] [place] [address] 06/09/2025 1:00 PM EST Office Visit [facility] Department of Neurology [address] [facility], 8th Floor, [address] [place] [address] John Chopra MD [address] [place] [phone] [email or web address] 07/21/2025 8:40 AM EDT Office Visit [facility] [place] [facility] [address] [facility] [address] [place] [address] Khadra Romo MD [address] [place] [address] [address] [place] [address] 08/25/2025 11:00 AM EDT Office Visit [facility] Cardiology [facility] [address] [facility], [address] [place] [address] Clementine Brower MD [address] [facility], [address] [place] [phone] [email or web address] documented as of this encounter Visit Diagnoses Not on filedocumented in this encounter Additional Health Concerns Assessment Noted Time PHQ-9 Depression Total Score: 12 024 3:46 PM EST PHQ-2 Depression Total Score: 1 06/28/19 25 2:08 PM EST documented as of this encounter Care Teams Cloth Spreader Screen Printing Relationship Specialty Start Date End Date Khadra Romo MD [address] [place] [address] [address] [place] [address] [email or web address] PCP - General Family Medicine 06/12/21 John Chopra MD [address] [place] [phone] [email or web address] [email or web address] 06/17/23 Lenny Pendleton MD [address] [place] [address] [address] [place] [address] [email or web address] 06/17/23 documented as of this encounter Additional Source Comments The information contained in this document represents components of the legal health record. It is not the complete legal health record.[facility]
--- OUTSIDE RECORDS SUMMARY | 2025-03-08 14:41 | XMS_ITS | Encounter Summary ---
Author Organization [facility] Address [address] [place] [address] Phone Care Team Providers Care Investor Relations Coordinator Name Role Phone Khadra Romo MD Primary Care Provider [phone] John Chopra MD Unavailable [phone] Lenny Pendleton MD Unavailable Reason for Visit * Auth/Cert (Routine) Specialty Diagnoses / Procedures Referred By Contdigna t Referred To Contact Diagnoses Screen for colon cancer Screen for colon cancer [Z12.11] Procedures ND COLONOSCOPY FLX DX W/COLLJ SPEC WHEN PFRMD ND COLONOSCOPY W/BIOPSY SINGLE/MULTIPLE ND COLSC FLX W/RMVL OF TUMOR POLYP LESION SNARE TQ COLONOSCOPY Referral ID Status Reason Start Date Expiration Date Visits Re quested Visits Authorized [id number] 1 1 Encounter Details Date Type Department Care Team (Late st Contact Info) Description 03/01/2025 Hospital Encounter [facility] Endoscopy Admitting Dept Virtual Department [address] [place] [address] Shai Ayon MD [address] [place] [address] [id number] Social History Tobacco Use Types Packs/Day Years [...] Description 03/09/2025 1:00 AM EST Appointment [facility] [address] [place] [address] Yuliana Givens RN [address] [place] [address] 03/13/2025 Appointment [facility] [address] [place] [address] Yuliana Givens RN [address] [place] [address] 03/15/2025 3:00 PM EST Office Visit [facility] Department of Neurology [address] [place] [address], 8th Floor, [address] [place] [address] Luanne Rodríguez MD [address] [place] [address] [email or web address] 03/16/2025 2:00 AM EST Appointment [facility] [address] [place] [address] Yuliana Givens RN [address] [place] [address] 04/10/2025 11:00 AM EST Office Visit [facility] Neurology Neuromuscular [place] [address] [facility], [address] [place] [address] Lenny Pendleton MD [address] [facility] [address] [place] [address] [email or web address] 04/28/2025 1:00 AM EST Appointment [facility] [address] [place] [phone] Yuliana Givens RN [address] [place] [address] 06/09/2025 1:00 PM EST Office Visit [facility] Department of Neurology [address] [facility], 8th Floor, [address] [place] [address] John Chopra MD 55 [facility] 835 [place] [phone] [email or web address] 07/21/2025 8:40 AM EDT Office Visit [facility] [place] [facility] [address] [facility] [address] [place] [address] Khadra Romo MD 15 [facility] Sonny. 201 [place] [address] 08/25/2025 11:00 AM EDT Office Visit [facility] Cardiology [facility] [address] [facility], [address] [place] [address] Clementine Brower MD [address] [facility], [address] [place] [phone] [email or web address] documented as of this encounter Visit Diagnoses Not on filedocumented in this encounter Additional Health Concerns Assessment Noted Time PHQ-9 Depression Total Score: 12 024 3:46 PM EST PHQ-2 Depression Total Score: 1 06/28/19 25 2:08 PM EST documented as of this encounter Care Teams Investor Relations Coordinator Relationship Specialty Start Date End Date Khadra Romo MD 15 [facility] [address] [place] [address] [email or web address] PCP - General Family Medicine 06/12/21 John Chopra MD [address] [place] [address] 835 [place] [phone] [email or web address] 06/17/23 Rai Pendleton-Alonzo Zelaya MD 165 [facility] 820 [place] [address] [email or web address] [email or web address] 06/17/23 documented as of this encounter Additional Source Comments The information contained in this document represents components of the legal health record. It is not the complete legal health record.[facility]
--- OUTSIDE RECORDS SUMMARY | 2025-03-08 14:41 | XMS_ITS | Encounter Summary ---
Author Organization [facility] Address [address] [place] [address] Phone Care Team Providers Care Editor Managing Director Name Role Phone Khadra Romo MD Primary Care Provider [phone] John Chopra MD Unavailable [phone] Lenny Pendleton MD Unavailable Encounter Details Date Type Department Care Team (Late st Contact Info) Description 03/03/2025 Plan of Care Documentation [facility] [address] [place] [address] Social History Tobacco Use Types Packs/Day Years [...] Upcoming Encounters Date Type Department Care Team (Janusz herrera Contact Info) Description 03/09/2025 1:00 AM EST Appointment [facility] [address] [place] [address] Yuliana Givens RN [address] [place] [address] [email or web address] 03/13/2025 Appointment [facility] [address] [place], [place] [phone] Yuliana Givens RN [address] [place] [address] 03/15/2025 3:00 PM EST Office Visit [facility] Department of Neurology [address] [place] [address], 8th Floor, [address] [place] [address] Luanne Rodríguez MD 55 [facility] 720 [place] [address] [email or web address] 03/16/2025 2:00 AM EST Appointment [facility] [address] [place], [place] [phone] Yuliana Givens RN [address] [place] [address] [email or web address] 04/10/2025 11:00 AM EST Office Visit [facility] Neurology Neuromuscular [address], [address] [place] [address] Lenny Pendleton MD [address] [facility] [address] [place] [address] [email or web address] 04/28/2025 1:00 AM EST Appointment [facility] [address] [place], [place] [phone] Yuliana Givens RN [address] [place] [address] 06/09/2025 1:00 PM EST Office Visit [facility] Department of Neurology [address] [facility], 8th Floor, [address] [place] [address] John Chopra MD [address] [place] [address] 835 [place] [address] [email or web address] 07/21/2025 8:40 AM EDT Office Visit [facility] [place] [facility] [address] [facility] [address] [place] [address] Khadra Romo MD [address] [place] [address] 08/25/2025 11:00 AM EDT Office Visit [facility] Cardiology [facility] [address] [facility], [address] [place] [address] Clementine Brower MD 40 [facility], [address] [place] [address] [email or web address] documented as of this encounter Visit Diagnoses Not on filedocumented in this encounter Additional Health Concerns Assessment Noted Time PHQ-9 Depression Total Score: 12 06/17/ 024 3:46 PM EST PHQ-2 Depression Total Score: 1 06/28/19 25 2:08 PM EST documented as of this encounter Care Teams Editor Managing Director Relationship Specialty Start Date End Date Khadra Romo MD [address] [place] [address] [email or web address] PCP - General Family Medicine 06/12/21 John Chopra MD [address] [place] [address] 835 [place] [phone] [email or web address] Neurology 06/17/23 Lenny Pendleton MD [address] [place] [address] 820 [place] [address] [email or web address] Neurology 06/17/23 documented as of this encounter Additional Source Comments The information contained in this document represents components of the legal health record. It is not the complete legal health record.[facility]
--- OUTSIDE RECORDS SUMMARY | 2025-03-08 14:41 | XMS_ITS | Encounter Summary ---
Author Organization [facility] Address [address] [facility] [address] [place] [address] Phone Care Team Providers Care Regional Psychiatric Director Name Role Phone Khadra Romo MD Primary Care Provider [phone] John Chopra MD Unavailable [phone] Lenny Pendleton MD Unavailable Reason for Visit * Reason Onset Date Comments Medication Refill 03/01/2025 Pt did not say which med on VM Encounter Details Date Type Department Care Team (Late st Contact Info) Description 03/01/2025 Telephone [facility] [address] [facility] [address] [place] [address] Khadra Romo MD 15 [facility] [address]ny[address] [place] [address] [email or web address] Medication Refill (Pt did not say which med on VM) Social History Tobacco Use Types Packs/Day Years [...] as of this encounter Progress Notes * Debra Boogie - 03/01/2025 3:20 PM EDT Pt was asked to verify what Rx's they are on. They LVM to give that information. Informed him that I would pass this along to the nurses and if they needed anything they would call back documented in this encounter Plan of Treatment Upcoming Encounters Date Type Department Care Team (Late st Contact Info) Description 03/09/2025 1:00 AM EST Appointment [facility] [address] [place] [address] Yuliana Givens RN [address] [place] [address] 03/13/2025 Appointment [facility] 30 [place] [phone] Yuliana Givens RN [address] [place] [address] 03/15/2025 3:00 PM EST Office Visit [facility] Department of Neurology [address] [place] [address], 8th Floor, [address] [place] [address] Luanne Rodríguez MD [address] [place] [address] 720 [place] [address] [email or web address]. [facility] 03/16/2025 2:00 AM EST Appointment [facility] 30 [place], [place] [phone] Yuliana Gviens RN 168 [place] [address] 04/10/2025 11:00 AM EST Office Visit [facility] Neurology Neuromuscular [place] [address] [facility], [address] [place] [address] Lenny Pendleton MD 165 [facility] [address] [place] [address] [email or web address] 04/28/2025 1:00 AM EST Appointment [facility] 30 [place], [place] [phone] Yluiana Givens RN 168 [place] [address] 06/09/2025 1:00 PM EST Office Visit [facility] Department of Neurology [address] [facility], 8th Floor, [address] [place] [address] John Chopra MD [address] [facility] [address] [place] [phone] [email or web address] 07/21/2025 8:40 AM EDT Office Visit [facility] [place] [facility] [address] [facility] [address] [place] [address] Khadra Romo MD 15 [facility] [address]ny. [address] [place] [address] 08/25/2025 11:00 AM EDT Office Visit [facility] [address] [facility], [address] [place] [address] Clementine Brower MD [address] [place] [address] [email or web address] documented as of this encounter Visit Diagnoses Not on filedocumented in this encounter Additional Health Concerns Assessment Noted Time PHQ-9 Depression Total Score: 12 024 3:46 PM EST PHQ-2 Depression Total Score: 1 06/28/19 25 2:08 PM EST documented as of this encounter Care Teams Regional Psychiatric Director Relationship Specialty Start Date End Date Khadra Romo MD 15 [facility] [address] [place] [address] [email or web address] PCP - General Family Medicine 06/12/21 John Chopra MD [address] [facility] 835 [place] [phone] [email or web address] Neurology 06/17/23 Rai Pendleton-Alonzo Zelaya MD 165 [facility] 820 [place] [address] [email or web address] Neurology 06/17/23 documented as of this encounter Additional Source Comments The information contained in this document represents components of the legal health record. It is not the complete legal health record.[facility]
--- OUTSIDE RECORDS SUMMARY | 2025-03-08 14:41 | XMS_ITS | Encounter Summary ---
Author Organization [facility] Address [address] [place] [address] Phone Care Team Providers Care Avionics Systems Engineer Name Role Phone Khadra Romo MD Primary Care Provider [phone] John Chopra MD Unavailable [phone] Lenny Pendleton MD Unavailable Encounter Details Date Type Department Care Team (Late st Contact Info) Description 02/03/2025 Orders Only [facility] Family Medicine [address] [place] [address] [place] [address] Provider, MD [place] [address] Social History Tobacco Use Types Packs/Day [...] Appointment [facility] [address] [place], [place] [phone] Yuliana Givens RN 168 [place] [address] 03/13/2025 Appointment [facility] [address] [place], [place] [phone] Yuliana Givens RN 168 [place] [address] 03/15/2025 3:00 PM EST Office Visit [facility] Department of Neurology [address] [place] [address], 8th Floor, [address] [place] [address] Luanne Rodríguez MD [facility] [address] [place] [address] [email or web address] 03/16/2025 2:00 AM EST Appointment [facility] [address] [place] [address] Yuliana Givens RN 168 [place] [address] 04/10/2025 11:00 AM EST Office Visit [facility] Neurology Neuromuscular [address], [address] [place] [address] Lenny Pendleton MD [address] [facility] [address] [place] [address] [email or web address] 04/28/2025 1:00 AM EST Appointment [facility] [address] [place], [place] [phone] Yuliana Givens RN 168 [place] [address] 06/09/2025 1:00 PM EST Office Visit [facility] Department of Neurology [address] [facility], 8th Floor, [address] [place] [address] John Chopra MD 55 [facility] 835 [place] [phone] [email or web address] 07/21/2025 8:40 AM EDT Office Visit [facility] [place] [facility] [address] [facility] [address] [place] [address] Khadra Romo MD 15 [facility] [address]ny[address] [place] [address] [email or web address] 08/25/2025 11:00 AM EDT Office Visit [facility] Cardiology [facility] [address] [facility], [address] [place] [address] Clementine Brower MD 40 [facility], [address] [place] [phone] [email or web address] documented as of this encounter Procedures Procedure Name Priority Date/Time Associated Diagnosis Comments OUTSIDE IMAGING Routine 02/02/2025 10:18 AM EDT documented in this encounter Results * Outside Imaging Report Only (02/02/2025 10:18 AM EDT) us Historical Provider IMYifan XR CHEST Final Res ult documented in this encounter Visit Diagnoses Not on filedocumented in this encounter Additional Health Concerns Assessment Noted Time PHQ-9 Depression Total Score: 12 06/17/ 024 3:46 PM EST PHQ-2 Depression Total Score: 1 06/28/19 25 2:08 PM EST documented as of this encounter Care Teams Avionics Systems Engineer Relationship Specialty Start Date End Date Khadra Romo MD 15 [facility] 201 [place] [address] [email or web address] PCP - General Family Medicine 06/12/21 John Chopra MD 55 [facility] [address] [place] [phone] [email or web address] Neurology 06/17/23 Rai Pendleton-Alonzo Zelaya MD 165 [facility] 820 [place] [address] [email or web address] Neurology 06/17/23 documented as of this encounter Additional Source Comments The information contained in this document represents components of the legal health record. It is not the complete legal health record.[facility]
--- OUTSIDE RECORDS SUMMARY | 2025-03-08 14:41 | XMS_ITS | Encounter Summary ---
Author Organization [facility] Address [address] [place] [address] Phone Care Team Providers Care Garnett Room Worker Name Role Phone Khadra Romo MD Primary Care Provider [phone] John Chopra MD Unavailable [phone] Lenny Pendleton MD Unavailable Encounter Details Date Type Department Care Team (Late st Contact Info) Description 02/10/2025 Orders Only [facility] [place] [facility] [address] [place] [address] [place] [address] Provider, MD [place] [facility] [place] [address] Social History Tobacco Use Types [...] Appointment [facility] 30 [place], [place] [phone] Yuliana Givens RN 168 [place] [address] 03/13/2025 Appointment [facility] 30 [place], [place] [phone] Yuliana Givens RN 168 [place] [address] 03/15/2025 3:00 PM EST Office Visit [facility] Department of Neurology [address] [place] [address], 8th Floor, [address] [place] [address] Luanne Rodríguez MD 55 [facility] 720 [place] [address] [email or web address] 03/16/2025 2:00 AM EST Appointment [facility] [address] [place] [address] Yuliana Givens RN 168 [place] [address] 04/10/2025 11:00 AM EST Office Visit [facility] Neurology Neuromuscular [address], [address] [place] [address] Lenny Pendleton MD 165 [facility] [address] [place] [address] [email or web address] 04/28/2025 1:00 AM EST Appointment [facility] 30 [place], [place] [phone] Yuliana Givens RN [address] [place] [address] 06/09/2025 1:00 PM EST Office Visit [facility] Department of Neurology [address] [facility], 8th Floor, [address] [place] [address] John Chopra MD 55 [facility] 835 [place] [phone] [email or web address] 07/21/2025 8:40 AM EDT Office Visit [facility] [place] [facility] [address] [facility] [address] [place] [address] Khadra Romo MD 15 [facility] [address] [place] [address] [email or web address] 08/25/2025 11:00 AM EDT Office Visit [facility] Cardiology [facility] [address] [facility], [address] [place] [address] Clementine Brower MD 40 [facility], [address] [place] [phone] [email or web address] documented as of this encounter Procedures Procedure Name Priority Date/Time Associated Diagnosis Comments OUTSIDE IMAGING Routine 02/09/2025 10:51 AM EDT documented in this encounter Results * Outside Imaging Report Only (02/09/2025 10:51 AM EDT) us Historical Provider IMYifan XR CHEST Final Res ult documented in this encounter Visit Diagnoses Not on filedocumented in this encounter Additional Health Concerns Assessment Noted Time PHQ-9 Depression Total Score: 12 06/17/ 024 3:46 PM EST PHQ-2 Depression Total Score: 1 06/28/19 25 2:08 PM EST documented as of this encounter Care Teams Garnett Room Worker Relationship Specialty Start Date End Date Khadra Romo MD 15 [facility] 201 [place] [address] [email or web address] PCP - General Family Medicine 06/12/21 John Chopra MD 55 [facility] [address] [place] [phone] [email or web address] Neurology 06/17/23 Rai Pendleton-Alonzo Zelaya MD 165 [facility] [address] [place] [address] [email or web address] [email or web address] 06/17/23 documented as of this encounter Additional Source Comments The information contained in this document represents components of the legal health record. It is not the complete legal health record.[facility]
--- OUTSIDE RECORDS SUMMARY | 2025-03-08 14:41 | XMS_ITS | Encounter Summary ---
Author Organization [facility] Address [address] [facility] [address] [place] [address] Phone Care Team Providers Care Winchman/Crane Operator Name Role Phone Khadra Romo MD Primary Care Provider [phone] John Chopra MD Unavailable [phone] Lenny [place] MD Unavailable Reason for Visit * Auth/Cert (Routine) Specialty Diagnoses / Procedures Referred By Senthil t Referred To Contact Referral ID Status Reason Start Date Expiration Date Visits Re quested Visits Authorized [id number] 1 1 Encounter Details Date Type Department Care Team (Late st Contact Info) Description 03/06/2025 Home Care Visit [facility] [address] [place] [phone] Daija Lechuga, OT [address] [place] [address] [email or web address] TELEPHONE ENCOUNTER Social History Tobacco Use Types Packs/Day Years [...] Appointment [facility] [address] [place], [place] [phone] Yuliana Givens RN [address] [place] [address] 03/13/2025 Appointment [facility] [address] [place], [place] [phone] Yuliana Givens RN [address] [place] [address] 03/15/2025 3:00 PM EST Office Visit [facility] Department of Neurology [address] [facility], 8th Floor, [address] [place] [address] Luanne Rodríguez MD 55 [facility] 720 [place] [address] [email or web address] 03/16/2025 2:00 AM EST Appointment [facility] [address] [place], [place] [phone] Yuliana Givens RN [address] [place] [address] 04/10/2025 11:00 AM EST Office Visit [facility] Neurology Neuromuscular [address], [address] [place] [address] Lenny [place] MD 165 [facility] [address] [place] [address] [email or web address] 04/28/2025 1:00 AM EST Appointment [facility] [address] [place] [phone] Yuliana Givens RN 168 [place] [address] 06/09/2025 1:00 PM EST Office Visit [facility] Department of Neurology [address] [facility], 8th Floor, [address] [place] [address] John Chopra MD 55 [facility] 835 [place] [phone] [email or web address] 07/21/2025 8:40 AM EDT Office Visit [facility] 15 [facility] [address] [place] [address] Khadra Romo MD [address] [place] [address] [email or web address] 08/25/2025 11:00 AM EDT Office Visit [facility] Cardiology [facility] 52 [facility], [address] [place] [address] Clementine Brower MD 40 [facility], [address] [place] [address] [email or web address] documented as of this encounter Visit Diagnoses Not on filedocumented in this encounter Additional Health Concerns Assessment Noted Time PHQ-9 Depression Total Score: 12 06/17/ 024 3:46 PM EST PHQ-2 Depression Total Score: 1 06/28/19 25 2:08 PM EST documented as of this encounter Care Teams Winchman/Crane Operator Relationship Specialty Start Date End Date Khadra Romo MD 15 [facility] [address] [place] [address] [email or web address] PCP - General Family Medicine 06/12/21 John Chopra MD 55 [facility] [address] [place] [phone] [email or web address] Neurology 06/17/23 Rai [place]-Alonzo Zelaya MD [address] [place] [address] 820 [place] [address] [email or web address] [email or web address] 06/17/23 documented as of this encounter Additional Source Comments The information contained in this document represents components of the legal health record. It is not the complete legal health record.[facility]
--- OUTSIDE RECORDS SUMMARY | 2025-03-08 14:42 | XMS_ITS | Encounter Summary ---
Author Organization [facility] Address [address] [place] [address] Phone Care Team Providers Care Straw Hat Brim Cutter Operator Name Role Phone Khadra Romo MD Primary Care Provider [phone] John Chopra MD Unavailable [phone] Lenny [place] MD Unavailable Encounter Details Date Type Department Care Team (Late st Contact Info) Description 01/06/2024 Procedure Pass [facility], Ct Scan - [address] [address] Social History Tobacco Use Types Packs/Day Years [...] high school, GED, job training, learning the Telugu language, technical skills, or developing parenting skills)? [...] Encounters Date Type Department Care Team (Janusz st Contact Info) Description 03/09/2025 1:00 AM EST Appointment [facility] [address] [place] [phone] Yuliana Givens RN [address] [place] [address] 03/13/2025 Appointment [facility] 30 [place], [place] [phone] Yuliana Givens RN [address] [place] [address] 03/15/2025 3:00 PM EST Office Visit [facility] Department of Neurology [address] [place] [address], 8th Floor, [address] [place] [address] Luanne Rodríguez MD [address] [address] [email or web address] 03/16/2025 2:00 AM EST Appointment [facility] 30 [place], [place] [phone] Yuliana Givens RN 168 [place] [address] 04/10/2025 11:00 AM EST Office Visit [facility] Neurology Neuromuscular [address], [address] [place] [address] Lenny [place] MD [address] [place] [address] [address] [place] [address] [email or web address] 04/28/2025 1:00 AM EST Appointment [facility] [place] [facility] 30 [place], [place] [phone] Yuliana Givens RN [address] [place] [address] 06/09/2025 1:00 PM EST Office Visit [facility] Department of Neurology [address] [place] [address], 8th Floor, [address] [place] [address] John Chopra MD [address] [place] [phone] [email or web address] 07/21/2025 8:40 AM EDT Office Visit [facility] 15 [facility] [address] [place] [address] Khadra Romo MD 15 [facility] 201 [place] [address] [email or web address] 08/25/2025 11:00 AM EDT Office Visit [facility] Cardiology [employer] 52 [facility], [address] [place] [address] Clementine Brower MD 40 [facility], [address] [place] [address] [email or web address] documented as of this encounter Visit Diagnoses Not on filedocumented in this encounter Additional Health Concerns Assessment Noted Time PHQ-9 Depression Total Score: 12 024 3:46 PM EST PHQ-2 Depression Total Score: 4 06/23/19 24 11:49 PM EST documented as of this encounter Care Teams Straw Hat Brim Cutter Operator Relationship Specialty Start Date End Date Khadra Romo MD 15 [facility] 201 [place] [address] [email or web address] PCP - General Family Medicine 06/12/21 John Chopra MD [address] [place] [phone] [email or web address] Neurology 06/17/23 Lenny [place] MD 165 [facility] 820 [place] [address] [email or web address] [email or web address] 06/17/23 documented as of this encounter Additional Source Comments The information contained in this document represents components of the legal health record. It is not the complete legal health record.[facility]
--- OUTSIDE RECORDS SUMMARY | 2025-03-08 14:42 | XMS_ITS | Encounter Summary ---
Author Organization [facility] Address [address] [place] [address] Phone Care Team Providers Care Die Presser Name Role Phone Khadra Romo MD Primary Care Provider [phone] John Chopra MD Unavailable [phone] Lenny [place] MD Unavailable Reason for Visit * Reason Onset Date Comments TCM Visit 01/19/2025 Encounter Details Date Type Department Care Team (Late st Contact Info) Description 01/19/2025 Telephone [employer] [facility] [address] [place] [address] [email or web address] TCM Visit Social History Tobacco Use [...] of this encounter Progress Notes * [place], RUBIA - 01/23/2025 3:26 PM EDT Post Discharge Summary: S/W Chilo, he was discharged from [facility] for CVA on 01/19. He is feeling well with no residual effects. Discharged with no services or devices but is advised to follow up with cardiology for pericarditis and neurology for CVA. He has a cardiology appointment but it isn't scheduled until August 2023, he is waiting to hear back from [facility] neurology re: appointment. He had several med changes including starting ASA and colchicine, changing statin, stopping Adderall and ibuprofen for the time being. He wasable to excelsior picker all new medications and has no [...] date: 01/18/25 Discharge date: 01/19/25 Discharge from: [facility] Reason for hospitalization: CVA Discharge disposition: [...] review?: No Was the patient/caregiver able to excelsior picker all new prescriptions?: Yes Does the [...] Management New Patient: YES/NO: no Hospitalization Name: [facility] Discharge Date: 01/19/25 Reason for Visit+ [...] from discharge date Additional Note (if applicable): [facility] Call Center CSS Agent (Please do not reply to this user, as this inbox is not monitored. Thank you.) Thank you. documented in this encounter Plan of Treatment Upcoming Encounters Date Type Department Care Team (Late st Contact Info) Description 03/09/2025 1:00 AM EST Appointment [facility] [address] [place] [phone] Yuliana Givens RN [address] [place] [address] 03/13/2025 Appointment [facility] [address] [place] [phone] Yuliana Givens RN [address] [place] [address] 03/15/2025 3:00 PM EST Office Visit [facility] Department of Neurology [address] [place] [address], 8th Floor, [address] [place] [address] Luanne Rodríguez MD [address] [place] [address] [address] [place] [address] [email or web address] 03/16/2025 2:00 AM EST Appointment [facility] [address] [place] [phone] Yuliana Givens RN [address] [place] [address] 04/10/2025 11:00 AM EST Office Visit [facility] Neurology Neuromuscular [place] [address] [facility], [address] [place] [address] Lenny [place] MD 165 [facility] [address] [place] [address] [email or web address] 04/28/2025 1:00 AM EST Appointment [facility] [address] [place] [phone] Yuliana Givens RN [address] [place] [address] 06/09/2025 1:00 PM EST Office Visit [facility] Department of Neurology [address] [place] [address], 8th Floor, [address] [place] [address] John Chopra MD 55 [facility] 835 [place] [phone] [email or web address] 07/21/2025 8:40 AM EDT Office Visit [facility] [place] [facility] 15 [facility] [address] [place] [address] Khadra Romo MD 15 [facility]. 201 [place] [address] 08/25/2025 11:00 AM EDT Office Visit [facility] Cardiology [facility] 52 [facility], [address] [place] [address] Clementine Brower MD 40 [facility], [address] [place] [phone] [email or web address] documented as of this encounter Visit Diagnoses Not on filedocumented in this encounter Additional Health Concerns Assessment Noted Time PHQ-9 Depression Total Score: 12 024 3:46 PM EST PHQ-2 Depression Total Score: 1 06/28/19 25 2:08 PM EST documented as of this encounter Care Teams Die Presser Relationship Specialty Start Date End Date Khadra Romo MD 15 [facility] [address] [place] [address] [email or web address] PCP - General Family Medicine 06/12/21 John Chopra MD 55 [facility] 835 [place] [phone] [email or web address] Neurology 06/17/23 Rai [place]-Alonzo Zelaya MD 165 [facility] [address] [place] [address] [email or web address] Neurology 06/17/23 documented as of this encounter Additional Source Comments The information contained in this document represents components of the legal health record. It is not the complete legal health record.[facility]
--- OUTSIDE RECORDS SUMMARY | 2025-03-08 14:42 | XMS_ITS | Encounter Summary ---
Author Organization [facility] Address [address] [facility] [address] [place] [address] Phone Care Team Providers Care Child Care Leader Name Role Phone Khadra Romo MD Primary Care Provider [phone] John Chopra MD Unavailable [phone] Lenny [place] MD Unavailable Encounter Details Date Type Department Care Team (Late st Contact Info) Description 01/21/2024 Transcribe Orders [facility] Specimen Processing 30 [place] [address] Khadra Romo MD [address] [facility]. [address] [place] [address] [email or web address] Social History Tobacco Use Types Packs/Day Years [...] high school, GED, job training, learning the Sami language, technical skills, or developing parenting skills)? [...] Description 03/09/2025 1:00 AM EST Appointment [facility] [address] [place] [phone] Yuliana Givens RN [address] [place] [address] [email or web address] 03/13/2025 Appointment [facility] [address] [place], [place] [phone] Yuliana Givens RN [address] [place] [address] 03/15/2025 3:00 PM EST Office Visit [facility] Department of Neurology [address] [place] [address], 8th Floor, [address] [place] [address] Luanne Rodríguez MD 55 [facility] 720 [place] [address] [email or web address] 03/16/2025 2:00 AM EST Appointment [facility] [address] [place], [place] [phone] Yuliana Givens RN [address] [place] [address] [email or web address] 04/10/2025 11:00 AM EST Office Visit [facility] Neurology [address], [address] [place] [address] Lenny [place] MD 165 [facility] [address] [place] [address] [email or web address] 04/28/2025 1:00 AM EST Appointment [facility] [address] [place], [place] [phone] Yuliana Givens RN [address] [place] [address] 06/09/2025 1:00 PM EST Office Visit [facility] Department of Neurology 55 [facility], 8th Floor, [address] [place] [address] John Chopra MD [address] [place] [address] 835 [place] [phone] [email or web address] 07/21/2025 8:40 AM EDT Office Visit [facility] [place] [facility] 15 [facility] 201 [place] [address] Khadra Romo MD [address] [place] [address] 08/25/2025 11:00 AM EDT Office Visit [facility] Cardiology [facility] 52 [facility], [address] [place] [address] Clementine Brower MD 40 [facility], [address] [place] [phone] [email or web address] documented as of this encounter Visit Diagnoses Not on filedocumented in this encounter Additional Health Concerns Assessment Noted Time PHQ-9 Depression Total Score: 12 024 3:46 PM EST PHQ-2 Depression Total Score: 4 06/23/19 24 11:49 PM EST documented as of this encounter Care Teams Child Care Leader Relationship Specialty Start Date End Date Khadra Romo MD [address] [place] [address] 201 [place] [address] PCP - General Family Medicine 06/12/21 John Chopra MD [address] [place] [address] 835 [place] [phone] [email or web address] Neurology 06/17/23 Lenny [place] MD [address] [place] [address] 820 [place] [address] [email or web address] Neurology 06/17/23 documented as of this encounter Additional Source Comments The information contained in this document represents components of the legal health record. It is not the complete legal health record.[facility]
--- OUTSIDE RECORDS SUMMARY | 2025-03-08 14:42 | XMS_ITS | Encounter Summary ---
Author Organization [facility] Address [address] [place] [address] Phone Care Team Providers Care Wireline Supervisor Name Role Phone Khadra Romo MD Primary Care Provider [phone] John Chopra MD Unavailable [phone] Lenny [place] MD Unavailable Encounter Details Date Type Department Care Team (Late st Contact Info) Description 05/27/2024 Procedure Pass [facility]IVE [facility]PT 55 [place] [address] Social History Tobacco Use Types Packs/Day Years [...] housing situation today? I have moise zhao 05/28/2024 How many times have you [...] 1:00 PM EST Vonnie Blackmon RN * [place] Suicide Severity Rating Scale (Screener/Recent Self-Report) Question Answer Date of Assessment Author 1. Wish to be (Past 1 Month) No 05/27/2024 1:00 PM EST Vonnie Blackmon RN 2. Non-Specific Active Suici osman Thoughts (Past 1 Month) No 05/27/2024 1:00 PM EST Jo Blackmon RN 6. Suicidal Behavior (Lifetime) No 1:00 PM EST Vonnie Blackmon RN documented as of this encounter Plan of Treatment Upcoming Encounters Date Type Department Care Team (Late st Contact Info) Description 03/09/2025 1:00 AM EST Appointment [facility] [address] [place] [phone] Yuliana Givens RN 168 [place] [address] 03/13/2025 Appointment [facility] [address] [place] [address] Yuliana Givens RN 168 [place] [address] 03/15/2025 3:00 PM EST Office Visit [facility] Department of Neurology [address] [place] [address], 8th Floor, [address] [place] [address] Luanne Rodríguez MD [address] [place] [address] 720 [place] [address] [email or web address] 03/16/2025 2:00 AM EST Appointment [facility] [address] [place] [address] Yuliana Givens RN 168 [place] [address] 04/10/2025 11:00 AM EST Office Visit [facility] Neurology Neuromuscular [place] [address] [facility], [address] [place] [address] Lenny [place] MD 165 [facility] [address] [place] [address] [email or web address] 04/28/2025 1:00 AM EST Appointment [facility] 30 [place] [phone] Yuliana Givens RN 168 [place] [address] 06/09/2025 1:00 PM EST Office Visit [facility] Department of Neurology [address] [place] [address], 8th Floor, [address] [place] [address] John Chopra MD 55 [facility] 835 [place] [phone] [email or web address] 07/21/2025 8:40 AM EDT Office Visit [facility] [place] [facility] 15 [facility] [address] [place] [address] Khadra Romo MD 15 [facility]. 201 [place] [address] 08/25/2025 11:00 AM EDT Office Visit [facility] Cardiology [facility] [address] [facility], [address] [place] [address] Clementine Brower MD 40 [facility], [address] [place] [phone] [email or web address] documented as of this encounter Visit Diagnoses Not on filedocumented in this encounter Additional Health Concerns Assessment Noted Time PHQ-9 Depression Total Score: 12 024 3:46 PM EST PHQ-2 Depression Total Score: 4 06/23/19 24 11:49 PM EST documented as of this encounter Care Teams Wireline Supervisor Relationship Specialty Start Date End Date Khadra Romo MD 15 [facility] [address] [place] [address] [email or web address] PCP - General Family Medicine 06/12/21 John Chopra MD 55 [facility] 835 [place] [phone] [email or web address] Neurology 06/17/23 Rai [place]-Alonzo Zelaya MD 165 [facility] 820 [place] [address] [email or web address] [email or web address] 06/17/23 documented as of this encounter Additional Source Comments The information contained in this document represents components of the legal health record. It is not the complete legal health record.[facility]
--- OUTSIDE RECORDS SUMMARY | 2025-03-08 14:42 | XMS_ITS | Clinical Summary ---
Author Organization [facility] Address [address] [facility] [address] [place] [phone] Phone Care Team Providers Care Thickener Operator Name Role Phone Khadra Romo MD Primary Care Provider John Chopra MD Unavailable [phone] Lenny Pendleton MD Unavailable Allergies No known active allergies Medications lamoTRIgine (LAMICTAL) 200 MG IMMEDIATE release tablet Take 200 mg by mouth. 300 mg in the morning and 200 mg bedtime 5 Active rOPINIRole (REQUIP) 2 MG tablet Take 1 tablet (2 mg total) by mouth nightly at bedtime. 90 tablet 1 5 07/20/19 26 Active colchicine (COLCRYS) 0.6 mg tablet Take 1 tablet by mouth every morning. 5 Active atorvastatin (LIPITOR) 80 MG tablet Take 80 mg by mouth nightly at bedtime. 5 Active omeprazole (PRILOSEC) 40 MG capsule Take 40 mg by mouth daily. 5 Active apixaban (ELIQUIS) 5 mg tablet Take 5 mg by mouth 2 (two) times a day. Active digoxin (LANOXIN) 250 mcg (0.25 mg) tablet Take 250 mcg by mouth daily. Hold for HR <60 5 Active metoprolol tartrate (LOPRESSOR) 25 MG tablet Take 12.5 mg by mouth 2 (two) times a day. Active predniSONE (DELTASONE) 20 MG tablet Take 40 mg by mouth daily. 40mg daily x 7 days then 20mg daily x 7 days Active lamoTRIgine (LAMICTAL) 100 MG IMMEDIATE release tablet Take 100 mg by mouth daily. Active sildenafiL (VIAGRA) 100 mg tablet Take 1 tablet (100 mg total) by mouth daily as needed. 30 tablet 2 4 03/03/20 Discontinu ed(No longer taking) dextroamphetamine -amphetamine (ADDERALL) 20 mg Tab tablet Take 1 tablet by mouth 2 (two) times a day. 02/11/20 Discontinu ed(No CancelRX) melatonin [address] 1 tablet (5 mg total) under the tongue nightly at bedtime as needed (insomnia). 90 tablet 1 5 03/03/20 Discontinu ed(No longer taking) therapeutic multivitamin tablet Take 1 tablet by mouth daily. 03/03/20 Discontinu ed(No CancelRX) aspirin 81 mg chewable tablet Take 81 mg by mouth daily. 02/11/20 Discontinu ed(No CancelRX) omeprazole (PRILOSEC) 20 MG capsule Take 1 capsule by mouth 2 (two) times a day. 5 03/02/20 Discontinu ed(Other) ibuprofen (ADVIL,MOTRIN) 800 MG tablet Take 800 mg by mouth 3 (three) times a day. 5 03/02/20 Discontinu ed(Stop Taking at Discharge) azithromycin (ZITHROMAX) 250 MG tablet Take 250 mg by mouth daily. 03/02/20 Discontinu ed(Therapy Completed/ No Longer Necessary) doxycycline hyclate (DORYX) 100 MG tablet Take 100 mg by mouth 2 (two) times a day. 5 03/02/20 Discontinu ed(Stop Taking at Discharge) Active Problems Problem Noted Date Diagnosed Date Atrial fibrillation with RVR 02/10/2025 Assessment & Plan (03/03/2025 3:57 PM EDT): Currently on 25 mg of metoprolol and digoxin. Risks and benefits of continuing digoxin discussed; advised to monitor for visual disturbances such as seeing green, indicating digoxin toxicity. - Referral to [facility] for further evaluation and management. - Discussed possibility of ablation procedure to potentially alleviate atrial flutter. Orders: Ambulatory referral to [facility] Cardiology - Employed Practices Assessment & Plan (02/10/2025 3:22 PM EDT): [...] only a temporary condition. - Appointment with java web engineer on 02/20/2025 for further evaluation, including blood work, echocardiogram, and Holter monitor. Discussed that ablation can sometimes obviate the need for rate or rhythm control agents. If blood thinners are not tolerated or safe (in light of his regular falls), a Watchman procedure may be indicated. I encouraged him to speak with his java web engineer about whether these procedures may be appropriate or indicated for him, and explained that the timeline for these would not be quick. Ischemic stroke of frontal lobe 01/27/2025 Overview (01/27/2025): L frontal lobe, presented with R arm weakness, cognitive impairment. Sx resolved w/in few hours Assessment & Plan (03/03/2025 3:57 PM EDT): Deficits from the stroke have happily been rather minimal. Preventing another stroke is of paramount importance. Unless there is new evidence that I am not aware of, my understanding is that statins, while known to cause transaminitis, do not cause actual liver damage. Continuing his statin is very important in preventing another stroke. He may at some point need a workup for his transaminitis to see if there is another secondary cause. I defer to his java web engineer but I do not think this is a magallon course. Assessment & Plan (02/10/2025 3:22 PM EDT): - Referred to stroke clinic at [facility] with appointment on 03/15/2025. - Emphasized importance of managing atrial fibrillation to prevent further cerebrovascular events. - Continuation of Eliquis to prevent another stroke. Assessment & Plan (01/27/2025 2:48 PM EDT): Reports no residual deficits now and had none at time of hospital discharge. Continue baby aspirin, aggressive statin therapy. Referred to neurologist Dr. Jimenes at [facility], whom patient has seen before. Recommend discussing an alert button with his local other services organization Orders: External Referral to Neurology ([facility]) Acute idiopathic pericarditis 01/27/2025 Assessment & Plan (03/03/2025 3:57 PM EDT): Continue colchicine Orders: Ambulatory referral to [facility] Cardiology - Employed Practices Assessment & Plan (01/27/2025 2:48 PM EDT): [...] time. Orthostatic hypotension 09/23/2024 Assessment & Plan (03/03/2025 3:57 PM EDT): Follow-up as scheduled with Dr. Brower Assessment & Plan (01/27/2025 2:48 PM EDT): [...] for him to see Dr. Brower in [place] Cervical myelopathy 05/27/2024 Assessment & Plan (01/12/2025 [...] pending. Neuro Dr Stephens Assessment & Plan (03/03/2025 3:57 PM EDT): There are many reasons for him to feel unsteady on his feet right now but I encouraged him to use a walker whenever he feels that he is not 100%. I suggested he might benefit from a handicap placard which he agrees with. He should fill at the top portion including his signature and send it to me so that I can complete it and send it to the [facility]. I offered him a shower chair as he reports that just taking a shower tiring him out but he declined. I emphasized that I do not want him doing any of the labor of packing up his house prior to moving. Assessment & Plan (01/12/2025 1:21 PM EDT): [...] Problem Noted Date Diagnosed Date Resolved Date Pneumonia of left lower lobe due to infectious organism 02/10/2025 03/03/2025 Assessment & Plan (02/10/2025 3:22 PM EDT): - Prescribed antibiotics to be filled today. - Avoid strenuous activities such as hiking until fully recovered. Advised to expect that full recovery may take several weeks. Effects of high altitude 10/30/2023 Assessment & [...] future, such as a planned trip to [place] that he mentioned, he should make his [...] Encounters Date Type Department Care Team Description 03/06/2025 [facility] [address] [place] [phone] Daija Lechuga, OT TELEPHONE ENCOUNTER 03/03/2025 10:40 AM EDT Office Visit [facility] [address] [place] [address] Khadra Romo MD Atrial fibrillation with RVR (Primary Dx); Acute idiopathic pericarditis; Ischemic stroke of frontal lobe; Orthostatic hypotension; Parkinsonism, unspecified Parkinsonism type 03/03/2025 Plan of Care Documentation [facility] [address] [place] [phone] 03/02/2025 10:30 AM EDT [facility] [address] [place] [phone] Yuliana Givens RN SN OASIS START OF CARE (SOC) 03/01/2025 Telephone [facility] [address] [place] [address] Khadra Romo MD Medication Refill (Pt did not say which med on VM) 03/01/2025 Procedure Pass [facility] Endoscopy Admitting Dept Virtual Department [address] [place] [address] 03/01/2025 Hospital Encounter [facility] Endoscopy Admitting Dept Virtual Department [address] [place] [address] Shai Ayon MD 02/28/2025 Orders Only [facility] [address] [place] [phone] Homehealth, Interface MD Jennifer 02/27/2025 Orders Only [address] [place] [address] Ramona Rodriguez MD 02/23/2025 Telephone [facility] [address] [place] [address] Khadra Romo MD Inpatient Admission 02/20/2025 Telephone [facility] [address] [place] [address] Rogeriogina Hilary Ange cancel procedure 02/20/2025 Orders Only [address] [place] [address] ProviderRamona MD 02/10/2025 10:40 AM EDT Office Visit [facility] [address] [place] [address] Khadra Romo MD Atrial fibrillation with RVR (Primary Dx); Ischemic stroke of frontal lobe; Pneumonia of left lower lobe due to infectious organism 02/10/2025 Orders Only [facility] [address] [place] [address] Ramona Rodriguez MD 02/09/2025 9:47 AM EDT - 02/09/2025 11:59 PM EDT Hospital Encounter [facility] [address] [place] [address] Khadra Romo MD Discharge Disposition: Home or Self Care 02/07/2025 Telephone [facility] [address] [place] [address] Khadra Romo MD TCM Visit ([facility] + Unable to Schedule) 02/03/2025 Telephone [facility] [address] [place] [address] Khadra Romo MD Chest Pain 02/03/2025 Orders Only [address] [place] [address] Provider, MD Ramona 02/02/2025 Orders Only [facility] Department of Neurology [address] [place] [address], 8th Floor, [address] [place] [address] Debra Stapleton RN REM sleep behavior disorder (Primary Dx) 01/27/2025 11:20 AM EDT Office Visit [facility] [address] [place] [address] Khadra Romo MD Ischemic stroke of frontal lobe (Primary Dx); Orthostatic hypotension; Acute idiopathic pericarditis 01/19/2025 Telephone [facility] [address] [place] [address] Kelley Rubio TCM Visit 01/18/2025 Orders Only [address] [place] [address] Unknown, Beatriz, 01/17/2025 Telephone [facility] [address] [place] [address] Khadra Romo MD Red Call Sudden Altered mental status 01/16/2025 Telephone [facility] SUPPORT [address] [place] [address] Maddison Irizarry CNP Patient Returned Call 01/16/2025 Orders Only [address] [place] [address] Unknown, MD Beatriz 01/12/2025 10:40 AM EDT Telemedicine [facility] [address] [place] [address] Khadra Romo MD Hypermagnesemia (Primary Dx); Parkinsonism, unspecified Parkinsonism type; Cervical myelopathy 12/23/2024 Telephone [facility] [address] [place] [address] Khadra Romo MD Labs Only 12/20/2024 1:30 PM EDT Office Visit [facility] [address] 3rd Floor, [address] [place] [address] Laura Ayala CNP Orthostatic hypotension (Primary Dx); Lightheadedness; Cold feet 12/08/2024 3:30 PM EDT Telemedicine [facility] Department of Neurology [address], 8th [address], [address] [place] [address] John Chopra MD Dysautonomia (Primary Dx); Cognitive decline; Restless leg syndrome; REM sleep behavior disorder; Orthostatic hypotension from Last 3 Months Immunizations Immunization Administration Dates Next Due [id number] FORMULATION 05/28/2009 Hepatitis A, Adult 08/19/2023 Hepatitis [...] Pulse 117 03/03/2025 10:33 AM EDT Temperature 36.6 C (97.9 F) 03/02/2025 11:53 AM EDT Respiratory Rate 18 03/02/2025 11:53 AM EDT Oxygen Saturation 98% 03/03/2025 10:33 AM EDT Inhaled Oxygen Concentration - - Weight 80.4 kg (177 lb 3.2 oz) 01/27/2025 11:26 AM EDT Height 182.9 cm (6' 0.01 ) 12/20/2024 1:25 PM ED T Body Mass Index 24.03 12/20/2024 1:25 PM EDT Plan of Treatment Upcoming Encounters Date Type Department Care Team (Late st Contact Info) Description 03/09/2025 1:00 AM EST Appointment [facility] [address] [place] [address] Yuliana Givens RN [address] [place] [address] 03/13/2025 Appointment [facility] [address] [place], [place] [phone] Yuliana Givens RN [address] [place] [address] 03/15/2025 3:00 PM EST Office Visit [facility] Department of Neurology [address], 8th Floor, [address] [place] [address] Luanne Rodríguez MD [address] [facility] [address] [place] [address] [email or web address] 03/16/2025 2:00 AM EST Appointment [facility] [address] [place] [address] Yuliana Givens RN [address] [place] [address] 04/10/2025 11:00 AM EST Office Visit [facility] Neurology Neuromuscular [address], [address] [place] [address] Lenny Pendleton MD [address] [place] [address] [email or web address] 04/28/2025 1:00 AM EST Appointment [facility] [address] [place] [address] Yuliana Givens RN [address] [place] [address] 06/09/2025 1:00 PM EST Office Visit [facility] Department of Neurology [address], 8th Floor, [address] [place] [address] John Chopra MD 55 [facility] [address] [place] [phone] [email or web address] 07/21/2025 8:40 AM EDT Office Visit [facility] [address] [place] [address] Khadra Romo MD [address] [facility] [address] [place] [address] 08/25/2025 11:00 AM EDT Office Visit [facility] Cardiology [facility] [address] [facility] [address] [facility], [address] [place] [address] Clementine Brower MD [address] [place] [address] [email or web address] Health Maintenance Due Date Last Done Comments COLOGUARD 09/14/1999 COLONOSCOPY 09/14/1999 COLORECTAL CANCER SCREENING 09/14/1999 FIT TEST 09/14/1999 FOBT 09/14/1999 SIGMOIDOSCOPY 09/14/1999 VIRTUAL COLONOSCOPY 09/14/1999 COVID-19 VACCINE ( season) 2025 01/27/2024, 02/18/2023, 03/05/2022, Additional history exists DEPRESSION SCREENING 06/28/2025 06/28/2024, 06/17/19 24 CREATININE LEVEL 02/09/2026 02/09/2025, , 05/28/2024, Additional history exists POTASSIUM LEVEL 02/09/2026 02/09/2025, 05/06, 05/28/2024, Additional history exists Adult Td,Tdap Booster 06/24/2033 06/24/2023 , 11/14/2013, 05/04/2005 ZOSTER VACCINES Completed 09/29/2020, 04/03, 10/19/2015 PNEUMOCOCCAL VACCINES (50+ years) Completed 06/16/2022 RSV VACCINE Completed 02/18/2023 HEPATITIS A VACCINES Aged Out 08/19/2023 No long er eligible based on patient's age to complete this topic HEPATITIS C SCREENING Completed 06/29/2024 , 06/29/2024, 06/12/2021 INFLUENZA VACCINE Completed 01/27/2025, , 02/18/2023, Additional history exists SMOKING STATUS SCREENING (Once After 26 Yrs) Completed 03/03/2025 HIB VACCINES Aged Out No longer eligi ble based on patient's age to complete this topic MENINGOCOCCAL VACCINES (ACWY) Aged Out No longer eligible based on patient's age to complete this topic MENINGOCOCCAL VACCINES (B) Aged Out N o longer eligible based on patient's age to complete this topic Medical Devices Implanted Type Area Wound Treatment Rn Device Identifier Shelf Expiration Date Model / Serial / Lot Cranial Plate [id number] 20 Hole Bone Mandibular Trauma Adaption Straight Titanium - [id number] Implanted:Qty: 1 on 05/27/2024 by Margoth Velásquez MD at [facility] N/A: Posterior Cervical DEPUY SY[employer]ES [employer] 449.020 / / Screw Bone 2x5mm Cortex Titanium Self Drilling Plusdrive Recess Single - [id number] Implanted:Qty: 3 on 05/27/2024 by Margoth Velásquez MD at [facility] N/A: Posterior Cervical [employer] [id number] / / Screw Bone 2x6mm Cranial Cortex Titanium Self Tapping Cruciform Recess Gold - [id number] Implanted:Qty: 8 on 05/27/2024 by Margoth Velásquez MD at [facility] N/A: Posterior Cervical [employer] [id number] / / Procedures Procedure Name Priority Date/Time Associated Diagnosis Comments OUTSIDE IMAGING Routine 02/27/2025 11:38 AM EDT OUTSIDE IMAGING Routine 02/24/2025 10:10 AM EDT OUTSIDE PROCEDURE Routine 02/24/2025 10: 07 AM EDT OUTSIDE IMAGING Routine 02/23/2025 11:37 AM EDT OUTSIDE IMAGING Routine 02/20/2025 2:30 PM EDT OUTSIDE IMAGING Routine 02/20/2025 2:08 PM EDT OUTSIDE IMAGING Routine 02/19/2025 10:10 AM EDT OUTSIDE IMAGING Routine 02/09/2025 10:51 AM EDT BASIC METABOLIC PANEL (BMP) Routine 02/09/2025 10:01 AM EDT Hypermagnesemia MAGNESIUM Routine 02/09/2025 10:01 AM EDT Hypermagnesemia PARATHYROID HORMONE (PTH) Routine 02/09/2025 10:01 AM EDT Hypermagnesemia OUTSIDE IMAGING Routine 02/02/2025 10:18 AM EDT OUTSIDE IMAGING Routine 01/17/2025 8:07 AM EDT OUTSIDE IMAGING Routine 01/14/2025 9:50 AM EDT OUTSIDE IMAGING Routine 01/14/2025 9:47 AM EDT HEPATITIS B SURFACE ANTIGEN Routine 06/29/2024 9:31 AM EST Need for hepatitis B screening test from Last 3 Months or Most Recently Relevant to Health Maintenance Results * Outside Imaging Report Only (02/27/2025 11:38 AM EDT) us Historical Provider IMG XR CHEST Final Res ult * Outside Imaging Report Only (02/24/2025 10:10 AM EDT) us Historical Provider IMG XR CHEST Final Res ult * Outside Procedure (02/24/2025 10:07 AM EDT) us Historical Provider PROCEDURE/MINOR SURGICAL PERFORMABLES Final Result * Outside Imaging Report Only (02/23/2025 11:37 AM EDT) Historical Provider MD IMG XR CHEST Final Res ult * Outside Imaging Report Only (02/20/2025 2:30 PM EDT) Historical Provider IMG XR CHEST Final Res ult * Outside Imaging Report Only (02/20/2025 2:08 PM EDT) Historical Provider IMG XR CHEST Final Res ult * Outside Imaging Report Only (02/19/2025 10:10 AM EDT) Historical Provider IMG XR CHEST Final Res ult * Outside Imaging Report Only (02/09/2025 10:51 AM EDT) Result [facility] Historical Provider IMG XR CHEST Final Res ult * Parathyroid hormone (PTH) (02/09/2025 10:01 AM EDT) PARATHYROID HORMONE 42 15 - 65 pg/mL [facility] Blood 02/09/2025 10:0 1 AM EDT 02/09/2025 10:06 AM EDT Result [facility] Khadra Romo MD LAB BLOOD BKR ORDERABLES Fin al Result Performing Organization Address City/State/[facility] Co de Phone Number [address] [address] * Magnesium (02/09/2025 10:01 AM EDT) MAGNESIUM 2.2 1.6 - 2.6 mg/dL [facility] Blood 02/09/2025 10:0 1 AM EDT 02/09/2025 10:06 AM EDT Result [facility] Khadra Romo MD LAB BLOOD BKR ORDERABLES Fin al Result Performing Organization Address City/State/[facility] de Phone Number [address] [address] * (ABNORMAL) Basic metabolic panel (02/09/2025 10:01 AM EDT) SODIUM 138 133 - 146 mmol/L [facility] CHLORIDE 103 96 - 108 mmol/L [facility] POTASSIUM 4.1 3.3 - 5.1 mmol/L [facility] CO2 24 21 - 35 mmol/L [facility] BUN 15 6 - 19 mg/dL [facility] CREATININE 0.80 0.5 - 1.5 mg/dL [facility] GLUCOSE 104(H) 70 - 99 mg/dL [facility] CALCIUM 8.2(L) 8.4 - 10.3 mg/dL [facility] EGFR 95 >59 mL/min/1.7 3m2 [facility] Comment:Estimated glomerular filtration rate calculated using the CKD-EPI refit equation. ANION GAP 15 10 - 20 mmol/L [facility] Blood 02/09/2025 10:0 1 AM EDT 02/09/2025 10:06 AM EDT us Khadra Romo MD LAB BLOOD BKR ORDERABLES Fin al Result Performing Organization Address [facility] de Phone Number [address] [address] * Outside Imaging Report Only (02/02/2025 10:18 [...] XR CHEST Edited Result - Final * Hepatitis B surface antigen (06/29/2024 9:31 AM EST) HBV SURFACE ANTIGEN NON-REACTI VE NON-REACTI VE [facility] Blood 06/29/2024 9:31 AM EST 06/29/2024 9:39 AM EST us Khadra Romo MD LAB BLOOD BKR ORDERABLES Fin al Result [facility] [address] [place], [place] [id number] from Last 3 Months or Most Recently [...] Advance Directives For more information, please contact: [phone] (9AM - 5PM [place]/[facility], Thursday-Thursday) Documents on File Type Date Recorded Patient Keller Machine Operator Expl anation MOLST 03/03/2025 Healthcare Proxy 07/22/2024 * Full Code (Latest Code Status on File) Date Activated Date Inactivated Comments 05/27/2024 11:53 AM Question Answer Comments Code Status Confirmed With: Other (specify below ) Code Discussion Comments: periop Care Teams Thickener Operator Relationship Specialty Start Date End Date Khadra Romo MD [address] [address] [email or web address] PCP - General Family Medicine 06/12/21 John Chopra MD [address] [place] [phone] [email or web address] 06/17/23 Lenny Pendleton MD [address] [facility] [address] [place] [address] [email or web address] [email or web address] 06/17/23 Additional Source Comments The information contained in this document represents components of the legal health record. It is not the complete legal health record.[facility]
--- OUTSIDE RECORDS SUMMARY | 2025-03-08 14:43 | XMS_ITS | Data Portability ---
Author Organization MATTHEW [facility] [address] Address [address] [place] [address] Assessment No assessment recorded. Plan of Treatment [...] By Organization Details Last Modified Time 04/19/2022 [id number] earwax blockage: care instructions [email or web address] 3 Not [...] and Address Organization Details Recorded Time Hyperlipidemia 89038029 Active 2021 MATTHEW [facility] 15:42:16 Depressive disorder 32311708 Active 2021 MATTHEW [facility] [...] Updated DateTime 2 182.88 cm 23.6 kg/m2 12165.0 7 g 18 /min 0 100 % 100 % 54 /min 98.8 [degF] 132/70 mm[Hg] NASIR HANCOCKRON PA - [facility] 15:45:46 Social History Question Answer Notes LastModified by P[employer] Details LastModified Time Tobacco Smoking Status Never Smoker NASIR HANCOCKRON regalado PA - [facility] 04/19/2022 15:44:21 Have You Recently Traveled Abroad? No Information not available 04/19/2022 Sex: Unknown Functional Status Question Answer Note LastModified by [employer] Details LastModified Time Do you use any [...] PA - [facility] 04/19/2022 15:41:42 Novel [id number], all formulations 0 completed NASIR MACHNACZ null, [...] ICD10 Code Diagnosis IMO Codes Diagnosis Note [id number] [facility] [address] [address] 08/16/2016 16:58:42 08/16/2016 18:27:26 [id number] Eugenia [place]varez [place] [address] [facility] [address] [phone] 04/19/2022 15:23:51 04/19/2022 16:28:37 Impacted cerumen of bilateral ears [id number] H61.23 Health Concerns Section Related Observation LastModified by Organization Detai ls LastModified Time None Recorded Concern Status LastModified by Organization Details LastModified Time None Recorded Advance Directives Directive None Recorded Payers Insurance Date Sequence Insurance Name Policy Number Policy Tellez Covered Member ID Tellez Member ID Guarantor Name 04/19/2022 1 [employer] [place] [id number] Danny Lee [id number] Danny Lee 04/19/2022 1 [facility] - MEDICARE PREFERRED (MEDICARE REPLACEMENT HMO) [facility] Dannymurtaza Lee [id number] Danny Lee Notes Date Note Type Note [...] andoften has wax accumulation. Eugenia Bearden MD [address] [place] [address] [place], [place], [address], PA - [facility] 04/19/2022 16:36:46
--- OUTSIDE RECORDS SUMMARY | 2025-03-08 14:43 | XMS_ITS | Encounter Summary ---
Author Organization [facility] Address [address] [place] [address] Phone Care Team Providers Care Shop Service Technician Name Role Phone Khadra Romo MD Primary Care Provider [phone] Pcp, Unknown Unavailable Unavailable John Chopra MD Unavailable [phone] Lenny Pendleton MD Unavailable Encounter Details Date Type Department Care Team (Late st Contact Info) Description 11/22/2022 Procedure Pass [facility], [address] [address] Social History Tobacco Use Types Packs/Day Years [...] Appointment [facility] [address] [place], [place] [phone] Yuliana Givens RN [address] [place] [address] 03/13/2025 Appointment [facility] [address] [place], [place] [phone] Yuliana Givens RN [address] [place] [address] 03/15/2025 3:00 PM EST Office [facility] [place] of Neurology [address] [facility], 8th Floor, [address] [place] [address] Luanne Rodríguez MD 55 [facility] 720 [place] [address] [email or web address] 03/16/2025 2:00 AM EST Appointment [facility] [address] [place] [address] Yuliana Givens RN [address] [place] [address] [email or web address] 04/10/2025 11:00 AM EST Office [facility] Neurology [address], [address] [place] [address] Lenny Pendleton MD [address] [place] [address] 820 [place] [address] [email or web address] 04/28/2025 1:00 AM EST Appointment [facility] [address] [place] [phone] Yuliana Givens RN [address] [place] [address] [email or web address] 06/09/2025 1:00 PM EST Office [facility] Department of Neurology [address] [place] [address], 8th Floor, [address] [place] [address] John Chopra MD 55 [facility] 835 [place] [phone] [email or web address] 07/21/2025 8:40 AM EDT Office Visit [facility] [place] [facility] [address] [place] [address] Khadra Romo MD 15 [facility] [address]ny. [address] [place] [address] [email or web address] 08/25/2025 11:00 AM EDT Office Visit [facility] Cardiology [facility] [address] [facility], [address] [place] [address] Clementine Brower MD [address] [place] [address] [email or web address] documented as of this encounter Visit Diagnoses Not on filedocumented in this encounter Additional Health Concerns Assessment Noted Time PHQ-9 Depression Total Score: 13 023 11:10 PM EST PHQ-2 Depression Total Score: 4 06/15/19 23 11:10 PM EST documented as of this encounter Care Teams Shop Service Technician Relationship Specialty Start Date End Date Khadra Romo MD [address] [address] [email or web address] PCP - General Family Medicine 06/12/21 Pcp, Unknown 01/28/21 06/16/23 John Chopra MD [address] [place] [phone] [email or web address] [email or web address] 06/17/23 Lenny Pendleton MD [address] [place] [address] 820 [place] [address] [email or web address] Neurology 06/17/23 documented as of this encounter Additional Source Comments The information contained in this document represents components of the legal health record. It is not the complete legal health record.[facility]
--- OUTSIDE RECORDS SUMMARY | 2025-03-08 14:43 | XMS_ITS | Encounter Summary ---
Author Organization [facility] Address [address] [place] [address] Phone Care Team Providers Care Biological Plant Operator Name Role Phone Khadra Romo MD Primary Care Provider [phone] John Chopra MD Unavailable [phone] Lenny Pendleton MD Unavailable Encounter Details Date Type Department Care Team (Late st Contact Info) Description 11/10/2023 Procedure Pass [facility], [address] [address] Social History Tobacco Use Types Packs/Day Years [...] high school, GED, job training, learning the [place] language, technical skills, or developing parenting skills)? [...] EST Appointment [facility] [address] [place] [phone] Yuliana Givens RN [address] [place] [address] 03/13/2025 Appointment [facility] [address] [place], [place] [phone] Yuliana Givens RN [address] [place] [address] 03/15/2025 3:00 PM EST Office Visit [facility] Department of Neurology [address] [place] [address], 8th Floor, [address] [place] [address] Luanne Rodríguez MD [address] [address] [email or web address] 03/16/2025 2:00 AM EST Appointment [facility] [address] [place], [place] [phone] Yuliana Givens RN [address] [place] [address] 04/10/2025 11:00 AM EST Office Visit [facility] Neurology Neuromuscular [address], [address] [place] [address] Lenny Pendleton MD [address] [place] [address] [address] [place] [address] [email or web address] 04/28/2025 1:00 AM EST Appointment [facility] [address] [place], [place] [phone] Yuliana Givens RN [address] [place] [address] 06/09/2025 1:00 PM EST Office Visit [facility] Department of Neurology [address] [place] [address], 8th Floor, [address] [place] [address] John Chopra MD [address] [place] [phone] [email or web address] 07/21/2025 8:40 AM EDT Office Visit [facility] [place] [facility] [address] [facility] [address] [place] [address] Khadra Romo MD 15 [facility] 201 [place] [address] [email or web address] 08/25/2025 11:00 AM EDT Office Visit [facility] Cardiology [facility] 52 [facility], [address] [place] [address] Clementine Brower MD 40 [facility], [address] [place] [address] [email or web address] documented as of this encounter Visit Diagnoses Not on filedocumented in this encounter Additional Health Concerns Assessment Noted Time PHQ-9 Depression Total Score: 12 024 3:46 PM EST PHQ-2 Depression Total Score: 4 06/23/19 24 11:49 PM EST documented as of this encounter Care Teams Biological Plant Operator Relationship Specialty Start Date End Date Khadra Romo MD 15 [facility] 201 [place] [address] [email or web address] PCP - General Family Medicine 06/12/21 John Chopra MD [address] [phone] [email or web address] Neurology 06/17/23 Lenny Pendleton MD 165 [facility] 820 [place] [address] [email or web address] [email or web address] 06/17/23 documented as of this encounter Additional Source Comments The information contained in this document represents components of the legal health record. It is not the complete legal health record.[facility]
--- OUTSIDE RECORDS SUMMARY | 2025-03-08 14:43 | XMS_ITS | Data Portability ---
Author Organization [place] [facility] Address [address] [place] [phone] Care Team Providers Care Ticket Manager Name Role Phone [facility] Primary Care Provider Assessment Encounter Date Assessment [...] Lab culture, michelleicia l wound 2018 019 [employer] (Centralized Electronic Ordering - All Locations), Patient Can Go To The Location Of Their Choice, [id number] 11:21:29 Referral None recorded. Procedures None recorded. Surgeries None recorded. Imaging None recorded. Medication Orders Keflex 500 mg capsule 2018 019 [id number], [address] [place], [place], [id number], 19:43:24 cephalexin 500 mg capsule 2018 019 [facility] #[id number], [address] [place], [place], [id number], 19:43:14 Patient TargetsNo targets recorded. Patient Instructions Encounter Date Encounter Id Patient Instructions Last Modified By Organization Details Last Modified Time 01/12/2019 [id number] YOU WERE SEEN FOR WOUND ON YOUR TOE THE WOUND IS INFECTED ANTIBIOTICS WERE SEND TO YOUR PHARMACY, PLEASE TAKE PRESCRIBED CONTINUE WARM SOAKS EVERY NIGHT AND APPLY BACITRACIN FOLLOW UP WITH YOUR PRIMARY CARE DOCTOR NEEDED SEEK IMMEDIATE MEDICAL ATTENTION OR CALL 911 IF YOU DEVELOP ANY NEW CONCERNING SYMPTOMS Thank you for your visit with [facility] today. You were seen today for treatment [...] condition between 8am-10pm, please call [facility] at [phone] to help navigate your care. [email or web address] Not [...] Go To The Location Of Their Choice, [id number] 01/15/2019 11:21:29 01/13/2001/15/2019 cultu re, super ficia [...] Response Diabetes N Coronary Artery Disease N High Cholesterol Y Pulmonary Embolism N Cancer N Hypertension N Stroke N Asthma N COPD N Depression Y Kidney Disease N Past Encounters Encounter ID Performer Location Encounter Start Date Encounter Closed Date Diagnosis/Indication Diagnosis SNOMED-CT Code Diagnosis ICD10 Code Diagnosis IMO Codes Diagnosis Note [id number] MAT[facility]W VENEGAS [facility] [address] [place] [address] 01/12/2019 19:26:41 01/13/2019 01:55:49 Paronychia of toe 531951698 L03.039 Wound cellulitis 7633927 03 L03.90 Health Concerns Section Related Observation LastModified by Organization Detai ls LastModified Time None Recorded Concern Status LastModified by Organization Details LastModified Time None Recorded Advance Directives Directive None Recorded Payers Insurance Date Sequence Insurance Name Policy Number Policy Tellez Covered Member ID Tellez Member ID Guarantor Name 01/13/2019 1 [facility] [id number] Chilo Lee [id number] Chilomurtaza Lee 01/10/2019 1 *SELF PAY* Chilo Lee [id number] Chilomurtaza Lee 01/13/2019 1 [facility] [id number] [facility] [id number] Chilo Lee Notes Date Note Type Note [...] depression, HLD MATTHEW VENEGAS [address], [place], [address], [place] [facility] 01/13/2019 01:50:39
--- OUTSIDE RECORDS SUMMARY | 2025-03-08 14:43 | XMS_ITS | Encounter Summary ---
Author Organization [facility] Address [address] [place] [address] Phone Care Team Providers Care Complex Manager Name Role Phone Khadra Room MD Primary Care Provider [phone] John Chopra MD Unavailable [phone] Lenny Pendleton MD Unavailable Encounter Details Date Type Department Care Team (Late st Contact Info) Description 02/20/2025 Orders Only [facility] [address] [place] [address] [place] [address] Provider, MD Ram[facility] [place] [address] Social History Tobacco Use Types [...] Appointment [facility] [address] [place], [place] [phone] Yuliana Givens RN [address] [place] [address] 03/13/2025 Appointment [facility] [address] [place], [place] [phone] Yuliana Givens RN [address] [place] [address] 03/15/2025 3:00 PM EST Office [place] [facility] [place] of [place]rology [address] [place] [address], 8th Floor, [address] [place] [address] Luanne Rodríguez MD 55 [facility] 720 [place] [address] [email or web address] 03/16/2025 2:00 AM EST Appointment [facility] [address] [place] [address] Yuliana Givens RN [address] [place] [address] 04/10/2025 11:00 AM EST Office Visit [facility] Neurology Neuromuscular [address], [address] [place] [address] Lenny Pendleton MD 165 [facility] [address] [place] [address] [email or web address] 04/28/2025 1:00 AM EST Appointment [facility] [address] [place], [place] [phone] Yuliana Givens RN 168 [place] [address] 06/09/2025 1:00 PM EST Office Visit [facility] Department of Neurology 55 [facility], 8th Floor, [address] [place] [address] John Chopra MD 55 [facility] 835 [place] [phone] [email or web address] 07/21/2025 8:40 AM EDT Office Visit [facility] [place] [facility] 15 [facility] [address] [place] [address] Khadra Romo MD 15 [facility] Sonny. [address] [place] [address] [email or web address] 08/25/2025 11:00 AM EDT Office Visit [facility] 52 [facility], [address] [place] [address] Clementine Brower MD 40 [facility], [address] [place] [address] [email or web address] documented as of this encounter Procedures Procedure Name Priority Date/Time Associated Diagnosis Comments OUTSIDE IMAGING Routine 02/20/2025 2:30 PM EDT OUTSIDE IMAGING Routine 02/20/2025 2:08 PM EDT OUTSIDE IMAGING Routine 02/19/2025 10:10 AM EDT documented in this encounter Results * Outside Imaging Report Only (02/20/2025 2:30 PM EDT) us Historical Provider MD NAVAS XR CHEST Final Res ult * Outside Imaging Report Only (02/20/2025 2:08 PM EDT) us Historical Provider MD NAVAS XR CHEST Final Res ult * Outside Imaging Report Only (02/19/2025 10:10 AM EDT) us Historical Provider MD NAVAS XR CHEST Final Res ult documented in this encounter Visit Diagnoses Not on filedocumented in this encounter Additional Health Concerns Assessment Noted Time PHQ-9 Depression Total Score: 12 024 3:46 PM EST PHQ-2 Depression Total Score: 1 06/28/19 25 2:08 PM EST documented as of this encounter Care Teams Complex Manager Relationship Specialty Start Date End Date Khadra Romo MD 15 [facility] [address] [place] [address] [email or web address] PCP - General Family Medicine 06/12/21 John Chopra MD 55 [facility] [address] [place] [phone] [email or web address] Neurology 06/17/23 Lenny Pendleton MD 165 [facility] 820 [place] [address] [email or web address] [email or web address] 06/17/23 documented as of this encounter Additional Source Comments The information contained in this document represents components of the legal health record. It is not the complete legal health record.[facility]
--- OUTSIDE RECORDS SUMMARY | 2025-03-08 14:43 | XMS_ITS | Encounter Summary ---
Author Organization [facility] Address [address] [place] [address] Phone Care Team Providers Care Rush Seater Name Role Phone Khadra Romo MD Primary Care Provider [phone] John Chopra MD Unavailable [phone] Lenny Pendleton MD Unavailable Reason for Visit * Reason Onset Date Comments Patient Returned Call 01/16/2025 Encounter Details Date Type Department Care Team (Late st Contact Info) Description 01/16/2025 Telephone [facility] 2 [place], [place] [phone] Maddison Irizarry CNP 2 [place] [address] [email or web address] Patient Returned Call Social History Tobacco Use [...] feeling fine currently, no concerns. Has called [facility] to [facility] appointment, has not heard back yet. Was not happy with [facility] and would like to proceed with [facility]. F/U appt scheduled for 01/19 with PCP. ED notes in Media. * Jazmin Mark - 01/16/2025 2:25 PM EDT PT lvm on the triage line returning phone call to ANN-MARIE CSS Agent (Please do not reply to [...] Appointment [facility] [address] [place] [phone] Yuliana Givens RN [address] [place] [address] 03/13/2025 Appointment [facility] 30 [place] [phone] Yuliana Givens RN [address] [place] [address] 03/15/2025 3:00 PM EST Office Visit [facility] Department of Neurology [address] [place] [address], 8th Floor, [address] [place] [address] Luanne Rodríguez MD [address] [place] [address] 720 [place] [address] [email or web address] 03/16/2025 2:00 AM EST Appointment [facility] [address] [place], [place] [phone] Yuliana Givens RN [address] [place] [address] 04/10/2025 11:00 AM EST Office Visit [facility] Neurology Neuromuscular [address], [address] [place] [address] Lenny Pendleton MD [address] [place] [address] [address] [place] [address] [email or web address] 04/28/2025 1:00 AM EST Appointment [facility] [address] [place], [place] [phone] Yuliana Givens RN [address] [place] [address] 06/09/2025 1:00 PM EST Office Visit [facility] Department of Neurology [address] [place] [address], 8th Floor, [address] [place] [address] John Chopra MD 55 [facility] 835 [place] [phone] [email or web address] 07/21/2025 8:40 AM EDT Office Visit [facility] [place] [facility] 15 [facility] 201 [place] [address] Khadra Romo MD 15 [facility] 201 [place] [address] [email or web address] 08/25/2025 11:00 AM EDT Office Visit [facility] Cardiology [facility] 52 [facility], [address] [place] [address] Clementine Brower MD 40 [facility], [address] [place] [address] [email or web address] documented as of this encounter Visit Diagnoses Not on filedocumented in this encounter Additional Health Concerns Assessment Noted Time PHQ-9 Depression Total Score: 12 024 3:46 PM EST PHQ-2 Depression Total Score: 1 06/28/19 25 2:08 PM EST documented as of this encounter Care Teams Rush Seater Relationship Specialty Start Date End Date Khadra Romo MD [address] [address] [email or web address] PCP - General Family Medicine 06/12/21 John Chopra MD [address] [place] [address] [place] [phone] [email or web address] Neurology 06/17/23 Lenny Pendleton MD [address] [place] [address] 820 [place] [address] [email or web address] Neurology 06/17/23 documented as of this encounter Additional Source Comments The information contained in this document represents components of the legal health record. It is not the complete legal health record.[facility]
--- OUTSIDE RECORDS SUMMARY | 2025-03-08 14:44 | XMS_ITS | Data Portability ---
Author Organization [facility], Main Office Address [address] [facility] [address] [place] [id number] Care Team Providers Care Research And Development Technician Name Role Phone THANIA RODRIGUEZ Drug And Alcohol Treatment Specialist JUANCARLOS MILLARD Primary Care Provider KAREEM HERNANDEZ General Surgeon Assessment No assessment recorded. Plan of Treatment Reminders Order Date Submit Date Provider Last Modified By Organization Details Last Modified Time Details Appointments None recorded. Lab lipid panel, serum 2017 018 [id number], [address] [place], [address], 8 22:33:50 ALT (alanine aminotrans ferase), serum or plasma 2017 018 [id number], [address] [place], [address], 8 22:33:47 AST/SGOT (aspartate aminotrans ferase), serum or plasma 2017 018 [id number], [address] [place], [address], 8 22:33:48 BMP, serum or plasma 2017 018 [id number], [address] [place], [address], 8 22:33:49 Referral general surgeon referral 2018 019 martina [facility] For [facility], [address], [address], [place], [address], 9 16:06:43 general surgeon referral - pt wants lipoma removed from upper back 2017 018 rosanne Cronin MD, [address], [address], [place], [address], 8 15:30:07 general surgeon referral - pt has lipoma on left interspina l area and wants it removed 2016 017 rosanne Cronin MD, [address], [address], [place], [address], 7 10:01:34 neurologis t referral - pt notes worsening sx in terms of plantar feet sensitivit y/ and he has noted balance problems/ pt wants to know if he has any other options like Phys tx 2016 017 martina Stephens MD, [address] [place] [address] Dr, [facility] [address] [place], [address], 7 19:42:45 Procedures None recorded. Surgeries None recorded. Imaging None recorded. Medication Orders tadalafil 20 mg tablet 2018 019 [id number], [address], [place], [id number], 9 09:37:27 lovastatin 20 mg tablet 2018 019 [id number], [address], [place], [id number], 9 09:37:27 Bactrim DS 800 mg-160 mg tablet 2017 018 [id number], [address], [place], [id number], 9 08:43:15 Bactrim DS 800 mg-160 mg tablet 2016 017 [facility] 3, [address] [place] [address], [id number], 9 08:43:15 Patient TargetsNo targets recorded. Patient Instructions Encounter Date Encounter Id Patient Instructions Last Modified By Organization Details Last Modified Time 08/22/2016 [id number] Medications (OTC, herbal therapies, supplements) reviewed and reconciled with patient and or caregiver, including potential side effects, drug interactions, instructions, and the consequences of not taking medication. Reviewed potential barriers to medication adherence, such as side effects from medication or cost of medication. claritza Not available 08/22/2016 15:01:07 01/28/2017 [id number] rec. take probiotic supplement or icelandic yogurt while on abx pmadden Not available 01/28/2017 10:16:38 Follow up if no improvement or if symptoms worsen. I have reviewed the note and agree with the assessment and plan of care. arslan Not available 01/28/2017 10:39:29 04/09/2018 [id number] sitz bath info awychowski Not available 04/09/2018 09:50:36 skin abscess: care instructions awychowski Not available 04/09/2018 09:50:36 cellulitis: care instructions awychowski Not available 04/09/2018 09:50:36 Please apply a warm compress for 20min 4 times daily. awychowski Not available 04/09/2018 09:53:48 05/31/2018 [id number] Medications (OTC, herbal therapies, supplements) reviewed and [...] VITAM IN D. Refer ence: [facility] Data Brief : No.59 July: Vitam in [...] Go To The Location Of Their Choice, [id number] 05/25/2018 17:13:35 05/25/1905/25/2018 lipid panel , serum [...] vitam in D. Refer ence: [facility] Data Brief : No.59 July: Vitam in D Statu s: Unite d State s: [id number] As of , Vitam in D, 25-Hy droxy assay has been [facility]. In some [facility] nces, the new assay may yield a highe r value (up to 15% incre ase) in dinor[place] rison to the old assay . These incre ases would mainl y be notic eable at value s of great er than 50 ng/ml . Not Available [facility] (Centralized Electronic Ordering - All Locations) Patient Can Go To The Location Of Their Choice, [id number] 05/25/2018 17:17:43 05/25/1905/25/2018 HbA1c (hemo globi n [...] Go To The Location Of Their Choice, [id number] 05/25/2018 20:55:44 05/25/1905/26/2018 hepat itis C virus Ab, serum anti-hepatit is C NEGAT ANAM Refer ence range : Negat anam This test was perfo rmed on the Abbot t Archi tect immun oassa y syste m. Not Available [facility] (Centralized Electronic Ordering - All Locations) Patient Can Go To The Location Of Their Choice, [id number] 05/26/2018 08:07:52 08/26/19 17 08/16/2016 XR, cervi kerry spine No observ ation record ed. [email or web address] [facility] [address] , [place], [address], 08/25/2016 12:27:16 Result Notes None recorded. 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 Liseth regalado [facility] 6 09:16:08 Infectiv e hepatiti s immuniza tion Completed 200811/15/2013 RECORDED 05/24/19 09 9:24AM BY DAYNA RIOS, NURSE VISIT Liseth regalado [facility] 6 09:16:09 Infectiv e hepatiti s immuniza tion Completed 200812/08/2013 RECORDED 05/24/19 09 9:24AM BY DAYNA RIOS, NURSE VISIT Liseth regalado [facility] 6 09:16:09 Infectiv e hepatiti s immuniza tion Completed 200812/09/2013 RECORDED 05/24/19 09 9:24AM BY DAYNA RIOS, NURSE VISIT Liseth regalado [facility] 6 09:16:09 Influenz a vaccine needed 72915767573 06 Completed 200811/15/2013 RECORDED 10/19/19 09 10:09AM BY RICKI GORDILLO MD, ANNOTATI ON/ADDEN DUM Liseth regalado [facility] 6 09:16:08 General examinat ion of patient Completed 200811/15/2013 RECORDED 10/19/19 09 10:09AM BY RICKI GORDILLO MD, ANNOTATI ON/ADDEN DUM Liseth Hooks null, [facility] 6 09:16:09 Influenz a vaccine needed 77090920372 06 Completed 200812/08/2013 RECORDED 10/19/19 09 10:09AM BY RICKI GORDILLO MD, ANNOTATI ON/ADDEN DUM Liseth Hooks null, [facility] 6 09:16:08 General examinat ion of patient Completed 200812/08/2013 RECORDED 10/19/19 09 10:09AM BY RICKI GORDILLO MD, ANNOTATI ON/ADDEN DUM Liseth Hooks null, [facility] 6 09:16:09 Screenin g for malignan t neoplasm of colon Completed 200812/08/2013 RECORDED 10/19/19 09 10:09AM BY RICKI GORDILLO MD, ANNOTATI ON/ADDEN DUM Leslie Ervin [facility] 7 10:10:53 Influenz a vaccine needed 74968669327 06 Completed 200812/09/2013 RECORDED 10/19/19 09 10:09AM BY RICKI GORDILLO MD, ANNOTATI ON/ADDEN DUM Liseth Hooks null, [facility] 6 09:16:09 General examinat ion of patient Completed 200812/09/2013 RECORDED 10/19/19 09 10:09AM BY RICKI GORDILLO MD, ANNOTATI ON/ADDEN DUM Liseth Hooks null, [facility] 6 09:16:09 Screenin g for malignan t neoplasm of colon Completed 200812/09/2013 RECORDED 10/19/19 09 10:09AM BY RICKI GORDILLO MD, ANNOTATI ON/ADDEN DUM Leslie Ervin MA null, [facility] 7 10:10:53 Hyperlip idemia 01808811 Completed 200911/15/2013 RECORDED 09/07/19 10 1:34PM BY ELIANE RIOS MA, ANNOTATI ON/ADDEN DUM Liseth Hooks null, [facility] 6 09:16:08 Acute upper respirat ory infectio n 92252976 Completed 201211/15/2013 RECORDED 07/31/19 13 9:55AM BY KENDRICK HIGHTOWER MA, ANNOTATI ON/ADDEN DUM Leslie Ervin MA null, [facility] 7 10:11:22 Chest pain 76162860 Completed 201211/15/2013 RECORDED 07/31/19 13 9:54AM BY KENDRICK HIGHTOWER MA, ANNOTATI ON/ADDEN DUM Liseth Hooks null, [facility] 6 09:16:08 Screenin g for malignan t neoplasm of colon Completed 201211/15/2013 RECORDED 07/31/19 13 9:55AM BY KENDRICK HIGHTOWER MA, ANNOTATI ON/ADDEN DUM Leslie Ervin MA null, [facility] 7 10:10:53 Risk of exposure to communic able disease 839140477 Completed 201211/15/2013 RECORDED 07/31/19 13 9:55AM BY KENDRICK HIGHTOWER MA, ANNOTLISA ON/ADDEN DUM Liseth Hooks null, [facility] 6 09:16:08 Dysuria 38912613 Completed 201211/15/2013 RECORDED 07/31/19 13 9:55AM BY KENDRICK HIGHTOWER MA, ANNOTATI ON/ADDEN DUM Liseth Hooks null, [facility] 6 09:16:08 Enthesop athy of knee 31140824 Completed 201211/15/2013 RECORDED 07/31/19 13 9:55AM BY KENDRICK HIGHTOWER MA, ANNOTATI ON/ADDEN DUM Liseth Hooks null, [facility] 6 09:16:08 Blood in urine 63081444 Completed 201211/15/2013 RECORDED 07/31/19 13 9:54AM BY KENDRICK HIGHTOWER MA, ANNOTATI ON/ADDEN DUM Liseth Hooks null, [facility] 6 09:16:08 Malaise and fatigue 415792019 Completed 201211/15/2013 RECORDED 07/31/19 13 9:55AM BY KENDRICK HIGHTOWER MA, ANNOTATI ON/ADDEN DUM Liseth Hooks null, [facility] 6 09:16:08 Administ ration of diphther ia and tetanus vaccine Completed 201211/15/2013 RECORDED 07/31/19 13 9:55AM BY KENDRICK HIGHTOWER MA, ANNOTATI ON/ADDEN DUM Liseth Hooks null, [facility] 6 09:16:09 Disorder of skin 30647206 Completed 201211/15/2013 RECORDED 07/31/19 13 9:55AM BY KENDRICK HIGHTOWER MA, ANNOTATI ON/ADDEN DUM Liseth Hooks null, [facility] 6 09:16:08 Sprain of spinal ligament 679488205 Completed 201211/15/2013 RECORDED 07/31/19 13 9:55AM BY KENDRICK HIGHTOWER MA, ANNOTATI ON/ADDEN DUM Liseth Hooks null, [facility] 6 09:16:08 Acute upper respirat ory infectio n 80929874 Completed 201212/08/2013 RECORDED 07/31/19 13 9:55AM BY KENDRICK HIGHTOWER MA, ANNOTATI ON/ADDEN DUM Leslie Bigby WILLY null, [facility] 7 10:11:22 Chest pain 89225498 Completed 201212/08/2013 RECORDED 07/31/19 13 9:54AM BY KENDRICK HIGHTOWER MA, ANNOTATI ON/ADDEN DUM Liseth Hooks null, [facility] 6 09:16:08 Risk of exposure to communic able disease 941283329 Completed 201212/08/2013 RECORDED 07/31/19 13 9:55AM BY KENDRICK HIGHTOWER MA, JEREMIAHATI ON/ADDEN DUM Liseth Hooks null, [facility] 6 09:16:08 Dysuria 80362592 Completed 201212/08/2013 RECORDED 07/31/19 13 9:55AM BY KENDRICK HIGHTOWER MA, ANNOTATI ON/ADDEN DUM Liseth Hooks null, [facility] 6 09:16:08 Enthesop athy of knee 55699056 Completed 201212/08/2013 RECORDED 07/31/19 13 9:55AM BY KENDRICK HIGHTOWER MA, ERMA ON/ADDEN DUM Liseth Hooks null, [facility] 6 09:16:08 Blood in urine 06563335 Completed 201212/08/2013 RECORDED 07/31/19 13 9:54AM BY KENDRICK HIGHTOWER MA, ERMA ON/ADDEN DUM Liseth Hooks null, [facility] 6 09:16:08 Malaise and fatigue 067133310 Completed 201212/08/2013 RECORDED 07/31/19 13 9:55AM BY KENDRICK HIGHTOWER MA, ERMA ON/ADDEN DUM Liseth Hooks null, [facility] 6 09:16:08 Administ ration of diphther ia and tetanus vaccine Completed 201212/08/2013 RECORDED 07/31/19 13 9:55AM BY KENDRICK HIGHTOWER MA, ERMA ON/ADDEN DUM Liseth Hooks null, [facility] 6 09:16:09 Disorder of skin 59999916 Completed 201212/08/2013 RECORDED 07/31/19 13 9:55AM BY KENDRICK HIGHTOWER MA, ANNOTATI ON/ADDEN DUM Liseth Hooks null, [facility] 6 09:16:08 Adult health examinat ion Completed 201212/08/2013 RECORDED 07/31/19 13 9:54AM BY KENDRICK HIGHTOWER MA, ANNOTATI ON/ADDEN DUM Leslie Ervin MA null, [facility] 7 10:10:49 Sprain of spinal ligament 569430915 Completed 201212/08/2013 RECORDED 07/31/19 13 9:55AM BY KENDRICK HIGHTOWER MA, ANNOTATI ON/ADDEN DUM Liseth Hooks null, [facility] 6 09:16:08 Acute upper respirat ory infectio n 15774089 Completed 201212/09/2013 RECORDED 07/31/19 13 9:55AM BY KENDRICK HIGHTOWER MA, ANNOTATI ON/ADDEN DUM Leslie Ervin MA null, [facility] 7 10:11:22 Chest pain 42778977 Completed 201212/09/2013 RECORDED 07/31/19 13 9:54AM BY KENDRICK HIGHTOWER MA, ERMA ON/ADDEN DUM Liseth Jessee null, [facility] 6 09:16:08 Risk of exposure to communic able disease 038251352 Completed 201212/09/2013 RECORDED 07/31/19 13 9:55AM BY KENDRICK HIGHTOWER MA, ANNOTATI ON/ADDEN DUM Liseth Hooks null, [facility] 6 09:16:08 Dysuria 20294193 Completed 201212/09/2013 RECORDED 07/31/19 13 9:55AM BY KENDRICK HIGHTOWER MA, ANNOTATI ON/ADDEN DUM Liseth Hooks null, [facility] 6 09:16:08 Enthesop athy of knee 18696196 Completed 201212/09/2013 RECORDED 07/31/19 13 9:55AM BY KENDRICK HIGHTOWER MA, ANNOTATI ON/ADDEN DUM Liseth Hooks null, [facility] 6 09:16:08 Blood in urine 09210761 Completed 201212/09/2013 RECORDED 07/31/19 13 9:54AM BY KENDRICK HIGHTOWER MA, ANNOTATI ON/ADDEN DUM Liseth Hooks null, [facility] 6 09:16:08 Malaise and fatigue 393835244 Completed 201212/09/2013 RECORDED 07/31/19 13 9:55AM BY KENDRICK HIGHTOWER MA, JEREMIAHATI ON/ADDEN DUM Lisethakshat Hooks null, [facility] 6 09:16:08 Administ ration of diphther ia and tetanus vaccine Completed 201212/09/2013 RECORDED 07/31/19 13 9:55AM BY KENDRICK HIGHTOWER MA, ERMA ON/ADDEN DUM Liseth Hooks null, [facility] 6 09:16:09 Disorder of skin 93356744 Completed 201212/09/2013 RECORDED 07/31/19 13 9:55AM BY KENDRICK HIGHTOWER MA, JEREMIAHATI ON/ADDEN DUM Liseth Hooks null, [facility] 6 09:16:08 Adult health examinat ion Completed 201212/09/2013 RECORDED 07/31/19 13 9:54AM BY KENDRICK HIGHTOWER MA, JEREMIAHATI ON/ADDEN DUM Leslie Ervin MA null, [facility] 7 10:10:49 Sprain of spinal ligament 450202299 Completed 201212/09/2013 RECORDED 07/31/19 13 9:55AM BY KENDRICK HIGHTOWER MA, ANNOTATI ON/ADDEN DUM Liseth Hooks null, [facility] 6 09:16:08 Cellulit is of digit 81578257 Completed 201211/15/2013 IMPRESSI ON: [place]. NEW RX SENT; RECORDED 01/12/20 13 3:25PM BY KENDRICK HIGHTOWER MA, ANNOTATI ON/ADDEN DUM Liseth Hooksakshat regalado, [facility] 6 09:16:08 Cellulit is of digit 72426805 Completed 201212/08/2013 IMPRESSI ON: [place]. NEW RX SENT; RECORDED 01/12/20 13 3:25PM BY KENDRICK HIGHTOWER MA, ANNOTLISA ON/ADDEN DUM Liseth Hooks null, [facility] 6 09:16:08 Cellulit is of digit 28872248 Completed 201212/09/2013 IMPRESSI ON: [place]. NEW RX SENT; RECORDED 01/12/20 13 3:25PM BY KENDRICK HIGHTOWER MA, ANNOTATI ON/ADDEN DUM Liseth Hooksakshat regalado, [facility] 6 09:16:08 Conjunct ivitis 3541068 Completed 201211/15/2013 RECORDED 02/02/20 13 11:08AM BY INNA BURCH MA, ANNOTATI ON/ADDEN DUM Lisethakshat regalado [facility] 6 09:16:08 Benign prostati c hyperpla kaela 559337326 Active 2012 Lisethakshat regalado [facility] 6 09:16:09 Lower urinary tract symptoms 332342123 Completed 201205/16/2016 Leslie regalado [facility] 7 10:10:45 Adult health examinat ion Completed 201211/15/2013 RECORDED 02/02/20 13 11:07AM BY INNA BURCH MA, ANNOTATI ON/ADDEN DUM Leslie regalado [facility] 7 10:10:49 Hearing loss 54742097 Completed 201211/15/2013 RECORDED 02/02/20 13 11:08AM BY INNA BURCH MA, ANNOTATI ON/ADDEN DUM Leslie regalado, [facility] 7 10:10:31 Patient status finding 801047395 Completed 201211/15/2013 RECORDED 02/02/20 13 11:07AM BY INNA BURCH MA, ANNOTATI ON/ADDEN DUM Leslie regalado, [facility] 7 10:10:25 Acute upper respirat ory infectio n 29300031 Completed 201205/16/2016 IMPRESSI ON: NORMAL EXAM, REC. SYMPTOMA TIC TX, IBUPROFE N PRN PAIN. RTC IF PERSISTE NT OR WORSENIN G SYMPTOMS .; RECORDED 02/02/20 13 3:56PM BY BK PABLO PA-C, OFFICE VISIT Leslie regalado [facility] 7 10:11:22 Conjunct ivitis 9668220 Completed 201212/08/2013 RECORDED 02/02/20 13 11:08AM BY INNA BURCH MA, ANNOTATI ON/ADDEN DUM Liseth [place] regalado [facility] 6 09:16:08 Conjunct ivitis 9443039 Completed 201212/09/2013 RECORDED 02/02/20 13 11:08AM BY INNA BURCH MA, ANNOTATI ON/ADDEN DUM Lisethakshat regalado [facility] 6 09:16:08 Patient status finding [id number] Completed 201305/16/2016 Leslie regalado [facility] 7 10:10:25 Depressi ve disorder 89713151 Active 2013 Leslie regalado [facility] 7 09:13:24 Urinary tract obstruct ion 7365327 Completed 201308/22/2016 Leslie regalado [facility] 7 09:13:25 Hyperlip idemia 34174918 Active 2013 Liseth regalado [facility] 6 09:16:09 Palpitat ions 55625810 Completed 201305/16/2016 Leslie regalado [facility] 7 10:11:12 Sciatica 86681271 Completed 201305/16/2016 STORY: RIGHT LEG PAIN/SAMANTHA ERABLE.; RECORDED 11/15/19 3:03PM BY INNA BURCH MA, OFFICE VISIT Leslie regalado [facility] 7 10:10:28 Vitamin D deficien cy 80331715 Active 2013 Liseth regalado [facility] 6 09:16:09 Screenin g for malignan t neoplasm of colon Completed 201305/16/2016 Leslie regalado [facility] 7 10:10:53 Adult health examinat ion Completed 201305/16/2016 Leslie regalado [facility] 7 10:10:49 Hearing loss 08240272 Completed 201305/16/2016 IMPRESSI ON: AUDIOMET RY ABNORMAL , HE WILL SELF REFER TO ENT; RECORDED 11/15/19 14 11:01PM BY MATTHEW LOVE, OFFICE VISIT Leslie regalado [facility] 7 10:10:31 Skin sensatio n disturba ore 04980543 Completed 201305/16/2016 Leslie regalado [facility] 7 10:11:16 Administ ration of diphther ia, pertussi s, and tetanus vaccine Completed 201305/16/2016 Leslie regalado [facility] 7 10:11:06 Ganglion and cyst of synovium , tendon and bursa Active 2013 Leslie Ervin MA [facility] 7 09:13:16 Primary erectile dysfunct ion 140269889 Active 2016 Damian JimMaiakenna blum [facility] 7 09:06:12 Problem Notes None recorded. Procedures Surgical History Date Name Laterality Status Provider Name and Address Organization Details Recorded Time 9 excision of lipoma of back completed Gloria Money [facility] 04/22/2019 10:32:24 5 Colonoscopy completed Juancarlos Millard PA-C [address] [address], [place], [address], [facility] 05/31/2018 09:23:54 2 Prostate Surgery completed Lesliekristi Lorenzoisidro AGUILERA [facility] 05/16/2016 10:09:36 0 Cancer Surgery completed Leslie Ervin MA [facility] 05/16/2016 10:09:36 3 Orthopedic Surgery completed Lesliekristi Ervin MA [facility] 05/16/2016 10:09:36 Imaging Results None [...] REFILL REQUEST; THIS ORDER DISCONTI NUED PER [facility]. Not Available Not Available [...] Updated DateTime 8 182.88 cm 23.9 kg/m2 81254.9 6 g 99 % 99 % 72 /min 98.3 [degF] Leslie Ervin [facility] [place] 8 15:59:46 Date Recorded Body height Body mass index (BMI) Body weight Oxygen saturation Oxygen saturation in Arterial blood by Pulse oximetry Heart rate Body temperature Systolic And Diastolic Provider Name and Address Organization Details Last Updated DateTime 9 182.88 cm 24.4 kg/m2 00584.6 3 g 98 % 98 % 75 /min 97.1 [degF] 107/67 mm[Hg] Leslie Ervin [facility] 9 08:51:16 Date Recorded Body height Body weight Body mass index (BMI) Oxygen saturation Oxygen saturation in Arterial blood by Pulse oximetry Heart rate Body temperature Provider Name and Address Organization Details Last Updated DateTime 7 182.88 cm 47415.9 8 g 14.6 kg/m2 98 % 98 % 73 /min 98.1 [degF] [facility] 7 14:25:01 Date Recorded Body height Body mass index (BMI) Body weight Oxygen saturation Oxygen saturation in Arterial blood by Pulse oximetry Heart rate Body temperature Systolic And Diastolic Provider Name and Address Organization Details Last Updated DateTime 7 182.88 cm 23.4 kg/m2 65629.3 2 g 98 % 98 % 72 /min 97.4 [degF] 110/64 mm[Hg] [facility] 7 09:46:31 Date Recorded Body height Body mass index (BMI) Body weight Heart rate Body temperature Oxygen saturation Oxygen saturation in Arterial blood by Pulse oximetry Systolic And Diastolic Provider Name and Address Organization Details Last Updated DateTime 8 182.88 cm 24.4 kg/m2 39290.6 3 g 55 /min 97.1 [degF] 98 % 98 % 103/57 mm[Hg] Leny Herrera MA [facility] 8 09:15:56 Social History Question Answer Notes LastModified by Organizat ion Details LastModified Time Tobacco Smoking Status Never Smoker WILLY Alfredo [facility] 09/26/2014 16:35:57 Do You Have An Advance [...] Diseases N Hyperthyroidism N Breast Cancer N Hypothyroidism N Lung Disease N COPD N Depression Y Defects or Inherited Disease N Anesthesia Complications [...] Td (adult) 6 completed Liseth Hooks null, [facility] 07/31/2014 11:00:07 zoster live 6 completed Liseth regalado [facility] 10/23/2015 09:16:09 Influenza, split virus, quadrivalent, preservative 8 completed WILLY Alfredo, [facility] 04/09/2018 09:14:42 Influenza, split virus, trivalent, preservative 7 completed Not Available [facility] 11/15/2013 13:23:27 Hep B, adult 8 completed Not Available [facility] 11/15/2013 13:23:27 Hep B, adult 8 completed Not Available [facility] 11/15/2013 13:23:27 Hep B, adult 9 completed Not Available [facility] 11/15/2013 13:23:27 Novel [id number] , all formulations 0 completed Not Available [facility] 11/15/2013 13:23:27 Past Encounters Encounter ID Performer Location Encounter Start Date Encounter Closed Date Diagnosis/Indication Diagnosis SNOMED-CT Code Diagnosis ICD10 Code Diagnosis IMO Codes Diagnosis Note [id number] [facility] [id number] [facility] [place] [address] 12/18/2006 00:00:00 [id number] [facility] [facility] [id number] [facility] [place] [address] 03/18/2007 00:00:00 [id number] [employer] [facility] [id number] [facility] [place] [address] 04/07/2007 00:00:00 [id number] [facility] [facility] [id number] [facility] [place] [address] 08/07/2008 00:00:00 [id number] [employer] [facility] [id number] [facility] [place] [address] 10/18/2008 00:00:00 [id number] [facility] [facility] [id number] [facility] [place] [address] 09/06/2009 00:00:00 [id number] [employer] [facility] [id number] [facility] [place], [place] [address] 09/10/2010 00:00:00 [id number] [facility] [facility] [id number] [facility] [place], [place] [address] 07/14/2011 00:00:00 [id number] [facility] [facility] [id number] [facility] [place], [place] [address] 10/13/2011 00:00:00 [id number] [facility] [facility] [id number] [facility] [place], [place] [address] 07/30/2012 00:00:00 [id number] [facility] [facility] [id number] [facility] [place], [place] [address] 01/11/2013 00:00:00 [id number] [facility] [facility] [id number] [facility] [place] [address] 02/01/2013 00:00:00 [id number] [facility] [id number] [facility] [address] [facility] [place] [address] 11/14/2013 00:00:00 330506 GUNNAR Horowitz Main Office [address] [address] [place] [address] 09/26/2014 16:26:37 09/26/2014 17:03:32 Impacted cerumen [id number] May use debrox or OTC equivalent weekly to prevent buildup of wax. Otitis externa [id number] Marnie tis externa left ear, ofloxacin as prescribed x 7-10 days, avoid swimming/ getting water in ear until sx have resolved. 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 see Dr Stephens note from last year [id number] Juancarlos Millard PA-C Main Office [address] [address] [place] [address] 01/28/2017 09:33:38 01/28/2017 10:22:47 Cellulitis of forearm 62154282 L03.114 mild but getting progressiv goldie slightly worse at 1 month out - no h/o DM - also has some occ pus dc - ? mrsa - will rx c bactrim as dir, f/u if no better [id number] Damian blum MD Main Office [address] [address] [place] [address] 05/28/2017 15:53:32 05/28/2017 16:42:45 Adult health examination 369751004 Z00.00 Hyperlipidemia 61543451 E78.5 Lipoma of back 847119334 D17.1 [id number] Clarke Estevez MD Main Office [address] [address] [place] [address] 04/09/2018 08:52:12 04/09/2018 09:49:35 Cellulitis and abscess of buttock 991753585 L02.31 Will cover for enteric and skin devan. Pt advised to call with any problems on abx or if lesion does not drain spontaneou sly with abx and warm compress. [id number] Clarke Estevez MD Main Office [address] [facility] [address] [facility] [place] [address] 05/31/2018 08:39:00 05/31/2018 09:43:53 Adult health examination 990501766 Z00.00 rev labs c pt, he got a flu shot thru his pharmacy Primary er ectile dysfunction 251732239 N52.9 pt would like to try generic cialis Lipoma of back 685852002 D17.1 pt never went last yr - will re-try Impaired f asting glycemia 570763154 R73.01 no evidence of pre-dm c a1c 5.5 Hyperlipidemia 40562682 E78.5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
--- OUTSIDE RECORDS SUMMARY | 2025-03-08 14:44 | XMS_ITS | Encounter Summary ---
Author Organization [facility] Address [address] [place] [address] Phone Care Team Providers Care Shoe Sprayer Name Role Phone Khadra Romo MD Primary Care Provider [phone] John Chopra MD Unavailable [phone] Lenny Pendleton MD Unavailable Encounter Details Date Type Department Care Team (Late st Contact Info) Description 02/27/2025 Orders Only [facility] Medical [facility] Family Medicine [address] [place] [address] [place] [address] Provider, MD Ramona [place] [address] Social History Tobacco Use Types [...] is your housing situation today? I have miose sing 05/28/2024 How many times have you [...] Appointment [facility] [address] [place], [place] [phone] Yuliana Givens RN [address] [place] [address] 03/13/2025 Appointment [facility] [address] [place], [place] [phone] Yuliana Givens RN [address] [place] [address] 03/15/2025 3:00 PM EST Office Visit [facility] Department of Neurology [address] [place] [address], 8th Floor, [address] [place] [address] Luanne Rodríguez MD [facility] [address] [place] [address] [email or web address] 03/16/2025 2:00 AM EST Appointment [facility] [address] [place] [address] Yuliana Givens RN [address] [place] [address] 04/10/2025 11:00 AM EST Office Visit [facility] Neurology Neuromuscular [address], [address] [place] [address] Lenny Pendleton MD [address] [facility] [address] [place] [address] [email or web address] 04/28/2025 1:00 AM EST Appointment [facility] [address] [place], [place] [phone] Yuliana Givens RN [address] [place] [address] 06/09/2025 1:00 PM EST Office Visit [facility] Department of Neurology [address] [facility], 8th Floor, [address] [place] [address] John Chopra MD 55 [facility] [address] [place] [phone] [email or web address] 07/21/2025 8:40 AM EDT Office Visit [facility] [address] [facility] [address] [place] [address] Khadra Romo MD [address] [facility] [address] [place] [address] [email or web address] 08/25/2025 11:00 AM EDT Office Visit [facility] Cardiology [facility] [address] [facility], [address] [place] [address] Clementine Brower MD [address] [facility], [address] [place] [address] [email or web address] documented as of this encounter Procedures Procedure Name Priority Date/Time Associated Diagnosis Comments OUTSIDE IMAGING Routine 02/27/2025 11:38 AM EDT OUTSIDE IMAGING Routine 02/24/2025 10:10 AM EDT OUTSIDE PROCEDURE Routine 02/24/2025 10: 07 AM EDT OUTSIDE IMAGING Routine 02/23/2025 11:37 AM EDT documented in this encounter Results * Outside Imaging Report Only (02/27/2025 11:38 AM EDT) us Historical Provider MD NAVAS XR CHEST Final Res ult * Outside Imaging Report Only (02/24/2025 10:10 AM EDT) us Historical Provider IMG XR CHEST Final Res ult * Outside Procedure (02/24/2025 10:07 AM EDT) us Historical Provider PROCEDURE/MINOR SURGICAL PERFORMABLES Final Result * Outside Imaging Report Only (02/23/2025 11:37 AM EDT) us Historical Provider IMG XR CHEST Final Res ult documented in this encounter Visit Diagnoses Not on filedocumented in this encounter Additional Health Concerns Assessment Noted Time PHQ-9 Depression Total Score: 12 024 3:46 PM EST PHQ-2 Depression Total Score: 1 06/28/19 25 2:08 PM EST documented as of this encounter Care Teams Shoe Sprayer Relationship Specialty Start Date End Date Khadra Romo MD [address] [facility] [address] [place] [address] [email or web address] PCP - General Family Medicine 06/12/21 John Chopra MD 55 [facility] [address] [place] [phone] [email or web address] [email or web address] 06/17/23 Lenny Pendleton MD 165 [facility] [address] [place] [address] [email or web address] [email or web address] 06/17/23 documented as of this encounter Additional Source Comments The information contained in this document represents components of the legal health record. It is not the complete legal health record.[facility]
--- OUTSIDE RECORDS SUMMARY | 2025-03-08 14:44 | XMS_ITS | Encounter Summary ---
Author Organization [facility] Address [address] [place] [address] Phone Care Team Providers Care Engineering Technician Name Role Phone Khadra Romo MD Primary Care Provider [phone] John Chopra MD Unavailable [phone] Lenny Pendleton MD Unavailable Reason for Visit * Reason Onset Date Comments Inpatient Admission 02/23/2025 Encounter Details Date Type Department Care Team (Late st Contact Info) Description 02/23/2025 Telephone [facility] [address] [facility] [address] [place] [address] Khadra Romo MD [address] [facility] [address] [place] [address] [email or web address] Inpatient Admission Social History Tobacco Use Types Packs/Day Years [...] Progress Notes * Bev Park LPN - 03/01/2025 11:30 AM EDT Discharge summary received, call to Chilo to complete TCM call. He is just in the middle of a couplethings and will call back later. * Bev Park LPN - 02/28/2025 9:38 AM EDT S/W Rachel and Chilo. Hoping to be discharged from [facility] today. Had procedures to drain pericardial effusions and is still in A flutter. Has been told he needs an ablation in about 4 weeks. He is hoping to be able to do this in [place]. Discussed that we would have to do a new referral specifically for the A flutter and would need the discharge notes from [facility] to do so. Scheduled a TCM with Dr. Romo for 03/03. He will let us know when he is discharged so that we can request D/C note and summary. * Khadra Romo MD - 02/23/2025 2:01 PM EDT Good morning, Merly Chilo was admittd to [facility] again on 02/21 for acute weakness and hypotension with a brief episode of memory loss. Please check in with him or Rachel in the next couple of days about discharge timing so we can arrange a TCM as needed. Thank you documented in this encounter Plan of Treatment Upcoming Encounters Date Type Department Care Team (Late st Contact Info) Description 03/09/2025 1:00 AM EST Appointment [facility] [address] [place], [place] [phone] Yuliana Givens RN [address] [place] [address] 03/13/2025 Appointment [facility] [address] [place], [place] [phone] Yuliana Givens RN [address] [place] [address] 03/15/2025 3:00 PM EST Office Visit [facility] [place] Department of Neurology [address] [place] [address], 8th Floor, [address] [place] [address] Luanne Rodríguez MD 55 [facility] [address] [place] [address] [email or web address] 03/16/2025 2:00 AM EST Appointment [facility] [address] [place], [place] [phone] Yuliana Givens RN [address] [place] [address] 04/10/2025 11:00 AM EST Office Visit [facility] [place] Neurology Neuromuscular [address], [address] [place] [address] Lenny Pendleton MD [address] [place] [address] [address] [place] [address] [email or web address] 04/28/2025 1:00 AM EST Appointment [facility] [address] [place], [place] [phone] Yuliana Givens RN [address] [place] [address] 06/09/2025 1:00 PM EST Office Visit [facility] [place] Department of Neurology [address] [facility], 8th Floor, [address] [place] [address] John Chopra MD [address] [place] [address] [address] [place] [phone] [email or web address] 07/21/2025 8:40 AM EDT Office Visit [facility] [place] [facility] [address] [facility] [address] [place] [address] Khadra Romo MD 15 [facility] [address] [place] [address] 08/25/2025 11:00 AM EDT Office Visit [facility] [place] Cardiology [facility] [address] [facility], [address] [place] [address] Clementine Brower MD [address], [address] [place] [address] [email or web address] documented as of this encounter Visit Diagnoses Not on filedocumented in this encounter Additional Health Concerns Assessment Noted Time PHQ-9 Depression Total Score: 12 06/17/ 024 3:46 PM EST PHQ-2 Depression Total Score: 1 06/28/19 25 2:08 PM EST documented as of this encounter Care Teams Engineering Technician Relationship Specialty Start Date End Date Khadra Romo MD [address] [facility] [address] [place] [address] [email or web address] PCP - General Family Medicine 06/12/21 John Chopra MD [address] [place] [address] [address] [place] [phone] [email or web address] 06/17/23 Lenny Pendleton MD [address] [facility] [address] [place] [address] [email or web address] 06/17/23 documented as of this encounter Additional Source Comments The information contained in this document represents components of the legal health record. It is not the complete legal health record.[facility]
== END 2025-03-08 12:01 | disposition home or self-care (01) ==
LOC: HO.LAB 12:00
PROVIDERS: Family Medicine; PCP Family Medicine; Visit Provider Internal Medicine
DX: I31.39 Other pericardial effusion (noninflammatory) (principal); I31.9 Disease of pericardium, unspecified; I48.92 Unspecified atrial flutter
CPT/HCPCS: 36415; 80053; 80162; 85027; 85652; 86140

== ENCOUNTER 2025-03-20 13:36 | Outpatient (AMB) | payer MEDICARE, SELFPAY ==
[2025-03-20 13:43] VITALS: BP 112/68; PULSE 87; BMI 23.0
--- NOTE | 2025-03-20 13:43 | MHC.OFFVIS ---
Vital Signs 03/20/25 13:43 Height 6 ft Weight 169 lb 12.095 oz BMI 23.0 BP 112/68 Blood Pressure Location Lt brachial Position Sitting Pulse 87 Pulse Source Monitor Intake Visit Reasons: 2 week f/up [facility] [place] d/c Allergies No Known Allergies Allergy (Verified 02/20/25 11:09) Medication List - Last Reconciled 03/20/25 by Michael Osorio MD apixaban 5 mg PO BID colchicine 0.6 mg PO DAILY digoxin 0.25 mg See Protocol PO DAILY 90 days lamotrigine (Lamictal) 200 mg PO BID lamotrigine 100 mg PO DAILY metoprolol tartrate 12.5 mg (1/2 x 25 mg) PO BID 90 days ropinirole 2 mg PO BEDTIME HPI Comments Details: Chilo returns for follow-up. Recently seen in the hospital in consultation. He has had many issues including pericarditis, pericardial effusion requiring drainage, atrial flutter with rapid rate, stroke. Initial admission was for a stroke and per neurology notes, small left frontal lobe CVA of undetermined etiology. In that setting, he had a short run of atrial flutter after which she was put on anticoagulation. However, just about the same time he also had concurrent pericarditis. Then readmitted for atrial flutter with rapid rate. At that time, he is also found to have enlarging pericardial effusion and that needed drainage. With regard to the atrial flutter, he was just maintained on rate control. There was a brief hold of anticoagulation but he was put back on it. Currently, he states that he is generally better. His heart rates seem much better controlled. Overall, improving gradually. To consolidate his medical care, he is planning on moving to [place] in the next couple of months. [facility] Medical History Recent cerebrovascular accident Chronic pericardial effusion Acute pericardial effusion Numbness and tingling Pericarditis Peripheral demyelinating neuropathy JACOB positive Orthostatic hypertension Restless legs syndrome CVA (cerebral vascular accident) Cognitive disorder Back pain Anxiety Depression Hyperlipidemia Non-melanoma skin cancer Surgical History H/O cervical spine surgery History of ear surgery Family History Father Myocardial infarction Family/Other Cancer Family/Other Breast cancer Mother Skin cancer Social History Household Members: Spouse Housing: House Are you a primary rental boats caretaker to a significant other at home: No Do you presently have visiting nurse or other home services: No Alcohol intake: current Alcohol intake frequency: holidays/special occasions only Alcohol type: beer and hard liquor Comment: with patient, assisting Patient Tobacco Use Status: Never used Tobacco e-Cigarette/Vaping Use: Never Used Advance Directives Date on File: 02/07/25 service: No Current occupational status: employed 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 Review of Systems Const Reports fatigue and Denies weakness ENT Reports dizziness Card Denies chest pain, Denies chest pain with activity, Reports syncope, Denies rapid heart rate, Denies pedal edema, Denies edema, Denies leg edema, Denies lightheadedness, Denies palpitations, Denies dyspnea, Denies dyspnea on exertion and Denies orthopnea Resp Denies cough, Denies dyspnea and Denies dyspnea on exertion GI Denies hematochezia and Denies change in stool character Musc Denies abnormal gait, Denies muscle cramps, Denies muscle weakness, Denies numbness, Denies radiating pain into limb and Denies tingling Neuro Denies abnormal gait, Reports dizziness, Reports syncope, Denies numbness, Denies tingling and Denies weakness Endo Reports fatigue and Denies palpitations Physical Exam Vital Signs: Last Vital Signs Pulse 87 03/20/25 13:43 BP 112/68 03/20/25 13:43 BMI result Body Mass Index 23.0 Const General: comfortable and no acute distress Orientation/consciousness: patient oriented x3 HEENT Other: Unremarkable Head: Yes normal to inspection Neck Neck: Yes normal visual inspection Chest Chest palpation & inspection: normal inspection of the chest Resp Auscultation: clear to auscultation bilaterally Cardio Palpation: normal PMI Heart sounds: S1 normal heart sound present, S2 normal heart sound present, no gallops, no murmurs and no rubs GI Palpation (GI): Soft to palpation Back/Spine/Pelvis Other: unremarkable Skin General skin exam: no rashes or lesions noted Neuro General: patient oriented x3 Extrem General: Yes normal to inspection Psych Mental Status: mental status grossly normal Office Procedures EKG Details: EKG showed atrial flutter at 86/Min. [id number], Complete Assessment & Plan Assessment & Plan (1) Atrial flutter: Code(s): I48.92 - Unspecified atrial flutter Category: Medical Qualifiers: Atrial flutter type: typical Qualified Code(s): I48.3 - Typical atrial flutter Plan: EKG today shows rate controlled atrial flutter. Await EP consultation later this week. He will need flutter ablation. He is currently on metoprolol/digoxin. Digoxin can be stopped after the ablation. With regard to metoprolol, probably stop as well as he also runs low blood pressures. With regard to anticoagulation, he is currently on Eliquis but apparently the cost is quite high but Xarelto is much cheaper through his insurance. Hence we can switch. (2) Pericardial effusion: Code(s): I31.39 - Other pericardial effusion (noninflammatory) Category: Medical Plan: Status post drainage. In the last echocardiogram, no significant residual pericardial effusion. He can take colchicine for about 3 months total and then stopped. Plan Total time spent including review of data, counseling, documentation, coordination of care-32 minutes. Medications: New rivaroxaban (Xarelto) must administer with evening meal 20 mg PO QPM 90 tabs 3RF Discontinued apixaban Discontinued Reason: Doctor's Order 5 mg PO BID 180 tabs 3RF Coding Level of Care Code Est Pt Level 4 (63589) Complex EM visit Add On G2211 Diagnoses Atrial flutter I48.3 Atrial flutter type: typical Pericardial effusion I31.39 CPT Codes EKG - CPT: 69345-Buotgfcfenhdwswhl, Complete ([id number])
--- OUTSIDE RECORDS SUMMARY | 2025-03-21 02:42 | XMS_ITS | Data Portability ---
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 Procedures None recorded. Surgeries None recorded. Imaging None recorded. Medication Orders Keflex 500 mg capsule 2018 019 [id number], [address], [place], [phone], 19:43:24 cephalexin 500 mg capsule 2018 019 [id number], [address], [place], [phone], 19:43:14 Patient TargetsNo targets recorded. Patient Instructions Encounter Date Encounter Id Patient Instructions Last Modified By Organization Details Last Modified Time 01/12/2019 [id number] YOU WERE SEEN FOR WOUND ON YOUR TOE THE WOUND IS INFECTED ANTIBIOTICS WERE SEND TO YOUR PHARMACY, PLEASE TAKE PRESCRIBED CONTINUE WARM SOAKS EVERY NIGHT AND APPLY BACITRACIN FOLLOW UP WITH YOUR PRIMARY CARE DOCTOR NEEDED SEEK IMMEDIATE MEDICAL ATTENTION OR CALL 911 IF YOU DEVELOP ANY NEW CONCERNING SYMPTOMS Thank you for your visit with [facility] today. You were seen today for treatment [...] condition between 8am-10pm, please call [facility] at [phone] to help navigate your care. [email or web address] Not [...] Go To The Location Of Their Choice, [id number] 01/15/2019 11:21:29 01/13/2001/15/2019 cultu re, super ficia [...] Artery Disease N Cancer N Stroke N Depression Y COPD N Asthma N High Cholesterol Y Pulmonary Embolism N Hypertension N Kidney Disease N Past Encounters Encounter ID Performer Location Encounter Start Date Encounter Closed Date Diagnosis/Indication Diagnosis SNOMED-CT Code Diagnosis ICD10 Code Diagnosis IMO Codes Diagnosis Note [id number] MATTHEW VENEGAS [facility] [address] [place] [address] 01/12/2019 19:26:41 01/13/2019 01:55:49 Paronychia of toe 623643820 L03.039 Wound cellulitis 3527442 03 L03.90 Health Concerns Section Related Observation LastModified by Organization Detai ls LastModified Time None Recorded Concern Status LastModified by Organization Details LastModified Time None Recorded Advance Directives Directive None Recorded Payers Insurance Date Sequence Insurance Name Policy Number Policy Tellez Covered Member ID Tellez Member ID Guarantor Name 01/13/2019 1 [facility] [id number] Chilo Lee [id number] Chilomurtaza Lee 01/10/2019 1 *SELF PAY* Chilo Lee [id number] Chilomurtaza Lee 01/13/2019 1 [facility] [id number] Chilo Lee [id number] Chilo Lee Notes Date Note Type Note [...] depression, HLD MATTHEW VENEGAS [address], [place], [address], [place] [facility] 01/13/2019 01:50:39
--- OUTSIDE RECORDS SUMMARY | 2025-03-21 02:43 | XMS_ITS | Data Portability ---
Author Organization MATTHEW [facility] [id number] Address [address] [place] [address] Assessment No assessment recorded. Plan of Treatment [...] By Organization Details Last Modified Time 04/19/2022 [id number] earwax blockage: care instructions [email or web address] 3 Not [...] and Address Organization Details Recorded Time Hyperlipidemia 68757654 Active 2021 MATTHEW Varela [facility] 15:42:16 Depressive disorder 61249351 Active 2021 MATTHEW Varela [facility] [...] Updated DateTime 2 182.88 cm 23.6 kg/m2 45202.0 7 g 18 /min 0 100 % 100 % 54 /min 98.8 [degF] 132/70 mm[Hg] NASIR HANCOCKRON PA - [facility] 15:45:46 Social History Question Answer Notes LastModified by Henable Details LastModified Time Tobacco Smoking Status Never Smoker NASIR HANCOCKRON regalado PA - [facility] 04/19/2022 15:44:21 Have You Recently Traveled Abroad? No Information not available 04/19/2022 Sex: Unknown Functional Status Question Answer Note LastModified by Henable Details LastModified Time Do you use any [...] PA - [facility] 04/19/2022 15:41:42 Novel [id number], all formulations 0 completed NASIR MACHNACZ null, [...] ICD10 Code Diagnosis IMO Codes Diagnosis Note [id number] [address] [address] 08/16/2016 16:58:42 08/16/2016 18:27:26 [id number] Eug[place] [address] [facility] [address] [address] 04/19/2022 15:23:51 04/19/2022 16:28:37 Impacted cerumen of bilateral ears [id number] 061226 H61.23 Health Concerns Section Related Observation LastModified by Organization Detai ls LastModified Time None Recorded Concern Status LastModified by Organization Details LastModified Time None Recorded Advance Directives Directive None Recorded Payers Insurance Date Sequence Insurance Name Policy Number Policy Tellez Covered Member ID Tellez Member ID Guarantor Name 04/19/2022 1 [employer] [place] [id number] Danny Lee [id number] Danny Lee 04/19/2022 1 [facility] - MEDICARE PREFERRED (MEDICARE REPLACEMENT HMO) [facility] Dannymurtaza Lee [id number] Danny Lee Notes Date Note Type Note [...] to chew, andoften has wax accumulation. Eugenia Baerden MD [address] [place] [address] [place], [place], [address], [place] - [facility] 04/19/2022 16:36:46
--- OUTSIDE RECORDS SUMMARY | 2025-03-21 02:43 | XMS_ITS | Data Portability ---
Author Organization [facility], Main Office Address [address] [place] [address] Care Team Providers Care Bakery Manager Name Role Phone THANIA RODRIGUEZ Crab Picker JUANCARLOS MILLARD Primary Care Provider [phone] KAREEM HERNANDEZ General Surgeon [phone] Assessment No assessment recorded. Plan of Treatment Reminders Order Date Submit Date Provider Last Modified By Organization Details Last Modified Time Details Appointments None recorded. Lab lipid panel, serum 2017 018 [id number], [address] [place], [address], 8 22:33:50 ALT (alanine aminotrans ferase), serum or plasma 2017 018 [id number], [address] [place], [address], 8 22:33:47 AST/SGOT (aspartate aminotrans ferase), serum or plasma 2017 018 [id number], [address] [place], [address], 8 22:33:48 BMP, serum or plasma 2017 018 [id number], [address] [place], [address], 8 22:33:49 Referral general surgeon referral 2018 019 martina [facility], [address], [address], [place], [address], 9 16:06:43 general surgeon referral - pt wants lipoma removed from upper back 2017 018 rosanne Cronin MD, [address], [address], [place], [address], 8 15:30:07 general surgeon referral - pt has lipoma on left interspina l area and wants it removed 2016 017 rosanne Cronin MD, [address], [address], [place], [address], 7 10:01:34 neurologis t referral - pt notes worsening sx in terms of plantar feet sensitivit y/ and he has noted balance problems/ pt wants to know if he has any other options like Phys tx 2016 017 martina Stephens MD, [address] [place] [address] Dr, [facility] [address], [address], 7 19:42:45 Procedures None recorded. Surgeries None recorded. Imaging None recorded. Medication Orders t[facility]il 20 mg tablet 2018 019 [id number], [address], [place], [id number], 9 09:37:27 lovastatin 20 mg tablet 2018 019 [id number], [address], [place], [id number], 9 09:37:27 Bactrim DS 800 mg-160 mg tablet 2017 018 [id number], [address], [place], [id number], 9 08:43:15 Bactrim DS 800 mg-160 mg tablet 2016 017 [facility] 3, [address] [place] [address], [address], 9 08:43:15 Patient TargetsNo targets recorded. Patient Instructions Encounter Date Encounter Id Patient Instructions Last Modified By Organization Details Last Modified Time 08/22/2016 [id number] Medications (OTC, herbal therapies, supplements) reviewed and reconciled with patient and or caregiver, including potential side effects, drug interactions, instructions, and the consequences of not taking medication. Reviewed potential barriers to medication adherence, such as side effects from medication or cost of medication. claritza Not available 08/22/2016 15:01:07 01/28/2017 [id number] rec. take probiotic supplement or latvian yogurt while on abx pmadden Not available 01/28/2017 10:16:38 Follow up if no improvement or if symptoms worsen. I have reviewed the note and agree with the assessment and plan of care. arslan Not available 01/28/2017 10:39:29 04/09/2018 [id number] sitz bath info awychowski Not available 04/09/2018 09:50:36 skin abscess: care instructions awychowski Not available 04/09/2018 09:50:36 cellulitis: care instructions awychowski Not available 04/09/2018 09:50:36 Please apply a warm compress for 20min 4 times daily. awychowski Not available 04/09/2018 09:53:48 05/31/2018 [id number] Medications (OTC, herbal therapies, supplements) reviewed and [...] CIENT IN VITAM IN D. Refer ence: [facility] Data Brief : No.59 July: Vitam in [...] Go To The Location Of Their Choice, [id number] 05/25/2018 17:13:35 05/25/1905/25/2018 lipid panel , serum [...] cient in vitam in D. Refer ence: [facility] Data Brief : No.59 July: Vitam in D Statu s: Unite d State s: 20002005 As of , Vitam in D, 25-Hy droxy assay has been [facility]. In some unm cancer centera nces, the new assay may yield a highe r value (up to 15% incre ase) in dinorah rison to the old assay . These incre ases would mainl y be notic eable at value s of great er than 50 ng/ml . Not Available [facility] (Centralized Electronic Ordering - All Locations) Patient Can Go To The Location Of Their Choice, [id number] 05/25/2018 17:17:43 05/25/1905/25/2018 HbA1c (hemo globi n [...] Go To The Location Of Their Choice, [address] 05/25/2018 20:55:44 05/25/1905/26/2018 hepat itis C virus Ab, serum anti-hepatit is C NEGAT ANAM Refer ence range : Negat anam This test was perfo rmed on the Abbot t Archi tect immun oassa y syste m. Not Available [facility] (Centralized Electronic Ordering - All Locations) Patient Can Go To The Location Of Their Choice, [id number] 05/26/2018 08:07:52 08/26/19 17 08/16/2016 XR, cervi kerry spine No observ ation record ed. [email or web address] [facility] [address] , [place], [address], 08/25/2016 12:27:16 Result Notes None recorded. 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 Liseth regalado [facility] 6 09:16:08 Infectiv e hepatiti s immuniza tion Completed 200811/15/2013 RECORDED 05/24/19 09 9:24AM BY DAYNA RIOS, NURSE VISIT Liseth regalado [facility] 6 09:16:09 Infectiv e hepatiti s immuniza tion Completed 200812/08/2013 RECORDED 05/24/19 09 9:24AM BY DAYNA RIOS, NURSE VISIT Liseth regalado [facility] 6 09:16:09 Infectiv e hepatiti s immuniza tion Completed 200812/09/2013 RECORDED 05/24/19 09 9:24AM BY DAYNA ROIS, NURSE VISIT Liseth regalado [facility] 6 09:16:09 Influenz a vaccine needed [id number] 06 Completed 200811/15/2013 RECORDED 10/19/19 09 10:09AM BY RICKI GORDILLO MD, ANNOTATI ON/ADDEN DUM Liseth regalado [facility] 6 09:16:08 General examinat ion of patient Completed 200811/15/2013 RECORDED 10/19/19 09 10:09AM BY RICKI GORDILLO MD, ANNOTATI ON/ADDEN DUM Liseth Hooks null, [facility] 6 09:16:09 Influenz a vaccine needed 60544493478 06 Completed 200812/08/2013 RECORDED 10/19/19 09 10:09AM BY RICKI GORDILLO MD, ANNOTATI ON/ADDEN DUM Liseth Hooks null, [facility] 6 09:16:08 General examinat ion of patient Completed 200812/08/2013 RECORDED 10/19/19 09 10:09AM BY RICKI GORDILLO MD, ANNOTATI ON/ADDEN DUM Liseth Hooks null, [facility] 6 09:16:09 Screenin g for malignan t neoplasm of colon Completed 200812/08/2013 RECORDED 10/19/19 09 10:09AM BY RICKI GORDILLO MD, ANNOTATI ON/ADDEN DUM Leslie Ervin [facility] 7 10:10:53 Influenz a vaccine needed [id number] 06 Completed 200812/09/2013 RECORDED 10/19/19 09 10:09AM BY RICKI GORDILLO MD, ANNOTATI ON/ADDEN DUM Liseth Hooks null, [facility] 6 09:16:09 General examinat ion of patient Completed 200812/09/2013 RECORDED 10/19/19 09 10:09AM BY RICKI GORDILLO MD, ANNOTATI ON/ADDEN DUM Liseth Hooks null, [facility] 6 09:16:09 Screenin g for malignan t neoplasm of colon Completed 200812/09/2013 RECORDED 10/19/19 09 10:09AM BY RICKI GORDILLO MD, ANNOTATI ON/ADDEN DUM Leslie Ervin MA null, [facility] 7 10:10:53 Hyperlip idemia 58140043 Completed 200911/15/2013 RECORDED 09/07/19 10 1:34PM BY ELIANE RIOS MA, ANNOTATI ON/ADDEN DUM Liseth Hooks null, [facility] 6 09:16:08 Acute upper respirat ory infectio n 05103237 Completed 201211/15/2013 RECORDED 07/31/19 13 9:55AM BY KENDRICK HIGHTOWER MA, ANNOTATI ON/ADDEN DUM Leslie Ervin MA null, [facility] 7 10:11:22 Chest pain 75532781 Completed 201211/15/2013 RECORDED 07/31/19 13 9:54AM BY KENDRICK HIGHTOWER MA, ANNOTATI ON/ADDEN DUM Liseth Hooks null, [facility] 6 09:16:08 Screenin g for malignan t neoplasm of colon Completed 201211/15/2013 RECORDED 07/31/19 13 9:55AM BY KENDRICK HIGHTOWER MA, ANNOTATI ON/ADDEN DUM Leslie Ervin MA null, [facility] 7 10:10:53 Risk of exposure to communic able disease 593777527 Completed 201211/15/2013 RECORDED 07/31/19 13 9:55AM BY KENDRICK HIGHTOWER MA, ANNOTLISA ON/ADDEN DUM Liseth Hooks null, [facility] 6 09:16:08 Dysuria 36705366 Completed 201211/15/2013 RECORDED 07/31/19 13 9:55AM BY KENDRICK HIGHTOWER MA, ANNOTATI ON/ADDEN DUM Liseth Hooks null, [facility] 6 09:16:08 Enthesop athy of knee 59648730 Completed 201211/15/2013 RECORDED 07/31/19 13 9:55AM BY KENDRICK HIGHTOWER MA, ANNOTATI ON/ADDEN DUM Liseth Hooks null, [facility] 6 09:16:08 Blood in urine 72972610 Completed 201211/15/2013 RECORDED 07/31/19 13 9:54AM BY KENDRICK HIGHTOWER MA, ANNOTATI ON/ADDEN DUM Liseth Hooks null, [facility] 6 09:16:08 Malaise and fatigue 487587944 Completed 201211/15/2013 RECORDED 07/31/19 13 9:55AM BY KENDRICK HIGHTOWER MA, ANNOTATI ON/ADDEN DUM Liseth Hooks null, [facility] 6 09:16:08 Administ ration of diphther ia and tetanus vaccine Completed 201211/15/2013 RECORDED 07/31/19 13 9:55AM BY KENDRICK HIGHTOWER MA, ANNOTATI ON/ADDEN DUM Liseth Hooks null, [facility] 6 09:16:09 Disorder of skin 30225391 Completed 201211/15/2013 RECORDED 07/31/19 13 9:55AM BY KENDRICK HIGHTOWER MA, ANNOTATI ON/ADDEN DUM Liseth Hooks null, [facility] 6 09:16:08 Sprain of spinal ligament 735713134 Completed 201211/15/2013 RECORDED 07/31/19 13 9:55AM BY KENDRICK HIGHTOWER MA, ANNOTATI ON/ADDEN DUM Liseth Hooks null, [facility] 6 09:16:08 Acute upper respirat ory infectio n 17252932 Completed 201212/08/2013 RECORDED 07/31/19 13 9:55AM BY KENDRICK HIGHTOWER MA, ANNOTATI ON/ADDEN DUM Leslie Bigby WILLY null, [facility] 7 10:11:22 Chest pain 00239100 Completed 201212/08/2013 RECORDED 07/31/19 13 9:54AM BY KENDRICK HIGHTOWER MA, ANNOTATI ON/ADDEN DUM Liseth Hooks null, [facility] 6 09:16:08 Risk of exposure to communic able disease 931152154 Completed 201212/08/2013 RECORDED 07/31/19 13 9:55AM BY KENDRICK HIGHTOWER MA, JEREMIAHATI ON/ADDEN DUM Liseth Hooks null, [facility] 6 09:16:08 Dysuria 82107160 Completed 201212/08/2013 RECORDED 07/31/19 13 9:55AM BY KENDRICK HIGHTOWER MA, ANNOTATI ON/ADDEN DUM Liseth Hooks null, [facility] 6 09:16:08 Enthesop athy of knee 44713622 Completed 201212/08/2013 RECORDED 07/31/19 13 9:55AM BY KENDRICK HIGHTOWER MA, ERMA ON/ADDEN DUM Liseth Hooks null, [facility] 6 09:16:08 Blood in urine 19945491 Completed 201212/08/2013 RECORDED 07/31/19 13 9:54AM BY KENDRICK HIGHTOWER MA, ERMA ON/ADDEN DUM Liseth Hooks null, [facility] 6 09:16:08 Malaise and fatigue 517144094 Completed 201212/08/2013 RECORDED 07/31/19 13 9:55AM BY KENDRICK HIGHTOWER MA, ERMA ON/ADDEN DUM Liseth Hooks null, [facility] 6 09:16:08 Administ ration of diphther ia and tetanus vaccine Completed 201212/08/2013 RECORDED 07/31/19 13 9:55AM BY KENDRICK HIGHTOWER MA, ERMA ON/ADDEN DUM Liseth Hooks null, [facility] 6 09:16:09 Disorder of skin 97203170 Completed 201212/08/2013 RECORDED 07/31/19 13 9:55AM BY KENDRICK HIGHTOWER MA, ANNOTATI ON/ADDEN DUM Liseth Hooks null, [facility] 6 09:16:08 Adult health examinat ion Completed 201212/08/2013 RECORDED 07/31/19 13 9:54AM BY KENDRICK HIGHTOWER MA, ANNOTATI ON/ADDEN DUM Leslie Ervin MA null, [facility] 7 10:10:49 Sprain of spinal ligament 387313934 Completed 201212/08/2013 RECORDED 07/31/19 13 9:55AM BY KENDRICK HIGHTOWER MA, ANNOTATI ON/ADDEN DUM Liseth Hooks null, [facility] 6 09:16:08 Acute upper respirat ory infectio n 88154717 Completed 201212/09/2013 RECORDED 07/31/19 13 9:55AM BY KENDRICK HIGHTOWER MA, ANNOTATI ON/ADDEN DUM Leslie Ervin MA null, [facility] 7 10:11:22 Chest pain 99630005 Completed 201212/09/2013 RECORDED 07/31/19 13 9:54AM BY KENDRICK HIGHTOWER MA, ERMA ON/ADDEN DUM Liseth Jessee null, [facility] 6 09:16:08 Risk of exposure to communic able disease 714737502 Completed 201212/09/2013 RECORDED 07/31/19 13 9:55AM BY KENDRICK HIGHTOWER MA, ANNOTATI ON/ADDEN DUM Liseth Hooks null, [facility] 6 09:16:08 Dysuria 50706324 Completed 201212/09/2013 RECORDED 07/31/19 13 9:55AM BY KENDRICK HIGHTOWER MA, ANNOTATI ON/ADDEN DUM Liseth Hooks null, [facility] 6 09:16:08 Enthesop athy of knee 16945061 Completed 201212/09/2013 RECORDED 07/31/19 13 9:55AM BY KENDRICK HIGHTOWER MA, ANNOTATI ON/ADDEN DUM Liseth Hooks null, [facility] 6 09:16:08 Blood in urine 92552473 Completed 201212/09/2013 RECORDED 07/31/19 13 9:54AM BY KENDRICK HIGHTOWER MA, ANNOTATI ON/ADDEN DUM Liseth Hooks null, [facility] 6 09:16:08 Malaise and fatigue 108691442 Completed 201212/09/2013 RECORDED 07/31/19 13 9:55AM BY KENDRICK HIGHTOWER MA, JEREMIAHATI ON/ADDEN DUM Lisethakshat Hooks null, [facility] 6 09:16:08 Administ ration of diphther ia and tetanus vaccine Completed 201212/09/2013 RECORDED 07/31/19 13 9:55AM BY KENDRICK HIGHTOWER MA, ERMA ON/ADDEN DUM Liseth Hooks null, [facility] 6 09:16:09 Disorder of skin 33197554 Completed 201212/09/2013 RECORDED 07/31/19 13 9:55AM BY KENDRICK HIGHTOWER MA, JEREMIAHATI ON/ADDEN DUM Liseth Hooks null, [facility] 6 09:16:08 Adult health examinat ion Completed 201212/09/2013 RECORDED 07/31/19 13 9:54AM BY KENDRICK HIGHTOWER MA, JEREMIAHATI ON/ADDEN DUM Leslie Ervin MA null, [facility] 7 10:10:49 Sprain of spinal ligament 832868912 Completed 201212/09/2013 RECORDED 07/31/19 13 9:55AM BY KENDRICK HIGHTOWER MA, ANNOTATI ON/ADDEN DUM Liseth Hooks null, [facility] 6 09:16:08 Cellulit is of digit 13351362 Completed 201211/15/2013 IMPRESSI ON: [place]. NEW RX SENT; RECORDED 01/12/20 13 3:25PM BY KENDRICK HIGHTOWER MA, ANNOTATI ON/ADDEN DUM Liseth Hooksakshat regalado, [facility] 6 09:16:08 Cellulit is of digit 97249214 Completed 201212/08/2013 IMPRESSI ON: [place] NEW RX SENT; RECORDED 01/12/20 13 3:25PM BY KENDRICK HIGHTOWER MA, ANNOTLISA ON/ADDEN DUM Liseth Hooks null, [facility] 6 09:16:08 Cellulit is of digit 79965396 Completed 201212/09/2013 IMPRESSI ON: [place] NEW RX SENT; RECORDED 01/12/20 13 3:25PM BY KENDRICK HIGHTOWER MA, ANNOTATI ON/ADDEN DUM Liseth Hooksakshat regalado, [facility] 6 09:16:08 Conjunct ivitis 3749602 Completed 201211/15/2013 RECORDED 02/02/20 13 11:08AM BY INNA BURCH MA, ANNOTATI ON/ADDEN DUM Lisethakshat regalado [facility] 6 09:16:08 Benign prostati c hyperpla kaela 549135130 Active 2012 Lisethakshat regalado [facility] 6 09:16:09 Lower urinary tract symptoms 649690876 Completed 201205/16/2016 Leslie regalado [facility] 7 10:10:45 Adult health examinat ion Completed 201211/15/2013 RECORDED 02/02/20 13 11:07AM BY INNA BURCH MA, ANNOTATI ON/ADDEN DUM Leslie regalado [facility] 7 10:10:49 Hearing loss 51749475 Completed 201211/15/2013 RECORDED 02/02/20 13 11:08AM BY INNA BURCH MA, ANNOTATI ON/ADDEN DUM Leslie regalado, [facility] 7 10:10:31 Patient status finding [id number] Completed 201211/15/2013 RECORDED 02/02/20 13 11:07AM BY INNA BURCH MA, ANNOTATI ON/ADDEN DUM Leslie regalado, [facility] 7 10:10:25 Acute upper respirat ory infectio n 57307960 Completed 201205/16/2016 IMPRESSI ON: NORMAL EXAM, REC. SYMPTOMA TIC TX, IBUPROFE N PRN PAIN. RTC IF PERSISTE NT OR WORSENIN G SYMPTOMS .; RECORDED 02/02/20 13 3:56PM BY BK PABLO PA-C, OFFICE VISIT Leslie regalado [facility] 7 10:11:22 Conjunct ivitis 8884798 Completed 201212/08/2013 RECORDED 02/02/20 13 11:08AM BY INNA BURCH MA, ANNOTATI ON/ADDEN DUM Liseth Jessee regalado [facility] 6 09:16:08 Conjunct ivitis 2422517 Completed 201212/09/2013 RECORDED 02/02/20 13 11:08AM BY INNA BURCH MA, ANNOTATI ON/ADDEN DUM Lisethakshat regalado [facility] 6 09:16:08 Patient status finding [id number] Completed 201305/16/2016 Leslie regalado [facility] 7 10:10:25 Depressi ve disorder 08131606 Active 2013 Leslie regalado [facility] 7 09:13:24 Urinary tract obstruct ion 7813444 Completed 201308/22/2016 Leslie regalado [facility] 7 09:13:25 Hyperlip idemia 15387576 Active 2013 Liseth regalado [facility] 6 09:16:09 Palpitat ions 68366659 Completed 201305/16/2016 Leslie regalado [facility] 7 10:11:12 Sciatica 37164800 Completed 201305/16/2016 STORY: RIGHT LEG PAIN/SAMANTHA ERABLE.; RECORDED 11/15/19 3:03PM BY INNA BURCH MA, OFFICE VISIT Leslie regalado [facility] 7 10:10:28 Vitamin D deficien cy 06127577 Active 2013 Liseth regalado [facility] 6 09:16:09 Screenin g for malignan t neoplasm of colon Completed 201305/16/2016 Leslie regalado [facility] 7 10:10:53 Adult health examinat ion Completed 201305/16/2016 Leslie regalado [facility] 7 10:10:49 Hearing loss 04103445 Completed 201305/16/2016 IMPRESSI ON: AUDIOMET RY ABNORMAL , HE WILL SELF REFER TO ENT; RECORDED 11/15/19 14 11:01PM BY MATTHEW LOVE, OFFICE VISIT Leslie regalado [facility] 7 10:10:31 Skin sensatio n disturba txe 01792795 Completed 201305/16/2016 Leslie regalado [facility] 7 10:11:16 Administ ration of diphther ia, pertussi s, and tetanus vaccine Completed 201305/16/2016 Leslie regalado [facility] 7 10:11:06 Ganglion and cyst of synovium , tendon and bursa Active 2013 Leslie Ervin MA [facility] 7 09:13:16 Primary erectile dysfunct ion 064465064 Active 2016 Damian JimMaiakenna blum [facility] 7 09:06:12 Problem Notes None recorded. Procedures Surgical History Date Name Laterality Status Provider Name and Address Organization Details Recorded Time 9 excision of lipoma of back completed Gloria Money [facility] 04/22/2019 10:32:24 5 Colonoscopy completed Juancarlos Millard PA-C [address] [address], [place], [address], [facility] 05/31/2018 09:23:54 2 Prostate Surgery completed Lesliekristi Lorenzoisidro AGUILERA [facility] 05/16/2016 10:09:36 0 Cancer Surgery completed Leslie Ervin MA [facility] 05/16/2016 10:09:36 3 Orthopedic Surgery completed Lesliekristi Ervin MA [facility] 05/16/2016 10:09:36 Imaging Results None recorded. [...] REFILL REQUEST; THIS ORDER DISCONTI NUED PER [facility]. Not Available Not Available [...] Updated DateTime 8 182.88 cm 23.9 kg/m2 25421.9 6 g 99 % 99 % 72 /min 98.3 [degF] Leslie Ervin [facility] [place] 8 15:59:46 Date Recorded Body height Body mass index (BMI) Body weight Oxygen saturation Oxygen saturation in Arterial blood by Pulse oximetry Heart rate Body temperature Systolic And Diastolic Provider Name and Address Organization Details Last Updated DateTime 9 182.88 cm 24.4 kg/m2 91580.6 3 g 98 % 98 % 75 /min 97.1 [degF] 107/67 mm[Hg] Leslie Ervin [facility] 9 08:51:16 Date Recorded Body height Body weight Body mass index (BMI) Oxygen saturation Oxygen saturation in Arterial blood by Pulse oximetry Heart rate Body temperature Provider Name and Address Organization Details Last Updated DateTime 7 182.88 cm 94579.9 8 g 14.6 kg/m2 98 % 98 % 73 /min 98.1 [degF] [facility] 7 14:25:01 Date Recorded Body height Body mass index (BMI) Body weight Oxygen saturation Oxygen saturation in Arterial blood by Pulse oximetry Heart rate Body temperature Systolic And Diastolic Provider Name and Address Organization Details Last Updated DateTime 7 182.88 cm 23.4 kg/m2 61674.3 2 g 98 % 98 % 72 /min 97.4 [degF] 110/64 mm[Hg] Maureen Joya [facility] 7 09:46:31 Date Recorded Body height Body mass index (BMI) Body weight Heart rate Body temperature Oxygen saturation Oxygen saturation in Arterial blood by Pulse oximetry Systolic And Diastolic Provider Name and Address Organization Details Last Updated DateTime 8 182.88 cm 24.4 kg/m2 51620.6 3 g 55 /min 97.1 [degF] 98 % 98 % 103/57 mm[Hg] Leny Herrera MA [facility] 8 09:15:56 Social History Question Answer Notes LastModified by Organizat ion Details LastModified Time Tobacco Smoking Status Never Smoker WILLY Alfredo [facility] 09/26/2014 16:35:57 Do You Have An [...] Problems N Arthritis N Head Injury/Concussion N Infertility N Polyps N Congenital Anomalies N Acid Reflux (GERD) [...] Td (adult) 6 completed Liseth Hooks null, [facility] 07/31/2014 11:00:07 zoster live 6 completed Liseth regalado [facility] 10/23/2015 09:16:09 Influenza, split virus, quadrivalent, preservative 8 completed WILLY Alfredo, [facility] 04/09/2018 09:14:42 Influenza, split virus, trivalent, preservative 7 completed Not Available [facility] 11/15/2013 13:23:27 Hep B, adult 8 completed Not Available [facility] 11/15/2013 13:23:27 Hep B, adult 8 completed Not Available [facility] 11/15/2013 13:23:27 Hep B, adult 9 completed Not Available [facility] 11/15/2013 13:23:27 Novel [id number] , all formulations 0 completed Not Available [facility] 11/15/2013 13:23:27 Past Encounters Encounter ID Performer Location Encounter Start Date Encounter Closed Date Diagnosis/Indication Diagnosis SNOMED-CT Code Diagnosis ICD10 Code Diagnosis IMO Codes Diagnosis Note [id number] [address] [facility] [place] [address] 12/18/2006 00:00:00 [id number] autoEComm erce [address] [facility] [place] [address] 03/18/2007 00:00:00 [id number] autoEComm erce [address] [facility] [place] [address] 04/07/2007 00:00:00 [id number] autoEComm erce [address] [facility] [place] [address] 08/07/2008 00:00:00 [id number] autoEComm erce [address] [facility] [place] [address] 10/18/2008 00:00:00 [id number] autoEComm erce [address] [facility] [place] [address] 09/06/2009 00:00:00 [id number] autoEComm erce [address] [facility] [place], [place] [address] 09/10/2010 00:00:00 [id number] autoEComm erce [address] [facility] [place], [place] [address] 07/14/2011 00:00:00 [id number] autoEComm erce [address] [facility] [place], [place] [address] 10/13/2011 00:00:00 [id number] autoEComm erce [address] [facility] [place], [place] [address] 07/30/2012 00:00:00 [id number] autoEComm erce [address] [facility] [place], [place] [address] 01/11/2013 00:00:00 [id number] autoEComm erce [address] [facility] [place] [address] 02/01/2013 00:00:00 [id number] autoEComm erce [address] [facility] [place] [address] 11/14/2013 00:00:00 [id number] GUNNAR Horowitz Main Office [address] [address] [place] [address] 09/26/2014 16:26:37 09/26/2014 17:03:32 Impacted cerumen 17663399 May use debrox or OTC equivalent weekly to prevent buildup of wax. Otitis externa 7240546 Marnie tis externa left ear, ofloxacin as prescribed x 7-10 days, avoid swimming/ getting water in ear until sx have resolved. 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 see Dr Stephens note from last year [id number] Damian blum MD Main Office [address] [address] [place] [address] 05/16/2016 09:56:16 05/16/2016 11:28:51 Adult health examination [id number] Z00.00 Palpitations 02079232 R0 0.2 Major depr essive disorder 746194337 F32.9 psych provider/i s Dr Hutchins/ continue meds Hyperlipidemia 05717619 E78.5 Primary er ectile dysfunction 793132346 N52.9 [id number] Damian blum MD Main Office [address] [address] [place] [address] 08/22/2016 14:20:21 08/22/2016 15:20:38 Lipoma of back 093621058 D17.1 Peripheral motor neuropathy 12608313 G62.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 see Dr Stephens note from last year [id number] Jauncarlos Millard PA-C Main Office [address] [address] [place] [address] 01/28/2017 09:33:38 01/28/2017 10:22:47 Cellulitis of forearm 61239460 L03.114 mild but getting progressiv goldie slightly worse at 1 month out - no h/o DM - also has some occ pus dc - ? mrsa - will rx c bactrim as dir, f/u if no better [id number] Damian blum MD Main Office [address] [address] [place] [address] 05/28/2017 15:53:32 05/28/2017 16:42:45 Adult health examination 314213552 Z00.00 Hyperlipidemia 30155077 E78.5 Lipoma of back 596290852 D17.1 [id number] Clarke Estevez MD Main Office [address] [address] [place] [address] 04/09/2018 08:52:12 04/09/2018 09:49:35 Cellulitis and abscess of buttock 176569205 L02.31 Will cover for enteric and skin devan. Pt advised to call with any problems on abx or if lesion does not drain spontaneou sly with abx and warm compress. [id number] Clarke Estevez MD Main Office [address] [facility] [address] [facility] [place], [place] [address] 05/31/2018 08:39:00 05/31/2018 09:43:53 Adult health examination 866455063 Z00.00 rev labs c pt, he got a flu shot thru his pharmacy Primary er ectile dysfunction 925686245 N52.9 pt would like to try generic cialis Lipoma of back 540454856 D17.1 pt never went last yr - will re-try Impaired f asting glycemia 627068017 R73.01 no evidence of pre-dm c a1c 5.5 Hyperlipidemia 15082118 E78.5 Depressive disorder 3548 9007 F32.9 cont f/u c psych q 3 months - gets meds thru psych Attention deficit hyperactivity disorder, predominantly inattentive type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
== END 2025-03-20 14:06 | disposition home or self-care (01) ==
LOC: HO.HCS 13:36
PROVIDERS: PCP Family Medicine; Visit Provider Internal Medicine
DX: I48.3 Typical atrial flutter (principal); I31.39 Other pericardial effusion (noninflammatory)
CPT/HCPCS: 93010; 99214; G2211

== ENCOUNTER → 2025-03-20 13:36 | Outpatient (BNVA) | payer MEDICARE, SELFPAY | PROVIDERS: PCP Family Medicine; Visit Provider Internal Medicine | DX: I48.3 Typical atrial flutter (principal); I31.39 Other pericardial effusion (noninflammatory) | CPT/HCPCS: 93005; 99212 ==

== ENCOUNTER 2025-03-21 14:52 | Outpatient (REF) | payer MEDICARE, SELFPAY ==
[2025-03-21 18:03] LABS: MANUAL DIFF FLAG NO
[2025-03-21 18:14] LABS: Appearance Urine Clear; Glucose Urine UA Negative (Negative); PH 6.5 (5.0-9.0); Specific Gravity - Urine 1.010 (1.005-1.025)
[2025-03-21 18:24] LABS: Hematocrit 41.4 % (42.0-52.0); Hemoglobin 13.0 g/dl (14.0-18.0); Imm Gran Abs Auto 0.00 X10*3/uL (0.00-0.03); Imm Gran Pct Auto 0.0 % (0.0-0.4); Lymphocytes Absolute Auto 1.5 X10*3/uL (1.2-4.9); Mean Corpuscular HGB Conc 31.4 g/dl (31.0-36.0); Mean Corpuscular Hemoglobin 27.8 pg (27.0-33.0); Mean Corpuscular Volume 88.7 fL (80.0-98.0); NRBC Abs Auto 0.000 X10*3/uL (0.0-0.012); NRBC Pct Auto 0.0 /100WBC (0.0-0.2); Platelet Count 180 X10*3/uL (160-400); Red Blood Count 4.67 X10*6/uL (4.60-5.80); White Blood Count 4.1 X10*3/uL (4.8-10.8)
[2025-03-21 18:54] LABS: Total Protein Urine Random < 7 mg/dL (<12)
[2025-03-21 18:57] LABS: Alanine Aminotransferase 36 U/L (0-40); Albumin Level 4.7 g/dL (3.5-5.0); Alkaline Phosphatase 98 U/L (39-117); Anion Gap 13 (12-20); Aspartate Amino Transferase 26 U/L (5-37); Blood Urea Nitrogen 14 mg/dL (9-16); Calcium 9.1 mg/dL (8.4-10.2); Carbon Dioxide 26 mmol/L (22-29); Chloride 107 mmol/L (96-108); Estimated Glomerular Filt Rate > 60; Potassium 4.2 mmol/L (3.3-5.1); Sodium 142 mmol/L (135-145); Total Protein 7.3 g/dL (6.5-8.0)
[2025-03-22 14:42] LABS: Antibody to SS-A Antigen <1.0 NEG AI (<1.0 NEG); Antibody to SS-B Antigen <1.0 NEG AI (<1.0 NEG); SM/Ribonucleoprotein Ab <1.0 NEG AI (<1.0 NEG); Smith Protein <1.0 NEG AI (<1.0 NEG)
[2025-03-24 10:08] LABS: DNAds, Crithidia Antibody Negative (Negative)
[2025-03-27 16:44] LABS: Centromere Protein A Ab <11 SI (<11); Centromere Protein B Ab <11 SI (<11); Fibrillarin Ab <11 SI (<11); PM SCL 100 Ab <11 SI (<11); PM SCL 75 Ab <11 SI (<11); RNA Polymerase III RP11 Ab <11 SI (<11); RNA Polymerase III RP155 Ab <11 SI (<11); SCL-70 Extractable Nuclear Ab <11 SI (<11); Th-To Ab <11 SI (<11); U1 SNRNP RNP 70KD <11 SI (<11); U1 SNRNP RNP A <11 SI (<11); U1 SNRNP RNP C <11 SI (<11)
== END 2025-03-21 14:53 | disposition home or self-care (01) ==
LOC: HO.HKASLDS 14:52
PROVIDERS: PCP Family Medicine; Visit Provider Student in an Organized Health Care Education/Training Program
DX: I30.0 Acute nonspecific idiopathic pericarditis (principal); Z51.81 Encounter for therapeutic drug level monitoring; Z79.624 Long term (current) use of inhibitors of nucleotide synthesis; M32.9 Systemic lupus erythematosus, unspecified; Z01.84 Encounter for antibody response examination
CPT/HCPCS: 36415; 80053; 81001; 82570; 84156; 84182; 85025; 85652; 86140; 86160; 86225; 86235; 86255; 99212

== ENCOUNTER 2025-03-21 14:52 | Outpatient (AMB) | payer MEDICARE, SELFPAY ==
--- OUTSIDE RECORDS SUMMARY | 2025-03-15 15:00 | XMS_ITS | Encounter Summary ---
Author Organization [facility] Address [address] [facility] [address] [place] [address] Phone Care Team Providers Care Airport Operations Supervisor Name Role Phone Khdara Romo MD Primary Care Provider + [phone] John Chopra MD Unavailable [phone] Lenny Pendleton MD Unavailable Reason for Visit * Consultation (Urgent/Acute (Prioritized Outreach)) - New Request Specialty Diagnoses / Procedures Referred By Senthil wise Referred To Contact Neurology Lenny Pendleton MD [address] [facility] [address] [facility] [address] [place] [address] Phone: tel: fax: mailto:[email or web address] Referral ID Status Reason Start Date Expiration Date V isits Requested Visits Authorized [id number] New Request 02/02/2025 02/02/2026 1 1 Encounter Details Date Type Department Care Team (Late st Contact Info) Description 03/15/2025 3:00 PM EST Office Visit [facility] Department of Neurology [address] [place] [address], 8th Floor, [address] [place] [address] Luanne Rodríguez MD [address] [place], [place] [address] [place] [address] [email or web address] History of stroke (Primary Dx); Atrial flutter, unspecified type Social History Tobacco Use Types Packs/Day [...] Sign Reading Time Taken Comments Blood Pressure 97/65 03/15/2025 2:57 PM EST Pulse 99 03/15/2025 2:57 PM EST Temperature 36.8 C (98.2 F) 03/15/2025 2:57 PM EST Respiratory Rate - - Oxygen Saturation 99% 03/15/2025 2:57 PM EST Inhaled Oxygen Concentration - - Weight 76.7 kg (169 lb) 03/15/2025 2:57 PM EST Height 182.9 cm (6' 0.01 ) 03/15/2025 2:57 PM ES T Body Mass Index 22.92 03/15/2025 2:57 PM EST documented in this encounter Patient Instructions * Attachments The following attachments cannot be sent through Care Everywhere. * Stroke: Symptoms: General Info (Indian) * Mediterranean Diet: General Info (Indian) documented in this encounter Progress Notes * Bobby Calderon MD, MSc - 03/15/2025 3:00 PM ESTAddended by: BOBBY CALDERON on: 03/17/2025 10:33 AM Modules accepted: Level of Service * Luanne Rodríguez MD - 03/15/2025 3:00 PM EST Images from the original note were not included. Chilo Lee 69 y.o. male Chilo Lee is a 69 y.o. R-handed man with a long standing history of gait instability, demyelinating neuropathy and autonomic dysfunction who presents to vascular neurology clinic for follow up after a recent small embolic appearing stroke. 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 More recently he has also developed pericarditis and atrial flutter. Regarding his index stroke, he reports that he was in his usual state of health when he noticed an odd sensation in his right hand while walking into a parent???s apartment. He initially continued his visit, but on returning to his car he found that his right hand was not functioning normally and he could not reliably manipulate his keys or perform fine finger movements. He went home, looked up his symptoms, and ultimately presented to the emergency department. By the time he was evaluated his symptoms had largely resolved. Initial CT and CTA did not show an acute infarct. Subsequent MRI obtained several hours later demonstrated a small cortical diffusion restricting lesion in the left frontal lobe consistent with a minor embolic appearing infarct. He was treated with aspirin initially. He states that his right hand discoordination resolved fully and he has no persistent focal deficits. In the weeks to months surrounding this event he had multiple emergency room visits for cardiopulmonary symptoms. Following the stroke he underwent further cardiac workup and was diagnosed with A flutter. He was transitioned from aspirin to eliquis for secondary stroke prevention. A prior statin was discontinued when liver enzymes were felt to be abnormal. He has a scheduled visit with electrophysiology as well as ongoing cardiology follow up. He and his partner report that they have been told different things at different visits about cardioversion, ablation and the relationship between pericarditis and his atrial arrhythmia, and they are seeking clarification regarding stroke risk, need for shelter anticoagulation, and whether rhythm control procedures would change his stroke prevention plan. 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 No smoking. Rare EtOH and no elicit drug use. Past Medical History: Diagnosis Date Acute idiopathic pericarditis 01/27/2025 Tamponade requiring pericardiocentesis 02/2025, bloody effusion Atrial fibrillation with RVR 02/10/2025 Attention deficit hyperactivity disorder (ADHD) Basal cell carcinoma, ear, left ca 2001 F/b [facility] 09/2023 During altitude sickness; asymptomatic; normal echocardiogram Effects of high altitude 10/30/2023 Erectile dysfunction Hearing loss 2022 History of basal cell cancer s/p on ear Hyperlipidemia Pretreatment LDL 200-250 Ischemic stroke of frontal lobe 01/27/2025 L frontal lobe, presented with R arm weakness, cognitive impairment. Sx resolved w/in few hours. Repeat brain MRI, EEG WNL 02/2025 Jerky body movements in legs, occurs when stationary. Major depression, recurrent, full remission Followed by psychiatry Mild neurocognitive disorder 2023 recommend repeat testing 12-18 mos and formal driving eval now Neuropathy 2014 Parkinsonian syndrome dx 2021 Probable PD: new change in sense of taste, very longstanding balance problems, abnormal MRI & GERMAN scan. multiple neuro c/s. 2023 ?CIDP Pilonidal cyst 11/12/2021 Pneumonia of left lower lobe due to infectious organism 02/10/2025 Restless leg syndrome Longstanding, but suddenly much worse in ? Past Surgical History: Procedure Laterality Date BASAL CELL CARCINOMA EXCISION Left C3-5 LAMINOPLASTY CERVICAL SPINE C6 LAMINOTOMY N/A 05/27/2024 Performed by Margoth Velásquez MD at [facility] OR COLONOSCOPY 2015 per patient Repeat 10 years EYE SURGERY 2009 SALIVARY GLAND SURGERY Decades ago (as of 2021) Gland removed due to stones TRANSURETHRAL RESECTION OF PROSTATE ca 1999 Family History Problem Relation Age of Onset Skin cancer Mother NOS Depression Mother Coronary artery disease Father Breast cancer Sister Depression Sister Sleep apnea Brother Coronary artery disease Paternal Grandfather Psychiatric disorder Unspecified Substance abuse Depression Unspecified Breast cancer Unspecified Aunt Diabetes Neg Hx Colon cancer Neg Hx Prostate cancer Neg Hx Social History Socioeconomic History Marital status: /Civil Union Spouse name: Not on file Number of children: Not on file Years of education: Not on file Highest education level: Not on file Occupational History Not on file Tobacco Use Smoking status: Never Smokeless tobacco: Never Vaping Use Vaping status: never used Substance and Sexual Activity Alcohol use: Yes Comment: Do not drink every week Drug use: Never Sexual activity: Yes Partners: Female Other Topics Concern Not on file Social History Narrative 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 Exercise: Yoga, running. Last year did 17 miles of a marathon. 10/2024 retiring this month MEDICATIONS:? Outpatient Medications Marked as Taking for the 03/15/25 encounter (Office Visit) with Luanne Rodríguez MD Medication Sig Dispense Refill Last Dispense apixaban (ELIQUIS) 5 mg tablet Take 5 mg by mouth 2 (two) times a day. Unknown (patient-reported) colchicine (COLCRYS) 0.6 mg tablet Take 1 tablet by mouth every morning. Unknown (patient-reported) digoxin (LANOXIN) 250 mcg (0.25 mg) tablet Take 250 mcg by mouth daily. Hold for HR <60 Unknown (patient-reported) lamoTRIgine (LAMICTAL) 100 MG IMMEDIATE release tablet Take 100 mg by mouth daily. Unknown (patient-reported) lamoTRIgine (LAMICTAL) 200 MG IMMEDIATE release tablet Take 200 mg by mouth. 300 mg in the morning and 200 mg bedtime Unknown (patient-reported) metoprolol tartrate (LOPRESSOR) 25 MG tablet Take 12.5 mg by mouth 2 (two) times a day. Unknown (patient-reported) omeprazole (PRILOSEC) 40 MG capsule Take 40 mg by mouth daily. Unknown (patient-reported) rOPINIRole (REQUIP) 2 MG tablet Take 1 tablet (2 mg total) by mouth nightly at bedtime. 90 tablet 1Unknown (outside pharmacy) ALLERGIES: No Known Allergies PHYSICAL EXAM: BP 97/65 (BP Location: Right arm, Patient Position: Sitting) Pulse 99 Temp 36.8 ??C (98.2 ??F) (Temporal) Ht 182.9 cm (6' 0.01 ) Wt 76.7 kg (169 lb) SpO2 99% BMI 22.92 kg/m?? GEN: pt resting comfortably in exam room. NAD. MENTAL STATUS: alert & oriented to person, place, time, location & situation. Attention preserved. Able to follow simple, complex & cross midline commands. Speech fluent and coherent withno paraphasic errors or neologisms. No evidence of dysarthria. CN: pupils equal, round & reactive to light w/ preserved direct & consensual reflexes. Visual tripp are intact. Full extraocular movements with no evidence of nystagmus. Square wave jerks observed during EOM testing. Facial sensation intact bilaterally. Smile is symmetric. No nasolabial fold flattening. Hearing grossly preserved. Uvula is midline and palate rises symmetrically. Shoulder s hrug strong & equal bilaterally. No tongue deviation or fasciculations. MOTOR: normal muscle tone and bulk. No drift on Nova testing. Strength is full in the bilateral upper and lower extremities both proximally and distally. No abnormal movements. R Muscle strength L Upper limbs 5 Deltoid (shoulder abduction) 5 5 Biceps, brachioradialis (elbow flexion) 5 5 Triceps (elbow extension) 5 5 Radial (wrist extension) 5 5 Finger extension 5 5 Finger abduction 5 R Muscle strength L Lower limbs 5 IP (hip flexion) 5 5 QF (knee extension) 5 5 HS (knee flexion) 5 5 GC (plantarflexion) 5 5 TA (dorsiflexion) 5 Functional Description MRC scale Normal 5 Preserved resistance (25% Reduced) 4+ Preserved resistance (50% reduced) 4 Preserved Resistance (75% Reduced) 4- Antigravity without resistance 3 Movement, gravity eliminated 2 Twitch 1 No movement 0 REFLEXES: R Reflexes L 0 Biceps brachii 0 0 Brachioradialis 0 1+ Quadriceps femoris 1+ 1+ Gastroc. soleus 1+ SENSORY: intact sensation to light touch throughout. COORDINATION: FTN without ataxia or dysmetria. Able to perform rapid alternating movements. GAIT: normal based gait & stance. Able to rise onto toes and heels independently. NIHSS: NIH Stroke Scale Level of Consciousness (1a.): Alert, keenly responsive LOC Questions (1b.): Answers both questions correctly LOC Commands (1c.): Performs both tasks correctly Best Gaze (2.): Normal Visual (3.): No visual loss Facial Palsy (4.): Normal symmetrical movements Motor Arm, Left (5a.): No drift Motor Arm, Right (5b.): No drift Motor Leg, Left (6a.): No drift Motor Leg, Right (6b.): No drift Limb Ataxia (7.): Absent Sensory (8.): Normal, no sensory loss Best Language (9.): No aphasia Dysarthria (10.): Normal Extinction and Inattention (11.) (Formerly Neglect): No abnormality Total: 0 (03/15/252050) DATA: Imaging CT head (02/20/25): FINDINGS: No acute intracranial hemorrhage, mass effect, midline shift, hydrocephalus or herniation. Romero-white matter differentiation is normal. Posterior cranial fossa contents demonstrated no acute hemorrhage or mass effect. Sellar/suprasellar region demonstrated no gross masses. Craniocervical junction is intact with normal position of the cerebellar tonsils. Mucosal thickening, ethmoid air cells and sphenoid sinus. Poor pneumatization of the frontal sinuses. Tympanic cavities and mastoid cells are aerated. MRI brain (02/24/25): The pituitary is normal in size. The cerebellar tonsils are normally located. There is mild prominence of the ventricular system and cortical sulci, consistent with atrophy. A few scattered periventricular and subcortical white matter hyperintensities are noted on the FLAIR and T2-weighted images which are nonspecific, but often seen in the setting of small vessel ischemic disease. There is no mass effect or midline shift. No intra or extra-axial fluid collections are identified. There are no foci of restricted diffusion. Normal vascular flow voids are noted in the basilar and carotid arteries. The visualized paranasal sinuses are clear. CTA head/neck (01/17/25): MRI brain (01/17/25): IMPRESSION: 1. Solitary very small focus of cortical restricted diffusion in posterior aspect left frontal lobeas described consistent with minimal focal acute ischemia. 2. Otherwise no acute intracranial findings. Labs 09/2024: - LDL 134, homocystine 9.2, TSH 1.44 - ESR 16, CRP 27 05/2024: - JACOB neg, RF neg 11/2023: - A1c 5.8% ASSESSMENT & PLAN: Chilo Lee is a 69 y.o. R-handed man who presents for follow up after a small left frontal cortical ischemic stroke. Clinically he experienced a brief episode of right hand discoordination and impaired fine motor control, with complete resolution by the time of evaluation. MRI demonstrated a tiny cortical infarct in the left frontal convexity, and CTA revealed no flow limiting cervicocephalic stenosis or significant atherosclerotic plaque. The stroke pattern and absence of large vessel diseasesupport a cardioembolic mechanism. He was subsequently found to have atrial flutter during cardiac workup in the setting of inflammatory pericarditis and is now appropriately anticoagulated with Eliquis. Because he has already sustained a cardioembolic stroke, he will require ongoing anticoagulation even if he undergoes cardioversion or catheter ablation, as neither intervention reliably eliminates stroke risk or guarantees durable absence of atrial flutter. - Continue Eliquis 5 mg BID - Consider evaluation of DOAC formulary options with cardiology or primary care to reduce medication cost, including possible switch to [place] if covered more favorably - Patient asked to send recent laboratory results for review given report of elevated liver enzymesthat prompted statin discontinuation Additional stroke prevention recommendations as follows: - Maintain an average systolic blood pressure <130mmHg. Patient was encouraged to maintain a daily log of home blood pressure readings and follow-up with PCP to adjust antihypertensive medicationsas needed to reach goal - Maintain euglycemia with target hemoglobin A1c <7% - Engage in moderate aerobic physical exercise at least 150 minutes weekly, as recommended by the [place] [employer]. Goal BMI<30 - Maintain a heart-healthy diet, incorporating elements of the Mediterranean diet - Abstinence from tobacco use, and avoid secondhand smoke - Alcohol consumption should not exceed 1 to 2 servings per day The patient is advised to seek immediate medical attention if any stroke-like symptoms develop in the future. New symptoms that should trigger immediate medical re-evaluation include sudden weakness of the face, arm or leg, sudden loss of speech or language, or sudden loss of vision in one or both eyes or one half of the visual field. Luanne Rodríguez MD Vascular Neurology Fellow [facility] * Bobby Calderon MD, MSc - 03/15/2025 3:00 PM EST I saw and evaluated the patient on 03/15/25. I agree with the history, findings, assessment and plan documented by Dr. Rodríguez. Recent neuroimaging and radiography reviewed on the date of the visit. Additional points/modifications as follows: 69 y.o. male with history of ataxia and autonomic dysfunction, presenting with small emboliform stroke in the setting of new onset atrial fibrillation, which occurred in the setting of pericarditis. He is on colchicine, and it is not clear whether the AF was provoked by inflammation related to the pericarditis. EP appointment upcoming. On DOAC for secondary stroke prevention. He is exploring rhythm control options but we expect that he will require long-term DOAC regardless. If his AF were to be considered provoked by pericarditis, an ILR could be considered once his pericarditis resolves andif tank terminal gauger cessation of AF is documented, reversion to antiplatelet could be considered. Remainder of detailed history, neurologic examination, and plan of care is as documented in the accompanying training physician note. Services included: physical examination/reviewing events, history and imaging studies/reviewing laboratory studies/reviewing the patient's condition. I have spent 33 minutes preparing for the visit, reviewing the medical record, seeing the patient, developing a plan of care, and coordinating follow-up care on the date of the visit. Bobby Calderon MD, MSc documented in this encounter Plan of Treatment Upcoming Encounters Date Type Department Care Team (Late st Contact Info) Description 04/10/2025 11:00 AM EST Office Visit [facility] Neurology Neuromuscular [address], [address] [place] [address] Lenny Pendleton MD [address] [facility] [address] [place] [address] [email or web address] 04/28/2025 1:00 AM EST Appointment [facility] [address] [place] [address] Yuliana Givens RN [address] [place] [address] 05/03/2025 11:00 AM EST Office Visit [facility] Cardiac Arrhythmia Service [address] [facility], 5th [address], [address] [place] [address] Jed Guido MD, MPH [address] [facility] [address] [place] [address] 06/09/2025 1:00 PM EST Office Visit [facility] Department of Neurology [address] [facility], 8th [address], [address] [place] [address] John Chopra MD [address] [facility] [address] [place] [phone] [email or web address] 07/21/2025 8:40 AM EDT Office Visit [facility] [address] [place] [address] Khadra Romo MD [address] [place] [address] [address] [place] [address] [email or web address] 08/25/2025 11:00 AM EDT Office Visit [facility] Cardiology [facility] [address] [facility], [address] [place] [address] Clementine Brower MD [address] [facility], [address] [place] [address] [email or web address] Scheduled Referrals Name Type Priority Associated Diagnoses Order Schedule Ambulatory referral to [facility] Neurology - Employed Practices Outpatient Referral Routine Ordered: 02/02/2025 Ambulatory referral to [facility] Neurology - Employed Practices Outpatient Referral Routine REM sleep behavior disorder Ordered: 02/03/2025 documented as of this encounter Visit Diagnoses Diagnosis History of stroke- Primary Transient ischemic attack (TIA), and cerebral infarction without residual deficits Atrial flutter, unspecified type documented in this encounter Additional Health Concerns Assessment Noted Time PHQ-9 Depression Total Score: 12 06/17/ 024 3:46 PM EST PHQ-2 Depression Total Score: 1 06/28/19 25 2:08 PM EST documented as of this encounter Care Teams Airport Operations Supervisor Relationship Specialty Start Date End Date Khadra Romo MD [address] [facility] [address] [place] [address] [email or web address] PCP - General Family Medicine 06/12/21 John Chopra MD [address] [place] [address] [place] [phone] [email or web address] 06/17/23 Lenny Pendleton MD [address] [place] [address] [address] [place] [address] [email or web address] 06/17/23 documented as of this encounter Additional Source Comments The information contained in this document represents components of the legal health record. It is not the complete legal health record.[facility]
--- NOTE | 2025-03-21 14:54 | MHC.OFFVIS ---
Vital Signs 03/21/25 15:03 Height 6 ft Weight 170 lb 13.732 oz BMI 23.2 BP 122/80 Blood Pressure Location Lt brachial Position Sitting Pulse 89 Pulse Source Pulse Oximeter Pulse Oximetry (%) 98 Oxygen Delivery Method Room Air Intake Visit Reasons: follow up Intake Note: Patient presents today for ER follow up. Allergies No Known Allergies Allergy (Verified 03/21/25 14:59) Medication List - Last Reconciled 03/21/25 by Kelly Vazquez MD colchicine 0.6 mg PO DAILY digoxin 0.25 mg See Protocol PO DAILY 90 days lamotrigine (Lamictal) 200 mg PO BID lamotrigine 100 mg PO DAILY metoprolol tartrate 12.5 mg (1/2 x 25 mg) PO BID 90 days rivaroxaban (Xarelto) 20 mg PO QPM ropinirole 2 mg PO BEDTIME HPI Comments Details: Patient is a 69 y.o. male with hyperlipidemia, Parkinson's disease, anxiety/depression, CIDP, restless legs syndrome and a positive JACOB here today for follow up Interval History: Patient last seen 11/17/24 with me - Not on DMARDs - Continues to have neuropathic symptoms - Sees neurology and neuromuscular specialty at [facility] in [place] - Current working diagnosis is CIDP, but according to patient he does not fit the full clinical criteria - Repeat blood work again shows positive JACOB, now 1:80 - Denies rashes, photosensitivity, alopecia, oral/nasal ulcers, sicca symptoms, lymphadenopathy, chest pain/shortness of breath, inflammatory type joint pain, foamy urine, lower extremity edema, muscle weakness, Raynaud's - Also denies history of seizure, CVA, psychosis, history of kidney problems, history of cytopenias, history of VTE including PE or DVTs - No concern for rheumatic disease at that time Today - Not on DMARDs - presented to the emergency department 01/14/2025 with progressive right-sided chest pain associated with shallow breathing and positional. EKG suggestive of pericarditis - echo done 01/2025 did not show any pericardial effusion however repeat echo done 02/03/2025 showed a small to moderate circumferential pericardial effusion without evidence of tamponade. This progressed on 02/2022 25 2 a large circumferential pericardial effusion with RV diastolic compression. - pericardiocentesis performed - Denies rashes, photosensitivity, alopecia, oral/nasal ulcers, sicca symptoms, lymphadenopathy, chest pain/shortness of breath, foamy urine, lower extremity edema, muscle weakness, Raynaud's - Also denies history of seizure, psychosis, history of kidney problems, history of cytopenias, history of VTE including PE or DVTs Rheumatologic History: Idiopathic pericarditis - Positive JACOB 1:80 - Pericardial effusion/pleural effusion Initial history: The patient is seen for evaluation of a positive JACOB. The test was drawn because the patient apparently has been diagnosed with CIDP. He has been occasionally falling over the last few years. There has been intermittent numbness in the feet. He says he is also thought to have Parkinson's disease and possibly multisystem failure. He recent had EMG's done that seem to indicate a severe peripheral neuropathy. 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 He has been running about 3 miles every other day with longer runs on weekends. He had some right knee pain recently and has not run in about a week. There has also been occasional pain in the left lateral foot. He thinks this is because of pressure over that area. He does not have any skin rashes although has a history of a basal cell carcinoma removed from the left ear. He has occasional dry eyes for which he uses pqpn-fbh-thoejvt ocular lubricants. Last year he had lost his sense of smell for about 6 months but it came back. There is no sun sensitivity or Raynaud's symptoms. Current Rheumatology Medication(s): [facility] Medical History (Updated 03/21/25 @ 16:27 by Kelly Vazquez MD) Idiopathic pericarditis Recent cerebrovascular accident Chronic pericardial effusion Acute pericardial effusion Numbness and tingling Pericarditis Peripheral demyelinating neuropathy JACOB positive Orthostatic hypertension Restless legs syndrome CVA (cerebral vascular accident) Cognitive disorder Back pain Anxiety Depression Hyperlipidemia Non-melanoma skin cancer Surgical History H/O cervical spine surgery History of ear surgery Family History Father Myocardial infarction Family/Other Cancer Family/Other Breast cancer Mother Skin cancer Social History Household Members: Spouse Housing: House Are you a primary child care teacher to a significant other at home: No Do you presently have visiting nurse or other home services: No Alcohol intake: current Alcohol intake frequency: holidays/special occasions only Alcohol type: beer and hard liquor Comment: with patient, assisting Patient Tobacco Use Status: Never used Tobacco e-Cigarette/Vaping Use: Never Used Advance Directives Date on File: 02/07/25 service: No Current occupational status: employed 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 Well appearing and in no apparent painful distress HEENT Conjunctiva and sclera clear. No lymphadenopathy. CHEST/RESPIRATORY SYSTEM Normal respiratory effort and able to speak in complete sentences. Clear to auscultation bilaterally. No crackles, rales, rhonchi, wheezes heard. CARDIAC SYSTEM Regular rate and rhythm. S1 and S2 heard no murmurs. Radial pulses intact bilaterally MSK Hands Right Hand: Able to make a fist. No swelling or tenderness to palpation of the MCPs, PIPs or DIPs. Left Hand: Able to make a fist. No swelling or tenderness to palpation of the MCPs, PIPs or DIPs. Wrists Right Wrist: Full ROM to flexion and extension. No swelling or TTP Left Wrist: Full ROM to flexion and extension. No swelling or TTP Elbows Right Elbow: Full ROM. No swelling or TTP. No TTP of the medial epicondyle. No TTP of the lateral epicondyle Left Elbow: Full ROM. No swelling or TTP. No TTP of the medial epicondyle. No TTP of the lateral epicondyle Shoulders Right shoulder: Full ROM. No swelling noted. No TTP of the AC joint. No TTP of the subacromial bursa. No TTP of the posterior shoulder Left shoulder: Full ROM. No swelling noted. No TTP of the AC joint. No TTP of the subacromial bursa. No TTP of the posterior shoulder Knees Right knee: Full ROM. No swelling noted. No TTP of the knee joint line. No TTP of pes anserine bursa Left knee: Full ROM. No swelling noted. No TTP of the knee joint line. No TTP of pes anserine bursa. Ankles Right ankle: Good ankle dorsiflexion and plantar flexion. No swelling. No TTP of the ankle joint Left ankle: Good ankle dorsiflexion and plantar flexion. No swelling. No TTP of the ankle joint Feet Right foot: Negative squeeze test Left foot: Negative squeeze test Tender points? No tenderness to palpation of the bilateral trapezius, supraspinatus, anterior costochondral junctions, bilateral suboccipital muscle insertions SKIN No rashes Vital Signs: Last Vital Signs Pulse 89 03/21/25 15:03 BP 122/80 03/21/25 15:03 Pulse Ox 98 03/21/25 15:03 Oxygen Delivery Method Room Air 03/21/25 15:03 BMI result Body Mass Index 23.2 Results Reviewed Results Reviewed: Laboratory Tests 02/27/25 03/08/25 09:44 12:13 WBC 9.2 RBC 4.36 L Hgb 12.4 L Hct 38.8 L ESR 25 H 2 Sodium 142 Potassium 4.3 Chloride 107 Carbon Dioxide 28 BUN 29 H Creatinine 0.79 AST 23 ALT 56 H C-Reactive Protein 3.64 H 0.25 Laboratory Tests 11/17/24 02/03/25 09:44 05:16 JACOB Screen POSITIVE A JACOB Titer 1:80 H JACOB Pattern Nuclear, Homogeneous A Proteinase 3 (PR3) Ab <1.0 Myeloperoxidase Ab <1.0 SS-A/Ro Antibody <1.0 NEG SS-B/La Antibody <1.0 NEG Sm (Hernandez) Antibody <1.0 NEG SM/ITALIAN TUTOR IgG Antibody <1.0 NEG Scl-70 Scleroderma Ab <1.0 NEG Double Strand DNA Ab <1 Complement C3 107 Complement C4 24 ECHO 01/2025 Conclusions: - The left ventricular systolic function is normal. The calculated ejection fraction is 65% by biplane method. - No obvious valvular pathology seen on this study. Findings Left Ventricle Normal left ventricular cavity size. There is normal left ventricular wall thickness. The left ventricular systolic function is normal. The calculated ejection fraction is 65% by biplane method. There is no evidence of regional wall motion abnormalities. Right Ventricle Normal right ventricular cavity size and systolic function. Atria Both atria are normal in size. Aortic Valve There is a normal trileaflet aortic valve. There is no aortic valve stenosis. There is trace (trivial) aortic valve regurgitation. Mitral Valve The mitral valve appears normal. There is trace mitral valve regurgitation. There is no mitral valve stenosis. Pulmonic Valve The pulmonic valve is likely normal. Tricuspid Valve There is no tricuspid valve regurgitation. Tricuspid regurgitation envelope is inadequate for calculation of right ventricular systolic pressure. Great Vessels The asc aorta is normal in size. Venous The inferior vena cava is normal in size and collapses greater than 50% with inspiration. Pericardium/Pleural There is no evidence of pericardial effusion ECHO 02/2025 Conclusions: - Faxmv-hk-jljoxyzf circumferential pericardial effusion noted. No evidence of tamponade. Findings Venous The inferior vena cava is normal in size and collapses greater than 50% with inspiration. Pericardium/Pleural There are no definitive echocardiographic findings of tamponade physiology. Xpyof-rh-vethiegq circumferential pericardial effusion noted. No evidence of tamponade. Measurements -upto 1.3cm over Left ventricle; 1.4cm over right ventricle. Prior Study Comparison Changes noted compared to prior study dated: 01/18/2025. Pericardial effusion noted. ECHO 02/2025 Conclusions: - Large pericardial effusion present with IVC plethora and RV diastolic compression. Findings Pericardium/Pleural There is a large circumferential pericardial effusion. The inferior vena cava is dilated with reduced respiratory variability. No discernable variation of the mitral valve and tricuspid valve Doppler velocities with respiration. Diastolic collapse of the right ventricle is seen. Prior Study Comparison Changes noted compared to prior study dated: 02/06/2025. Pericardial effusion in his large Chest CTA 02/2025 Findings: Heart size within normal limits. Moderate pericardial effusion up to 1.5 cm in thickness posteriorly. The thoracic aorta is normal caliber. No acute pulmonary embolus. The visualized thyroid and mediastinum are unremarkable. Small bilateral pleural effusions with mild dependent atelectasis both lungs. Trace perisplenic ascites. The bones are intact. IMPRESSION: 1. No acute pulmonary embolus. 2. Small bilateral pleural effusions, moderate pericardial effusion, and trace perisplenic ascites of uncertain etiology. Follow-up as needed. Abdomen/Pelvis CT 02/2025 Findings: There are bilateral pleural effusions with lower lobe consolidation, possible pneumonia or atelectasis. There is a pericardial effusion with maximum thickness of 1.8 cm. Unremarkable gallbladder and solid organs. No urolithiasis. No bowel obstruction, pneumoperitoneum, or pneumatosis. Pelvic contents unremarkable. Normal appendix. The bones are intact. IMPRESSION: 1. Pericardial effusion. 2. Bilateral lower lobe consolidation with pleural effusions, differential considerations noted. Assessment & Plan Assessment & Plan (1) Idiopathic pericarditis: Comment: 02/2025. Pericardial effusion, JACOB 1:80 Code(s): I30.0 - Acute nonspecific idiopathic pericarditis Category: Medical Qualifiers: Chronicity: acute Qualified Code(s): I30.0 - Acute nonspecific idiopathic pericarditis Plan: #Idiopathic pericarditis, likely immune mediated Patient is a 69-year-old male here today for hospital follow up after admission for pericardial effusion His workup included a positive JACOB (1:80) with negative sub serologies At this time patient does not fully meet criteria for lupus: acute pericarditis 6 points without any other points (a diagnosis of lupus requires 10 points) However given his negative respiratory viral panel, and positive JACOB this may be immune mediated/undifferentiated connective tissue disease It is concerning that he had pericardial effusion, pleural effusions, and perisplenic ascites. No masses were seen on the CTA or the CT abdomen and the pericarditis can cause perisplenic ascites in rare cases so malignancy is less likely He continues to deny any other symptoms related to lupus or any other connective tissue disease We will repeat his blood work. Because if there are further points and he meets full criteria for lupus or any other connective tissue disease he we will need lifelong treatment. At this point we will move forward with treating him as idiopathic pericarditis likely immune mediated. Unable to do Hydroxychloroquine 200mg due to interaction with digoxin which patient is currently taking Will proceed with azathioprine, we will check TPMT prior to starting this medication Plan - Check labs - Start Azathioprine 150mg once TPMT normal - RTC 3 months (2) Encounter for monitoring azathioprine therapy: Code(s): Z51.81 - Encounter for therapeutic drug level monitoring; Z79.624 - intermission coordinator (current) use of inhibitors of nucleotide synthesis Plan: #Long-term use of azathioprine Discussed with patient the benefits and risks of azathioprine for the management of the rheumatic condition Benefits include: - Reduced pain, maintenance of remission and reduction of flares Risks include: - Bone marrow suppression, GI upset, lymphoma, hepatotoxicity, pancreatitis, hypersensitivity syndrome TPMT enzyme: Drug monitoring: CBC every 4 weeks for the 1st 3 months then CBC BMP LFTs every 3 months Avoid concomitant sulfasalazine, allopurinol or febuxostat Plan Patient is post hospitalization. I spent 45 minutes reviewing the record and labs, taking a history, examining the patient, discussing the treatment plan, ordering diagnostic work up and documenting in the medical record Orders: Orders Comprehensive Met. Panel Today M32.9 - Systemic lupus erythematosus, unspecified C Reactive Protein Today M32.9 - Systemic lupus erythematosus, unspecified Erythrocyte Sedimentation Rate Today M32.9 - Systemic lupus erythematosus, unspecified Complement C4 Today M32.9 - Systemic lupus erythematosus, unspecified Anti DNA DS Antibody Today M32.9 - Systemic lupus erythematosus, unspecified DNA Double Stranded-Crithidia Today M32.9 - Systemic lupus erythematosus, unspecified UA ClnCatch+Micro w/rflx Cult Today M32.9 - Systemic lupus erythematosus, unspecified Prometheus TPMT Enzyme Today M32.9 - Systemic lupus erythematosus, unspecified Complete Blood Count Auto Diff Today M32.9 - Systemic lupus erythematosus, unspecified Complement C3 Today M32.9 - Systemic lupus erythematosus, unspecified Sm Sm/ITALIAN TUTOR Antibodies Today M32.9 - Systemic lupus erythematosus, unspecified Protein Creatinine Ratio, Ur Today M32.9 - Systemic lupus erythematosus, unspecified Sjogren's Antibodies Today M32.9 - Systemic lupus erythematosus, unspecified Scleroderma 12 Panel Today M32.9 - Systemic lupus erythematosus, unspecified Coding Level of Care Code Est Pt Level 5 (50516) Complex EM visit Add On G2211 Diagnoses Acute idiopathic pericarditis I30.0 Chronicity: acute Encounter for monitoring azathioprine therapy Z51.81; Z79.624
[2025-03-21 15:03] VITALS: BP 122/80; PULSE 89; O2SAT 98; BMI 23.2
--- OUTSIDE RECORDS SUMMARY | 2025-03-22 12:46 | XMS_ITS | Encounter Summary ---
Author Organization [facility] Address [address] [place] [address] Phone Care Team Providers Care Bias Binding Cutter Name Role Phone Khadra Romo MD Primary Care Provider [phone] John Chopra MD Unavailable [phone] Lenny Pendleton MD Unavailable Encounter Details Date Type Department Care Team (Late st Contact Info) Description 03/01/2025 Procedure Pass [facility] Endoscopy Admitting Dept Virtual Department [address] [place], [place] [id number] Social History Tobacco Use Types Packs/Day Years [...] Description 04/10/2025 11:00 AM EST Office Visit [facility] Neurology Neuromuscular [place] [address] [facility], [address] [place] [address] Lenny Pendleton MD [address] [facility] [address] [place] [address] [email or web address] 04/28/2025 1:00 AM EST Appointment [facility] [address] [place] [phone] Yuliana Givens RN [address] [place] [address] 05/03/2025 11:00 AM EST Office Visit [facility] Cardiac Arrhythmia Service [address] [facility], 5th Floor, [address] [place] [address] Jed Guido MD, MPH [address] [facility] [address] [place] [address] 06/09/2025 1:00 PM EST Office Visit [facility] Department of Neurology [address] [facility], 8th Floor, [address] [place] [address] John Chopra MD [address] [facility] [address] [place] [phone] [email or web address] 07/21/2025 8:40 AM EDT Office Visit [facility] [place] [facility] [address] [facility] [address] [place] [address] Khadra Romo MD [address] [facility] [address] [place] [address] 08/25/2025 11:00 AM EDT Office Visit [facility] [address] [facility], [address] [place] [address] Clementine Brower MD [address] [place] [address] [email or web address] documented as of this encounter Visit Diagnoses Not on filedocumented in this encounter Additional Health Concerns Assessment Noted Time PHQ-9 Depression Total Score: 12 024 3:46 PM EST PHQ-2 Depression Total Score: 1 06/28/19 25 2:08 PM EST documented as of this encounter Care Teams Bias Binding Cutter Relationship Specialty Start Date End Date Khadra Romo MD [address] [address] [email or web address] PCP - General Family Medicine 06/12/21 John Chopra MD [address] [place] [phone] [email or web address] Neurology 06/17/23 Lenny Pendleton MD [address] [place] [address] [address] [place] [address] [email or web address] 06/17/23 documented as of this encounter Additional Source Comments The information contained in this document represents components of the legal health record. It is not the complete legal health record.[facility]
--- OUTSIDE RECORDS SUMMARY | 2025-03-22 12:46 | XMS_ITS | Encounter Summary ---
Author Organization [facility] Address [address] [place] [address] Phone Care Team Providers Care Economic Geographer Name Role Phone Khadra Romo MD Primary Care Provider [phone] John Chopra MD Unavailable [phone] Lenny Pendleton MD Unavailable Reason for Visit * Auth/Cert (Routine) Specialty Diagnoses / Procedures Referred By Contdigna t Referred To Contact Diagnoses Screen for colon cancer Screen for colon cancer [Z12.11] Procedures NJ COLONOSCOPY FLX DX W/COLLJ SPEC WHEN PFRMD NJ COLONOSCOPY W/BIOPSY SINGLE/MULTIPLE NJ COLSC FLX W/RMVL OF TUMOR POLYP LESION SNARE TQ COLONOSCOPY Referral ID Status Reason Start Date Expiration Date Visits Re quested Visits Authorized [id number] 1 1 Encounter Details Date Type Department Care Team (Late st Contact Info) Description 03/01/2025 Hospital Encounter [facility]oscopy Admitting Dept Virtual Department [address] [place] [address] Shai yAon MD [address] [place] [address] [phone] Social History Tobacco Use Types Packs/Day Years [...] Description 04/10/2025 11:00 AM EST Office Visit [facility] Neurology Neuromuscular [address], [address] [place] [address] Lenny Pendleton MD [address] [facility] [address] [place] [address] [email or web address] 04/28/2025 1:00 AM EST Appointment [facility] [address] [place] [phone] Yuliana Givens RN [address] [place] [address] [email or web address] 05/03/2025 11:00 AM EST Office Visit [facility] Cardiac Arrhythmia Service [address] [facility] 5th [address], [address] [place] [address] Jed Guido MD, MPH [address] [facility] [address] [place] [address] [email or web address] 06/09/2025 1:00 PM EST Office Visit [facility] Department of Neurology [address] [facility] 8th Floor, [address] [place] [address] John Chopra MD [address] [facility] [address] [place] [phone] [email or web address] 07/21/2025 8:40 AM EDT Office Visit [facility] [place] [facility] [address] [facility] [address] [place] [address] Khadra Romo MD 15 [facility] [address] [place] [address] [email or web address] 08/25/2025 11:00 AM EDT Office Visit [facility] Cardiology [facility] [address] [facility], [address] [place] [address] Clementine Brower MD [address] [facility], [address] [place] [address] [email or web address] documented as of this encounter Visit Diagnoses Not on filedocumented in this encounter Additional Health Concerns Assessment Noted Time PHQ-9 Depression Total Score: 12 024 3:46 PM EST PHQ-2 Depression Total Score: 1 06/28/19 25 2:08 PM EST documented as of this encounter Care Teams Economic Geographer Relationship Specialty Start Date End Date Khadra Romo MD [address] [address] [email or web address] PCP - General Family Medicine 06/12/21 John Chopra MD [address] [facility] [address] [place] [phone] [email or web address] Neurology 06/17/23 Lenny Pendleton MD [address] [place] [address] [address] [place] [address] [email or web address] 06/17/23 documented as of this encounter Additional Source Comments The information contained in this document represents components of the legal health record. It is not the complete legal health record.[facility]
--- OUTSIDE RECORDS SUMMARY | 2025-03-22 12:47 | XMS_ITS | Clinical Summary ---
Author Organization [facility] Address [address] [facility] [address] [place] [address] Phone Care Team Providers Care Route Specialist Name Role Phone Khadra Romo MD Primary Care Provider John Chopra MD Unavailable [phone] Lenny Pendleton MD Unavailable Allergies No known [...] 2 4 03/03/20 Discontinu ed(No longer taking) melatonin [address] 1 tablet (5 mg total) under the tongue nightly at bedtime as needed (insomnia). 90 tablet 1 5 03/03/20 Discontinu ed(No longer taking) therapeutic multivitamin tablet Take 1 tablet by mouth daily. 03/03/20 Discontinu ed(No CancelRX) omeprazole (PRILOSEC) 20 MG [...] green, indicating digoxin toxicity. - Referral to [facility] for further evaluation and management. - Discussed possibility of ablation procedure to potentially alleviate atrial flutter. Orders: Ambulatory referral to [facility] - Employed Practices Assessment & Plan [...] only a temporary condition. - Appointment with medicare biller on 02/20/2025 for further evaluation, including blood work, echocardiogram, and Holter monitor. Discussed that ablation can sometimes obviate the need for rate or rhythm control agents. If blood thinners are not tolerated or safe (in light of his regular falls), a Watchman procedure may be indicated. I encouraged him to speak with his medicare biller about whether these procedures may be appropriate [...] another secondary cause. I defer to his medicare biller but I do not think this is a magallon course. Assessment & Plan (02/10/2025 3:22 PM EDT): - Referred to stroke clinic at [facility] with appointment on 03/15/2025. - Emphasized importance of managing atrial fibrillation to prevent further cerebrovascular events. - Continuation of Eliquis to prevent another stroke. Assessment & Plan (01/27/2025 2:48 PM EDT): Reports no residual deficits now and had none at time of hospital discharge. Continue baby aspirin, aggressive statin therapy. Referred to neurologist Dr. Jimenes at [facility], whom patient has seen before. Recommend discussing an alert button with his local other services organization Orders: External Referral to Neurology ([facility]) Acute idiopathic pericarditis 01/27/2025 Assessment & Plan (03/03/2025 3:57 PM EDT): Continue colchicine Orders: Ambulatory referral to [facility] - Employed Practices Assessment & Plan [...] for him to see Dr. Brower in [place] Cervical myelopathy 05/27/2024 Assessment & Plan (01/12/2025 [...] complete it and send it to the [facility]. I offered him a shower chair [...] future, such as a planned trip to [place] that he mentioned, he should make his [...] Encounters Date Type Department Care Team Description 03/15/2025 3:00 PM EST Office Visit [facility] Department of Neurology [address] [facility], 8th Floor, [address] [place] [address] Luanne Rodríguez MD History of stroke (Primary Dx); Atrial flutter, unspecified type 03/15/2025 Telephone [facility] [address] [place] [address] Khadra Romo MD [place] [place] 03/14/2025 11:45 AM EST Home Care Visit [facility] [address] [place] [address] Carmella Edwards, PT PT EVALUATION 03/14/2025 Telephone [facility] [place] [facility] [address] [facility] [address] [place] [address] Khadra Romo MD [facility] PT 03/13/2025 Ancillary Orders [facility] [address] [place] [address] Unknown, Unknown, 03/13/2025 Ancillary Orders [facility] [address] [place] [address] Unknown, Unknown, 03/13/2025 Ancillary Orders [facility] [address] [place] [address] Unknown, Beatriz, 03/13/2025 Ancillary Orders [facility] [address] [place] [address] Unknown, Beatriz, 03/13/2025 Ancillary Orders [facility] [address] [place] [address] Unknown, Beatriz, 03/13/2025 Telephone [facility] Department of Neurology [address] [facility], 8th Floor, [address] [place] [address] Unknown, Unknown, 03/09/2025 Orders Only [facility] [address] [place] [address] Provider, MD Ramona 03/06/2025 Home Care Visit [facility] [address] [place] [address] Yuliana Givens RN CASE COMMUNICATION 03/06/2025 Home Care Visit [facility] [address] [place] [address] Daija Lechuga, OT TELEPHONE ENCOUNTER 03/03/2025 10:40 AM EDT Office Visit [facility] [address] [place] [address] Khadra Romo MD Atrial fibrillation with RVR (Primary Dx); Acute idiopathic pericarditis; Ischemic stroke of frontal lobe; Orthostatic hypotension; Parkinsonism, unspecified Parkinsonism type 03/03/2025 Plan of Care Documentation [facility] [address] [place] [address] 03/02/2025 10:30 AM EDT Home Care Visit [facility] [address] [place] [address] Yuliana Givens, RN SN OASIS START OF CARE (SOC) 03/01/2025 Telephone [facility] [address] [place] [address] Khadra Romo MD Medication Refill (Pt did not say which med on VM) 03/01/2025 Procedure Pass [facility] Endoscopy Admitting Dept Virtual Department [address] [place] [address] 03/01/2025 Hospital Encounter [facility] Endoscopy Admitting Dept Virtual Department [address] [place] [address] Shai Ayon MD 02/28/2025 Orders Only [facility] [address] [place] [address] Homehealth, Interface MD Jennifer 02/27/2025 Orders Only [address] [place] [address] Ramona Rodriguez MD 02/24/2025 - 02/24/2025 11:59 PM EDT Hospital Encounter [facility] [address] [place] [address] Unknown, Unknown, Discharge Disposition: Home or Self Care 02/23/2025 Telephone [facility] [place] [facility] [address] [place] [address] Khadra Romo MD Inpatient Admission 02/20/2025 - 02/20/2025 11:59 PM EDT Hospital Encounter [facility] [address] [place] [address] Unknown, Unknown, Discharge Disposition: Home or Self Care 02/20/2025 Telephone [facility] [address] [place] [address] Hilary Goddard cancel procedure 02/20/2025 Orders Only [address] [place] [address] Ramona Rdoriguez MD 02/10/2025 10:40 AM EDT Office Visit [facility] [place] [facility] [address] [place] [address] Khadra Romo MD Atrial fibrillation with RVR (Primary Dx); Ischemic stroke of frontal lobe; Pneumonia of left lower lobe due to infectious organism 02/10/2025 Orders Only [facility] [address] [place] [address] Ramona Rodriguez MD 02/09/2025 9:47 AM EDT - 02/09/2025 11:59 PM EDT Hospital Encounter [facility] Phleb [address] [place] [address] Khadra Romo MD Discharge Disposition: Home or Self Care 02/07/2025 Telephone [facility] [place] [facility] [address] [place] [address] Khadra Romo MD TCM Visit ([facility] + Unable to Schedule) 02/03/2025 Telephone [facility] [address] [place] [address] Khadra Romo MD Chest Pain 02/03/2025 Orders Only [address] [place] [address] Ramona Rodriguez MD 02/02/2025 Orders Only [facility] Department of Neurology [address] [facility], 8th Floor, [address] [place] [address] Debra Stapleton, RN REM sleep behavior disorder (Primary Dx) 01/27/2025 11:20 AM EDT Office Visit [facility] [address] [place] [address] Khadra Romo MD Ischemic stroke of frontal lobe (Primary Dx); Orthostatic hypotension; Acute idiopathic pericarditis 01/19/2025 Telephone [facility] [address] [place] [address] Kelley Rubio TCM Visit 01/18/2025 Orders Only [address] [place] [address] Beatriz Henderson MD 01/17/2025 12:05 AM EDT - 01/17/2025 11:59 PM EDT Hospital Encounter [facility] [address] [place] [address] Beatriz, MD Beatriz Discharge Disposition: Home or Self Care 01/17/2025 Hospital Encounter [facility] [address] [place] [address] Unknown, MD Beatriz Discharge Disposition: Home or Self Care 01/17/2025 Hospital Encounter [facility] [address] [place] [address] Unknown, Unknown, MD Discharge Disposition: Home or Self Care 01/17/2025 Telephone [facility] [address] [place] [address] Khadra Romo MD [place] Sudden Altered mental status 01/16/2025 Telephone [facility] [address] [place] [address] Maddison Irizarry CNP Patient Returned Call 01/16/2025 Orders Only [facility] [address] [place] [address] Beatriz, MD Beatriz 01/12/2025 10:40 AM EDT Telemedicine [facility] Primary [facility] [address] [place] [address] Khadra Romo MD Hypermagnesemia (Primary Dx); Parkinsonism, unspecified Parkinsonism type; Cervical myelopathy 12/23/2024 Telephone [facility] [address] [place] [address] Khadra Romo MD Labs Only 12/20/2024 1:30 PM EDT Office Visit [facility] [address] 3rd Floor, [address] [place] [address] Laura Ayala CNP Orthostatic hypotension (Primary Dx); Lightheadedness; Cold feet from Last 3 Months Immunizations Immunization Administration Dates Next Due [id number] FORMULATION 05/28/2009 Hepatitis A, Adult 08/19/2023 Hepatitis [...] F) 03/15/2025 2:57 PM EST Respiratory Rate 14 03/14/2025 12:01 PM EST Oxygen Saturation 99% 03/15/2025 2:57 PM EST Inhaled Oxygen Concentration - - Weight 76.7 kg (169 lb) 03/15/2025 2:57 PM EST Height 182.9 cm (6' 0.01 ) 03/15/2025 2:57 PM ES T Body Mass Index 22.92 03/15/2025 2:57 PM EST Plan of Treatment Upcoming Encounters Date Type Department Care Team (Late st Contact Info) Description 04/10/2025 11:00 AM EST Office Visit [facility] Neurology Neuromuscular [address], [address] [place] [address] Lenny Pendleton MD [address] [facility] [address] [place] [address] [email or web address] 04/28/2025 1:00 AM EST Appointment [facility] [address] [place] [phone] Yuliana Givens, ANN-MARIE [address] [place] [address] 05/03/2025 11:00 AM EST Office Visit [facility] Cardiac Arrhythmia Service [address], 5th [address], [address] [place] [address] Jed Guido MD, MPH [address] [facility] [address] [place] [address] 06/09/2025 1:00 PM EST Office Visit [facility] Department of Neurology [address] [facility], 8th Floor, [address] [place] [address] John Chopra MD [address] [facility] [address] [place] [phone] [email or web address] 07/21/2025 8:40 AM EDT Office Visit [facility] [place] [facility] [address] [facility] [address] [place] [address] Khadra Romo MD [address] [facility] [address] [place] [address] [email or web address] 08/25/2025 11:00 AM EDT Office Visit [facility] Cardiology [facility] [address] [facility], [address] [place] [address] Clementine Brower MD [address] [place] [id number] [email or web address] Health Maintenance Due Date Last Done Comments [...] STATUS SCREENING (Once After 26 Yrs) Completed 03/15/2025 HIB VACCINES Aged Out No longer eligi ble based on patient's age to complete this topic MENINGOCOCCAL VACCINES (ACWY) Aged Out No longer eligible based on patient's age to complete this topic MENINGOCOCCAL VACCINES (B) Aged Out N o longer eligible based on patient's age to complete this topic Medical Devices Implanted Type Area Incident Analyst Device Identifier Shelf Expiration Date Model / Serial / Lot Cranial Plate [id number] 20 Hole Bone Mandibular Trauma Adaption Straight Titanium - [id number] Implanted:Qty: 1 on 05/27/2024 by Margoth Velásquez MD at [facility] N/A: Posterior Cervical [employer] 449.020 / / Screw Bone 2x5mm Cortex Titanium Self Drilling Plusdrive Recess Single - [id number] Implanted:Qty: 3 on 05/27/2024 by Margoth Velásquez MD at [facility] N/A: Posterior Cervical [employer] [id number] / / Screw Bone 2x6mm Cranial Cortex Titanium Self Tapping Cruciform Recess Gold - [id number] Implanted:Qty: 8 on 05/27/2024 by Margoth Velásquez MD at [facility] N/A: Posterior Cervical [employer] 401.063E / / Procedures Procedure Name Priority Date/Time Associated Diagnosis Comments OUTSIDE LAB Routine 03/08/2025 1:33 PM EST OUTSIDE IMAGING Routine 02/27/2025 11:38 AM EDT OUTSIDE IMAGING Routine 02/24/2025 10:10 AM EDT OUTSIDE PROCEDURE Routine 02/24/2025 10: 07 AM EDT MRI BRAIN OUTSIDE (NO INTERPRETATION) Routine 02/24/2025 12:00 AM EDT OUTSIDE IMAGING Routine 02/23/2025 11:37 AM EDT OUTSIDE IMAGING Routine 02/20/2025 2:30 PM EDT OUTSIDE IMAGING Routine 02/20/2025 2:[address] HEAD OUTSIDE (NO INTERPRETATION) Routine 02/20/2025 12:00 AM EDT OUTSIDE IMAGING Routine 02/19/2025 10:10 AM EDT OUTSIDE IMAGING Routine 02/09/2025 10:51 AM EDT BASIC METABOLIC PANEL (BMP) Routine 02/09/2025 10:01 AM EDT Hypermagnesemia MAGNESIUM Routine 02/09/2025 10:01 AM EDT Hypermagnesemia PARATHYROID HORMONE (PTH) Routine 02/09/2025 10:01 AM EDT Hypermagnesemia OUTSIDE IMAGING Routine 02/02/2025 10:18 AM EDT OUTSIDE IMAGING Routine 01/17/2025 8:[address] HEAD OUTSIDE (NO INTERPRETATION) Routine 01/17/2025 12:[address] HEAD OUTSIDE (NO INTERPRETATION) Routine 01/17/2025 12:00 AM EDT MRI BRAIN OUTSIDE (NO INTERPRETATION) Routine 01/17/2025 12:00 AM EDT OUTSIDE IMAGING Routine 01/14/2025 9:50 AM EDT OUTSIDE IMAGING Routine 01/14/2025 9:47 AM EDT HEPATITIS B SURFACE ANTIGEN Routine 06/29/2024 9:31 AM EST Need for hepatitis B screening test from Last 3 Months or Most Recently Relevant to Health Maintenance Results * Outside Lab (Non-MGB) (03/08/2025 1:33 PM EST) us Historical Provider LAB BLOOD BKR ORDERABLES Final Result * Outside Imaging Report Only (02/27/2025 11:38 AM EDT) us Historical Provider IMG XR CHEST Final Res ult * Outside Imaging Report Only (02/24/2025 10:10 AM EDT) Historical Provider IMG XR CHEST Final Res ult * Outside Procedure (02/24/2025 10:07 AM EDT) Historical Provider PROCEDURE/MINOR SURGICAL PERFORMABLES Final Result * MRI Brain Outside (No Interpretation) (02/24/2025 12:00 AM EDT) Narrative [facility] IMG INTERFACES - 03/13/2025 9:32 AM EST This study is for PACS storage only and not for interpretation. us Unknown Unknown IMG OUTSIDE IMAGING W/OUT INT ERPRETATION Final Result Performing Organization Address City/[facility] de Phone Number [facility] IMG INTERFACES * Outside Imaging Report Only (02/23/2025 11:37 AM EDT) Historical Provider IMG XR CHEST Final Res ult * Outside Imaging Report Only (02/20/2025 2:30 PM EDT) Historical Provider IMG XR CHEST Final Res ult * Outside Imaging Report Only (02/20/2025 2:08 PM EDT) Result [facility] Historical Provider IMG XR CHEST Final Res ult * CT Head Outside (No Interpretation) (02/20/2025 12:00 AM EDT) Narrative [facility] IMG INTERFACES - 03/13/2025 9:32 AM EST This study is for PACS storage only and not for interpretation. us Unknown Unknown MD IMG OUTSIDE IMAGING W/OUT INT ERPRETATION Final Result Performing Organization Address City/[facility] Co de Phone Number [facility] IMG INTERFACES * Outside Imaging Report Only (02/19/2025 10:10 AM EDT) Historical Provider IMG XR CHEST Final Res ult * Outside Imaging Report Only (02/09/2025 10:51 AM EDT) us Historical Provider MD IMG XR CHEST Final Res ult * Parathyroid hormone (PTH) (02/09/2025 10:01 AM EDT) PARATHYROID HORMONE 42 15 - 65 pg/mL [facility] Blood 02/09/2025 10:0 1 AM EDT 02/09/2025 10:06 AM EDT Khadra Romo MD LAB BLOOD BKR ORDERABLES Fin al Result [address] [address] * Magnesium (02/09/2025 10:01 AM EDT) Pathologist [facility] MAGNESIUM 2.2 1.6 - 2.6 mg/dL [facility] Blood 02/09/2025 10:0 1 AM EDT 02/09/2025 10:06 AM EDT Khadra Romo MD LAB BLOOD BKR ORDERABLES Fin al Result [address] [address] * (ABNORMAL) Basic metabolic panel (02/09/2025 10:01 AM EDT) Pathologist [facility] SODIUM 138 133 - 146 mmol/L [facility] CHLORIDE 103 96 - 108 mmol/L [facility] POTASSIUM 4.1 3.3 - 5.1 mmol/L [facility] CO2 24 21 - 35 mmol/L [facility] BUN 15 6 - 19 mg/dL [facility] CREATININE 0.80 0.5 - 1.5 mg/dL [facility] GLUCOSE 104(H) 70 - 99 mg/dL [facility] CALCIUM 8.2(L) 8.4 - 10.3 mg/dL [facility] EGFR 95 >59 mL/min/1.7 3m2 [facility] Comment:Estimated glomerular filtration rate calculated using the CKD-EPI refit equation. ANION GAP 15 10 - 20 mmol/L [facility] Blood 02/09/2025 10:0 1 AM EDT 02/09/2025 10:06 AM EDT us Khadra Romo MD LAB BLOOD BKR ORDERABLES Fin al Result Performing Organization Address [facility] de Phone Number [address] [address] * Outside Imaging Report Only (02/02/2025 10:18 AM EDT) us Historical Provider IMG XR CHEST Final Res ult * Outside Imaging Report Only (01/17/2025 8:07 AM EDT) us Unknown Unknown IMG XR CHEST Edited Result - Final * CT Head Outside (No Interpretation) (01/17/2025 12:05 AM EDT) Narrative [facility] IMG INTERFACES - 03/13/2025 9:33 AM EST This study is for PACS storage only and not for interpretation. us Unknown Unknown MD IMG OUTSIDE IMAGING W/OUT INT ERPRETATION Final Result Performing Organization Address [facility] de Phone Number [facility] IMG INTERFACES * CT Head Outside (No Interpretation) (01/17/2025 12:00 AM EDT) Narrative [facility] IMG INTERFACES - 03/13/2025 9:32 AM EST This study is for PACS storage only and not for interpretation. us Unknown Unknown MD IMG OUTSIDE IMAGING W/OUT INT ERPRETATION Final Result Performing Organization Address [facility] de Phone Number [facility] IMG INTERFACES * MRI Brain Outside (No Interpretation) (01/17/2025 12:00 AM EDT) Narrative [facility] IMG INTERFACES - 03/13/2025 9:32 AM EST This study is for PACS storage only and not for interpretation. us Unknown Unknown IMG OUTSIDE IMAGING W/OUT INT ERPRETATION Final Result [facility] IMG INTERFACES * Outside Imaging Report Only (01/14/2025 9:50 AM EDT) us Unknown Unknown MD IMG XR CHEST Edited Result - Final * Outside Imaging Report Only (01/14/2025 9:47 AM EDT) us Unknown Unknown IMG XR CHEST Edited Result - Final * Hepatitis B surface antigen (06/29/2024 9:31 AM EST) HBV SURFACE ANTIGEN NON-REACTI VE NON-REACTI VE [facility] Blood 06/29/2024 9:3 1 AM EST 06/29/2024 9:39 AM EST us Khadra Romo MD LAB BLOOD BKR ORDERABLES Fin al Result [facility] [address] [place] [address] from Last 3 Months or Most Recently [...] Advance Directives For more information, please contact: [phone] (9AM - 5PM [facility], Thursday-Thursday) Documents on File Type Date Recorded 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 Healthcare Proxy 07/22/2024 * Full Code (Latest Code Status on File) Date Activated Date Inactivated Comments 05/27/2024 11:53 AM Question Answer Comments Code Status Confirmed With: Other (specify below ) Code Discussion Comments: periop Care Teams Route Specialist Relationship Specialty Start Date End Date Khadra Romo MD [address] [place] [address] PCP - General Family Medicine 06/12/21 John Chopra MD [address] [place] [phone] [email or web address] 06/17/23 Lenny Pendleton MD [address] [place] [address] [address] [place] [address] [email or web address] 06/17/23 Additional Source Comments The information contained in this document represents components of the legal health record. It is not the complete legal health record.[facility]
--- OUTSIDE RECORDS SUMMARY | 2025-03-22 12:47 | XMS_ITS | Encounter Summary ---
Author Organization [facility] Address [address] [place] [address] Phone Care Team Providers Care Vacuum Kettle Cook Name Role Phone Khadra Romo MD Primary Care Provider [phone] John Chopra MD Unavailable [phone] Lenny Pendleton MD Unavailable Encounter Details Date Type Department Care Team (Late st Contact Info) Description 03/09/2025 Orders Only [facility] Medicine [address] [place] [address] [place] [address] Provider, MD Ramona [facility] [address] Social History Tobacco Use Types [...] Description 04/10/2025 11:00 AM EST Office Visit [facility] Neurology Neuromuscular [place] 52 [facility], [address] [place] [address] Lenny Pendleton MD 165 [facility] [address] [place] [address] [email or web address] 04/28/2025 1:00 AM EST Appointment [facility] 30 [place] [phone] Yuliana Givens RN 168 [place] [address] [email or web address] 05/03/2025 11:00 AM EST Office Visit [facility] Cardiac Arrhythmia Service 32 [facility], 5th Floor, [address] [place] [address] Jed Guido MD, MPH 55 [facility] [address] [place] [address] [email or web address] 06/09/2025 1:00 PM EST Office Visit [facility] Department of Neurology 55 [facility], 8th Floor, [address] [place] [address] John Chopra MD 55 [facility] 835 [place] [phone] [email or web address] 07/21/2025 8:40 AM EDT Office Visit [facility] [place] [facility] 15 [facility] [address] [place] [address] Khadra Romo MD 15 [facility] [address] [place] [address] [email or web address] 08/25/2025 11:00 AM EDT Office Visit [facility] Cardiology [place] [facility] [address] [facility], [address] [place] [address] Clementine Brower MD [address] [place] [address] [email or web address] documented as of this encounter Procedures Procedure Name Priority Date/Time Associated Diagnosis Comments OUTSIDE LAB Routine 03/08/2025 1:33 PM EST documented in this encounter Results * Outside Lab (Non-MGB) (03/08/2025 1:33 PM EST) us Historical Provider LAB BLOOD BKR ORDERABLES Final Result documented in this encounter Visit Diagnoses Not on filedocumented in this encounter Additional Health Concerns Assessment Noted Time PHQ-9 Depression Total Score: 12 024 3:46 PM EST PHQ-2 Depression Total Score: 1 06/28/19 25 2:08 PM EST documented as of this encounter Care Teams Vacuum Kettle Cook Relationship Specialty Start Date End Date Khadra Romo MD [address] [place] [address] [email or web address] PCP - General Family Medicine 06/12/21 John Chopra MD [address] [place] [phone] [email or web address] [email or web address] 06/17/23 Lenny Pendleton MD [address] [place] [address] 820 [place], [place] [phone] [email or web address] [email or web address] 06/17/23 documented as of this encounter Additional Source Comments The information contained in this document represents components of the legal health record. It is not the complete legal health record.[facility]
--- OUTSIDE RECORDS SUMMARY | 2025-03-22 12:47 | XMS_ITS | Encounter Summary ---
Author Organization [facility] Address [address] [place] [address] Phone Care Team Providers Care Stage Technician Name Role Phone Khadra Romo MD Primary Care Provider [phone] John Chopra MD Unavailable Lenny Pendleton MD Unavailable Encounter Details Date Type Department Care Team (Late st Contact Info) Description 11/10/2023 Procedure Pass [facility], [address] [address] Social History Tobacco Use Types Packs/Day Years [...] high school, GED, job training, learning the Kyrgyz language, technical skills, or developing parenting skills)? [...] Care Team (Janusz st Contact Info) Description 04/10/2025 11:00 AM EST Office Visit [facility] Neuromuscular [address], [address] [place] [address] Lenny Pendleton MD 165 [facility] [address] [place] [address] [email or web address] 04/28/2025 1:00 AM EST Appointment [facility] 30 [place] [address] Yuliana Givens RN 168 [place] [address] 05/03/2025 11:00 AM EST Office Visit [facility] Cardiac Arrhythmia Service 32 [facility], 5th Floor, [address] [place] [address] Jed Guido MD, MPH 55 [facility] [address] [place] [address] 06/09/2025 1:00 PM EST Office Visit [facility] Department of Neurology 55 [facility], 8th Floor, [address] [place] [address] John Chopra MD 55 [facility] 835 [place] [phone] [email or web address] 07/21/2025 8:40 AM EDT Office Visit [facility] [place] [facility] [address] [facility] [address] [place] [address] Khdara Romo MD 15 [facility] [address] [place] [address] [email or web address] 08/25/2025 11:00 AM EDT Office Visit [facility] 52 [facility], [address] [place] [address] Clementine Brower MD [address] [place] [address] [email or web address] documented as of this encounter Visit Diagnoses Not on filedocumented in this encounter Additional Health Concerns Assessment Noted Time PHQ-9 Depression Total Score: 12 024 3:46 PM EST PHQ-2 Depression Total Score: 4 06/23/19 24 11:49 PM EST documented as of this encounter Care Teams Stage Technician Relationship Specialty Start Date End Date Khadra Romo MD [address] [address] [email or web address] PCP - General Family Medicine 06/12/21 John Chopra MD 55 [facility] 835 [place] [phone] [email or web address] [email or web address] 06/17/23 Lenny Pendleton MD 165 [facility] 820 [place] [address] [email or web address] [email or web address] 06/17/23 documented as of this encounter Additional Source Comments The information contained in this document represents components of the legal health record. It is not the complete legal health record.[facility]
--- OUTSIDE RECORDS SUMMARY | 2025-03-22 12:47 | XMS_ITS | Encounter Summary ---
Author Organization [facility] Address [address] [place] [address] Phone Care Team Providers Care Liquid Sugar Fortifier Name Role Phone Khadra Romo MD Primary Care Provider [phone] John Chopra MD Unavailable [phone] Lenny Pendleton MD Unavailable Encounter Details Date Type Department Care Team (Late st Contact Info) Description 05/27/2024 Procedure Pass [facility]IVE [facility] 55 [place] [address] Social History Tobacco Use Types [...] high school, GED, job training, learning the Yi language, technical skills, or developing parenting skills)? [...] 1:00 PM EST Vonnie Blackmon RN * [place] Suicide Severity Rating Scale (Screener/Recent Self-Report) Question [...] 04/10/2025 11:00 AM EST Office Visit [facility] Neurology Neuromuscular [address], [address] [place] [address] Lenny Pendleton MD 165 [facility] [address] [place] [address] [email or web address] 04/28/2025 1:00 AM EST Appointment [facility] 30 [place] [phone] Yuliana Givens RN 168 [place] [address] [email or web address] 05/03/2025 11:00 AM EST Office Visit [facility] Cardiac Arrhythmia Service 32 [facility], 5th Floor, [address] [place] [address] Jed Guido MD, MPH 55 [facility] [address] [place] [address] [email or web address] 06/09/2025 1:00 PM EST Office Visit [facility] Department of Neurology 55 [facility], 8th Floor, [address] [place] [address] John Chopra MD 55 [facility] 835 [place] [phone] [email or web address] 07/21/2025 8:40 AM EDT Office Visit [facility] [place] [facility] 15 [facility] 201 [place] [address] Khadra Romo MD 15 [facility] 201 [place] [address] [email or web address] 08/25/2025 11:00 AM EDT Office Visit [facility] Cardiology [facility] 52 [facility], [address] [place] [address] Clementine Brower MD 40 [facility] 520 [place] [phone] [email or web address] documented as of this encounter Visit Diagnoses Not on filedocumented in this encounter Additional Health Concerns Assessment Noted Time PHQ-9 Depression Total Score: 12 024 3:46 PM EST PHQ-2 Depression Total Score: 4 06/23/19 24 11:49 PM EST documented as of this encounter Care Teams Liquid Sugar Fortifier Relationship Specialty Start Date End Date Khadra Romo MD [address] [address] [email or web address] PCP - General Family Medicine 06/12/21 John Chopra MD [address] [phone] [email or web address] Neurology 06/17/23 Lenny Pendleotn MD [address] [place] [address] 820 [place] [address] [email or web address] Neurology 06/17/23 documented as of this encounter Additional Source Comments The information contained in this document represents components of the legal health record. It is not the complete legal health record.[facility]
--- OUTSIDE RECORDS SUMMARY | 2025-03-22 12:47 | XMS_ITS | Encounter Summary ---
Author Organization [facility] Address [address] [place] [address] Phone Care Team Providers Care Certified Maintenance Welder Name Role Phone Khadra Romo MD Primary Care Provider [phone] John Chopra MD Unavailable [phone] Lenny Pendleton MD Unavailable Encounter Details Date Type Department Care Team (Late st Contact Info) Description 01/06/2024 Procedure Pass [facility] Scan - [address] [address] Social History Tobacco Use Types Packs/Day Years [...] high school, GED, job training, learning the Singaporean language, technical skills, or developing parenting skills)? [...] Care Team (Janusz herrera Contact Info) Description 04/10/2025 11:00 AM EST Office Visit [facility] Neurology Neuromuscular [address], [address] [place] [address] Lenny Pendleton MD 165 [facility] [address] [place] [address] [email or web address] 04/28/2025 1:00 AM EST Appointment [facility] 30 [place] [address] Yuliana Givens RN 168 [place] [address] 05/03/2025 11:00 AM EST Office Visit [facility] Cardiac Arrhythmia Service 32 [facility], 5th Floor, [address] [place] [address] Jed Guido MD, MPH 55 [facility] [address] [place] [address] 06/09/2025 1:00 PM EST Office Visit [facility] Department of Neurology 55 [facility], 8th Floor, [address] [place] [address] John Chopra MD 55 [facility] 835 [place] [phone] [email or web address] 07/21/2025 8:40 AM EDT Office Visit [facility] [place] [facility] 15 [facility] [address] [place] [address] Khadra Romo MD 15 [facility] [address] [place] [address] [email or web address] 08/25/2025 11:00 AM EDT Office Visit [facility] Cardiology [facility] [address] [facility], [address] [place] [address] Clementine Brower MD [address] [place] [address] [email or web address] documented as of this encounter Visit Diagnoses Not on filedocumented in this encounter Additional Health Concerns Assessment Noted Time PHQ-9 Depression Total Score: 12 024 3:46 PM EST PHQ-2 Depression Total Score: 4 06/23/19 24 11:49 PM EST documented as of this encounter Care Teams Certified Maintenance Welder Relationship Specialty Start Date End Date Khadra Romo MD 15 [facility] 201 [place] [address] [email or web address] PCP - General Family Medicine 06/12/21 John Chopra MD 55 [facility] 835 [place] [phone] [email or web address] Neurology 06/17/23 Lenny Pendleton MD 165 [facility] 820 [place] [address] [email or web address] [email or web address] 06/17/23 documented as of this encounter Additional Source Comments The information contained in this document represents components of the legal health record. It is not the complete legal health record.[facility]
--- OUTSIDE RECORDS SUMMARY | 2025-03-22 12:47 | XMS_ITS | Encounter Summary ---
Author Organization [facility] Address [address] [place] [address] Phone Care Team Providers Care Maintenance Chief Name Role Phone Khadra Romo MD Primary Care Provider [phone] John Chopra MD Unavailable [phone] Lenny Pendleton MD Unavailable Reason for Visit * Reason Onset Date Comments TCM Visit 01/19/2025 Encounter Details Date Type Department Care Team (Late st Contact Info) Description 01/19/2025 Telephone [employer] [facility] [address] [place] [address] Kelley [email or web address] TCM Visit Social History Tobacco Use Types [...] Summary: S/W Chilo, he was discharged from [facility] for CVA on 01/19. He is feeling well with no residual effects. Discharged with no services or devices but is advised to follow up with cardiology for pericarditis and neurology for CVA. He has a cardiology appointment but it isn't scheduled until August 2023, he is waiting to hear back from [facility] neurology re: appointment. He had several med changes including starting ASA and colchicine, changing statin, stopping Adderall and ibuprofen for the time being. 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 Thank you.) Thank you. documented in this encounter Plan of Treatment Upcoming Encounters Date Type Department Care Team (Late st Contact Info) Description 04/10/2025 11:00 AM EST Office Visit [facility] Neurology Neuromuscular [address], [address] [place] [address] Lenny Pendleton MD 165 [facility] [address] [place] [address] [email or web address] 04/28/2025 1:00 AM EST Appointment [facility] 30 [place] [phone] Yuliana Givens, ANN-MARIE 168 [place] [address] [email or web address] 05/03/2025 11:00 AM EST Office Visit [facility] Cardiac Arrhythmia Service 32 [facility], 5th Floor, [address] [place] [address] Jed Guido MD, MPH 55 [facility] [address] [place] [address] 06/09/2025 1:00 PM EST Office Visit [facility] Department of Neurology 55 [facility], 8th Floor, [address] [place] [address] John Chopra MD 55 [facility] 835 [place] [phone] [email or web address] 07/21/2025 8:40 AM EDT Office Visit [facility] [place] [facility] 15 [facility] 201 [place] [address] Khadra Romo MD 15 [facility] 201 [place] [address] [email or web address] 08/25/2025 11:00 AM EDT Office Visit [facility] Cardiology [facility] 52 [facility], [address] [place] [address] Clementine Brower MD 40 [facility] 520 [place] [phone] [email or web address] documented as of this encounter Visit Diagnoses Not on filedocumented in this encounter Additional Health Concerns Assessment Noted Time PHQ-9 Depression Total Score: 12 024 3:46 PM EST PHQ-2 Depression Total Score: 1 06/28/19 25 2:08 PM EST documented as of this encounter Care Teams Maintenance Chief Relationship Specialty Start Date End Date Khadra Romo MD [address] [address] [email or web address] PCP - General Family Medicine 06/12/21 John Chopra MD [address] [phone] [email or web address] Neurology 06/17/23 Lenny Pendleton MD [address] [place] [address] 820 [place] [address] [email or web address] Neurology 06/17/23 documented as of this encounter Additional Source Comments The information contained in this document represents components of the legal health record. It is not the complete legal health record.[facility]
--- OUTSIDE RECORDS SUMMARY | 2025-03-22 12:47 | XMS_ITS | Encounter Summary ---
Author Organization [facility] Address [address] [facility] [address] [place] [address] Phone Care Team Providers Care Lining Stamper Name Role Phone Khadra Romo MD Primary Care Provider [phone] John Chopra MD Unavailable [phone] Lenny Pendleton MD Unavailable Reason for Referral * Consultation (Routine) - New Request Specialty Diagnoses / Procedures Referred By Senthil wise Referred To Contact Neurology Diagnoses Parkinsonism, unspecified Parkinsonism type Khadra Romo MD [address] [facility] [address] [place] [address] Phone: tel: fax: mailto:[email or web address] Lenny Pendleton MD 165 [facility] [address] [place] [address] Phone: tel: fax: mailto:[email or web address] Referral ID Status Reason Start Date Expiration Date V isits Requested Visits Authorized [id number] New Request 03/17/2025 03/17/2026 1 1 Reason for Visit * Reason Onset Date Comments [facility] PT 03/14/2025 Encounter Details Date Type Department Care Team (Late st Contact Info) Description 03/14/2025 Telephone [facility] [place] [facility] [address] [facility] [address] [place] [address] Khadra Romo MD [address] [place] [address] [email or web address] [facility] PT Social History Tobacco Use Types Packs/Day Years [...] Progress Notes * Bev Park LPN - 03/17/2025 3:48 PM EST New referral to Dr. Pendleton pended * Afia Valencia RN - 03/16/2025 2:55 PM EST Cardiac rehab through [facility] is 3x a week, FYI. * Khadra Romo MD - 03/15/2025 3:26 PM EST Thanks, I am all for cardiac rehab, but like I said I do need to know about the timing of his move,too. I don't think it makes sense to start a cardiac rehab program here and then move and change the program a few weeks in. * Afia Valencia I RN - 03/14/2025 2:39 PM EST [facility] with good times to reach him or to reply to gateway message. Awaiting response. * Khadra Romo MD - 03/14/2025 2:13 PM EST OK. My preference would be for cardiac rehab because it is so intensive and I think that would be great for him. On the other hand, he is moving soon and it probably does not make sense to start hereif he cannot finish the full program. Would you please call Chilo and ask him what he would like to do? * Jazmin Mark - 03/14/2025 1:49 PM EST [facility] PT lm on the triage line, reports that pt was seen today and did a home pt eval only. PT is independent in his home, and may benefit from out pt pt for cardiac rehab or stroke rehab. [facility] Call Center CSS Agent (Please do not reply to this user, as this inbox is not monitored. Thank you.) Thank you. documented in this encounter Plan of Treatment Upcoming Encounters Date Type Department Care Team (Late st Contact Info) Description 04/10/2025 11:00 AM EST Office Visit [facility] Neurology Neuromuscular [address], [address] [place] [address] Lenny Pendleton MD [address] [place] [address] [address] [place] [address] [email or web address] 04/28/2025 1:00 AM EST Appointment [facility] 30 [place] [address] Yuliana Givens RN 168 [place] [address] 05/03/2025 11:00 AM EST Office Visit [facility] Cardiac Arrhythmia Service [address] [facility], 5th Floor, [address] [place] [address] Jed Guido MD, MPH [address] [facility] [address] [place] [address] 06/09/2025 1:00 PM EST Office Visit [facility] Department of Neurology [address] [facility], 8th Floor, [address] [place] [address] John Chopra MD 55 [facility] [address] [place] [phone] [email or web address] 07/21/2025 8:40 AM EDT Office Visit [facility] [place] [facility] [address] [facility] [address] [place] [address] Khadra Romo MD [address] [facility] [address] [place] [address] 08/25/2025 11:00 AM EDT Office Visit [facility] Cardiology [facility] [address] [facility], [address] [place] [address] Clementine Brower MD [address] [facility], [address] [place] [address] [email or web address] Scheduled Referrals Name Type Priority Associated Diagnoses Orde r Schedule Ambulatory referral to [facility] Neu[facility] - Employed Practices Outpatient Referral Routine Parkinsonism, unspecified Parkinsonism type Ordered: 03/17/2025 documented as of this encounter Visit Diagnoses Diagnosis Parkinsonism, unspecified Parkinsonism type- Primary documented in this encounter Additional Health Concerns Assessment Noted Time PHQ-9 Depression Total Score: 12 024 3:46 PM EST PHQ-2 Depression Total Score: 1 06/28/19 25 2:08 PM EST documented as of this encounter Care Teams Lining Stamper Relationship Specialty Start Date End Date Khadra Romo MD [address] [facility] [address] [place] [address] [email or web address] PCP - General Family Medicine 06/12/21 John Chopra MD 55 [facility] 835 [place] [phone] [email or web address] Neurology 06/17/23 Lenny [place] MD [address] [facility] [address] [place] [address] [email or web address] [email or web address] 06/17/23 documented as of this encounter Additional Source Comments The information contained in this document represents components of the legal health record. It is not the complete legal health record.[facility]
--- OUTSIDE RECORDS SUMMARY | 2025-03-22 12:47 | XMS_ITS | Encounter Summary ---
Author Organization [facility] Address [address] [facility] [address] [place] [address] Phone Care Team Providers Care Research Technician Name Role Phone Khadra Romo MD Primary Care Provider [phone] John Chopra MD Unavailable [phone] Lenny Pendleton MD Unavailable Encounter Details Date Type Department Care Team (Late st Contact Info) Description 01/21/2024 Transcribe Orders [facility] Specimen Processing 30 [place] [address] Khadra Romo MD [address] [facility] [address] [place] [address] [email or web address] Social History Tobacco Use Types Packs/Day Years [...] high school, GED, job training, learning the [place] language, technical skills, or developing parenting skills)? [...] Description 04/10/2025 11:00 AM EST Office Visit [facility] Neurology Neuromuscular [place] 52 [facility], [address] [place] [address] Lenny Pendleton MD [address] [facility] [address] [place] [address] [email or web address] 04/28/2025 1:00 AM EST Appointment [facility] 30 [place] [phone] Yuliana Givens RN 168 [place] [address] [email or web address] 05/03/2025 11:00 AM EST Office Visit [facility] Cardiac Arrhythmia Service 32 [facility], 5th Floor, [address] [place] [address] Jed Guido MD, MPH 55 [facility] [address] [place] [address] 06/09/2025 1:00 PM EST Office Visit [facility] Department of Neurology 55 [facility], 8th Floor, [address] [place] [address] John Chopra MD 55 [facility] [address] [place] [phone] [email or web address] 07/21/2025 8:40 AM EDT Office Visit [facility] [place] [facility] [address] [facility] [address] [place] [address] Khadra Romo MD [address] [facility] [address] [place] [address] 08/25/2025 11:00 AM EDT Office Visit [facility] Cardiology [place] [facility] [address] [facility], [address] [place] [address] Clementine Brower MD [address] [place] [phone] [email or web address] [email or web address] [email or web address] documented as of this encounter Visit Diagnoses Not on filedocumented in this encounter Additional Health Concerns Assessment Noted Time PHQ-9 Depression Total Score: 12 024 3:46 PM EST PHQ-2 Depression Total Score: 4 06/23/19 24 11:49 PM EST documented as of this encounter Care Teams Research Technician Relationship Specialty Start Date End Date Khadra Romo MD [address] [place] [address] [email or web address] [email or web address] [email or web address] PCP - General Family Medicine 06/12/21 John Chopra MD [address] [place] [phone] [email or web address] Neurology 06/17/23 Rai Pendleton-Alonzo Zelaya MD [address] [place] [address] [address] [place] [address] [email or web address] Neurology 06/17/23 documented as of this encounter Additional Source Comments The information contained in this document represents components of the legal health record. It is not the complete legal health record.[facility]
--- OUTSIDE RECORDS SUMMARY | 2025-03-22 12:47 | XMS_ITS | Encounter Summary ---
Author Organization [facility] Address [address] [place] [address] Phone Care Team Providers Care Screw Machine Adjuster Automatic Name Role Phone Khadra Romo MD Primary Care Provider [phone] John Chopra MD Unavailable [phone] Lenny Pendleton MD Unavailable Reason for Visit * Reason Onset Date Comments Patient Returned Call 01/16/2025 Encounter Details Date Type Department Care Team (Late st Contact Info) Description 01/16/2025 Telephone [facility] SUPPORT 2 [place] [address] Maddison Irizarry CNP 2 [place] [address] [email or web address] Patient Returned Call Social History Tobacco [...] feeling fine currently, no concerns. Has called [facility] cardiology to request appointment, has not heard back yet. Was not happy with [facility] and would like to proceed with [facility]. F/U appt scheduled for 01/19 with PCP. [...] Description 04/10/2025 11:00 AM EST Office Visit [facility] Neurology Neuromuscular [address], [address] [place] [address] Lenny Pendleton MD [address] [place] [address] [address] [place] [address] [email or web address] 04/28/2025 1:00 AM EST Appointment [facility] 30 [place] [address] Yuliana Givens RN 168 [place] [address] 05/03/2025 11:00 AM EST Office Visit [facility] Cardiac Arrhythmia Service 32 [facility], 5th Floor, [address] [place] [address] Jed Guido MD, MPH [address] [facility] [address] [place] [address] 06/09/2025 1:00 PM EST Office Visit [facility] Department of Neurology 55 [facility], 8th Floor, [address] [place] [address] John Chopra MD 55 [facility] 835 [place] [phone] [email or web address] [email or web address] [facility] [email or web address] 07/21/2025 8:40 AM EDT Office Visit [facility] [place] [facility] [address] [facility] [address] [place] [address] Khadra Romo MD 15 [facility] [address] [place] [address] 08/25/2025 11:00 AM EDT Office Visit [facility] Cardiology [facility] 52 [facility], [address] [place] [address] Clementine Brower MD 40 [facility], [address] [place] [phone] [email or web address] documented as of this encounter Visit Diagnoses Not on filedocumented in this encounter Additional Health Concerns Assessment Noted Time PHQ-9 Depression Total Score: 12 024 3:46 PM EST PHQ-2 Depression Total Score: 1 06/28/19 25 2:08 PM EST documented as of this encounter Care Teams Screw Machine Adjuster Automatic Relationship Specialty Start Date End Date Khadra Romo MD 15 [facility] [address] [place] [address] [email or web address] PCP - General Family Medicine 06/12/21 John Chopra MD 55 [facility] [address] [place] [phone] [email or web address] [email or web address] [facility] [email or web address] Neurology 06/17/23 Lenny Pendleton MD 165 [facility] [address] [place] [address] [email or web address] Neurology 06/17/23 documented as of this encounter Additional Source Comments The information contained in this document represents components of the legal health record. It is not the complete legal health record.[facility]
--- OUTSIDE RECORDS SUMMARY | 2025-03-22 12:48 | XMS_ITS | Encounter Summary ---
Author Organization [facility] Address [address] [place] [address] Phone Care Team Providers Care Policy Writer Typist Name Role Phone Khadra Romo MD Primary Care Provider [phone] Pcp, Unknown Unavailable Unavailable John Chopra MD Unavailable [phone] Lenny Pendleton MD Unavailable Encounter Details Date Type Department Care Team (Late st Contact Info) Description 11/22/2022 Procedure Pass [facility], [address] [address] Social History Tobacco Use Types Packs/Day Years [...] [facility] [place] Neurology Neuromuscular [address], [address] [place] [address] Lenny Pendleton MD [address] [place] [address] [email or web address] 04/28/2025 1:00 AM EST Appointment [facility] 30 [place] [address] Yuliana Givens RN 168 [place] [address] 05/03/2025 11:00 AM EST Office Visit [facility] Cardiac Arrhythmia Service 32 [facility], 5th Floor, [address] [place] [address] Jed Guido MD, MPH 55 [facility] [address] [place] [address] 06/09/2025 1:00 PM EST Office Visit [facility] Department of Neurology [address] [facility], 8th Floor, [address] [place] [address] John Chopra MD 55 [facility] 835 [place] [phone] [email or web address] [email or web address] 07/21/2025 8:40 AM EDT Office Visit [facility] [place] [facility] 15 [facility] [address] [place] [address] Khadra Romo MD [address] [place] [address] 201 [place] [address] [email or web address] 08/25/2025 11:00 AM EDT Office Visit [facility] Cardiology [facility] [address] [facility], [address] [place] [address] Clementine Brower MD 40 [facility], [address] [place] [address] [email or web address] documented as of this encounter Visit Diagnoses Not on filedocumented in this encounter Additional Health Concerns Assessment Noted Time PHQ-9 Depression Total Score: 13 023 11:10 PM EST PHQ-2 Depression Total Score: 4 06/15/19 23 11:10 PM EST documented as of this encounter Care Teams Policy Writer Typist Relationship Specialty Start Date End Date Khadra Romo MD [address] [place] [address]. 201 [place] [address] [email or web address] PCP - General Family Medicine 06/12/21 Pcp, Unknown 01/28/21 06/16/23 John Chopra MD [address] [place] [address] 8[address] [place] [phone] [email or web address] [email or web address] 06/17/23 Rai Pendleton-Alonzo Zelaya MD [address] [place] [address] 820 [place] [address] [email or web address] [email or web address] 06/17/23 documented as of this encounter Additional Source Comments The information contained in this document represents components of the legal health record. It is not the complete legal health record.[facility]
--- OUTSIDE RECORDS SUMMARY | 2025-03-22 12:48 | XMS_ITS | Encounter Summary ---
Author Organization [facility] Address [address] [place] [address] Phone Care Team Providers Care Hair Designer Name Role Phone Khadra Romo MD Primary Care Provider [phone] John Chopra MD Unavailable [phone] Lenny Pendleton MD Unavailable Encounter Details Date Type Department Care Team (Late st Contact Info) Description 02/20/2025 Orders Only [facility] Family Medicine [address] [place] [address] [place] [address] Provider, MD Ramona [facility] [place] [address] Social History Tobacco Use Types [...] Description 04/10/2025 11:00 AM EST Office Visit [facility] Neurology Neuromuscular [place] 52 [facility], [address] [place] [address] Lenny Pendleton MD 165 [facility] [address] [place] [address] [email or web address] 04/28/2025 1:00 AM EST Appointment [facility] 30 [place] [phone] Yuliana Givens RN 168 [place] [address] [email or web address] 05/03/2025 11:00 AM EST Office Visit [facility] Cardiac Arrhythmia Service [address] [facility], 5th Floor, [address] [place] [address] Jed Guido MD, MPH 55 [facility] [address] [place] [address] [email or web address] 06/09/2025 1:00 PM EST Office Visit [facility] Department of Neurology 55 [facility], 8th Floor, [address] [place] [address] John Chopra MD 55 [facility] 835 [place] [phone] [email or web address] 07/21/2025 8:40 AM EDT Office Visit [facility] [place] [facility] [address] [facility] [address] [place] [address] Khadra Romo MD 15 [facility] [address] [place] [address] 08/25/2025 11:00 AM EDT Office Visit [facility] Cardiology [place] [facility] [address] [facility], [address] [place] [address] Clementine Brower MD [address] [place] [address] [email or web address] [...] documented as of this encounter Care Teams Hair Designer Relationship Specialty Start Date End Date Khadra Romo MD [address] [place] [address] [email or web address] PCP - General Family Medicine 06/12/21 John Chopra MD [address] [place] [phone] [email or web address] Neurology 06/17/23 Lenny [place] MD [address] [place] [address] 820 [place] [address] [email or web address] Neurology 06/17/23 documented as of this encounter Additional Source Comments The information contained in this document represents components of the legal health record. It is not the complete legal health record.[facility]
--- OUTSIDE RECORDS SUMMARY | 2025-03-22 12:49 | XMS_ITS | Encounter Summary ---
Author Organization [facility] Address [address] [place] [address] Phone Care Team Providers Care Retort Fireman Name Role Phone Khadra Romo MD Primary Care Provider [phone] John Chopra MD Unavailable [phone] Lenny P[place]leton MD Unavailable Encounter Details Date Type Department Care Team (Late st Contact Info) Description 02/27/2025 Orders Only [facility] Family Medicine [address] [place] [address] [place] [address] Provider, MD Ramona [facility] [place] [address] Social History Tobacco Use Types [...] Description 04/10/2025 11:00 AM EST Office [place] [facility] Neuromuscular [place] 52 [facility], [address] [place] [address] Lenny Pendleton MD 165 [facility] [address] [place] [address] [email or web address] 04/28/2025 1:00 AM EST Appointment [facility] 30 [place] [phone] Yuliana Givens RN 168 [place] [address] [email or web address] 05/03/2025 11:00 AM EST Office Visit [facility] Cardiac Arrhythmia Service 32 [facility], 5th Floor, [address] [place] [address] Jed Guido MD, MPH 55 [facility] [address] [place] [address] [email or web address] 06/09/2025 1:00 PM EST Office Visit [facility] Department of Neurology 55 [facility], 8th Floor, [address] [place] [address] John Chopra MD 55 [facility] [address]35 [place] [phone] [email or web address] 07/21/2025 8:40 AM EDT Office Visit [facility] [place] [facility] [address] [place] [address] Khadra Romo MD 15 [facility] [address] [place] [address] [email or web address] 08/25/2025 11:00 AM EDT Office Visit [facility] [place] [facility] [address] [facility], [address] [place] [address] Clementine Brower MD [address] [place] [address] [email or web address] documented as of this encounter Procedures Procedure Name Priority Date/Time Associated Diagnosis Comments OUTSIDE IMAGING Routine 02/27/2025 11:38 AM EDT OUTSIDE IMAGING Routine 02/24/2025 10:10 AM EDT OUTSIDE PROCEDURE Routine 02/24/2025 10: 07 AM EDT OUTSIDE IMAGING Routine 02/23/2025 11:37 AM EDT documented in this encounter Results * Outside Imaging Report Only (02/27/2025 11:38 AM EDT) Historical Provider IMG XR CHEST [...] as of this encounter Care Teams Retort Fireman Relationship Specialty Start Date End Date Khadra Romo MD [address] [place] [address] [email or web address] PCP - General Family Medicine 06/12/21 John Chopra MD 55 [facility] [address] [place] [phone] [email or web address] Neurology 06/17/23 Rai Pendleton-Alonzo Zelaya MD 165 [facility] 820 [place] [address] [email or web address] Neurology 06/17/23 documented as of this encounter Additional Source Comments The information contained in this document represents components of the legal health record. It is not the complete legal health record.[facility]
== END 2025-03-21 16:02 | disposition home or self-care (01) ==
LOC: HO.RHES 14:52
PROVIDERS: PCP Family Medicine; Visit Provider Student in an Organized Health Care Education/Training Program
DX: I30.0 Acute nonspecific idiopathic pericarditis (principal); Z51.81 Encounter for therapeutic drug level monitoring; Z79.624 Long term (current) use of inhibitors of nucleotide synthesis
CPT/HCPCS: 99215; G2211